=== PATIENT | male | born 1955 | race Caucasian/White ===

== ENCOUNTER 2020-05-29 12:45 | Outpatient (RCR) | payer OTHER, SELFPAY | END 2020-06-03 16:28 | disposition home or self-care (01) | LOC: HO.WCC 12:45 | PROVIDERS: PCP Internal Medicine Geriatric Medicine; Visit Provider Surgery | DX: Z09 Encounter for follow-up examination after completed treatment for conditions other than malignant neoplasm (principal); E11.9 Type 2 diabetes mellitus without complications; Z87.2 Personal history of diseases of the skin and subcutaneous tissue | CPT/HCPCS: 99212 ==

== ENCOUNTER → 2020-07-01 09:34 | Outpatient (BNVA) | payer OTHER, SELFPAY | PROVIDERS: PCP Internal Medicine Geriatric Medicine; Visit Provider Internal Medicine | DX: I25.10 Atherosclerotic heart disease of native coronary artery without angina pectoris (principal); I48.0 Paroxysmal atrial fibrillation; I50.32 Chronic diastolic (congestive) heart failure; E11.22 Type 2 diabetes mellitus with diabetic chronic kidney disease; I12.9 Hypertensive chronic kidney disease with stage 1 through stage 4 chronic kidney disease, or unspecified chronic kidney disease; N18.9 Chronic kidney disease, unspecified; E11.8 Type 2 diabetes mellitus with unspecified complications | CPT/HCPCS: 93005; 99212 ==

== ENCOUNTER 2020-07-15 12:52 | Outpatient (REF) | payer MEDICARE, SELFPAY ==
[2020-07-15 13:21] LABS: Hematocrit 30.9 % (42-52); Hemoglobin 10.6 g/dl (14.0-18.0); Mean Corpuscular HGB Conc 34.3 g/dl (31.0-36.0); Mean Corpuscular Hemoglobin 31.7 pg (27.0-33.0); Mean Corpuscular Volume 92.5 fL (80-98); Platelet Count 186 X10*3/uL (160-400); Red Blood Count 3.34 X10*6/uL (4.60-5.80); Red Cell Distribution Width 13.6 % (11.0-16.0); White Blood Count 7.9 X10*3/uL (4.8-10.8)
[2020-07-15 13:26] LABS: INTERNATIONAL NORM RATIO 1.2 (0.9-1.1); Prothrombin Time 14.1 SEC (10.8-13.0)
[2020-07-15 14:10] LABS: Anion Gap 16 (12-20); Blood Urea Nitrogen 45 mg/dL (9-16); Carbon Dioxide 28 mmol/L (22-29); Chloride 96 mmol/L (96-108); Estimated Glomerular Filt Rate 18; Glucose Random 365 mg/dL (60-115); Potassium 4.6 mmol/l (3.3-5.1); Sodium 135 mmol/L (135-145)
== END 2020-07-15 12:53 | disposition home or self-care (01) ==
LOC: HO.LAB 12:52
PROVIDERS: PCP Internal Medicine Geriatric Medicine; Visit Provider Internal Medicine
DX: I25.10 Atherosclerotic heart disease of native coronary artery without angina pectoris (principal)
CPT/HCPCS: 36415; 80048; 85027; 85610

== ENCOUNTER → 2020-08-07 14:06 | Outpatient (BNVA) | payer OTHER, MEDICAID, SELFPAY | PROVIDERS: PCP Internal Medicine Geriatric Medicine; Visit Provider Internal Medicine | DX: I25.10 Atherosclerotic heart disease of native coronary artery without angina pectoris (principal); I48.0 Paroxysmal atrial fibrillation; N18.9 Chronic kidney disease, unspecified; I13.0 Hypertensive heart and chronic kidney disease with heart failure and stage 1 through stage 4 chronic kidney disease, or unspecified chronic kidney disease; I50.32 Chronic diastolic (congestive) heart failure; E11.22 Type 2 diabetes mellitus with diabetic chronic kidney disease | CPT/HCPCS: 99212 ==

== ENCOUNTER → 2020-08-15 13:53 | Outpatient (REF) | payer MEDICARE, SELFPAY ==
--- NOTE | 2020-08-15 13:58 | CA_ITS ---
Transthoracic Echocardiogram Patient (Last, First, Middle): Liang Nunez, Gender: Male Date of : 1955 Age: 65 Procedure Date: 08/15/2020 Procedure Type: Transthoracic Echocardiogram Location: OP Height: 160.02 cm Weight: 72.58 kg BSA: 1.76 m2 Heart Rate: bpm BP: 122 / 68 mmHg [employer] Captain: Referring MD: Frankie Abarca MD Symptoms: I25.10 - Atherosclerotic heart disease of [place] coronary artery without angina pectoris Study Quality: Fair ECG Rhythm: Sinus Conclusions: - The left ventricular systolic function is mildly decreased. The visually estimated ejection fraction is between 40-45%. - Mild global hypokinesis with additional regionality along the inferior wall. - No obvious valvular pathology seen on this study. Findings Left Ventricle Normal left ventricular cavity size. There is moderately increased left ventricular wall thickness. The left ventricular systolic function is mildly decreased. The visually estimated ejection fraction is between 40-45%. E/E prime ratio is >15, consistent with elevated filling pressures. Evidence suggests grade I (mild) diastolic dysfunction. Wall Motion Rest Echo Findings The basal inferior and mid inferior segments are hypokinetic. Right Ventricle Normal right ventricular cavity size and systolic function. Atria The left atrium is normal in size. The right atrium is normal in size. Aortic Valve There is a normal trileaflet aortic valve. There is mild calcification of the aortic valve. There is no aortic valve regurgitation. Mitral Valve The mitral valve appears normal. There is trace mitral valve regurgitation. There is no mitral valve stenosis. Pulmonic Valve The pulmonic valve was not well visualized. Tricuspid Valve Normal tricuspid valve structure. There is trace tricuspid valve regurgitation. The pulmonary artery systolic pressure is normal. Great Vessels The aortic annulus, sinuses of valsalva, and asc aorta are normal in size. Venous The inferior vena cava is normal in size and collapses greater than 50% with inspiration. Pericardium/Pleural There is no evidence of pericardial effusion. Prior Study Comparison No significant change compared to prior study dated: 02/04/2020. Recommendations, Care & Conclusions No obvious valvular pathology seen on this study. Measurements 2D Linear Measurements IVSd: 1.28 0.6-0.9/0.6-1.0 cm LVIDd: 4.10 3.9-5.3/4.2-5.9 cm LVIDd Index: 2.33 2.4-3.2/2.2-3.1 cm/m2 LVIDs: 2.71 2.0-3.6 cm LVPWd: 1.32 0.7-1.1 cm Ao Root: 3.30 2.1-3.5 cm LA Diam: 3.50 2.7-3.8/3.0-4.0 cm LAIDs Index: 1.99 1.5-2.3 cm/m2 LV Mass: 241.12 67-162/88-224 g LV Mass Index: 137.00 43-95/49-115 g/m2 LVOT Diam: 2.10 3.0+(-)1.3 cm 2D Systolic Function EF 4C: 43.30 >55% EF 2C: 35.20 >55% EF BiP: 38.90 >55% Mitral Valve MV Pk E: 0.57 MV PK A: 0.94 MV Decel Time: 248.00 E/A: 0.60 E'Lateral: 3.77 E'Medial: 2.90 E/E' Med: 19.60 E/E' Lat: 15.10 PHT: 73.00 MVA PHT: 3.01 Decel [place]: 2.29 Aortic Valve AoV Pk Luiz: 1.25 AoV Mn Luiz: 0.88 AoV VTI: 0.27 AoV Pk Grad: 6.00 Aov Mn Grad: 4.00 YAYA Cont.VTI: 2.17 LVOT LVOT Pk Luiz: 0.82 LVOT Mn Luiz: 0.47 LVOT VTI: 0.17 LVOT Pk Grad: 3.00 LVOT Mn Grad: 1.00 LVOT Diam: 2.10 LVOT Area: 3.46 Diastolic Function MV Pk E: 0.57 MV Pk A: 0.94 E/A: 0.60 E'Medial: 2.90 E/E' Med: 19.60 E' Laterial: 3.77 E/E' Lat: 15.10 Tricuspid Valve TR Pk Luiz: 1.67 TR Pk Grad: 11.00 RA Press: 3.00 RVSP: 14.00 Great Vessels Aorta Ao Root-2D: 3.30 2.0-3.7 cm Ao Asc: 2.70 2.1-3.4 cm Pulmonary Valve PV Pk Luiz: 1.14 Peak PV Grad: 5.00 Updated in Other Vendor System with Status of Final Frankie Abarca MD electronically signed on 08/16/2020 3:49:55 PM with status of Final
== END ==
LOC: HO.CARD 13:53
PROVIDERS: PCP Internal Medicine Geriatric Medicine; Visit Provider Internal Medicine
DX: I25.10 Atherosclerotic heart disease of native coronary artery without angina pectoris (principal); I50.32 Chronic diastolic (congestive) heart failure
CPT/HCPCS: 93306

== ENCOUNTER 2020-11-10 04:37 | Emergency (ER) | payer MEDICARE, SELFPAY ==
--- NOTE | ~2020-11-10 | CT_ITS ---
EXAMINATION: CT CHEST WITHOUT CONTRAST CT ABDOMEN AND PELVIS WITHOUT CONTRAST CLINICAL INFORMATION: Fall with right rib pain. Right upper quadrant and right lower quadrant tenderness. COMPARISON: 01/29/2020 TECHNIQUE: Multidetector volumetric imaging was performed through the chest, abdomen and pelvis without contrast. Sagittal and coronal reformatted images were obtained on the technologist's workstation. Axial MIP volume rendering provided. This CT examination was performed using dose optimization techniques as appropriate, variously including the following: *Automated exposure control *Adjustment of mA and/or kV according to patient size (this includes techniques or standardized protocols for targeted exams where dose is matched to indication/reason for exam; i.e. extremities or head) *Use of iterative reconstruction technique DLP: 1341 mGy-cm. FINDINGS: CHEST: Lungs: The central airways are patent. Minimal dependent atelectasis bilaterally. No consolidation. No pleural effusion or pneumothorax. There are no pulmonary parenchymal nodules. Mediastinum: The heart is of normal size. Coronary artery calcifications are present. There is no pericardial effusion. Central vascular structures are unremarkable. No hilar or mediastinal lymphadenopathy. Chest Wall/Axilla: No lymphadenopathy. No chest wall mass. ABDOMEN/PELVIS: Liver, Gallbladder, Biliary Tree: The liver is normal in size, shape, and attenuation. No focal hepatic lesion or biliary ductal dilatation is present. Multiple small stones are seen layering in the gallbladder lumen. No wall thickening or pericholecystic fluid. Pancreas: Unremarkable. Spleen: Unremarkable. Adrenal Glands: Unremarkable. Kidneys and Ureters: The kidneys are normal in size, shape, and attenuation. No hydronephrosis, hydroureter or calculi seen. Symmetric bilateral perinephric stranding. Bladder: Unremarkable. Gastrointestinal Tract: The stomach is unremarkable. Normal caliber small bowel. There is no obstruction. No colonic wall thickening or inflammatory change. Anastomotic suture line at the distal ileum. The appendix is unremarkable. Abdominal Wall: No hernia is demonstrated. Lymphovascular Structures: Lymph nodes: Normal. Vascular: Normal caliber aorta with mild atherosclerotic calcification. Pelvic Viscera: The prostate and seminal vesicles are unremarkable. OSSEOUS STRUCTURES: No suspicious sclerotic or lytic bone lesions are identified. Multilevel degenerative changes throughout the spine. Vertebral body height and alignment is maintained. Multiple healed rib fractures are seen bilaterally. Chronic healed right clavicular fracture. There is a subtle lucency through the right lateral 10th rib. This could represent a nondisplaced fracture. Screw fixation hardware in the proximal right femur. CT/CT abdomen pelvis wo con IMPRESSION: Subtle lucency through the right lateral 10th rib may represent a nondisplaced fracture. Otherwise no acute traumatic finding of the chest, abdomen, or pelvis. Cholelithiasis.
--- NOTE | ~2020-11-10 | CT_ITS ---
EXAMINATION: NONCONTRAST HEAD CT NONCONTRAST CERVICAL SPINE CT INDICATION INFORMATION: Fall. Neck pain. COMPARISON: 03/11/2019 TECHNIQUE: Separate noncontrast CT examinations of the head and cervical spine were performed. Coronal and sagittal images were created for each examination at the technologist workstation. This CT examination was performed using dose optimization techniques as appropriate, variously including the following: *Automated exposure control *Adjustment of mA and/or kV according to patient size (this includes techniques or standardized protocols for targeted exams where dose is matched to indication/reason for exam; i.e. extremities or head) *Use of iterative reconstruction technique DLP: 1141 mGy-cm FINDINGS: Head: There is no evidence of acute intracranial hemorrhage or territorial infarction. No abnormal mass effect or midline shift is seen. [place] to white matter differentiation is well preserved. No extra-axial fluid collections are identified. No hydrocephalus. Proportional prominence of the ventricles and sulcal spaces is consistent with mild volume loss. Patchy periventricular and deep white matter hypoattenuation is consistent with mild small vessel ischemic changes. Chronic lacunar infarct in the left basal ganglia. Bilateral basal ganglia mineralization No acute osseous or soft tissue abnormality. The mastoid air cells and visualized portions of the paranasal sinuses are well aerated. Cervical spine: There is anatomic alignment of the vertebral bodies and posterior elements. The atlantoaxial and atlantooccipital articulations are intact. Vertebral body heights are maintained. There is multilevel intervertebral disc space narrowing with endplate osteophyte formation and facet arthropathy. No evidence of acute fracture. No prevertebral soft tissue swelling. Visualized portions of the lung apices are unremarkable. The thyroid gland is unremarkable. CT/CT cervical spine wo con IMPRESSION: 1. No acute intracranial finding. 2. No acute fracture or malalignment of the cervical spine. Mild to moderate degenerative changes.
[2020-11-10 04:45] VITALS: BP 125/85; PULSE 70; RESP 16; TEMP 36.9; O2SAT 99; BMI 26.5
--- NOTE | 2020-11-10 04:51 | PC.NURSE ---
at bedside for primary eval.
--- NOTE | 2020-11-10 04:54 | PC.NURSE ---
Per pt and rear admiral, pt reports a slip and fall while walking yesterday @ 2300, states he did not have anything to hold onto. Pt reporting +LOC. Pt aware of plan for CT of head, neck and abdomen.
[2020-11-10] MEDS: Acetaminophen 325 MG TABLET 975 MG PO (05:07)
[2020-11-10] MEDS: oxyCODONE HCl Immed Release 5 MG TABLET PO (05:07)
--- NOTE | 2020-11-10 05:09 | PC.NURSE ---
Pt medicated per SEP. Off to CT on hospital bed.
--- NOTE | 2020-11-10 06:13 | ED.GENADULT ---
HPI - General Adult General Chief complaint: Fall Stated complaint: Abdominal Pain Time Seen by Provider: 11/10/20 04:48 Source: patient Mode of arrival: EMS Limitations: language barrier (The patient's 1st language is [place], he does speak some Kyrgyz, the [employer] media services coordinator was used to obtain information) History of Present Illness HPI narrative: 65-year-old male who presents emergency department for evaluation of injuries from a fall that occurred last night at 11:00 p.m... The patient states that he lost his balance and fell. He states that he struck his head, right side of his chest and abdomen on the floor. He believes that he may have had a brief loss of consciousness. He is currently complaining of a mild, constant, throbbing headache located throughout his entire head. He is also complaining of right-sided rib pain which is a sharp pain which is worse with breathing and movement and is 8/10 at its worst. He is also complaining of right upper abdominal pain which is vague in describing, the pain is constant and mild to moderate intensity. The patient states that he was unable to sleep secondary to his pain therefore [facility] and came to the emergency department for evaluation. Related Data Home Medications Medication Instructions Recorded Confirmed amiodarone 200 mg tablet 200 mg PO QAM 07/01/20 08/07/20 apixaban 2.5 mg tablet 2.5 mg PO BID 07/01/20 08/07/20 aspirin 81 mg tablet,delayed 81 mg PO DAILY 07/01/20 08/07/20 release bumetanide 1 mg tablet 1 mg PO BID 07/01/20 08/07/20 carvedilol 3.125 mg tablet 3.125 mg PO BID 07/01/20 08/07/20 cholecalciferol (vitamin D3) 50 50 mcg PO DAILY 07/01/20 08/07/20 mcg (2,000 unit) tablet fluoxetine 20 mg capsule 20 mg PO QAM 07/01/20 08/07/20 Previous Rx's Medication Instructions Recorded insulin aspart U-100 100 unit/mL 150 unit SUBCUT QPM #3 ml 07/08/20 (3 mL) subcutaneous pen insulin glargine 100 unit/mL (3 30 unit SUBCUT QAM #3 ml 07/08/20 mL) subcutaneous pen atorvastatin 80 mg tablet 80 mg PO BEDTIME #90 tab 07/22/20 oxycodone 5 mg PO Q4H PRN #14 tab 11/10/20 Allergies Allergy/AdvReac Type Severity Reaction Status Date / Time No Known Allergies Allergy Verified 11/10/20 04:50 Review of Systems Review of Systems: Yes all other systems are reviewed and are negative FORMERLY [facility], [facility]–1983 Past Medical History FORMERLY [facility], [facility]–1983 Narrative: The patient denies tobacco, alcohol and drug use. Medical History Atherosclerotic cardiovascular disease Chronic heart failure with preserved ejection fraction Chronic kidney disease, unspecified ESRD (end stage renal disease) on dialysis Essential hypertension PAF (paroxysmal atrial fibrillation) Type 2 diabetes mellitus with unspecified complications Surgical History History of cardiac catheterization (~07/18/20) History of colon resection Family History Family History Father Esophageal cancer Mother Diabetes Hypertension Social History Social History Smoking Status: Never smoker Advance Directives: No Physical Exam Vital Signs: Vital Signs: Last Vital Signs Temp 98.4 F 11/10/20 04:45 Pulse 70 11/10/20 04:45 Resp 16 11/10/20 04:45 BP 125/85 11/10/20 04:45 Pulse Ox 99 11/10/20 04:45 Body Mass Index 26.5 Const: General: cooperative and healthy appearing Orientation/consciousness: oriented to person and oriented to place Limitations: no limitations HENMT: Head: Yes normal to inspection, Yes normocephalic and Yes other (Right forehead ecchymosis and hematoma) Ears: external ears normal General nose exam: Normal external nose present Face and sinus: Yes normal facial exam Mouth: Normal oral and palatal mucosa present Throat: Yes posterior oropharynx normal Eyes: Periorbital: periorbital findings normal Eyelids: Yes eyelids normal Conjunctivae: conjunctivae normal Sclerae: sclerae normal Corneas: corneas normal Pupils: Equal, round and reactive pupils present Direct Ophthalmoscopy: normal light reflex Neck: Neck: Yes full ROM, Yes no lymphadenopathy, Yes no meningeal signs, Yes trachea midline and Yes supple Chest: Chest palpation & inspection: normal inspection of the chest and tenderness rib (Right lateral lower ribs) Resp: Effort & Inspection: normal respiratory effort and able to speak in complete sentences Auscultation: clear to auscultation bilaterally Cardio: Rate: regular rate Rhythm: regular rhythm Heart sounds: S1 normal heart sound present, S2 normal heart sound present and no murmurs GI: Inspection: Yes normal to inspection Palpation (GI): Soft to palpation, Tenderness to palpation present (GI) in the RUQ (Moderate), no guarding, not rigid and No hepatosplenomegaly present : General: Yes no CVA tenderness Back/Spine/Pelvis: Back: no CVA tenderness Cervical Spine: normal cervical lordosis Thoracic/Lumbar Spine: thoracic and lumbar spine normal to inspection Skin: Lesions: no lesions Rashes: no rashes Wounds: no wounds Neuro: General: oriented to person, oriented to place and no meningeal signs Cranial nerves: Yes CN's II-XII intact bilaterally and Yes Equal, round and reactive pupils present Cognition (Neuro): normal cognition Motor exam (neuro): 5/5 motor strength present throughout Extrem: General: Yes normal to inspection and Yes full ROM Psych: Appearance: well kempt Mental Status: mental status grossly normal Speech and movement: Normal speech and movement present Affect: normal affect Attitude: cooperative Thought process: Normal thought process present Thought content: Normal thought content present Course Course Course Narrative: 65-year-old male who presents emergency department for evaluation of injuries secondary to a fall that occurred last night at 11:00 p.m.. The patient states that he lost his balance, tripped and fell striking his head, and landing on his right chest and abdomen. The patient is on Eliquis. Examination did reveal evidence of head injury with a a right forehead hematoma, he also had tenderness with palpation of his right lower lateral ribcage and right upper quadrant of his abdomen. CT scan of the head, cervical spine, chest, abdomen pelvis were obtained. The only finding is a possible nondisplaced right 10th rib fracture. The patient was treated with oxycodone and Tylenol orally with improvement of his pain. He will be discharged home with printed instructions on rib fractures. He will also be given a prescription for oxycodone and he was advised to take Tylenol as well for his pain. He will need to follow-up with his PCP for re-evaluation within 2 days. Discharge Plan Discharge Clinical Impression: Fall Qualifiers: Encounter type: initial encounter Qualified Code(s): W19.XXXA - Unspecified fall, initial encounter Closed head injury Qualifiers: Encounter type: initial encounter Qualified Code(s): S09.90XA - Unspecified injury of head, initial encounter Abdominal wall contusion Qualifiers: Encounter type: initial encounter Qualified Code(s): S30.1XXA - Contusion of abdominal wall, initial encounter Closed rib fracture Qualifiers: Encounter type: initial encounter Rib fracture type: single rib Laterality: right Qualified Code(s): S22.31XA - Fracture of one rib, right side, initial encounter for closed fracture Patient Disposition: Home, Self-Care Instructions: Rib Fracture (ED), Head Injury (ED) Additional Instructions: The CT scan of your head, neck and abdomen revealed no abnormalities. The CT scan of your chest revealed a nondisplaced right sided 10th rib fracture. Take Tylenol (acetaminophen) 500 mg pills, 2 pills every 4 to 6 hours as needed for pain. For pain not relieved by Tylenol take oxycodone 5 mg pills, 1 pill every 4-6 hours as needed for pain. This medication is a narcotic pain medication and can be addicting. If your concerned about addiction do not get this medication filled or you can ask your pharmacist to give you less pills than prescribed. This medication will make you sleepy and constipated. Do not take tramadol while taking oxycodone. Follow-up with your doctor in 2 days. Please return to the emergency department if your symptoms get worse or if you develop any symptoms that are concerning to you. Prescriptions: New oxycodone 5 mg tablet 5 mg PO Q4H PRN (Reason: pain) Qty: 14 RF: 0 No Action atorvastatin 80 mg tablet 80 mg PO BEDTIME Qty: 90 RF: 3 aspirin 81 mg tablet,delayed release (DR/EC) 81 mg PO DAILY RF: 0 amiodarone 200 mg tablet 200 mg PO QAM RF: 0 carvedilol 3.125 mg tablet 3.125 mg PO BID RF: 0 bumetanide 1 mg tablet 1 mg PO BID RF: 0 Eliquis 2.5 mg tablet 2.5 mg PO BID RF: 0 cholecalciferol (vitamin D3) 50 mcg (2,000 unit) tablet 50 mcg PO DAILY RF: 0 fluoxetine 20 mg capsule 20 mg PO QAM RF: 0 Lantus Solostar U-100 Insulin 100 unit/mL (3 mL) insulin pen 30 unit subcut QAM Qty: 3 RF: 0 insulin aspart U-100 [Novolog Flexpen U-100 Insulin] 100 unit/mL (3 mL) insulin pen 150 unit subcut QPM Qty: 3 RF: 0 Print Language: [place]
--- NOTE | 2020-11-10 06:16 | PC.NURSE ---
This RN calling [facility] in [place]. [facility] agreeable to accepting pt if he arrives by dialysis by 0900. MD at bedside discussing results and plan of care.
[2020-11-10 06:40] VITALS: BP 169/84; PULSE 61; RESP 16; O2SAT 96
== END 2020-11-10 07:10 | disposition home or self-care (01) ==
PROVIDERS: Emergency Provider Emergency Medicine Emergency Medical Services; PCP Internal Medicine Geriatric Medicine
DX: S09.90XA Unspecified injury of head, initial encounter (principal); S30.1XXA Contusion of abdominal wall, initial encounter; S22.31XA Fracture of one rib, right side, initial encounter for closed fracture; W01.10XA Fall on same level from slipping, tripping and stumbling with subsequent striking against unspecified object, initial encounter; E11.22 Type 2 diabetes mellitus with diabetic chronic kidney disease; I13.2 Hypertensive heart and chronic kidney disease with heart failure and with stage 5 chronic kidney disease, or end stage renal disease; I50.9 Heart failure, unspecified; N18.6 End stage renal disease; Z99.2 Dependence on renal dialysis; Y93.9 Activity, unspecified; Y92.039 Unspecified place in apartment as the place of occurrence of the external cause; Y99.9 Unspecified external cause status
CPT/HCPCS: 70450; 71250; 72125; 74176; 99284

== ENCOUNTER 2021-02-01 16:29 | Emergency (ER) | payer MEDICARE, SELFPAY ==
--- NOTE | 2021-02-01 | ECG_ITS ---
Test Reason : LOC Blood Pressure : / mmHG Vent. Rate : 056 BPM Atrial Rate : 056 BPM P-R Int : 218 ms QRS Dur : 126 ms QT Int : 492 ms P-R-T Axes : 034 -51 122 degrees QTc Int : 474 ms Sinus bradycardia with 1st degree A-V block Left axis deviation Non-specific intra-ventricular conduction block T wave abnormality, consider lateral ischemia Abnormal ECG When compared with ECG of 13-FEB-2020 16:17, [place] interval has increased Vent. rate has decreased BY 34 BPM T wave inversion more evident in Lateral leads Referred By: Marilee Orellana Electronically Signed By:WILFREDO THOMPSON
--- NOTE | ~2021-02-01 | CT_ITS ---
EXAMINATION: CT HEAD WITHOUT CONTRAST CT FACIAL BONES WITHOUT CONTRAST CT CERVICAL SPINE WITHOUT CONTRAST CLINICAL INFORMATION: Fall and head injury. Fall with neck pain. Right orbital hematoma after fall. Rule out orbital fracture COMPARISON: CT head and C-spine 11/10/2020 TECHNIQUE: Imaging was performed from the skull base to vertex without intravenous administration of contrast. In addition, helical noncontrast CT imaging was acquired through the cervical spine and facial bones and source images were reviewed along with axial reconstructions and sagittal and coronal MPRs. This CT examination was performed using dose optimization techniques as appropriate, variously including the following: *Automated exposure control *Adjustment of mA and/or kV according to patient size (this includes techniques or standardized protocols for targeted exams where dose is matched to indication/reason for exam; i.e. extremities or head) *Use of iterative reconstruction technique Total exam dose-length product [id number] mGy-cm FINDINGS: HEAD: No intracranial mass, hemorrhage, or midline shift is visualized. Similar appearance of the ventricles and sulci. No extra-axial collections are identified. Mild patchy periventricular and subcortical white matter hypodensity is seen, nonspecific but typically attributed to chronic microvascular white matter ischemic changes. Again seen is similar chronic CSF density lacunar infarct of the left basal ganglia. Chronic senescent basal ganglia calcifications are again noted as well. There is trace fluid in the left mastoid air cells inferiorly. FACIAL BONES: Right supraorbital scalp soft tissue swelling is seen. No orbital or facial bone fracture seen. The right globe and orbits are normal. Right maxillary sinus mucous retention cyst or polyp. No sinus fluid levels to suggest acute sinusitis. No depressed nasal bone fracture. There is rightward nasal septal deviation present previously. No mandibular fracture seen. CERVICAL SPINE: There is straightening and mild reversal of the normal cervical lordosis. Normal prevertebral soft tissues. There is loss of disc height with endplate sclerosis and anterior osteophytosis most notable at C5-C6 and C6-C7, similar to prior studies. Multilevel facet arthropathy is again seen. Mild posterior broad-based disc bulges are again seen several levels. No acute fracture seen. CT/CT cervical spine wo con IMPRESSION: Right supraorbital scalp soft tissue hematoma but no facial fracture seen. Similar appearance of chronic intracranial abnormalities but no acute intracranial hemorrhage. Similar appearance of chronic multilevel degenerative changes of the cervical spine with no acute fracture or dislocation seen.
[2021-02-01 16:34] VITALS: BP 138/82; BP 171/72; PULSE 58; PULSE 59; RESP 16; TEMP 37.1; O2SAT 95; O2SAT 97; BMI 29.0
--- NOTE | 2021-02-01 17:00 | ECG_ITS ---
Test Reason : LOC Blood Pressure : / mmHG Vent. Rate : 056 BPM Atrial Rate : 056 BPM P-R Int : 220 ms QRS Dur : 124 ms QT Int : 488 ms P-R-T Axes : 025 -50 124 degrees QTc Int : 470 ms Sinus bradycardia with 1st degree A-V block Left anterior fascicular block ST & T wave abnormality, consider lateral ischemia Abnormal ECG When compared with ECG of 01-FEB-2021 16:45, No significant change was found Referred By: Marilee Orellana Electronically Signed By:WILFREDO THOMPSON
--- NOTE | 2021-02-01 17:00 | ED.FALL ---
HPI - Fall General Chief Complaint: Fall Stated Complaint: fall Time Seen by Provider: 02/01/21 16:57 Source: patient, EMS and hydro excavation operator Mode of arrival: EMS Limitations: no limitations History of Present Illness HPI Narrative: 66-year-old male history of end-stage renal disease and is as came in by EMS for evaluation after a fall. Patient was in the did not realize he was at the edge of the bed inpatient turn fell on the floor had some nightstand next to the bed hitting his right, patient landed on hands and knees and patient got himself up back to the bed, patient normally lives home by himself he has a visiting POWER GENERATING PLANT OPERATOR who found him with right thigh hematoma, patient decided to come to the hospital for further evaluation. Patient complained of right orbital mild pain, no neck pain, no headache, no LOC. Patient scheduled for dialysis. Related Data Home Medications Medication Instructions Recorded Confirmed amiodarone 200 mg tablet 200 mg PO QAM 07/01/20 08/07/20 apixaban 2.5 mg tablet 2.5 mg PO BID 07/01/20 08/07/20 aspirin 81 mg tablet,delayed 81 mg PO DAILY 07/01/20 08/07/20 release bumetanide 1 mg tablet 1 mg PO BID 07/01/20 08/07/20 carvedilol 3.125 mg tablet 3.125 mg PO BID 07/01/20 08/07/20 cholecalciferol (vitamin D3) 50 50 mcg PO DAILY 07/01/20 08/07/20 mcg (2,000 unit) tablet fluoxetine 20 mg capsule 20 mg PO QAM 07/01/20 08/07/20 Previous Rx's Medication Instructions Recorded insulin aspart U-100 100 unit/mL 150 unit SUBCUT QPM #3 ml 07/08/20 (3 mL) subcutaneous pen insulin glargine 100 unit/mL (3 30 unit SUBCUT QAM #3 ml 07/08/20 mL) subcutaneous pen atorvastatin 80 mg tablet 80 mg PO BEDTIME #90 tab 07/22/20 oxycodone 5 mg PO Q4H PRN #14 tab 11/10/20 Allergies Allergy/AdvReac Type Severity Reaction Status Date / Time No Known Allergies Allergy Verified 11/10/20 04:50 Review of Systems Review of Systems: All other systems are reviewed and are negative Constitutional: Reports as per HPI and Reports no additional constitutional complaints Eyes: Reports as per HPI and Reports no additional eye complaints Reports system reviewed and no additional complaints, except as documented Cardiovascular: Reports as per HPI and Reports no additional cardiovascular complaints Respiratory: Reports as per HPI and Reports no additional respiratory complaints Gastrointestinal: Reports as per HPI and Reports no additional gastrointestinal complaints Genitourinary: Reports no additional female genitourinary complaints Musculoskeletal: Reports no additional musculoskeletal complaints Skin/Breast: Reports system reviewed and no additional complaints, except as docu Psychiatric: Reports no additional psychiatric complaints Endocrine: Reports no additional endocrine complaints Hematologic/Lymphatic: Reports no additional hematologic/lymphatic complaints Allergic/Immunologic: Reports no additional allergic/immunologic complaints Reports system reviewed and no additional complaints, except as documented and Reports Abnormal speech present [facility] Past Medical History Medical History Atherosclerotic cardiovascular disease Chronic heart failure with preserved ejection fraction Chronic kidney disease, unspecified ESRD (end stage renal disease) on dialysis Essential hypertension PAF (paroxysmal atrial fibrillation) Type 2 diabetes mellitus with unspecified complications Surgical History History of cardiac catheterization (~07/18/20) History of colon resection Family History Family History Father Esophageal cancer Mother Diabetes Hypertension Social History Social History Advance Directives: No Advance Directives Information Provided: Yes Physical Exam Vital Signs: Vital Signs: Last Vital Signs Temp 97.6 F 02/01/21 18:55 Pulse 55 02/01/21 18:55 Resp 16 02/01/21 18:55 BP 163/80 H 02/01/21 18:55 Pulse Ox 97 02/01/21 18:55 Body Mass Index 29.0 Vital signs have been reviewed as appeared to be correct. Blood pressure normal. Heart rate normal. Respiration rate normal. Temperature normal. Oxygen saturation normal. Appearance: Alert. Oriented X3. No acute distress. Head: Normal external exam. Normocephalic. Atraumatic. No Norris signs noted. No raccoon eyes noted Eyes: PERRLA. EOMI. Right periorbital hematoma. no tender eye movements. ENT: TM's Normal. Pharynx normal. Uvula midline. Moist mucous membranes. No trismus noted. No drooling noted. No muffled voice noted. Neck: Normal inspection. Neck supple. FROM. No adenopathy. Thyroid Normal. No meningeal signs. No neck mass noted. CVS: Normal heart rate and rhythm. Heart sound normal. No murmurs noted. Pulses normal throughout. Respiratory: No respiratory distress. Painless inspiration. Breath sounds normal. No wheezes/rales/rhonchi noted. Chest nontender. No accessory muscle usage noted or decreased air movement noted. Abdomen: Soft and nontender. Bowel sounds normal in all 4 quadrants. No distention noted. No organomegaly noted. No visible injury noted. Back: No CVA tenderness. Full range of motion noted. Skin: Skin warm and dry. Normal skin color. Normal skin turgor. No rashes/lesions/lacerations noted. Extremities: No lower extremity edema. Extremities exhibit normal range of motion. Extremities nontender. Neuro: Oriented X 3. No motor deficit. No sensory deficit. Reflexes normal. Course Course Course Narrative: Assessment and plan. 66-year-old male with end-stage renal disease scheduled to have renal dialysis tomorrow, came in after and mechanical fall from his bed causing left periorbital hematoma. Patient's GCS is 15, normal neuro exam, CT of the head/facial/C-spine is unremarkable. Will discharge, he assures, Tylenol p.r.n.. MDM - Fall Imaging Data Head/C-spine/facial CT.: Radiologist's impression: Right supraorbital scalp soft tissue hematoma but no facial fracture seen. Similar appearance of chronic intracranial abnormalities but no acute intracranial hemorrhage. Similar appearance of chronic multilevel degenerative changes of the cervical spine with no acute fracture or dislocation seen. Discharge Plan Discharge Clinical Impression: Accident due to mechanical fall without injury, Periorbital hematoma of right eye Patient Disposition: Home, Self-Care Instructions: Hematoma (ED) Additional Instructions: Keep your appointment for dialysis tomorrow and be there in time. Prescriptions: No Action atorvastatin 80 mg tablet 80 mg PO BEDTIME Qty: 90 RF: 3 oxycodone 5 mg tablet 5 mg PO Q4H PRN (Reason: pain) Qty: 14 RF: 0 aspirin 81 mg tablet,delayed release (DR/EC) 81 mg PO DAILY RF: 0 amiodarone 200 mg tablet 200 mg PO QAM RF: 0 carvedilol 3.125 mg tablet 3.125 mg PO BID RF: 0 bumetanide 1 mg tablet 1 mg PO BID RF: 0 Eliquis 2.5 mg tablet 2.5 mg PO BID RF: 0 cholecalciferol (vitamin D3) 50 mcg (2,000 unit) tablet 50 mcg PO DAILY RF: 0 fluoxetine 20 mg capsule 20 mg PO QAM RF: 0 Lantus Solostar U-100 Insulin 100 unit/mL (3 mL) insulin pen 30 unit subcut QAM Qty: 3 RF: 0 insulin aspart U-100 [Novolog Flexpen U-100 Insulin] 100 unit/mL (3 mL) insulin pen 150 unit subcut QPM Qty: 3 RF: 0 Referrals: Hailey,MD Rayray [Primary Care Provider] - 2 days
[2021-02-01 17:31] VITALS: BP 196/59; PULSE 55; RESP 16; O2SAT 99
[2021-02-01] MEDS: Acetaminophen 325 MG TABLET 650 MG PO (17:40)
[2021-02-01] MEDS: oxyCODONE HCl Immed Release 5 MG TABLET PO (17:40)
[2021-02-01 18:55] VITALS: BP 163/80; PULSE 55; RESP 16; TEMP 36.4; O2SAT 97
== END 2021-02-01 20:27 | disposition home or self-care (01) ==
PROVIDERS: Emergency Provider Emergency Medicine; PCP Internal Medicine Geriatric Medicine
DX: S00.11XA Contusion of right eyelid and periocular area, initial encounter (principal); W06.XXXA Fall from bed, initial encounter; E11.22 Type 2 diabetes mellitus with diabetic chronic kidney disease; I13.2 Hypertensive heart and chronic kidney disease with heart failure and with stage 5 chronic kidney disease, or end stage renal disease; N18.6 End stage renal disease; I50.9 Heart failure, unspecified; Z99.2 Dependence on renal dialysis; Z79.4 Long term (current) use of insulin; I48.0 Paroxysmal atrial fibrillation; Z79.02 Long term (current) use of antithrombotics/antiplatelets; Z79.82 Long term (current) use of aspirin; Z79.899 Other long term (current) drug therapy; Z79.01 Long term (current) use of anticoagulants; Y93.89 Activity, other specified; Y92.032 Bedroom in apartment as the place of occurrence of the external cause; Y99.9 Unspecified external cause status
CPT/HCPCS: 70450; 70486; 72125; 93005; 99285

== ENCOUNTER 2021-09-21 13:42 | Emergency (ER) | payer MEDICARE, SELFPAY ==
--- NOTE | ~2021-09-21 | XR_ITS ---
EXAMINATION: XR CHEST CLINICAL INFORMATION: Shortness of breath, missed dialysis COMPARISON: None TECHNIQUE: 2 views of the chest were obtained. FINDINGS: The lungs are well-expanded and clear. The heart size and pulmonary vascularity is normal. There is a left central venous dialysis catheter with the tip at the atrial caval junction. No gross bony abnormality seen except for a old healed left lateral ninth and 10th rib fractures. XR/XR chest 2V IMPRESSION: Unremarkable chest exam.
[2021-09-21 13:51] VITALS: BP 161/84; PULSE 64; O2SAT 97
[2021-09-21 13:55] VITALS: BP 168/82; PULSE 59; RESP 15; TEMP 36.6; O2SAT 96; BMI 25.7
--- NOTE | 2021-09-21 14:41 | ED_ITS ---
HPI - General Adult General Chief complaint: General Medical Stated complaint: GENERAL MALAISE Time Seen by Provider: 09/21/21 14:41 Source: patient Mode of arrival: ambulatory Limitations: language barrier History of Present Illness HPI narrative: history obtained by Therapeutic Radiologist. Patient has a cold and phlegm in the chest, starting last week. Patient had medication prescribed but it is not helping. Patient is vaccinated against COVID and flu. No fever. Patient is supposed to get dialysis 3 times a week but has not had it in a week. Onset (ago): week(s) Severity: mild Associated symptoms: cough and weakness Related Data Home Medications Medication Instructions Recorded Confirmed amiodarone 200 mg tablet 200 mg PO QAM 07/01/20 08/07/20 apixaban 2.5 mg tablet 2.5 mg PO BID 07/01/20 08/07/20 aspirin 81 mg tablet,delayed 81 mg PO DAILY 07/01/20 08/07/20 release bumetanide 1 mg tablet 1 mg PO BID 07/01/20 08/07/20 carvedilol 3.125 mg tablet 3.125 mg PO BID 07/01/20 08/07/20 cholecalciferol (vitamin D3) 50 50 mcg PO DAILY 07/01/20 08/07/20 mcg (2,000 unit) tablet fluoxetine 20 mg capsule 20 mg PO QAM 07/01/20 08/07/20 Previous Rx's Medication Instructions Recorded insulin aspart U-100 100 unit/mL 150 unit (1.5 mL) SUBCUT QPM #3 ml 07/08/20 (3 mL) subcutaneous pen (Novolog Flexpen U-100 Insulin aspart) insulin glargine 100 unit/mL (3 30 unit (0.3 mL) SUBCUT QAM #3 ml 07/08/20 mL) subcutaneous pen (Lantus Solostar U-100 Insulin) oxycodone 5 mg tablet 5 mg PO Q4H PRN #14 tab 11/10/20 atorvastatin 80 mg tablet 80 mg PO BEDTIME #90 tab 07/13/21 Allergies Allergy/AdvReac Type Severity Reaction Status Date / Time No Known Allergies Allergy Verified 11/10/20 04:50 Review of Systems Constitutional: Constitutional: Reports no additional constitutional complaints Eyes: Eyes: Reports no additional eye complaints ENT: Denies dizziness Cardiovascular: Cardiovascular: Reports no additional cardiovascular complain ts Respiratory: Respiratory: Reports as per HPI Gastrointestinal: Gastrointestinal: Reports no additional gastrointestinal complaints Musculoskeletal: Musculoskeletal: Reports no additional musculoskeletal complaints Integumentary/Breasts: Skin/Breast: Denies rash Neurologic: Reports system reviewed and no additional complaints, except as documented, Denies dizziness and Denies Sensory deficit (Neuro) Psychiatric: Psychiatric: Denies anxiety [facility] Past Medical History Medical History Atherosclerotic cardiovascular disease Chronic heart failure with preserved ejection fraction Chronic kidney disease, unspecified ESRD (end stage renal disease) on dialysis Essential hypertension PAF (paroxysmal atrial fibrillation) Type 2 diabetes mellitus with unspecified complications Surgical History History of cardiac catheterization (~07/18/20) History of colon resection Family History Family History Father Esophageal cancer Mother Diabetes Hypertension Social History Social History Alcohol intake: current Alcohol intake frequency: a few times a month Patient Tobacco Use Status: Never used Tobacco Use of substances other than those prescribed or required for medical reasons: No Advance Directives: No Advance Directives Information Provided: Yes Physical Exam ED Vital Signs: Vital Signs - 24 hr 09/21/21 13:55 09/21/21 15:45 09/21/21 18:32 Temperature 97.9 F 97.4 F 97.0 F Pulse Rate 59 60 58 Respiratory Rate 15 16 16 Blood Pressure 168/82 H 173/84 H 194/91 H Pulse Oximetry 96 98 98 BMI result Body Mass Index 25.7 Const General: healthy appearing Nutritional Appearance: average body habitus Orientation/consciousness: oriented to person and patient oriented x3 Limitations: no limitations HENMT Head: Yes normal to inspection Ears: external ears normal General nose exam: Normal external nose present Mouth: Normal oral and palatal mucosa present and oropharynx normal Throat: Yes posterior oropharynx normal Eyes General: appearance normal, both eyes and all related structures Neck Neck: Yes normal visual inspection Chest Chest palpation & inspection: normal inspection of the chest Resp Other: bilateral crackles Cardio Jugular venous distension: no JVD Rate: regular rate Rhythm: regular rhythm Heart sounds: S1 normal heart sound present and S2 normal heart sound present GI Inspection: Yes normal to inspection Palpation (GI): Soft to palpation, nontender and No hepatosplenomegaly present Auscultation: normal bowel sounds General: Yes no CVA tenderness Back/Spine/Pelvis Back: no CVA tenderness Skin General skin exam: no rashes or lesions noted Neuro General: oriented to person and patient oriented x3 Cranial nerves: Yes CN's II-XII intact bilaterally Motor exam (neuro): 5/5 motor strength present throughout Sensory Exam: No Sensory deficit (Neuro) Extrem General: Yes normal to inspection Psych Appearance: grossly normal Course Reevaluation(s) Reevaluation #1: disucssed with family and patient, that the patient needs dialysis. He is scheduled for Tuesday and he must go. Discussed with case management as well Time: 19:06 Medical Decision Making Lab Data Result diagrams: 09/21/21 16:02 09/21/21 16:02 Labs: Lab Results 09/21/21 09/21/21 Range/Units 16:02 16:02 WBC 8.3 (4.8-10.8) X10*3/uL RBC 3.27 L (4.60-5.80) X10*6/uL Hgb 9.7 L (14.0-18.0) g/dl Hct 28.1 L (42.0-52.0) % MCV 85.9 (80.0-98.0) fL MCH 29.7 (27.0-33.0) pg MCHC 34.5 (31.0-36.0) g/dl RDW 14.2 (11.0-16.0) % Plt Count 242 (160-400) X10*3/uL MPV 9.1 L (9.4-12.4) fL Immature Gran % (Auto) 1.0 H (0.0-0.4) % Neut % (Auto) 53.5 (45-73) % Lymph % (Auto) 38.2 (20-40) % [place] % (Auto) 5.6 (2-11) % Eos % (Auto) 1.2 (0-4) % Baso % (Auto) 0.5 (0-2) % Lymph # (Auto) 3.2 (1.2-4.9) X10*3/uL [place] # (Auto) 0.5 (0.1-1.2) X10*3/uL Eos # (Auto) 0.1 (0.0-0.4) X10*3/uL Baso # (Auto) 0.0 (0.0-0.2) X10*3/uL Abs Immat Gran (auto) 0.08 H (0.00-0.03) X10*3/uL Absolute Neuts (auto) 4.5 (2.0-8.3) x10*3/uL Absolute Nucleated RBC 0.000 (0.0-0.012) X10*3/uL Nucleated RBC % (auto) 0.0 (0.0-0.2) /100WBC Sodium 134 L (135-145) mmol/L Potassium 5.4 H (3.3-5.1) mmol/L Chloride 101 (96-108) mmol/L Carbon Dioxide 20 L (22-29) mmol/L Anion Gap 18 (12-20) BUN 45 H (9-16) mg/dL Creatinine 4.10 H* (0.5-1.4) mg/dL Estim Creat Clear Calc 14.4 Estimated GFR 15 Random Glucose 146 H D (60-115) mg/dL Calcium 9.1 (8.4-10.2) mg/dL ECG Data Attestation: I personally reviewed and interpreted this ECG as follows: Interpretation: sinus rate 60, RBBB, no st or twave changes Discharge Plan Discharge Clinical Impression: Chronic kidney disease, unspecified Patient Disposition: Home, Self-Care Instructions: Dialysis Diet (DC), Hemodialysis (DC) Prescriptions: No Action atorvastatin 80 mg tablet 80 mg PO BEDTIME Qty: 90 2RF oxycodone 5 mg tablet 5 mg PO Q4H PRN (Reason: pain) Qty: 14 0RF Rx Instructions: Patient may request partial fill aspirin 81 mg tablet,delayed release (DR/EC) 81 mg PO DAILY 0RF amiodarone 200 mg tablet 200 mg PO QAM 0RF carvedilol 3.125 mg tablet 3.125 mg PO BID 0RF bumetanide 1 mg tablet 1 mg PO BID 0RF Eliquis 2.5 mg tablet 2.5 mg PO BID 0RF cholecalciferol (vitamin D3) 50 mcg (2,000 unit) tablet 50 mcg PO DAILY 0RF fluoxetine 20 mg capsule 20 mg PO QAM 0RF Lantus Solostar U-100 Insulin 100 unit/mL (3 mL) insulin pen 30 unit subcut QAM Qty: 3 0RF insulin aspart U-100 [Novolog Flexpen U-100 Insulin] 100 unit/mL (3 mL) insulin pen 150 unit subcut QPM Qty: 3 0RF Rx Instructions: sliding scale Referrals: Physician,Unknown J [Primary Care Provider] - 3 days
--- NOTE | 2021-09-21 14:48 | ECG_ITS ---
Test Reason : WEAKNESS Blood Pressure : / mmHG Vent. Rate : 059 BPM Atrial Rate : 059 BPM P-R Int : 202 ms QRS Dur : 162 ms QT Int : 550 ms P-R-T Axes : 048 -85 049 degrees QTc Int : 544 ms Sinus bradycardia Right bundle branch block Left anterior fascicular block Bifascicular block Abnormal ECG When compared with ECG of 01-FEB-2021 17:29, Right bundle branch block is now Present Referred By: Zachary Isaac Electronically Signed By:WILFREDO THOMPSON
[2021-09-21 15:45] VITALS: BP 173/84; PULSE 60; RESP 16; TEMP 36.3; O2SAT 98
--- NOTE | 2021-09-21 15:45 | PC.NURSE ---
PATIENT WAS CHANGE INTO HOSPITAL ATTIRE BY THIS PCT .
[2021-09-21 16:14] LABS: MANUAL DIFF FLAG NO
[2021-09-21 16:21] LABS: Basophils Percent Auto 0.5 % (0-2); Eosinophils Absolute Auto 0.1 X10*3/uL (0.0-0.4); Eosinophils Percent Auto 1.2 % (0-4); Hematocrit 28.1 % (42.0-52.0); Hemoglobin 9.7 g/dl (14.0-18.0); Imm Gran Abs Auto 0.08 X10*3/uL (0.00-0.03); Lymphocytes Absolute Auto 3.2 X10*3/uL (1.2-4.9); Lymphocytes Percent Auto 38.2 % (20-40); Mean Corpuscular HGB Conc 34.5 g/dl (31.0-36.0); Mean Corpuscular Hemoglobin 29.7 pg (27.0-33.0); Mean Corpuscular Volume 85.9 fL (80.0-98.0); Mean Platelet Volume 9.1 fL (9.4-12.4); Monocytes Absolute Auto 0.5 X10*3/uL (0.1-1.2); Monocytes Percent Auto 5.6 % (2-11); Neutrophils Absolute Auto 4.5 x10*3/uL (2.0-8.3); Neutrophils Percent Auto 53.5 % (45-73); Platelet Count 242 X10*3/uL (160-400); Red Blood Count 3.27 X10*6/uL (4.60-5.80); Red Cell Distribution Width 14.2 % (11.0-16.0); White Blood Count 8.3 X10*3/uL (4.8-10.8)
[2021-09-21 17:16] LABS: Anion Gap 18 (12-20); Blood Urea Nitrogen 45 mg/dL (9-16); Calcium 9.1 mg/dL (8.4-10.2); Carbon Dioxide 20 mmol/L (22-29); Chloride 101 mmol/L (96-108); Creatinine Clr Calc Pharmacy 14.4; Estimated Glomerular Filt Rate 15; Glucose Random 146 mg/dL (60-115); Potassium 5.4 mmol/L (3.3-5.1); Sodium 134 mmol/L (135-145)
--- NOTE | 2021-09-21 18:02 | MHC.CM.ED ---
CM met with patient via instrument checker at 1630. Pt lives alone and has CLINICAL VETERINARIAN services through [facility]. Pt uses a walker. Pt has dialysis M-W-. Pt has not attended dialysis in a week. Pt unsure of facility. Pt is poor historian. Will speak with HCP/sister, Alysia Nunez ([phone]). D/C plan pending medical work-up. CM to follow for d/c needs.
--- NOTE | 2021-09-21 18:05 | MHC.CM.ED ---
HCP/sister Alysia at bedside at 1700. She speak Barbadian. Refueling Ramp Attendant present. Alysia believes that patient goes to [facility] for dialysis ([place] Alysia tells CM that the patient has VIDEO SOFTWARE ENGINEER's in the morning and evening. They provide care, cleaning and meal prep. Pt also has a life alert. Alysia tells CM that she is completing [facility] paperwork to have weekly RN visits. Alysia aware that the medical work-up is pending and depending on his labs, he will either be d/c home or be admitted. Alysia requests T/c with update. Alysia tells CM that pt will need an ambulance home, as their is no one to provide transportation home. CM to assess for d/c needs.
--- NOTE | 2021-09-21 18:11 | MHC.CM.ED ---
Call into DYLON Tabares ([phone]), to verify patient's status and appointment schedule. Message left at 1715. CM to follow for d/c needs.
--- NOTE | 2021-09-21 18:14 | MHC.CM.ED ---
1800. Per Dr. Isaac, pt to be d/c home if CM can verify that pt will go to dialysis on Tuesday. Requesting CM to find out transportation to dialysis. Call into Alysia, sister/HCP and message left. [facility] called. Message left with Selene regarding pt missing dialysis and sister's request for daily RN visits. CM to follow for d/c needs.
[2021-09-21 18:32] VITALS: BP 194/91; PULSE 58; RESP 16; TEMP 36.1; O2SAT 98
--- NOTE | 2021-09-21 18:32 | MHC.CM.ED ---
CM left another message with Alysia, HCP/sister requesting return call. Spoke with patient with monorail hooker regarding transportation to and from dialysis. Per pt, he goes by ambulance and they call him first. Pt states they called today and he told them not to come. Explained that it is very important that he goes to dialysis on Tuesday. Spoke with Dr. Isaac. Considering that pt is a poor historian, Dr. Isaac would like family to be notified of importance of pt attending dialysis on Tuesday. CM will continue to reach out to Alysia.
--- NOTE | 2021-09-21 20:32 | MHC.CM.ED ---
Addendum entered by Maryam Pacheco 09/21/21 21:27: CM spoke directly with [facility] on the telephone. Paper med nec completed by manager intensive care unit. Original Note: CM spent 45 minutes with [facility] transportation, attempting to arrange transportation home. They called 15 local transports with no results. They called [employer], which was unable to provide transportation home tonight. Per [facility], they will file a grievance with [facility], as they could not provide transporatation. Per [facility], they are not contracted with [facility]. Evelyn Aguilar aware. [facility] called by this CM and explained situation, and twice told dispatch that pt had [facility] insurance. [facility] willing to provide transportation home. Stated it will be several hours. Pt agreeable. CM contacted Pt sister/HCP Alysia ([phone]), who states she is at pt apartment and will wait for him. CM reiterated with Alysia and pt via guide changer that it is very important that pt attends dialysis on Tuesday. Both pt and sister tell CM that he will go to dialysis on Tuesday. MARCIAL Mcdonnell and MARCIAL Squires aware. CM to follow for d/c needs.
[2021-09-21 22:00] VITALS: BP 184/70; PULSE 62; RESP 16; TEMP 36.1; O2SAT 96
--- NOTE | 2021-09-22 10:26 | MHC.CM.ED ---
Received return telephone call from Selene at [facility]. Patient receives FLAT SURFACER hours from [facility]. Patient's family requested more services in patient's home. Selene will reach out to medicare specialist, so they can reach out to patient and family for any additional services needed.
== END 2021-09-21 23:04 | disposition home or self-care (01) ==
PROVIDERS: Emergency Provider Emergency Medicine; PCP Internal Medicine Geriatric Medicine
DX: E11.22 Type 2 diabetes mellitus with diabetic chronic kidney disease (principal); I13.2 Hypertensive heart and chronic kidney disease with heart failure and with stage 5 chronic kidney disease, or end stage renal disease; I50.9 Heart failure, unspecified; N18.6 End stage renal disease; I48.0 Paroxysmal atrial fibrillation; Z99.2 Dependence on renal dialysis; Z79.01 Long term (current) use of anticoagulants; Z79.82 Long term (current) use of aspirin; Z79.4 Long term (current) use of insulin
CPT/HCPCS: 36415; 71046; 80048; 85025; 93005; 99283; 99284

== ENCOUNTER 2021-09-25 17:57 | Emergency (ER) | payer MEDICARE, SELFPAY ==
--- NOTE | ~2021-09-25 | XR_ITS ---
EXAMINATION: XR CHEST CLINICAL INFORMATION: Question fluid overload COMPARISON: 09/21/2021 TECHNIQUE: Frontal view of the chest was obtained. FINDINGS: Left chest wall central venous catheter terminates near the cavoatrial junction. Cardiac leads overlie the chest. The lungs are well expanded. There is no focal consolidation, edema, or effusion. No pneumothorax. The cardiomediastinal silhouette is within normal limits. No acute osseous abnormality. Elevated positioning of both humeral heads in relation to the glenoid fossa, suggestive of chronic rotator cuff disease. XR/XR chest 1V IMPRESSION: No acute pulmonary finding. No edema.
[2021-09-25 18:26] VITALS: BP 139/68; PULSE 60; RESP 18; TEMP 36.8; O2SAT 96; BMI 31.8
[2021-09-25 20:31] VITALS: BP 183/89; PULSE 60; RESP 16; TEMP 37.1; O2SAT 100
--- NOTE | 2021-09-25 20:48 | PC.NURSE ---
PT's nephew informed this nurse that PT was supposed to receive dialysis today but missed appointment. PT stated that he also missed Tuesday's appointment for dialysis.
[2021-09-25 21:37] VITALS: BP 183/87; PULSE 59; RESP 16; O2SAT 100
--- NOTE | 2021-09-25 21:50 | ED.GENADULT ---
HPI - General Adult General Chief complaint: General Medical Stated complaint: fell/leg pain/needs dialysis Time Seen by Provider: 09/25/21 21:37 Source: patient Mode of arrival: ambulatory Limitations: language barrier History of Present Illness HPI narrative: patient with history of end-stage renal disease diabetes 1 dialysis for last 6 months noncompliant last week he did not go and this week he went 4 days ago and missed today also had a mechanical fall landed on his right side no dizziness no chest pain no syncope. Patient does have chronic cough for last 2 weeks. No shortness of breath no leg swelling patient does urinate and is on [employer] Home Medications Medication Instructions Recorded Confirmed amiodarone 200 mg tablet 200 mg PO QAM 07/01/20 08/07/20 apixaban 2.5 mg tablet 2.5 mg PO BID 07/01/20 08/07/20 aspirin 81 mg tablet,delayed 81 mg PO DAILY 07/01/20 08/07/20 release bumetanide 1 mg tablet 1 mg PO BID 07/01/20 08/07/20 carvedilol 3.125 mg tablet 3.125 mg PO BID 07/01/20 08/07/20 cholecalciferol (vitamin D3) 50 50 mcg PO DAILY 07/01/20 08/07/20 mcg (2,000 unit) tablet fluoxetine 20 mg capsule 20 mg PO QAM 07/01/20 08/07/20 Previous Rx's Medication Instructions Recorded insulin aspart U-100 100 unit/mL 150 unit (1.5 mL) SUBCUT QPM #3 ml 07/08/20 (3 mL) subcutaneous pen (Novolog Flexpen U-100 Insulin aspart) insulin glargine 100 unit/mL (3 30 unit (0.3 mL) SUBCUT QAM #3 ml 07/08/20 mL) subcutaneous pen (Lantus Solostar U-100 Insulin) oxycodone 5 mg tablet 5 mg PO Q4H PRN #14 tab 11/10/20 atorvastatin 80 mg tablet 80 mg PO BEDTIME #90 tab 07/13/21 amoxicillin 875 mg-potassium 1 tab PO BID #20 tab 09/26/21 clavulanate 125 mg tablet Allergies Allergy/AdvReac Type Severity Reaction Status Date / Time No Known Allergies Allergy Verified 11/10/20 04:50 Review of Systems Review of Systems: Yes all other systems are reviewed and are negative [facility] Past Medical History Medical History Atherosclerotic cardiovascular disease Chronic heart failure with preserved ejection fraction Chronic kidney disease, unspecified ESRD (end stage renal disease) on dialysis Essential hypertension PAF (paroxysmal atrial fibrillation) Type 2 diabetes mellitus with unspecified complications Surgical History History of cardiac catheterization (~07/18/20) History of colon resection Family History Family History Father Esophageal cancer Mother Diabetes Hypertension Social History Social History Alcohol intake: current Alcohol intake frequency: a few times a month Patient Tobacco Use Status: Never used Tobacco Advance Directives: No Advance Directives Information Provided: No Physical Exam ED Vital Signs: Vital Signs - 24 hr 09/25/21 18:26 09/25/21 20:31 09/25/21 21:37 Temperature 98.2 F 98.8 F Pulse Rate 60 60 59 Respiratory Rate 18 16 16 Blood Pressure 139/68 183/89 H 183/87 H Pulse Oximetry 96 100 100 09/25/21 22:00 09/25/21 22:54 09/25/21 23:42 Temperature 97.8 F 98.2 F Pulse Rate 59 57 60 Respiratory Rate 16 18 18 Blood Pressure 181/82 H 190/89 H 180/86 H Pulse Oximetry 95 95 95 09/26/21 00:39 09/26/21 01:40 Temperature 98.1 F Pulse Rate 65 75 Respiratory Rate 20 20 Blood Pressure 190/89 H 193/89 H Pulse Oximetry 95 94 BMI result Body Mass Index 31.8 Appearance: Alert. Oriented X3. No acute distress. Eyes: +pallor ENT: Pharynx normal. Oral Mucosa moist Neck: Normal inspection. Neck supple. CVS: Normal heart rate and rhythm. Pulses normal. Respiratory: No respiratory distress. Equal air entry bilateral, no wheezing/rales/rhonchi Alicia catheter in place on left side Abdomen: Soft and nontender. Bowel sounds are present, no mass palpable, no CVA tenderness Skin: Skin warm and dry. Normal skin color. Normal skin turgor. Extremities: No lower extremity edema. No calf tenderness soft tissue tenderness right gluteus Neuro: Oriented X 3. No motor deficit. Medical Decision Making MDM Narrative Medical decision making narrative: patient end-stage renal disease on dialysis missed dialysis at a mechanical fall no signs of injury patient ambulatory in the ER labs are stable chest x-ray negative for infiltrate or fluid overload. 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 Result diagrams: 09/25/21 22:15 09/25/21 22:15 Labs: Lab Results 09/25/21 09/25/21 09/25/21 Range/Units 22:15 22:15 23:41 WBC 8.8 (4.8-10.8) X10*3/uL RBC 3.40 L (4.60-5.80) X10*6/uL Hgb 10.0 L (14.0-18.0) g/dl Hct 29.5 L (42.0-52.0) % MCV 86.8 (80.0-98.0) fL MCH 29.4 (27.0-33.0) pg MCHC 33.9 (31.0-36.0) g/dl RDW 14.1 (11.0-16.0) % Plt Count 192 (160-400) X10*3/uL MPV 8.9 L (9.4-12.4) fL Immature Gran % (Auto) 0.2 (0.0-0.4) % Neut % (Auto) 61.5 (45-73) % Lymph % (Auto) 26.4 (20-40) % [place] % (Auto) 10.7 (2-11) % Eos % (Auto) 1.0 (0-4) % Baso % (Auto) 0.2 (0-2) % Lymph # (Auto) 2.3 (1.2-4.9) X10*3/uL [place] # (Auto) 1.0 (0.1-1.2) X10*3/uL Eos # (Auto) 0.1 (0.0-0.4) X10*3/uL Baso # (Auto) 0.0 (0.0-0.2) X10*3/uL Abs Immat Gran (auto) 0.02 (0.00-0.03) X10*3/uL Absolute Neuts (auto) 5.4 (2.0-8.3) x10*3/uL Absolute Nucleated RBC 0.000 (0.0-0.012) X10*3/uL Nucleated RBC % (auto) 0.0 (0.0-0.2) /100WBC Sodium 131 L (135-145) mmol/L Potassium 4.8 (3.3-5.1) mmol/L Chloride 95 L (96-108) mmol/L Carbon Dioxide 24 (22-29) mmol/L Anion Gap 17 (12-20) BUN 32 H (9-16) mg/dL Creatinine 3.88 H (0.5-1.4) mg/dL Estim Creat Clear Calc 17.2 Estimated GFR 16 Random Glucose 214 H D (60-115) mg/dL Calcium 9.1 (8.4-10.2) mg/dL Magnesium 1.9 (1.6-2.6) mg/dL Total Bilirubin 0.5 (0.0-1.0) mg/dL AST 47 H (5-37) U/L ALT 69 H (0-40) U/L Alkaline Phosphatase 84 (39-117) U/L Total Protein 7.7 (6.5-8.0) g/dL Albumin 3.9 (3.5-5.0) g/dL COVID-19 (REJI) Negative (Negative) COVID-19 Clin Com See Note ECG Data Attestation: I personally reviewed and interpreted this ECG as follows: Interpretation: sinus bradycardia with first-degree AV block left axis deviation heart rate 58 beats per minute LVH no acute ischemic changes Discharge Plan Discharge Clinical Impression: Chronic kidney disease, unspecified, Hypertension, Bronchitis Patient Disposition: Home, Self-Care Instructions: Chronic Kidney Disease (ED), Chronic Bronchitis (ED), Chronic Hypertension (ED) Additional Instructions: take medication as prescribed have dialysis on time as scheduled Prescriptions: New amoxicillin-pot clavulanate 875-125 mg tablet 1 tab PO BID Qty: 20 0RF No Action atorvastatin 80 mg tablet 80 mg PO BEDTIME Qty: 90 2RF oxycodone 5 mg tablet 5 mg PO Q4H PRN (Reason: pain) Qty: 14 0RF Rx Instructions: Patient may request partial fill aspirin 81 mg tablet,delayed release (DR/EC) 81 mg PO DAILY 0RF amiodarone 200 mg tablet 200 mg PO QAM 0RF carvedilol 3.125 mg tablet 3.125 mg PO BID 0RF bumetanide 1 mg tablet 1 mg PO BID 0RF Eliquis 2.5 mg tablet 2.5 mg PO BID 0RF cholecalciferol (vitamin D3) 50 mcg (2,000 unit) tablet 50 mcg PO DAILY 0RF fluoxetine 20 mg capsule 20 mg PO QAM 0RF Lantus Solostar U-100 Insulin 100 unit/mL (3 mL) insulin pen 30 unit subcut QAM Qty: 3 0RF insulin aspart U-100 [Novolog Flexpen U-100 Insulin] 100 unit/mL (3 mL) insulin pen 150 unit subcut QPM Qty: 3 0RF Rx Instructions: sliding scale Interventions: ED Discharge Assessment Last Done: 09/26/21 03:02 Discharge Date/Time: 09/26/21 03:03
--- NOTE | 2021-09-25 21:52 | ECG_ITS ---
Test Reason : WEAKNESS Blood Pressure : / mmHG Vent. Rate : 058 BPM Atrial Rate : 058 BPM P-R Int : 220 ms QRS Dur : 128 ms QT Int : 474 ms P-R-T Axes : 046 -59 105 degrees QTc Int : 465 ms Sinus bradycardia with 1st degree A-V block Left axis deviation Left ventricular hypertrophy with QRS widening and repolarization abnormality ( Vadim product ) Abnormal ECG When compared with ECG of 21-SEP-2021 15:33, Right bundle branch block not present Referred By: Jasen Cedeno Electronically Signed By:WILFREDO THOMPSON
[2021-09-25 22:00] VITALS: BP 181/82; PULSE 59; RESP 16; TEMP 36.6; O2SAT 95
[2021-09-25 22:21] LABS: MANUAL DIFF FLAG NO
[2021-09-25 22:22] LABS: Basophils Percent Auto 0.2 % (0-2); Eosinophils Absolute Auto 0.1 X10*3/uL (0.0-0.4); Hematocrit 29.5 % (42.0-52.0); Imm Gran Abs Auto 0.02 X10*3/uL (0.00-0.03); Imm Gran Pct Auto 0.2 % (0.0-0.4); Lymphocytes Absolute Auto 2.3 X10*3/uL (1.2-4.9); Lymphocytes Percent Auto 26.4 % (20-40); Mean Corpuscular HGB Conc 33.9 g/dl (31.0-36.0); Mean Corpuscular Hemoglobin 29.4 pg (27.0-33.0); Mean Corpuscular Volume 86.8 fL (80.0-98.0); Mean Platelet Volume 8.9 fL (9.4-12.4); Monocytes Percent Auto 10.7 % (2-11); Neutrophils Absolute Auto 5.4 x10*3/uL (2.0-8.3); Neutrophils Percent Auto 61.5 % (45-73); Platelet Count 192 X10*3/uL (160-400); Red Cell Distribution Width 14.1 % (11.0-16.0); White Blood Count 8.8 X10*3/uL (4.8-10.8)
[2021-09-25 22:49] LABS: Alanine Aminotransferase 69 U/L (0-40); Albumin Level 3.9 g/dL (3.5-5.0); Alkaline Phosphatase 84 U/L (39-117); Anion Gap 17 (12-20); Aspartate Amino Transferase 47 U/L (5-37); Bilirubin Total 0.5 mg/dL (0.0-1.0); Blood Urea Nitrogen 32 mg/dL (9-16); Calcium 9.1 mg/dL (8.4-10.2); Carbon Dioxide 24 mmol/L (22-29); Chloride 95 mmol/L (96-108); Creatinine Clr Calc Pharmacy 17.2; Estimated Glomerular Filt Rate 16; Glucose Random 214 mg/dL (60-115); Magnesium 1.9 mg/dL (1.6-2.6); Potassium 4.8 mmol/L (3.3-5.1); Sodium 131 mmol/L (135-145); Total Protein 7.7 g/dL (6.5-8.0)
[2021-09-25 22:54] VITALS: BP 190/89; PULSE 57; RESP 18; O2SAT 95
[2021-09-25 23:42] VITALS: BP 180/86; PULSE 60; RESP 18; TEMP 36.8; O2SAT 95
[2021-09-25] MEDS: Amoxicillin/Potassium Clav 875 MG TABLET PO (23:49)
[2021-09-25] MEDS: lisinopriL 10 MG TABLET PO (23:49)
[2021-09-26 00:06] LABS: COVID-19 Test Negative (Negative)
[2021-09-26 00:39] VITALS: BP 190/89; PULSE 65; RESP 20; O2SAT 95
[2021-09-26 01:40] VITALS: BP 193/89; PULSE 75; RESP 20; TEMP 36.7; O2SAT 94
[2021-09-26] MEDS: cloNIDine HCL 0.1 MG TABLET PO (01:51)
== END 2021-09-26 03:03 | disposition home or self-care (01) ==
PROVIDERS: Emergency Provider Internal Medicine
DX: J40 Bronchitis, not specified as acute or chronic (principal); E11.22 Type 2 diabetes mellitus with diabetic chronic kidney disease; I13.2 Hypertensive heart and chronic kidney disease with heart failure and with stage 5 chronic kidney disease, or end stage renal disease; N18.6 End stage renal disease; I50.32 Chronic diastolic (congestive) heart failure; Z99.2 Dependence on renal dialysis; Z91.15 Patient's noncompliance with renal dialysis; Z20.822 Contact with and (suspected) exposure to COVID-19; Z91.81 History of falling; I48.0 Paroxysmal atrial fibrillation; Z79.82 Long term (current) use of aspirin; Z79.02 Long term (current) use of antithrombotics/antiplatelets; Z79.01 Long term (current) use of anticoagulants; Z79.4 Long term (current) use of insulin
CPT/HCPCS: 36415; 71045; 80053; 83735; 85025; 87635; 93005; 99283; 99284

== ENCOUNTER 2021-12-03 13:14 | Inpatient (IN) | payer MEDICARE, SELFPAY ==
--- NOTE | ~2021-12-03 | XR_ITS ---
EXAMINATION: XR CHEST CLINICAL INFORMATION: Difficulty breathing and weakness COMPARISON: 09/25/2021 TECHNIQUE: Frontal view of the chest was obtained. FINDINGS: Left-sided central venous catheter terminates near the cavoatrial junction. No change. Heart size borderline. There is slight distention of the pulmonary vessels which could reflect mild fluid overload. Mild prominent interstitial pattern could reflect edema. There is a ill-defined sclerotic pattern to the osseous structures possibly related to underlying renal disease. There is advanced degenerative change in both shoulders. XR/XR chest 1V IMPRESSION: Query mild edema. Follow-up advised.
--- NOTE | ~2021-12-03 | CT_ITS ---
EXAMINATION: CT HEAD WITHOUT CONTRAST CLINICAL INFORMATION: Generalized weakness and extremity weakness COMPARISON: 02/01/2021 TECHNIQUE: Contiguous axial imaging was performed from the skull base to vertex without intravenous administration of contrast. This CT examination was performed using dose optimization techniques as appropriate, variously including the following: *Automated exposure control *Adjustment of mA and/or kV according to patient size (this includes techniques or standardized protocols for targeted exams where dose is matched to indication/reason for exam; i.e. extremities or head) *Use of iterative reconstruction technique DLP: 760 mGy-cm FINDINGS: There is prominence to the sulci and ventricles consistent with involutional change. There is an old left lacune with ipsilateral ventricular distention. This is chronic. Bilateral basal ganglia calcifications noted. No evidence for new mass or hemorrhage or extra-axial collection. There are punctate calcifications within the scalp unchanged. Calvarium is intact. Note is made of moderate mucoperiosteal thickening in the maxillary sinuses right greater than left. CT/CT head/brain wo con IMPRESSION: No acute intracranial pathology.
[2021-12-03 13:21] VITALS: BP 150/80; PULSE 66; O2SAT 90
--- NOTE | 2021-12-03 13:27 | ECG_ITS ---
Test Reason : weakness Blood Pressure : / mmHG Vent. Rate : 062 BPM Atrial Rate : 062 BPM P-R Int : 238 ms QRS Dur : 150 ms QT Int : 526 ms P-R-T Axes : 051 -79 035 degrees QTc Int : 533 ms Sinus rhythm with 1st degree A-V block Right bundle branch block Left anterior fascicular block Bifascicular block Abnormal ECG When compared with ECG of 25-SEP-2021 22:22, (RBBB and left anterior fascicular block) is now Present Referred By: Nunu Soriano Electronically Signed By:Wenceslao Segura
[2021-12-03 13:32] VITALS: BP 158/76; PULSE 64; RESP 16; TEMP 36.8; BMI 25.0
[2021-12-03 14:14] LABS: MANUAL DIFF FLAG NO
[2021-12-03 14:19] LABS: Basophils Percent Auto 0.2 % (0-2); Eosinophils Absolute Auto 0.1 X10*3/uL (0.0-0.4); Eosinophils Percent Auto 0.3 % (0-4); Hematocrit 28.8 % (42.0-52.0); Hemoglobin 9.4 g/dl (14.0-18.0); Imm Gran Abs Auto 0.09 X10*3/uL (0.00-0.03); Imm Gran Pct Auto 0.6 % (0.0-0.4); Lymphocytes Absolute Auto 2.7 X10*3/uL (1.2-4.9); Lymphocytes Percent Auto 17.2 % (20-40); Mean Corpuscular HGB Conc 32.6 g/dl (31.0-36.0); Mean Corpuscular Hemoglobin 29.5 pg (27.0-33.0); Mean Corpuscular Volume 90.3 fL (80.0-98.0); Mean Platelet Volume 8.7 fL (9.4-12.4); Monocytes Absolute Auto 1.1 X10*3/uL (0.1-1.2); Monocytes Percent Auto 6.8 % (2-11); Neutrophils Absolute Auto 11.8 x10*3/uL (2.0-8.3); Neutrophils Percent Auto 74.9 % (45-73); Platelet Count 226 X10*3/uL (160-400); Red Blood Count 3.19 X10*6/uL (4.60-5.80); Red Cell Distribution Width 16.2 % (11.0-16.0); White Blood Count 15.8 X10*3/uL (4.8-10.8)
[2021-12-03 14:22] LABS: INTERNATIONAL NORM RATIO 1.6 (0.9-1.1); Prothrombin Time 18.2 SEC (9.9-13.0)
[2021-12-03 14:31] LABS: COVID-19 Test Negative (Negative); IDNOW Serial# 16C4AD1C
[2021-12-03 14:36] LABS: Alanine Aminotransferase 21 U/L (0-40); Albumin Level 3.7 g/dL (3.5-5.0); Alkaline Phosphatase 83 U/L (39-117); Anion Gap 16 (12-20); Aspartate Amino Transferase 14 U/L (5-37); Bilirubin Total 0.8 mg/dL (0.0-1.0); Blood Urea Nitrogen 28 mg/dL (9-16); Calcium 8.9 mg/dL (8.4-10.2); Carbon Dioxide 25 mmol/L (22-29); Chloride 93 mmol/L (96-108); Creatinine Clr Calc Pharmacy 11.6; Estimated Glomerular Filt Rate 11; Glucose Random 166 mg/dL (60-115); Magnesium 1.7 mg/dL (1.6-2.6); Potassium 4.5 mmol/L (3.3-5.1); Sodium 129 mmol/L (135-145); Total Protein 7.3 g/dL (6.5-8.0)
--- NOTE | 2021-12-03 14:36 | ED.WEAKNESS ---
HPI - Weakness General Chief complaint: Weakness Stated complaint: WEAKNESS Time Seen by Provider: 12/03/21 13:26 Source: patient and EMS Mode of arrival: EMS Limitations: language barrier (Lao-speaking) History of Present Illness HPI Narrative: 66-year-old male with a past medical history of CKD currently on hemodialysis receives it Tuesday//Saturdays last received on Tuesday refused to receive his dialysis today with they arrived, diabetes type 2, hypertension, CHF with preserved ejection fraction, atrial fibrillation and arthrosclerotic cardiovascular disease presenting to the ED via EMS with complaints of general weakness and not feeling well since yesterday worse today. Reports that he does make some urine. Denies any fevers, chills, dizziness, headaches, changes in vision, neck pain/stiffness, trouble swallowing or breathing, jaw pain, paresthesias, chest pain or shortness of breath, dyspnea on exertion, orthopnea, palpitations, nausea/vomiting/diarrhea constipation, abdominal pain, rashes, back pain, focal weakness, recent travel or sick contacts that he is aware of, lower extremity edema or calf tenderness or any other symptoms complaints or concerns at this time. MD Complaint: generalized weakness Onset (ago): day(s) (Since yesterday morning) Duration: constant Location: generalized, LLE and RLE Migration: none Severity: mild Relieving factors: none Exacerbating factors: none Associated symptoms: denies other symptoms Related Data Home Medications Medication Instructions Recorded Confirmed amiodarone 200 mg tablet 200 mg PO QAM 07/01/20 12/03/21 aspirin 81 mg tablet,delayed 81 mg PO DAILY 07/01/20 12/03/21 release bumetanide 1 mg tablet 1 mg PO BID 07/01/20 12/03/21 carvedilol 3.125 mg tablet 3.125 mg PO BID 07/01/20 12/03/21 cholecalciferol (vitamin D3) 50 50 mcg PO DAILY 07/01/20 12/03/21 mcg (2,000 unit) tablet fluoxetine 20 mg capsule 20 mg PO QAM 07/01/20 12/03/21 apixaban 5 mg tablet (Eliquis) 1 tab PO BID 12/03/21 12/03/21 insulin aspart U-100 100 unit/mL See Rx Instructions .ROUTE .COMPLEX 05/26/22 05/26/22 (3 mL) subcutaneous pen (Novolog Flexpen U-100 Insulin aspart) insulin glargine 100 unit/mL (3 25 unit SUBCUT BEDTIME 12/03/21 12/03/21 mL) subcutaneous pen (Lantus Solostar U-100 Insulin) Previous Rx's Medication Instructions Recorded atorvastatin 80 mg tablet 80 mg PO BEDTIME #90 tab 07/13/21 Allergies Allergy/AdvReac Type Severity Reaction Status Date / Time No Known Allergies Allergy Verified 11/10/20 04:50 Review of Systems Review of Systems: Constitutional : No Fever, No Chills, No Night Sweats, No Fatigue, No Malaise ENT/Mouth : No Ear Pain, No Nasal Congestion, No Sinus Pain, No sore throat, No Rhinorrhea Eyes: No Eye Pain, No Swelling, No Redness, No Foreign Body, No Discharge, No Vision Changes Cardiovascular : No Chest Pain, No SOB, No Dyspnea on Exertion, No Orthopnea, No Palpitations Respiratory : No Cough, No Sputum, No Wheezing, No Dyspnea Gastrointestinal : No Nausea, No Vomiting, No Diarrhea, No Constipation, No abdominal Pain, No Hematochezia, No Melena Genitourinary : No Dysuria, No Urinary Frequency, No Urinary Incontinence, No Urgency, No Flank Pain Musculoskeletal : No joint pain, No Myalgias Skin : No lacerations Neuro : + general weakness, No Focal weakness, No Numbness, No Paresthesias, No Loss of Consciousness, No Dizziness, No Headache Yes all other systems are reviewed and are negative [facility] Past Medical History Attestation statement: The following information was validated with the patient. Medical History Atherosclerotic cardiovascular disease Chronic heart failure with preserved ejection fraction Chronic kidney disease, unspecified ESRD (end stage renal disease) on dialysis Essential hypertension PAF (paroxysmal atrial fibrillation) Type 2 diabetes mellitus with unspecified complications Surgical History History of cardiac catheterization (~07/18/20) History of colon resection Family History Family History Father Esophageal cancer Mother Diabetes Hypertension Social History Social History Alcohol intake: former Patient Tobacco Use Status: Never used Tobacco Use of substances other than those prescribed or required for medical reasons: No Advance Directives: Yes Advance Directives Information Provided: No Advance Directives on File: Yes Advance Directives Date on File: 09/21/21 Physical Exam Vital Signs: Vital Signs: Last Vital Signs Temp 98.1 F 12/03/21 14:45 Pulse 52 12/03/21 16:38 Resp 16 12/03/21 16:38 BP 138/64 12/03/21 16:38 Pulse Ox 94 12/03/21 16:38 BMI result Body Mass Index 25.0 Vital signs have been reviewed as normal and appeared to be correct. Blood pressure normal. Heart rate normal. Respiration rate normal. Temperature normal. Oxygen saturation normal. Appearance: Alert. Oriented X3. No acute distress. Head: Normal external exam. Normocephalic. Atraumatic. Able to rotate head bilaterally. Eyes: PERRLA. EOMI. No nystagmus noted. Conjunctiva and sclera normal. Eyelids normal. Corneal reflex normal. ENT: EAC normal. TM's Normal. Hearing normal. Pharynx normal. Uvula midline. tongue midline. Moist mucous membranes. No trismus noted. No drooling noted. No muffled voice noted. No nystagmus noted. Neck: Normal inspection. Neck supple. FROM. No adenopathy. Trachea midline. Thyroid Normal. No meningeal signs. No neck mass noted. CVS: Normal heart rate and rhythm. Heart sound normal. No murmurs noted. Pulses normal throughout. Respiratory: No respiratory distress. Painless inspiration. Breath sounds normal. No wheezes/rales/rhonchi noted. Chest nontender. No accessory muscle usage noted or decreased air movement noted. Abdomen: Soft and nontender. Bowel sounds normal in all 4 quadrants. No distention noted. No organomegaly noted. No visible injury noted. Back: No CVA tenderness. Full range of motion noted. Skin: Skin warm and dry. Normal skin color. Normal skin turgor. No rashes/lesions/lacerations noted. Extremities: No lower extremity edema. Extremities exhibit normal range of motion. Extremities nontender. Able to shrug shoulders bilaterally and keep up against resistance. Neuro: Oriented X 3. No motor deficit. No sensory deficit. Reflexes normal. Moving all extremities. No focal motor deficits. Cranial nerves II-XI intact bilaterally. Facial strength normal. Normal cognition. Speech normal. Gait normal. Strength 5/5 throughout. No pronator drift. No tremor noted. No fasciculations noted. No rigidity noted. Muscle tone normal throughout. No asterixis noted. [id number] test normal. Heel to navarrete test normal. Tandem gait normal. Does not sway with eyes open. Romberg test negative. Rapid alternating movement upper extremity normal. Rapid alternating movement lower extremity normal. Hand drop from overhead Misses face. NIHSS score 0. Course Course Course Narrative: 13:30pm - 66-year-old male with a past medical history of CKD currently on hemodialysis receives it Tuesday//Saturdays last received on Tuesday refused to receive his dialysis today with they arrived, diabetes type 2, hypertension, CHF with preserved ejection fraction, atrial fibrillation and arthrosclerotic cardiovascular disease presenting to the ED via EMS with complaints of general weakness and not feeling well since yesterday worse today. Reports that he does make some urine. Plan: Labs, EKG, chest x-ray, UA, COVID swab and re-evaluate. Reevaluation(s) Reevaluation #1: - labs reviewed patient with an elevated white blood cell count at 15,000. - patient with mild baseline anemia similar compared to prior. - sodium is 129. - BUN/creatinine 28/5.27 this is worse when compared to prior. - random glucose 166. - CT scan of brain within normal limits no acute processes noted. - chest x-ray revealed mild edema ? fluid overload otherwise no other acute processes were noted. - I consulted with Dr. Montero from Nephrology and he recommended adding up BNP and obtaining a urine along with blood cultures and lactic acid not from the patient's PermCath therefore collecting at this time. Will re-evaluate and plan will be to admit for hemodialysis tomorrow. Patient understands agrees with this plan. Time: 14:49 Reevaluation #2: - patient will be admitted for general weakness requiring hemodialysis tomorrow non emergent due to patient's BNP is only 547. Repeat troponin is 22. Urine also reveals +2 protein and blood which is similar when compared to prior. No evidence of UTI. Therefore patient will be admitted for hemodialysis due to patient will not be able to have hemodialysis at home until Tuesday. Patient understands agrees with this plan. His sisters were updated over the phone. And Dr. Adrian accepted admission at this time. Time: 17:02 [facility] Medical Records Attestation: I reviewed the patient's medical records. Lab Data Attestation: I reviewed the patient's lab results. Result diagrams: 12/03/21 14:05 12/03/21 14:05 Labs: Lab Results 12/03/21 12/03/21 12/03/21 Range/Units 14:05 14:05 14:05 WBC 15.8 H (4.8-10.8) X10*3/uL RBC 3.19 L (4.60-5.80) X10*6/uL Hgb 9.4 L (14.0-18.0) g/dl Hct 28.8 L (42.0-52.0) % MCV 90.3 (80.0-98.0) fL MCH 29.5 (27.0-33.0) pg MCHC 32.6 (31.0-36.0) g/dl RDW 16.2 H (11.0-16.0) % Plt Count 226 (160-400) X10*3/uL MPV 8.7 L (9.4-12.4) fL Immature Gran % (Auto) 0.6 H (0.0-0.4) % Neut % (Auto) 74.9 H (45-73) % Lymph % (Auto) 17.2 L (20-40) % Pershing % (Auto) 6.8 (2-11) % Eos % (Auto) 0.3 (0-4) % Baso % (Auto) 0.2 (0-2) % Lymph # (Auto) 2.7 (1.2-4.9) X10*3/uL Pershing # (Auto) 1.1 (0.1-1.2) X10*3/uL Eos # (Auto) 0.1 (0.0-0.4) X10*3/uL Baso # (Auto) 0.0 (0.0-0.2) X10*3/uL Abs Immat Gran (auto) 0.09 H (0.00-0.03) X10*3/uL Absolute Neuts (auto) 11.8 H (2.0-8.3) x10*3/uL Absolute Nucleated RBC 0.000 (0.0-0.012) X10*3/uL Nucleated RBC % (auto) 0.0 (0.0-0.2) /100WBC Hold Purple Top PT (9.9-13.0) SEC INR (0.9-1.1) Sodium 129 L (135-145) mmol/L Potassium 4.5 (3.3-5.1) mmol/L Chloride 93 L (96-108) mmol/L Carbon Dioxide 25 (22-29) mmol/L Anion Gap 16 (12-20) BUN 28 H (9-16) mg/dL Creatinine 5.27 H* (0.5-1.4) mg/dL Estim Creat Clear Calc 11.6 Estimated GFR 11 Random Glucose 166 H (60-115) mg/dL Lactic Acid (0.5-2.0) mmol/L Calcium 8.9 (8.4-10.2) mg/dL Magnesium 1.7 (1.6-2.6) mg/dL Total Bilirubin 0.8 (0.0-1.0) mg/dL AST 14 D (5-37) U/L ALT 21 (0-40) U/L Alkaline Phosphatase 83 (39-117) U/L Troponin I High Sens (<3.5-35.0) ng/L B-Natriuretic Peptide (<100) pg/mL Total Protein 7.3 (6.5-8.0) g/dL Albumin 3.7 (3.5-5.0) g/dL Urine Color Urine Appearance Urine pH (5.0-8.0) Ur Specific [place] (1.005-1.025) Urine Protein (NEG-TRACE) MG/DL Urine Glucose (UA) (NEG) MG/DL Urine Ketones (NEG) MG/DL Urine Blood (NEG) Urine Nitrite (NEG) Ur Leukocyte Esterase (NEG) Urine RBC (0) /HPF Urine WBC (0-4) /HPF Ur Squamous Epith Cells /LPF Urine Bacteria /LPF COVID-19 (REJI) Negative (Negative) COVID-19 Clin Com See Note 12/03/21 12/03/21 12/03/21 Range/Units 14:05 14:05 14:05 WBC (4.8-10.8) X10*3/uL RBC (4.60-5.80) X10*6/uL Hgb (14.0-18.0) g/dl Hct (42.0-52.0) % MCV (80.0-98.0) fL MCH (27.0-33.0) pg MCHC (31.0-36.0) g/dl RDW (11.0-16.0) % Plt Count (160-400) X10*3/uL MPV (9.4-12.4) fL Immature Gran % (Auto) (0.0-0.4) % Neut % (Auto) (45-73) % Lymph % (Auto) (20-40) % Pershing % (Auto) (2-11) % Eos % (Auto) (0-4) % Baso % (Auto) (0-2) % Lymph # (Auto) (1.2-4.9) X10*3/uL Pershing # (Auto) (0.1-1.2) X10*3/uL Eos # (Auto) (0.0-0.4) X10*3/uL Baso # (Auto) (0.0-0.2) X10*3/uL Abs Immat Gran (auto) (0.00-0.03) X10*3/uL Absolute Neuts (auto) (2.0-8.3) x10*3/uL Absolute Nucleated RBC (0.0-0.012) X10*3/uL Nucleated RBC % (auto) (0.0-0.2) /100WBC Hold Purple Top SEE NOTE PT 18.2 H (9.9-13.0) SEC INR 1.6 H (0.9-1.1) Sodium (135-145) mmol/L Potassium (3.3-5.1) mmol/L Chloride (96-108) mmol/L Carbon Dioxide (22-29) mmol/L Anion Gap (12-20) BUN (9-16) mg/dL Creatinine (0.5-1.4) mg/dL Estim Creat Clear Calc Estimated GFR Random Glucose (60-115) mg/dL Lactic Acid (0.5-2.0) mmol/L Calcium (8.4-10.2) mg/dL Magnesium (1.6-2.6) mg/dL Total Bilirubin (0.0-1.0) mg/dL AST (5-37) U/L ALT (0-40) U/L Alkaline Phosphatase (39-117) U/L Troponin I High Sens 23.0 (<3.5-35.0) ng/L B-Natriuretic Peptide 547 H (<100) pg/mL Total Protein (6.5-8.0) g/dL Albumin (3.5-5.0) g/dL Urine Color Urine Appearance Urine pH (5.0-8.0) Ur Specific [place] (1.005-1.025) Urine Protein (NEG-TRACE) MG/DL Urine Glucose (UA) (NEG) MG/DL Urine Ketones (NEG) MG/DL Urine Blood (NEG) Urine Nitrite (NEG) Ur Leukocyte Esterase (NEG) Urine RBC (0) /HPF Urine WBC (0-4) /HPF Ur Squamous Epith Cells /LPF Urine Bacteria /LPF COVID-19 (REJI) (Negative) COVID-19 Clin Com 12/03/21 12/03/21 12/03/21 Range/Units 15:34 16:28 16:28 WBC (4.8-10.8) X10*3/uL RBC (4.60-5.80) X10*6/uL Hgb (14.0-18.0) g/dl Hct (42.0-52.0) % MCV (80.0-98.0) fL MCH (27.0-33.0) pg MCHC (31.0-36.0) g/dl RDW (11.0-16.0) % Plt Count (160-400) X10*3/uL MPV (9.4-12.4) fL Immature Gran % (Auto) (0.0-0.4) % Neut % (Auto) (45-73) % Lymph % (Auto) (20-40) % Pershing % (Auto) (2-11) % Eos % (Auto) (0-4) % Baso % (Auto) (0-2) % Lymph # (Auto) (1.2-4.9) X10*3/uL Pershing # (Auto) (0.1-1.2) X10*3/uL Eos # (Auto) (0.0-0.4) X10*3/uL Baso # (Auto) (0.0-0.2) X10*3/uL Abs Immat Gran (auto) (0.00-0.03) X10*3/uL Absolute Neuts (auto) (2.0-8.3) x10*3/uL Absolute Nucleated RBC (0.0-0.012) X10*3/uL Nucleated RBC % (auto) (0.0-0.2) /100WBC Hold Purple Top PT (9.9-13.0) SEC INR (0.9-1.1) Sodium (135-145) mmol/L Potassium (3.3-5.1) mmol/L Chloride (96-108) mmol/L Carbon Dioxide (22-29) mmol/L Anion Gap (12-20) BUN (9-16) mg/dL Creatinine (0.5-1.4) mg/dL Estim Creat Clear Calc Estimated GFR Random Glucose (60-115) mg/dL Lactic Acid 1.3 (0.5-2.0) mmol/L Calcium (8.4-10.2) mg/dL Magnesium (1.6-2.6) mg/dL Total Bilirubin (0.0-1.0) mg/dL AST (5-37) U/L ALT (0-40) U/L Alkaline Phosphatase (39-117) U/L Troponin I High Sens 22.0 (<3.5-35.0) ng/L B-Natriuretic Peptide (<100) pg/mL Total Protein (6.5-8.0) g/dL Albumin (3.5-5.0) g/dL Urine Color YELLOW Urine Appearance CLEAR Urine pH 6.0 (5.0-8.0) Ur Specific [place] <= 1.005 (1.005-1.025) Urine Protein 2+ H (NEG-TRACE) MG/DL Urine Glucose (UA) NEG (NEG) MG/DL Urine Ketones NEG (NEG) MG/DL Urine Blood 3+ H (NEG) Urine Nitrite NEG (NEG) Ur Leukocyte Esterase NEG (NEG) Urine RBC TNTC H (0) /HPF Urine WBC 1-4 (0-4) /HPF Ur Squamous Epith Cells TRACE /LPF Urine Bacteria 1+ /LPF COVID-19 (REJI) (Negative) COVID-19 Clin Com Imaging Data Chest x-ray: Attestation: I personally reviewed and interpreted this imaging study as follows: Radiologist's impression: FINDINGS: Left-sided central venous catheter terminates near the cavoatrial junction. No change. Heart size borderline. There is slight distention of the pulmonary vessels which could reflect mild fluid overload. Mild prominent interstitial pattern could reflect edema. There is a ill-defined sclerotic pattern to the osseous structures possibly related to underlying renal disease. There is advanced degenerative change in both shoulders. XR/XR chest 1V IMPRESSION: Query mild edema. Follow-up advised. CT scan of brain without contrast: Attestation: I personally reviewed and interpreted this imaging study as follows: Radiologist's impression: FINDINGS: There is prominence to the sulci and ventricles consistent with involutional change. There is an old left lacune with ipsilateral ventricular distention. This is chronic. Bilateral basal ganglia calcifications noted. No evidence for new mass or hemorrhage or extra-axial collection. There are punctate calcifications within the scalp unchanged. Calvarium is intact. Note is made of moderate mucoperiosteal thickening in the maxillary sinuses right greater than left. ? CT/CT head/brain wo con IMPRESSION: No acute intracranial pathology. ECG Data Attestation: I personally reviewed and interpreted this ECG as follows: ECG interpretation date: 12/03/21 ECG interpretation time: 13:46 Interpretation: Sinus rhythm with first-degree AV block with ventricular rate of 62 with right bundle-branch block and left anterior fascicular block with nonspecific ST abnormalities no acute ischemic change are noted. Patient has a new right bundle branch block otherwise similar compared to prior EKG. Critical Care Time Critical Care Time Critical Care Time: Yes Total Critical Care Time: 60 Attestation: I personally attest to this time spent taking care of the patient Discharge Plan Discharge Clinical Impression: Acute kidney injury superimposed on chronic kidney disease, Acute hyponatremia, Fluid overload Patient Disposition: Admitted As Inpatient
[2021-12-03 14:45] VITALS: BP 152/79; PULSE 55; RESP 16; TEMP 36.7; O2SAT 96
[2021-12-03 15:43] LABS: B Type Natriuretic Peptide 547 pg/mL (<100)
[2021-12-03 15:48] LABS: Lactic Acid 1.3 mmol/L (0.5-2.0)
--- NOTE | 2021-12-03 16:25 | PHA.MEDREC ---
Addendum entered by Jennifer Stark RPh 12/03/21 16:34: Also, patient states they take 25 units of Lantus now Original Note: Pharmacy Consult ? Medication Reconciliation Pharmacy has completed the medication reconciliation. Patient uses [facility]. Thanks Tremayne
[2021-12-03 16:36] LABS: Appearance Urine CLEAR; Color Urine YELLOW; Glucose Urine UA NEG (NEG); Leukocyte Esterase Urine NEG (NEG); Nitrite Urine NEG (NEG); Specific Gravity - Urine <= 1.005 (1.005-1.025); UACC Culture Trigger NO; Urine Blood 3+ (NEG); Urine Ketones NEG (NEG); Urine Protein 2+ MG/DL (NEG-TRACE)
--- NOTE | 2021-12-03 16:36 | P.HPHOSP_ITS ---
History of Present Illness Date of Service: 12/03/21 Chief Complaint: weakness 66-year-old male with a past medical history of CKD currently on hemodialysis TTS, last dialysis Tuesday (2 days ago), diabetes type 2, hypertension, CAD, CHF with preserved ejection fraction, and atrial fibrillation on Xarelto prese nting to the ED via EMS with complaints of general weakness and not feeling well since yesterday worse today.?He did not attend dialysis today and instead came to the ED because weakness, he also has been complaning of blood in urine as he makes some urine. BNP is 547, CXR no pulmonary edema, no sob, potassium is normal. Review of Systems Review of Systems: Gen: no fever Resp: no sob, no cough CV: no chest, no SANDERS, no leg edema GI: No n/v, no abd pain Neuro: No confusion [facility] Medical History Atherosclerotic cardiovascular disease Chronic heart failure with preserved ejection fraction Chronic kidney disease, unspecified ESRD (end stage renal disease) on dialysis Essential hypertension PAF (paroxysmal atrial fibrillation) Type 2 diabetes mellitus with unspecified complications Family History Father Esophageal cancer Mother Diabetes Hypertension Surgical History History of cardiac catheterization (~07/18/20) History of colon resection Social History Alcohol intake: former Patient Tobacco Use Status: Never used Tobacco Use of substances other than those prescribed or required for medical reasons: No Advance Directives: Yes Advance Directives Information Provided: No Advance Directives on File: Yes Advance Directives Date on File: 09/21/21 Meds Allergies Allergy/AdvReac Type Severity Reaction Status Date / Time No Known Allergies Allergy Verified 11/10/20 04:50 Active Medications: Current Medications Pharmacy Consult (Consult Rx Perform Med Rec) 1 each MISCELLANE ONCE PRN PRN Reason: Consult order Home Medications Medication Instructions Recorded Confirmed Last Taken Type amiodarone 200 mg tablet 200 mg PO QAM 07/01/20 12/03/21 12/03/21 History aspirin 81 mg tablet,delayed 81 mg PO DAILY 07/01/20 12/03/21 12/03/21 History release bumetanide 1 mg tablet 1 mg PO BID 07/01/20 12/03/21 12/03/21 History carvedilol 3.125 mg tablet 3.125 mg PO BID 07/01/20 12/03/21 12/03/21 History cholecalciferol (vitamin D3) 50 50 mcg PO DAILY 07/01/20 12/03/21 12/03/21 Histo ry mcg (2,000 unit) tablet fluoxetine 20 mg capsule 20 mg PO QAM 07/01/20 12/03/21 12/03/21 History apixaban 5 mg tablet (Eliquis) 1 tab PO BID 12/03/21 12/03/21 12/03/21 History insulin aspart U-100 100 unit/mL See Rx Instructions .ROUTE .COMPLEX 12/03/21 12/03/21 Unknown History (3 mL) subcutaneous pen (Novolog Flexpen U-100 Insulin aspart) insulin glargine 100 unit/mL (3 25 unit SUBCUT BEDTIME 12/03/21 12/03/21 12/02/21 History mL) subcutaneous pen (Lantus Solostar U-100 Insulin) Physical Exam Vital Signs and Narrative: Vital Signs: Last Vital Signs Temp 98.1 F 12/03/21 14:45 Pulse 55 12/03/21 14:45 Resp 16 12/03/21 14:45 BP 152/79 H 12/03/21 14:45 Pulse Ox 96 12/03/21 14:45 BMI result Body Mass Index 25.0 Const: Other: Constitutional: Alert, in no distress, Mental Status: Oriented to person, place and time. Eyes: Pupils are equal, round and reactive to light. Ear, Nose and Throat: Oropharynx clear, mucous membranes moist. Ears and nose without eformities. Respiratory: Clear to auscultation. No wheezing, rales or rhonchi. Cardiovascular: S1 S2 regular. No murmurs, rubs or gallops. Gastrointestinal: Abdomen soft, non-tender, non-distended. Normal bowel sounds.? Neurologic: Cranial nerves II-XII grossly intact. No focal neurological deficit s. Moves all extremities spontaneously.? Skin: No rashes or lesions.? Musculoskeletal: No cyanosis or clubbing. Psychiatric: Normal mood and affect? Results Labs CBC and Chem 7: 12/03/21 14:05 12/03/21 14:05 Labs: Laboratory Results - last 24 hr 12/03/21 12/03/21 12/03/21 14:05 14:05 14:05 MCV 90.3 MCH 29.5 MCHC 32.6 RDW 16.2 H Plt Count 226 MPV 8.7 L Immature Gran % (Auto) 0.6 H Neut % (Auto) 74.9 H Lymph % (Auto) 17.2 L [place]cl[place] % (Auto) 6.8 Eos % (Auto) 0.3 Baso % (Auto) 0.2 Lymph # (Auto) 2.7 [place]cl[place]an # (Auto) 1.1 Eos # (Auto) 0.1 Baso # (Auto) 0.0 Abs Immat Gran (auto) 0.09 H Absolute Neuts (auto) 11.8 H Absolute Nucleated RBC 0.000 Nucleated RBC % (auto) 0.0 Hold Purple Top PT INR Anion Gap 16 Creatinine 5.27 H* Estim Creat Clear Calc 11.6 Estimated GFR 11 Random Glucose 166 H Lactic Acid Calcium 8.9 Magnesium 1.7 Total Bilirubin 0.8 AST 14 D ALT 21 Alkaline Phosphatase 83 Troponin I High Sens B-Natriuretic Peptide Total Protein 7.3 Albumin 3.7 COVID-19 (REJI) Negative COVID-19 [employer] Com See Note 12/03/21 12/03/21 12/03/21 14:05 14:05 14:05 MCV MCH MCHC RDW Plt Count MPV Immature Gran % (Auto) Neut % (Auto) Lymph % (Auto) Mclennan % (Auto) Eos % (Auto) Baso % (Auto) Lymph # (Auto) [place]cl[place]an # (Auto) Eos # (Auto) Baso # (Auto) Abs Immat Gran (auto) Absolute Neuts (auto) Absolute Nucleated RBC Nucleated RBC % (auto) Hold Purple Top SEE NOTE PT 18.2 H INR 1.6 H Anion Gap Creatinine Estim Creat Clear Calc Estimated GFR Random Glucose Lactic Acid Calcium Magnesium Total Bilirubin AST ALT Alkaline Phosphatase Troponin I High Sens 23.0 B-Natriuretic Peptide 547 H Total Protein Albumin COVID-19 (REJI) COVID-[employer] Com 12/03/21 15:34 MCV MCH MCHC RDW Plt Count MPV Immature Gran % (Auto) Neut % (Auto) Lymph % (Auto) Mclennan % (Auto) Eos % (Auto) Baso % (Auto) Lymph # (Auto) [place]cl[place]an # (Auto) Eos # (Auto) Baso # (Auto) Abs Immat Gran (auto) Absolute Neuts (auto) Absolute Nucleated RBC Nucleated RBC % (auto) Hold Purple Top PT INR Anion Gap Creatinine Estim Creat Clear Calc Estimated GFR Random Glucose Lactic Acid 1.3 Calcium Magnesium Total Bilirubin AST ALT Alkaline Phosphatase Troponin I High Sens B-Natriuretic Peptide Total Protein Albumin COVID-19 (REJI) COVID-19 Clin Com Imaging Radiologist's Impressions: Impressions Chest X-Ray 12/03/21 13:47 IMPRESSION: Query mild edema. Follow-up advised. Head CT 12/03/21 13:51 IMPRESSION: No acute intracranial pathology. Assessment and Plan (1) Acute hyponatremia: Status: Acute (2) Fluid overload: Status: Acute (3) Type 2 diabetes mellitus with unspecified complications: Status: Acute (4) Essential hypertension: Status: Acute (5) Chronic kidney disease, unspecified: Status: Acute Plan 66-year-old male with a past medical history of CKD currently on hemodialysis TTS, last dialysis Tuesday (2 days ago), diabetes type 2, hypertension, CHF with preserved ejection fraction, atrial fibrillation and arthrosclerotic cardiovascular presenting to ED with gen weaknesss and missed dialysis, mild hyponatremia, and mild fluid overload 1/ Generalized weakness d/t needing dialysis to remove toxins 2/ESRD--will arrange for dialysis tomorrow 3/ Hyponatremia d/t fluid overload and should correct following dialysis 4/? hematuria, observe and if not improving then urology consult 5/Chronic heart failure with preserved EF, acute fluid overload from ESRD--should correct with dialysis and Bumex 6/AFIB, rate controlled. Continue Coreg, amiodarone, eliquis if truly no hematuria 7/HLS--Lipitor 8/Diabetes--SSI, Lantus DVT prophylaxis: Eliquis Admission to span at least 2 midnights for management of fluid overload, urgent need for dialysis Quality Stroke Does the patient have a stroke diagnosis?: No VTE Prior VTE?: No VTE Risk Level:: Medical - low VTE Device Contraindication: Treatment Not Indicated VTE Drug Contraindication: Treatment Not Indicated
[2021-12-03 16:38] VITALS: BP 138/64; PULSE 52; RESP 16; O2SAT 94
[2021-12-03 16:52] LABS: RBC Urine TNTC /HPF (0)
[2021-12-03 16:53] LABS: Bacteria Urine 1+ /LPF; Squamous Epithelial Cell Urine TRACE /LPF
[2021-12-03] MEDS: FLUoxetine HCl 20 MG CAPSULE PO (18:20)
[2021-12-03 18:21] VITALS: BP 157/78; PULSE 51; RESP 16
--- NOTE | 2021-12-03 18:47 | PC.NURSE ---
Pt asleep, NAD. Amiharmony held per Dr Adrian for bradycardia rate 51.
[2021-12-03 22:40] LABS: Glucose, Whole Blood 139 mg/dL (60-115)
[2021-12-03 23:10] VITALS: BP 171/75; PULSE 60; RESP 16; O2SAT 93
[2021-12-03] MEDS: Insulin Glargine,Hum.rec.anlog 100 UNIT/ML 10 ML VIAL 25 UNIT SUBCUT (23:11)
[2021-12-03] MEDS: carvediloL 3.125 MG TABLET PO (23:12)
[2021-12-03] MEDS: Atorvastatin Calcium 80 MG TABLET PO (23:12)
[2021-12-03] MEDS: Bumetanide 1 MG TABLET PO (23:12)
[2021-12-04 06:09] VITALS: BP 182/85; PULSE 57; RESP 18; TEMP 37; O2SAT 94
[2021-12-04 07:22] LABS: Anion Gap 14 (12-20); Blood Urea Nitrogen 34 mg/dL (9-16); Calcium 8.7 mg/dL (8.4-10.2); Carbon Dioxide 25 mmol/L (22-29); Chloride 96 mmol/L (96-108); Creatinine Clr Calc Pharmacy 10.7; Estimated Glomerular Filt Rate 10; Glucose Random 136 mg/dL (60-115); Potassium 3.9 mmol/L (3.3-5.1); Sodium 131 mmol/L (135-145)
--- NOTE | 2021-12-04 12:20 | P.PNIM_ITS ---
Subjective Subjective Date of Service: 12/04/21 Interval History: f/u on missing dialysis, weakness and now 1/2 psotive blood culture Interval history: no change, blood culture 1/2 gram positive cooci, getting dialysis Review of Systems no fever no sob Physical Exam Vital Signs: Vital Signs: Last Vital Signs Temp 98.6 F 12/04/21 06:09 Pulse 57 12/04/21 06:09 Resp 18 12/04/21 06:09 BP 182/85 H 12/04/21 06:09 Pulse Ox 94 12/04/21 06:09 BMI result Body Mass Index 25.0 Const: Other: General: AO X 3, no acute distress Resp: CTA bilateral CVS: S1,S2,RRR GI: +BS, NT, no distention Skin: No rash Neuro: motor grossly intact Psych: appropriate affect Objective Data Active Medications Acetaminophen (Acetaminophen 325 Mg Tablet) 650 mg PO Q6H PRN PRN Reason: Pain, Mild (Pain Scale 1-3) Amiodarone HCl (Amiodarone Hcl 200 Mg Tablet) 200 mg PO DAILY [facility] Last Admin: 12/03/21 18:20 Dose: Not Given Documented by: NGUYEN Non-Admin Reason: Physician Held Med Aspirin (Aspirin Enteric Coated 81 Mg Tablet.Dr) 81 mg PO DAILY [facility] Atorvastatin Calcium (Atorvastatin Calcium 80 Mg Tablet) 80 mg PO BEDTIME [facility] Last Admin: 12/03/21 23:12 Dose: 80 mg Documented by: BRANDEN Bumetanide (Bumetanide 1 Mg Tablet) 1 mg PO BIDWM [facility]; Protocol Last Admin: 12/03/21 23:12 Dose: 1 mg Documented by: BRANDEN Carvedilol (Carvedilol 3.125 Mg Tablet) 3.125 mg PO BID [facility]; Protocol Last Admin: 12/03/21 23:12 Dose: 3.125 mg Documented by: BRANDEN Fluoxetine HCl (Fluoxetine Hcl 20 Mg Capsule) 20 mg PO DAILY [facility] Last Admin: 12/03/21 18:20 Dose: 20 mg Documented by: NGUYEN Insulin Glargine (Insulin Glargine,Hum.Rec.Anlog 100 Unit/Ml 10 Ml Vial) 25 unit SUBCUT BEDTIME [facility] Last Admin: 12/03/21 23:11 Dose: 25 unit Documented by: BRANDEN Insulin Human Lispro (Insulin Lispro 100 Unit/Ml 3 Ml Vial) 0 unit SUBCUT QIDACHS [facility]; Protocol Last Admin: 12/04/21 07:49 Dose: Not Given Documented by: HEATHER Non-Admin Reason: BS 136 Pharmacy Consult (Consult Rx Perform Med Rec) 1 each MISCELLANE ONCE PRN PRN Reason: Consult order Sodium Chloride (0.9 % Sodium Chloride Flush 3 Ml Syringe) 3 ml IVFLUSH QSHIFT [facility] Last Admin: 12/04/21 09:24 Dose: Not Given Documented by: HEATHER Non-Admin Reason: Patient Asleep Vitamin D (Cholecalciferol (Vitamin D3) 25 Mcg Tablet) 50 mcg PO DAILY [facility] Labs CBC & Chem 7: 12/03/21 14:05 12/04/21 06:52 Labs: Laboratory Results - last 24 hr 12/03/21 12/03/21 12/03/21 14:05 14:05 14:05 MCV 90.3 MCH 29.5 MCHC 32.6 RDW 16.2 H Plt Count 226 MPV 8.7 L Immature Gran % (Auto) 0.6 H Neut % (Auto) 74.9 H Lymph % (Auto) 17.2 L [place] % (Auto) 6.8 Eos % (Auto) 0.3 Baso % (Auto) 0.2 Lymph # (Auto) 2.7 [place] # (Auto) 1.1 Eos # (Auto) 0.1 Baso # (Auto) 0.0 Abs Immat Gran (auto) 0.09 H Absolute Neuts (auto) 11.8 H Absolute Nucleated RBC 0.000 Nucleated RBC % (auto) 0.0 Hold Purple Top PT INR Anion Gap 16 Estim Creat Clear Calc 11.6 Estimated GFR 11 POC Glucose Random Glucose 166 H Lactic Acid Calcium 8.9 Magnesium 1.7 Total Bilirubin 0.8 AST 14 D ALT 21 Alkaline Phosphatase 83 Troponin I High Sens B-Natriuretic Peptide Total Protein 7.3 Albumin 3.7 Urine Color Urine Appearance Urine pH Ur Specific [place] Urine Protein Urine Glucose (UA) Urine Ketones Urine Blood Urine Nitrite Ur Leukocyte Esterase Urine RBC Urine WBC Ur Squamous Epith Cells Urine Bacteria COVID-19 (REJI) Negative COVID-19 Clin Com See Note 12/03/21 12/03/21 12/03/21 14:05 14:05 14:05 MCV MCH MCHC RDW Plt Count MPV Immature Gran % (Auto) Neut % (Auto) Lymph % (Auto) [place] % (Auto) Eos % (Auto) Baso % (Auto) Lymph # (Auto) [place] # (Auto) Eos # (Auto) Baso # (Auto) Abs Immat Gran (auto) Absolute Neuts (auto) Absolute Nucleated RBC Nucleated RBC % (auto) Hold Purple Top SEE NOTE PT 18.2 H INR 1.6 H Anion Gap Estim Creat Clear Calc Estimated GFR POC Glucose Random Glucose Lactic Acid Calcium Magnesium Total Bilirubin AST ALT Alkaline Phosphatase Troponin I High Sens 23.0 B-Natriuretic Peptide 547 H Total Protein Albumin Urine Color Urine Appearance Urine pH Ur Specific [place] Urine Protein Urine Glucose (UA) Urine Ketones Urine Blood Urine Nitrite Ur Leukocyte Esterase Urine RBC Urine WBC Ur Squamous Epith Cells Urine Bacteria COVID-19 (REJI) COVID-[employer] 12/03/21 12/03/21 12/03/21 15:34 16:28 16:28 MCV MCH MCHC RDW Plt Count MPV Immature Gran % (Auto) Neut % (Auto) Lymph % (Auto) [place] % (Auto) Eos % (Auto) Baso % (Auto) Lymph # (Auto) [place] # (Auto) Eos # (Auto) Baso # (Auto) Abs Immat Gran (auto) Absolute Neuts (auto) Absolute Nucleated RBC Nucleated RBC % (auto) Hold Purple Top PT INR Anion Gap Estim Creat Clear Calc Estimated GFR POC Glucose Random Glucose Lactic Acid 1.3 Calcium Magnesium Total Bilirubin AST ALT Alkaline Phosphatase Troponin I High Sens 22.0 B-Natriuretic Peptide Total Protein Albumin Urine Color YELLOW Urine Appearance CLEAR Urine pH 6.0 Ur Specific [place]on <= 1.005 Urine Protein 2+ H Urine Glucose (UA) NEG Urine Ketones NEG Urine Blood 3+ H Urine Nitrite NEG Ur Leukocyte Esterase NEG Urine RBC TNTC H Urine WBC 1-4 Ur Squamous Epith Cells TRACE Urine Bacteria 1+ COVID-19 (REJI) COVID-19 [employer] 12/03/21 12/04/21 22:36 06:52 MCV MCH MCHC RDW Plt Count MPV Immature Gran % (Auto) Neut % (Auto) Lymph % (Auto) [place] % (Auto) Eos % (Auto) Baso % (Auto) Lymph # (Auto) [place] # (Auto) Eos # (Auto) Baso # (Auto) Abs Immat Gran (auto) Absolute Neuts (auto) Absolute Nucleated RBC Nucleated RBC % (auto) Hold Purple Top PT INR Anion Gap 14 Estim Creat Clear Calc 10.7 Estimated GFR 10 POC Glucose 139 H Random Glucose 136 H Lactic Acid Calcium 8.7 Magnesium Total Bilirubin AST ALT Alkaline Phosphatase Troponin I High Sens B-Natriuretic Peptide Total Protein Albumin Urine Color Urine Appearance Urine pH Ur Specific [place] Urine Protein Urine Glucose (UA) Urine Ketones Urine Blood Urine Nitrite Ur Leukocyte Esterase Urine RBC Urine WBC Ur Squamous Epith Cells Urine Bacteria COVID-19 (REJI) COVID-19 Clin Com Microbiology Microbiology Results: Microbiology 12/03/21 15:25 Blood Culture - Preliminary Blood - Venous Prelim: GPC Gram Stain only Assessment and Plan (1) Bacteremia: Status: Acute Plan 66-year-old male with a past medical history of CKD currently on hemodialysis TTS, last dialysis Tuesday (2 days ago), diabetes type 2, hypertension, CHF with preserved ejection fraction, atrial fibrillation and arthrosclerotic cardiovas cular presenting to ED with gen weaknesss and missed dialysis, mild hyponatremia,? and mild fluid overload 1/ Generalized weakness d/t needing dialysis to remove toxins 2/ESRD--will arrange for dialysis today 3/ Hyponatremia d/t fluid overload and should correct following dialysis 4/? hematuria, observe and if not improving then urology consult 5/Chronic heart failure with preserved EF, acute fluid overload from ESRD--should correct with dialysis and Bumex 6/AFIB, rate controlled. Continue Coreg, amiodarone, eliquis? if truly no hematuria 7/HLS--Lipitor 8/Diabetes--SSI, Lantus gram positive cocci in blood, could be real or contamination, will give Vanco after dialysis and wait for sensitivity DVT prophylaxis:? Eliquis Inaptient need: bacteremia, needs IV until sensitivity available Quality Stroke Does the patient have a stroke diagnosis?: No VTE Prior VTE?: No VTE Risk Level:: Medical - low VTE Device Contraindication: Treatment Not Indicated VTE Drug Contraindication: Treatment Not Indicated
--- NOTE | 2021-12-04 14:19 | MHC.CM.PN ---
CALL FROM PATIENT'S [facility] NURSE, ALICIA ([phone]) ALICIA TELLS THIS MARKET MANAGER THAT THERE ARE BEEN MULTIPLE CONCERNS OF PATIENT MISSING HIS DIALYSIS AND NOT AGREEING TO SCHEDULED MEDICATION ADMINISTRATION HCP FOUND AND INFORMATION RELAYED TO MEGAN RN HCP IS SHABNAM HOUGH ([phone]) PER REVIEW OF RECORD, PATIENT WILL RECEIVE HIS HD HERE AND PLAN IS THEN TO RETURN HOME NO CONCERNS FOR COMPETENCY
--- NOTE | 2021-12-04 14:31 | PHA.PROG ---
Admission Date/Time: December 03, 2021 17:19 Indication: Bactermia Weight in k.039 kg Adjusted body weight in K.1 [place] body weight in K.5 Obesity Dosing Indication % IBW:n/a Serum Creatinine - Last 168 Hours 12/03/21 12/04/21 14:05 06:52 Creatinine 5.27 H* 5.74 H* Estimated CrCl and GFR - Last 168 Hours 12/03/21 12/04/21 14:05 06:52 Estim Creat Clear Calc 11.6 10.7 Estimated GFR 11 10 Vancomycin Loading Dose:1250 mg Current Vancomycin Dosing Regimen: dose by random level Date and Time for next Vancomycin Level to be drawn: 12/05 @ 1600 Pharmacist Comments on Vancomycin Plan: Patient received diaylsis today. Vancomycin scheduled for post diaylsis. HD schedule at home is TTS Pharmacy will follow-up daily on diaylsis day. Random level schedule tomorrow for if patient has dialysis. Vancomycin put on hold until random level is recieved. Teresa Garces PharmD Vancomycin dosing will take advantage of [employer] as a clinical decision support tool that uses Bayesian modeling to calculate individual patient's pharmacokinetic parameters and forecast the patient's drug concentration time course with the target goal AUC 24 range of 400 - 600 mg/L/hr.
--- NOTE | 2021-12-04 15:04 | MHC.CM.PN ---
PER MD, PT LIKELY TO DC HOME TOMORROW WITH RESUMPTION OF OUTPATIENT HD
[2021-12-04 15:56] VITALS: BP 156/74; PULSE 56; RESP 16; TEMP 37; O2SAT 98
[2021-12-04 16:00] VITALS: BP 157/73; PULSE 60; RESP 18; TEMP 36.8; O2SAT 94
[2021-12-04 16:06] LABS: Glucose, Whole Blood 102 mg/dL (60-115)
[2021-12-04] MEDS: Amiodarone HCL 200 MG TABLET PO (16:15)
[2021-12-04] MEDS: Aspirin Enteric Coated 81 MG TABLET.DR PO (16:15)
[2021-12-04] MEDS: vancomycin HCL 1,250 MG in 0.9 % Sodium Chloride 250 ML 166.67 MG IV (16:17)
[2021-12-04] MEDS: Bumetanide 1 MG TABLET PO (16:22)
[2021-12-04 19:30] VITALS: BP 144/70; PULSE 81; RESP 18; TEMP 37; O2SAT 92
[2021-12-04] MEDS: 0.9 % Sodium Chloride Flush 3 ML SYRINGE IVFLUSH (19:30)
[2021-12-04] MEDS: carvediloL 3.125 MG TABLET PO (19:31)
[2021-12-04] MEDS: Atorvastatin Calcium 80 MG TABLET PO (19:31)
[2021-12-04 20:06] VITALS: BP 144/69; PULSE 80; RESP 18; TEMP 37; O2SAT 93
[2021-12-04 20:14] LABS: Glucose, Whole Blood 204 mg/dL (60-115)
[2021-12-04] MEDS: Insulin Glargine,Hum.rec.anlog 100 UNIT/ML 10 ML VIAL 25 UNIT SUBCUT (21:51)
[2021-12-04] MEDS: Insulin Lispro 100 UNIT/ML 3 ML VIAL SUBCUT (21:51)
[2021-12-05] VITALS: BP 125/55; PULSE 61; RESP 18; TEMP 37.4; O2SAT 94
[2021-12-05 03:55] VITALS: BP 131/62; PULSE 58; RESP 18; TEMP 37.1; O2SAT 98
[2021-12-05 07:42] VITALS: BP 149/69; PULSE 52; RESP 16; TEMP 36.1; O2SAT 98
[2021-12-05] MEDS: 0.9 % Sodium Chloride Flush 3 ML SYRINGE IVFLUSH ×3 (10:15→21:56)
[2021-12-05] MEDS: Cholecalciferol (Vitamin D3) 25 MCG TABLET 50 MCG PO (10:15)
[2021-12-05] MEDS: carvediloL 3.125 MG TABLET PO (10:16)
[2021-12-05] MEDS: Amiodarone HCL 200 MG TABLET PO (10:16)
[2021-12-05] MEDS: Aspirin Enteric Coated 81 MG TABLET.DR PO (10:16)
[2021-12-05] MEDS: Bumetanide 1 MG TABLET PO ×2 (10:16→17:42)
[2021-12-05] MEDS: FLUoxetine HCl 20 MG CAPSULE PO (10:16)
[2021-12-05 11:25] LABS: Glucose, Whole Blood 109 mg/dL (60-115)
[2021-12-05 12:00] VITALS: BP 169/80; PULSE 61; RESP 18; TEMP 36; O2SAT 100
--- NOTE | 2021-12-05 12:12 | MHC.CM.PN ---
PATIENT RECEIVES HIS HD (WHEN COMPLIANT) AT [facility] [phone] HE IS EXPECTED AT 10:45 FOR 11 CHAIR TIME ON THE FACILITY IS CLOSED ON SUNDAYS PER CONVERSATION WITH RNELIANA AT [facility], PATIENT MISSES MANY APPOINTMENTS AND STATES IT IS DUE TO NO TRANSPORTATION OR ASSIST FOR TRANSPORT. PATIENT DOES HAVE A [employer] SECURITY THAT REPORTEDLY (FROM STAFF, INSURANCE COMPANY, AND FAMILY) DOES NOT SHOW UP WHEN EXPECTED.
--- NOTE | 2021-12-05 13:01 | HE.PHANOTE ---
Addendum entered by Jennifer Stark RPh 12/05/21 13:58: LEVEL WAS 17.9, CALL DAILY TO SEE WHEN DIALYSIS WILL HAPPEN NEXT Original Note: RE VANCO Patient did not receive dialysis today. I did put in a random level to ensure we are therapuetic. Call dialysis daily to see if patient is getting it
[2021-12-05 13:53] LABS: Vancomycin Random 17.8 mcg/mL (15-20)
--- NOTE | 2021-12-05 15:17 | HO.PM.IMPN ---
Subjective Subjective Date of Service: 12/05/21 Interval History: f/u on missing dialysis, weakness and now 1/2 psotive blood culture Interval history: drowsy this morning, awaiting dialysis Review of Systems no fever no sob Physical Exam Vital Signs: Vital Signs: Last Vital Signs Temp 96.8 F 12/05/21 12:00 Pulse 61 12/05/21 12:00 Resp 18 12/05/21 12:00 BP 169/80 H 12/05/21 12:00 Pulse Ox 100 12/05/21 12:00 BMI result Body Mass Index 25.0 Const: Other: General: AO X 3, no acute distress Resp: CTA bilateral CVS: S1,S2,RRR GI: +BS, NT, no distention Skin: No rash Neuro: motor grossly intact Psych: appropriate affect Objective Data Active Medications Acetaminophen (Acetaminophen 325 Mg Tablet) 650 mg PO Q6H PRN PRN Reason: Pain, Mild (Pain Scale 1-3) Amiodarone HCl (Amiodarone Hcl 200 Mg Tablet) 200 mg PO DAILY [facility] Last Admin: 12/05/21 10:16 Dose: 200 mg Documented by: ELISE Aspirin (Aspirin Enteric Coated 81 Mg Tablet.) 81 mg PO DAILY [facility] Last Admin: 12/05/21 10:16 Dose: 81 mg Documented by: ELISE Atorvastatin Calcium (Atorvastatin Calcium 80 Mg Tablet) 80 mg PO BEDTIME [facility] Last Admin: 12/04/21 19:31 Dose: 80 mg Documented by: NINA Bumetanide (Bumetanide 1 Mg Tablet) 1 mg PO BIDWM [facility]; Protocol Last Admin: 12/05/21 10:16 Dose: 1 mg Documented by: ELISE Carvedilol (Carvedilol 3.125 Mg Tablet) 3.125 mg PO BID [facility]; Protocol Last Admin: 12/05/21 10:16 Dose: 3.125 mg Documented by: ELISE Fluoxetine HCl (Fluoxetine Hcl 20 Mg Capsule) 20 mg PO DAILY [facility] Last Admin: 12/05/21 10:16 Dose: 20 mg Documented by: ELISE Vancomycin HCl 500 mg/ Sodium (Chloride) 110 mls @ 110 mls/hr IV TuThSa@1800 [facility] Insulin Glargine (Insulin Glargine,Hum.Rec.Anlog 100 Unit/Ml 10 Ml Vial) 25 unit SUBCUT BEDTIME [facility] Last Admin: 12/04/21 21:51 Dose: 25 unit Documented by: OSMINRISBita Insulin Human Lispro (Insulin Lispro 100 Unit/Ml 3 Ml Vial) 0 unit SUBCUT QIDACHS [facility]; Protocol Last Admin: 12/05/21 11:55 Dose: Not Given Documented by: ELISE Non-Admin Reason: No Insulin Coverage Pharmacy Consult (Consult Rx Perform Med Rec) 1 each MISCELLANE ONCE PRN PRN Reason: Consult order Pharmacy Consult (Consult Rx Vancomycin Dosing) 1 each MISCELLANE DAILY PRN PRN Reason: Consult order Sodium Chloride (0.9 % Sodium Chloride Flush 3 Ml Syringe) 3 ml IVFLUSH QSHIFT [facility] Last Admin: 12/05/21 10:15 Dose: 3 ml Documented by: ELISE Vitamin D (Cholecalciferol (Vitamin D3) 25 Mcg Tablet) 50 mcg PO DAILY [facility] Last Admin: 12/05/21 10:15 Dose: 50 mcg Documented by: ELISE Labs CBC & Chem 7: 12/03/21 14:05 12/04/21 06:52 Labs: Laboratory Results - last 24 hr 12/04/21 12/04/21 12/05/21 16:03 20:04 11:15 POC Glucose 102 204 H 109 Random Vancomycin 12/05/21 13:24 POC Glucose Random Vancomycin 17.8 Microbiology Microbiology Results: Microbiology 12/03/21 15:25 Blood Culture - Final Blood - Venous Coag negative Staphylococcus 12/03/21 15:27 Blood Culture - Preliminary Blood - Venous No growth after 24 hours. Assessment and Plan (1) Chronic kidney disease, unspecified: Status: Acute Plan 66-year-old male with a past medical history of CKD currently on hemodialysis TTS, last dialysis Tuesday (2 days ago), diabetes type 2, hypertension, CHF with preserved ejection fraction, atrial fibrillation and arthrosclerotic cardiovascular presenting to ED with gen weaknesss and missed dialysis, mild hyponatremia,? and mild fluid overload 1/ Generalized weakness d/t needing dialysis to remove toxins 2/ESRD--dialysis TTS 3/ HypOnatremia d/t fluid overload and should correct following dialysis 4/? hematuria, resolved 5/Chronic heart failure with preserved EF, acute fluid overload from ESRD--should correct with dialysis and Bumex 6/AFIB, rate controlled. Continue Coreg, amiodarone, eliquis? if truly no hematuria 7/HLS--Lipitor 8/Diabetes--SSI, Lantus gram positive cocci in blood, coag neg staph1 /2 DVT prophylaxis:? Eliquis Inaptient need: needs for dialysis, he is unable to get dialysis in the community today Quality Stroke Does the patient have a stroke diagnosis?: No VTE Prior VTE?: No VTE Risk Level:: Medical - low VTE Device Contraindication: Treatment Not Indicated VTE Drug Contraindication: Treatment Not Indicated
[2021-12-05 15:30] VITALS: BP 123/60; PULSE 56; RESP 18; TEMP 36.1; O2SAT 99
[2021-12-05 16:34] LABS: Glucose, Whole Blood 185 mg/dL (60-115)
[2021-12-05 16:38] LABS: Creatinine Clr Calc Pharmacy 12.3; Estimated Glomerular Filt Rate 12
[2021-12-05 19:49] VITALS: BP 158/78; PULSE 54; RESP 18; TEMP 36.3; O2SAT 96
[2021-12-05 20:27] LABS: Glucose, Whole Blood 164 mg/dL (60-115)
--- NOTE | 2021-12-05 20:32 | CONS_ITS ---
DATE OF SERVICE: 12/04/2021 REASON FOR CONSULTATION: I was asked to see patient to assist in evaluation and management of patient's dialysis needs. HISTORY OF PRESENT ILLNESS: In summary, he is a 66-year-old gentleman with ESRD, normally dialyzes Tuesday, , Tuesday. His last dialysis on Tuesday, presented to the hospital with generalized weakness and did not get his dialysis treatment on . It is not completely clear why he is feeling generally weak. PAST MEDICAL HISTORY: Notable for ESRD and again dialysis Tuesday, , Tuesday, paroxysmal AFib, type 2 diabetes, hypertension. MEDICATIONS: On admission noted in the admitting notes. Current medications noted on the SEP. ALLERGIES: HE HAS NO KNOWN DRUG ALLERGIES. FAMILY HISTORY: Noncontributory. REVIEW OF SYSTEMS: As noted above. SOCIAL HISTORY: He is a nonsmoker. Alcohol use in the past. PHYSICAL EXAMINATION: VITAL SIGNS: Stable. LUNGS: Breath sounds bilaterally. Decreased at the bases. CARDIAC: Regular rate and rhythm. ABDOMEN: Soft. EXTREMITIES: Show no edema. LABORATORY DATA: Showed hemoglobin 9.4, hematocrit 28.8, white blood cell count 15.8. Sodium 131, potassium 3.9, chloride 96, bicarb 25. IMPRESSION: End-stage renal disease. Patient missed his dialysis treatment, came to the emergency room. PLAN: To dialyze patient today and then see about discharging him tomorrow, so we can go to his regular dialysis treatment on Tuesday at the outpatient dialysis unit. Continue his routine medications. MD RICHARD Gill/LUTHER / [phone]
[2021-12-05] MEDS: Atorvastatin Calcium 80 MG TABLET PO (21:54)
[2021-12-05] MEDS: Insulin Glargine,Hum.rec.anlog 100 UNIT/ML 10 ML VIAL 25 UNIT SUBCUT (21:54)
[2021-12-05] MEDS: Insulin Lispro 100 UNIT/ML 3 ML VIAL SUBCUT (21:54)
[2021-12-06] VITALS (7 sets, daily range): BP systolic 132–165; BP diastolic 56–80; PULSE 53–64; RESP 14–18; TEMP 36–36.8; O2SAT 95–100
[2021-12-06 07:58] LABS: Glucose, Whole Blood 100 mg/dL (60-115)
[2021-12-06] MEDS: Cholecalciferol (Vitamin D3) 25 MCG TABLET 50 MCG PO (09:21)
[2021-12-06] MEDS: carvediloL 3.125 MG TABLET PO ×2 (09:21→21:01)
[2021-12-06] MEDS: Aspirin Enteric Coated 81 MG TABLET.DR PO (09:21)
[2021-12-06] MEDS: Amiodarone HCL 200 MG TABLET PO (09:21)
[2021-12-06] MEDS: 0.9 % Sodium Chloride Flush 3 ML SYRINGE IVFLUSH ×3 (09:21→21:01)
[2021-12-06] MEDS: Bumetanide 1 MG TABLET PO ×2 (09:21→17:20)
[2021-12-06] MEDS: FLUoxetine HCl 20 MG CAPSULE PO (09:25)
--- NOTE | 2021-12-06 09:39 | HE.PHANOTE ---
RE ARAVIND Pt is not scheduled for dialysis today per licensing manager Dia. No dorethao to be given today since level yesterday was 17.8. Please see if getting tomorrow Thanks Tremayne
--- NOTE | 2021-12-06 10:39 | P.PNIM_ITS ---
Subjective Subjective Date of Service: 12/06/21 Interval History: f/u on missing dialysis, weakness and now 1/2 psotive blood culture Interval history: more alert, had dialysis yesterday, no new issue Review of Systems no fever no sob Physical Exam Vital Signs: Vital Signs: Last Vital Signs Temp 97.5 F 12/06/21 07:38 Pulse 55 12/06/21 07:38 Resp 16 12/06/21 07:38 BP 165/80 H 12/06/21 07:38 Pulse Ox 100 12/06/21 07:38 BMI result Body Mass Index 25.0 Const: Other: General: AO X 3, no acute distress Resp: CTA bilateral CVS: S1,S2,RRR GI: +BS, NT, no distention Skin: No rash Neuro: motor grossly intact Psych: appropriate affect Objective Data Active Medications Acetaminophen (Acetaminophen 325 Mg Tablet) 650 mg PO Q6H PRN PRN Reason: Pain, Mild (Pain Scale 1-3) Amiodarone HCl (Amiodarone Hcl 200 Mg Tablet) 200 mg PO DAILY [facility] Last Admin: 12/06/21 09:21 Dose: 200 mg Documented by: ELISE Aspirin (Aspirin Enteric Coated 81 Mg Tablet.) 81 mg PO DAILY [facility] Last Admin: 12/06/21 09:21 Dose: 81 mg Documented by: EILSE Atorvastatin Calcium (Atorvastatin Calcium 80 Mg Tablet) 80 mg PO BEDTIME [facility] Last Admin: 12/05/21 21:54 Dose: 80 mg Documented by: ODRISBita Bumetanide (Bumetanide 1 Mg Tablet) 1 mg PO BIDWM [facility]; Protocol Last Admin: 12/06/21 09:21 Dose: 1 mg Documented by: ELISE Carvedilol (Carvedilol 3.125 Mg Tablet) 3.125 mg PO BID [facility]; Protocol Last Admin: 12/06/21 09:21 Dose: 3.125 mg Documented by: ELISE Fluoxetine HCl (Fluoxetine Hcl 20 Mg Capsule) 20 mg PO DAILY [facility] Last Admin: 12/06/21 09:25 Dose: 20 mg Documented by: ELISE Vancomycin HCl 500 mg/ Sodium (Chloride) 110 mls @ 110 mls/hr IV TuThSa@1800 [facility] Insulin Glargine (Insulin Glargine,Hum.Rec.Anlog 100 Unit/Ml 10 Ml Vial) 25 unit SUBCUT BEDTIME [facility] Last Admin: 12/05/21 21:54 Dose: 25 unit Documented by: OSMINRISBita Insulin Human Lispro (Insulin Lispro 100 Unit/Ml 3 Ml Vial) 0 unit SUBCUT QIDACHS [facility]; Protocol Last Admin: 12/06/21 09:06 Dose: Not Given Documented by: ELISE Non-Admin Reason: No Insulin Coverage Pharmacy Consult (Consult Rx Perform Med Rec) 1 each MISCELLANE ONCE PRN PRN Reason: Consult order Pharmacy Consult (Consult Rx Vancomycin Dosing) 1 each MISCELLANE DAILY PRN PRN Reason: Consult order Sodium Chloride (0.9 % Sodium Chloride Flush 3 Ml Syringe) 3 ml IVFLUSH QSHIFT [facility] Last Admin: 12/06/21 09:21 Dose: 3 ml Documented by: ELISE Vitamin D (Cholecalciferol (Vitamin D3) 25 Mcg Tablet) 50 mcg PO DAILY [facility] Last Admin: 12/06/21 09:21 Dose: 50 mcg Documented by: ELISE Labs CBC & Chem 7: 12/03/21 14:05 12/05/21 15:58 Labs: Laboratory Results - last 24 hr 12/05/21 12/05/21 12/05/21 11:15 13:24 15:33 Estim Creat Clear Calc Estimated GFR POC Glucose 109 185 H Random Vancomycin 17.8 12/05/21 12/05/21 12/06/21 15:58 19:51 07:41 Estim Creat Clear Calc 12.3 Estimated GFR 12 POC Glucose 164 H 100 Random Vancomycin Microbiology Microbiology Results: Microbiology 12/03/21 15:27 Blood Culture - Preliminary Blood - Venous No growth after 48 hours. 12/03/21 15:25 Blood Culture - Final Blood - Venous Coag negative Staphylococcus Assessment and Plan (1) Type 2 diabetes mellitus with unspecified complications: Status: Acute (2) Essential hypertension: Status: Acute (3) ESRD (end stage renal disease) on dialysis: Status: Acute Plan 66-year-old male with a past medical history of CKD currently on hemodialysis TTS, last dialysis Tuesday (2 days ago), diabetes type 2, hypertension, CHF with preserved ejection fraction, atrial fibrillation and arthrosclerotic cardiovascular presenting to ED with gen weaknesss and missed dialysis, mild hyponatremia,? and mild fluid overload 1/ Generalized weakness d/t needing dialysis to remove toxins 2/ESRD--dialysis TTS, had dialysis yesterday 3/ HypOnatremia d/t fluid overload and should correct following dialysis 4/? hematuria, resolved 5/Chronic heart failure with preserved EF, acute fluid overload from ESRD--geri uld correct with dialysis and Bumex 6/AFIB, rate controlled. Continue Coreg, amiodarone, eliquis? if truly no hematuria 7/HLS--Lipitor 8/Diabetes--SSI, Lantus gram positive cocci in blood, coag neg staph1 /2--doesn't need treatment DVT prophylaxis:? Eliquis Inaptient need: needs for dialysis, he is unable to get dialysis in the community today, may go home later today if arrangment with family is made Quality Stroke Does the patient have a stroke diagnosis?: No VTE Prior VTE?: No VTE Risk Level:: Medical - low VTE Device Contraindication: Treatment Not Indicated VTE Drug Contraindication: Treatment Not Indicated
[2021-12-06] MEDS: Insulin Lispro 100 UNIT/ML 3 ML VIAL SUBCUT ×2 (11:50→17:20)
[2021-12-06 11:52] LABS: Glucose, Whole Blood 157 mg/dL (60-115)
--- NOTE | 2021-12-06 12:16 | MHC.CM.PN ---
Addendum entered by Renu Ramey 12/06/21 12:25: CHANGE OF PLANS. PATIENT ASKING TO REMAIN ONE MORE DAY HCP AND NEPHEW DAVID ([phone]) AGREE WITH PLAN. PATIENT AWARE IMM 12/05 IN CHART Original Note: PATIENT IS DC TODAY AMBULANCE TRANSPORT TO BE ARRANGED. PATIENT HAS BEEN MADE AWARE OF IMPORTANCE OF HD COMPLIANCE, [facility] CONSIDERING THE PROCESS OF INVOKING HCP DUE TO PATIENT LACK OF SAFETY ( REPORTED BY [facility] LINE SERVICE ATTENDANT THROUGH [facility]) HCP TO BE CONTACTED FOLLOWING THIS NOTE
[2021-12-06 17:06] LABS: Glucose, Whole Blood 154 mg/dL (60-115)
--- NOTE | 2021-12-06 17:46 | PM.PNNEP ---
Subjective Subjective Date of Service: 12/06/21 Interval history: seen and examined, events noted Physical Exam Vital Signs: Vital Signs: Last Vital Signs Temp 97.6 F 12/06/21 15:30 Pulse 53 12/06/21 15:30 Resp 14 12/06/21 15:30 BP 132/65 12/06/21 15:30 Pulse Ox 96 12/06/21 15:30 BMI result Body Mass Index 25.0 Const: Other: General: AO X 3, no acute distress Resp: CTA bilateral CVS: S1,S2,RRR GI: +BS, NT, no distention Skin: No rash Neuro: motor grossly intact Psych: appropriate affect Objective Data Labs CBC & Chem 7: 12/03/21 14:05 12/05/21 15:58 Labs: Laboratory Results - last 24 hr 12/05/21 12/06/21 12/06/21 19:51 07:41 11:38 POC Glucose 164 H 100 157 H 12/06/21 17:01 POC Glucose 154 H Microbiology Microbiology Results: Microbiology 12/03/21 15:27 Blood - Venous Blood Culture - Preliminary No growth after 48 hours. 12/03/21 15:25 Blood - Venous Blood Culture - Final Coag negative Staphylococcus Procedures Date of Service Date of Service: 12/06/21 Assessment & Plan Assessment and plan (1) Type 2 diabetes mellitus with unspecified complications: Status: Acute (2) Essential hypertension: Status: Acute (3) ESRD (end stage renal disease) on dialysis: Status: Acute Plan 1. ESRD 2. HFpEF 3.DM REC: cont HD TTS, d/c planning Time Spent With Patient Time: Total time spent is greater than 50% in coordination of care (as documented) at patient's floor/unit and/or counseling patient: Progress Note: Quality Stroke Does the patient have a stroke diagnosis?: No
[2021-12-06 19:58] LABS: Glucose, Whole Blood 104 mg/dL (60-115)
[2021-12-06] MEDS: Insulin Glargine,Hum.rec.anlog 100 UNIT/ML 10 ML VIAL 25 UNIT SUBCUT (21:01)
[2021-12-06] MEDS: Atorvastatin Calcium 80 MG TABLET PO (21:01)
[2021-12-07 03:14] VITALS: BP 130/49; PULSE 67; RESP 16; TEMP 36.5; O2SAT 94
--- NOTE | 2021-12-07 07:39 | MHC.CLN ---
NUTRITION CHANGED DIET PER DIALYSIS PARAMETERS WITH DM. DIET=DIABETIC 1800 KCAL, 2 GRAM SODIUM, LOW PHOSPHORUS, LOW POTASSIUM.
[2021-12-07 08:00] VITALS: BP 164/76; PULSE 60; RESP 12; TEMP 36.6; O2SAT 95
[2021-12-07] MEDS: Bumetanide 1 MG TABLET PO (08:34)
[2021-12-07] MEDS: Cholecalciferol (Vitamin D3) 25 MCG TABLET 50 MCG PO (08:35)
[2021-12-07] MEDS: Amiodarone HCL 200 MG TABLET PO (08:35)
[2021-12-07] MEDS: FLUoxetine HCl 20 MG CAPSULE PO (08:36)
[2021-12-07] MEDS: Aspirin Enteric Coated 81 MG TABLET.DR PO (08:36)
[2021-12-07] MEDS: carvediloL 3.125 MG TABLET PO (08:36)
--- NOTE | 2021-12-07 09:34 | PM.DS ---
DS: Providers Provider Date of Service: 12/07/21 Date of admission: 12/03/21 17:19 Primary care physician: Unknown Physician Consults: 12/03/21 15:04 Consult to Nephrology Stat Consulting Provider: Gordon Pérez Reason for consultation: greg on ckd 12/03/21 17:19 Consult to Nephrology Routine Consulting Provider: Stef Montero Reason for consultation: ESRD TTS, mixed dialysis on 12/03 Has provider been notified: No DS: Diagnosis Discharge Diagnosis (1) Acute hyponatremia: Status: Acute (2) Fluid overload: Status: Acute (3) Type 2 diabetes mellitus with unspecified complications: Status: Acute (4) Essential hypertension: Status: Acute (5) Chronic kidney disease, unspecified: Status: Acute DS: Summary Hospital Course Hospital Course: Chief Complaint: weakness 66-year-old male with a past medical history of CKD currently on hemodialysis TTS, last dialysis Tuesday (2 days ago), diabetes type 2, hypertension, CAD,? CHF with preserved ejection fraction, and atrial fibrillation on Xarelto? presenting to the ED via EMS with complaints of general weakness and not feeling well since yesterday worse today.?He did not attend dialysis today and instead came to the ED because weakness, he also has been complaning of blood in urine as he makes some urine. BNP is 547, CXR no pulmonary edema, no sob, potassium is normal.? Hospital course:Patient was essentially hospitalized for missing dialysis resulting in fluid overload. He was admitted and had dialysed twice, he is now feeling better and will be discharge home on time to go to his next dialysis. Time Spent with Patient Time attestation: Total time spent providing and/or coordinating discharge services: Discharge coordination time: Greater than 30 minutes Quality: Safe Use of Opioids Does Pt have an Active Cancer Diagnosis on the Problem List?: No Quality: Stroke Does the patient have a stroke diagnosis?: No Physical Exam Vital Signs: Vital Signs: Last Vital Signs Temp 98.6 F 12/04/21 06:09 Pulse 57 12/04/21 06:09 Resp 18 12/04/21 06:09 BP 182/85 H 12/04/21 06:09 Pulse Ox 94 12/04/21 06:09 BMI result Body Mass Index 25.0 DS: Data Data Completed and Pending Labs on day of discharge: Laboratory Results - last 24 hr 12/03/21 12/03/21 12/03/21 14:05 14:05 14:05 WBC 15.8 H RBC 3.19 L Hgb 9.4 L Hct 28.8 L MCV 90.3 MCH 29.5 MCHC 32.6 RDW 16.2 H Plt Count 226 MPV 8.7 L Immature Gran % (Auto) 0.6 H Neut % (Auto) 74.9 H Lymph % (Auto) 17.2 L [place] % (Auto) 6.8 Eos % (Auto) 0.3 Baso % (Auto) 0.2 Lymph # (Auto) 2.7 [place] # (Auto) 1.1 Eos # (Auto) 0.1 Baso # (Auto) 0.0 Abs Immat Gran (auto) 0.09 H Absolute Neuts (auto) 11.8 H Absolute Nucleated RBC 0.000 Nucleated RBC % (auto) 0.0 Hold Purple Top PT INR Sodium 129 L Potassium 4.5 Chloride 93 L Carbon Dioxide 25 Anion Gap 16 BUN 28 H Creatinine 5.27 H* Estim Creat Clear Calc 11.6 Estimated GFR 11 POC Glucose Random Glucose 166 H Lactic Acid Calcium 8.9 Magnesium 1.7 Total Bilirubin 0.8 AST 14 D ALT 21 Alkaline Phosphatase 83 Troponin I High Sens B-Natriuretic Peptide Total Protein 7.3 Albumin 3.7 Urine Color Urine Appearance Urine pH Ur Specific [place] Urine Protein Urine Glucose (UA) Urine Ketones Urine Blood Urine Nitrite Ur Leukocyte Esterase Urine RBC Urine WBC Ur Squamous Epith Cells Urine Bacteria COVID-19 (REJI) Negative COVID-19 Clin Com See Note 12/03/21 12/03/21 12/03/21 14:05 14:05 14:05 WBC RBC Hgb Hct MCV MCH MCHC RDW Plt Count MPV Immature Gran % (Auto) Neut % (Auto) Lymph % (Auto) [place] % (Auto) Eos % (Auto) Baso % (Auto) Lymph # (Auto) [place] # (Auto) Eos # (Auto) Baso # (Auto) Abs Immat Gran (auto) Absolute Neuts (auto) Absolute Nucleated RBC Nucleated RBC % (auto) Hold Purple Top SEE NOTE PT 18.2 H INR 1.6 H Sodium Potassium Chloride Carbon Dioxide Anion Gap BUN Creatinine Estim Creat Clear Calc Estimated GFR POC Glucose Random Glucose Lactic Acid Calcium Magnesium Total Bilirubin AST ALT Alkaline Phosphatase Troponin I High Sens 23.0 B-Natriuretic Peptide 547 H Total Protein Albumin Urine Color Urine Appearance Urine pH Ur Specific [place] Urine Protein Urine Glucose (UA) Urine Ketones Urine Blood Urine Nitrite Ur Leukocyte Esterase Urine RBC Urine WBC Ur Squamous Epith Cells Urine Bacteria COVID-19 (REJI) COVID-19 Clin Com 12/03/21 12/03/21 12/03/21 15:34 16:28 16:28 WBC RBC Hgb Hct MCV MCH MCHC RDW Plt Count MPV Immature Gran % (Auto) Neut % (Auto) Lymph % (Auto) [place] % (Auto) Eos % (Auto) Baso % (Auto) Lymph # (Auto) [place] # (Auto) Eos # (Auto) Baso # (Auto) Abs Immat Gran (auto) Absolute Neuts (auto) Absolute Nucleated RBC Nucleated RBC % (auto) Hold Purple Top PT INR Sodium Potassium Chloride Carbon Dioxide Anion Gap BUN Creatinine Estim Creat Clear Calc Estimated GFR POC Glucose Random Glucose Lactic Acid 1.3 Calcium Magnesium Total Bilirubin AST ALT Alkaline Phosphatase Troponin I High Sens 22.0 B-Natriuretic Peptide Total Protein Albumin Urine Color YELLOW Urine Appearance CLEAR Urine pH 6.0 Ur Specific [place] <= 1.005 Urine Protein 2+ H Urine Glucose (UA) NEG Urine Ketones NEG Urine Blood 3+ H Urine Nitrite NEG Ur Leukocyte Esterase NEG Urine RBC TNTC H Urine WBC 1-4 Ur Squamous Epith Cells TRACE Urine Bacteria 1+ COVID-19 (REJI) COVID-19 Clin Com 12/03/21 12/04/21 22:36 06:52 WBC RBC Hgb Hct MCV MCH MCHC RDW Plt Count MPV Immature Gran % (Auto) Neut % (Auto) Lymph % (Auto) [place] % (Auto) Eos % (Auto) Baso % (Auto) Lymph # (Auto) [place] # (Auto) Eos # (Auto) Baso # (Auto) Abs Immat Gran (auto) Absolute Neuts (auto) Absolute Nucleated RBC Nucleated RBC % (auto) Hold Purple Top PT INR Sodium 131 L Potassium 3.9 Chloride 96 Carbon Dioxide 25 Anion Gap 14 BUN 34 H Creatinine 5.74 H* Estim Creat Clear Calc 10.7 Estimated GFR 10 POC Glucose 139 H Random Glucose 136 H Lactic Acid Calcium 8.7 Magnesium Total Bilirubin AST ALT Alkaline Phosphatase Troponin I High Sens B-Natriuretic Peptide Total Protein Albumin Urine Color Urine Appearance Urine pH Ur Specific [place] Urine Protein Urine Glucose (UA) Urine Ketones Urine Blood Urine Nitrite Ur Leukocyte Esterase Urine RBC Urine WBC Ur Squamous Epith Cells Urine Bacteria COVID-19 (REJI) COVID-19 Clin Com Discharge Plan Discharge Anticipated Discharge Date/Time: 12/07/21 09:31 Patient Disposition: Home Health Service Discharge Diagnosis: Missed dialysis Referrals: Physician,Unknown J [Physician] - 1 Week Discharge Medications: Continued atorvastatin 80 mg tablet 80 mg PO BEDTIME Qty: 90 2RF insulin aspart U-100 [Novolog Flexpen U-100 Insulin] 100 unit/mL (3 mL) insulin pen See Rx Instructions .ROUTE .COMPLEX 0RF Rx Instructions: sliding scale: blood sugar: 150-200: 2 units, 201-250: 4 units, 251-300: 6u, 301-350: 8 units, over 350 give 10 units Lantus Solostar U-100 Insulin 100 unit/mL (3 mL) insulin pen 25 unit subcut BEDTIME 0RF Eliquis 5 mg tablet 1 tab PO BID 0RF aspirin 81 mg tablet,delayed release (DR/EC) 81 mg PO DAILY 0RF amiodarone 200 mg tablet 200 mg PO QAM 0RF carvedilol 3.125 mg tablet 3.125 mg PO BID 0RF bumetanide 1 mg tablet 1 mg PO BID 0RF cholecalciferol (vitamin D3) 50 mcg (2,000 unit) tablet 50 mcg PO DAILY 0RF fluoxetine 20 mg capsule 20 mg PO QAM 0RF Discharge Orders: Discharge Order (Routine); Ordered 12/07/21 Ordered By: Gilberto Adrian Diet: advance to usual diet Activity on Discharge: As tolerated Stand Alone Forms: Patient Portal Discharge page Care Plan Goals: prevent rehospitalization Health Concerns: End-stage kidney Plan of Treatment: Resume outpatient dialysis as usual, follow-up with your primary care doctor within a week, call for appointment. Assessment: As above
--- NOTE | 2021-12-07 10:09 | MHC.CM.PN ---
ACTION AMBULANCE REQUEST FOR 1300 TO HOME RN, PATIENT, AND UNIT AWARE IMM 12/05 IN CHART
[2021-12-07 11:02] LABS: Glucose, Whole Blood 103 mg/dL (60-115)
== END 2021-12-07 12:29 | disposition home health service (06) | DRG 640 ==
LOC: HO.ED 16:41 → HO.EDOVER 17:31 → HO.S3 12-04 17:27
PROVIDERS: Physician Assistant Medical; Admitting Provider Internal Medicine; Emergency Provider Emergency Medicine; PCP Internal Medicine Geriatric Medicine; Visit Provider Internal Medicine
DX: E87.70 Fluid overload, unspecified (principal); N18.6 End stage renal disease; I13.2 Hypertensive heart and chronic kidney disease with heart failure and with stage 5 chronic kidney disease, or end stage renal disease; N17.9 Acute kidney failure, unspecified; I50.32 Chronic diastolic (congestive) heart failure; E87.1 Hypo-osmolality and hyponatremia; I25.10 Atherosclerotic heart disease of native coronary artery without angina pectoris; I48.0 Paroxysmal atrial fibrillation; I44.0 Atrioventricular block, first degree; I45.10 Unspecified right bundle-branch block; E11.22 Type 2 diabetes mellitus with diabetic chronic kidney disease; I48.91 Unspecified atrial fibrillation; R31.9 Hematuria, unspecified; Z91.15 Patient's noncompliance with renal dialysis; Z20.822 Contact with and (suspected) exposure to COVID-19; Z99.2 Dependence on renal dialysis; Z79.4 Long term (current) use of insulin; Z79.01 Long term (current) use of anticoagulants; Z79.82 Long term (current) use of aspirin; Z79.899 Other long term (current) drug therapy
CPT/HCPCS: 36415; 70450; 71045; 80048; 80053; 80202; 81001; 82565; 82947; 83605; 83735; 83880; 84484; 85025; 85610; 87040; 87147; 87205; 87635; 90999; 93005; 99285; 99291; J3370

== ENCOUNTER 2022-02-20 16:23 | Inpatient (IN) | payer MEDICARE, SELFPAY ==
--- NOTE | ~2022-02-20 | CT_ITS ---
EXAMINATION: CT HEAD WITHOUT CONTRAST CT CERVICAL SPINE WITHOUT CONTRAST CLINICAL INFORMATION: Altered mental status COMPARISON: CT head 12/03/2021 TECHNIQUE: Imaging was performed from the skull base to vertex without intravenous administration of contrast. In addition, helical noncontrast CT imaging was acquired through the cervical spine and source images were reviewed along with axial reconstructions and sagittal and coronal MPRs. [This CT examination was performed using dose optimization techniques as appropriate, variously including the following: *Automated exposure control *Adjustment of mA and/or kV according to patient size (this includes techniques or standardized protocols for targeted exams where dose is matched to indication/reason for exam; i.e. extremities or head) *Use of iterative reconstruction technique] DLP: 1133 mGy-cm FINDINGS: HEAD: No intracranial mass, hemorrhage, or midline shift is visualized. There is generalized global volume loss. Physiologic mineralization in basal ganglia bilaterally. There is moderate prominence of the ventricles and the sulci . There is mild hypodensity of the periventricular white matter due to chronic small vessel ischemic disease. There are vascular calcifications of the internal carotid arteries bilaterally. No extra-axial collections are identified. The paranasal sinuses and mastoid air cells are well aerated. CERVICAL SPINE: There is no evidence of acute cervical spine fracture. Vertebral bodies remain normal in height. Cervical vertebrae have normal alignment. There is multilevel degenerative spondylosis of the cervical spine with disc height narrowing and endplate spurs and facet joint arthrosis No pre- or paravertebral soft tissue abnormality is identified. Limited assessment of the lung apices is unremarkable. CT/CT cervical spine wo con IMPRESSION: 1. No acute intracranial pathology. 2. No CT evidence of acute cervical spine fracture or traumatic subluxation
--- NOTE | ~2022-02-20 | CT_ITS ---
EXAMINATION: CT CHEST, ABDOMEN AND PELVIS WITH CONTRAST CLINICAL INFORMATION: Altered mental status, nausea and vomiting COMPARISON: CT chest abdomen pelvis 11/10/2020 TECHNIQUE: Multidetector volumetric imaging was performed of the chest, abdomen and pelvis following administration of 100 mL Omnipaque 300 intravenous contrast. Oral contrast was administered. Sagittal and coronal reformatted images were obtained on the technologist's workstation. This CT examination was performed using dose optimization techniques as appropriate, variously including the following: *Automated exposure control *Adjustment of mA and/or kV according to patient size (this includes techniques or standardized protocols for targeted exams where dose is matched to indication/reason for exam; i.e. extremities or head) *Use of iterative reconstruction technique DLP: 1203 mGy-cm FINDINGS: CHEST WALL: Left internal jugular central venous catheter tip terminates in the right atrium. ABDOMINAL AND PELVIC WALL: Unremarkable. AXILLA: No lymphadenopathy. MEDIASTINUM: Heart is mildly enlarged. New indeterminate mediastinal lymphadenopathy increased from prior for example a 1.3 cm short axis precarinal node, 7:21 previously 0.4 cm. No hilar lymphadenopathy. Coronary artery calcification. PLEURA: New small bilateral pleural effusions. LIVER AND BILIARY TREE: Unremarkable. GALLBLADDER: Cholelithiasis. Mild gallbladder wall thickening however gallbladder is not significantly distended. PANCREAS: Unremarkable SPLEEN: Unremarkable ADRENAL GLANDS: Unremarkable. KIDNEYS AND URETERS: Unremarkable. UPPER GASTROINTESTINAL TRACT: Small hiatal hernia. VASCULAR: Unremarkable. ABDOMINOPELVIC LYMPH NODES: No lymphadenopathy. FREE FLUID: No free fluid. BLADDER: Marked circumferential urinary bladder wall thickening measuring up to 1.9 cm in thickness. PELVIC VISCERA: Endometrium is abnormally thickened for the postmenopausal state measuring up to 1.1 cm in thickness. LOWER GASTROINTESTINAL TRACT: Rectosigmoid surgical anastomosis. Small bowel surgical anastomosis in the right abdomen. Normal appendix. OSSEOUS STRUCTURES: ORIF of the right hip. LUNGS: Respiratory motion limits aeration the pulmonary parenchyma. There is dependent bibasilar atelectasis. There is diffuse groundglass with interlobular septal thickening. CT/CT abdomen pelvis wo con IMPRESSION: Diffuse groundglass opacities with interlobular septal thickening for which differential considerations would include pulmonary edema, given there are new small bilateral pleural effusions and mild cardiomegaly, and/or atypical/viral infection. Endometrium is abnormally thickened for the postmenopausal state measuring up to 1.1 cm in thickness. Recommend gynecologic evaluation and management and consider further imaging with pelvic ultrasound. New indeterminate mediastinal lymphadenopathy increased from priors, of uncertain etiology. Reactive or neoplastic etiology could both appear similar. Recommend correlation with clinical history and risk factors, and further workup on the basis of clinical history. At a minimum 3 month follow-up CT chest should be obtained to assess stability. Cholelithiasis. Mild gallbladder wall thickening however gallbladder is not significantly distended. Findings are equivocal for acute cholecystitis. Consider correlation with right upper quadrant ultrasound. Marked circumferential urinary bladder wall thickening measuring up to 1.9 cm in thickness, suspicious for cystitis. Left internal jugular central venous catheter tip terminates in the right atrium.
[2022-02-20 16:45] VITALS: BP 187/90; BP 187/91; PULSE 90; PULSE 92; RESP 22; TEMP 36.7; O2SAT 80; O2SAT 96; BMI 22.9
--- NOTE | 2022-02-20 16:59 | ECG_ITS ---
Test Reason : AMS Blood Pressure : / mmHG Vent. Rate : 084 BPM Atrial Rate : 084 BPM P-R Int : 202 ms QRS Dur : 150 ms QT Int : 438 ms P-R-T Axes : 026 -87 015 degrees QTc Int : 517 ms Normal sinus rhythm Right bundle branch block Left anterior fascicular block Bifascicular block Abnormal ECG When compared with ECG of 03-DEC-2021 13:46, No significant changes seen Referred By: Carmen Andrews Electronically Signed By:WILFREDO THOMPSON
--- NOTE | 2022-02-20 16:59 | ED_ITS ---
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 Patient states that he didn't feel well before dialysis but now that he has finished dialysis, he still doesn't' feel well. Patient is somewhat altered and able to answer questions after multiple attempts at asking. Patient denies any dizziness, lightheadedness, abdominal pain, chills, blurry vision, double vision, loss of vision, chest pain, difficulty breathing, shortness of breath, back pain, night sweats, pain with urination, increased urinary frequency, increased urinary urgency, blood in his urine or stool, syncope or a near syncopal episode, recent trauma or falls, bowel incontinence, bladder incontinence, bowel retention, bladder retention, or any other complaints at this time. Onset (ago): day(s) Severity: moderate Severity scale (1-10): 4 Relieving factors: none Exacerbating factors: none Associated symptoms: fever/chills and nausea/vomiting Treatments prior to arrival: none Related Data Home Medications Medication Instructions Recorded Confirmed amiodarone 200 mg tablet 1 tab PO DAILY 02/20/22 02/20/22 amiodarone 200 mg tablet 1 tab PO QAM 02/20/22 02/20/22 apixaban 5 mg tablet (Eliquis) 1 tab PO BID 02/20/22 02/20/22 apixaban 5 mg tablet (Eliquis) 1 tab PO BID 02/20/22 02/20/22 aspirin 81 mg tablet,delayed 1 tab PO DAILY 02/20/22 02/20/22 release atorvastatin 80 mg tablet 1 tab PO DAILY 02/20/22 02/20/22 bumetanide 1 mg tablet 1 tab PO BID 02/20/22 02/20/22 carvedilol 3.125 mg tablet 1 tab PO BID 02/20/22 02/20/22 cholecalciferol (vitamin D3) 50 1 tab PO DAILY 02/20/22 02/20/22 mcg (2,000 unit) tablet insulin aspart U-100 100 unit/mL ea subcut 02/20/22 (3 mL) subcutaneous pen (Novolog Flexpen U-100 Insulin aspart) insulin glargine 100 unit/mL (3 15 unit subcut DAILY 02/20/22 02/20/22 mL) subcutaneous pen (Lantus Solostar U-100 Insulin) Allergies Allergy/AdvReac Type Severity Reaction Status Date / Time No Known Allergies Allergy Verified 11/10/20 04:50 Review of Systems Constitutional: Constitutional: Reports no additional constitutional complaints, Denies chills, Reports fever(s) and Denies night sweats Eyes: Eyes: Reports no additional eye complaints, Denies blurry vision, Denies change in vision, Denies diplopia, Denies eye discharge, Denies loss of vision and Denies eye pain ENT: Denies dizziness Cardiovascular: Cardiovascular: Reports no additional cardiovascular complaints, Denies chest pain, Denies lightheadedness, Denies Loss of Consciousness and Denies dyspnea Respiratory: Respiratory: Reports no additional respiratory complaints, Reports cough and Denies dyspnea Gastrointestinal: Gastrointestinal: Reports no additional gastrointestinal complaints, Denies abdominal pain, Denies melena, Denies hematochezia, Denies change in bowel habits, Denies change in stool character, Reports nausea and Reports vomiting Genitourinary: Genitourinary: Reports no additional male genitourinary complaints, Denies hematuria, Denies oliguria, Denies difficulty urinating, Denies dysuria, Denies urinary frequency, Denies urinary hesitancy, Denies urinary incontinence and Denies urinary urgency Musculoskeletal: Musculoskeletal: Reports no additional musculoskeletal complaints, Denies numbness and Denies tingling Neurologic: Denies dizziness, Denies loss of vision, Denies numbness and Denies tingling Psychiatric: Psychiatric: Reports no additional psychiatric complaints Endocrine: Endocrine: Reports no additional endocrine complaints Hematologic/Lymphatic: Hematologic/Lymphatic: Reports no additional hematologi c/lymphatic complaints Allergic/Immunologic: Allergic/Immunologic: Reports no additional allergic/immunologic complaints PMFSH Past Medical History Attestation statement: The following information was validated with the patient. Source: old records reviewed Medical History Atherosclerotic cardiovascular disease Chronic heart failure with preserved ejection fraction Chronic kidney disease, unspecified ESRD (end stage renal disease) on dialysis Essential hypertension PAF (paroxysmal atrial fibrillation) Type 2 diabetes mellitus with unspecified complications Surgical History History of cardiac catheterization (~07/18/20) History of colon resection Family History Family History Father Esophageal cancer Mother Diabetes Hypertension Social History Social History Household Members: None Housing: Apartment Do you presently have visiting nurse or other home services: Yes Alcohol intake: former Patient Tobacco Use Status: Never used Tobacco Advance Directives: No Advance Directives Information Provided: No Advance Directives Date on File: 09/21/21 Physical Exam ED Vital Signs: Vital Signs - 24 hr 02/20/22 16:45 02/20/22 18:23 02/20/22 17:55 Temperature 98.0 F 103.5 F H Pulse Rate 92 79 86 Respiratory Rate 22 H 24 H 22 H Blood Pressure 187/91 H 164/72 H 167/71 H Pulse Oximetry 96 95 Oxygen Delivery Method Oxymask Oxymask Oxygen Flow Rate 12 02/20/22 17:20 02/20/22 19:21 Temperature 101.9 F H Pulse Rate 89 72 Respiratory Rate 24 H 17 Blood Pressure 171/69 H 127/62 Pulse Oximetry 96 Oxygen Delivery Method Oxymask Oxygen Flow Rate 12 BMI result Body Mass Index 22.9 Const General: cooperative, no acute distress, alert and awake Nutritional Appearance: well nourished Orientation/consciousness: patient oriented x3 (tranisentaly ) Limitations: no limitations HENMT Head: Yes normal to inspection and Yes atraumatic Ears: hearing grossly normal bilaterally and external ears normal General nose exam: Normal external nose present, no nasal discharge noted and no epistaxis Face and sinus: Yes normal facial exam, No abrasion and No laceration Mouth: Normal oral and palatal mucosa present, no drooling and no muffled voice Eyes General: appearance normal, both eyes and all related structures Periorbital: periorbital findings normal Eyelids: Yes eyelids normal Conjunctivae: conjunctivae normal Pupils: Equal, round and reactive pupils present EOM: EOMs intact bilaterally Neck Neck: Yes normal visual inspection, Yes full ROM and Yes no lymphadenopathy Chest Chest palpation & inspection: normal inspection of the chest Resp Effort & Inspection: able to speak in complete sentences, Actively coughing and labored Auscultation: crackles bilateral and diffuse Cardio Rate: regular rate Rhythm: regular rhythm GI Inspection: Yes normal to inspection Neuro General: patient oriented x3 (tranisentaly ) and moves all extremities Cranial nerves: Yes Equal, round and reactive pupils present Cognition (Neuro): normal cognition Motor exam (neuro): 5/5 motor strength present throughout Sensory Exam: Normal double simultaneous stimulation for sensation Coordination: [id number] test normal Extrem General: Yes normal to inspection, Yes full ROM and Yes capillary refill normal Psych Appearance: grossly normal Mental Status: mental status grossly normal Affect: normal affect Attitude: cooperative Thought process: Normal thought process present Thought content: Normal thought content present Insight: Good insight present (Psych) NIH Stroke Scale Internal: Initial- Upon Arrival Time: 16:59 Level of Consciousness: Alert Level of Consciousness Questions: Answers both questions correctly Level of Consciousness Commands: Performs both tasks correctly Best Gaze: Normal Visual: No visual loss Facial Palsy: Normal Motor Arm (Right): No drift Motor Arm (Left): No drift Motor Leg (Right): No drift Motor Leg (Left): No drift Limb Ataxia: Absent Sensory: Normal Best Language: No aphasia Dysarthia: Normal Extinction and Inattention: No abnormality Score: 0 Medical Decision Making MDM Narrative Medical decision making narrative: Patient is a 67 year old male presenting to the emergency department today with a cough, fever, nausea, vomiting, and feeling generally unwell. Patient's physical exam showed a febrile male with bilateral, diffuse, and diffuse rales in lung finley. Patient was intitally in the low 80% SPO2 upon presentation but when placed on oxymask, he came up to 100%. Patient's blood work showed an elevated white blood cell count of 24.6, a decreased sodium of 132, an elevated creatinine of 2.66, an elevated glucose of 324, a decreased calcium of 7.6, a decreased magnesium of 1.4 which was replaced via IV magnesium, a lactic acid of 2.5 with a repeat of 1.4, an elevated troponin of 478 with a repeat of 480.1 and an elevated BNP of 1842. Patient's EKG showed no acute changes to his previous and the patient denied any chest pain or shortness of breath. Patient was immediately identified as a sepsis alert. IV Zosyn was immediately ordered. Patient was considered to be fluid overloaded and did not need additional hydration with the sepsis bolus fluids. Patient states that he still produces some urine however, he has been unable to produce any here. Patient's chest CT showed diffuse groundglass opacities with interlobular septal thickening, new small bilateral pleural effusions, and mild cardiomegaly. Additionally, new indeterminate mediatinsal lymphadenopathy increased from prior study. Patient's CT abdomen/pelvis showed a marked circumferential urinary bladder wall thickening measuring up to 1.9cm at its thickest. Patient's head CT was negative for any acute process. Due to the patient's clinical presentation, lab findings, and imaging studies, I believe this patient to be septic secondary to pneumonia however, this patient is not and was never in septic shock. I explained my physical exam findings as well as all test results to the patient and the patient's family at bed side. I answered all questions asked by the patient and the patient's family at best side. I spoke to Dr. Talbert who agreed to hospital admission. Patient and the patient's family at the bed side verbalized agreement and understanding with this treatment plan and admission. Differential Diagnosis Differential Diagnosis: sepsis, penum[place] Medical Records Medical records reviewed: Yes I reviewed the patient's medical records. Lab Data Lab results reviewed: Yes I reviewed the patient's lab results. Result diagrams: 02/20/22 17:34 02/20/22 19:53 Labs: Lab Results 02/20/22 02/20/22 02/20/22 Range/Units 17:33 17:33 17:33 WBC (4.8-10.8) X10*3/uL RBC (4.60-5.80) X10*6/uL Hgb (14.0-18.0) g/dl Hct (42.0-52.0) % MCV (80.0-98.0) fL MCH (27.0-33.0) pg MCHC (31.0-36.0) g/dl RDW (11.0-16.0) % Plt Count (160-400) X10*3/uL MPV (9.4-12.4) fL Immature Gran % (Auto) (0.0-0.4) % Neut % (Auto) (45-73) % Lymph % (Auto) (20-40) % Clinton % (Auto) (2-11) % Eos % (Auto) (0-4) % Baso % (Auto) (0-2) % Lymph # (Auto) (1.2-4.9) X10*3/uL Clinton # (Auto) (0.1-1.2) X10*3/uL Eos # (Auto) (0.0-0.4) X10*3/uL Baso # (Auto) (0.0-0.2) X10*3/uL Abs Immat Gran (auto) (0.00-0.03) X10*3/uL Absolute Neuts (auto) (2.0-8.3) x10*3/uL Absolute Nucleated RBC (0.0-0.012) X10*3/uL Nucleated RBC % (auto) (0.0-0.2) /100WBC Smear Tech's Comments PT (10.0-13.1) SEC INR (0.9-1.1) APTT (26.0-36.4) SEC VBG pH (7.32-7.43) VBG pCO2 mmHg VBG pO2 mmHg VBG HCO3 (22-26) mmol/L VBG O2 Saturation % VBG Base Excess mmol/L Sodium (135-145) mmol/L Potassium (3.3-5.1) mmol/L Chloride (96-108) mmol/L Carbon Dioxide (22-29) mmol/L Anion Gap (12-20) BUN (9-16) mg/dL Creatinine (0.5-1.4) mg/dL Estim Creat Clear Calc Estimated GFR Random Glucose (60-115) mg/dL Lactic Acid 2.5 H* (0.5-2.0) mmol/L Lactic Acid F/U @ 2Hr (0.5-2.0) mmol/L Calcium (8.4-10.2) mg/dL Magnesium (1.6-2.6) mg/dL Total Bilirubin (0.0-1.0) mg/dL AST (5-37) U/L ALT (0-40) U/L Alkaline Phosphatase (39-117) U/L Total Creatine Kinase (38-174) U/L Troponin I High Sens Cancelled 478.0 H* D B-Natriuretic Peptide 1842 H (<100) pg/mL Total Protein (6.5-8.0) g/dL Albumin (3.5-5.0) g/dL COVID-19 (REJI) (Negative) COVID-19 Clin Com 02/20/22 02/20/22 02/20/22 Range/Units 17:34 18:08 18:09 WBC 24.6 H (4.8-10.8) X10*3/uL RBC 3.20 L (4.60-5.80) X10*6/uL Hgb 9.4 L (14.0-18.0) g/dl Hct 28.2 L (42.0-52.0) % MCV 88.1 (80.0-98.0) fL MCH 29.4 (27.0-33.0) pg MCHC 33.3 (31.0-36.0) g/dl RDW 14.7 (11.0-16.0) % Plt Count 241 (160-400) X10*3/uL MPV 9.1 L (9.4-12.4) fL Immature Gran % (Auto) 1.1 H (0.0-0.4) % Neut % (Auto) 94.3 H (45-73) % Lymph % (Auto) 1.7 L (20-40) % Clinton % (Auto) 2.7 (2-11) % Eos % (Auto) 0.0 (0-4) % Baso % (Auto) 0.2 (0-2) % Lymph # (Auto) 0.4 L (1.2-4.9) X10*3/uL Clinton # (Auto) 0.7 (0.1-1.2) X10*3/uL Eos # (Auto) 0.0 (0.0-0.4) X10*3/uL Baso # (Auto) 0.0 (0.0-0.2) X10*3/uL Abs Immat Gran (auto) 0.26 H (0.00-0.03) X10*3/uL Absolute Neuts (auto) 23.2 H (2.0-8.3) x10*3/uL Absolute Nucleated RBC 0.000 (0.0-0.012) X10*3/uL Nucleated RBC % (auto) 0.0 (0.0-0.2) /100WBC Smear Tech's Comments VERIFIED PT 17.6 H (10.0-13.1) SEC INR 1.5 H (0.9-1.1) APTT 29.1 (26.0-36.4) SEC VBG pH (7.32-7.43) VBG pCO2 mmHg VBG pO2 mmHg VBG HCO3 (22-26) mmol/L VBG O2 Saturation % VBG Base Excess mmol/L Sodium (135-145) mmol/L Potassium (3.3-5.1) mmol/L Chloride (96-108) mmol/L Carbon Dioxide (22-29) mmol/L Anion Gap (12-20) BUN (9-16) mg/dL Creatinine (0.5-1.4) mg/dL Estim Creat Clear Calc Estimated GFR Random Glucose (60-115) mg/dL Lactic Acid (0.5-2.0) mmol/L Lactic Acid F/U @ 2Hr (0.5-2.0) mmol/L Calcium (8.4-10.2) mg/dL Magnesium (1.6-2.6) mg/dL Total Bilirubin (0.0-1.0) mg/dL AST (5-37) U/L ALT (0-40) U/L Alkaline Phosphatase (39-117) U/L Total Creatine Kinase (38-174) U/L Troponin I High Sens B-Natriuretic Peptide (<100) pg/mL Total Protein (6.5-8.0) g/dL Albumin (3.5-5.0) g/dL COVID-19 (REJI) Negative (Negative) COVID-19 Clin Com See Note 02/20/22 02/20/22 02/20/22 Range/Units 18:20 19:19 19:53 WBC (4.8-10.8) X10*3/uL RBC (4.60-5.80) X10*6/uL Hgb (14.0-18.0) g/dl Hct (42.0-52.0) % MCV (80.0-98.0) fL MCH (27.0-33.0) pg MCHC (31.0-36.0) g/dl RDW (11.0-16.0) % Plt Count (160-400) X10*3/uL MPV (9.4-12.4) fL Immature Gran % (Auto) (0.0-0.4) % Neut % (Auto) (45-73) % Lymph % (Auto) (20-40) % Clinton % (Auto) (2-11) % Eos % (Auto) (0-4) % Baso % (Auto) (0-2) % Lymph # (Auto) (1.2-4.9) X10*3/uL Clinton # (Auto) (0.1-1.2) X10*3/uL Eos # (Auto) (0.0-0.4) X10*3/uL Baso # (Auto) (0.0-0.2) X10*3/uL Abs Immat Gran (auto) (0.00-0.03) X10*3/uL Absolute Neuts (auto) (2.0-8.3) x10*3/uL Absolute Nucleated RBC (0.0-0.012) X10*3/uL Nucleated RBC % (auto) (0.0-0.2) /100WBC Smear Tech's Comments PT (10.0-13.1) SEC INR (0.9-1.1) APTT (26.0-36.4) SEC VBG pH 7.48 H (7.32-7.43) VBG pCO2 37 mmHg VBG pO2 168 mmHg VBG HCO3 27 H (22-26) mmol/L VBG O2 Saturation 98.0 % VBG Base Excess 4.2 mmol/L Sodium 132 L (135-145) mmol/L Potassium 3.5 (3.3-5.1) mmol/L Chloride 95 L (96-108) mmol/L Carbon Dioxide 23 (22-29) mmol/L Anion Gap 18 (12-20) BUN 13 D (9-16) mg/dL Creatinine 2.66 H (0.5-1.4) mg/dL Estim Creat Clear Calc 26.1 Estimated GFR 24 Random Glucose 324 H D (60-115) mg/dL Lactic Acid (0.5-2.0) mmol/L Lactic Acid F/U @ 2Hr (0.5-2.0) mmol/L Calcium 7.6 L D (8.4-10.2) mg/dL Magnesium 1.4 L* (1.6-2.6) mg/dL Total Bilirubin 1.1 H (0.0-1.0) mg/dL AST 17 (5-37) U/L ALT 14 (0-40) U/L Alkaline Phosphatase 99 (39-117) U/L Total Creatine Kinase 27 L (38-174) U/L Troponin I High Sens 480.1 H* B-Natriuretic Peptide (<100) pg/mL Total Protein 6.5 (6.5-8.0) g/dL Albumin 3.2 L (3.5-5.0) g/dL COVID-19 (REJI) (Negative) COVID-19 Clin Com 02/20/22 Range/Units 19:53 WBC (4.8-10.8) X10*3/uL RBC (4.60-5.80) X10*6/uL Hgb (14.0-18.0) g/dl Hct (42.0-52.0) % MCV (80.0-98.0) fL MCH (27.0-33.0) pg MCHC (31.0-36.0) g/dl RDW (11.0-16.0) % Plt Count (160-400) X10*3/uL MPV (9.4-12.4) fL Immature Gran % (Auto) (0.0-0.4) % Neut % (Auto) (45-73) % Lymph % (Auto) (20-40) % Clinton % (Auto) (2-11) % Eos % (Auto) (0-4) % Baso % (Auto) (0-2) % Lymph # (Auto) (1.2-4.9) X10*3/uL Clinton # (Auto) (0.1-1.2) X10*3/uL Eos # (Auto) (0.0-0.4) X10*3/uL Baso # (Auto) (0.0-0.2) X10*3/uL Abs Immat Gran (auto) (0.00-0.03) X10*3/uL Absolute Neuts (auto) (2.0-8.3) x10*3/uL Absolute Nucleated RBC (0.0-0.012) X10*3/uL Nucleated RBC % (auto) (0.0-0.2) /100WBC Smear Tech's Comments PT (10.0-13.1) SEC INR (0.9-1.1) APTT (26.0-36.4) SEC VBG pH (7.32-7.43) VBG pCO2 mmHg VBG pO2 mmHg VBG HCO3 (22-26) mmol/L VBG O2 Saturation % VBG Base Excess mmol/L Sodium (135-145) mmol/L Potassium (3.3-5.1) mmol/L Chloride (96-108) mmol/L Carbon Dioxide (22-29) mmol/L Anion Gap (12-20) BUN (9-16) mg/dL Creatinine (0.5-1.4) mg/dL Estim Creat Clear Calc Estimated GFR Random Glucose (60-115) mg/dL Lactic Acid (0.5-2.0) mmol/L Lactic Acid F/U @ 2Hr 1.4 (0.5-2.0) mmol/L Calcium (8.4-10.2) mg/dL Magnesium (1.6-2.6) mg/dL Total Bilirubin (0.0-1.0) mg/dL AST (5-37) U/L ALT (0-40) U/L Alkaline Phosphatase (39-117) U/L Total Creatine Kinase (38-174) U/L Troponin I High Sens B-Natriuretic Peptide (<100) pg/mL Total Protein (6.5-8.0) g/dL Albumin (3.5-5.0) g/dL COVID-19 (REJI) (Negative) COVID-19 Clin Com Imaging Data CT Chest, abdomen and pelvis : Attestation: I personally reviewed and interpreted this imaging study as follows: My impression: Bilateral pneumonia. Radiologist's impression: ADDENDUM The described endometrial thickening is an error. The pelvis is remarkable for a markedly thick-walled urinary bladder. No prostatomegaly. Addendum Dictated By: Nalini Cotto MD Addendum Signed By: Electronically signed by Nalini Cotto MD 02/20/22 5935 Addendum Cosigned By: DD/ TD/TT: / EXAMINATION: CT CHEST, ABDOMEN AND PELVIS WITH CONTRAST CLINICAL INFORMATION: Altered mental status, nausea and vomiting? COMPARISON: CT chest abdomen pelvis 11/10/2020? TECHNIQUE: Multidetector volumetric imaging was performed of the chest, abdomen and pelvis following administration of 100 mL Omnipaque 300 intravenous contrast. Oral contrast was administered. Sagittal and coronal reformatted images were obtained on the technologist's workstation. This CT examination was performed using dose optimization techniques as appropriate, variously including the following: *Automated exposure control *Adjustment of mA and/or kV according to patient size (this includes techniques or standardized protocols for targeted exams where dose is matched to indication/reason for exam; i.e. extremities or head) *Use of iterative reconstruction technique DLP: 1203 mGy-cm FINDINGS: CHEST WALL: Left internal jugular central venous catheter tip terminates in the right atrium.? ABDOMINAL AND PELVIC WALL:? Unremarkable.? AXILLA: No lymphadenopathy.? MEDIASTINUM:? Heart is mildly enlarged. New indeterminate mediastinal lymphadenopathy increased from prior for example a 1.3 cm short axis precarinal node, 7:21 previously 0.4 cm.? No hilar lymphadenopathy. Coronary artery calcification. PLEURA: New small bilateral pleural effusions.? LIVER AND BILIARY TREE: Unremarkable. ? GALLBLADDER: Cholelithiasis. Mild gallbladder wall thickening however gallbladder is not significantly distended.? PANCREAS: Unremarkable? SPLEEN: Unremarkable? ADRENAL GLANDS: Unremarkable.? KIDNEYS AND URETERS: Unremarkable.? UPPER GASTROINTESTINAL TRACT: Small hiatal hernia.? VASCULAR: Unremarkable. ABDOMINOPELVIC LYMPH NODES: No lymphadenopathy. FREE FLUID: No free fluid. BLADDER: Marked circumferential urinary bladder wall thickening measuring up to 1.9 cm in thickness.? PELVIC VISCERA: Endometrium is abnormally thickened for the postmenopausal state measuring up to 1.1 cm in thickness. LOWER GASTROINTESTINAL TRACT: Rectosigmoid surgical anastomosis. Small bowel surgical anastomosis in the right abdomen.? Normal appendix. OSSEOUS STRUCTURES: ORIF of the right hip.? LUNGS: Respiratory motion limits aeration the pulmonary parenchyma. There is dependent bibasilar atelectasis. There is diffuse groundglass with interlobular septal thickening.? CT/CT chest wo con IMPRESSION: ? Diffuse groundglass opacities with interlobular septal thickening for which differential considerations would include pulmonary edema, given there are new small bilateral pleural effusions and mild cardiomegaly, and/or atypical/viral infection. ? Endometrium is abnormally thickened for the postmenopausal state measuring up to 1.1 cm in thickness. Recommend gynecologic evaluation and management and consider further imaging with pelvic ultrasound. ? New indeterminate mediastinal lymphadenopathy increased from priors, of uncertain etiology. Reactive or neoplastic etiology could both appear similar. Recommend correlation with clinical history and risk factors, and further workup on the basis of clinical history. At a minimum 3 month follow-up CT chest should be obtained to assess stability. ? Cholelithiasis. Mild gallbladder wall thickening however gallbladder is not significantly distended. Findings are equivocal for acute cholecystitis. Consider correlation with right upper quadrant ultrasound. ? Marked circumferential urinary bladder wall thickening measuring up to 1.9 cm in thickness, suspicious for cystitis.? ? Left internal jugular central venous catheter tip terminates in the right atrium. Dictated By: Nalini Cotto MD Signed By: Electronically signed by Nalini Cotto MD 02/20/[address] C-Spine and head: Attestation: I personally reviewed and interpreted this imaging study as follows: My impression: No acute process. Radiologist's impression: EXAMINATION: CT HEAD WITHOUT CONTRAST CT CERVICAL SPINE WITHOUT CONTRAST CLINICAL INFORMATION: Altered mental status? COMPARISON: CT head 12/03/2021 TECHNIQUE: Imaging was performed from the skull base to vertex without intravenous administration of contrast. In addition, helical noncontrast CT imaging was acquired through the cervical spine and source images were reviewed along with axial reconstructions and sagittal and coronal MPRs. [This CT examination was performed using dose optimization techniques as appropriate, variously including the following: *Automated exposure control *Adjustment of mA and/or kV according to patient size (this includes techniques or standardized protocols for targeted exams where dose is matched to indication/reason for exam; i.e. extremities or head) *Use of iterative reconstruction technique] DLP: 1133 mGy-cm FINDINGS: HEAD: No intracranial mass, hemorrhage, or midline shift is visualized. There is generalized global volume loss. Physiologic mineralization in basal ganglia bilaterally. There is moderate prominence of the ventricles and the sulci . There is mild hypodensity of the periventricular white matter due to chronic small vessel ischemic disease. There are vascular calcifications of the internal carotid arteries bilaterally. No extra-axial collections are identified. The paranasal sinuses and mastoid air cells are well aerated. CERVICAL SPINE: There is no evidence of acute cervical spine fracture. Vertebral bodies remain normal in height. Cervical vertebrae have normal alignment. There is multilevel degenerative spondylosis of the cervical spine with disc height narrowing and endplate spurs and facet joint arthrosis No pre- or paravertebral soft tissue abnormality is identified. Limited assessment of the lung apices is unremarkable. CT/CT cervical spine wo con IMPRESSION: 1. No acute intracranial pathology. 2. No CT evidence of acute cervical spine fracture or traumatic subluxation Dictated By: Reese Gomez MD Signed By: Electronically signed by Reese Gomez MD 02/20/22 1840 ECG Data Attestation: I personally reviewed and interpreted this ECG as follows: Prior ECG tracings: available for review Interpretation: Vent. Rate: 084 BPM ? ? Atrial Rate: 084 BPM P-R Int: 202 ms? QRS Dur: 150 ms QT Int: 438 ms ? ? ? P-R-T Axes: 026 -87 015 degrees QTc Int: 517 ms ? Normal sinus rhythm Right bundle branch block Left anterior fascicular block Bifascicular block Abnormal ECG When compared with ECG of 03-DEC-2021 13:46, SD interval has decreased Nonspecific T wave abnormality has replaced inverted T waves in Anterior leads DD/ 1801 Critical Care Time Critical Care Time Critical Care Time: Yes Total Critical Care Time: 45 Attestation: I spent 45 minutes of Critical Care Time with this patient. This does not include time spent on separately reported billable procedures. Discharge Plan Discharge Clinical Impression: Pneumonia, Sepsis, CKD (chronic kidney disease) Patient Disposition: Admitted As Inpatient Interventions: Admission Worksheet (ED) Last Done: 02/20/22 23:59 Discharge Date/Time: 02/20/22 20:35
[2022-02-20] MEDS: ondansetron HCL 4 MG/2 ML VIAL IVPUSH ×2 (17:13→18:03)
[2022-02-20 17:20] VITALS: BP 171/69; PULSE 89; RESP 24
[2022-02-20 17:44] LABS: Basophils Percent Auto 0.2 % (0-2); Hematocrit 28.2 % (42.0-52.0); Hemoglobin 9.4 g/dl (14.0-18.0); Imm Gran Abs Auto 0.26 X10*3/uL (0.00-0.03); Imm Gran Pct Auto 1.1 % (0.0-0.4); Lymphocytes Absolute Auto 0.4 X10*3/uL (1.2-4.9); Lymphocytes Percent Auto 1.7 % (20-40); MANUAL DIFF FLAG SCAN; Mean Corpuscular HGB Conc 33.3 g/dl (31.0-36.0); Mean Corpuscular Hemoglobin 29.4 pg (27.0-33.0); Mean Corpuscular Volume 88.1 fL (80.0-98.0); Mean Platelet Volume 9.1 fL (9.4-12.4); Monocytes Absolute Auto 0.7 X10*3/uL (0.1-1.2); Monocytes Percent Auto 2.7 % (2-11); Neutrophils Absolute Auto 23.2 x10*3/uL (2.0-8.3); Neutrophils Percent Auto 94.3 % (45-73); Platelet Count 241 X10*3/uL (160-400); Red Cell Distribution Width 14.7 % (11.0-16.0); SCAN SMEAR FLAG 1; White Blood Count 24.6 X10*3/uL (4.8-10.8)
[2022-02-20] MEDS: Metoclopramide HCl 10 MG/2 ML VIAL IVPUSH (17:53)
[2022-02-20 17:55] VITALS: BP 167/71; PULSE 86; RESP 22
[2022-02-20 17:58] LABS: Lactic Acid 2.5 mmol/L (0.5-2.0)
[2022-02-20 18:03] LABS: SLIDE REVIEW VERIFIED
[2022-02-20] MEDS: Piperacillin Sodium/Tazobactam 3.375 GM in 0.9 % Sodium Chloride 50 ML IV (18:11)
[2022-02-20 18:18] LABS: B Type Natriuretic Peptide 1842 pg/mL (<100)
[2022-02-20 18:23] VITALS: BP 164/72; PULSE 79; RESP 24; TEMP 39.7; O2SAT 95
[2022-02-20 18:24] LABS: Venous Blood Gas Refer to POC result
--- NOTE | 2022-02-20 18:25 | PC.NURSE ---
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 Vomiting. To CT scan with this RN, Vomited x 2. Suction PRN to protect airway. Pt medicated as charted to assist. Oxymask in place at 12lpm sat 95% at this time. No visible SOB noted, howveer pt tachypenic 22-26. NSR on tele rate 70s. Pt unable to follow commands. Rectakl temp 103.5. Skin pale, hot to touch. Bld work obtained, Zoysn started. Right chest permcath intact, clamps on.
[2022-02-20 18:26] LABS: INTERNATIONAL NORM RATIO 1.5 (0.9-1.1); Prothrombin Time 17.6 SEC (10.0-13.1)
[2022-02-20 18:26] LABS: VBG Base Excess 4.2 mmol/L; VBG HCO3 27 mmol/L (22-26); VBG pCO2 37 mmHg; VBG pH 7.48 (7.32-7.43); VBG pO2 168 mmHg
[2022-02-20 18:28] LABS: Partial Thromboplastin Time 29.1 SEC (26.0-36.4)
[2022-02-20 18:40] LABS: COVID-19 Test Negative (Negative); IDNOW Serial# 16C4AD1C
--- NOTE | 2022-02-20 18:45 | PHA.MEDREC ---
Pharmacy Consult ? Medication Reconciliation Pharmacy has completed the medication reconciliation. both claim history and patient's home med list from the dialysis center matched our records.
[2022-02-20] MEDS: Acetaminophen Supp 650 MG SUPP.RECT 1000 MG PR (19:01)
[2022-02-20 19:21] VITALS: BP 127/62; PULSE 72; RESP 17; TEMP 38.8; O2SAT 96
[2022-02-20 19:38] LABS: Reflex Lactate? Lactic Acid Added
[2022-02-20 20:07] LABS: Troponin-I High Sensitivity 480.1 ng/L (<3.5-35.0)
[2022-02-20 20:10] LABS: ~Lactic Acid-LAB USE ONLY 1.4 mmol/L (0.5-2.0)
[2022-02-20 20:22] LABS: Alanine Aminotransferase 14 U/L (0-40); Albumin Level 3.2 g/dL (3.5-5.0); Alkaline Phosphatase 99 U/L (39-117); Anion Gap 18 (12-20); Aspartate Amino Transferase 17 U/L (5-37); Bilirubin Total 1.1 mg/dL (0.0-1.0); Blood Urea Nitrogen 13 mg/dL (9-16); Calcium 7.6 mg/dL (8.4-10.2); Carbon Dioxide 23 mmol/L (22-29); Chloride 95 mmol/L (96-108); Creatinine Clr Calc Pharmacy 26.1; Estimated Glomerular Filt Rate 24; Glucose Random 324 mg/dL (60-115); Magnesium 1.4 mg/dL (1.6-2.6); Potassium 3.5 mmol/L (3.3-5.1); Sodium 132 mmol/L (135-145); Total Protein 6.5 g/dL (6.5-8.0)
[2022-02-20] MEDS: Magnesium Sulfate/H2O 2 GM/50 ML PIGGYBACK IV (20:47)
--- NOTE | 2022-02-20 20:47 | P.HPHOSP_ITS ---
History of Present Illness Date of Service: 02/20/22 Chief Complaint: not feeling well Cameroonian-speaking only, try to obtain history with the help of an recording studio intern This is a 67-year-old male with past medical history of CAD, CHF, ESRD on dialysis, HTN, P AF, type 2 diabetes who presents to the hospital with compl aints of not feeling well. I tried to obtain history from the patient but he is confused, not oriented to self place and therefore unable to give much history. It appears the patient went to dialysis, was feeling unwell, went home had multiple episodes of vomiting which is usual for him after dialysis, but was altered therefore his family brought him to the hospital. On arrival to the ED patient's vitals are significant for respiratory rate of 22, but is otherwise unremarkable Labs are significant for WBC count 24.6, hemoglobin of 9.4, medical 28.2, PT of 17.6 INR of 1.5, sodium of 133, lactic acid of 2.5, magnesium of 1.6, troponin of 478 increased to480, BNP of [address] showed no acute intracranial pathology, no CT evidence of cervical spine fracture or traumatic subluxation Chest CT showed diffuse ground-glass opacities with interlobular septal thickening for which differential consideration would include pulmonary edema, versus atypical/viral infection Abdominal CT showed also marked circumferential urinary bladder wall thickening Patient started on IV antibiotics will be admitted for further management Review of Systems Review of Systems: Yes all other systems are reviewed and are negative [facility] Medical History Atherosclerotic cardiovascular disease Chronic heart failure with preserved ejection fraction Chronic kidney disease, unspecified ESRD (end stage renal disease) on dialysis Essential hypertension PAF (paroxysmal atrial fibrillation) Type 2 diabetes mellitus with unspecified complications Family History Father Esophageal cancer Mother Diabetes Hypertension Surgical History History of cardiac catheterization (~07/18/20) History of colon resection Social History Household Members: Unknown / Unable to assess Housing: Unknown / Unable to assess Do you presently have visiting nurse or other home services: Yes Unable to assess alcohol history related to: Unknown Alcohol intake: former Patient Tobacco Use Status: Never used Tobacco Use of substances other than those prescribed or required for medical reasons: Unknown Advance Directives: No Advance Directives Information Provided: No Advance Directives Date on File: 09/21/21 Do you have thoughts of harming others: None Do you have a plan to hurt others: No Plan Nutrition Risks: Difficulty swallowing Meds Allergies Allergy/AdvReac Type Severity Reaction Status Date / Time No Known Allergies Allergy Verified 11/10/20 04:50 Active Medications: Current Medications Acetaminophen (Acetaminophen 325 Mg Tablet) 650 mg PO Q6H PRN PRN Reason: Pain, Mild (Pain Scale 1-3) Docusate Sodium (Docusate Sodium 100 Mg Capsule) 100 mg PO DAILY PRN PRN Reason: Constipation Furosemide (Furosemide 40 Mg/4 Ml Vial) 40 mg IVPUSH ONCE ONE; Protocol Stop: 02/20/22 20:39 Heparin Sodium (Porcine) (Heparin Sodium,Porcine 5,000 Unit/Ml Vial) 5,000 unit SUBCUT Q12H TRINH Magnesium Sulfate (Magnesium Sulfate/H2o) 2 gm in 50 mls @ 25 mls/hr IV ONCE ONE Stop: 02/20/22 22:21 Ceftriaxone Sodium 1 gm/ (Sodium Chloride) 50 mls @ 100 mls/hr IV Q24H TRINH Azithromycin 500 mg/ Sodium (Chloride) 250 mls @ 125 mls/hr IV Q24H TRINH Ondansetron HCl (Ondansetron Hcl 4 Mg/2 Ml Vial) 4 mg IVPUSH Q8H PRN PRN Reason: Nausea and Vomiting Pharmacy Consult (Consult Rx Perform Med Rec) 1 each MISCELLANE ONCE PRN PRN Reason: Consult order Sodium Chloride (0.9 % Sodium Chloride Flush 3 Ml Syringe) [address] [facility] Home Medications Medication Instructions Recorded Confirmed Last Taken Type amiodarone 200 mg tablet 1 tab PO DAILY 02/20/22 02/20/22 Unknown History amiodarone 200 mg tablet 1 tab PO QAM 02/20/22 02/20/22 Unknown History apixaban 5 mg tablet (Eliquis) 1 tab PO BID 02/20/22 02/20/22 Unknown History apixaban 5 mg tablet (Eliquis) 1 tab PO BID 02/20/22 02/20/22 Unknown History aspirin 81 mg tablet,delayed 1 tab PO DAILY 02/20/22 02/20/22 Unknown History release atorvastatin 80 mg tablet 1 tab PO DAILY 02/20/22 02/20/22 Unknown History bumetanide 1 mg tablet 1 tab PO BID 02/20/22 02/20/22 Unknown History carvedilol 3.125 mg tablet 1 tab PO BID 02/20/22 02/20/22 Unknown History cholecalciferol (vitamin D3) 50 1 tab PO DAILY 02/20/22 02/20/22 Unknown History mcg (2,000 unit) tablet insulin aspart U-100 100 unit/mL ea subcut 02/20/22 Unknown History (3 mL) subcutaneous pen (Novolog Flexpen U-100 Insulin aspart) insulin glargine 100 unit/mL (3 15 unit subcut DAILY 02/20/22 02/20/22 Unknown History mL) subcutaneous pen (Lantus Solostar U-100 Insulin) Physical Exam Vital Signs and Narrative: Vital Signs: Last Vital Signs Temp 101.9 F H 02/20/22 19:21 Pulse 72 02/20/22 19:21 Resp 17 02/20/22 19:21 BP 127/62 02/20/22 19:21 Pulse Ox 96 02/20/22 19:21 O2 Del Method 02/20/22 19:21 O2 Flow Rate 12 02/20/22 19:21 Oxygen Flow Rate 6 02/20/22 16:45 BMI result Body Mass Index 22.9 Const: Other: Patient is awake, oriented to self but not place or time, not answering questions appropriately General: cooperative and no acute distress Eyes: General: appearance normal, both eyes and all related structures Resp: Other: Crackles bilaterally Effort & Inspection: normal respiratory effort Cardio: Rate: regular rate Rhythm: regular rhythm GI: Palpation (GI): Soft to palpation Auscultation: normal bowel sounds Skin: General skin exam: no rashes or lesions noted Extrem: General: Yes normal to inspection and Yes no pedal edema Results Labs CBC and Chem 7: 02/21/22 05:44 02/20/22 19:53 Labs: Laboratory Results - last 24 hr 02/20/22 02/20/22 02/20/22 17:33 17:33 17:34 MCV 88.1 MCH 29.4 MCHC 33.3 RDW 14.7 Plt Count 241 MPV 9.1 L Immature Gran % (Auto) 1.1 H Neut % (Auto) 94.3 H Lymph % (Auto) 1.7 L Burt % (Auto) 2.7 Eos % (Auto) 0.0 Baso % (Auto) 0.2 Lymph # (Auto) 0.4 L Burt # (Auto) 0.7 Eos # (Auto) 0.0 Baso # (Auto) 0.0 Abs Immat Gran (auto) 0.26 H Absolute Neuts (auto) 23.2 H Absolute Nucleated RBC 0.000 Nucleated RBC % (auto) 0.0 Smear Tech's Comments VERIFIED PT INR APTT VBG pH VBG pCO2 VBG pO2 VBG HCO3 VBG O2 Saturation VBG Base Excess Anion Gap Estim Creat Clear Calc Estimated GFR Random Glucose Lactic Acid 2.5 H* Lactic Acid F/U @ 2Hr Calcium Magnesium Total Bilirubin AST ALT Alkaline Phosphatase Total Creatine Kinase B-Natriuretic Peptide 1842 H Total Protein Albumin COVID-19 (REJI) COVID-[employer] 02/20/22 02/20/22 02/20/22 18:08 18:09 18:20 MCV MCH MCHC RDW Plt Count MPV Immature Gran % (Auto) Neut % (Auto) Lymph % (Auto) Burt % (Auto) Eos % (Auto) Baso % (Auto) Lymph # (Auto) Burt # (Auto) Eos # (Auto) Baso # (Auto) Abs Immat Gran (auto) Absolute Neuts (auto) Absolute Nucleated RBC Nucleated RBC % (auto) Smear Tech's Comments PT 17.6 H INR 1.5 H APTT 29.1 VBG pH 7.48 H VBG pCO2 37 VBG pO2 168 VBG HCO3 27 H VBG O2 Saturation 98.0 VBG Base Excess 4.2 Anion Gap Estim Creat Clear Calc Estimated GFR Random Glucose Lactic Acid Lactic Acid F/U @ 2Hr Calcium Magnesium Total Bilirubin AST ALT Alkaline Phosphatase Total Creatine Kinase B-Natriuretic Peptide Total Protein Albumin COVID-19 (REJI) Negative COVID-19 [employer] See Note 02/20/22 02/20/22 19:53 19:53 MCV MCH MCHC RDW Plt Count MPV Immature Gran % (Auto) Neut % (Auto) Lymph % (Auto) Burt % (Auto) Eos % (Auto) Baso % (Auto) Lymph # (Auto) Burt # (Auto) Eos # (Auto) Baso # (Auto) Abs Immat Gran (auto) Absolute Neuts (auto) Absolute Nucleated RBC Nucleated RBC % (auto) Smear Tech's Comments PT INR APTT VBG pH VBG pCO2 VBG pO2 VBG HCO3 VBG O2 Saturation VBG Base Excess Anion Gap 18 Estim Creat Clear Calc 26.1 Estimated GFR 24 Random Glucose 324 H D Lactic Acid Lactic Acid F/U @ 2Hr 1.4 Calcium 7.6 L D Magnesium 1.4 L* Total Bilirubin 1.1 H AST 17 ALT 14 Alkaline Phosphatase 99 Total Creatine Kinase 27 L B-Natriuretic Peptide Total Protein 6.5 Albumin 3.2 L COVID-19 (REJI) COVID-19 Clin Com Imaging Radiologist's Impressions: Impressions Abdomen/Pelvis CT 02/20/22 18:08 IMPRESSION: Diffuse groundglass opacities with interlobular septal thickening for which differential considerations would include pulmonary edema, given there are new small bilateral pleural effusions and mild cardiomegaly, and/or atypical/viral infection. Endometrium is abnormally thickened for the postmenopausal state measuring up to 1.1 cm in thickness. Recommend gynecologic evaluation and management and consider further imaging with pelvic ultrasound. New indeterminate mediastinal lymphadenopathy increased from priors, of uncertain etiology. Reactive or neoplastic etiology could both appear similar. Recommend correlation with clinical history and risk factors, and further workup on the basis of clinical history. At a minimum 3 month follow-up CT chest should be obtained to assess stability. Cholelithiasis. Mild gallbladder wall thickening however gallbladder is not significantly distended. Findings are equivocal for acute cholecystitis. Consider correlation with right upper quadrant ultrasound. Marked circumferential urinary bladder wall thickening measuring up to 1.9 cm in thickness, suspicious for cystitis. Left internal jugular central venous catheter tip terminates in the right atrium. Chest CT 02/20/22 18:08 IMPRESSION: Diffuse groundglass opacities with interlobular septal thickening for which differential considerations would include pulmonary edema, given there are new small bilateral pleural effusions and mild cardiomegaly, and/or atypical/viral infection. Endometrium is abnormally thickened for the postmenopausal state measuring up to 1.1 cm in thickness. Recommend gynecologic evaluation and management and consider further imaging with pelvic ultrasound. New indeterminate mediastinal lymphadenopathy increased from priors, of uncertain etiology. Reactive or neoplastic etiology could both appear similar. Recommend correlation with clinical history and risk factors, and further workup on the basis of clinical history. At a minimum 3 month follow-up CT chest should be obtained to assess stability. Cholelithiasis. Mild gallbladder wall thickening however gallbladder is not significantly distended. Findings are equivocal for acute cholecystitis. Consider correlation with right upper quadrant ultrasound. Marked circumferential urinary bladder wall thickening measuring up to 1.9 cm in thickness, suspicious for cystitis. Left internal jugular central venous catheter tip terminates in the right atrium. Cervical Spine CT 02/20/22 18:27 IMPRESSION: 1. No acute intracranial pathology. 2. No CT evidence of acute cervical spine fracture or traumatic subluxation Head CT 02/20/22 18:27 IMPRESSION: 1. No acute intracranial pathology. 2. No CT evidence of acute cervical spine fracture or traumatic subluxation Assessment and Plan (1) Sepsis: Status: Acute (2) CHF exacerbation: Status: Acute (3) UTI (urinary tract infection): Status: Acute (4) Pneumonia: Status: Acute Plan 67-year-old male with past medical history of ESRD on dialysis, CHF, presents the hospital with what not feeling well found to have multiple acute medical issues # sepsis - secondary to pneumonia versus UTI - has leukocytosis, became febrile in the ED, and has lactic acidosis - treated with IV antibiotics, will continue - follow cultures # acute CHF exacerbation - patient appears in volume overload on chest CT there is also possible evidence for pneumonia - has elevated BNP, but clinically does not appear to be in volume overload - according to history given to ED patient completed his dialysis yesterday - patient reported that he still produces urine - patient given Lasix - will start him on low-sodium diet, strict I&O, daily weight - cardiology consulted - dialysis for fluid management # pneumonia - patient has leukocytosis, febrile, lactic acidosis - with evidence of atypical infection on chest CT - will treat with IV antibiotics - follow cultures - will obtain extensive respiratory panel - COVID-19 negative - monitor respiratory status # UTI - as evidence of cystitis on CT of the abdomen - pending UA - patient will be treated with IV antibiotics for above reasons therefore should be covered - will straight cath for urine this patient didreport that he produces urine # diabetes - continue home glargine - will add low-dose sliding scale insulin - diabetic diet # P AF - continue Eliquis and carvedilol DVT prophylaxis: Eliquis Given patient's need for IV antibiotics in the setting of sepsis as well as acute CHF exacerbation requiring IV diuretics patient will be admitted and will need a minimum 2 night hospital stay for further management and monitoring Quality Stroke Does the patient have a stroke diagnosis?: No VTE Prior VTE?: No VTE Risk Level:: Medical - moderate - high VTE Device Contraindication: Treatment Not Indicated VTE Drug Contraindication: N/A - Med Ordered
[2022-02-20] MEDS: Heparin Sodium,Porcine 5,000 UNIT/ML VIAL 5000 UNIT SUBCUT (22:02)
[2022-02-20] MEDS: Azithromycin 500 MG in 0.9 % Sodium Chloride 250 ML 125 MG IV (22:03)
[2022-02-20] MEDS: Furosemide 40 MG/4 ML VIAL IVPUSH (22:03)
[2022-02-20 22:10] VITALS: BP 119/66; PULSE 59; RESP 18; TEMP 37.2; O2SAT 98
[2022-02-21 00:12] VITALS: BMI 22.3
[2022-02-21 00:21] VITALS: BMI 22.3
[2022-02-21] MEDS: cefTRIAXone sodium 1 GM in 0.9 % Sodium Chloride 50 ML IV ×2 (00:24→22:15)
[2022-02-21] MEDS: 0.9 % Sodium Chloride Flush 3 ML SYRINGE IVFLUSH ×4 (00:24→20:13)
[2022-02-21 03:10] VITALS: BP 117/64; PULSE 54; RESP 17; TEMP 36.7; O2SAT 100
[2022-02-21 06:09] LABS: MANUAL DIFF FLAG NO
[2022-02-21 06:13] LABS: Basophils Percent Auto 0.2 % (0-2); Hematocrit 25.9 % (42.0-52.0); Hemoglobin 8.4 g/dl (14.0-18.0); Lymphocytes Absolute Auto 1.1 X10*3/uL (1.2-4.9); Lymphocytes Percent Auto 5.2 % (20-40); Mean Corpuscular HGB Conc 32.4 g/dl (31.0-36.0); Mean Corpuscular Hemoglobin 29.1 pg (27.0-33.0); Mean Corpuscular Volume 89.6 fL (80.0-98.0); Mean Platelet Volume 8.9 fL (9.4-12.4); Monocytes Absolute Auto 0.8 X10*3/uL (0.1-1.2); Neutrophils Percent Auto 89.6 % (45-73); Platelet Count 212 X10*3/uL (160-400); Red Blood Count 2.89 X10*6/uL (4.60-5.80); Red Cell Distribution Width 14.9 % (11.0-16.0); White Blood Count 20.1 X10*3/uL (4.8-10.8)
[2022-02-21 06:38] LABS: Anion Gap 19 (12-20); Blood Urea Nitrogen 15 mg/dL (9-16); Calcium 7.9 mg/dL (8.4-10.2); Carbon Dioxide 26 mmol/L (22-29); Chloride 95 mmol/L (96-108); Creatinine Clr Calc Pharmacy 20.3; Estimated Glomerular Filt Rate 18; Glucose Random 169 mg/dL (60-115); Sodium 136 mmol/L (135-145)
[2022-02-21 07:27] VITALS: BP 121/65; PULSE 57; RESP 16; TEMP 36.3; O2SAT 100
[2022-02-21 07:43] LABS: Glucose, Whole Blood 150 mg/dL (60-115)
[2022-02-21] MEDS: carvediloL 3.125 MG TABLET PO ×2 (07:54→20:13)
[2022-02-21] MEDS: Apixaban 5 MG TABLET PO ×2 (07:55→20:13)
[2022-02-21] MEDS: Atorvastatin Calcium 80 MG TABLET PO (07:55)
[2022-02-21] MEDS: Amiodarone HCL 200 MG TABLET PO (07:55)
[2022-02-21] MEDS: Cholecalciferol (Vitamin D3) 25 MCG TABLET 50 MCG PO (07:55)
[2022-02-21] MEDS: Aspirin Enteric Coated 81 MG TABLET.DR PO (07:55)
[2022-02-21] MEDS: Insulin Glargine,Hum.rec.anlog 100 UNIT/ML 10 ML VIAL 15 UNIT SUBCUT (07:56)
[2022-02-21 08:23] LABS: Appearance Urine CLOUDY; Color Urine DK YELLOW; Glucose Urine UA 100 MG/DL (NEG); Leukocyte Esterase Urine TRACE (NEG); Nitrite Urine NEG (NEG); PH 5.5 (5.0-8.0); UACC Culture Trigger NO; Urine Blood 3+ (NEG); Urine Ketones 5 MG/DL (NEG); Urine Protein 3+ MG/DL (NEG-TRACE)
[2022-02-21 08:41] LABS: Bacteria Urine 2+ /LPF; RBC Urine TNTC /HPF (0); Squamous Epithelial Cell Urine 2+ /LPF; UACC CULT YES
[2022-02-21 08:42] LABS: Hyaline Casts Urine 0-2 /LPF; Waxy Casts Urine 0-2 /LPF
[2022-02-21 08:53] LABS: Adenovirus PCR Not Detected (Not Detect.); Bordetella pertussis PCR Not Detected (Not Detect.)
[2022-02-21 08:54] LABS: Bordetella parapertussis PCR Not Detected (Not Detect.); Chlamydia pneumoniae PCR Not Detected (Not Detect.); Coronavirus 229E PCR Not Detected (Not Detect.); Coronavirus HKU1 PCR Not Detected (Not Detect.); Coronavirus NL63 PCR Not Detected (Not Detect.); Coronavirus OC43 PCR Not Detected (Not Detect.); Human metapneumovirus PCR Not Detected (Not Detect.); Influenza A PCR Not Detected (Not Detect.); Influenza B PCR Not Detected (Not Detect.); Mycoplasma pneumoniae PCR Not Detected (Not Detect.); Parainfluenza 1 PCR Not Detected (Not Detect.); Parainfluenza 2 PCR Not Detected (Not Detect.); Parainfluenza 3 PCR Not Detected (Not Detect.); Parainfluenza 4 PCR Not Detected (Not Detect.); RSV PCR Not Detected (Not Detect.); Rhino/Enterovirus PCR Not Detected (Not Detect.); SARS-CoV-2 PCR Not Detected (Not Detect.)
--- NOTE | 2022-02-21 09:26 | MHC.CM.PN ---
Patient is here with AMS/Confusion and CM has attempted X3 to reach family with no luck. From chart review only, Patient appears to have a CCA/PC and HD @ [place] [facility]. Home/resume said services and ? of new VNA is the tentative goal and CM has initiated and will follow for dc planning. IMM to be mailed certified letter to primary contact/Zunilda and a copy to be placed on the chart, PCP is Dr. Seo Name.
[2022-02-21] MEDS: Bumetanide 1 MG/4 ML VIAL IVPUSH ×2 (09:28→16:00)
[2022-02-21 11:10] VITALS: BP 104/58; PULSE 56; RESP 12; TEMP 36.6; O2SAT 99
--- NOTE | 2022-02-21 11:14 | P.CONCA_ITS ---
History of Present Illness History of Present Illness Date of Service: 02/21/22 Chief complaint: Sepsis, PNA Narrative: This is a cardiology consultation regarding congestive heart failure. It seems that he has presented to the hospital with complaints of not feeling well. Per H and P, patient went to dialysis, was feeling unwell more than went home and had multiple episodes of vomiting but was altered. Then family brought him to the hospital. CT chest had shown abnormal findings. Thought to have sepsis, acute heart failure, pneumonia and UTI. Cardiology has been consult. Patient is known to us through office visits. He has not been seen in an year and half. Very regular visits. Based on prior cardiac catheterization, he has significant multivessel coronary artery disease. He has been referred to Cardiac surgery multiple times but he does not appear that surgery ever materialized. Patient also has minimal understanding and minimal social support. He does not recall as to why CABG was never done. Any case he has not followed with us either. In the interim, he states that he is generally getting along and has not had any clear angina. Review of Systems Review of Systems: Yes all other systems are reviewed and are negative Constitutional: Constitutional: Reports as per HPI Eyes: Eyes: Reports as per HPI ENT: Reports as per HPI Cardiovascular: Cardiovascular: Reports as per HPI, Denies acrocyanosis, Denies cool extremities, Denies chest pain, Denies leg edema, Denies lightheadedness, Denies palpitations and Denies dyspnea Respiratory: Respiratory: Reports as per HPI, Reports no additional respiratory complaints and Denies dyspnea Gastrointestinal: Gastrointestinal: Reports as per HPI and Reports no additional gastrointestinal complaints Genitourinary: Genitourinary: Reports no additional male genitourinary complai nts and Reports as per HPI Musculoskeletal: Musculoskeletal: Reports no additional musculoskeletal complaints and Reports as per HPI Integumentary/Breasts: Skin/Breast: Reports system reviewed and no additional complaints, except as docu Neurologic: Reports system reviewed and no additional complaints, except as documented and Reports as per HPI Psychiatric: Psychiatric: Reports no additional psychiatric complaints and Reports as per HPI Endocrine: Endocrine: Reports no additional endocrine complaints, Reports as per HPI and Denies palpitations Hematologic/Lymphatic: Hematologic/Lymphatic: Reports no additional hematologic/lymphatic complaints and Reports as per HPI Allergic/Immunologic: Allergic/Immunologic: Reports no additional aller gic/immunologic complaints and Reports as per HPI [facility] Past Medical History Medical History Atherosclerotic cardiovascular disease Chronic heart failure with preserved ejection fraction Chronic kidney disease, unspecified ESRD (end stage renal disease) on dialysis Essential hypertension PAF (paroxysmal atrial fibrillation) Type 2 diabetes mellitus with unspecified complications Family History Family History Father Esophageal cancer Mother Diabetes Hypertension Surgical History Surgical History History of cardiac catheterization (~07/18/20) History of colon resection Social History Social History Household Members: Unknown / Unable to assess Housing: Unknown / Unable to assess Do you presently have visiting nurse or other home services: Yes Unable to assess alcohol history related to: Unknown Alcohol intake: former Patient Tobacco Use Status: Never used Tobacco Use of substances other than those prescribed or required for medical reasons: Unknown Advance Directives: No Advance Directives Information Provided: No Advance Directives Date on File: 09/21/21 Do you have thoughts of harming others: None Do you have a plan to hurt others: No Plan Nutrition Risks: Difficulty swallowing service: No Current occupational status: unemployed Meds Allergies Allergy/AdvReac Type Severity Reaction Status Date / Time No Known Allergies Allergy Verified 02/21/22 08:31 Active Medications: Current Medications Acetaminophen (Acetaminophen 325 Mg Tablet) 650 mg PO Q6H PRN PRN Reason: Pain, Mild (Pain Scale 1-3) Amiodarone HCl (Amiodarone Hcl 200 Mg Tablet) 200 mg PO DAILY [facility] Last Admin: 02/21/22 07:55 Dose: 200 mg Apixaban (Apixaban 5 Mg Tablet) 5 mg PO BID [facility] Last Admin: 02/21/22 07:55 Dose: 5 mg Aspirin (Aspirin Enteric Coated 81 Mg Tablet.) 81 mg PO DAILY [facility] Last Admin: 02/21/22 07:55 Dose: 81 mg Atorvastatin Calcium (Atorvastatin Calcium 80 Mg Tablet) 80 mg PO DAILY [facility] Last Admin: 02/21/22 07:55 Dose: 80 mg Bumetanide (Bumetanide 1 Mg/4 Ml Vial) 1 mg IVPUSH BID@0900,1700 [facility]; Protocol Last Admin: 02/21/22 09:28 Dose: 1 mg Carvedilol (Carvedilol 3.125 Mg Tablet) 3.125 mg PO BID [facility]; Protocol Last Admin: 02/21/22 07:54 Dose: 3.125 mg Dextrose (Dextrose 50 % 25 Gm/50 Ml Syringe) 25 gm IVPUSH Q15M PRN; Protocol PRN Reason: per Hypoglycemia Standing Ord. Docusate Sodium (Docusate Sodium 100 Mg Capsule) 100 mg PO DAILY PRN PRN Reason: Constipation Glucose (Glucose Gel 15 Gm Gel..Gram.) 15 gm PO Q15M PRN; Protocol PRN Reason: per Hypoglycemia Standing Ord. Ceftriaxone Sodium 1 gm/ (Sodium Chloride) 50 mls @ 100 mls/hr IV Q24H [facility] Last Infusion: 02/21/22 01:01 Dose: Infused Azithromycin 500 mg/ Sodium (Chloride) 250 mls @ 125 mls/hr IV Q24H [facility] Last Infusion: 02/21/22 00:24 Dose: Infused Insulin Glargine (Insulin Glargine,Hum.Rec.Anlog 100 Unit/Ml 10 Ml Vial) 15 unit SUBCUT DAILY [facility] Last Admin: 02/21/22 07:56 Dose: 15 unit Insulin Human Lispro (Insulin Lispro 100 Unit/Ml 3 Ml Vial) 0 unit SUBCUT QIDACHS [facility]; Protocol Last Admin: 02/21/22 07:57 Dose: Not Given Ondansetron HCl (Ondansetron Hcl 4 Mg/2 Ml Vial) 4 mg IVPUSH Q8H PRN PRN Reason: Nausea and Vomiting Pharmacy Consult (Consult Rx Perform Med Rec) 1 each MISCELLANE ONCE PRN PRN Reason: Consult order Sodium Chloride (0.9 % Sodium Chloride Flush 3 Ml Syringe) 3 ml IVFLUSH QSHIFT [facility] Last Admin: 02/21/22 07:56 Dose: 3 ml Vitamin D (Cholecalciferol (Vitamin D3) 25 Mcg Tablet) 50 mcg PO DAILY [facility] Last Admin: 02/21/22 07:55 Dose: 50 mcg Home Medications Medication Instructions Recorded Confirmed Last Taken Type amiodarone 200 mg tablet 1 tab PO QAM 02/20/22 02/20/22 Unknown History apixaban 5 mg tablet (Eliquis) 1 tab PO BID 02/20/22 02/20/22 Unknown History aspirin 81 mg tablet,delayed 1 tab PO DAILY 02/20/22 02/20/22 Unknown History release atorvastatin 80 mg tablet 1 tab PO DAILY 02/20/22 02/20/22 Unknown History bumetanide 1 mg tablet 1 tab PO BID 02/20/22 02/20/22 Unknown History carvedilol 3.125 mg tablet 1 tab PO BID 02/20/22 02/20/22 Unknown History cholecalciferol (vitamin D3) 50 1 tab PO DAILY 02/20/22 02/20/22 Unknown History mcg (2,000 unit) tablet insulin aspart U-100 100 unit/mL ea subcut 02/20/22 Unknown History (3 mL) subcutaneous pen (Novolog Flexpen U-100 Insulin aspart) insulin glargine 100 unit/mL (3 15 unit subcut DAILY 02/20/22 02/20/22 Unknown History mL) subcutaneous pen (Lantus Solostar U-100 Insulin) Physical Exam Vital Signs: Vital Signs: Last Vital Signs Temp 97.8 F 02/21/22 11:10 Pulse 56 02/21/22 11:10 Resp 12 02/21/22 11:10 BP 104/58 L 02/21/22 11:10 Pulse Ox 99 02/21/22 11:10 O2 Del Method 02/21/22 11:10 O2 Flow Rate 2 02/21/22 11:10 Oxygen Flow Rate 6 02/20/22 16:45 BMI result Body Mass Index 22.3 Const: General: comfortable and no acute distress Orientation/consciousness: patient oriented x3 HEENT: Other: Unremarkable Head: Yes normal to inspection Neck: Neck: Yes normal visual inspection Chest: Chest palpation & inspection: normal inspection of the chest Resp: Auscultation: crackles bilateral at the base Cardio: Palpation: normal PMI Heart sounds: S1 normal heart sound present, S2 normal heart sound present, no gallops, no murmurs and no rubs GI: Palpation (GI): Soft to palpation Back/Spine/Pelvis: Other: unremarkable Skin: General skin exam: no rashes or lesions noted Neuro: General: patient oriented x3 Extrem: General: Yes normal to inspection Psych: Mental Status: mental status grossly normal Objective Labs and Meds Result diagrams: 02/21/22 05:44 02/21/22 05:44 Lab results: Laboratory Results - last 24 hr 02/20/22 02/20/22 02/20/22 17:33 17:33 17:33 WBC RBC Hgb Hct MCV MCH MCHC RDW Plt Count MPV Immature Gran % (Auto) Neut % (Auto) Lymph % (Auto) [place] % (Auto) Eos % (Auto) Baso % (Auto) Lymph # (Auto) [place] # (Auto) Eos # (Auto) Baso # (Auto) Abs Immat Gran (auto) Absolute Neuts (auto) Absolute Nucleated RBC Nucleated RBC % (auto) Smear Tech's Comments PT INR APTT VBG pH VBG pCO2 VBG pO2 VBG HCO3 VBG O2 Saturation VBG Base Excess Sodium Potassium Chloride Carbon Dioxide Anion Gap BUN Creatinine Estim Creat Clear Calc Estimated GFR POC Glucose Random Glucose Lactic Acid 2.5 H* Lactic Acid F/U @ 2Hr Calcium Magnesium Total Bilirubin AST ALT Alkaline Phosphatase Total Creatine Kinase Troponin I High Sens Cancelled 478.0 H* D B-Natriuretic Peptide 1842 H Total Protein Albumin Urine Color Urine Appearance Urine pH Ur Specific Simms Urine Protein Urine Glucose (UA) Urine Ketones Urine Blood Urine Nitrite Ur Leukocyte Esterase Urine RBC Urine WBC Ur Squamous Epith Cells Urine Bacteria Hyaline Casts Granular Casts Waxy Casts Respiratory Panel Dorsey Adenovirus (Rapid PCR) B.pert (TEM-PCR) B.parapertussis DNA PCR C. pneumoniae DNA (PCR) Coronavirus OC43 (PCR) Coronavirus HKU1 (PCR) Coronavirus 229E (PCR) COVID-19 (REJI) COVID-19 Clin Com Coronavirus NL63 (PCR) Human Metapneumovir PCR Influenza A (RT-PCR) Influenza B (RT-PCR) M. pneumoniae (PCR) Parainfluenza 1 (PCR) Parainfluenza 2 (PCR) Parainfluenza 3 (PCR) Parainfluenza 4 (PCR) RSV (PCR) Entero/Rhino (PCR) SARS-CoV-2 RNA (RT-PCR) 02/20/22 02/20/22 02/20/22 17:34 18:08 18:09 WBC 24.6 H RBC 3.20 L Hgb 9.4 L Hct 28.2 L MCV 88.1 MCH 29.4 MCHC 33.3 RDW 14.7 Plt Count 241 MPV 9.1 L Immature Gran % (Auto) 1.1 H Neut % (Auto) 94.3 H Lymph % (Auto) 1.7 L [place] % (Auto) 2.7 Eos % (Auto) 0.0 Baso % (Auto) 0.2 Lymph # (Auto) 0.4 L [place] # (Auto) 0.7 Eos # (Auto) 0.0 Baso # (Auto) 0.0 Abs Immat Gran (auto) 0.26 H Absolute Neuts (auto) 23.2 H Absolute Nucleated RBC 0.000 Nucleated RBC % (auto) 0.0 Smear Tech's Comments VERIFIED PT 17.6 H INR 1.5 H APTT 29.1 VBG pH VBG pCO2 VBG pO2 VBG HCO3 VBG O2 Saturation VBG Base Excess Sodium Potassium Chloride Carbon Dioxide Anion Gap BUN Creatinine Estim Creat Clear Calc Estimated GFR POC Glucose Random Glucose Lactic Acid Lactic Acid F/U @ 2Hr Calcium Magnesium Total Bilirubin AST ALT Alkaline Phosphatase Total Creatine Kinase Troponin I High Sens B-Natriuretic Peptide Total Protein Albumin Urine Color Urine Appearance Urine pH Ur Specific Simms Urine Protein Urine Glucose (UA) Urine Ketones Urine Blood Urine Nitrite Ur Leukocyte Esterase Urine RBC Urine WBC Ur Squamous Epith Cells Urine Bacteria Hyaline Casts Granular Casts Waxy Casts Respiratory Panel Dorsey Adenovirus (Rapid PCR) B.pert (TEM-PCR) B.parapertussis DNA PCR C. pneumoniae DNA (PCR) Coronavirus OC43 (PCR) Coronavirus HKU1 (PCR) Coronavirus 229E (PCR) COVID-19 (REJI) Negative COVID-19 Clin Com See Note Coronavirus NL63 (PCR) Human Metapneumovir PCR Influenza A (RT-PCR) Influenza B (RT-PCR) M. pneumoniae (PCR) Parainfluenza 1 (PCR) Parainfluenza 2 (PCR) Parainfluenza 3 (PCR) Parainfluenza 4 (PCR) RSV (PCR) Entero/Rhino (PCR) SARS-CoV-2 RNA (RT-PCR) 02/20/22 02/20/22 02/20/22 18:20 19:19 19:53 WBC RBC Hgb Hct MCV MCH MCHC RDW Plt Count MPV Immature Gran % (Auto) Neut % (Auto) Lymph % (Auto) [place] % (Auto) Eos % (Auto) Baso % (Auto) Lymph # (Auto) [place] # (Auto) Eos # (Auto) Baso # (Auto) Abs Immat Gran (auto) Absolute Neuts (auto) Absolute Nucleated RBC Nucleated RBC % (auto) Smear Tech's Comments PT INR APTT VBG pH 7.48 H VBG pCO2 37 VBG pO2 168 VBG HCO3 27 H VBG O2 Saturation 98.0 VBG Base Excess 4.2 Sodium 132 L Potassium 3.5 Chloride 95 L Carbon Dioxide 23 Anion Gap 18 BUN 13 D Creatinine 2.66 H Estim Creat Clear Calc 26.1 Estimated GFR 24 POC Glucose Random Glucose 324 H D Lactic Acid Lactic Acid F/U @ 2Hr Calcium 7.6 L D Magnesium 1.4 L* Total Bilirubin 1.1 H AST 17 ALT 14 Alkaline Phosphatase 99 Total Creatine Kinase 27 L Troponin I High Sens 480.1 H* B-Natriuretic Peptide Total Protein 6.5 Albumin 3.2 L Urine Color Urine Appearance Urine pH Ur Specific Simms Urine Protein Urine Glucose (UA) Urine Ketones Urine Blood Urine Nitrite Ur Leukocyte Esterase Urine RBC Urine WBC Ur Squamous Epith Cells Urine Bacteria Hyaline Casts Granular Casts Waxy Casts Respiratory Panel Dorsey Adenovirus (Rapid PCR) B.pert (TEM-PCR) B.parapertussis DNA PCR C. pneumoniae DNA (PCR) Coronavirus OC43 (PCR) Coronavirus HKU1 (PCR) Coronavirus 229E (PCR) COVID-19 (REJI) COVID-19 Clin Com Coronavirus NL63 (PCR) Human Metapneumovir PCR Influenza A (RT-PCR) Influenza B (RT-PCR) M. pneumoniae (PCR) Parainfluenza 1 (PCR) Parainfluenza 2 (PCR) Parainfluenza 3 (PCR) Parainfluenza 4 (PCR) RSV (PCR) Entero/Rhino (PCR) SARS-CoV-2 RNA (RT-PCR) 02/20/22 02/20/22 02/21/22 19:53 22:41 05:44 WBC 20.1 H RBC 2.89 L Hgb 8.4 L Hct 25.9 L MCV 89.6 MCH 29.1 MCHC 32.4 RDW 14.9 Plt Count 212 MPV 8.9 L Immature Gran % (Auto) 1.0 H Neut % (Auto) 89.6 H Lymph % (Auto) 5.2 L [place] % (Auto) 4.0 Eos % (Auto) 0.0 Baso % (Auto) 0.2 Lymph # (Auto) 1.1 L [place] # (Auto) 0.8 Eos # (Auto) 0.0 Baso # (Auto) 0.0 Abs Immat Gran (auto) 0.20 H Absolute Neuts (auto) 18.0 H Absolute Nucleated RBC 0.000 Nucleated RBC % (auto) 0.0 Smear Tech's Comments PT INR APTT VBG pH VBG pCO2 VBG pO2 VBG HCO3 VBG O2 Saturation VBG Base Excess Sodium Potassium Chloride Carbon Dioxide Anion Gap BUN Creatinine Estim Creat Clear Calc Estimated GFR POC Glucose Random Glucose Lactic Acid Lactic Acid F/U @ 2Hr 1.4 Calcium Magnesium Total Bilirubin AST ALT Alkaline Phosphatase Total Creatine Kinase Troponin I High Sens B-Natriuretic Peptide Total Protein Albumin Urine Color Urine Appearance Urine pH Ur Specific Simms Urine Protein Urine Glucose (UA) Urine Ketones Urine Blood Urine Nitrite Ur Leukocyte Esterase Urine RBC Urine WBC Ur Squamous Epith Cells Urine Bacteria Hyaline Casts Granular Casts Waxy Casts Respiratory Panel Dorsey See Note Adenovirus (Rapid PCR) Not Detected B.pert (TEM-PCR) Not Detected B.parapertussis DNA PCR Not Detected C. pneumoniae DNA (PCR) Not Detected Coronavirus OC43 (PCR) Not Detected Coronavirus HKU1 (PCR) Not Detected Coronavirus 229E (PCR) Not Detected COVID-19 (REJI) COVID-19 Clin Com Coronavirus NL63 (PCR) Not Detected Human Metapneumovir PCR Not Detected Influenza A (RT-PCR) Not Detected Influenza B (RT-PCR) Not Detected M. pneumoniae (PCR) Not Detected Parainfluenza 1 (PCR) Not Detected Parainfluenza 2 (PCR) Not Detected Parainfluenza 3 (PCR) Not Detected Parainfluenza 4 (PCR) Not Detected RSV (PCR) Not Detected Entero/Rhino (PCR) Not Detected SARS-CoV-2 RNA (RT-PCR) Not Detected 02/21/22 02/21/22 02/21/22 05:44 07:25 07:41 WBC RBC Hgb Hct MCV MCH MCHC RDW Plt Count MPV Immature Gran % (Auto) Neut % (Auto) Lymph % (Auto) [place] % (Auto) Eos % (Auto) Baso % (Auto) Lymph # (Auto) [place] # (Auto) Eos # (Auto) Baso # (Auto) Abs Immat Gran (auto) Absolute Neuts (auto) Absolute Nucleated RBC Nucleated RBC % (auto) Smear Tech's Comments PT INR APTT VBG pH VBG pCO2 VBG pO2 VBG HCO3 VBG O2 Saturation VBG Base Excess Sodium 136 Potassium 4.0 Chloride 95 L Carbon Dioxide 26 Anion Gap 19 BUN 15 Creatinine 3.33 H Estim Creat Clear Calc 20.3 Estimated GFR 18 POC Glucose 150 H Random Glucose 169 H D Lactic Acid Lactic Acid F/U @ 2Hr Calcium 7.9 L Magnesium Total Bilirubin AST ALT Alkaline Phosphatase Total Creatine Kinase Troponin I High Sens B-Natriuretic Peptide Total Protein Albumin Urine Color DK YELLOW Urine Appearance CLOUDY Urine pH 5.5 Ur Specific Simms 1.020 Urine Protein 3+ H Urine Glucose (UA) 100 H Urine Ketones 5 Urine Blood 3+ H Urine Nitrite NEG Ur Leukocyte Esterase TRACE H Urine RBC TNTC H Urine WBC 5-9 H Ur Squamous Epith Cells 2+ Urine Bacteria 2+ Hyaline Casts 0-2 Granular Casts 5-9 Waxy Casts 0-2 Respiratory Panel Dorsey Adenovirus (Rapid PCR) B.pert (TEM-PCR) B.parapertussis DNA PCR C. pneumoniae DNA (PCR) Coronavirus OC43 (PCR) Coronavirus HKU1 (PCR) Coronavirus 229E (PCR) COVID-19 (REJI) COVID-19 Clin Com Coronavirus NL63 (PCR) Human Metapneumovir PCR Influenza A (RT-PCR) Influenza B (RT-PCR) M. pneumoniae (PCR) Parainfluenza 1 (PCR) Parainfluenza 2 (PCR) Parainfluenza 3 (PCR) Parainfluenza 4 (PCR) RSV (PCR) Entero/Rhino (PCR) SARS-CoV-2 RNA (RT-PCR) ECG Interpretation: EKG with sinus rhythm at 84/Min; right bundle-branch block pattern and left anterior fascicular block. Imaging Radiologist's impression: Impressions Abdomen/Pelvis CT 02/20/22 18:08 IMPRESSION: Diffuse groundglass opacities with interlobular septal thickening for which differential considerations would include pulmonary edema, given there are new small bilateral pleural effusions and mild cardiomegaly, and/or atypical/viral infection. Endometrium is abnormally thickened for the postmenopausal state measuring up to 1.1 cm in thickness. Recommend gynecologic evaluation and management and consider further imaging with pelvic ultrasound. New indeterminate mediastinal lymphadenopathy increased from priors, of uncertain etiology. Reactive or neoplastic etiology could both appear similar. Recommend correlation with clinical history and risk factors, and further workup on the basis of clinical history. At a minimum 3 month follow-up CT chest should be obtained to assess stability. Cholelithiasis. Mild gallbladder wall thickening however gallbladder is not significantly distended. Findings are equivocal for acute cholecystitis. Consider correlation with right upper quadrant ultrasound. Marked circumferential urinary bladder wall thickening measuring up to 1.9 cm in thickness, suspicious for cystitis. Left internal jugular central venous catheter tip terminates in the right atrium. Chest CT 02/20/22 18:08 IMPRESSION: Diffuse groundglass opacities with interlobular septal thickening for which differential considerations would include pulmonary edema, given there are new small bilateral pleural effusions and mild cardiomegaly, and/or atypical/viral infection. Endometrium is abnormally thickened for the postmenopausal state measuring up to 1.1 cm in thickness. Recommend gynecologic evaluation and management and consider further imaging with pelvic ultrasound. New indeterminate mediastinal lymphadenopathy increased from priors, of uncertain etiology. Reactive or neoplastic etiology could both appear similar. Recommend correlation with clinical history and risk factors, and further workup on the basis of clinical history. At a minimum 3 month follow-up CT chest should be obtained to assess stability. Cholelithiasis. Mild gallbladder wall thickening however gallbladder is not significantly distended. Findings are equivocal for acute cholecystitis. Consider correlation with right upper quadrant ultrasound. Marked circumferential urinary bladder wall thickening measuring up to 1.9 cm in thickness, suspicious for cystitis. Left internal jugular central venous catheter tip terminates in the right atrium. Cervical Spine CT 02/20/22 18:27 IMPRESSION: 1. No acute intracranial pathology. 2. No CT evidence of acute cervical spine fracture or traumatic subluxation Head CT 02/20/22 18:27 IMPRESSION: 1. No acute intracranial pathology. 2. No CT evidence of acute cervical spine fracture or traumatic subluxation Assessment and Plan (1) Acute diastolic (congestive) heart failure: Status: Acute Based on CT scan, probable diastolic heart failure. As he is already on dialysis, optimal fluid removal. (2) Atherosclerotic cardiovascular disease: Status: Acute Based on last cardiac catheterization July of 2020, severe multivessel coronary disease. He has been referred to Cardiac surgery multiple times but CABG never materialized. Also, minimal understanding. Continue aspirin, beta- blockers, statins. (3) PAF (paroxysmal atrial fibrillation): Status: Acute As he does not follow up in the office, do not recommend continuing amiodarone. Can stop. Continue Eliquis only. Plan Discussed with Dr. Villegas. Procedures Date of Service Date of Service: 02/21/22
[2022-02-21 11:35] LABS: Glucose, Whole Blood 197 mg/dL (60-115)
[2022-02-21] MEDS: Insulin Lispro 100 UNIT/ML 3 ML VIAL SUBCUT ×3 (11:51→20:12)
--- NOTE | 2022-02-21 11:57 | P.PNIM_ITS ---
Subjective Subjective Date of Service: 02/21/22 Interval History: sepsis, uti ,pneumonia, hypomagnesemia Review of Systems sob similar to yesterday denies any missing hd has cough no fevers Physical Exam Vital Signs: Vital Signs: Last Vital Signs Temp 97.8 F 02/21/22 11:10 Pulse 56 02/21/22 11:10 Resp 12 02/21/22 11:10 BP 104/58 L 02/21/22 11:10 Pulse Ox 99 02/21/22 11:10 O2 Del Method 02/21/22 11:10 O2 Flow Rate 2 02/21/22 11:10 Oxygen Flow Rate 6 02/20/22 16:45 BMI result Body Mass Index 22.3 Appearance: Alert.? Oriented X3.? not in distress.? cvs: rrr, [id number] , no murmur res: seems diminshed at bases , few rhonchii abd: no rebound or guarding ,nt, bs present. ext pulses present , no cyanosis. neuro: axo3 , nonfocal. Objective Data Active Medications Acetaminophen (Acetaminophen 325 Mg Tablet) 650 mg PO Q6H PRN PRN Reason: Pain, Mild (Pain Scale 1-3) Apixaban (Apixaban 5 Mg Tablet) 5 mg PO BID [facility] Last Admin: 02/21/22 07:55 Dose: 5 mg Documented By: HOLLAND Aspirin (Aspirin Enteric Coated 81 Mg Tablet.) 81 mg PO DAILY [facility] Last Admin: 02/21/22 07:55 Dose: 81 mg Documented By: HOLLAND Atorvastatin Calcium (Atorvastatin Calcium 80 Mg Tablet) 80 mg PO DAILY [facility] Last Admin: 02/21/22 07:55 Dose: 80 mg Documented By: HOLLAND Bumetanide (Bumetanide 1 Mg/4 Ml Vial) 1 mg IVPUSH BID@0900,1700 [facility]; Protocol Last Admin: 02/21/22 09:28 Dose: 1 mg Documented By: HOLLAND Carvedilol (Carvedilol 3.125 Mg Tablet) 3.125 mg PO BID [facility]; Protocol Last Admin: 02/21/22 07:54 Dose: 3.125 mg Documented By: HOLLAND Comments: BP-121/65 Dextrose (Dextrose 50 % 25 Gm/50 Ml Syringe) 25 gm IVPUSH Q15M PRN; Protocol PRN Reason: per Hypoglycemia Standing Ord. Docusate Sodium (Docusate Sodium 100 Mg Capsule) 100 mg PO DAILY PRN PRN Reason: Constipation Glucose (Glucose Gel 15 Gm Gel..Gram.) 15 gm PO Q15M PRN; Protocol PRN Reason: per Hypoglycemia Standing Ord. Ceftriaxone Sodium 1 gm/ (Sodium Chloride) 50 mls @ 100 mls/hr IV Q24H [facility] Last Infusion: 02/21/22 01:01 Dose: 0 mls/hr Documented By: KASSIDY Azithromycin 500 mg/ Sodium (Chloride) 250 mls @ 125 mls/hr IV Q24H [facility] Last Infusion: 02/21/22 00:24 Dose: 0 mls/hr Documented By: KASSIDY Insulin Glargine (Insulin Glargine,Hum.Rec.Anlog 100 Unit/Ml 10 Ml Vial) 15 unit SUBCUT DAILY [facility] Last Admin: 02/21/22 07:56 Dose: 15 unit Documented By: HOLLAND Insulin Human Lispro (Insulin Lispro 100 Unit/Ml 3 Ml Vial) 0 unit SUBCUT QIDACHS [facility]; Protocol Last Admin: 02/21/22 11:51 Dose: 2 unit Documented By: HOLLAND Ondansetron HCl (Ondansetron Hcl 4 Mg/2 Ml Vial) 4 mg IVPUSH Q8H PRN PRN Reason: Nausea and Vomiting Pharmacy Consult (Consult Rx Perform Med Rec) 1 each MISCELLANE ONCE PRN PRN Reason: Consult order Sodium Chloride (0.9 % Sodium Chloride Flush 3 Ml Syringe) 3 ml IVFLUSH QSHIFT [facility] Last Admin: 02/21/22 07:56 Dose: 3 ml Documented By: HOLLAND Vitamin D (Cholecalciferol (Vitamin D3) 25 Mcg Tablet) 50 mcg PO DAILY [facility] Last Admin: 02/21/22 07:55 Dose: 50 mcg Documented By: HOLLAND Labs CBC & Chem 7: 02/21/22 05:44 02/21/22 05:44 Labs: Laboratory Results - last 24 hr 02/20/22 02/20/22 02/20/22 17:33 17:33 17:34 MCV 88.1 MCH 29.4 MCHC 33.3 RDW 14.7 Plt Count 241 MPV 9.1 L Immature Gran % (Auto) 1.1 H Neut % (Auto) 94.3 H Lymph % (Auto) 1.7 L Armstrong % (Auto) 2.7 Eos % (Auto) 0.0 Baso % (Auto) 0.2 Lymph # (Auto) 0.4 L Armstrong # (Auto) 0.7 Eos # (Auto) 0.0 Baso # (Auto) 0.0 Abs Immat Gran (auto) 0.26 H Absolute Neuts (auto) 23.2 H Absolute Nucleated RBC 0.000 Nucleated RBC % (auto) 0.0 Smear Tech's Comments VERIFIED PT INR APTT VBG pH VBG pCO2 VBG pO2 VBG HCO3 VBG O2 Saturation VBG Base Excess Anion Gap Estim Creat Clear Calc Estimated GFR POC Glucose Random Glucose Lactic Acid 2.5 H* Lactic Acid F/U @ 2Hr Calcium Magnesium Total Bilirubin AST ALT Alkaline Phosphatase Total Creatine Kinase B-Natriuretic Peptide 1842 H Total Protein Albumin Urine Color Urine Appearance Urine pH Ur Specific [place] Urine Protein Urine Glucose (UA) Urine Ketones Urine Blood Urine Nitrite Ur Leukocyte Esterase Urine RBC Urine WBC Ur Squamous Epith Cells Urine Bacteria Hyaline Casts Granular Casts Waxy Casts Respiratory Panel Dorsey Adenovirus (Rapid PCR) B.pert (TEM-PCR) B.parapertussis DNA PCR C. pneumoniae DNA (PCR) Coronavirus OC43 (PCR) Coronavirus HKU1 (PCR) Coronavirus 229E (PCR) COVID-19 (REJI) COVID-19 Clin Com Coronavirus NL63 (PCR) Human Metapneumovir PCR Influenza A (RT-PCR) Influenza B (RT-PCR) M. pneumoniae (PCR) Parainfluenza 1 (PCR) Parainfluenza 2 (PCR) Parainfluenza 3 (PCR) Parainfluenza 4 (PCR) RSV (PCR) Entero/Rhino (PCR) SARS-CoV-2 RNA (RT-PCR) 02/20/22 02/20/22 02/20/22 18:08 18:09 18:20 MCV MCH MCHC RDW Plt Count MPV Immature Gran % (Auto) Neut % (Auto) Lymph % (Auto) Armstrong % (Auto) Eos % (Auto) Baso % (Auto) Lymph # (Auto) Armstrong # (Auto) Eos # (Auto) Baso # (Auto) Abs Immat Gran (auto) Absolute Neuts (auto) Absolute Nucleated RBC Nucleated RBC % (auto) Smear Tech's Comments PT 17.6 H INR 1.5 H APTT 29.1 VBG pH 7.48 H VBG pCO2 37 VBG pO2 168 VBG HCO3 27 H VBG O2 Saturation 98.0 VBG Base Excess 4.2 Anion Gap Estim Creat Clear Calc Estimated GFR POC Glucose Random Glucose Lactic Acid Lactic Acid F/U @ 2Hr Calcium Magnesium Total Bilirubin AST ALT Alkaline Phosphatase Total Creatine Kinase B-Natriuretic Peptide Total Protein Albumin Urine Color Urine Appearance Urine pH Ur Specific [place] Urine Protein Urine Glucose (UA) Urine Ketones Urine Blood Urine Nitrite Ur Leukocyte Esterase Urine RBC Urine WBC Ur Squamous Epith Cells Urine Bacteria Hyaline Casts Granular Casts Waxy Casts Respiratory Panel Dorsey Adenovirus (Rapid PCR) B.pert (TEM-PCR) B.parapertussis DNA PCR C. pneumoniae DNA (PCR) Coronavirus OC43 (PCR) Coronavirus HKU1 (PCR) Coronavirus 229E (PCR) COVID-19 (REJI) Negative COVID-19 Clin Com See Note Coronavirus NL63 (PCR) Human Metapneumovir PCR Influenza A (RT-PCR) Influenza B (RT-PCR) M. pneumoniae (PCR) Parainfluenza 1 (PCR) Parainfluenza 2 (PCR) Parainfluenza 3 (PCR) Parainfluenza 4 (PCR) RSV (PCR) Entero/Rhino (PCR) SARS-CoV-2 RNA (RT-PCR) 02/20/22 02/20/22 02/20/22 19:53 19:53 22:41 MCV MCH MCHC RDW Plt Count MPV Immature Gran % (Auto) Neut % (Auto) Lymph % (Auto) Armstrong % (Auto) Eos % (Auto) Baso % (Auto) Lymph # (Auto) Armstrong # (Auto) Eos # (Auto) Baso # (Auto) Abs Immat Gran (auto) Absolute Neuts (auto) Absolute Nucleated RBC Nucleated RBC % (auto) Smear Tech's Comments PT INR APTT VBG pH VBG pCO2 VBG pO2 VBG HCO3 VBG O2 Saturation VBG Base Excess Anion Gap 18 Estim Creat Clear Calc 26.1 Estimated GFR 24 POC Glucose Random Glucose 324 H D Lactic Acid Lactic Acid F/U @ 2Hr 1.4 Calcium 7.6 L D Magnesium 1.4 L* Total Bilirubin 1.1 H AST 17 ALT 14 Alkaline Phosphatase 99 Total Creatine Kinase 27 L B-Natriuretic Peptide Total Protein 6.5 Albumin 3.2 L Urine Color Urine Appearance Urine pH Ur Specific [place] Urine Protein Urine Glucose (UA) Urine Ketones Urine Blood Urine Nitrite Ur Leukocyte Esterase Urine RBC Urine WBC Ur Squamous Epith Cells Urine Bacteria Hyaline Casts Granular Casts Waxy Casts Respiratory Panel Dorsey See Note Adenovirus (Rapid PCR) Not Detected B.pert (TEM-PCR) Not Detected B.parapertussis DNA PCR Not Detected C. pneumoniae DNA (PCR) Not Detected Coronavirus OC43 (PCR) Not Detected Coronavirus HKU1 (PCR) Not Detected Coronavirus 229E (PCR) Not Detected COVID-19 (REJI) COVID-19 Clin Com Coronavirus NL63 (PCR) Not Detected Human Metapneumovir PCR Not Detected Influenza A (RT-PCR) Not Detected Influenza B (RT-PCR) Not Detected M. pneumoniae (PCR) Not Detected Parainfluenza 1 (PCR) Not Detected Parainfluenza 2 (PCR) Not Detected Parainfluenza 3 (PCR) Not Detected Parainfluenza 4 (PCR) Not Detected RSV (PCR) Not Detected Entero/Rhino (PCR) Not Detected SARS-CoV-2 RNA (RT-PCR) Not Detected 02/21/22 02/21/22 02/21/22 05:44 05:44 07:25 MCV 89.6 MCH 29.1 MCHC 32.4 RDW 14.9 Plt Count 212 MPV 8.9 L Immature Gran % (Auto) 1.0 H Neut % (Auto) 89.6 H Lymph % (Auto) 5.2 L Armstrong % (Auto) 4.0 Eos % (Auto) 0.0 Baso % (Auto) 0.2 Lymph # (Auto) 1.1 L Armstrong # (Auto) 0.8 Eos # (Auto) 0.0 Baso # (Auto) 0.0 Abs Immat Gran (auto) 0.20 H Absolute Neuts (auto) 18.0 H Absolute Nucleated RBC 0.000 Nucleated RBC % (auto) 0.0 Smear Tech's Comments PT INR APTT VBG pH VBG pCO2 VBG pO2 VBG HCO3 VBG O2 Saturation VBG Base Excess Anion Gap 19 Estim Creat Clear Calc 20.3 Estimated GFR 18 POC Glucose 150 H Random Glucose 169 H D Lactic Acid Lactic Acid F/U @ 2Hr Calcium 7.9 L Magnesium Total Bilirubin AST ALT Alkaline Phosphatase Total Creatine Kinase B-Natriuretic Peptide Total Protein Albumin Urine Color Urine Appearance Urine pH Ur Specific [place] Urine Protein Urine Glucose (UA) Urine Ketones Urine Blood Urine Nitrite Ur Leukocyte Esterase Urine RBC Urine WBC Ur Squamous Epith Cells Urine Bacteria Hyaline Casts Granular Casts Waxy Casts Respiratory Panel Dorsey Adenovirus (Rapid PCR) B.pert (TEM-PCR) B.parapertussis DNA PCR C. pneumoniae DNA (PCR) Coronavirus OC43 (PCR) Coronavirus HKU1 (PCR) Coronavirus 229E (PCR) COVID-19 (REJI) COVID-19 Clin Com Coronavirus NL63 (PCR) Human Metapneumovir PCR Influenza A (RT-PCR) Influenza B (RT-PCR) M. pneumoniae (PCR) Parainfluenza 1 (PCR) Parainfluenza 2 (PCR) Parainfluenza 3 (PCR) Parainfluenza 4 (PCR) RSV (PCR) Entero/Rhino (PCR) SARS-CoV-2 RNA (RT-PCR) 02/21/22 02/21/22 07:41 11:09 MCV MCH MCHC RDW Plt Count MPV Immature Gran % (Auto) Neut % (Auto) Lymph % (Auto) Armstrong % (Auto) Eos % (Auto) Baso % (Auto) Lymph # (Auto) Armstrong # (Auto) Eos # (Auto) Baso # (Auto) Abs Immat Gran (auto) Absolute Neuts (auto) Absolute Nucleated RBC Nucleated RBC % (auto) Smear Tech's Comments PT INR APTT VBG pH VBG pCO2 VBG pO2 VBG HCO3 VBG O2 Saturation VBG Base Excess Anion Gap Estim Creat Clear Calc Estimated GFR POC Glucose 197 H Random Glucose Lactic Acid Lactic Acid F/U @ 2Hr Calcium Magnesium Total Bilirubin AST ALT Alkaline Phosphatase Total Creatine Kinase B-Natriuretic Peptide Total Protein Albumin Urine Color DK YELLOW Urine Appearance CLOUDY Urine pH 5.5 Ur Specific [place] 1.020 Urine Protein 3+ H Urine Glucose (UA) 100 H Urine Ketones 5 Urine Blood 3+ H Urine Nitrite NEG Ur Leukocyte Esterase TRACE H Urine RBC TNTC H Urine WBC 5-9 H Ur Squamous Epith Cells 2+ Urine Bacteria 2+ Hyaline Casts 0-2 Granular Casts 5-9 Waxy Casts 0-2 Respiratory Panel Dorsey Adenovirus (Rapid PCR) B.pert (TEM-PCR) B.parapertussis DNA PCR C. pneumoniae DNA (PCR) Coronavirus OC43 (PCR) Coronavirus HKU1 (PCR) Coronavirus 229E (PCR) COVID-19 (REJI) COVID-19 Clin Com Coronavirus NL63 (PCR) Human Metapneumovir PCR Influenza A (RT-PCR) Influenza B (RT-PCR) M. pneumoniae (PCR) Parainfluenza 1 (PCR) Parainfluenza 2 (PCR) Parainfluenza 3 (PCR) Parainfluenza 4 (PCR) RSV (PCR) Entero/Rhino (PCR) SARS-CoV-2 RNA (RT-PCR) Assessment and Plan (1) Type 2 diabetes mellitus with unspecified complications: (2) Essential hypertension: (3) ESRD (end stage renal disease) on dialysis: Plan 67-year-old male with past medical history of ESRD on dialysis, CHF, presents the hospital with what not feeling well found to have multiple acute medical issues sepsis - secondary to pneumonia versus UTI - has leukocytosis improving, became febrile in the ED, and has lactic acidosis - treated with IV antibiotics, will continue - follow cultures acute CHF exacerbation - patient appears in volume overload on chest CT there is also possible evidence for pneumonia - has elevated BNP, but clinically does not appear to be in volume overload Discussed with Cardiology and Nephro-continue dialysis, optimize fluid status. pneumonia - patient has leukocytosis, febrile, lactic acidosis - with evidence of atypical infection on chest CT - will treat with IV antibiotics - follow cultures, respiratory panel - COVID-19 negative,moniter closely respirtory status. UTI - as evidence of cystitis on CT of the abdomen - pending UA - patient will be treated with IV antibiotics for above reasons therefore should be covered - will straight cath for urine this patient didreport that he produces urine diabetes - continue home glargine - will add low-dose sliding scale insulin - diabetic diet P AF - continue Eliquis and carvedilol, stop amio DVT prophylaxis:? Eliquis inpatient need : chf ,pneumonia,uti Quality Stroke Does the patient have a stroke diagnosis?: No VTE Prior VTE?: No VTE Risk Level:: Medical - moderate - high VTE Device Contraindication: Treatment Not Indicated VTE Drug Contraindication: N/A - Med Ordered
[2022-02-21 12:29] LABS: Magnesium 2.1 mg/dL (1.6-2.6)
[2022-02-21 15:24] LABS: Glucose, Whole Blood 157 mg/dL (60-115)
[2022-02-21 15:32] VITALS: BP 111/58; PULSE 57; RESP 18; O2SAT 97
[2022-02-21 19:09] VITALS: BP 126/65; PULSE 64; RESP 19; TEMP 36.7; O2SAT 96
[2022-02-21 19:49] LABS: Glucose, Whole Blood 176 mg/dL (60-115)
[2022-02-21] MEDS: Azithromycin 500 MG in 0.9 % Sodium Chloride 250 ML 125 MG IV (20:12)
[2022-02-21 23:31] VITALS: BP 164/81; PULSE 69; RESP 18; TEMP 37.7; O2SAT 93
[2022-02-22] MEDS: vancomycin HCL 1,000 MG in 0.9 % Sodium Chloride 250 ML 270 MG IV (00:45)
[2022-02-22] MEDS: Acetaminophen 325 MG TABLET 650 MG PO (01:52)
[2022-02-22 03:27] VITALS: BP 122/60; PULSE 61; RESP 18; TEMP 36.3; O2SAT 97
[2022-02-22 05:48] LABS: Hematocrit 23.5 % (42.0-52.0); Hemoglobin 7.7 g/dl (14.0-18.0); Mean Corpuscular HGB Conc 32.8 g/dl (31.0-36.0); Mean Corpuscular Hemoglobin 29.4 pg (27.0-33.0); Mean Corpuscular Volume 89.7 fL (80.0-98.0); Mean Platelet Volume 8.8 fL (9.4-12.4); Platelet Count 210 X10*3/uL (160-400); Red Blood Count 2.62 X10*6/uL (4.60-5.80); Red Cell Distribution Width 15.4 % (11.0-16.0); White Blood Count 14.3 X10*3/uL (4.8-10.8)
[2022-02-22 06:19] LABS: Anion Gap 17 (12-20); Blood Urea Nitrogen 30 mg/dL (9-16); Calcium 7.6 mg/dL (8.4-10.2); Carbon Dioxide 25 mmol/L (22-29); Chloride 92 mmol/L (96-108); Creatinine Clr Calc Pharmacy 15.1; Estimated Glomerular Filt Rate 13; Glucose Random 90 mg/dL (60-115); Potassium 3.9 mmol/L (3.3-5.1); Sodium 130 mmol/L (135-145)
[2022-02-22 06:45] VITALS: BP 149/73; PULSE 57; RESP 18; TEMP 36.1; O2SAT 96
[2022-02-22 07:00] LABS: Glucose, Whole Blood 85 mg/dL (60-115)
--- NOTE | 2022-02-22 07:00 | CA_ITS ---
Transthoracic Echocardiogram Patient (Last, First, Middle): Liang Nunez, Gender: Male Date of : 1955 Age: 67 Procedure Date: 02/22/2022 Procedure Type: Transthoracic Echocardiogram Location: S3E Height: 162.56 cm Weight: 68.49 kg BSA: 1.74 m2 Heart Rate: 57 bpm BP: 149 / 73 mmHg Chemist Organic: SB Referring MD: Manuel Villegas MD Symptoms: chf Study Quality: Adequate ECG Rhythm: Bradycardia Conclusions: - Normal left ventricular cavity size. There is normal left ventricular wall thickness. The left ventricular systolic function is mild to moderately decreased. - E/E prime ratio is >15, consistent with elevated filling pressures. Significantly reduced global longitudinal strain. - The inferoseptal wall and inferior wall are akinetic. - Mildly increased right ventricular cavity size. There is borderline right ventricular systolic function. Findings Left Ventricle Normal left ventricular cavity size. There is normal left ventricular wall thickness. The left ventricular systolic function is mild to moderately decreased. The visually estimated ejection fraction is between 35-40%. There is evidence of regional wall motion abnormalities. Abnormal diastolic function is noted. Spectral Doppler is indicative of a pseudonormal filling pattern. E/E prime ratio is >15, consistent with elevated filling pressures. Significantly reduced global longitudinal strain. Wall Motion Rest Echo Findings The inferoseptal wall and inferior wall are akinetic. Right Ventricle Mildly increased right ventricular cavity size. There is borderline right ventricular systolic function. Atria The left atrium is moderately dilated. The right atrium is normal in size. Aortic Valve There is a normal trileaflet aortic valve. There is mild calcification of the aortic valve. There is no aortic valve stenosis. There is no aortic valve regurgitation. Mitral Valve Normal mitral valve structure and function. There is trace mitral valve regurgitation. There is no mitral valve stenosis. Pulmonic Valve Normal pulmonic valve structure and function. There is trace pulmonic valve regurgitation. Tricuspid Valve Normal tricuspid valve structure and function. There is trace tricuspid valve regurgitation. Normal right atrial pressure. There is no evidence of pulmonary hypertension. Great Vessels All visible segments of the aorta are normal in size. The visualized portions of the pulmonary artery and branches are normal. Venous The inferior vena cava is normal in size and collapses greater than 50% with inspiration. Pericardium/Pleural There is no evidence of pericardial effusion. Prior Study Comparison Changes noted compared to prior study dated: 08/15/2020. Inferior wall motion abnormality as before. RV mildly dilated with borderline function. Measurements 2D Linear Measurements IVSd: 1.01 0.6-0.9/0.6-1.0 cm LVIDd: 5.41 3.9-5.3/4.2-5.9 cm LVIDd Index: 3.11 2.4-3.2/2.2-3.1 cm/m2 LVIDs: 4.12 2.0-3.6 cm LVPWd: 1.03 0.7-1.1 cm LA Diam: 3.90 2.7-3.8/3.0-4.0 cm LAIDs Index: 2.24 1.5-2.3 cm/m2 LV Mass: 265.36 67-162/88-224 g LV Mass Index: 152.51 43-95/49-115 g/m2 LVOT Diam: 2.00 3.0+(-)1.3 cm 2D Systolic Function EF 4C: 36.50 >55% EF 2C: 40.10 >55% EF BiP: 39.50 >55% Mitral Valve MV Pk E: 1.07 MV PK A: 0.83 MV Decel Time: 192.00 E/A: 1.30 E'Lateral: 6.83 E'Medial: 3.90 E/E' Med: 27.40 E/E' Lat: 15.70 PHT: 56.00 MVA PHT: 3.93 Decel [place]: 5.54 Aortic Valve AoV Pk Luiz: 1.34 AoV Mn Luiz: 0.99 AoV VTI: 0.30 AoV Pk Grad: 7.00 Aov Mn Grad: 4.00 YAYA Cont.VTI: 2.06 LVOT LVOT Pk Luiz: 1.00 LVOT Mn Luiz: 0.68 LVOT VTI: 0.20 LVOT Pk Grad: 4.00 LVOT Mn Grad: 2.00 LVOT Diam: 2.00 LVOT Area: 3.14 Diastolic Function MV Pk E: 1.07 MV Pk A: 0.83 E/A: 1.30 E'Medial: 3.90 E/E' Med: 27.40 E' Laterial: 6.83 E/E' Lat: 15.70 Right Ventricle TAPSE (mm): 18.50 TVS' Luiz: 9.00 Tricuspid Valve TR Pk Luiz: 2.65 TR Pk Grad: 28.00 RA Press: 8.00 RVSP: 36.00 Great Vessels Aorta Sinus of Valsalva: 3.50 2.0-3.[address] [place]: 2.90 1.7-3.4 cm Ao Asc: 3.20 2.1-3.4 cm Pulmonary Veins Pulm Vein S/D 1.10 Pulmonary Valve PV Pk Luiz: 0.95 Peak PV Grad: 4.00 Updated in Other Vendor System with Status of Final Wenceslao Segura MD electronically signed on 02/22/2022 3:05:31 PM with status of Final
[2022-02-22] MEDS: Bumetanide 1 MG/4 ML VIAL IVPUSH ×2 (09:52→18:51)
[2022-02-22] MEDS: Aspirin Enteric Coated 81 MG TABLET.DR PO (09:53)
[2022-02-22] MEDS: Apixaban 5 MG TABLET PO ×2 (09:53→20:16)
[2022-02-22] MEDS: Cholecalciferol (Vitamin D3) 25 MCG TABLET 50 MCG PO (09:53)
[2022-02-22] MEDS: Atorvastatin Calcium 80 MG TABLET PO (09:53)
[2022-02-22] MEDS: 0.9 % Sodium Chloride Flush 3 ML SYRINGE IVFLUSH ×3 (09:53→20:17)
--- NOTE | 2022-02-22 10:13 | MHC.CLN ---
NUTRITION DIET CHANGED FOR DIALYSIS PARAMETERS. PATIENT WITH DM AND ESRD AND ON HEMODIALYSIS. DIET=DIABETIC 2000 KCALS, 2 GRAM SODIUM, LOW PHOSPHORUS, LOW POTASSIUM.
--- NOTE | 2022-02-22 11:02 | P.PNNP_ITS ---
Subjective Subjective Date of Service: 02/23/22 Interval history: sepsis, uti ,pneumonia, hypomagnesemia Events noted Physical Exam Vital Signs: Vital Signs: Last Vital Signs Temp 97 F 02/22/22 06:45 Pulse 57 02/22/22 06:45 Resp 18 02/22/22 06:45 BP 149/73 H 02/22/22 06:45 Pulse Ox 96 02/22/22 06:45 O2 Del Method 02/22/22 06:45 O2 Flow Rate 2 02/22/22 06:45 Oxygen Flow Rate 6 02/20/22 16:45 BMI result Body Mass Index 22.3 Const: General: cooperative, comfortable, no acute distress, alert and awake Nutritional Appearance: well nourished Orientation/consciousness: patient oriented x3 Limitations: no limitations HEENT: Head: Yes normal to inspection and Yes atraumatic Ears: hearing grossly normal bilaterally and external ears normal General nose exam: Normal external nose present, no nasal discharge noted and no epistaxis Face and sinus: Yes normal facial exam, No abrasion and No laceration Mouth: Normal oral and palatal mucosa present, no drooling and no muffled voice Eyes: General: appearance normal, both eyes and all related structures Periorbital: periorbital findings normal Eyelids: Yes eyelids normal Conjunctivae: conjunctivae normal Pupils: Equal, round and reactive pupils present EOM: EOMs intact bilaterally Neck: Neck: Yes normal visual inspection, Yes full ROM and Yes no lymphadenopathy Chest: Chest palpation & inspection: normal inspection of the chest Resp: Effort & Inspection: normal respiratory effort, able to speak in complete sentences, Actively coughing and labored Auscultation: crackles bilateral at the base Cardio: Palpation: normal PMI Rate: regular rate Rhythm: regular rhythm Heart sounds: S1 normal heart sound present, S2 normal heart sound present, no gallops, no murmurs and no rubs GI: Inspection: Yes normal to inspection Palpation (GI): Soft to palpation Auscultation: normal bowel sounds Skin: General skin exam: no rashes or lesions noted Neuro: General: patient oriented x3 and moves all extremities Cranial nerves: Yes Equal, round and reactive pupils present Cognition (Neuro): normal cognition Motor exam (neuro): 5/5 motor strength present throughout Sensory Exam: Normal double simultaneous stimulation for sensation Coordination: [id number] test normal Extrem: General: Yes normal to inspection, Yes full ROM, Yes capillary refill normal and Yes no pedal edema Psych: Appearance: grossly normal Mental Status: mental status grossly normal Affect: normal affect Attitude: cooperative Thought process: Normal thought process present Thought content: Normal thought content present Insight: Good insight present (Psych) Objective Data Labs CBC & Chem 7: 02/23/22 05:18 02/23/22 05:18 Labs: Laboratory Results - last 24 hr 02/21/22 02/21/22 02/21/22 05:44 11:09 15:17 WBC RBC Hgb Hct MCV MCH MCHC RDW Plt Count MPV Absolute Nucleated RBC Nucleated RBC % (auto) Sodium Potassium Chloride Carbon Dioxide Anion Gap BUN Creatinine Estim Creat Clear Calc Estimated GFR POC Glucose 197 H 157 H Random Glucose Calcium Magnesium 2.1 02/21/22 02/22/22 02/22/22 19:11 05:20 05:20 WBC 14.3 H RBC 2.62 L Hgb 7.7 L Hct 23.5 L MCV 89.7 MCH 29.4 MCHC 32.8 RDW 15.4 Plt Count 210 MPV 8.8 L Absolute Nucleated RBC 0.000 Nucleated RBC % (auto) 0.0 Sodium 130 L Potassium 3.9 Chloride 92 L Carbon Dioxide 25 Anion Gap 17 BUN 30 H D Creatinine 4.46 H* Estim Creat Clear Calc 15.1 Estimated GFR 13 POC Glucose 176 H Random Glucose 90 D Calcium 7.6 L Magnesium 02/22/22 06:44 WBC RBC Hgb Hct MCV MCH MCHC RDW Plt Count MPV Absolute Nucleated RBC Nucleated RBC % (auto) Sodium Potassium Chloride Carbon Dioxide Anion Gap BUN Creatinine Estim Creat Clear Calc Estimated GFR POC Glucose 85 Random Glucose Calcium Magnesium Microbiology Microbiology Results: Microbiology 02/20/22 17:33 Blood - Venous Blood Culture - Preliminary Prelim: GPC Gram Stain only 02/21/22 07:39 Urine Catheterized - Straight Catheter Urine Culture - Preli minary No growth to date. 02/20/22 18:09 Blood - Venous Blood Culture - Preliminary No growth after 24 hours. Procedures Date of Service Date of Service: 02/22/22 Assessment & Plan Assessment and plan (1) Type 2 diabetes mellitus with unspecified complications: (2) Essential hypertension: (3) ESRD (end stage renal disease) on dialysis: Plan 67-year-old male with past medical history of ESRD on dialysis, CHF, presents the hospital with what not feeling well found to have multiple acute medical issues ESRD On HD TTS Will dialyze today and remove fluid as tolerated to see if faina respiratory status improvs Time Spent With Patient Time: Total time spent is greater than 50% in coordination of care (as documented) at patient's floor/unit and/or counseling patient: Progress Note: Quality Stroke Does the patient have a stroke diagnosis?: No
[2022-02-22 11:05] VITALS: BP 130/71; PULSE 55; RESP 18; TEMP 36.6; O2SAT 99
[2022-02-22] MEDS: carvediloL 3.125 MG TABLET PO ×2 (11:09→20:16)
[2022-02-22 11:18] LABS: Glucose, Whole Blood 180 mg/dL (60-115)
[2022-02-22] MEDS: Insulin Lispro 100 UNIT/ML 3 ML VIAL SUBCUT ×2 (11:58→20:17)
--- NOTE | 2022-02-22 12:14 | CONS_ITS ---
DATE OF SERVICE: 02/21/2022 REASON FOR CONSULTATION: I was called to see this patient to assist in management of the patient's dialysis requirements. HISTORY OF PRESENT ILLNESS: To summarize, Liang is well known to us. He is a 67-year-old man with history of ESRD on dialysis Tuesday, , Tuesday. He had dialysis prior to admission. He comes in because he was not feeling well. He is currently being evaluated for the same. He has been compliant with his dialysis regimen. He is on the same treatments. His ongoing medical problems include history of ESRD on maintenance dialysis 3 times a week, coronary artery disease, hypertension, paroxysmal atrial fibrillation, diabetes mellitus, history of congestive heart failure with preserved ejection fraction. FAMILY HISTORY: Noncontributory to admission. His father is diseased. Mother had diabetes and hypertension. PAST SURGICAL HISTORY: Includes cardiac catheterization in 2020, history of colon resection. SOCIAL HISTORY: No history of any smoking at present. ALLERGIES: NO KNOWN DRUG ALLERGIES. MEDICATIONS: At home included amiodarone 20 mg, apixaban, aspirin, atorvastatin, Bumex 1 mg b.i.d., carvedilol, insulin. All the current medications were reviewed. REVIEW OF SYSTEMS: Positive for feeling weak. He did have some shortness of breath, which is improved. No cough. No chest pain. No nausea or vomiting, abdominal or constipation. No urinary symptoms. No fever. No rash. PHYSICAL EXAMINATION: VITAL SIGNS: Liang appears comfortable, not in distress. NECK: Supple. No JVD. LUNGS: Scattered rhonchi. HEART: S1, S2 regular. No gallop or rub. ABDOMEN: Soft and nontender. EXTREMITIES: No edema. No clubbing. He has a PermCath on the left side of the chest. VITAL SIGNS: Blood pressure was 104/58, pulse 56. LABORATORY DATA: Hemoglobin 8.4, WBC 20.1. Sodium 136, potassium 4.0, BUN 15, creatinine 3.3, magnesium 1.4, calcium 7.9. Troponin I was 480. Albumin 3.2. IMPRESSION: A 67-year-old man with end-stage renal disease, presenting with generalized weakness and some shortness of breath. From a renal standpoint, Liang was well dialyzed. He has no signs or symptoms of uremia. The fluid status seems optimal. He does have mild anemia due to underlying chronic disease. PLAN: To proceed with hemodialysis as per protocol. I will dialysis him on Tuesday, , Tuesday as per schedule and remove fluid as tolerated. His hemoglobin is to be optimized. I will restart him on Epogen to maintain hemoglobin around 10 to 11 g/dL. Mild hypercalcemia, secondary hyperparathyroidism. I will check the intact PTH and start him on vitamin D3 analogs as needed. Concur with other medical management. We will follow him along with the team. Vaibhav Ronquillo MD BPA/MODL / [id number]
--- NOTE | 2022-02-22 13:35 | PM.PNCARD ---
Subjective Subjective Date of Service: 02/22/22 Interval history: Seen and examined at bedside. Denying chest discomfort or shortness of breath. Physical Exam Vital Signs: Last Vital Signs Temp 98 F 02/22/22 11:05 Pulse 55 02/22/22 11:05 Resp 18 02/22/22 11:05 BP 130/71 02/22/22 11:05 Pulse Ox 99 02/22/22 11:05 O2 Del Method 02/22/22 11:05 O2 Flow Rate 2 02/22/22 11:05 Oxygen Flow Rate 6 02/20/22 16:45 BMI result Body Mass Index 22.3 GENERAL APPEARANCE: in no acute distress, pleasant. NECK: no carotid bruit, + jugular venous distention. SKIN: no suspicious lesions, warm and dry. HEART: no murmurs, regular rate and rhythm. LUNGS: Left lung crackles anteriorly. ABDOMEN: soft, nontender. EXTREMITIES: no edema. PERIPHERAL PULSES: equal. NEUROLOGIC: No gross deficits, AAO X 3 Objective Labs and Meds Result diagrams: 02/22/22 05:20 02/22/22 05:20 Lab results: Laboratory Results - last 24 hr 02/21/22 02/21/22 02/22/22 15:17 19:11 05:20 WBC 14.3 H RBC 2.62 L Hgb 7.7 L Hct 23.5 L MCV 89.7 MCH 29.4 MCHC 32.8 RDW 15.4 Plt Count 210 MPV 8.8 L Absolute Nucleated RBC 0.000 Nucleated RBC % (auto) 0.0 Sodium Potassium Chloride Carbon Dioxide Anion Gap BUN Creatinine Estim Creat Clear Calc Estimated GFR POC Glucose 157 H 176 H Random Glucose Calcium 02/22/22 02/22/22 02/22/22 05:20 06:44 11:05 WBC RBC Hgb Hct MCV MCH MCHC RDW Plt Count MPV Absolute Nucleated RBC Nucleated RBC % (auto) Sodium 130 L Potassium 3.9 Chloride 92 L Carbon Dioxide 25 Anion Gap 17 BUN 30 H D Creatinine 4.46 H* Estim Creat Clear Calc 15.1 Estimated GFR 13 POC Glucose 85 180 H Random Glucose 90 D Calcium 7.6 L Progress Note: A&P Assessment and plan (1) Acute diastolic (congestive) heart failure: Status: Acute (2) Atherosclerotic cardiovascular disease: Status: Acute Plan 67-year-old gentleman with complex multivessel coronary disease based on cardiac catheterization from July 2020, hemodialysis and noncompliance. He has not followed up with our office for long time. He is presenting with diastolic heart failure. Clinically he looks mildly overloaded currently with mild JVD. He is on hemodialysis and will need optimization of volume status. As per Dr. Abarca's note amiodarone can be stopped because he has not been following closely and will need close follow-up for this medication. Continue Eliquis for paroxysmal atrial fibrillation. Conservative management for coronary disease given poor compliance with medications as well as insight. Thank you for allowing me to participate in the care of your patient. Please feel free to contact me if you have any questions. Time Spent With Patient Time: Total time spent is greater than 50% in coordination of care (as documented) at patient's floor/unit and/or counseling patient: Progress Note: Quality Stroke Does the patient have a stroke diagnosis?: No Procedures Date of Service Date of Service: 02/22/22
--- NOTE | 2022-02-22 14:55 | HO.PM.IMPN ---
Subjective Subjective Date of Service: 02/22/22 Interval History: sepsis, uti ,pneumonia, hypomagnesemia Review of Systems still sob with talkin, has cough Physical Exam Vital Signs: Vital Signs: Last Vital Signs Temp 98 F 02/22/22 11:05 Pulse 55 02/22/22 11:05 Resp 18 02/22/22 11:05 BP 130/71 02/22/22 11:05 Pulse Ox 99 02/22/22 11:05 O2 Del Method 02/22/22 11:05 O2 Flow Rate 2 02/22/22 11:05 Oxygen Flow Rate 6 02/20/22 16:45 BMI result Body Mass Index 22.3 Appearance: Alert.? Oriented X3.? not in distress.? cvs: rrr, [id number] , no murmur res: seems diminshed at bases , few rhonchii abd: no rebound or guarding ,nt, bs present. ext pulses present , no cyanosis. neuro: axo3 , nonfocal. Objective Data Active Medications Acetaminophen (Acetaminophen 325 Mg Tablet) 650 mg PO Q6H PRN PRN Reason: Pain, Mild (Pain Scale 1-3) Last Admin: 02/22/22 01:52 Dose: 650 mg Documented By: RAE Apixaban (Apixaban 5 Mg Tablet) 5 mg PO BID [facility] Last Admin: 02/22/22 09:53 Dose: 5 mg Documented By: SOHAIL Aspirin (Aspirin Enteric Coated 81 Mg Tablet.) 81 mg PO DAILY [facility] Last Admin: 02/22/22 09:53 Dose: 81 mg Documented By: SOHAIL Atorvastatin Calcium (Atorvastatin Calcium 80 Mg Tablet) 80 mg PO DAILY [facility] Last Admin: 02/22/22 09:53 Dose: 80 mg Documented By: SOHAIL Bumetanide (Bumetanide 1 Mg/4 Ml Vial) 1 mg IVPUSH BID@0900,1700 [facility]; Protocol Last Admin: 02/22/22 09:52 Dose: 1 mg Documented By: SOHAIL Carvedilol (Carvedilol 3.125 Mg Tablet) 3.125 mg PO BID [facility]; Protocol Last Admin: 02/22/22 11:09 Dose: 3.125 mg Documented By: SOHAIL Dextrose (Dextrose 50 % 25 Gm/50 Ml Syringe) 25 gm IVPUSH Q15M PRN; Protocol PRN Reason: per Hypoglycemia Standing Ord. Docusate Sodium (Docusate Sodium 100 Mg Capsule) 100 mg PO DAILY PRN PRN Reason: Constipation Glucose (Glucose Gel 15 Gm Gel..Gram.) 15 gm PO Q15M PRN; Protocol PRN Reason: per Hypoglycemia Standing Ord. Ceftriaxone Sodium 1 gm/ (Sodium Chloride) 50 mls @ 100 mls/hr IV Q24H [facility] Last Infusion: 02/21/22 22:45 Dose: 0 mls/hr Documented By: RAE Azithromycin 500 mg/ Sodium (Chloride) 250 mls @ 125 mls/hr IV Q24H [facility] Last Infusion: 02/21/22 22:28 Dose: 0 mls/hr Documented By: RAE Insulin Glargine (Insulin Glargine,Hum.Rec.Anlog 100 Unit/Ml 10 Ml Vial) 15 unit SUBCUT DAILY [facility] Last Admin: 02/22/22 10:02 Dose: Not Given Documented By: SOHAIL Non-Admin Reason: Physician Approved Insulin Human Lispro (Insulin Lispro 100 Unit/Ml 3 Ml Vial) 0 unit SUBCUT QIDACHS [facility]; Protocol Last Admin: 02/22/22 11:58 Dose: 2 unit Documented By: SOHAIL Ondansetron HCl (Ondansetron Hcl 4 Mg/2 Ml Vial) 4 mg IVPUSH Q8H PRN PRN Reason: Nausea and Vomiting Pharmacy Consult (Consult Rx Perform Med Rec) 1 each MISCELLANE ONCE PRN PRN Reason: Consult order Pharmacy Consult (Consult Rx Vancomycin Dosing) 1 each MISCELLANE DAILY PRN PRN Reason: Consult order Sodium Chloride (0.9 % Sodium Chloride Flush 3 Ml Syringe) 3 ml IVFLUSH QSHIFT [facility] Last Admin: 02/22/22 09:53 Dose: 3 ml Documented By: SOHAIL Vitamin D (Cholecalciferol (Vitamin D3) 25 Mcg Tablet) 50 mcg PO DAILY [facility] Last Admin: 02/22/22 09:53 Dose: 50 mcg Documented By: SOHAIL Labs CBC & Chem 7: 02/22/22 05:20 02/22/22 05:20 Labs: Laboratory Results - last 24 hr 02/21/22 02/21/22 02/22/22 15:17 19:11 05:20 MCV 89.7 MCH 29.4 MCHC 32.8 RDW 15.4 Plt Count 210 MPV 8.8 L Absolute Nucleated RBC 0.000 Nucleated RBC % (auto) 0.0 Anion Gap Estim Creat Clear Calc Estimated GFR POC Glucose 157 H 176 H Random Glucose Calcium 02/22/22 02/22/22 02/22/22 05:20 06:44 11:05 MCV MCH MCHC RDW Plt Count MPV Absolute Nucleated RBC Nucleated RBC % (auto) Anion Gap 17 Estim Creat Clear Calc 15.1 Estimated GFR 13 POC Glucose 85 180 H Random Glucose 90 D Calcium 7.6 L Microbiology Microbiology Results: Microbiology 02/20/22 17:33 Blood Culture - Preliminary Blood - Venous Prelim: GPC Gram Stain only 02/21/22 07:39 Urine Culture - Preliminary Urine Catheterized - Straight Catheter No growth to date. 02/20/22 18:09 Blood Culture - Preliminary Blood - Venous No growth after 24 hours. Assessment and Plan (1) UTI (urinary tract infection): Status: Acute (2) Pneumonia: Status: Acute (3) Sepsis: Status: Acute Plan 67-year-old male with past medical history of ESRD on dialysis, CHF, presents the hospital with what not feeling well found to have multiple acute medical issues ?sepsis- secondary to pneumonia versus UTI - has leukocytosis improving, became febrile in the ED, and has lactic acidosis - treated with IV antibiotics, will continue - follow cultures ?acute CHF exacerbation(HfpEf): - patient appears in volume overload on chest CT there is also possible evidence for pneumonia - has elevated BNP, but clinically does not appear to be in volume overload Discussed with Cardiology and Nephro-continue dialysis, optimize fluid status. ? ?pneumonia - patient has leukocytosis, febrile, lactic acidosis - with evidence of atypical infection on chest CT - will treat with IV antibiotics - follow cultures, respiratory panel - COVID-19 negative,moniter closely respirtory status. UTI - as evidence of cystitis on CT of the abdomen - pending UA - patient will be treated with IV antibiotics for above reasons therefore should be covered - will straight cath for urine this patient didreport that he produces urine ?diabetes - continue home glargine - will add low-dose sliding scale insulin - diabetic diet P AF - continue Eliquis and carvedilol, stop amio due to lacking of close followup. DVT prophylaxis:? Eliquis inpatient need : chf ,pneumonia,uti Quality Stroke Does the patient have a stroke diagnosis?: No VTE Prior VTE?: No VTE Risk Level:: Medical - moderate - high VTE Device Contraindication: Treatment Not Indicated VTE Drug Contraindication: N/A - Med Ordered
[2022-02-22 16:53] LABS: Glucose, Whole Blood 119 mg/dL (60-115)
[2022-02-22 17:37] LABS: Vancomycin Random 10.3 mcg/mL (15-20)
[2022-02-22 18:52] VITALS: BP 160/79; PULSE 62; RESP 16; TEMP 35.9; O2SAT 94
[2022-02-22] MEDS: vancomycin HCL 500 MG in 0.9 % Sodium Chloride 100 ML 110 MG IV (18:52)
[2022-02-22] MEDS: Azithromycin 500 MG in 0.9 % Sodium Chloride 250 ML 125 MG IV (20:17)
[2022-02-22 20:24] LABS: Glucose, Whole Blood 173 mg/dL (60-115)
[2022-02-22] MEDS: cefTRIAXone sodium 1 GM in 0.9 % Sodium Chloride 50 ML IV (22:20)
[2022-02-22 23:54] VITALS: BP 154/74; PULSE 62; RESP 17; TEMP 36.3; O2SAT 98
[2022-02-23 04:00] VITALS: BP 155/62; PULSE 62; RESP 17; TEMP 36.2; O2SAT 94
[2022-02-23 05:41] LABS: Hematocrit 24.5 % (42.0-52.0); Hemoglobin 7.9 g/dl (14.0-18.0); Mean Corpuscular HGB Conc 32.2 g/dl (31.0-36.0); Mean Corpuscular Volume 90.1 fL (80.0-98.0); Mean Platelet Volume 8.9 fL (9.4-12.4); Platelet Count 228 X10*3/uL (160-400); Red Blood Count 2.72 X10*6/uL (4.60-5.80); Red Cell Distribution Width 15.3 % (11.0-16.0); White Blood Count 13.5 X10*3/uL (4.8-10.8)
[2022-02-23 05:52] LABS: Anion Gap 15 (12-20); Blood Urea Nitrogen 24 mg/dL (9-16); Calcium 7.7 mg/dL (8.4-10.2); Carbon Dioxide 22 mmol/L (22-29); Chloride 96 mmol/L (96-108); Estimated Glomerular Filt Rate 16; Glucose Random 166 mg/dL (60-115); Potassium 4.1 mmol/L (3.3-5.1); Sodium 129 mmol/L (135-145)
[2022-02-23 08:00] LABS: Iron 51 mcg/dL (45-160); Percent Iron Saturation 27 % (15-50); Total Iron Binding Capacity 187 mcg/dL (228-428); Unsaturated Iron Binding 136 ug/dL
[2022-02-23 08:17] LABS: Vancomycin Random 12.7 mcg/mL (15-20)
--- NOTE | 2022-02-23 08:25 | P.CDIC_ITS ---
CDI Concurrent Query Documentation Clarification: PHYSICIAN'S DOCUMENTATION REQUEST Date of Query: 02/23/22 0825 Patient Name: Liang Nunez Admit Date: 02/20/22 Dear Doctor, A review of the medical record indicates additional documentation may be needed. Please review below and update the documentation accordingly. Clinical Indicators: The following diagnoses or signs and symptoms were noted in the patient record: Risk Factors/Clinical Indicators/Treatments Labs: 130 L 129 L IV fluids Based on the above, could you clarify in the Progress Notes the appropriate diagnosis, if significant, that supports the above abnormalities and additional evaluation, monitoring, and/or treatment rendered: * Hyponatremia or other etiology of lab findings * Labs indicate a diagnosis of (please specify) * Other (please specify) * Unable to determine Use of terms such as suspected, likely, concern for, or probable (associated with a specific diagnosis that is being evaluated, monitored, or treated as if it exists) are acceptable and can be coded in the inpatient setting, when documented at the time of discharge. Thank you, Bertha Chong [facility], CDIS Extension: [phone] Please use your independent medical judgment in providing your response. THIS QUERY IS PART OF THE PERMANENT MEDICAL RECORD Provider Response: Other Other Diagnosis: hyponatremia possible dilutional ( esrd)
[2022-02-23 08:35] LABS: Folate 3.6 ng/mL (> or = 4.0); Vitamin B12 346 pg/mL (200-900)
--- NOTE | 2022-02-23 08:39 | HE.PHANOTE ---
Patients pre dialysis level was 12.7, having dialysis now, changing dose to 1000 mg TUTHSA and order trough for 02/25@1600
--- NOTE | 2022-02-23 09:14 | W.PM.DNNEP ---
Subjective Subjective This patient was seen during dialysis. Interval history: sepsis, uti ,pneumonia, hypomagnesemia s/p HD yesterday 3L removed HD again today Physical Exam Vital Signs: Vital Signs: Last Vital Signs Temp 97.2 F 02/23/22 04:00 Pulse 62 02/23/22 04:00 Resp 17 02/23/22 04:00 BP 155/62 H 02/23/22 04:00 Pulse Ox 94 02/23/22 04:00 O2 Del Method 02/23/22 04:00 O2 Flow Rate 2 02/23/22 04:00 Oxygen Flow Rate 6 02/20/22 16:45 BMI result Body Mass Index 22.3 Const: General: cooperative, comfortable, no acute distress, alert and awake Nutritional Appearance: well nourished Orientation/consciousness: patient oriented x3 Limitations: no limitations HEENT: Head: Yes normal to inspection and Yes atraumatic Ears: hearing grossly normal bilaterally and external ears normal General nose exam: Normal external nose present, no nasal discharge noted and no epistaxis Face and sinus: Yes normal facial exam, No abrasion and No laceration Mouth: Normal oral and palatal mucosa present, no drooling and no muffled voice Eyes: General: appearance normal, both eyes and all related structures Periorbital: periorbital findings normal Eyelids: Yes eyelids normal Conjunctivae: conjunctivae normal Pupils: Equal, round and reactive pupils present EOM: EOMs intact bilaterally Neck: Neck: Yes normal visual inspection, Yes full ROM and Yes no lymphadenopathy Chest: Chest palpation & inspection: normal inspection of the chest Resp: Effort & Inspection: normal respiratory effort, able to speak in complete sentences, Actively coughing and labored Auscultation: crackles bilateral at the base Cardio: Palpation: normal PMI Rate: regular rate Rhythm: regular rhythm Heart sounds: S1 normal heart sound present, S2 normal heart sound present, no gallops, no murmurs and no rubs GI: Inspection: Yes normal to inspection Palpation (GI): Soft to palpation Auscultation: normal bowel sounds Skin: General skin exam: no rashes or lesions noted Neuro: General: patient oriented x3 and moves all extremities Cranial nerves: Yes Equal, round and reactive pupils present Cognition (Neuro): normal cognition Motor exam (neuro): 5/5 motor strength present throughout Sensory Exam: Normal double simultaneous stimulation for sensation Coordination: [id number] test normal Extrem: General: Yes normal to inspection, Yes full ROM, Yes capillary refill normal and Yes no pedal edema Psych: Appearance: grossly normal Mental Status: mental status grossly normal Affect: normal affect Attitude: cooperative Thought process: Normal thought process present Thought content: Normal thought content present Insight: Good insight present (Psych) Assessment & Plan Assessment and plan (1) Type 2 diabetes mellitus with unspecified complications: (2) Essential hypertension: (3) ESRD (end stage renal disease) on dialysis: Plan 67-year-old male with past medical history of ESRD on dialysis, CHF, presents the hospital with what not feeling well found to have multiple acute medical issues ESRD On HD TTS dialysis today and remove fluid as tolerated Optimize HCT- transfuse as needed Contin Epogen Time Spent With Patient Time: Total time spent is greater than 50% in coordination of care (as documented) at patient's floor/unit and/or counseling patient: Procedures Date of Service Date of Service: 02/23/22
--- NOTE | 2022-02-23 10:35 | HO.PM.IMPN ---
Subjective Subjective Date of Service: 02/23/22 Interval History: sepsis, uti ,pneumonia, hyponatremia ,anemia Review of Systems still sob with talkin, has cough Physical Exam Vital Signs: Vital Signs: Last Vital Signs Temp 97.2 F 02/23/22 04:00 Pulse 62 02/23/22 04:00 Resp 17 02/23/22 04:00 BP 155/62 H 02/23/22 04:00 Pulse Ox 94 02/23/22 04:00 O2 Del Method 02/23/22 04:00 O2 Flow Rate 2 02/23/22 04:00 Oxygen Flow Rate 6 02/20/22 16:45 BMI result Body Mass Index 22.3 Appearance: Alert.? Oriented X3.? not in distress.? cvs: rrr, [id number] , no murmur res: seems diminshed at bases , few rhonchii abd: no rebound or guarding ,nt, bs present. ext pulses present , no cyanosis. neuro: axo3 , nonfocal. Objective Data Active Medications Acetaminophen (Acetaminophen 325 Mg Tablet) 650 mg PO Q6H PRN PRN Reason: Pain, Mild (Pain Scale 1-3) Last Admin: 02/22/22 01:52 Dose: 650 mg Documented By: RAE Apixaban (Apixaban 5 Mg Tablet) 5 mg PO BID [facility] Last Admin: 02/22/22 20:16 Dose: 5 mg Documented By: RAE Aspirin (Aspirin Enteric Coated 81 Mg Tablet.) 81 mg PO DAILY [facility] Last Admin: 02/22/22 09:53 Dose: 81 mg Documented By: SOHAIL Atorvastatin Calcium (Atorvastatin Calcium 80 Mg Tablet) 80 mg PO DAILY [facility] Last Admin: 02/22/22 09:53 Dose: 80 mg Documented By: SOHAIL Bumetanide (Bumetanide 1 Mg/4 Ml Vial) 1 mg IVPUSH BID@0900,1700 [facility]; Protocol Last Admin: 02/22/22 18:51 Dose: 1 mg Documented By: SOHAIL Carvedilol (Carvedilol 3.125 Mg Tablet) 3.125 mg PO BID [facility]; Protocol Last Admin: 02/22/22 20:16 Dose: 3.125 mg Documented By: ARE Dextrose (Dextrose 50 % 25 Gm/50 Ml Syringe) 25 gm IVPUSH Q15M PRN; Protocol PRN Reason: per Hypoglycemia Standing Ord. Docusate Sodium (Docusate Sodium 100 Mg Capsule) 100 mg PO DAILY PRN PRN Reason: Constipation Epoetin Mann (Epoetin Mann 20,000 Unit/Ml Vial) 20,000 unit SUBCUT DIALYSIS X3 TUTHSA [facility] Glucose (Glucose Gel 15 Gm Gel..Gram.) 15 gm PO Q15M PRN; Protocol PRN Reason: per Hypoglycemia Standing Ord. Ceftriaxone Sodium 1 gm/ (Sodium Chloride) 50 mls @ 100 mls/hr IV Q24H [facility] Last Infusion: 02/22/22 22:50 Dose: 0 mls/hr Documented By: RAE Azithromycin 500 mg/ Sodium (Chloride) 250 mls @ 125 mls/hr IV Q24H [facility] Last Infusion: 02/22/22 22:17 Dose: 0 mls/hr Documented By: RAE Vancomycin HCl 1,000 mg/ (Sodium Chloride) 270 mls @ 270 mls/hr IV ONCE ONE Stop: 02/23/22 12:59 Vancomycin HCl 500 mg/ Sodium (Chloride) 110 mls @ 110 mls/hr IV TuThSa@1800 [facility] Insulin Glargine (Insulin Glargine,Hum.Rec.Anlog 100 Unit/Ml 10 Ml Vial) 15 unit SUBCUT DAILY [facility] Last Admin: 02/22/22 10:02 Dose: Not Given Documented By: SOHAIL Non-Admin Reason: Physician Approved Insulin Human Lispro (Insulin Lispro 100 Unit/Ml 3 Ml Vial) 0 unit SUBCUT QIDACHS [facility]; Protocol Last Admin: 02/23/22 07:52 Dose: Not Given Documented By: TRINIDAD Non-Admin Reason: Off unit: Dialysis Ondansetron HCl (Ondansetron Hcl 4 Mg/2 Ml Vial) 4 mg IVPUSH Q8H PRN PRN Reason: Nausea and Vomiting Pharmacy Consult (Consult Rx Perform Med Rec) 1 each MISCELLANE ONCE PRN PRN Reason: Consult order Pharmacy Consult (Consult Rx Vancomycin Dosing) 1 each MISCELLANE DAILY PRN PRN Reason: Consult order Sodium Chloride (0.9 % Sodium Chloride Flush 3 Ml Syringe) 3 ml IVFLUSH QSHIFT [facility] Last Admin: 02/22/22 20:17 Dose: 3 ml Documented By: RAE Vitamin D (Cholecalciferol (Vitamin D3) 25 Mcg Tablet) 50 mcg PO DAILY [facility] Last Admin: 02/22/22 09:53 Dose: 50 mcg Documented By: SOHAIL Labs CBC & Chem 7: 02/23/22 05:18 02/23/22 05:18 Labs: Laboratory Results - last 24 hr 02/22/22 02/22/22 02/22/22 11:05 16:48 16:52 MCV MCH MCHC RDW Plt Count MPV Absolute Nucleated RBC Nucleated RBC % (auto) Anion Gap Estim Creat Clear Calc Estimated GFR POC Glucose 180 H 119 H Random Glucose Calcium Iron TIBC % Saturation Unsat Iron Binding Vitamin B12 Folate Random Vancomycin 10.3 L Crossmatch 02/22/22 02/23/22 02/23/22 20:04 05:18 05:18 MCV 90.1 MCH 29.0 MCHC 32.2 RDW 15.3 Plt Count 228 MPV 8.9 L Absolute Nucleated RBC 0.000 Nucleated RBC % (auto) 0.0 Anion Gap 15 Estim Creat Clear Calc 18.0 Estimated GFR 16 POC Glucose 173 H Random Glucose 166 H D Calcium 7.7 L Iron 51 TIBC 187 L % Saturation 27 Unsat Iron Binding 136 Vitamin B12 Folate Random Vancomycin Crossmatch 02/23/22 02/23/22 02/23/22 05:18 05:18 07:32 MCV MCH MCHC RDW Plt Count MPV Absolute Nucleated RBC Nucleated RBC % (auto) Anion Gap Estim Creat Clear Calc Cancelled Estimated GFR Cancelled POC Glucose Random Glucose Calcium Iron TIBC % Saturation Unsat Iron Binding Vitamin B12 346 Folate 3.6 L Random Vancomycin 12.7 L Crossmatch 02/23/22 09:52 MCV MCH MCHC RDW Plt Count MPV Absolute Nucleated RBC Nucleated RBC % (auto) Anion Gap Estim Creat Clear Calc Estimated GFR POC Glucose Random Glucose Calcium Iron TIBC % Saturation Unsat Iron Binding Vitamin B12 Folate Random Vancomycin Crossmatch See Detail Microbiology Microbiology Results: Microbiology 02/21/22 07:39 Urine Culture - Final Urine Catheterized - Straight Catheter No growth. 02/20/22 17:33 Blood Culture - Final Blood - Venous Coag negative Staphylococcus 02/22/22 00:07 Blood Culture - Preliminary Blood - Venous No growth after 24 hours. 02/22/22 00:07 Blood Culture - Preliminary Blood - Venous No growth after 24 hours. 02/20/22 18:09 Blood Culture - Preliminary Blood - Venous No growth after 48 hours. Assessment and Plan (1) Acute diastolic (congestive) heart failure: Status: Acute (2) CHF exacerbation: Status: Acute (3) Pneumonia: Status: Acute (4) Anemia: Status: Acute Plan 67-year-old male with past medical history of ESRD on dialysis, CHF, presents the hospital with what not feeling well found to have multiple acute medical issues ?sepsis- secondary to pneumonia versus UTI - has leukocytosis improving, became febrile in the ED, and has lactic acidosis - treated with IV antibiotics, will continue - follow cultures ?acute CHF exacerbation(HfpEf): - patient appears in volume overload on chest CT there is also possible evidence for pneumonia - has elevated BNP, but clinically does not appear to be in volume overload Discussed with Cardiology and Nephro-continue dialysis, optimize fluid status. ? ?pneumonia - patient has leukocytosis, febrile, lactic acidosis - with evidence of atypical infection on chest CT - will treat with IV antibiotics - follow cultures, respiratory panel - COVID-19 negative,moniter closely respirtory status. UTI - as evidence of cystitis on CT of the abdomen - pending UA - patient will be treated with IV antibiotics for above reasons therefore should be covered - will straight cath for urine this patient didreport that he produces urine ?diabetes - continue home glargine - will add low-dose sliding scale insulin - diabetic diet P AF - continue Eliquis and carvedilol, stop amio due to lacking of close followup. esrd: on HD hyponatremia -possible dilutional sec to esrd, around 129 range,moniter bmp daily nephrology following anemia : normocytic ,chtonic h/h trending down d/w nephro-added 1 prbc also added anemia workup incluidng fobt. DVT prophylaxis:? Eliquis inpatient need : chf ,pneumonia,uti Quality Stroke Does the patient have a stroke diagnosis?: No VTE Prior VTE?: No VTE Risk Level:: Medical - moderate - high VTE Device Contraindication: Treatment Not Indicated VTE Drug Contraindication: N/A - Med Ordered
[2022-02-23] MEDS: Cholecalciferol (Vitamin D3) 25 MCG TABLET 50 MCG PO (10:46)
[2022-02-23] MEDS: 0.9 % Sodium Chloride Flush 3 ML SYRINGE IVFLUSH ×2 (10:46→16:46)
[2022-02-23] MEDS: Apixaban 5 MG TABLET PO ×2 (10:47→23:21)
[2022-02-23] MEDS: carvediloL 3.125 MG TABLET PO ×2 (10:47→23:21)
[2022-02-23] MEDS: Aspirin Enteric Coated 81 MG TABLET.DR PO (10:48)
[2022-02-23] MEDS: Insulin Glargine,Hum.rec.anlog 100 UNIT/ML 10 ML VIAL 15 UNIT SUBCUT (10:49)
[2022-02-23] MEDS: Acetaminophen 325 MG TABLET 650 MG PO (10:49)
[2022-02-23] MEDS: Atorvastatin Calcium 80 MG TABLET PO (10:49)
[2022-02-23] MEDS: Bumetanide 1 MG/4 ML VIAL IVPUSH ×2 (10:49→16:46)
[2022-02-23 11:20] VITALS: BP 153/70; PULSE 64; RESP 16; TEMP 36.3; O2SAT 96
[2022-02-23 11:37] LABS: Glucose, Whole Blood 152 mg/dL (60-115)
--- NOTE | 2022-02-23 12:07 | MHC.CM.PN ---
Addendum entered by Jeanne Murphy 02/23/22 12:18: PER ROUNDS DISCUSSION, PATIENT IS NOT YET MEDICALLY CLEARED FOR DISCHARGE R/T TREATMENT OF CHF, PNEUMONIA, AND UTI. 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 CM WILL CONTINUE TO FOLLOW FOR D/C PLANNING NEEDS. Original Note: CM RECEIVED A CALL FROM ALICIA [facility] [phone] REGARDING PATIENT'S SQUARING MACHINE OPERATOR SERVICES AND NEED FOR SURROGATE AND SQUARING MACHINE OPERATOR. CM MET WITH PATIENT WHO ASKED CM TO CONTACT HIS SISTER (SHABNAM) [phone] AND SQUARING MACHINE OPERATOR (GUNNER) [phone]. SHABNAM WAS EDUCATED ON WHAT IT MEANS TO BE A SQUARING MACHINE OPERATOR PROGRAM SURROGATE; SHE HAS AGREED TO BE PATIENT'S SURROGATE. GUNNER (SQUARING MACHINE OPERATOR) HAS AGREED TO CONTINUE TO BE PATIENT'S SQUARING MACHINE OPERATOR. SHABNAM AND GUNNER WERE INFORMED AFOREMENTIONED INFORMATION WILL BE PROVIDED TO ALICIA/[facility]. INFORMATION PROVIDED TO ALICIA. PER ALICIA, CURRENTLY PATIENT DOES NOT HAVE ANY ACTIVE SQUARING MACHINE OPERATOR HOURS BUT [facility] WILL HAVE HIM EVALUATED AND RECERTIFIED.
[2022-02-23] MEDS: vancomycin HCL 1,000 MG in 0.9 % Sodium Chloride 250 ML 270 MG IV (12:47)
[2022-02-23 14:50] LABS: OBS Int Ctl Valid YES; OBS1 NEGATIVE (NEGATIVE)
[2022-02-23] MEDS: ondansetron HCL 4 MG/2 ML VIAL IVPUSH (15:39)
[2022-02-23 16:00] VITALS: BP 159/68; PULSE 60; RESP 16; TEMP 35.9; O2SAT 97
[2022-02-23 16:03] LABS: Glucose, Whole Blood 278 mg/dL (60-115)
[2022-02-23] MEDS: Insulin Lispro 100 UNIT/ML 3 ML VIAL SUBCUT (16:47)
[2022-02-23 20:00] VITALS: BP 157/70; PULSE 57; RESP 16; TEMP 36.1; O2SAT 99
[2022-02-23 20:19] LABS: Glucose, Whole Blood 148 mg/dL (60-115)
[2022-02-23] MEDS: Azithromycin 500 MG in 0.9 % Sodium Chloride 250 ML 125 MG IV (23:21)
[2022-02-23 23:29] VITALS: BP 154/68; PULSE 57; RESP 17; TEMP 36.1; O2SAT 99
[2022-02-24] VITALS (8 sets, daily range): BP systolic 136–168; BP diastolic 59–81; PULSE 58–64; RESP 14–20; TEMP 35.9–36.6; O2SAT 92–98
[2022-02-24] MEDS: cefTRIAXone sodium 1 GM in 0.9 % Sodium Chloride 50 ML IV (00:04)
[2022-02-24 07:44] LABS: Glucose, Whole Blood 115 mg/dL (60-115)
[2022-02-24] MEDS: Cholecalciferol (Vitamin D3) 25 MCG TABLET 50 MCG PO (08:39)
[2022-02-24] MEDS: carvediloL 3.125 MG TABLET PO ×2 (08:40→21:59)
[2022-02-24] MEDS: Apixaban 5 MG TABLET PO ×2 (08:40→21:59)
[2022-02-24] MEDS: 0.9 % Sodium Chloride Flush 3 ML SYRINGE IVFLUSH ×3 (08:40→22:00)
[2022-02-24] MEDS: Aspirin Enteric Coated 81 MG TABLET.DR PO (08:40)
[2022-02-24] MEDS: Atorvastatin Calcium 80 MG TABLET PO (08:40)
[2022-02-24] MEDS: Bumetanide 1 MG/4 ML VIAL IVPUSH ×2 (08:40→17:07)
[2022-02-24] MEDS: Insulin Glargine,Hum.rec.anlog 100 UNIT/ML 10 ML VIAL 15 UNIT SUBCUT (08:41)
[2022-02-24 09:13] LABS: Hematocrit 33.1 % (42.0-52.0); Hemoglobin 10.8 g/dl (14.0-18.0); Mean Corpuscular HGB Conc 32.6 g/dl (31.0-36.0); Mean Corpuscular Hemoglobin 29.7 pg (27.0-33.0); Mean Corpuscular Volume 90.9 fL (80.0-98.0); Mean Platelet Volume 9.2 fL (9.4-12.4); Platelet Count 243 X10*3/uL (160-400); Red Blood Count 3.64 X10*6/uL (4.60-5.80); Red Cell Distribution Width 15.1 % (11.0-16.0); White Blood Count 11.8 X10*3/uL (4.8-10.8)
[2022-02-24 09:22] LABS: Anion Gap 17 (12-20); Blood Urea Nitrogen 23 mg/dL (9-16); Calcium 7.9 mg/dL (8.4-10.2); Carbon Dioxide 20 mmol/L (22-29); Chloride 97 mmol/L (96-108); Creatinine Clr Calc Pharmacy 18.6; Estimated Glomerular Filt Rate 17; Glucose Random 136 mg/dL (60-115); Sodium 130 mmol/L (135-145)
[2022-02-24 09:23] LABS: Creatinine Clr Calc Pharmacy 18.8; Estimated Glomerular Filt Rate 17
--- NOTE | 2022-02-24 11:23 | PM.PNNEP ---
Subjective Subjective Date of Service: 02/24/22 Interval history: sepsis, uti ,pneumonia, hyponatremia ,anemia Physical Exam Vital Signs: Vital Signs: Last Vital Signs Temp 97.7 F 02/24/22 07:14 Pulse 60 02/24/22 10:22 Resp 17 02/24/22 07:14 BP 168/81 H 02/24/22 10:22 Pulse Ox 98 02/24/22 10:22 O2 Del Method 02/24/22 07:14 O2 Flow Rate 2 02/24/22 07:14 Oxygen Flow Rate 6 02/20/22 16:45 BMI result Body Mass Index 22.3 Const: General: cooperative, comfortable, no acute distress, alert and awake Nutritional Appearance: well nourished Orientation/consciousness: patient oriented x3 Limitations: no limitations HEENT: Head: Yes normal to inspection and Yes atraumatic Ears: hearing grossly normal bilaterally and external ears normal General nose exam: Normal external nose present, no nasal discharge noted and no epistaxis Face and sinus: Yes normal facial exam, No abrasion and No laceration Mouth: Normal oral and palatal mucosa present, no drooling and no muffled voice Eyes: General: appearance normal, both eyes and all related structures Periorbital: periorbital findings normal Eyelids: Yes eyelids normal Conjunctivae: conjunctivae normal Pupils: Equal, round and reactive pupils present EOM: EOMs intact bilaterally Neck: Neck: Yes normal visual inspection, Yes full ROM and Yes no lymphadenopathy Chest: Chest palpation & inspection: normal inspection of the chest Resp: Effort & Inspection: normal respiratory effort, able to speak in complete sentences, Actively coughing and labored Auscultation: crackles bilateral at the base Cardio: Palpation: normal PMI Rate: regular rate Rhythm: regular rhythm Heart sounds: S1 normal heart sound present, S2 normal heart sound present, no gallops, no murmurs and no rubs GI: Inspection: Yes normal to inspection Palpation (GI): Soft to palpation Auscultation: normal bowel sounds Skin: General skin exam: no rashes or lesions noted Neuro: General: patient oriented x3 and moves all extremities Cranial nerves: Yes Equal, round and reactive pupils present Cognition (Neuro): normal cognition Motor exam (neuro): 5/5 motor strength present throughout Sensory Exam: Normal double simultaneous stimulation for sensation Coordination: [id number] test normal Extrem: General: Yes normal to inspection, Yes full ROM, Yes capillary refill normal and Yes no pedal edema Psych: Appearance: grossly normal Mental Status: mental status grossly normal Affect: normal affect Attitude: cooperative Thought process: Normal thought process present Thought content: Normal thought content present Insight: Good insight present (Psych) Objective Data Labs CBC & Chem 7: 02/24/22 08:20 02/24/22 08:20 Labs: Laboratory Results - last 24 hr 02/23/22 02/23/22 02/23/22 09:52 11:25 14:00 WBC RBC Hgb Hct MCV MCH MCHC RDW Plt Count MPV Absolute Nucleated RBC Nucleated RBC % (auto) Sodium Potassium Chloride Carbon Dioxide Anion Gap BUN Creatinine Estim Creat Clear Calc Estimated GFR POC Glucose 152 H Random Glucose Calcium Stool Occult Blood NEGATIVE Blood Type O Positive Antibody Screen NEGATIVE Crossmatch See Detail 02/23/22 02/23/22 02/24/22 15:58 20:15 07:31 WBC RBC Hgb Hct MCV MCH MCHC RDW Plt Count MPV Absolute Nucleated RBC Nucleated RBC % (auto) Sodium Potassium Chloride Carbon Dioxide Anion Gap BUN Creatinine Estim Creat Clear Calc Estimated GFR POC Glucose 278 H 148 H 115 Random Glucose Calcium Stool Occult Blood Blood Type Antibody Screen Crossmatch 02/24/22 02/24/22 02/24/22 08:20 08:20 08:20 WBC 11.8 H RBC 3.64 L D Hgb 10.8 L D Hct 33.1 L D MCV 90.9 MCH 29.7 MCHC 32.6 RDW 15.1 Plt Count 243 MPV 9.2 L Absolute Nucleated RBC 0.000 Nucleated RBC % (auto) 0.0 Sodium 130 L Potassium 4.0 Chloride 97 Carbon Dioxide 20 L Anion Gap 17 BUN 23 H Creatinine 3.62 H 3.58 H Estim Creat Clear Calc 18.6 18.8 Estimated GFR 17 17 POC Glucose Random Glucose 136 H Calcium 7.9 L Stool Occult Blood Blood Type Antibody Screen Crossmatch Microbiology Microbiology Results: Microbiology 02/22/22 00:07 Blood - Venous Blood Culture - Preliminary No growth after 48 hours. 02/22/22 00:07 Blood - Venous Blood Culture - Preliminary No growth after 48 hours. 02/21/22 07:39 Urine Catheterized - Straight Catheter Urine Culture - Final No growth. 02/20/22 17:33 Blood - Venous Blood Culture - Final Coag negative Staphylococcus 08/13/22 18:09 Blood - Venous Blood Culture - Preliminary No growth after 48 hours. Procedures Date of Service Date of Service: 02/24/22 Assessment & Plan Assessment and plan (1) Type 2 diabetes mellitus with unspecified complications: (2) Essential hypertension: (3) ESRD (end stage renal disease) on dialysis: Plan 67-year-old male with past medical history of ESRD on dialysis, CHF, presents the hospital with what not feeling well found to have multiple acute medical issues ESRD On HD TTS Optimize HCT- transfuse as needed Contin Epogen Time Spent With Patient Time: Total time spent is greater than 50% in coordination of care (as documented) at patient's floor/unit and/or counseling patient: Progress Note: Quality Stroke Does the patient have a stroke diagnosis?: No
[2022-02-24 11:48] LABS: Glucose, Whole Blood 229 mg/dL (60-115)
[2022-02-24] MEDS: Insulin Lispro 100 UNIT/ML 3 ML VIAL SUBCUT ×2 (11:55→17:06)
--- NOTE | 2022-02-24 12:47 | P.PNIM_ITS ---
Subjective Subjective Date of Service: 02/24/22 Interval History: the patient was seen and evaluated this morning Laying in bed, feels comfortable Reporting improvement in shortness of breath and cough No reported other overnight events. Systemic review: No fever, chills or weakness No chest pain, palpitation No shortness of breath or coughing No abdominal pain, nausea or vomiting No urinary symptoms No any rash or wounds Physical Exam Vital Signs: Vital Signs: Last Vital Signs Temp 97.1 F 02/24/22 12:00 Pulse 60 02/24/22 12:00 Resp 17 02/24/22 12:00 BP 136/65 02/24/22 12:00 Pulse Ox 92 02/24/22 12:00 O2 Del Method 02/24/22 12:00 O2 Flow Rate 2 02/24/22 07:14 Oxygen Flow Rate 6 02/20/22 16:45 BMI result Body Mass Index 22.3 Const: Other: Constitutional : Alert, interactive, not in distress Neck : Normal inspection, Supple Cardiovascular : RRR, no JVP, no lower extremity edema Respiratory : fair bilateral air entry, no crackles, wheezes or rhonchi Gastrointestinal: soft, lax, Normal bowel sounds, Non tender Skin : Warm, Dry Neurological : Alert & oriented x3, No focal deficit , CN 2-12 within normal Objective Data Active Medications Acetaminophen (Acetaminophen 325 Mg Tablet) 650 mg PO Q6H PRN PRN Reason: Pain, Mild (Pain Scale 1-3) Last Admin: 02/22/22 01:52 Dose: 650 mg Documented By: RAE Apixaban (Apixaban 5 Mg Tablet) 5 mg PO BID [facility] Last Admin: 02/24/22 08:40 Dose: 5 mg Documented By: TRINIDAD Aspirin (Aspirin Enteric Coated 81 Mg Tablet.) 81 mg PO DAILY [facility] Last Admin: 02/24/22 08:40 Dose: 81 mg Documented By: TRINIDAD Atorvastatin Calcium (Atorvastatin Calcium 80 Mg Tablet) 80 mg PO DAILY [facility] Last Admin: 02/24/22 08:40 Dose: 80 mg Documented By: TRINIDAD Bumetanide (Bumetanide 1 Mg/4 Ml Vial) 1 mg IVPUSH BID@0900,1700 [facility]; Protocol Last Admin: 02/24/22 08:40 Dose: 1 mg Documented By: TRINIDAD Carvedilol (Carvedilol 3.125 Mg Tablet) 3.125 mg PO BID [facility]; Protocol Last Admin: 02/24/22 08:40 Dose: 3.125 mg Documented By: TRINIDAD Dextrose (Dextrose 50 % 25 Gm/50 Ml Syringe) 25 gm IVPUSH Q15M PRN; Protocol PRN Reason: per Hypoglycemia Standing Ord. Docusate Sodium (Docusate Sodium 100 Mg Capsule) 100 mg PO DAILY PRN PRN Reason: Constipation Epoetin Mann (Epoetin Mann 20,000 Unit/Ml Vial) 20,000 unit SUBCUT TuThSa@1645 [facility] Last Admin: 02/23/22 18:06 Dose: 20,000 unit Documented By: TRINIDAD Glucose (Glucose Gel 15 Gm Gel..Gram.) 15 gm PO Q15M PRN; Protocol PRN Reason: per Hypoglycemia Standing Ord. Ceftriaxone Sodium 1 gm/ (Sodium Chloride) 50 mls @ 100 mls/hr IV Q24H [facility] Last Infusion: 02/24/22 01:49 Dose: 0 mls/hr Documented By: MARK Azithromycin 500 mg/ Sodium (Chloride) 250 mls @ 125 mls/hr IV Q24H [facility] Last Infusion: 02/24/22 01:49 Dose: 0 mls/hr Documented By: MARK Vancomycin HCl 500 mg/ Sodium (Chloride) 110 mls @ 110 mls/hr IV TuThSa@1800 [facility] Insulin Glargine (Insulin Glargine,Hum.Rec.Anlog 100 Unit/Ml 10 Ml Vial) 15 unit SUBCUT DAILY [facility] Last Admin: 02/24/22 08:41 Dose: 15 unit Documented By: TRINIDAD Insulin Human Lispro (Insulin Lispro 100 Unit/Ml 3 Ml Vial) 0 unit SUBCUT QIDACHS [facility]; Protocol Last Admin: 02/24/22 11:55 Dose: 4 unit Documented By: TRINIDAD Ondansetron HCl (Ondansetron Hcl 4 Mg/2 Ml Vial) 4 mg IVPUSH Q8H PRN PRN Reason: Nausea and Vomiting Last Admin: 02/23/22 15:39 Dose: 4 mg Documented By: TRINIDAD Pharmacy Consult (Consult Rx Perform Med Rec) 1 each MISCELLANE ONCE PRN PRN Reason: Consult order Pharmacy Consult (Consult Rx Vancomycin Dosing) 1 each MISCELLANE DAILY PRN PRN Reason: Consult order Sodium Chloride (0.9 % Sodium Chloride Flush 3 Ml Syringe) 3 ml IVFLUSH QSHIFT [facility] Last Admin: 02/24/22 08:40 Dose: 3 ml Documented By: TRINIDAD Vitamin D (Cholecalciferol (Vitamin D3) 25 Mcg Tablet) 50 mcg PO DAILY [facility] Last Admin: 02/24/22 08:39 Dose: 50 mcg Documented By: TRINIDAD Labs CBC & Chem 7: 02/24/22 08:20 02/24/22 08:20 Labs: Laboratory Results - last 24 hr 02/23/22 02/23/22 02/23/22 09:52 14:00 15:58 MCV MCH MCHC RDW Plt Count MPV Absolute Nucleated RBC Nucleated RBC % (auto) Anion Gap Estim Creat Clear Calc Estimated GFR POC Glucose 278 H Random Glucose Calcium Stool Occult Blood NEGATIVE Blood Type O Positive Antibody Screen NEGATIVE Crossmatch See Detail 02/23/22 02/24/22 02/24/22 20:15 07:31 08:20 MCV 90.9 MCH 29.7 MCHC 32.6 RDW 15.1 Plt Count 243 MPV 9.2 L Absolute Nucleated RBC 0.000 Nucleated RBC % (auto) 0.0 Anion Gap Estim Creat Clear Calc Estimated GFR POC Glucose 148 H 115 Random Glucose Calcium Stool Occult Blood Blood Type Antibody Screen Crossmatch 02/24/22 02/24/22 02/24/22 08:20 08:20 11:30 MCV MCH MCHC RDW Plt Count MPV Absolute Nucleated RBC Nucleated RBC % (auto) Anion Gap 17 Estim Creat Clear Calc 18.6 18.8 Estimated GFR 17 17 POC Glucose 229 H Random Glucose 136 H Calcium 7.9 L Stool Occult Blood Blood Type Antibody Screen Crossmatch Microbiology Microbiology Results: Microbiology 02/22/22 00:07 Blood Culture - Preliminary Blood - Venous No growth after 48 hours. 02/22/22 00:07 Blood Culture - Preliminary Blood - Venous No growth after 48 hours. 02/21/22 07:39 Urine Culture - Final Urine Catheterized - Straight Catheter No growth. Assessment and Plan (1) Anemia: Status: Acute (2) Acute diastolic (congestive) heart failure: Status: Acute (3) CHF exacerbation: Status: Acute (4) Pneumonia: Status: Acute (5) Sepsis: Status: Acute Plan 67-year-old male with past medical history of ESRD on dialysis, CHF, presents the hospital with what not feeling well found to have multiple acute medical issues ?sepsis, resolved secondary to pneumonia versus UTI WBCs trending down Continue IV antibiotic Negative blood cultures ?acute CHF exacerbation(HfpEf): Fluid overload on CT scan elevated BNP clinically does not appear to be in volume overload Discussed with Cardiology and Nephro-continue dialysis, optimize fluid status in dialysis ? pneumonia On room air evidence of atypical infection on chest CT Continue IV antibiotics Negative cultures, respiratory panel UTI evidence of cystitis on CT of the abdomen under still looking urine Negative urine culture diabetes type 2 continue home glargine low-dose sliding scale insulin diabetic diet PAF continue Eliquis and carvedilol stop amio due to lacking of close followup. esrd on HD Chronic hyponatremia -possible dilutional sec to esrd and fluid overload nephrology following anemia Secondary to ESRD Improved after 1 unit transfusion to 10 Negative occult blood Good iron stores Physical deconditioning Evaluated by PT, recommended SNF placement DVT prophylaxis Eliquis Patient will continue to need overnight hospital stay to continue IV antibiotics pending safe discharge plan to a facility. Quality Stroke Does the patient have a stroke diagnosis?: No VTE Prior VTE?: No VTE Risk Level:: Medical - moderate - high VTE Device Contraindication: Treatment Not Indicated VTE Drug Contraindication: N/A - Med Ordered
[2022-02-24 15:46] LABS: Glucose, Whole Blood 178 mg/dL (60-115)
--- NOTE | 2022-02-24 16:13 | MHC.CM.PN ---
RICCI spoke with Selene from [facility] [phone], she called to inform [facility] was having a case conference about patient as his LEG MAN hours have and he needs to be Evaluated for services. She reported Domonique is patient's Plant Maintenance Manager. She was informed Physical Therapy saw him and has recommended Short Term Rehab and referrals have been initiated. She reported she will let them know at the Case Conference. RICCI spoke with patient's sister/HCP Alysia [phone] about PT's recommendation for STR and provided her with STR choices based on dialysis need. She asked CM to place referrals to appropriate SNFs and keep her updated. Family informed referrals to [facility] have been initiated. Family visited patient and asked CM to update them. CM informed Alysia and siblings of referrals to [facility]. CM called Selene/ALFONSO updated of conversation with patient's family. Selene reported, Domonique, patient's [facility] Plant Maintenance Manager is in agreement of patient going to STR. They will evaluate patient, for LEG MAN services, once he is back home from rehab. Selene shared it could take up to 90 days to have patient evaluated for LEG MAN services but they may be able to expedite the evaluate.
[2022-02-24 19:56] LABS: Glucose, Whole Blood 148 mg/dL (60-115)
[2022-02-24] MEDS: Azithromycin 500 MG in 0.9 % Sodium Chloride 250 ML 125 MG IV (21:58)
[2022-02-25] VITALS: BP 166/86; PULSE 58; RESP 18; TEMP 36.9; O2SAT 94
[2022-02-25] MEDS: cefTRIAXone sodium 1 GM in 0.9 % Sodium Chloride 50 ML IV (00:25)
[2022-02-25 03:43] VITALS: BP 180/88; PULSE 66; RESP 18; TEMP 36.3; O2SAT 93
[2022-02-25 05:51] LABS: Hematocrit 30.8 % (42.0-52.0); Hemoglobin 10.1 g/dl (14.0-18.0); Mean Corpuscular HGB Conc 32.8 g/dl (31.0-36.0); Mean Corpuscular Hemoglobin 28.7 pg (27.0-33.0); Mean Corpuscular Volume 87.5 fL (80.0-98.0); Mean Platelet Volume 8.4 fL (9.4-12.4); Platelet Count 251 X10*3/uL (160-400); Red Blood Count 3.52 X10*6/uL (4.60-5.80); Red Cell Distribution Width 14.9 % (11.0-16.0); White Blood Count 10.3 X10*3/uL (4.8-10.8)
[2022-02-25 06:11] LABS: Anion Gap 18 (12-20); Blood Urea Nitrogen 34 mg/dL (9-16); Calcium 8.1 mg/dL (8.4-10.2); Carbon Dioxide 19 mmol/L (22-29); Chloride 99 mmol/L (96-108); Glucose Random 173 mg/dL (60-115); Potassium 3.9 mmol/L (3.3-5.1); Sodium 132 mmol/L (135-145)
[2022-02-25 06:28] LABS: Creatinine Clr Calc Pharmacy 13.6; Estimated Glomerular Filt Rate 12
[2022-02-25 07:22] LABS: Glucose, Whole Blood 153 mg/dL (60-115)
[2022-02-25] MEDS: Cholecalciferol (Vitamin D3) 25 MCG TABLET 50 MCG PO (07:58)
[2022-02-25] MEDS: Atorvastatin Calcium 80 MG TABLET PO (07:58)
[2022-02-25] MEDS: Aspirin Enteric Coated 81 MG TABLET.DR PO (07:59)
[2022-02-25] MEDS: Bumetanide 1 MG/4 ML VIAL IVPUSH (07:59)
[2022-02-25] MEDS: Apixaban 5 MG TABLET PO (07:59)
[2022-02-25] MEDS: Insulin Lispro 100 UNIT/ML 3 ML VIAL SUBCUT ×2 (07:59→13:29)
[2022-02-25] MEDS: carvediloL 3.125 MG TABLET PO (07:59)
[2022-02-25] MEDS: 0.9 % Sodium Chloride Flush 3 ML SYRINGE IVFLUSH (07:59)
[2022-02-25 08:00] VITALS: BP 168/82; PULSE 62; RESP 17; TEMP 36.8; O2SAT 95
[2022-02-25] MEDS: Insulin Glargine,Hum.rec.anlog 100 UNIT/ML 10 ML VIAL 15 UNIT SUBCUT (08:00)
--- NOTE | 2022-02-25 10:58 | W.PM.DNNEP ---
Subjective Subjective This patient was seen during dialysis. Physical Exam Vital Signs: Vital Signs: Last Vital Signs Temp 98.2 F 02/25/22 08:00 Pulse 62 02/25/22 08:00 Resp 17 02/25/22 08:00 BP 168/82 H 02/25/22 08:00 Pulse Ox 95 02/25/22 08:00 O2 Del Method 02/25/22 08:00 O2 Flow Rate 2 02/24/22 07:14 Oxygen Flow Rate 6 02/20/22 16:45 BMI result Body Mass Index 22.3 Const: General: cooperative, comfortable, no acute distress, alert and awake Nutritional Appearance: well nourished Orientation/consciousness: patient oriented x3 Limitations: no limitations HEENT: Head: Yes normal to inspection and Yes atraumatic Ears: hearing grossly normal bilaterally and external ears normal General nose exam: Normal external nose present, no nasal discharge noted and no epistaxis Face and sinus: Yes normal facial exam, No abrasion and No laceration Mouth: Normal oral and palatal mucosa present, no drooling and no muffled voice Eyes: General: appearance normal, both eyes and all related structures Periorbital: periorbital findings normal Eyelids: Yes eyelids normal Conjunctivae: conjunctivae normal Pupils: Equal, round and reactive pupils present EOM: EOMs intact bilaterally Neck: Neck: Yes normal visual inspection, Yes full ROM and Yes no lymphadenopathy Chest: Chest palpation & inspection: normal inspection of the chest Resp: Effort & Inspection: normal respiratory effort, able to speak in complete sentences, Actively coughing and labored Auscultation: crackles bilateral at the base Cardio: Palpation: normal PMI Rate: regular rate Rhythm: regular rhythm Heart sounds: S1 normal heart sound present, S2 normal heart sound present, no gallops, no murmurs and no rubs GI: Inspection: Yes normal to inspection Palpation (GI): Soft to palpation Auscultation: normal bowel sounds Skin: General skin exam: no rashes or lesions noted Neuro: General: patient oriented x3 and moves all extremities Cranial nerves: Yes Equal, round and reactive pupils present Cognition (Neuro): normal cognition Motor exam (neuro): 5/5 motor strength present throughout Sensory Exam: Normal double simultaneous stimulation for sensation Coordination: [id number] test normal Extrem: General: Yes normal to inspection, Yes full ROM, Yes capillary refill normal and Yes no pedal edema Assessment & Plan Assessment and plan (1) Type 2 diabetes mellitus with unspecified complications: (2) Essential hypertension: (3) ESRD (end stage renal disease) on dialysis: Plan 67-year-old male with past medical history of ESRD on dialysis, CHF, presents the hospital with what not feeling well found to have multiple acute medical issues ESRD On HD TTS dialysis today and remove fluid as tolerated Optimize HCT- transfuse as needed Continue Epogen Time Spent With Patient Time: Total time spent is greater than 50% in coordination of care (as documented) at patient's floor/unit and/or counseling patient: Procedures Date of Service Date of Service: 02/25/22
--- NOTE | 2022-02-25 12:25 | PM.DS ---
DS: Providers Provider Date of Service: 02/25/22 Date of admission: 02/20/22 20:40 Primary care physician: Unknown Physician Consults: 02/21/22 06:29 Consult to Cardiology Routine Consulting Provider: Frankie Abarca Reason for consultation: CHF, ESRD pt Consult to Nephrology Routine Consulting Provider: [facility] Reason for consultation: ESRD Has provider been notified: No DS: Diagnosis Discharge Diagnosis (1) Type 2 diabetes mellitus with unspecified complications: (2) Essential hypertension: (3) ESRD (end stage renal disease) on dialysis: Status: Acute (4) Sepsis: Status: Acute (5) Pneumonia: Status: Acute (6) Acute diastolic (congestive) heart failure: Status: Acute DS: Summary Hospital Course Hospital Course: Admission note HPI Nauruan-speaking only, try to obtain history with the help of an parts interpreter This is a 67-year-old male with past medical history of CAD, CHF, ESRD on dialysis, HTN, P AF, type 2 diabetes who presents to the hospital with complaints of not feeling well.? I tried to obtain history from the patient but he is confused, not oriented to self place and therefore unable to give much history. It appears the patient went to dialysis, was feeling unwell, went home had multiple episodes of vomiting which is usual for him after dialysis, but was altered therefore his family brought him to the hospital. On arrival to the ED patient's vitals are significant for respiratory rate of 22, but is otherwise unremarkable Labs are significant for WBC count 24.6, hemoglobin of 9.4, medical 28.2, PT of 17.6 INR of 1.5, sodium of 133, lactic acid of 2.5, magnesium of 1.6, troponin of 478 increased to480, BNP of [address] showed no acute intracranial pathology, no CT evidence of cervical spine fracture or traumatic subluxation Chest CT showed diffuse ground-glass opacities with interlobular septal thickening for which differential consideration would include pulmonary edema, versus atypical/viral infection Abdominal CT showed also marked circumferential urinary bladder wall thickening Hospital course The patient was admitted to the hospital for being unwell. Found to have an evidence of fluid overload and pneumonia on CT scan. Found to be septic at time of admission. Treated with IV antibiotics of azithromycin and ceftriaxone with good response over the hospital stay as he was weaned off the oxygen, WBCs trended down and blood cultures remain negative. Evaluated by Cardiology and Nephrology team for fluid overload with elevated BNP. Optimize fluid status with dialysis. Evidence of cystitis on CT scan of the abdomen but urine cultures remain negative. Patient received antibiotic as part of pneumonia treatment. Evaluated by physical therapy team who recommended short-term rehab. Continue azithromycin and Ceftin as prescribed Continue dialysis as planned To do physical therapy Time Spent with Patient Time attestation: Total time spent providing and/or coordinating discharge services: Discharge coordination time: Greater than 30 minutes Quality: Safe Use of Opioids Does Pt have an Active Cancer Diagnosis on the Problem List?: No Quality: Stroke Does the patient have a stroke diagnosis?: No Physical Exam Vital Signs: Vital Signs: Last Vital Signs Temp 98.2 F 02/25/22 08:00 Pulse 62 02/25/22 08:00 Resp 17 02/25/22 08:00 BP 168/82 H 02/25/22 08:00 Pulse Ox 95 02/25/22 08:00 O2 Del Method 02/25/22 08:00 O2 Flow Rate 2 02/24/22 07:14 Oxygen Flow Rate 6 02/20/22 16:45 BMI result Body Mass Index 22.3 Const: Other: Constitutional : Alert, interactive, not in distress Neck : Normal inspection, Supple Cardiovascular : RRR, no JVP, no lower extremity edema Respiratory : fair bilateral air entry, no crackles, wheezes or rhonchi Gastrointestinal: soft, lax, Normal bowel sounds, Non tender Skin : Warm, Dry Neurological : Alert & oriented x3, No focal deficit , CN 2-12 within normal DS: Data Data Completed and Pending Completed studies during hospitalization [Text1]: Procedures Performance of Urinary Filtration, Intermittent, Less than 6 Hours Per Day (12/03/21) Labs on day of discharge: Laboratory Results - last 24 hr 02/24/22 02/24/22 02/25/22 15:42 19:40 05:24 WBC 10.3 RBC 3.52 L Hgb 10.1 L Hct 30.8 L MCV 87.5 MCH 28.7 MCHC 32.8 RDW 14.9 Plt Count 251 MPV 8.4 L Absolute Nucleated RBC 0.000 Nucleated RBC % (auto) 0.0 Sodium Potassium Chloride Carbon Dioxide Anion Gap BUN Creatinine Estim Creat Clear Calc Estimated GFR POC Glucose 178 H 148 H Random Glucose Calcium 02/25/22 02/25/22 02/25/22 05:24 05:24 07:17 WBC RBC Hgb Hct MCV MCH MCHC RDW Plt Count MPV Absolute Nucleated RBC Nucleated RBC % (auto) Sodium 132 L Potassium 3.9 Chloride 99 Carbon Dioxide 19 L Anion Gap 18 BUN 34 H Creatinine 4.95 H* Cancelled Estim Creat Clear Calc 13.6 Cancelled Estimated GFR 12 Cancelled POC Glucose 153 H Random Glucose 173 H Calcium 8.1 L Preliminary micro results at discharge 02/20/22 18:09 Blood Culture - Preliminary Blood - Venous Prelim: GPR Gram Stain only 02/22/22 00:07 Blood Culture - Preliminary Blood - Venous No growth after 48 hours. 02/22/22 00:07 Blood Culture - Preliminary Blood - Venous No growth after [address] scan - chest: Radiologist's impression: ITS Impressions Abdomen/Pelvis CT 02/20/22 18:08 IMPRESSION: Diffuse groundglass opacities with interlobular septal thickening for which differential considerations would include pulmonary edema, given there are new small bilateral pleural effusions and mild cardiomegaly, and/or atypical/viral infection. Endometrium is abnormally thickened for the postmenopausal state measuring up to 1.1 cm in thickness. Recommend gynecologic evaluation and management and consider further imaging with pelvic ultrasound. New indeterminate mediastinal lymphadenopathy increased from priors, of uncertain etiology. Reactive or neoplastic etiology could both appear similar. Recommend correlation with clinical history and risk factors, and further workup on the basis of clinical history. At a minimum 3 month follow-up CT chest should be obtained to assess stability. Cholelithiasis. Mild gallbladder wall thickening however gallbladder is not significantly distended. Findings are equivocal for acute cholecystitis. Consider correlation with right upper quadrant ultrasound. Marked circumferential urinary bladder wall thickening measuring up to 1.9 cm in thickness, suspicious for cystitis. Left internal jugular central venous catheter tip terminates in the right atrium. Chest CT 02/20/22 18:08 IMPRESSION: Diffuse groundglass opacities with interlobular septal thickening for which differential considerations would include pulmonary edema, given there are new small bilateral pleural effusions and mild cardiomegaly, and/or atypical/viral infection. Endometrium is abnormally thickened for the postmenopausal state measuring up to 1.1 cm in thickness. Recommend gynecologic evaluation and management and consider further imaging with pelvic ultrasound. New indeterminate mediastinal lymphadenopathy increased from priors, of uncertain etiology. Reactive or neoplastic etiology could both appear similar. Recommend correlation with clinical history and risk factors, and further workup on the basis of clinical history. At a minimum 3 month follow-up CT chest should be obtained to assess stability. Cholelithiasis. Mild gallbladder wall thickening however gallbladder is not significantly distended. Findings are equivocal for acute cholecystitis. Consider correlation with right upper quadrant ultrasound. Marked circumferential urinary bladder wall thickening measuring up to 1.9 cm in thickness, suspicious for cystitis. Left internal jugular central venous catheter tip terminates in the right atrium. Cervical Spine CT 02/20/22 18:27 IMPRESSION: 1. No acute intracranial pathology. 2. No CT evidence of acute cervical spine fracture or traumatic subluxation Head CT 02/20/22 18:27 IMPRESSION: 1. No acute intracranial pathology. 2. No CT evidence of acute cervical spine fracture or traumatic subluxation Discharge Plan Discharge Patient Disposition: [facility] Discharge Diagnosis: Sepsis, pneumonia Fluid overload Symptomatic anemia Referrals: Physician,Unknown J [Primary Care Provider] - 1 Week Discharge Medications: New azithromycin 500 mg tablet 500 mg PO DAILY 5 Days Qty: 5 0RF cefuroxime axetil 250 mg tablet 250 mg PO Q12H Qty: 10 0RF Continued atorvastatin 80 mg tablet 1 tab PO DAILY amiodarone 200 mg tablet 1 tab PO QAM aspirin 81 mg tablet,delayed release (DR/EC) 1 tab PO DAILY carvedilol 3.125 mg tablet 1 tab PO BID bumetanide 1 mg tablet 1 tab PO BID insulin aspart U-100 [Novolog Flexpen U-100 Insulin] 100 unit/mL (3 mL) insulin pen subcut insulin glargine [Lantus Solostar U-100 Insulin] 100 unit/mL (3 mL) insulin pen 15 unit subcut DAILY cholecalciferol (vitamin D3) 50 mcg (2,000 unit) tablet 1 tab PO DAILY Eliquis 5 mg tablet 1 tab PO BID Discharge Orders: Discharge Order (Routine); Ordered 02/25/22 Ordered By: Deanna Celeste Diet: Advance to usual diet Activity on Discharge: As tolerated Stand Alone Forms: Patient Portal Discharge page Care Plan Goals: Read below Health Concerns: Read below Plan of Treatment: Read below Assessment: You were admitted to the hospital for evaluation of pneumonia. Treated with IV antibiotics with good response over the course of hospital stay as your blood cultures remain negative. Evaluated by Cardiology and Nephrology team for fluid overload at the improved significantly with dialysis. Evaluated by physical therapy team who recommended short-term rehab stay. Continue azithromycin and Ceftin as prescribed Continue dialysis as planned To do physical therapy
[2022-02-25 12:55] LABS: Glucose, Whole Blood 171 mg/dL (60-115)
[2022-02-25 13:37] LABS: COVID-19 Test Negative (Negative); IDNOW Serial# 16C4AD1C
--- NOTE | 2022-02-25 13:47 | MHC.CM.PN ---
Patient has been medically cleared for discharge today to [facility]. Patient will be transported via [facility]. 2nd IMM addressed with patient's sister/HCP Alysia Nunez [phone] and white copy mailed to her via certified mail, per her request.
== END 2022-02-25 15:08 | disposition skilled nursing facility (03) | DRG 871 ==
LOC: HO.ED 16:57 → HO.EDOVER 20:49 → HO.S3 22:15
PROVIDERS: Internal Medicine; Physician Assistant Medical; Admitting Provider Internal Medicine; PCP Internal Medicine Geriatric Medicine; Visit Provider Student in an Organized Health Care Education/Training Program
DX: A41.9 Sepsis, unspecified organism (principal); I50.33 Acute on chronic diastolic (congestive) heart failure; N18.6 End stage renal disease; J18.9 Pneumonia, unspecified organism; I12.0 Hypertensive chronic kidney disease with stage 5 chronic kidney disease or end stage renal disease; I13.2 Hypertensive heart and chronic kidney disease with heart failure and with stage 5 chronic kidney disease, or end stage renal disease; N39.0 Urinary tract infection, site not specified; N25.81 Secondary hyperparathyroidism of renal origin; E87.2 Acidosis; E87.1 Hypo-osmolality and hyponatremia; I48.0 Paroxysmal atrial fibrillation; E11.22 Type 2 diabetes mellitus with diabetic chronic kidney disease; D63.1 Anemia in chronic kidney disease; E83.42 Hypomagnesemia; I25.10 Atherosclerotic heart disease of native coronary artery without angina pectoris; Z20.822 Contact with and (suspected) exposure to COVID-19; Z99.2 Dependence on renal dialysis; Z79.82 Long term (current) use of aspirin; Z79.01 Long term (current) use of anticoagulants; Z79.4 Long term (current) use of insulin; Z79.899 Other long term (current) drug therapy
CPT/HCPCS: 36415; 70450; 71250; 72125; 74176; 80048; 80053; 80202; 81001; 82272; 82550; 82565; 82607; 82746; 82803; 82947; 83540; 83605; 83735; 83880; 84484; 85025; 85027; 85610; 85730; 86850; 86900; 86901; 86923; 87040; 87086; 87147; 87205; 87633; 87635; 90999; 93005; 93306; 97162; 99284; J0456; J0696; J0885; J1940; J2405; J2543; J2765; J3370; J3475; P9016; Q9957

== ENCOUNTER 2022-02-26 05:20 | Outpatient (REF) | payer OTHER, SELFPAY ==
[2022-02-26 05:22] LABS: MANUAL DIFF FLAG NO
[2022-02-26 05:32] LABS: Basophils Percent Auto 0.3 % (0-2); Eosinophils Absolute Auto 0.1 X10*3/uL (0.0-0.4); Eosinophils Percent Auto 0.6 % (0-4); Hematocrit 30.6 % (42.0-52.0); Hemoglobin 10.3 g/dl (14.0-18.0); Imm Gran Abs Auto 0.28 X10*3/uL (0.00-0.03); Imm Gran Pct Auto 2.4 % (0.0-0.4); Lymphocytes Absolute Auto 2.1 X10*3/uL (1.2-4.9); Lymphocytes Percent Auto 18.2 % (20-40); Mean Corpuscular HGB Conc 33.7 g/dl (31.0-36.0); Mean Corpuscular Hemoglobin 29.3 pg (27.0-33.0); Mean Corpuscular Volume 86.9 fL (80.0-98.0); Mean Platelet Volume 8.5 fL (9.4-12.4); Monocytes Absolute Auto 0.7 X10*3/uL (0.1-1.2); Monocytes Percent Auto 6.2 % (2-11); Neutrophils Absolute Auto 8.4 x10*3/uL (2.0-8.3); Neutrophils Percent Auto 72.3 % (45-73); Platelet Count 289 X10*3/uL (160-400); Red Blood Count 3.52 X10*6/uL (4.60-5.80); Red Cell Distribution Width 15.1 % (11.0-16.0); White Blood Count 11.6 X10*3/uL (4.8-10.8)
[2022-02-26 05:58] LABS: Alanine Aminotransferase 8 U/L (0-40); Alkaline Phosphatase 86 U/L (39-117); Anion Gap 16 (12-20); Aspartate Amino Transferase 9 U/L (5-37); Bilirubin Total 0.4 mg/dL (0.0-1.0); Blood Urea Nitrogen 25 mg/dL (9-16); Calcium 8.3 mg/dL (8.4-10.2); Carbon Dioxide 21 mmol/L (22-29); Chloride 99 mmol/L (96-108); Glucose Random 138 mg/dL (60-115); Potassium 3.7 mmol/L (3.3-5.1); Sodium 132 mmol/L (135-145); Total Protein 6.7 g/dL (6.5-8.0)
[2022-02-26 06:29] LABS: Estimated Glomerular Filt Rate 13
== END 2022-02-26 05:21 | disposition home or self-care (01) ==
LOC: HO.MMNH3L 05:20
PROVIDERS: Visit Provider Family Medicine
DX: I48.0 Paroxysmal atrial fibrillation (principal); N18.6 End stage renal disease; Z99.2 Dependence on renal dialysis
CPT/HCPCS: 36415; 80053; 85025

== ENCOUNTER 2022-03-01 06:33 | Outpatient (REF) | payer OTHER, SELFPAY ==
[2022-03-01 06:19] LABS: MANUAL DIFF FLAG NO
[2022-03-01 06:31] LABS: Basophils Percent Auto 0.4 % (0-2); Eosinophils Absolute Auto 0.1 X10*3/uL (0.0-0.4); Eosinophils Percent Auto 0.7 % (0-4); Hematocrit 30.3 % (42.0-52.0); Hemoglobin 9.9 g/dl (14.0-18.0); Imm Gran Abs Auto 0.14 X10*3/uL (0.00-0.03); Imm Gran Pct Auto 1.4 % (0.0-0.4); Lymphocytes Absolute Auto 2.7 X10*3/uL (1.2-4.9); Lymphocytes Percent Auto 27.3 % (20-40); Mean Corpuscular HGB Conc 32.7 g/dl (31.0-36.0); Mean Corpuscular Hemoglobin 29.2 pg (27.0-33.0); Mean Corpuscular Volume 89.4 fL (80.0-98.0); Mean Platelet Volume 8.5 fL (9.4-12.4); Monocytes Absolute Auto 0.7 X10*3/uL (0.1-1.2); Neutrophils Absolute Auto 6.4 x10*3/uL (2.0-8.3); Neutrophils Percent Auto 63.2 % (45-73); Platelet Count 296 X10*3/uL (160-400); Red Blood Count 3.39 X10*6/uL (4.60-5.80); Red Cell Distribution Width 16.2 % (11.0-16.0)
[2022-03-01 06:55] LABS: Anion Gap 17 (12-20); Blood Urea Nitrogen 24 mg/dL (9-16); Calcium 8.5 mg/dL (8.4-10.2); Carbon Dioxide 23 mmol/L (22-29); Chloride 100 mmol/L (96-108); Estimated Glomerular Filt Rate 13; Glucose Random 71 mg/dL (60-115); Potassium 3.6 mmol/L (3.3-5.1); Sodium 136 mmol/L (135-145)
== END 2022-03-01 06:34 | disposition home or self-care (01) ==
LOC: HO.MMNH3L 06:33
PROVIDERS: Visit Provider Family Medicine
DX: N18.6 End stage renal disease (principal)
CPT/HCPCS: 36415; 80048; 85025

== ENCOUNTER 2022-03-08 06:38 | Outpatient (REF) | payer MEDICARE, SELFPAY ==
[2022-03-08 06:31] LABS: MANUAL DIFF FLAG NO
[2022-03-08 06:35] LABS: Basophils Percent Auto 0.4 % (0-2); Eosinophils Absolute Auto 0.1 X10*3/uL (0.0-0.4); Eosinophils Percent Auto 1.2 % (0-4); Hematocrit 36.3 % (42.0-52.0); Hemoglobin 11.7 g/dl (14.0-18.0); Imm Gran Abs Auto 0.02 X10*3/uL (0.00-0.03); Imm Gran Pct Auto 0.2 % (0.0-0.4); Lymphocytes Absolute Auto 2.8 X10*3/uL (1.2-4.9); Lymphocytes Percent Auto 33.3 % (20-40); Mean Corpuscular HGB Conc 32.2 g/dl (31.0-36.0); Mean Corpuscular Hemoglobin 29.1 pg (27.0-33.0); Mean Corpuscular Volume 90.3 fL (80.0-98.0); Mean Platelet Volume 9.1 fL (9.4-12.4); Monocytes Absolute Auto 0.6 X10*3/uL (0.1-1.2); Monocytes Percent Auto 7.1 % (2-11); Neutrophils Absolute Auto 4.9 x10*3/uL (2.0-8.3); Neutrophils Percent Auto 57.8 % (45-73); Platelet Count 207 X10*3/uL (160-400); Red Blood Count 4.02 X10*6/uL (4.60-5.80); Red Cell Distribution Width 16.5 % (11.0-16.0); White Blood Count 8.5 X10*3/uL (4.8-10.8)
[2022-03-08 07:08] LABS: Anion Gap 16 (12-20); Blood Urea Nitrogen 31 mg/dL (9-16); Calcium 8.4 mg/dL (8.4-10.2); Carbon Dioxide 24 mmol/L (22-29); Chloride 99 mmol/L (96-108); Estimated Glomerular Filt Rate 12; Glucose Random 151 mg/dL (60-115); Potassium 3.9 mmol/L (3.3-5.1); Sodium 135 mmol/L (135-145)
== END 2022-03-08 06:39 | disposition home or self-care (01) ==
LOC: HO.MMNH3L 06:38
PROVIDERS: Visit Provider Family Medicine
DX: N18.6 End stage renal disease (principal); I48.0 Paroxysmal atrial fibrillation; Z99.2 Dependence on renal dialysis
CPT/HCPCS: 36415; 80048; 85025

== ENCOUNTER 2022-03-16 06:27 | Outpatient (REF) | payer MEDICARE, SELFPAY ==
[2022-03-16 06:32] LABS: MANUAL DIFF FLAG NO
[2022-03-16 06:58] LABS: Basophils Percent Auto 0.4 % (0-2); Eosinophils Absolute Auto 0.1 X10*3/uL (0.0-0.4); Hematocrit 38.9 % (42.0-52.0); Hemoglobin 12.7 g/dl (14.0-18.0); Imm Gran Abs Auto 0.03 X10*3/uL (0.00-0.03); Imm Gran Pct Auto 0.4 % (0.0-0.4); Lymphocytes Absolute Auto 2.8 X10*3/uL (1.2-4.9); Lymphocytes Percent Auto 35.5 % (20-40); Mean Corpuscular HGB Conc 32.6 g/dl (31.0-36.0); Mean Corpuscular Volume 88.8 fL (80.0-98.0); Mean Platelet Volume 9.1 fL (9.4-12.4); Monocytes Absolute Auto 0.6 X10*3/uL (0.1-1.2); Monocytes Percent Auto 7.2 % (2-11); Neutrophils Absolute Auto 4.3 x10*3/uL (2.0-8.3); Neutrophils Percent Auto 55.5 % (45-73); Platelet Count 179 X10*3/uL (160-400); Red Blood Count 4.38 X10*6/uL (4.60-5.80); Red Cell Distribution Width 15.6 % (11.0-16.0); White Blood Count 7.8 X10*3/uL (4.8-10.8)
[2022-03-16 07:52] LABS: Anion Gap 18 (12-20); Blood Urea Nitrogen 43 mg/dL (9-16); Calcium 8.5 mg/dL (8.4-10.2); Carbon Dioxide 23 mmol/L (22-29); Chloride 96 mmol/L (96-108); Estimated Glomerular Filt Rate 11; Glucose Random 151 mg/dL (60-115); Potassium 4.4 mmol/L (3.3-5.1); Sodium 133 mmol/L (135-145)
== END 2022-03-16 06:28 | disposition home or self-care (01) ==
LOC: HO.MMNH3L 06:27
PROVIDERS: Visit Provider Family Medicine
DX: I48.0 Paroxysmal atrial fibrillation (principal); N18.6 End stage renal disease; Z99.2 Dependence on renal dialysis
CPT/HCPCS: 36415; 80048; 85025

== ENCOUNTER 2022-04-08 17:37 | Emergency (ER) | payer MEDICARE, SELFPAY ==
--- NOTE | ~2022-04-08 | CT_ITS ---
EXAMINATION: CT ABDOMEN AND PELVIS WITHOUT CONTRAST CLINICAL INFORMATION: Abdominal pain. Nausea and vomiting. COMPARISON: Multiple priors, most recent CT abdomen/pelvis dated 02/20/2022. TECHNIQUE: Multidetector volumetric imaging was performed from the superior aspect of the liver through the pubic symphysis. Sagittal and coronal reformatted images were obtained on the technologist's workstation. This CT examination was performed using dose optimization techniques as appropriate, variously including the following: *Automated exposure control. *Adjustment of mA and/or kV according to patient size (this includes techniques or standardized protocols for targeted exams where dose is matched to indication/reason for exam; i.e. extremities or head). *Use of iterative reconstruction technique. DLP: 486 mGy-cm FINDINGS: LUNG BASES: Resolution of the previously seen small bilateral pleural effusions with near complete resolution of the adjacent airspace opacities. LIVER, GALLBLADDER, AND BILIARY TREE: The liver is normal in size, shape, and attenuation. No focal hepatic lesion or biliary ductal dilatation is present. Cholelithiasis. No gallbladder wall thickening or inflammatory change to suggest acute cholecystitis. No intrahepatic or extrahepatic biliary ductal dilatation. PANCREAS: Atrophic. SPLEEN: Unremarkable. ADRENAL GLANDS: Unremarkable. KIDNEYS AND URETERS: The kidneys are normal in size, shape, and attenuation. No hydronephrosis, hydroureter, or calculi seen. No perinephric stranding. BLADDER: Unremarkable urinary bladder. Previously seen circumferential bladder wall thickening not identified on the current examination. GASTROINTESTINAL TRACT: Unremarkable rectosigmoid anastomosis. No significant bowel wall thickening or associated inflammatory change. No small or large bowel obstruction. Unremarkable appendix. PERITONEAL CAVITY: No intra-abdominal free air or free fluid. No organized fluid collection. ABDOMINAL WALL: No significant hernia is appreciated. LYMPH NODES: No new or increasing lymphadenopathy. VASCULAR: Prominent atherosclerotic calcifications are redemonstrated. No abdominal aortic dilatation. PELVIC VISCERA: Unremarkable. OSSEOUS STRUCTURES: No acute osseous abnormality. CT/CT abdomen pelvis wo IV con IMPRESSION: 1. Unremarkable rectosigmoid anastomosis. No new bowel wall thickening or inflammatory change. No small or large bowel obstruction. Unremarkable appendix. 2. No new intra-abdominal mass, lymphadenopathy, or ascites. 3. Additional chronic findings are unchanged. Fleischner guidelines were followed.
--- NOTE | ~2022-04-08 | XR_ITS ---
EXAMINATION: XR CHEST CLINICAL INFORMATION: Question of pneumonia and pulmonary edema COMPARISON: 12/03/2021 TECHNIQUE: Frontal view of the chest was obtained. FINDINGS: Heart size upper limits of normal. There is no evidence of CHF. No focal consolidations are seen. There is mild elevation of the right hemidiaphragm. A tunneled left IJ dialysis catheter is present with its tip in good position in the right atrium. Severe bilateral degenerative changes are present in the shoulders with superior subluxation and marked rotator cuff disease, right greater than left. XR/XR chest 1V IMPRESSION: No acute intrathoracic disease
--- NOTE | 2022-04-08 17:47 | ECG_ITS ---
Test Reason : VOMITING Blood Pressure : / mmHG Vent. Rate : 064 BPM Atrial Rate : 064 BPM P-R Int : 234 ms QRS Dur : 114 ms QT Int : 446 ms P-R-T Axes : 000 -49 104 degrees QTc Int : 460 ms Poor data quality, interpretation may be adversely affected Sinus rhythm with 1st degree A-V block Left anterior fascicular block Minimal voltage criteria for LVH, may be normal variant ( [place] product ) ST & T wave abnormality, consider lateral ischemia Prolonged QT Abnormal ECG When compared with ECG of 20-FEB-2022 18:01, DE interval has increased Right bundle branch block is no longer Present Nonspecific T wave abnormality now evident in Lateral leads QT has shortened Referred By: Claudia Riojas Electronically Signed By:ISAIAH PANDEY
--- NOTE | 2022-04-08 17:48 | ED_ITS ---
HPI - General Adult General Chief complaint: Nausea/Vomiting/Diarrhea Stated complaint: Nausea, vomiting Time Seen by Provider: 04/08/22 17:40 Source: patient and EMS Mode of arrival: EMS Limitations: no limitations History of Present Illness HPI narrative: patient comes to the emergency room from home via ambulance. Patient had dialysis earlier today, since then he has been having nausea and vomiting. Patient denies chest pain or shortness of breath, no abdominal pain. Related Data Home Medications Medication Instructions Recorded Confirmed amiodarone 200 mg tablet 1 tab PO QAM 02/20/22 02/20/22 apixaban 5 mg tablet (Eliquis) 1 tab PO BID 02/20/22 02/20/22 aspirin 81 mg tablet,delayed 1 tab PO DAILY 02/20/22 02/20/22 release atorvastatin 80 mg tablet 1 tab PO DAILY 02/20/22 02/20/22 bumetanide 1 mg tablet 1 tab PO BID 02/20/22 02/20/22 carvedilol 3.125 mg tablet 1 tab PO BID 02/20/22 02/20/22 cholecalciferol (vitamin D3) 50 1 tab PO DAILY 02/20/22 02/20/22 mcg (2,000 unit) tablet insulin aspart U-100 100 unit/mL ea subcut 02/20/22 (3 mL) subcutaneous pen (Novolog Flexpen U-100 Insulin aspart) insulin glargine 100 unit/mL (3 15 unit subcut DAILY 02/20/22 02/20/22 mL) subcutaneous pen (Lantus Solostar U-100 Insulin) Previous Rx's Medication Instructions Recorded azithromycin 500 mg tablet 500 mg PO DAILY 5 days #5 tabs 02/25/22 cefuroxime axetil 250 mg tablet 250 mg PO Q12H #10 tabs 02/25/22 prochlorperazine maleate 5 mg 5 mg PO TID PRN nausea and 04/08/22 tablet (Compazine) vomiting #10 tabs Allergies Allergy/AdvReac Type Severity Reaction Status Date / Time No Known Allergies Allergy Verified 04/08/22 17:45 Review of Systems Review of Systems: Constitutional : No Weight loss, No Fever, No Chills, No Night Sweats, No Fatigue, No Malaise ENT/Mouth : No Hearing loss, No Ear Pain, No Nasal Congestion, No Sinus Pain, No Hoarseness, No sore throat, No Rhinorrhea, No Swallowing Difficulty Eyes: No Eye Pain, No Swelling, No Redness, No Foreign Body, No Discharge, No Vision Changes Cardiovascular : No Chest Pain, No SOB, No Dyspnea on Exertion, No Orthopnea, No Edema, No Palpitations Respiratory : No Cough, No Sputum, No Wheezing, No Smoke Exposure, No Dyspnea Gastrointestinal : Complaining of nausea and vomiting,No Diarrhea, No Constipation, No abdominal Pain, No Hematochezia, No Melena Genitourinary : no irregular bleeding, No Dysuria, No Urinary Frequency, No Hematuria, No Urinary Incontinence, No Urgency, No Flank Pain, No Urinary Flow Changes, No Hesitancy Musculoskeletal : No joint pain, No Myalgias, No Joint Swelling Skin : No Skin Lesions, No rash Neuro : No Weakness, No Numbness, No Paresthesias, No Loss of Consciousness, No Dizziness, No Headache Psych : No Anxiety/Panic, No Depression, No SI/HI/AH/VH, No Social Issues, Heme/Lymph: No Bruising, No Bleeding,No Lymphadenopathy Endocrine : No Polyuria, No Polydipsia, No Temperature Intolerance [facility] Past Medical History Medical History Anemia Atherosclerotic cardiovascular disease Chronic heart failure with preserved ejection fraction Chronic kidney disease, unspecified CKD (chronic kidney disease) ESRD (end stage renal disease) on dialysis Essential hypertension PAF (paroxysmal atrial fibrillation) Type 2 diabetes mellitus with unspecified complications Surgical History History of cardiac catheterization (~07/18/20) History of colon resection Family History Family History Father Esophageal cancer Mother Diabetes Hypertension Social History Social History Household Members: Unknown / Unable to assess Housing: Unknown / Unable to assess Do you presently have visiting nurse or other home services: Yes Unable to assess alcohol history related to: Unknown Alcohol intake: former Patient Tobacco Use Status: Never used Tobacco Advance Directives: Yes Advance Directives on File: Yes Advance Directives Date on File: 09/21/21 service: No Current occupational status: unemployed Physical Exam ED Vital Signs: Vital Signs - 24 hr 04/08/22 18:13 Temperature 98.7 F Pulse Rate 62 Respiratory Rate 19 Blood Pressure 136/31 L Pulse Oximetry 96 Oxygen Delivery Method Room Air BMI result Body Mass Index 30.9 Const Other: Appearance: Alert. Oriented X3. No acute distress. looks uncomfortable, nauseous, does not seem fluid overloaded Eyes: Pupils equal, round and reactive to light. ENT: Pharynx normal. Neck: Normal inspection. Neck supple. No lymph nodes noted. No crepitus CVS: Normal heart rate and rhythm. Pulses normal. Normal S1 and S2 Respiratory: No respiratory distress. Breath sounds normal. No Wheezing. No rales Abdomen: Soft and nontender. No rigidity. No distention. actively vomiting Skin: Skin warm and dry. Normal skin color. Normal skin turgor. Extremities: No lower extremity edema. No Lacerations. No Rash Neuro: Oriented X 3. No motor deficit. No sensory deficit. Moving all extremities. No slurred speech. CN 2 through 12 grossly intact Psych: calm, cooperative, normal affect Course Course Course Narrative: of patient's labs and imaging are pending, patient received IV Zofran. white blood cell count elevated at 12.9, likely reactive leukocytosis. Today patient had dialysis, the labs look stable CT scan does not show any acute abnormalities. Patient has not had any further episodes of vomiting. EKG shows sinus rhythm, 1st degree AV block, heart rate 64, no ST segment depression or elevation, no T-wave inversion, Medical Decision Making Lab Data Result diagrams: 04/08/22 18:11 04/08/22 18:11 Labs: Lab Results 04/08/22 04/08/22 04/08/22 Range/Units 18:11 18:11 18:11 WBC 12.9 H (4.8-10.8) X10*3/uL RBC 4.41 L (4.60-5.80) X10*6/uL Hgb 12.7 L (14.0-18.0) g/dl Hct 37.9 L (42.0-52.0) % MCV 85.9 (80.0-98.0) fL MCH 28.8 (27.0-33.0) pg MCHC 33.5 (31.0-36.0) g/dl RDW 14.8 (11.0-16.0) % Plt Count 165 (160-400) X10*3/uL MPV 8.2 L (9.4-12.4) fL Immature Gran % (Auto) 0.5 H (0.0-0.4) % Neut % (Auto) 90.1 H (45-73) % Lymph % (Auto) 5.0 L (20-40) % [place] % (Auto) 4.0 (2-11) % Eos % (Auto) 0.2 (0-4) % Baso % (Auto) 0.2 (0-2) % Lymph # (Auto) 0.6 L (1.2-4.9) X10*3/uL [place] # (Auto) 0.5 (0.1-1.2) X10*3/uL Eos # (Auto) 0.0 (0.0-0.4) X10*3/uL Baso # (Auto) 0.0 (0.0-0.2) X10*3/uL Abs Immat Gran (auto) 0.07 H (0.00-0.03) X10*3/uL Absolute Neuts (auto) 11.6 H (2.0-8.3) x10*3/uL Absolute Nucleated RBC 0.000 (0.0-0.012) X10*3/uL Nucleated RBC % (auto) 0.0 (0.0-0.2) /100WBC Smear Tech's Comments VERIFIED Sodium 138 (135-145) mmol/L Potassium 3.9 (3.3-5.1) mmol/L Chloride 98 (96-108) mmol/L Carbon Dioxide 28 (22-29) mmol/L Anion Gap 16 (12-20) BUN 13 D (9-16) mg/dL Creatinine 2.89 H (0.5-1.4) mg/dL Estim Creat Clear Calc 19.2 Estimated GFR 22 Random Glucose 79 D (60-115) mg/dL Calcium 8.8 (8.4-10.2) mg/dL Magnesium 1.6 (1.6-2.6) mg/dL Total Bilirubin 0.6 (0.0-1.0) mg/dL Direct Bilirubin 0.3 (0.0-0.5) mg/dL AST 17 D (5-37) U/L ALT 18 (0-40) U/L Alkaline Phosphatase 104 D (39-117) U/L Troponin I High Sens 21.6 D (<3.5-35.0) ng/L Total Protein 8.2 H D (6.5-8.0) g/dL Albumin 4.0 D (3.5-5.0) g/dL COVID-19 (REJI) (Negative) COVID-19 Clin Com 04/08/22 Range/Units 18:11 WBC (4.8-10.8) X10*3/uL RBC (4.60-5.80) X10*6/uL Hgb (14.0-18.0) g/dl Hct (42.0-52.0) % MCV (80.0-98.0) fL MCH (27.0-33.0) pg MCHC (31.0-36.0) g/dl RDW (11.0-16.0) % Plt Count (160-400) X10*3/uL MPV (9.4-12.4) fL Immature Gran % (Auto) (0.0-0.4) % Neut % (Auto) (45-73) % Lymph % (Auto) (20-40) % [place] % (Auto) (2-11) % Eos % (Auto) (0-4) % Baso % (Auto) (0-2) % Lymph # (Auto) (1.2-4.9) X10*3/uL [place] # (Auto) (0.1-1.2) X10*3/uL Eos # (Auto) (0.0-0.4) X10*3/uL Baso # (Auto) (0.0-0.2) X10*3/uL Abs Immat Gran (auto) (0.00-0.03) X10*3/uL Absolute Neuts (auto) (2.0-8.3) x10*3/uL Absolute Nucleated RBC (0.0-0.012) X10*3/uL Nucleated RBC % (auto) (0.0-0.2) /100WBC Smear Tech's Comments Sodium (135-145) mmol/L Potassium (3.3-5.1) mmol/L Chloride (96-108) mmol/L Carbon Dioxide (22-29) mmol/L Anion Gap (12-20) BUN (9-16) mg/dL Creatinine (0.5-1.4) mg/dL Estim Creat Clear Calc Estimated GFR Random Glucose (60-115) mg/dL Calcium (8.4-10.2) mg/dL Magnesium (1.6-2.6) mg/dL Total Bilirubin (0.0-1.0) mg/dL Direct Bilirubin (0.0-0.5) mg/dL AST (5-37) U/L ALT (0-40) U/L Alkaline Phosphatase (39-117) U/L Troponin I High Sens (<3.5-35.0) ng/L Total Protein (6.5-8.0) g/dL Albumin (3.5-5.0) g/dL COVID-19 (REJI) Negative (Negative) COVID-19 Clin Com See Note Imaging Data CT scan - abdomen: Radiologist's impression: FINDINGS: LUNG BASES: Resolution of the previously seen small bilateral pleural effusions with near complete resolution of the adjacent airspace opacities.? LIVER, GALLBLADDER, AND BILIARY TREE: The liver is normal in size, shape, and attenuation. No focal hepatic lesion or biliary ductal dilatation is present. Cholelithiasis. No gallbladder wall thickening or inflammatory change to suggest acute cholecystitis. No intrahepatic or extrahepatic biliary ductal dilatation.? PANCREAS: Atrophic.? SPLEEN: Unremarkable.? ADRENAL GLANDS: Unremarkable.? KIDNEYS AND URETERS: The kidneys are normal in size, shape, and attenuation. No hydronephrosis, hydroureter, or calculi seen. No perinephric stranding. ? BLADDER: Unremarkable urinary bladder. Previously seen circumferential bladder wall thickening not identified on the current examination.? GASTROINTESTINAL TRACT: Unremarkable rectosigmoid anastomosis. No significant bowel wall thickening or associated inflammatory change. No small or large bowel obstruction. Unremarkable appendix. PERITONEAL CAVITY: No intra-abdominal free air or free fluid. No organized fluid collection.? ABDOMINAL WALL: No significant hernia is appreciated.? LYMPH NODES: No new or increasing lymphadenopathy. VASCULAR: Prominent atherosclerotic calcifications are redemonstrated. No abdominal aortic dilatation. PELVIC VISCERA: Unremarkable.? OSSEOUS STRUCTURES: No acute osseous abnormality.? CT/CT abdomen pelvis wo IV con IMPRESSION: 1. Unremarkable rectosigmoid anastomosis. No new bowel wall thickening or inflammatory change. No small or large bowel obstruction. Unremarkable appendix. ? 2. No new intra-abdominal mass, lymphadenopathy, or ascites. ? 3. Additional chronic findings are unchanged.? ? Fleischner guidelines were followed. Discharge Plan Discharge Clinical Impression: Nausea & vomiting Patient Disposition: Home, Self-Care Instructions: Acute Nausea and Vomiting (ED) Additional Instructions: Please follow-up with your primary care physician tomorrow. If you have any worsening or new symptoms, please return to the emergency room or call 911 Prescriptions: New prochlorperazine maleate [Compazine] 5 mg tablet 5 mg PO TID PRN (Reason: nausea and vomiting) Qty: 10 0RF No Action atorvastatin 80 mg tablet 1 tab PO DAILY amiodarone 200 mg tablet 1 tab PO QAM aspirin 81 mg tablet,delayed release (DR/EC) 1 tab PO DAILY carvedilol 3.125 mg tablet 1 tab PO BID bumetanide 1 mg tablet 1 tab PO BID insulin aspart U-100 [Novolog Flexpen U-100 Insulin] 100 unit/mL (3 mL) insulin pen subcut insulin glargine [Lantus Solostar U-100 Insulin] 100 unit/mL (3 mL) insulin pen 15 unit subcut DAILY cholecalciferol (vitamin D3) 50 mcg (2,000 unit) tablet 1 tab PO DAILY Eliquis 5 mg tablet 1 tab PO BID azithromycin 500 mg tablet 500 mg PO DAILY 5 Days Qty: 5 0RF cefuroxime axetil 250 mg tablet 250 mg PO Q12H Qty: 10 0RF
[2022-04-08 17:49] VITALS: BP 176/90; PULSE 80
[2022-04-08 18:13] VITALS: BP 136/31; PULSE 62; RESP 19; TEMP 37.1; O2SAT 96; BMI 30.9
[2022-04-08 18:20] LABS: Basophils Percent Auto 0.2 % (0-2); Eosinophils Percent Auto 0.2 % (0-4); Hematocrit 37.9 % (42.0-52.0); Hemoglobin 12.7 g/dl (14.0-18.0); Imm Gran Abs Auto 0.07 X10*3/uL (0.00-0.03); Imm Gran Pct Auto 0.5 % (0.0-0.4); Lymphocytes Absolute Auto 0.6 X10*3/uL (1.2-4.9); MANUAL DIFF FLAG SCAN; Mean Corpuscular HGB Conc 33.5 g/dl (31.0-36.0); Mean Corpuscular Hemoglobin 28.8 pg (27.0-33.0); Mean Corpuscular Volume 85.9 fL (80.0-98.0); Mean Platelet Volume 8.2 fL (9.4-12.4); Monocytes Absolute Auto 0.5 X10*3/uL (0.1-1.2); Neutrophils Absolute Auto 11.6 x10*3/uL (2.0-8.3); Neutrophils Percent Auto 90.1 % (45-73); Platelet Count 165 X10*3/uL (160-400); Red Blood Count 4.41 X10*6/uL (4.60-5.80); Red Cell Distribution Width 14.8 % (11.0-16.0); SCAN SMEAR FLAG 1; White Blood Count 12.9 X10*3/uL (4.8-10.8)
--- OUTSIDE RECORDS SUMMARY | 2022-04-08 18:32 | XMS_ITS | Continuity of Care Document ---
:1955 Author Organization [facility] Address [address] [address]- Care Team Providers Name Role Phone Name Rayray KAPLAN Primary Care Physician Encounter [facility] Date(s): 03/05/21 - 04/04/21 [facility] [address] [place] [id number]- Attending Physician: Rosa Perez Admitting Physician: oRsa Perez Referring Physician: AdmtrRosa Allergies, Adverse Reactions, Alerts No Known Medication Allergies Substance Reaction Severity Status NKA Active Immunizations Given and Recorded Vaccine Date Status Refusal Reason tetanus/diphtheria/pertussis, acel(Tdap) 10/13/15 Given Medications amiodarone 200 mg oral tablet 200 mg, 1, tablet, By Mouth, Daily in AM, # 30 tablet, Refills 0, Maintenance, 06/10/20 11:50:00 EST, Partial fill upon patient request if the prescription is for a schedule II opioid drug. Start Date: 06/10/20 Status: Orderedaspirin 81 mg oral delayed release tablet 81 mg, 1, tablet, By Mouth, Daily in AM, # 30 tablet, Refills 0, Maintenance, 05/23/19 9:27:49 EST Start Date: 05/23/19 Status: Orderedatorvastatin 80 mg oral tablet 1 tablet = 80 mg, By Mouth, Daily at bedtime, # 30 tablet, 0 Refills, Maintenance, 06/10/20 11:51:00EST, Tablet, Partial fill upon patient request if the prescription is for a schedule II opioid drug. Start Date: 06/10/20 Status: Orderedbumetanide 1 mg oral tablet 1 mg, 1, tablet, By Mouth, 2 times a day, # 30 tablet, Refills 0, Maintenance, 06/10/20 11:52:00 EST, Partial fill upon patient request if the prescription is for a schedule II opioid drug. Start Date: 06/10/20 Status: Orderedcarvedilol 3.125 mg oral tablet 3.125 mg, 1, tablet, By Mouth, 2 times a day, # 60 tablet, Refills 0, Maintenance, 06/10/20 11:54:00EST, Partial fill upon patient request if the prescription is for a schedule II opioid drug. Start Date: 06/10/20 Status: OrderedEliquis 5 mg oral tablet 1 tablet = 5 mg, By Mouth, 2 times a day, # 60 tablet, 0 Refills, Maintenance, 02/09/21 11:36:00 EDT, Tablet, [facility]/pharmacy #[id number], Partial fill upon patient request if the prescription is for a scheduleII opioid drug., 168, cm, 02/09/21 7:08:00 EDT, H... Start Date: 02/09/21 Status: OrderedEpogen 2000 u/ml injectable solution = 2,000 units, Subcutaneous Injection, after dialysis, Per , nephro., 0 Refills, Maintenance, 09/03/20 11:43:00 EST, Partial fill upon patient request if the prescription is for a schedule IIopioid drug. Start Date: 09/03/20 Status: OrderedFLUoxetine 20 mg oral capsule 20 mg, 1, capsule, By Mouth, Daily in AM, # 60 capsule, Refills 0, Maintenance, 05/23/19 9:24:47 EST Start Date: 05/23/19 Status: OrderedHibiclens 4% soap See Instructions, Use on the night before your surgery as directed, # 120 mL, 0 Refills, Soft Stop, 10/30/20 10:37:00 EDT, [facility]/pharmacy #[id number], Partial fill upon patient request if the prescription is for a schedule II opioid drug., Use on the night be... Start Date: 10/30/20 Status: OrderedLantus 100 u/ml subcutaneous solution = 30 units, Subcutaneous Infusion, Daily at bedtime, 0 Refills, Maintenance, 05/23/19 9:25:52 EST Start Date: 05/23/19 Status: OrderedNovoLOG FlexPen 100 units/mL subcutaneous solution Subcutaneous Infusion, 3 times a day before meals, 0 Refills, Maintenance, 06/10/20 11:59:00 EST, Partial fill upon patient request if the prescription is for a schedule II opioid drug. Start Date: 06/10/20 Status: OrderedVitamin D3 2000 intl units oral capsule 1 capsule = 2,000 International_Units, By Mouth, Daily, 0 Refills, Maintenance, 05/23/19 9:26:59 EST Start Date: 05/23/19 Status: Ordered Social History Social History Type Response Smoking Status Former smoker, quit more sena n 30 days ago entered on: 06/18/19 Sex
--- OUTSIDE RECORDS SUMMARY | 2022-04-08 18:32 | XMS_ITS | Continuity of Care Document ---
:1955 Author Organization [facility] Address [address] [place] [phone]- Care Team Providers Name Role Phone Name Rayray KAPLAN Primary Care Physician [place] [facility] [place] 07/13/[address] [address] Attending Physician: Mamadou Haji MD Admitting Physician: Mamadou Haji MD Allergies, Adverse Reactions, Alerts No Known Medication Allergies Immunizations Given and Recorded Vaccine Date Status [...] opioid drug. Start Date: 06/10/20 Status: OrderedEliquis 2.5 mg oral tablet 1 tablet = 2.5 mg, By Mouth, 2 times a day, # 60 tablet, 0 Refills, Maintenance, 06/10/20 11:56:00 EST, Tablet, Partial fill upon patient request if the prescription is for a schedule II opioid drug. Start Date: 06/10/20 Status: OrderedFLUoxetine 20 mg oral capsule 20 mg, 1, capsule, By Mouth, Daily in AM, # 60 capsule, Refills 0, Maintenance, 05/23/19 9:24:47 EST Start Date: 05/23/19 Status: OrderedLantus 100 u/ml subcutaneous solution = [...] 9:26:59 EST Start Date: 05/23/19 Status: Ordered Vital Signs Most recent to oldest [Reference Range]: 1 Height 162.56 cm (06/10/20 1:42 PM) Social History Social History Type Response Smoking Status Former smoker, quit more sena n 30 days ago entered on: 06/18/19 Sex
--- OUTSIDE RECORDS SUMMARY | 2022-04-08 18:32 | XMS_ITS | Continuity of Care Document ---
:1955 Author Organization [facility] Address [address] [address]- Care Team Providers Name Role Phone Name Rayray KAPLAN Primary Care Physician Encounter [facility] [place] Date(s): 03/05/21 - 03/12/21 [facility] [address] [place] [id number]- Attending Physician: Gualberto Hernandez MD Referring Physician: Frankie Abarca MD Allergies, Adverse Reactions, Alerts No Known [...] 0 Refills, Maintenance, 02/09/21 11:36:00 EDT, Tablet, [facility]/pharmacy #[id number], Partial fill upon patient request if [...] 0 Refills, Soft Stop, 10/30/20 10:37:00 EDT, [facility]/pharmacy #[id number], Partial fill upon patient request if [...] recent to oldest [Reference Range]: 1 Height 168 cm (03/05/21 2:08 PM) Oxygen Saturation [94-100 %] 94 % (03/05/21 2:08 PM) Pulse Rate [55-90 bpm] 63 bpm (03/05/21 2:08 PM) Blood Pressure [90-138/55-84 mm Hg] 110/68 mm Hg (03/05/21 2:08 PM) Respiratory Rate [16-30 br/min] 18 br/min (03/05/21 2:08 PM) Mode of Delivery (Oxygen) Room air (03/05/21 2:08 PM) Blood pressure sites Arm, right (03/05/21 2:08 PM) Weight Obtained Via Patient/family stated (03/05/21 2:08 PM) Social History Social History Type Response Smoking Status Former smoker, quit more sena n 30 days ago entered on: 06/18/19 Sex
--- OUTSIDE RECORDS SUMMARY | 2022-04-08 18:32 | XMS_ITS | Continuity of Care Document ---
:1955 Author Organization [facility] Address [address] [address]- Care Team Providers Name Role Phone Name Rayray KAPLAN Primary Care Physician Encounter [facility] Date(s): 09/01/20 - 10/01/20 [facility] [address] [place] [id number] Attending Physician: Rosa Perez Admitting Physician: Rosa Perez Referring Physician: AdmRosa gil Allergies, Adverse Reactions, Alerts No Known Medication [...] II opioid drug. Start Date: 06/10/20 Status: OrderedEpogen 2000 u/ml injectable solution = [...] 30 days ago entered on: 06/18/19 Sex Male
--- OUTSIDE RECORDS SUMMARY | 2022-04-08 18:32 | XMS_ITS | Continuity of Care Document ---
:1955 Author Organization [facility] Address [address] [phone]- Care Team Providers Name Role Phone Kojo KAPLAN, Amalia Parry Primary Care Physician Encounter [facility] [place] [place] Date(s): 06/18/19 - 06/25/19 [facility] [address] [place] [id number] [facility] Attending Physician: Gualberto Hernandez MD Referring Physician: John Corado MD Allergies, Adverse Reactions, Alerts No Known Medication Allergies Immunizations Given and Recorded Vaccine Date Status Refusal Reason tetanus/diphtheria/pertussis, acel(Tdap) 10/13/15 Given Medications amLODIPine 10 mg oral tablet 10 mg, 1, tablet, By Mouth, Daily, # 30 tablet, Refills 0, Maintenance, 05/23/19 10:15:51 EST Start Date: 05/23/19 Status: Orderedaspirin 81 mg oral delayed release tablet 81 mg, 1, tablet, By Mouth, Daily, # 30 tablet, Refills 0, Maintenance, 05/23/19 9:27:49 EST Start Date: 05/23/19 Status: Orderedatenolol 50 mg oral tablet 50 mg, 1, tablet, By Mouth, 2 times a day, # 60 tablet, Refills 0, Maintenance, 05/23/19 9:24:22 EST Start Date: 05/23/19 Status: OrderedFLUoxetine 20 mg oral capsule 20 mg, 1, capsule, By Mouth, Daily, # 60 capsule, Refills 0, Maintenance, 05/23/19 9:24:47 EST Start Date: 05/23/19 Status: Orderedfolic acid 1 mg oral tablet 1 mg, 1, tablet, By Mouth, Daily, # 30 tablet, Refills 0, Maintenance, 05/23/19 9:28:17 EST Start Date: 05/23/19 Status: OrderedFurosemide Daily, 0 Refills, Maintenance, 05/23/19 10:16:37 EST Start Date: 05/23/19 Status: OrderedHumalog Cartridge 100 units/mL subcutaneous injection = 5 units, Subcutaneous Injection, 3 times a day before meals, # 15 mL, 0 Refills, Maintenance, 05/23/19 9:25:26 EST, Solution Start Date: 05/23/19 Status: OrderedImdur 30 mg oral tablet, extended release 1, tablet, By Mouth, Daily in AM, # 30 tablet, Refills 0, Maintenance, 05/23/19 9:28:07 EST Start Date: 05/23/19 Status: OrderedLantus 100 u/ml subcutaneous solution Subcutaneous Infusion, Daily, 0 Refills, Maintenance, 05/23/19 9:25:52 EST Start Date: 05/23/19 Status: OrderedLipitor 20 mg oral tablet 1 tablet = 20 mg, By Mouth, Daily, # 30 tablet, 0 Refills, Maintenance, 05/23/19 9:24:10 EST, Tablet Start Date: 05/23/19 Status: OrderedNeomycin / Polymyxin B / Dexamethasone Ophthalmic Eyes, Both, 0 Refills, Maintenance, 05/23/19 9:27:35 EST Start Date: 05/23/19 Status: OrderedPercocet-5/325 325 mg-5 mg oral tablet 2, tablet, By Mouth, Every 6 hours, PRN, Refills 0, Tot. Refills 0, Maintenance, for pain, 05/23/19 9:26:22 EST, Tablet, Partial fill upon patient request Start Date: 05/23/19 Status: Orderedsodium bicarbonate 650 mg oral tablet 1 tablet = 650 mg, By Mouth, 4 times a day, 0 Refills, Maintenance, 05/23/19 9:29:14 EST Start Date: 05/23/19 Status: Orderedterazosin 2 mg oral capsule 2 mg, 1, capsule, By Mouth, Daily at bedtime, # 30 capsule, Refills 0, Maintenance, 05/23/19 9:29:32EST Start Date: 05/23/19 Status: OrderedtraZODone 50 mg oral tablet 50 mg, 1, tablet, By Mouth, 3 times a day, # 90 tablet, Refills 0, Maintenance, 05/23/19 9:28:46 EST Start Date: 05/23/19 Status: OrderedVESIcare 5 mg oral tablet 1 tablet = 5 mg, By Mouth, Daily, # 30 tablet, 0 Refills, Maintenance, 05/23/19 9:27:10 EST, Tablet Start Date: 05/23/19 Status: OrderedVitamin D3 2000 intl units oral capsule 1 capsule = 2,000 International_Units, By Mouth, Daily, 0 Refills, Maintenance, 05/23/19 9:26:59 EST Start Date: 05/23/19 Status: Ordered Vital Signs Most recent to oldest [Reference Range]: 1 Height 167.54 cm (06/18/19 1:57 PM) Weight 70 kg (06/18/19 1:57 PM) Oxygen Saturation [94-100 %] 96 % (06/18/19 1:57 PM) Pulse Rate [55-90 bpm] 60 bpm (06/18/19 1:57 PM) Body Mass Index [18.5-24.99] 24.94 (06/18/19 1:57 PM) Blood Pressure [90-138/55-84 mm Hg] 126/62 mm Hg (06/18/19 1:57 PM) Blood pressure sites Arm, right (06/18/19 1:57 PM) Social History Social History Type Response Smoking Status Former smoker, quit more sena n 30 days ago entered on: 06/18/19 Sex
--- OUTSIDE RECORDS SUMMARY | 2022-04-08 18:32 | XMS_ITS | Continuity of Care Document ---
:1955 Author Organization [facility] Address [address] [place] [address]- Care Team Providers Name Role Phone Name Rayray KAPLAN Primary Care Physician [place] [facility] [place] - 02/23/[address] [address]- Encounter Diagnosis Cholelithiasis (Final) - 02/20/21 Pancreatitis (Final) - 02/20/21 Sepsis (Final) - 02/23/21 Discharge Disposition: A-D/C Home Attending Physician: Jhonatan Corrales MD Admitting Physician: Darrius Polo MD Referring Physician: Not on Staff, Referring MD Allergies, Adverse Reactions, Alerts No Known [...] Orderedcarvedilol 3.125 mg oral tablet 3.125 mg, Tablet, By Mouth, 02/22/21 21:00:00 EDT Start Date: 02/22/21 Stop Date: 02/22/21 Status: Completedcarvedilol 3.125 mg oral tablet 3.125 mg, Tablet, By Mouth, 02/23/21 9:00:00 EDT Start Date: 02/23/21 Stop Date: 02/23/21 Status: Completedcarvedilol 3.125 mg oral tablet 3.125 mg, 1, [...] 0 Refills, Maintenance, 02/09/21 11:36:00 EDT, Tablet, [facility]/pharmacy #[id number], Partial fill upon patient request if [...] 9:26:59 EST Start Date: 05/23/19 Status: Ordered Results Orders for Microbiology Reports Name Date Blood Culture 02/20/21 Blood Culture #2 02/20/21 Microbiology Reports TEST:Blood Culture, Second Order STATUS:Unauthenticated BODY SITE: SOURCE:Blood COLLECTED DATE/TIME:02/20/21 9:21 PMBlood Culture, Second Order SPECIMEN DESCRIPTION : BLOOD NO SITE SPECIAL REQUESTS : NONE CULTURE : NO GROWTH AFTER 48 HOURS REPORT STATUS : PRELIMINARY REPORT TEST:Blood Culture STATUS:Unauthenticated BODY SITE: SOURCE:Blood COLLECTED DATE/TIME:02/20/21 6:25 PMBlood Culture SPECIMEN DESCRIPTION : BLOOD PORT SPECIAL REQUESTS : NONE CULTURE : NO GROWTH AFTER 48 HOURS REPORT STATUS : PRELIMINARY REPORT Radiology Reports Exam Date Time Procedure Performing Provider Status 02/20/21 6:18 PM Chest Portable Gilmar Graf; Auth (Verified) Notes:(Chest Portable) Reason For Exam: CoughRESULT: Chest Portable Chest Portable Hx of Present Illness: started dark stools on tuesday. vomitting started yesterday. sister states vomit was dark black. pt has had no energy and not eating. bp was low at home.; Reason: Cough; Clinical Question(s): Pneumonia; Special Instructions: This is a protocol film and radiologist should call any findings to the Charge Nurse or appropriate provider COMPARISON: 02/06/2021 FINDINGS: LINES AND TUBES: Left internal jugular dialysis catheter with distal tip in right atrium unchanged. LUNGS AND PLEURA: Chronic elevation of the right hemidiaphragm unchanged. No focal opacity or volume loss. Normal pulmonary vascularity. No pleural effusion. No pneumothorax. HEART, MEDIASTINUM AND RENATO: Heart is normal in size. Normal upper mediastinal and hilar contour. BONES AND SOFT TISSUES: No acute abnormality. IMPRESSION: No acute cardiopulmonary pathology. WSN: [id number] Ordering Physician: Lb Bartlett Dictated By: Demetris Dowell MD Dictated Date/Time: 02/20/21 6:20 pm Reviewed By: Demetris Dowell MD Signed By: Demetris Dowell MD Signed Date/Time: 02/20/21 6:20 pm Transcribed By: CHELA Transcribed Date/Time: 02/20/21 6:20 pm Vital Signs Most recent to oldest 1 2 3 [Reference Range]: Height 168 cm 168 cm 168 cm (02/22/21 11:14 PM) (02/22/21 7:06 PM) (02/22/21 4: 59 PM) Weight 73.2 kg 73.2 kg (02/21/21 10:53 AM) (02/21/21 10:21 AM) Oxygen Saturation [94-100 %] 100 % 100 % 98 % (02/23/21 12:00 PM) (02/22/21 11:14 PM) (02/22/21 7 :06 PM) Pulse Rate [55-90 bpm] 64 bpm 60 bpm 68 bpm (02/23/21 12:43 PM) (02/22/21 11:14 PM) (02/22/21 9 :51 PM) Body Mass Index [18.5-24.99] 25.94 *H* (02/21/21 10:53 AM) Blood Pressure [90-138/55-84 111/58 mm Hg 118/50 mm Hg 138 /69 mm Hg mm Hg] (02/23/21 12:43 PM) (02/22/21 11:14 PM) (02/22/21 9 :51 PM) Respiratory Rate [16-30 20 br/min 18 br/min 16 br/mi n br/min] (02/23/21 12:00 PM) (02/22/21 11:14 PM) (02/22/21 7 :06 PM) Temperature [96.8-100.4 DegF] 98.5 DegF 98.3 DegF 98 .1 DegF (02/23/21 12:00 PM) (02/22/21 11:14 PM) (02/22/21 7 :06 PM) Mode of Delivery (Oxygen) Room air Room air Room a ir (02/23/21 12:00 PM) (02/22/21 11:14 PM) (02/22/21 7 :06 PM) Blood pressure sites Arm, right Arm, right Arm, right (02/23/21 12:00 PM) (02/22/21 11:14 PM) (02/22/21 7 :06 PM) Temperature Route Oral Oral Oral (02/23/21 12:00 PM) (02/22/21 11:14 PM) (02/22/21 7 :06 PM) Dry Weight 81.81 kg (02/21/21 10:53 AM) Weight Obtained Via Bed scale (02/21/21 10:21 AM) Social History Social History Type Response Smoking Status Former smoker, quit more sena n 30 days ago entered on: 06/18/19 Sex
--- OUTSIDE RECORDS SUMMARY | 2022-04-08 18:32 | XMS_ITS | Continuity of Care Document ---
:1955 Author Organization [facility] Address [address] [place] [address]- Care Team Providers Name Role Phone Name Rayray KAPLAN Primary Care Physician Encounter [facility] [place] Date(s): 02/19/21 - 03/26/[address] [address] Attending Physician: Gualberto Hernandez MD Referring Physician: [...] 0 Refills, Maintenance, 02/09/21 11:36:00 EDT, Tablet, [facility]/pharmacy #[id number], Partial fill upon patient request [...] 0 Refills, Soft Stop, 10/30/20 10:37:00 EDT, [facility]/pharmacy #[id number], Partial fill upon patient request [...]
--- OUTSIDE RECORDS SUMMARY | 2022-04-08 18:32 | XMS_ITS | Continuity of Care Document ---
:1955 Author Organization [facility] Address [address] [address]- Care Team Providers Name Role Phone Kojo KAPLAN, Amalia Parry Primary Care Physician [place] [facility] [place]/18[place]19 - 06/28/19 [facility] [address] [address] [facility] Attending Physician: Rosa Perez Admitting Physician: Rosa Perez Referring Physician: AdmtrRosa Allergies, Adverse Reactions, [...]
--- OUTSIDE RECORDS SUMMARY | 2022-04-08 18:32 | XMS_ITS | Continuity of Care Document ---
:1955 Author Organization [facility] Address [address] [place] [address]- Care Team Providers Name Role Phone Kojo KAPLAN, Amalia Parry Primary Care Physician Encounter [facility] [place] [facility] R [id number] Date(s): 07/06/19 - 07/16/19 [facility] [address] [place] [address]- [facility] Attending Physician: Rosa Perez Admitting Physician: Rosa [...]
--- OUTSIDE RECORDS SUMMARY | 2022-04-08 18:32 | XMS_ITS | Continuity of Care Document ---
:1955 Author Organization [facility] Address [address] [address]- Care Team Providers Name Role Phone Name Rayray KAPLAN Primary Care Physician Encounter [facility] [place] Date(s): 10/14/20 - 10/21/20 [facility] [address] [place] [address] Attending Physician: Gualberto Hernandez MD Referring Physician: Stanley Abarca MD Allergies, Adverse Reactions, Alerts No [...] oldest [Reference Range]: 1 Height 162.56 cm (10/14/20 1:46 PM) Weight 69.09 kg (10/14/20 1:46 PM) Body Mass Index [18.5-24.99] 26.14 *H* (10/14/20 1:46 PM) Weight Obtained Via Patient/family stated (10/14/20 1:46 PM) Social History Social History Type Response Smoking Status Former smoker, quit more sena n 30 days ago entered on: 06/18/19 Sex Male
--- OUTSIDE RECORDS SUMMARY | 2022-04-08 18:32 | XMS_ITS | Continuity of Care Document ---
:1955 Author Organization [facility] Address [address] [place] [address]- Care Team Providers Name Role Phone Name Rayray KAPLAN Primary Care Physician [place] [facility] Date(s): 12/01/20 - 12/31/20 [facility] [address] [place] [address] Attending Physician: Rosa Perez Admitting Physician: Rosa Perez Referring Physician: Rosa Perez Allergies, Adverse Reactions, Alerts No Known Medication [...] 0 Refills, Soft Stop, 10/30/20 10:37:00 EDT, [facility]/pharmacy #[id number], Partial fill upon patient request if the [...]
--- OUTSIDE RECORDS SUMMARY | 2022-04-08 18:32 | XMS_ITS | Continuity of Care Document ---
:1955 Author Organization [facility] Address [address] [address]- Care Team Providers Name Role Phone Name Rayray KAPLAN Primary Care Physician Encounter [facility] Date(s): 04/13/21 - 05/13/21 [facility] [address] [place] [address]- Attending Physician: Rosa Perez Admitting Physician: Rosa [...] 0 Refills, Maintenance, 02/09/21 11:36:00 EDT, Tablet, [facility]/pharmacy #[id number], Partial fill upon patient request [...]
--- OUTSIDE RECORDS SUMMARY | 2022-04-08 18:32 | XMS_ITS | Continuity of Care Document ---
:1955 Author Organization [facility] Address [address] [place] [address]- Care Team Providers Name Role Phone Name Rayray KAPLAN Primary Care Physician [place] [facility] [place](s[place] 10/16/20 - 11/30/[address] [address] Attending Physician: Gualberto Hernandez MD Referring Physician: Gualberto Hernandez MD Allergies, Adverse Reactions, Alerts No Known [...] 10:37:00 EDT, [facility]/pharmacy #[id number], Partial fill upon patient request if the [...]
--- OUTSIDE RECORDS SUMMARY | 2022-04-08 18:32 | XMS_ITS | Continuity of Care Document ---
:1955 Author Organization [facility] Address [address] [address]- Care Team Providers Name Role Phone Name Rayray KAPLAN Primary Care Physician Encounter [facility] Date(s): 10/14/20 - 11/13/20 [facility] [address] [place] [address] Attending Physician: Rosa Perez Admitting [...] 0 Refills, Soft Stop, 10/30/20 10:37:00 EDT, [facility]/pharmacy #[id number], Partial fill upon patient request if the [...]
--- OUTSIDE RECORDS SUMMARY | 2022-04-08 18:32 | XMS_ITS | Continuity of Care Document ---
:1955 Author Organization [facility] Address [address] [place] [address]- Care Team Providers Name Role Phone Name Rayray KAPLAN Primary Care Physician Encounter [facility] [place] Date(s): 02/06/21 - 02/15/[address] [address] [place] Discharge Disposition: A-D/C Home Attending Physician: Angelique Parks MD Admitting Physician: Nahid KAPLAN, Noble Singh Referring Physician: Not on Staff, Referring MD [...] oral tablet 3.125 mg, Tablet, By Mouth, 02/15/21 9:00:00 EDT Start Date: 02/15/21 Stop Date: 02/15/21 Status: Completedcarvedilol 3.125 mg oral tablet 3.125 [...] 0 Refills, Maintenance, 02/09/21 11:36:00 EDT, Tablet, [facility]/pharmacy #[id number], Partial fill upon [...] EST Start Date: 05/23/19 Status: Ordered Results Radiology Reports Exam Date Time Procedure Performing Provider Status 02/06/21 8:20 PM Chest 2 Views Frontal and Lat Jessica Peace; Auth (Verified) Notes:(Chest 2 Views Frontal and Lat) Reason For Exam: Shortness of Breath RESULT: Chest 2 Views Frontal and Lat Chest 2 Views Frontal and Lat Reason: Shortness of Breath; Clinical Question(s): Pulmonary Edema COMPARISON: CT dated 10/05/2011 1 FINDINGS: LINES AND TUBES: Left-sided central line terminating in the right atrium. LUNGS AND PLEURA: Chronically elevated right hemidiaphragm. Clear lungs. Normal pulmonary vascularity. No pleural effusion. No pneumothorax. HEART, MEDIASTINUM AND RENATO: Heart is normal in size. Normal upper mediastinal and hilar contour. BONES AND SOFT TISSUES: No acute abnormality. Suspected chronic tendinopathy of the rotator cuff bilaterally and degenerative changes of the shoulder joints. IMPRESSION: No acute abnormality. WSN: [id number] Ordering Physician: Haja Rose Dictated By: Enrico Jackson MD Dictated Date/Time: 02/06/21 9:08 pm Reviewed By: Enrico Jackson MD Signed By: Enrico Jackson MD Signed Date/Time: 02/06/21 9:08 pm Transcribed By: CHELA Transcribed Date/Time: 02/06/21 9:05 pm Exam Date Time Procedure Performing Provider Status 02/06/21 4:21 PM XR Hip w/Pelvis 2-3 View Right Jessica Peace ; Auth (Verified) Notes:(XR Hip w/Pelvis 2-3 View Right) Reason For Exam: With Pain;TraumaRESULT: XR Hip w/Pelvis 2-3 View Right XR Hip w/Pelvis 2-3 View Right Hx of Present Illness: Increasing weakness s p fall; Reason: Trauma; With Pain; Clinical Question(s): Fracture COMPARISON: None. FINDINGS: Status post ORIF of a proximal right femur fracture. Heterotopic bone at the fracture site. No evidence of hardware complication. No evidence of acute fracture. Osteopenia. IMPRESSION: No evidence of acute fracture or hardware complication. Heterotopic bone at the proximal right femoral fracture site. Osteopenia. WSN: [id number] Ordering Physician: Von Singh Dictated By: Jayson Arroyo MD Dictated Date/Time: 02/06/21 4:33 pm Reviewed By: Jayson Arroyo MD Signed By: Jayson Arroyo MD Signed Date/Time: 02/06/21 4:33 pm Transcribed By: CHELA Transcribed Date/Time: 02/06/21 4:31 pm Vital Signs Most recent to oldest 1 2 3 [Reference Range]: Height 168 cm 168 cm 168 cm (02/15/21 3:20 AM) (02/14/21 11:15 PM) (02/14/21 7:05 PM) Weight 81.81 kg 81.81 kg 81.81 kg (02/06/21 7:07 PM) (02/06/21 3:37 PM) (02/06/21 2:4 4 PM) Oxygen Saturation [94-100 %] 98 % 100 % 98 % (02/15/21 7:00 AM) (02/15/21 3:20 AM) (02/14/21 11:15 PM) Pulse Rate [55-90 bpm] 64 bpm 64 bpm 58 bpm (02/15/21 7:55 AM) (02/15/21 7:00 AM) (02/15/21 3:20 A M) Body Mass Index [18.5-24.99] 28.99 28.99 *H* *H* (02/06/21 7:07 PM) (02/06/21 2:44 PM) Blood Pressure [90-138/55-84 mm 121/61 mm Hg 121/61 mm Hg 108/54 mm Hg Hg] (02/15/21 7:55 AM) (02/15/21 7:00 AM) (02/15/21 3:20 A M) Respiratory Rate [16-30 br/min] 18 br/min 18 br/min 20 br/min (02/15/21 7:00 AM) (02/15/21 3:20 AM) (02/14/21 11:15 PM) Temperature [96.8-100.4 DegF] 98.3 DegF 98.1 DegF 98 .7 DegF (02/15/21 7:00 AM) (02/15/21 3:20 AM) (02/14/21 11:15 PM) Liters per Minute 0 L/min (02/06/21 7:07 PM) Mode of Delivery (Oxygen) Room air Room air Room a ir (02/15/21 7:00 AM) (02/15/21 3:20 AM) (02/14/21 11:15 PM) Blood pressure sites Arm, left Arm, left Arm, left (02/15/21 7:00 AM) (02/15/21 3:20 AM) (02/14/21 11:15 PM) Temperature Route Oral Oral Oral (02/15/21 7:00 AM) (02/15/21 3:20 AM) (02/14/21 11:15 PM) Dry Weight 81.81 kg 81.81 kg 81.81 kg (02/06/21 7:07 PM) (02/06/21 3:37 PM) (02/06/21 2:4 4 PM) Social History Social History Type Response Smoking Status Former smoker, quit more sena n 30 days ago entered on: 06/18/19 Sex Male
--- OUTSIDE RECORDS SUMMARY | 2022-04-08 18:32 | XMS_ITS | Continuity of Care Document ---
:1955 Author Organization [facility] Address [address] [place] [address]- Care Team Providers Name Role Phone Name Rayray KAPLAN [id number] [address] [place], [place] [address] Attending Physician: Chan Thompson MD Admitting Physician: Chan Thompson MD Referring Physician: Jayson Sherman MD Allergies, Adverse Reactions, Alerts No Known [...]
--- OUTSIDE RECORDS SUMMARY | 2022-04-08 18:33 | XMS_ITS | Continuity of Care Document ---
:1955 Author Organization [facility] Address [address] [place] [address]- Care Team Providers Name Role Phone Name Rayray KAPLAN Primary Care Physician Encounter [facility] [place] Date(s): 02/13/21 - 03/15/[address] [address] Attending Physician: Not on Staff, Attending MD Admitting Physician: Not on Staff, Admitting MD Referring Physician: Not on Staff, Referring [...] 0 Refills, Maintenance, 02/09/21 11:36:00 EDT, Tablet, [facility]/pharmacy #[id number], Partial fill upon patient request if [...] 0 Refills, Soft Stop, 10/30/20 10:37:00 EDT, [facility]/pharmacy #[id number], Partial fill upon patient request if [...]
--- OUTSIDE RECORDS SUMMARY | 2022-04-08 18:33 | XMS_ITS | Continuity of Care Document ---
:1955 Author Organization [facility] Address [address] [address]- Care Team Providers Name Role Phone Name Rayray KAPLAN Primary Care Physician Encounter [facility] [place] Date(s): 10/07/20 - 11/13/20 [facility] [address] [place] [address] Attending Physician: Gualberto Hernandez MD Referring [...] 0 Refills, Soft Stop, 10/30/20 10:37:00 EDT, [facility]/pharmacy #[id number], Partial fill upon patient request if the [...]
--- OUTSIDE RECORDS SUMMARY | 2022-04-08 18:33 | XMS_ITS | Encounter Summary ---
:1955 Author Care Team Providers Name Role Phone Dez Childers 3[address] Floor OTHER [phone] Reason for Visit Acute Rounding Visit Assessment and Plan 1. Congestive heart failure bumex 1 mg bid daily weights 2. Gastroesophageal reflux disease with out esophagitis monitor for symptoms 3. Chronic anemia monitor labs Discussion Note: None recorded.Patient educational handouts: No information available. Plan of Care Reminders Provider Appointments None recorded. ? ? Lab None recorded. ? ? Referral None recorded. ? ? Procedures None recorded. ? ? Surgeries None recorded. ? ? Imaging None recorded. ? ? Medications No Medications Reported Notes: med list reviewed, may not be u p to date, see MAR for complete list. Medications Administered None recorded. Vitals Height Blood Pressure 5 ft 4 in 138/76 mm[Hg] Results Lab Results None recorded. Allergies Code Code System Name Reaction Severity Onset NKDA ? ? ? Problems Name Status Onset Date Source ? Type 2 Diabetes Mellitus Active 04/05/2019 ? Mixed Hyperlipidemia Active 04/05/2019 ? Chronic Anemia Active 04/05/2019 ? Depressive Disorder Active 04/05/2019 ? Essential Hypertension Active 04/05/2019 ? Acute non-ST Segment Elevation Myocardial Infarction Active 04/05/2019 ? Congestive Heart Failure Active 04/05/2019 ? Pneumonia Active 04/05/2019 ? Gastroesophageal Reflux Disease without Esophagitis Active 04/05/2019 ? Chronic Kidney Disease Active 04/05/2019 ? Coronary Arteriosclerosis Active 04/06/2019 ? Closed Fracture of Right Femur Active 04/06/2019 ? End-stage Renal Disease Active 02/26/2022 ? Procedures None recorded. Vaccine List None recorded. Social History Tobacco Smoking Status Never Smoker What is your level of alcohol None consumption? Do you or have you ever used Never used smokeless tobacco smokeless tobacco? On what date was tobacco Notes: NA nev er smoker cessation counseling provided? What is your code status? Full Code How much tobacco do you chew? none Do you have a medical power of Y Notes: has a hcp compliance attorney? What was the date of your most 02/26/2022 recent tobacco screening? Do you or have you ever used Never used electronic e-cigarettes or vape? cigarettes Do you have an advanced Y directive? Do you use any illicit or N Notes: histo ry of recreational drugs? cocaine use Where do you live? Notes: lives home alone, ?7 steps, elevator Functional Status Unknown. Past Encounters 03/08/2022 Congestive Heart Failure; Gastroesophage al Reflux Disease without Esophagitis; Chronic Anemia Uzma Lara RET[employer] FURNACE OPERATOR: [address] [place] [address], Ph. 03/05/2022 End-stage Renal Disease; Type 2 Diabetes Mellitus Uzma Lara NP: [address] [place] [address], Ph. 03/02/2022 Pneumonia; Acute on Chronic Diastolic He art Failure; Asthenia; Coronary Arteriosclerosis; Type 2 Diabetes Mellitus; Paroxysmal Atrial Fibrillation Laura Walker MD: [address] [facility] [address], Ph. 03/01/2022 End-stage Renal Disease; Gastroesophagea l Reflux Disease without Esophagitis; Pneumonia Uzma Lara [employer] F[employer]NACE OPERATOR: [address] [place] [address], Ph. 02/26/2022 Pneumonia; Congestive Heart Failure; Chr onic Kidney Disease; Chronic Anemia; Type 2 Diabetes Mellitus; Essential Hypertension; Depressive Disorder; Gastroesophageal Reflux Disease without Esophagitis; M ixed Hyperlipidemia; Coronary Arterioscl erosis; End-stage Renal Disease Uzma Lara [employer] F[employer]NACE OPERATOR: [address] [place] [address], Ph. History of Present Illness Note: <div>seen today for acute rounding visit, CAOx2 sitting up in bed, eating breakfast, good po intake, tolerating HD, no edema lungs clear, walking with walker and supervision, medically stable and due for discharge</div>Review of Systems: ROS as noted in the HPI Review of Systems None recorded. Physical Exam ? General Adult Exam Reported By: Patient Constitutional: General Appearance: healthy- appearing, well-developed. Level of Distress: NAD. Ambulation: l imited ambulation, ambulation with walker, in wheelchair; in eelchair at time of visit, ambulates with supervision Psychiatric: Insight: ; insight limited. Mental Status: active and alert, normal mood, normal affect. Orienta tion: to place, to person. Memory: recent memory normal, remote memory normal Head: Head: normocephalic, atrauma tic Eyes: Lids and Conjunctivae: non-i njected. Sclerae: non-icteric ENMT: Hearing: no hearing loss. Or opharynx: moist mucous membranes Neck: Neck: supple Lungs: Auscultation: breath sounds normal, good air movement, no wheezing, no rales/crackles, no rhonch i Cardiovascular: Heart Auscultation: RRR Abdomen: Bowel Sounds: normal, soft, non-distended, no tenderness Musculoskeletal:: Extremities: no cyanosis, no edema. Joints, Bones, and Muscles (normal) normal movement of all extremities Neurologic: Cranial Nerves: grossly inta ct Skin: Inspection and palpation: no rash, no ulcer; permacath left chest Notes: <div>02/24 wbc 1.6 h/h 10.3/3 0.6 plt 289 na 132 k 3.7 bun 25 </div><div>covid negative, v accine +</div><div>02/25 wbc 10.3 h/h 10.1/30.8 plt 251 na 132 k 3 .9 bun 34 creat 4.95 gfr 12</div><div>03/01 wbc 10 h/h 9.9/30.3 plt 265 na 136 k 3.6 bun 24 creat 4.52 gfr 13</div><div> 03/08 wbc 8.5 h/h 11.7/36.3 plt 207 na 135 k 3.9 bun 31 creat 4.91 gfr 12</div>
--- OUTSIDE RECORDS SUMMARY | 2022-04-08 18:33 | XMS_ITS | Encounter Summary ---
:1955 Author Care Team Providers Name Role Phone Dez Childers 3rd Floor OTHER [phone] Reason for Visit Admitting H&P admission history and physical examinati on Assessment and Plan 1. Pneumonia azithromycin 500 mg daily through cefuroxime 250 mg bid through 03/02/22 will monitor and support as needed 2. Acute on chronic diastolic heart radha lure improved: bumetanide 1 mg bid carvedilol 3.125 mg bid will monitor fu cardiology 3. Asthenia PT/OT/CARD GAME OPERATOR will monitor and support as needed 4. Coronary arteriosclerosis ASA 81 mg daily carvedilol 3.125 mg bid atorvastatin 80 mg daily will monitor fu cardiology 5. Type 2 diabetes mellitus insulin glargine 15U daily insulin aspart per sliding scale will monitor 6. Paroxysmal atrial fibrillation apixaban 5 mg bid carvedilol 3.125 mg bid for rate control amiodarone 200 mg daily will monitor Discussion Note: None recorded.Patient educational handouts: No information available. Plan of Care Reminders Provider Appointments None recorded. ? ? Lab None recorded. ? ? Referral None recorded. ? ? Procedures None recorded. ? ? Surgeries None recorded. ? ? Imaging None recorded. ? ? Medications No Medications Reported Notes: med list reviewed, may not be u p to date, see SEP for complete list. Medications Administered None recorded. Vitals Height Blood Pressure 5 ft 4 in 118/74 mm[Hg] Results Lab Results None recorded. Allergies [...] Smoking Status Never Smoker What is your code status? Full Code How much tobacco do you chew? none Do you have a medical power of Y Notes: has a hcp family law attorney? What was the date of your most 02/26/2022 recent tobacco screening? Do you have an advanced Y directive? Do you or have you ever used Never used electronic e-cigarettes or vape? cigarettes Do you use any illicit or N Notes: histo ry of recreational drugs? cocaine use Where do you live? Notes: lives home alone, ?7 steps, elevator What is your level of alcohol None consumption? Do you or have you ever used Never used smokeless tobacco smokeless tobacco? On what date was tobacco Notes: NA [facility] er smoker cessation counseling provided? Functional Status Unknown. Past Encounters 03/02/2022 Pneumonia; Acute on Chronic Diastolic He art Failure; Asthenia; Coronary Arteriosclerosis; Type 2 Diabetes Mellitus; Paroxysmal Atrial Fibrillation Laura Walker MD: [address] [facility] [address], Ph. 03/01/2022 End-stage Renal Disease; Gastroesophagea l Reflux Disease without Esophagitis; Pneumonia Uzma Lara VOLUNTEER MANAGER: [address] [place] [address], Ph. 02/26/2022 Pneumonia; Congestive Heart Failure; Chr onic Kidney Disease; Chronic Anemia; Type 2 Diabetes Mellitus; Essential Hypertension; Depressive Disorder; Gastroesophageal Reflux Disease without Esophagitis; M ixed Hyperlipidemia; Coronary Arterioscl erosis; End-stage Renal Disease Uzma Lara VOLUNTEER MANAGER: [address] [place] [address], Ph. History of Present Illness Note: <div>This 67 year old man was admitted to [facility] on 02/25/22 for rehab and continued care.</div><div>
</div><div>Medical history is remarkable for ESRD on HD,HFpEF, DM, PAF, CAD, hypertension, PAF</div><div>
</div><div>Patient presented to ER at [facility] on 02/21/22 from dialysis. He was not feeling well and hadmultiple episodes of vomiting. Evaluation in ER remarkable for WBC 24.6, hemoglobin 9.4, lactic acid 2.5, magnesium 1.6, troponin 478, increased to 480, and BNP of 1842. </div><div>
</div><div>Chest/abd CT showed diffuse groundglass opacities with interlobular septal thickening - consider pulmonary edema, and/or atypical/viral infection. Mediastinal lymphadenopathy increased form priors, of uncertain etiology. Note from radiology included description of endometrium be ing abnormally thickened for postmenopausal state. (Note that this is a cis-male patient.) Mild gallbladder wall thickening without GB distension, equivocal for acute cholecystitis; consider US. Markedcircumferential urinary bladder wall thickening, suspicious for cystitis.</div><div>
</div><div>Patient was diagnosed with sepsis, pneumonia, fluid overload, and probable UTI. He was treated with antibiotics and HD to remove excess fluid. PT recommended STR.</div><div>
</div><div>MOLST: full code - signed 02/26/22</div>Review of Systems: ROS as noted in the HPI Review of Systems ? Notes: <div>All others reviewed and negative unless otherwise stated in the HPI.</div> Physical Exam ? General Adult Exam Reported By: Patient Constitutional: General Appearance: healthy- appearing, well-developed. Level of Distress: NAD. Ambulation: l imited ambulation, ambulation with walker, in wheelchair; in eelchair at time of visit Psychiatric: Insight: ; insight limited. Mental Status: active and alert, normal mood, normal affect. Orienta tion: to person. Memory: recent memory normal, remote [...] k 3.6 bun 24 creat 4.52 gfr 13</div>
--- OUTSIDE RECORDS SUMMARY | 2022-04-08 18:33 | XMS_ITS | Encounter Summary ---
:1955 Author Care Team Providers Name Role Phone Dez Childers 3rd Floor OTHER [phone] Reason for Visit Acute Rounding Visit Assessment and Plan 1. Pneumonia recovered zpak to 03/04 Cefuroxime 250 mg 12 hr to 03/04 monitor resp status 2. End-stage renal disease HD 3xweek permacath left chest Discussion Note: None recorded.Patient educational handouts: No [...] list. Medications Administered None recorded. Vitals Height Weight BMI Blood Pressure 5 ft 4 in 140.4 lbs 24.1 kg/m2 137/78 mm[Hg] Results Lab Results None recorded. Allergies [...] power of Y Notes: has a hcp employment attorney? What was the date of your [...] steps, elevator Functional Status Unknown. Past Encounters 03/11/2022 Pneumonia; End-stage Renal Disease Uzma Lara DIRECTOR CALL: [address] [place] [address], Ph. 03/08/2022 Congestive Heart Failure; Gastroesophage al Reflux Disease without Esophagitis; Chronic Anemia Uzma Lara DIRECTOR CALL: [address] [place] [address], Ph. 03/05/2022 End-stage Renal Disease; Type 2 Diabetes Mellitus Uzma Lara NP: [address] [place] [address], Ph. 03/02/2022 Pneumonia; Acute on Chronic Diastolic He art Failure; Asthenia; Coronary Arteriosclerosis; Type 2 Diabetes Mellitus; Paroxysmal Atrial Fibrillation Laura Walker MD: [address] [facility] [place] [address], Ph. 03/01/2022 End-stage Renal Disease; Gastroesophagea l Reflux Disease without Esophagitis; Pneumonia Uzma Lara DIRECTOR CALL: [address] [place] [address], Ph. 02/26/2022 Pneumonia; Congestive Heart Failure; Chr onic Kidney Disease; Chronic Anemia; Type 2 Diabetes Mellitus; Essential Hypertension; Depressive Disorder; Gastroesophageal Reflux Disease without Esophagitis; M ixed Hyperlipidemia; Coronary Arterioscl erosis; End-stage Renal Disease Uzma Lara DIRECTOR CALL: [address] [place] [address], Ph. History of Present Illness Note: <div>seen today for acute rounding visit- CAOx2 sitting up in bed, no distress or discomfort noted or reported, good po intake, medically stable</div> Review of Systems: ROS as noted in the HPI Review of Systems None recorded. Physical Exam ? General Adult Exam Reported By: Patient Constitutional: General Appearance: healthy- appearing, well-developed. Level of Distress: NAD. Ambulation: l imited ambulation, ambulation with walker, in wheelchair; in eehair at time of visit, ambulates with supervision [...]
--- OUTSIDE RECORDS SUMMARY | 2022-04-08 18:33 | XMS_ITS | Continuity of Care Document ---
:1955 Author Organization [facility] Address [address] [facility] [address] [place] [address]- Care Team Providers Name Role Phone Name Rayray KAPLAN Primary Care Physician Encounter [facility] [place] Date(s): 06/20/20 - 07/20/20 [facility] Card[facility] [address] [facility] [address] [place] [address]- Allergies, Adverse Reactions, Alerts No Known Medication [...]
--- OUTSIDE RECORDS SUMMARY | 2022-04-08 18:33 | XMS_ITS | Encounter Summary ---
:1955 Author Care Team Providers Name Role Phone Dez Childers 3rd Floor OTHER [phone] Reason for Visit Acute Rounding Visit Assessment and Plan 1. End-stage renal disease HD 3xweek permacath left chest 2. Type 2 diabetes mellitus lantus 15 units q hs sliding scale insulin follow up with PCP Discussion Note: None recorded.Patient educational handouts: No [...] Height Blood Pressure 5 ft 4 in 138/72 mm[Hg] Results Lab Results None recorded. Allergies [...] power of Y Notes: has a hcp patent prosecution attorney? What was the date of your [...] steps, elevator Functional Status Unknown. Past Encounters 03/05/2022 End-stage Renal Disease; Type 2 Diabetes Mellitus Uzma Lara SOCIAL WORKER PALLIATIVE CARE: [address] [place] [address], Ph. 03/02/2022 Pneumonia; Acute on Chronic Diastolic He art Failure; Asthenia; Coronary Arteriosclerosis; Type 2 Diabetes Mellitus; Paroxysmal Atrial Fibrillation Laura Walker MD: [address] [place] [address], Ph. 03/01/2022 End-stage Renal Disease; Gastroesophagea l Reflux Disease without Esophagitis; Pneumonia Uzma Lara SOCIAL WORKER PALLIATIVE CARE: [address] [place] [address], Ph. 02/26/2022 Pneumonia; Congestive Heart Failure; Chr onic Kidney Disease; Chronic Anemia; Type 2 Diabetes Mellitus; Essential Hypertension; Depressive Disorder; Gastroesophageal Reflux Disease without Esophagitis; M ixed Hyperlipidemia; Coronary Arterioscl erosis; End-stage Renal Disease Uzma Lara SOCIAL WORKER PALLIATIVE CARE: [address] [place] [address], Ph. History of Present Illness Note: <div>seen today for acute rounding visit, CAOx2 prompting for place, lungs clear, tolerating HD, no complaints of discomfort or distress and none noted, good po intake</div>Review of Systems: ROS as noted in the HPI Review of Systems None recorded. Physical Exam ? General Adult Exam Reported By: Patient Constitutional: General Appearance: healthy- appearing, well-developed. Level of Distress: NAD. Ambulation: l imited ambulation, ambulation with walker, in wheelchair; in wh eelchair at time of visit Psychiatric: Insight: [...]
--- OUTSIDE RECORDS SUMMARY | 2022-04-08 18:33 | XMS_ITS | Continuity of Care Document ---
:1955 Author Organization [facility] Address [address] [place] [address]- Care Team Providers Name Role Phone Name Rayray KAPLAN Primary Care Physician Encounter [place] Date(s): 04/16/20 - 05/16/20 [facility] [address] [place] [id number] Allergies, Adverse Reactions, Alerts No Known Medication [...]
--- OUTSIDE RECORDS SUMMARY | 2022-04-08 18:33 | XMS_ITS | Continuity of Care Document ---
:1955 Author Organization [facility] Address [address] [place] [address]- Care Team Providers Name Role Phone Name Rayray KAPLAN Primary Care Physician Encounter [facility] [place] Date(s): 06/11/20 - 07/11/20 [facility] [address] [place] [address]- Allergies, Adverse Reactions, Alerts No Known Medication [...]
--- OUTSIDE RECORDS SUMMARY | 2022-04-08 18:33 | XMS_ITS | Encounter Summary ---
:1955 Author Care Team Providers Name Role Phone Dez Childers 3rd Floor OTHER [phone] Reason for Visit Acute Rounding Visit Assessment and Plan 1. End-stage renal disease HD 3xweek permacath left chest 2. Gastroesophageal reflux disease with out esophagitis monitor for symptoms 3. Pneumonia zpak to 03/04 Cefuroxime 250 mg 12 hr to 03/04 monitor resp status Discussion Note: None recorded.Patient educational handouts: No [...] Height Blood Pressure 5 ft 4 in 100/63 mm[Hg] Results Lab Results None recorded. Allergies [...] power of Y Notes: has a hcp corporate associate attorney? What was the date of your [...] steps, elevator Functional Status Unknown. Past Encounters 03/01/2022 End-stage Renal Disease; Gastroesophagea l Reflux Disease without Esophagitis; Pneumonia Uzma Lara, LEAN MANUFACTURING COORDINATOR: [address] [facility] , [place] [address], Ph. 02/26/2022 Pneumonia; Congestive Heart Failure; Chr onic Kidney Disease; Chronic Anemia; Type 2 Diabetes Mellitus; Essential Hypertension; Depressive Disorder; Gastroesophageal Reflux Disease without Esophagitis; M ixed Hyperlipidemia; Coronary Arterioscl erosis; End-stage Renal Disease Uzma Lara LEAN MANUFACTURING COORDINATOR: [address] [place] [address], Ph. History of Present Illness Note: <div>seen today for acute rounding visit, CAOx3 sitting up in bed, tolerating current medication regimen, and dialysis, lungs clear, eating and drinking fairly well, he denies any discomfort or distress</div>Review of Systems: ROS as noted in the HPI Review of Systems None recorded. Physical Exam ? General Adult Exam Reported By: Patient Constitutional: General Appearance: healthy- appearing, well-developed. Level of Distress: NAD. Ambulation: l imited ambulation, ambulation with walker, in wheelchair; in be d, contact guard with PT Psychiatric: Insight: ; insight limited. Mental Status: active and alert, normal mood, normal affect. Orienta tion: to person. Memory: recent memory normal, remote memory normal Head: Head: normocephalic, atrauma tic Eyes: Lids and Conjunctivae: non-i njected. Sclerae: non-icteric ENMT: Hearing: no hearing loss. Or opharynx: moist mucous membranes Neck: Neck: FROM Lungs: Auscultation: breath sounds normal, good air [...]
--- OUTSIDE RECORDS SUMMARY | 2022-04-08 18:33 | XMS_ITS | Continuity of Care Document ---
:1955 Author Organization [facility] Cardiac Surgery Address [address] [address]- Care Team Providers Name Role Phone Name Rayray KAPLAN Primary Care Physician Encounter [facility] [place] Date(s): 02/02/21 - 03/26/21 [facility] Card[facility] [address] [address]- Attending Physician: Gualberto Hernandez MD Referring Physician: [...] 0 Refills, Maintenance, 02/09/21 11:36:00 EDT, Tablet, [facility]/pharmacy #[id number], Partial fill upon patient [...] 0 Refills, Soft Stop, 10/30/20 10:37:00 EDT, [facility]/pharmacy #[id number], Partial fill upon patient [...]
--- OUTSIDE RECORDS SUMMARY | 2022-04-08 18:33 | XMS_ITS | Continuity of Care Document ---
:1955 Author Organization [facility] Address [address] [place] [address]- Care Team Providers Name Role Phone Name Rayray KAPLAN Primary Care Physician Encounter [facility] [place] Date(s): 09/23/20 - 10/23/20 [facility] [address] [place], [place] [address] Attending Physician: Rosa Perez Admitting Physician: Rosa [...]
--- OUTSIDE RECORDS SUMMARY | 2022-04-08 18:33 | XMS_ITS ---
:1955 Author Care Team Providers Name Role Phone JEREMIAH SAUCEDO 3RD FLOOR OTHER [phone] Allergies Code Code System Name Reaction Severity Status Onset NKDA ? Medications No Medications Reported Notes: med list reviewed, may not be u p to date, see MAR for complete list. Problems Name Status Onset Date Source ? [...] Disease Active 02/26/2022 ? Procedures None recorded. Results Lab Results None recorded. Past Encounters 03/16/2022 Pneumonia; Congestive Heart Failure; Chr onic Kidney Disease; Chronic Anemia; Type 2 Diabetes Mellitus; Essential Hypertension; Depressive Disorder; Gastroesophageal Reflux Disease without Esophagitis; M ixed Hyperlipidemia; Coronary Arterioscl erosis; End-stage Renal Disease Uzma Lara SUPERVISOR SCRAP PREPARATION: [address] [facility] , [place] [address], Ph. 03/11/2022 Pneumonia; End-stage Renal Disease Uzma Lara SUPERVISOR SCRAP PREPARATION: [address] [facility] , [place] [address], Ph. 03/08/2022 Congestive Heart Failure; Gastroesophage al Reflux Disease without Esophagitis; Chronic Anemia Uzma Lara SUPERVISOR SCRAP PREPARATION: [address] [facility] , [place] [address], Ph. 03/05/2022 End-stage Renal Disease; Type 2 Diabetes Mellitus Uzma Lara NP: [address] [facility] , [place] [address], Ph. 03/02/2022 Pneumonia; Acute on Chronic Diastolic He art Failure; Asthenia; Coronary Arteriosclerosis; Type 2 Diabetes Mellitus; Paroxysmal Atrial Fibrillation Laura Walker MD: [address] [facility] [place] [address], Ph. 03/01/2022 End-stage Renal Disease; Gastroesophagea l Reflux Disease without Esophagitis; Pneumonia Uzma Lara NP: [address] [facility] , [place] [address], Ph. 02/26/2022 Pneumonia; Congestive Heart Failure; Chr onic Kidney Disease; Chronic Anemia; Type 2 Diabetes Mellitus; Essential Hypertension; Depressive Disorder; Gastroesophageal Reflux Disease without Esophagitis; M ixed Hyperlipidemia; Coronary Arterioscl erosis; End-stage Renal Disease Uzma Lara SUPERVISOR SCRAP PREPARATION: [address] [facility] , [place] [address], Ph. Social History Tobacco Smoking Status Never Smoker Vaccine List None recorded. Plan of Care Reminders Provider Appointments None recorded. ? ? Lab None recorded. ? ? Referral None recorded. ? ? Procedures None recorded. ? ? Surgeries None recorded. ? ? Imaging None recorded. ? ? Vitals 03/16/2022 10:23AM Discharge Summary Height Blood Pressure 5 ft 4 in 148/80 mm[Hg] 03/11/2022 11:31AM Acute Rounding Visit Height Weight BMI Blood Pressure 5 ft 4 in 140.4 lbs 24.1 kg/m2 137/78 mm[Hg] 03/08/2022 09:39AM Acute Rounding Visit Height Blood Pressure 5 ft 4 in 138/76 mm[Hg] 03/05/2022 12:08PM Acute Rounding Visit Height Blood Pressure 5 ft 4 in 138/72 mm[Hg] 03/02/2022 06:39AM Admitting H&P Height Blood Pressure 5 ft 4 in 118/74 mm[Hg] 03/01/2022 10:36AM Acute Rounding Visit Height Blood Pressure 5 ft 4 in 100/63 mm[Hg] 02/26/2022 01:42PM Initial Intake Note Height Weight BMI Blood Pressure 5 ft 4 in 141 lbs 24.2 kg/m2 100/63 mm[Hg] 04/18/2019 08:31AM Discharge Summary Blood Pressure 132/68 mm[Hg] 04/16/2019 01:35PM Acute Rounding Visit Blood Pressure 130/70 mm[Hg] 04/09/2019 09:16AM Acute Rounding Visit Blood Pressure 156/81 mm[Hg] 04/06/2019 11:23AM Admitting H&P Blood Pressure 168/72 mm[Hg] 04/05/2019 12:47PM Initial Intake Note Blood Pressure 168/72 mm[Hg]
--- OUTSIDE RECORDS SUMMARY | 2022-04-08 18:33 | XMS_ITS | Continuity of Care Document ---
:1955 Author Organization [facility] Cardiac Surgery Address [address] [address]- Care Team Providers Name Role Phone Name Rayray KAPLAN Primary Care Physician Encounter [facility] Date(s): 09/13/19 - 09/23/19 [facility] [address] [place] [address] [facility] Attending Physician: Rosa Perez Admitting Physician: Rosa [...]
--- OUTSIDE RECORDS SUMMARY | 2022-04-08 18:33 | XMS_ITS | Continuity of Care Document ---
:1955 Author Organization [facility] Card[facility] Address [address] [address]- Care Team Providers Name Role Phone Name Rayray KAPLAN Primary Care Physician Encounter [facility] [place] Date(s): 08/14/20 - 09/19/20 [facility] [address] [place] [address] [place] [address]- Attending Physician: Gualberto Hernandez MD Referring Physician: Stnaley Aabrca MD Allergies, Adverse Reactions, Alerts No Known [...]
--- OUTSIDE RECORDS SUMMARY | 2022-04-08 18:33 | XMS_ITS | Continuity of Care Document ---
:1955 Author Organization [facility] Address [address] [address]- Care Team Providers Name Role Phone Name Rayray KAPLAN Primary Care Physician Encounter [facility] [place] Date(s): 04/08/21 - 05/13/21 [facility] Card[facility] [address] [address]- Attending Physician: Gualberto Hernandez MD Referring Physician: [...] 0 Refills, Maintenance, 02/09/21 11:36:00 EDT, Tablet, [facility]/pharmacy #[id number], Partial fill upon patient request [...] 0 Refills, Soft Stop, 10/30/20 10:37:00 EDT, [facility]/pharmacy #[id number], Partial fill upon patient request [...]
--- OUTSIDE RECORDS SUMMARY | 2022-04-08 18:33 | XMS_ITS | Continuity of Care Document ---
:1955 Author Organization [facility] Address [address] [place] [address]- Care Team Providers Name Role Phone Name Rayray KAPLAN [id number] Date[facility] 07/18/20 - 07/20/[address] [address] Discharge Disposition: A-D/C Home Attending Physician: Wenceslao Segura MD Admitting Physician: Wenceslao Segura MD Referring Physician: Frankie Abarca MD Allergies, [...] oral tablet 3.125 mg, Tablet, By Mouth, 07/20/20 9:00:00 EST Start Date: 07/20/20 Stop Date: 07/20/20 Status: CompletedEliquis 2.5 mg oral tablet 1 tablet = [...] Ordered Vital Signs Most recent to oldest 1 2 3 [Reference Range]: Height 162.56 cm 162.56 cm 162.56 cm (07/20/20 8:11 AM) (07/20/20 3:48 AM) (07/19/20 8:35 PM) Weight 67 kg 69.3 kg 71.8 kg (07/19/20 1:12 AM) (07/18/20 3:53 PM) (07/18/20 7:49 A M) Oxygen Saturation [94-100 %] 95 % 97 % 97 % (07/20/20 8:11 AM) (07/20/20 3:48 AM) (07/19/20 8:35 PM) Pulse Rate [55-90 bpm] 60 bpm 60 bpm 64 bpm (07/20/20 9:35 AM) (07/20/20 8:11 AM) (07/20/20 3:4 8 AM) Body Mass Index [18.5-24.99] 25.35 26.22 27. 17 *H* *H* *H* (07/19/20 1:12 AM) (07/18/20 3:53 PM) (07/18/20 7:38 A M) Blood Pressure [90-138/55-84 mm 117/63 mm Hg 117/63 mm Hg 124/69 mm Hg Hg] (07/20/20 9:35 AM) (07/20/20 8:11 AM) (07/20/20 3:4 8 AM) Respiratory Rate [16-30 br/min] 18 br/min 18 br/min 18 br/min (07/20/20 8:11 AM) (07/20/20 3:48 AM) (07/19/20 8:35 PM) Temperature [96.8-100.4 DegF] 98.3 DegF 98.3 DegF 98 .1 DegF (07/20/20 8:11 AM) (07/20/20 3:48 AM) (07/19/20 8:35 PM) Mode of Delivery (Oxygen) Room air Room air Room a ir (07/20/20 8:11 AM) (07/20/20 3:48 AM) (07/19/20 8:35 PM) Blood pressure sites Arm, right Arm, right Arm, right (07/20/20 8:11 AM) (07/20/20 3:48 AM) (07/19/20 8:35 PM) Temperature Route Oral Oral Oral (07/20/20 8:11 AM) (07/20/20 3:48 AM) (07/19/20 8:35 PM) Dry Weight 71.8 kg 71.8 kg (07/18/20 7:49 AM) (07/18/20 7:38 AM) Weight Obtained Via Bed scale Bed scale Standing sca le (07/19/20 1:12 AM) (07/18/20 3:53 PM) (07/18/20 7:49 A M) Dry Weight Obtained Via Standing scale Standing scale (07/18/20 7:49 AM) (07/18/20 7:38 AM) Social History Social History Type Response Smoking Status Former smoker, quit more sena n 30 days ago entered on: 06/18/19 Sex
--- OUTSIDE RECORDS SUMMARY | 2022-04-08 18:33 | XMS_ITS | Continuity of Care Document ---
:1955 Author Organization [facility] Address [address] [place] [address]- Care Team Providers Name Role Phone Name Rayray KAPLAN Primary Care Physician Encounter [facility] [place] Date(s): 05/30/20 - 06/29/20 [facility] [address] [place], [place] [address] Attending Physician: Rosa Perez Admitting Physician: [...]
--- OUTSIDE RECORDS SUMMARY | 2022-04-08 18:33 | XMS_ITS ---
:1955 External Reference #:[id number] Author Care Team Providers Name Role Phone Fredy Garay Primary Care Provider Unavailable Allergies Code Code System Name Reaction Severity Status Onset NKDA ? Medications Name Status Start Date Stop Date ? ? amiodarone 200 mg tablet Active ? Not di ilable amoxicillin 875 mg-potassium clavulanate 125 mg tablet Active ? Not available aspirin 81 mg tablet,delayed release Active ? Not available atorvastatin 80 mg tablet Active ? Not av ailable TAKE 1 TABLET BY MOUTH AT BEDTIME BD Ultra-Fine Original Pen Needle 29 gauge x 1/2 Active ? Not available INJECT 1 [address] IN[address]ADERMAL ROUTE 2 TIMES EVERY DAY benzonatate 100 mg capsule Active ? Not a vailable TAKE 1 CAPSULE BY MOUTH THREE TIMES DAILY NEEDED bumetanide 1 mg tablet Active ? Not avail able carvedilol 3.125 mg tablet Active ? Not a vailable cholecalciferol (vitamin D3) 50 mcg (2,000 unit) tablet Active ? Not available Eliquis 2.5 mg tablet Active ? Not availa ble TAKE 1 TABLET BY MOUTH TWICE DAILY IN THE MORNING AND IN THE EV ENING Eliquis 5 mg tablet Active ? Not availabl e fluoxetine 20 mg capsule Active ? Not di ilable FreeStyle Lancets 28 gauge Active ? Not a vailable USE TO TEST 3 TIMES A DAY FreeStyle Lite Strips Active ? Not availa ble USE TO TEST 3 TIMES A DAY Glutose-45 40 % oral gel Active ? Not di ilable Lantus Solostar U-100 Insulin 100 unit/mL (3 mL) Active ? Not available subcutaneous pen Novolog Flexpen U-100 Insulin aspart 100 unit/mL (3 mL) subcutan eous Active ? Not available INJECT SUBCUTANEOUSLY PER SLIDING SCALE BEFORE MEALS DIRECTED (BLOOD SUGAR 150-200-2 UNITS, 201-250-4 UNITS, 251-300-6 UNITS, 301-350-8 UNITS, >350-10 UNITS, >/= 400 CALL PCP) oxycodone 5 mg tablet Active ? Not availa ble TAKE 1 TABLET BY MOUTH EVERY 4 HOURS NEEDED FOR PAIN TRUEplus Lancets 33 gauge Active ? Not av ailable TEST BLOOD SUGAR THREE TIMES DAILY Problems None recorded. Procedures None recorded. Results Lab Results Date Name Specimen Result Interpretation Description Value Range Status Address ? 09/14/2021 SARS CoV 2 RNA ? No observation ? ? ? [facility] Reference (COVID-19), QL, recorded. Lab Women & skin drier-PCR, Infants: [address], Specimen [place] Past Encounters 09/14/2021 Respiratory Tract Congestion and Cough Elsi Ortiz MD: [address] [place] [phone], Ph. 09/13/2021 Cough Lopez Rich MD: [address] [place] [phone], Ph. Social History None recorded. Vaccine List None recorded. Plan of Care Reminders Provider Appointments None recorded. ? ? Lab None recorded. ? ? Referral None recorded. ? ? Procedures None recorded. ? ? Surgeries None recorded. ? ? Imaging None recorded. ? ? Vitals 09/14/2021 12:22PM Urgent Care Blood Pressure 116/64 mm[Hg] 09/13/2021 06:04PM Urgent Care Blood Pressure 124/70 mm[Hg]
--- OUTSIDE RECORDS SUMMARY | 2022-04-08 18:33 | XMS_ITS | Continuity of Care Document ---
:1955 Author Organization [facility] Address [address] [address]- Care Team Providers Name Role Phone Name Rayray KAPLAN Primary Care Physician [place] [facility] [place] 10[place]/20 [facility] [address] [place] [id number] Allergies, Adverse Reactions, Alerts No Known Medication [...]
--- OUTSIDE RECORDS SUMMARY | 2022-04-08 18:33 | XMS_ITS | Continuity of Care Document ---
:1955 Author Organization [facility] Address [address] [place] [address]- Care Team Providers Name Role Phone Name Rayray KAPLAN Primary Care Physician [place] [facility] [place] [id number] Date(s): 02/25/22 - 03/27/[address] [address] Attending Physician: Rita Ramos MD Admitting Physician: Rita Ramos MD Allergies, Adverse Reactions, Alerts No Known Allergies Immunizations Given and Recorded Vaccine Date [...] Refills, Maintenance, 02/09/21 11:36:00 EDT, Tablet, [facility]/pharmacy #[id number], Partial fill upon patient request [...] Refills, Soft Stop, 10/30/20 10:37:00 EDT, [facility]/pharmacy #[id number], Partial fill upon patient request [...] 30 days ago entered on: 06/18/19 Sex Care Team PersonnelName: Rayray Hart MD Address: [address] [place] [id number]
--- OUTSIDE RECORDS SUMMARY | 2022-04-08 18:33 | XMS_ITS | Continuity of Care Document ---
:1955 Author Organization [facility] Address [address] [address]- Care Team Providers Name Role Phone Name Rayray KAPLAN Primary Care Physician [place] [facility] [place] 02/20/21 - 03/22/21 [facility] Cardiac Surgery [address] [place] [address]- Allergies, Adverse Reactions, Alerts No Known Medication [...] 0 Refills, Maintenance, 02/09/21 11:36:00 EDT, Tablet, [facility]/pharmacy #[id number], Partial fill upon patient request [...] 0 Refills, Soft Stop, 10/30/20 10:37:00 EDT, [facility]/pharmacy #[id number], Partial fill upon patient request [...]
--- OUTSIDE RECORDS SUMMARY | 2022-04-08 18:33 | XMS_ITS | Continuity of Care Document ---
:1955 Author Organization [facility] Card[facility] Address [address] [address]- Care Team Providers Name Role Phone Name Rayray KAPLAN Primary Care Physician Encounter [facility] [place] Date(s): 09/02/20 - 10/02/20 [facility] Cardiac Surgery [address] [place] [id number] Allergies, Adverse Reactions, Alerts No Known [...]
--- OUTSIDE RECORDS SUMMARY | 2022-04-08 18:33 | XMS_ITS | Continuity of Care Document ---
:1955 Author Organization [facility] Cardiac [facility] Address [address] [address]- Care Team Providers Name Role Phone Name Rayray KAPLAN Primary Care Physician [place] [facility] [place] Date(s): 01/05/21 - 02/04/21 [facility] [address] [place] [id number] Allergies, Adverse Reactions, Alerts No [...] 2,000 units, Subcutaneous Injection, after dialysis, Per Dr. Daniel nephmiracle., 0 Refills, Maintenance, 09/03/20 11:43:00 EST, Partial [...] 0 Refills, Soft Stop, 10/30/20 10:37:00 EDT, [facility]/pharmacy #[id number], Partial fill upon patient request [...]
--- OUTSIDE RECORDS SUMMARY | 2022-04-08 18:33 | XMS_ITS | Continuity of Care Document ---
:1955 Author Organization [facility] Cardiac [facility] Address [address] [address]- Care Team Providers Name Role Phone Name Rayray KAPLAN Primary Care Physician [place] [facility] [place] 09[place]07/20 [facility] Cardiac [facility] [address] [place] [address] [place] [address]- Allergies, Adverse Reactions, Alerts No Known Medication [...]
--- OUTSIDE RECORDS SUMMARY | 2022-04-08 18:33 | XMS_ITS | Encounter Summary ---
:1955 Author Care Team Providers Name Role Phone Dez Childers 3rd Floor OTHER [phone] Reason for Visit Discharge Assessment and Plan 1. Pneumonia recovered zpak to 03/04 Cefuroxime 250 mg 12 hr to 03/04 monitor resp status 2. Congestive heart failure bumex 1 mg bid daily weights 3. Chronic kidney disease baseline creat around 2+ monitor labs HD 3xweek 4. Chronic anemia monitor labs 5. Type 2 diabetes mellitus lantus 15 units q hs sliding scale insulin follow up with PCP 6. Essential hypertension ASA 81 mg qd amlodipine 10 mg qd coreg 3.125 mg bid monitor bp 7. Depressive disorder monitor and chart any changes in mood o r behaviors 8. Gastroesophageal reflux disease with out esophagitis monitor for symptoms 9. Mixed hyperlipidemia atorvastatin 80 mg qd follow up with PCP 10. Coronary arteriosclerosis ASA 81 mg qd amiodarone 200 mg daily atorvastatin 80 mg qd eliquis 5 mg bid 11. End-stage renal disease HD 3xweek permacath left [...] Pressure 5 ft 4 in 148/80 mm[Hg] Results Lab Results None recorded. Allergies [...] power of Y Notes: has a hcp estate attorney? What was the date of your [...] steps, elevator Functional Status Unknown. Past Encounters 03/16/2022 Pneumonia; Congestive Heart Failure; Chr onic Kidney Disease; Chronic Anemia; Type 2 Diabetes Mellitus; Essential Hypertension; Depressive Disorder; Gastroesophageal Reflux Disease without Esophagitis; M ixed Hyperlipidemia; Coronary Arterioscl erosis; End-stage Renal Disease Uzma Lara OFFSET PRINTER: [address] [place] [phone], Ph. 03/11/2022 Pneumonia; End-stage Renal Disease Uzma Lara OFFSET PRINTER: [address] [place] [phone], Ph. 03/08/2022 Congestive Heart Failure; Gastroesophage al Reflux Disease without Esophagitis; Chronic Anemia Uzma Lara OFFSET PRINTER: [address] [place] [address], Ph. 03/05/2022 End-stage Renal Disease; Type 2 Diabetes Mellitus Uzma Lara NP: [address] [place] [phone], Ph. 03/02/2022 Pneumonia; Acute on Chronic Diastolic He art Failure; Asthenia; Coronary Arteriosclerosis; Type 2 Diabetes Mellitus; Paroxysmal Atrial Fibrillation Laura Walker MD: [address] [facility] [address], [place] [address], Ph. 03/01/2022 End-stage Renal Disease; Gastroesophagea l Reflux Disease without Esophagitis; Pneumonia Uzma Lara OFFSET PRINTER: [address] [facility] [address] , [place] [address], Ph. 02/26/2022 Pneumonia; Congestive Heart Failure; Chr onic Kidney Disease; Chronic Anemia; Type 2 Diabetes Mellitus; Essential Hypertension; Depressive Disorder; Gastroesophageal Reflux Disease without Esophagitis; M ixed Hyperlipidemia; Coronary Arterioscl erosis; End-stage Renal Disease Uzma Lara OFFSET PRINTER: [address] [facility] , [place] [address], Ph. History of Present Illness Note: <div>seen today for discharge summary-</div><div>67 yom admitted to for rehab after presenting to the hospital with general malaise, confusion, vomiting, rr 22 wbc 24.6, head Ct negative for acute process, CT C-spine negative for fracture3 or traumatic subluxation, chest CT showed diffuse ground glass opacities with interlobular septal thickening with differential consideration for pulmonary edema v. atypical/viral infection, abd Ct showed marked circumferential urinary bladderwall thickening. Tx with IV azithromycin and rocephin, weaned off O2, cardiology and nephrology evaluated and agreed with fluid overload, urine cultures negative.</div><div>
</div><div>CAOx1 mild confusion, lungs clear, left permacath intact, sitting up in bed, eating and drinking well, ambulated with walker and contact guard, due for discharge today</div>Review of Systems: ROS as noted in the [...]
--- OUTSIDE RECORDS SUMMARY | 2022-04-08 18:33 | XMS_ITS | Continuity of Care Document ---
:1955 Author Organization [facility] Cardiac [facility] Address [address] [address]- Care Team Providers Name Role Phone Name Rayray KAPLAN Primary Care Phys[id number] Date[facility]s): 09/01/20 - 09/08/20 [facility] Card[facility] [address] [place] [address] [place] [address]- Attending Physician: Gualberto Hernandez MD Referring Physician: [...]
--- OUTSIDE RECORDS SUMMARY | 2022-04-08 18:33 | XMS_ITS | Continuity of Care Document ---
:1955 Author Organization [facility] Address [address] [place] [address]- Care Team Providers Name Role Phone Name Rayray KAPLAN Primary Care Physician [place] [facility] [place] [id number] Date(s): 05/12/20 - 08/02/20 [facility] [address] [place] [address]- Attending Physician: Chan Thompson MD Admitting Physician: Chan Thompson MD Referring Physician: Rayray Hart MD Allergies, Adverse Reactions, Alerts No Known [...]
--- OUTSIDE RECORDS SUMMARY | 2022-04-08 18:33 | XMS_ITS | Continuity of Care Document ---
:1955 Author Organization [facility] Address [address] [place] [address]- Care Team Providers Name Role Phone Name Rayray KAPLAN Primary Care Physician Encounter [facility] [place] Date(s): 06/04/20 - 07/10/[address] [address] Attending Physician: Mamadou Haji MD Allergies, Adverse Reactions, [...]
--- OUTSIDE RECORDS SUMMARY | 2022-04-08 18:33 | XMS_ITS | Encounter Summary ---
:1955 Author Care Team Providers Name Role Phone Dez Childers 3rd Floor OTHER [phone] Reason for Visit Initial Intake Assessment and Plan 1. Pneumonia zpak to 03/04 Cefuroxime 250 mg [...] in 141 lbs 24.2 kg/m2 100/63 mm[Hg] Results Lab Results None recorded. [...] of Y Notes: has a hcp employment law attorney? What was the date of [...] steps, elevator Functional Status Unknown. Past Encounters 02/26/2022 Pneumonia; Congestive Heart Failure; Chr onic Kidney Disease; Chronic Anemia; Type 2 Diabetes Mellitus; Essential Hypertension; Depressive Disorder; Gastroesophageal Reflux Disease without Esophagitis; M ixed Hyperlipidemia; Coronary Arterioscl erosis; End-stage Renal Disease Uzma Lara CORE DRILLER HELPER: [address] [place] [address] , [place] [phone], Ph. History of Present Illness Note: <div>seen today for initial intake visit-</div><div>67 yom admitted to for rehab after presenting to the hospital with general malaise, confusion, vomiting, rr 22 wbc 24.6, head Ct negative for acute process, CT Cspine negative for fracture3 or traumatic subluxation, chest CT showed diffuse ground glass opacities with interlobular septal thickening with differential consideration for pulmonary edema v. atypical/viral infection, abd Ct shwed marked circumferential urinary bladder wall thickening. Tx with IV astihromycin and rocephin, weaned off O2, cardiology and nephrology evaluated and agreeed with fluid overload, urine cultures negative.</div><div>
</div><div>CAOx1 mild confusion, lungs clear, left permacath intact, sitting up in bed, ate well during todays meals, ambulated with walker and contact guard</div>Review of Systems: ROS as noted in the [...] 3 .9 bun 34 creat 4.95 gfr 12</div>
[2022-04-08 18:34] LABS: COVID-19 Test Negative (Negative)
[2022-04-08 18:35] LABS: Alanine Aminotransferase 18 U/L (0-40); Alkaline Phosphatase 104 U/L (39-117); Anion Gap 16 (12-20); Aspartate Amino Transferase 17 U/L (5-37); Bilirubin Direct 0.3 mg/dL (0.0-0.5); Bilirubin Total 0.6 mg/dL (0.0-1.0); Blood Urea Nitrogen 13 mg/dL (9-16); Calcium 8.8 mg/dL (8.4-10.2); Carbon Dioxide 28 mmol/L (22-29); Chloride 98 mmol/L (96-108); Creatinine Clr Calc Pharmacy 19.2; Estimated Glomerular Filt Rate 22; Glucose Random 79 mg/dL (60-115); Magnesium 1.6 mg/dL (1.6-2.6); Potassium 3.9 mmol/L (3.3-5.1); Sodium 138 mmol/L (135-145); Total Protein 8.2 g/dL (6.5-8.0)
[2022-04-08 18:36] LABS: SLIDE REVIEW VERIFIED
[2022-04-08 18:38] LABS: Troponin-I High Sensitivity 21.6 ng/L (<3.5-35.0)
--- NOTE | 2022-04-08 18:38 | PC.NURSE ---
patient vomited on shirt ,patient was clean up and change into hospital attire .
[2022-04-08] MEDS: ondansetron HCL 4 MG/2 ML VIAL IVPUSH (18:40)
--- NOTE | 2022-04-08 20:38 | PC.NURSE ---
spoke w pt's sister - will arrange transport home and call back.
[2022-04-08 20:50] VITALS: BP 145/69; PULSE 55; RESP 18; TEMP 36.6; O2SAT 95
== END 2022-04-08 21:22 | disposition home or self-care (01) ==
PROVIDERS: Emergency Provider Emergency Medicine; PCP Internal Medicine Geriatric Medicine
DX: R11.2 Nausea with vomiting, unspecified (principal); Z20.822 Contact with and (suspected) exposure to COVID-19; E11.22 Type 2 diabetes mellitus with diabetic chronic kidney disease; I13.2 Hypertensive heart and chronic kidney disease with heart failure and with stage 5 chronic kidney disease, or end stage renal disease; I50.9 Heart failure, unspecified; N18.6 End stage renal disease; Z99.2 Dependence on renal dialysis; I48.0 Paroxysmal atrial fibrillation; Z79.01 Long term (current) use of anticoagulants; Z79.02 Long term (current) use of antithrombotics/antiplatelets; Z79.4 Long term (current) use of insulin
CPT/HCPCS: 71045; 74176; 80048; 80076; 83735; 84484; 85025; 87635; 93005; 96374; 99284; J2405

== ENCOUNTER 2022-05-01 10:59 | Inpatient (IN) | payer OTHER, SELFPAY ==
[2022-05-01] VITALS (12 sets, daily range): BP systolic 115–196; BP diastolic 57–91; PULSE 59–81; RESP 14–22; TEMP 36–39.5; O2SAT 88–97; BMI 29.5
--- NOTE | 2022-05-01 | ECG_ITS ---
Test Reason : FEVER Blood Pressure : / mmHG Vent. Rate : 083 BPM Atrial Rate : 083 BPM P-R Int : 228 ms QRS Dur : 148 ms QT Int : 418 ms P-R-T Axes : 022 259 035 degrees QTc Int : 491 ms Sinus rhythm with 1st degree A-V block Right bundle branch block Left anterior fascicular block Abnormal ECG When compared with ECG of 01-MAY-2022 13:15, [place] interval has increased Right bundle branch block is now Present T wave inversion no longer evident in Anterolateral leads Referred By: Devorah Talbert Electronically Signed By:ARLIN SUAREZ MD
--- NOTE | 2022-05-01 | ECG_ITS ---
Test Reason : ABNORMAL EKG Blood Pressure : / mmHG Vent. Rate : 076 BPM Atrial Rate : 076 BPM P-R Int : 192 ms QRS Dur : 150 ms QT Int : 500 ms P-R-T Axes : 033 257 036 degrees QTc Int : 562 ms Normal sinus rhythm Right bundle branch block T-wave inversion in Anterior leads Abnormal ECG When compared with ECG of 01-MAY-2022 23:42, CT interval has decreased QT has lengthened T wave inversion more evident in Anterior leads Referred By: Devorah Talbert Electronically Signed By:ARLIN SUAREZ MD
--- NOTE | ~2022-05-01 | CT_ITS ---
EXAMINATION: CT ABDOMEN AND PELVIS WITHOUT CONTRAST CLINICAL INFORMATION: Significant anemia. Rule out retroperitoneal bleed. COMPARISON: April 08, 2022 TECHNIQUE: Multidetector volumetric imaging was performed from the superior aspect of the liver through the pubic symphysis. Sagittal and coronal reformatted images were obtained on the technologist's workstation. This CT examination was performed using dose optimization techniques as appropriate, variously including the following: *Automated exposure control *Adjustment of mA and/or kV according to patient size (this includes techniques or standardized protocols for targeted exams where dose is matched to indication/reason for exam; i.e. extremities or head) *Use of iterative reconstruction technique DLP: 464 mGy-cm FINDINGS: LUNG BASES: Since previous study the patient has developed bilateral small pleural effusions, left greater than right. There is bibasilar disease present as well likely related to atelectasis. The heart is enlarged. Coronary artery calcifications present. No pericardial effusion. LIVER, GALLBLADDER, AND BILIARY TREE: The liver is normal in size, shape, and attenuation. No focal hepatic lesion or biliary ductal dilatation is present. There are a few scattered calcified granuloma present. There is cholelithiasis present with some gallbladder wall thickening and irregular contour. No adjacent fluid collection is seen. Clinical correlation with possible acute cholecystitis is recommended. Ultrasound could be of help in further evaluation if patient has symptoms consistent with acute cholecystitis. PANCREAS: A tortuous splenic artery gives the appearance of pancreatic tail lesion however on coronal imaging and shows partially calcified splenic artery. SPLEEN: Unremarkable. ADRENAL GLANDS: Unremarkable. KIDNEYS AND URETERS: There is prominent perinephric stranding seen bilaterally. No hydronephrosis or collecting system calculi identified. Ureters appear unremarkable. No definite abnormal masses appreciated. BLADDER: Diffusely circumferentially thickened wall. GASTROINTESTINAL TRACT: No dilated loops of large or small bowel. No free air or free fluid appreciated. Rectosigmoid anastomosis appears unremarkable. Anastomosis at the terminal ileum appears unremarkable. The appendix is visualized and appears unremarkable. No pericolonic inflammatory change. ABDOMINAL WALL: No significant hernia is appreciated. No rectus hematoma identified. No retroperitoneal hemorrhage is seen. Right psoas muscle is atrophic. LYMPH NODES: No lymphadenopathy appreciated. VASCULAR: Prominent arterial calcified plaque evident. No abdominal aortic aneurysm. PELVIC VISCERA: No suspicious mass. OSSEOUS STRUCTURES: There is osteopenia visualized bones. Status post right hip pinning. No acute destructive bony lesion identified. CT/CT abdomen pelvis wo IV con IMPRESSION: 1. No evidence of retroperitoneal hemorrhage. 2. Cholelithiasis with gallbladder wall thickening and irregular contour. Clinical correlation with possible acute cholecystitis is recommended. Ultrasound could be of help in further evaluation if patient has symptoms consistent with acute cholecystitis. 3. Interval development of Bilateral small pleural effusions, left greater than right with bibasilar disease likely related to atelectasis. Fleischner guidelines were followed.
--- NOTE | ~2022-05-01 | US_ITS ---
EXAMINATION: US ABDOMEN LIMITED CLINICAL INFORMATION: Cholelithiasis with wall thickening on CT. Question cholecystitis. COMPARISON: CT abdomen and pelvis 05/01/2022. TECHNIQUE: Real-time imaging of the gallbladder. FINDINGS: GALLBLADDER: The gallbladder wall is thickened up to 6 mm. Multiple mobile echogenic gallstones are present. No reported sonographic Silverman's sign. Per the testing manager's notes, the patient was not nothing by mouth. COMMON BILE DUCT: Normal in caliber measuring 0.3 cm in diameter. US/US abdomen limited IMPRESSION: There are gallstones and abnormal gallbladder wall thickening up to 6 mm in diameter. The appearance is nonspecific, particularly given there was no reported sonographic Silverman's sign (focal tenderness upon imaging of the gallbladder).
--- NOTE | ~2022-05-01 | XR_ITS ---
EXAMINATION: XR CHEST CLINICAL INFORMATION: Weakness. COMPARISON: 04/08/[address] scan TECHNIQUE: Frontal view of the chest was obtained. FINDINGS: Support devices: Large for central venous catheter with tip terminating overlying the right atrium without interval change. Mild coarsened interstitial markings without significant change. The heart and mediastinal structures are unremarkable. XR/XR chest 1V IMPRESSION: No acute cardiopulmonary process.
--- NOTE | ~2022-05-01 | XR_ITS ---
EXAMINATION: XR CHEST CLINICAL INFORMATION: Dyspnea. COMPARISON: 05/01/2022 chest TECHNIQUE: Frontal view of the chest was obtained. FINDINGS: Support devices: Left-sided large-bore central venous catheter with tip terminating at the level the right atrium without abnormality. Increased opacification is seen in the left lung base. The left upper lung field and right lung are clear. The heart and mediastinal structures are unremarkable. XR/XR chest 1V IMPRESSION: Increased opacification at the left lung base suggesting infiltrate and/or small left pleural effusion.
--- NOTE | 2022-05-01 11:07 | ED.WEAKNESS ---
HPI - Weakness General Chief complaint: Weakness Stated complaint: GEN WEAKNESS PER EMS Time Seen by Provider: 05/01/22 11:04 Source: patient and EMS Mode of arrival: EMS Limitations: no limitations History of Present Illness HPI Narrative: 67 yo male with history of ESRD on HD T/Th/Sat x3 years via left chest PermCath, HFrEF (EF 35-40%), HTN, DM on insulin, CAD with ischemic cardiomyopathy, paroxysmal afib on Eliquis, hx PNA, who presented to the ER with not feeling well, generalized weakness and dark UOP for the last 3 days. He did not go to HD today and decided to come to the ER for evaluation. He states for the last 3 days he has been having burning and pain with urination. He urinates multiple times per day despite being a dialysis patient. He is incontinent and wears briefs. He noticed when he changes his briefs the urine was dark and almost black. He is adamant this was not stool. Last BM was yesterday and was brown diarrhea. No fevers or chills at home. No abdominal pain, nausea, vomiting. On EMS arrival patient was found to be hypoxic to 85% He was placed on 2L NC and brought to the ER for further evaluation. MD Complaint: generalized weakness Onset (ago): day(s) (3) Duration: progressively worsening Location: generalized Migration: none Severity: moderate Relieving factors: rest Exacerbating factors: exertion Associated symptoms: loss of appetite Related Data Home Medications Medication Instructions Recorded Confirmed amiodarone 200 mg tablet 1 tab PO QAM 02/20/22 02/20/22 apixaban 5 mg tablet (Eliquis) 1 tab PO BID 02/20/22 02/20/22 aspirin 81 mg tablet,delayed 1 tab PO DAILY 02/20/22 02/20/22 release bumetanide 1 mg tablet 1 tab PO BID 02/20/22 02/20/22 carvedilol 3.125 mg tablet 1 tab PO BID 02/20/22 02/20/22 cholecalciferol (vitamin D3) 50 1 tab PO DAILY 02/20/22 02/20/22 mcg (2,000 unit) tablet insulin aspart U-100 100 unit/mL ea subcut 02/20/22 (3 mL) subcutaneous pen (Novolog Flexpen U-100 Insulin aspart) insulin glargine 100 unit/mL (3 15 unit subcut DAILY 02/20/22 02/20/22 mL) subcutaneous pen (Lantus Solostar U-100 Insulin) Previous Rx's Medication Instructions Recorded azithromycin 500 mg tablet 500 mg PO DAILY 5 days #5 tabs 02/25/22 cefuroxime axetil 250 mg tablet 250 mg PO Q12H #10 tabs 02/25/22 prochlorperazine maleate 5 mg 5 mg PO TID PRN nausea and 04/08/22 tablet (Compazine) vomiting #10 tabs atorvastatin 80 mg tablet 80 mg PO BEDTIME #90 tabs 04/22/22 Allergies Allergy/AdvReac Type Severity Reaction Status Date / Time No Known Allergies Allergy Verified 04/08/22 17:45 Review of Systems Review of Systems: Constitutional: No Fever, No Chills ENT/Mouth: No sore throat, No Rhinorrhea, No Swallowing Difficulty Eyes: No Eye Pain, No Swelling, No Redness Cardiovascular: No Chest Pain, No SOB, No Orthopnea, No Edema Respiratory: No Cough, No Sputum, No Wheezing, No dyspnea Gastrointestinal: No Nausea, No Vomiting, No Diarrhea, No abdominal Pain Genitourinary: + Dysuria, No Urinary Frequency, No Hematuria, +Dark colored urine Musculoskeletal: No joint pain, No Myalgias Skin: No Skin Lesions, No rash Neuro:+ Weakness, No Numbness, + Dizziness, No Headache Psych: No Anxiety/Panic, No Depression Heme/Lymph: No Bruising, No Lymphadenopathy Endocrine: No Polyuria, No Polydipsia PMFSH Past Medical History Medical History Anemia Atherosclerotic cardiovascular disease Chronic heart failure with preserved ejection fraction Chronic kidney disease, unspecified CKD (chronic kidney disease) ESRD (end stage renal disease) on dialysis Essential hypertension PAF (paroxysmal atrial fibrillation) Type 2 diabetes mellitus with unspecified complications Surgical History History of cardiac catheterization (~07/18/20) History of colon resection Family History Family History Father Esophageal cancer Mother Diabetes Hypertension Social History Social History Household Members: Unknown / Unable to assess Housing: Unknown / Unable to assess Do you presently have visiting nurse or other home services: Yes Unable to assess alcohol history related to: Unknown Alcohol intake: former Patient Tobacco Use Status: Never used Tobacco Advance Directives: Yes Advance Directives on File: Yes Advance Directives Date on File: 09/21/21 service: No Current occupational status: unemployed Physical Exam Vital Signs: Vital Signs: Last Vital Signs Temp 98.4 F 05/01/22 11:10 Pulse 63 05/01/22 11:10 Resp 22 H 05/01/22 11:10 BP 115/57 L 05/01/22 11:10 Pulse Ox 95 05/01/22 11:10 O2 Del Method 05/01/22 11:10 BMI result Body Mass Index 29.5 Appearance: Alert. Oriented X3. No acute distress. Eyes: Pupils equal, round and reactive to light. ENT: Pharynx normal. Neck: Normal inspection. Neck supple. CVS: Normal heart rate and rhythm. Pulses normal. Left chest wall with permcath in place, no surrounding erythema or tenderness. Respiratory: No respiratory distress. Breath sounds normal. Abdomen: Soft and nontender. +BS x4 TEE: normal rectal tone, minimal stool in rectal vault, brown Skin: Skin warm and dry. Normal skin color. Normal skin turgor. No rashes. Extremities: No lower extremity edema. Neuro: Oriented X 3. Mild generalized weakness, nonfocal. strenght equal and symmetrical throughout Course Course Course Narrative: 67 yo male with signifiant medical history of multi-vessel CAD, ischemic CMP EF 35%, ESRD on HD, diabetes, coming in with vague complaints of not feeling well and dark, burning urine. Initially reportedly hypoxic 85%, no resp complaints, no chest pain. Hemodynamically stable. SpO2 93% on RA here - 2L NC increased to 99%. CXR, EKG, labs, UA pending. Reevaluation(s) Reevaluation #1: EKG with significant new ischemic changes. NO chest pain. Dr. polanco sent TT EKG. H/H with new significant anemia (has history of in the past) but big drop from Apr 01 to today. Question of black urine most likely melena even though he reports no black stools. Will give IV PPI x1, guiac stool. Hold Eliquis and get blood consent. Nephro paged to arrange HD. Reevaluation #2: Spoke to both Dr. Schmitt and Dr. Polanco - planning for HD today with 2 units of blood to be transfused with dialysis. Dr. Vera recommending blood transfusion, repeat EKG (unchanged at 1:15pm). Guiac negative from below but limited stool in rectal vault. Will get dry CT abd/pelvis to r/o RP bleed. Patient also noted to have UTI. Not septic. Lactic normal, afebrile. IV rocephin ordered. Will plan for admission. Consultations Consultation #1: Dr. Polanco - Cardiology Consultation #2: Dr. Schmitt - Nephrology [facility] - Weakness Medical Records Attestation: I reviewed the patient's medical records. Lab Data Attestation: I reviewed the patient's lab results. Result diagrams: 05/01/22 11:42 05/01/22 11:43 Labs: Lab Results 05/01/22 05/01/22 05/01/22 Range/Units 11:40 11:41 11:42 WBC 11.1 H (4.8-10.8) X10*3/uL RBC 2.69 L D (4.60-5.80) X10*6/uL Hgb 7.8 L D (14.0-18.0) g/dl Hct 23.7 L D (42.0-52.0) % MCV 88.1 (80.0-98.0) fL MCH 29.0 (27.0-33.0) pg MCHC 32.9 (31.0-36.0) g/dl RDW 15.9 (11.0-16.0) % Plt Count 233 D (160-400) X10*3/uL MPV 8.9 L (9.4-12.4) fL Immature Gran % (Auto) 0.8 H (0.0-0.4) % Neut % (Auto) 73.4 H (45-73) % Lymph % (Auto) 18.1 L (20-40) % [place] % (Auto) 6.9 (2-11) % Eos % (Auto) 0.5 (0-4) % Baso % (Auto) 0.3 (0-2) % Lymph # (Auto) 2.0 (1.2-4.9) X10*3/uL [place] # (Auto) 0.8 (0.1-1.2) X10*3/uL Eos # (Auto) 0.1 (0.0-0.4) X10*3/uL Baso # (Auto) 0.0 (0.0-0.2) X10*3/uL Abs Immat Gran (auto) 0.09 H (0.00-0.03) X10*3/uL Absolute Neuts (auto) 8.2 (2.0-8.3) x10*3/uL Absolute Nucleated RBC 0.000 (0.0-0.012) X10*3/uL Nucleated RBC % (auto) 0.0 (0.0-0.2) /100WBC Sodium (135-145) mmol/L Potassium (3.3-5.1) mmol/L Chloride (96-108) mmol/L Carbon Dioxide (22-29) mmol/L Anion Gap (12-20) BUN (9-16) mg/dL Creatinine (0.5-1.4) mg/dL Estim Creat Clear Calc Estimated GFR Random Glucose (60-115) mg/dL Lactic Acid 1.5 (0.5-2.0) mmol/L Calcium (8.4-10.2) mg/dL Magnesium (1.6-2.6) mg/dL Total Bilirubin (0.0-1.0) mg/dL Direct Bilirubin (0.0-0.5) mg/dL AST (5-37) U/L ALT (0-40) U/L Alkaline Phosphatase (39-117) U/L Troponin I High Sens (<3.5-35.0) ng/L B-Natriuretic Peptide (<100) pg/mL Total Protein (6.5-8.0) g/dL Albumin (3.5-5.0) g/dL Urine Color Urine Appearance Urine pH (5.0-9.0) Ur Specific [place] (1.005-1.025) Urine Protein (Neg-Trace) mg/dL Urine Glucose (UA) (Negative) mg/dL Urine Ketones (Negative) mg/dL Urine Blood (Negative) Urine Nitrite (Negative) Ur Leukocyte Esterase (Negative) Urine RBC (0-2) /HPF Urine WBC (0-5) /HPF Ur Squamous Epith Cells (0-2) /HPF Urine Bacteria (None Seen) Hyaline Casts (0-2) /LPF Stool Occult Blood (NEGATIVE) COVID-19 (REJI) Negative (Negative) COVID-19 Clin Com See Note 05/01/22 05/01/22 05/01/22 Range/Units 11:42 11:43 12:47 WBC (4.8-10.8) X10*3/uL RBC (4.60-5.80) X10*6/uL Hgb (14.0-18.0) g/dl Hct (42.0-52.0) % MCV (80.0-98.0) fL MCH (27.0-33.0) pg MCHC (31.0-36.0) g/dl RDW (11.0-16.0) % Plt Count (160-400) X10*3/uL MPV (9.4-12.4) fL Immature Gran % (Auto) (0.0-0.4) % Neut % (Auto) (45-73) % Lymph % (Auto) (20-40) % [place] % (Auto) (2-11) % Eos % (Auto) (0-4) % Baso % (Auto) (0-2) % Lymph # (Auto) (1.2-4.9) X10*3/uL [place] # (Auto) (0.1-1.2) X10*3/uL Eos # (Auto) (0.0-0.4) X10*3/uL Baso # (Auto) (0.0-0.2) X10*3/uL Abs Immat Gran (auto) (0.00-0.03) X10*3/uL Absolute Neuts (auto) (2.0-8.3) x10*3/uL Absolute Nucleated RBC (0.0-0.012) X10*3/uL Nucleated RBC % (auto) (0.0-0.2) /100WBC Sodium 129 L (135-145) mmol/L Potassium 4.6 (3.3-5.1) mmol/L Chloride 95 L (96-108) mmol/L Carbon Dioxide 20 L (22-29) mmol/L Anion Gap 19 (12-20) BUN 34 H D (9-16) mg/dL Creatinine 5.39 H* (0.5-1.4) mg/dL Estim Creat Clear Calc 10.9 Estimated GFR 11 Random Glucose 135 H D (60-115) mg/dL Lactic Acid (0.5-2.0) mmol/L Calcium 8.0 L D (8.4-10.2) mg/dL Magnesium 1.5 L (1.6-2.6) mg/dL Total Bilirubin 0.7 (0.0-1.0) mg/dL Direct Bilirubin 0.2 (0.0-0.5) mg/dL AST 12 (5-37) U/L ALT < 6 (0-40) U/L Alkaline Phosphatase 79 D (39-117) U/L Troponin I High Sens 709.4 H* D (<3.5-35.0) ng/L B-Natriuretic Peptide 1869 H (<100) pg/mL Total Protein 7.0 (6.5-8.0) g/dL Albumin 3.1 L D (3.5-5.0) g/dL Urine Color Yellow Urine Appearance Turbid Urine pH 6.0 (5.0-9.0) Ur Specific [place] 1.015 (1.005-1.025) Urine Protein 300 (3+) H (Neg-Trace) mg/dL Urine Glucose (UA) Negative (Negative) mg/dL Urine Ketones Trace (Negative) mg/dL Urine Blood Large (3+) H (Negative) Urine Nitrite Negative (Negative) Ur Leukocyte Esterase Large (3+) H (Negative) Urine RBC >20 H (0-2) /HPF Urine WBC >50 H (0-5) /HPF Ur Squamous Epith Cells 3-5 (0-2) /HPF Urine Bacteria 4+ (None Seen) Hyaline Casts 3-5 (0-2) /LPF Stool Occult Blood (NEGATIVE) COVID-19 (REJI) (Negative) COVID-19 Clin Com 05/01/22 Range/Units 12:47 WBC (4.8-10.8) X10*3/uL RBC (4.60-5.80) X10*6/uL Hgb (14.0-18.0) g/dl Hct (42.0-52.0) % MCV (80.0-98.0) fL MCH (27.0-33.0) pg MCHC (31.0-36.0) g/dl RDW (11.0-16.0) % Plt Count (160-400) X10*3/uL MPV (9.4-12.4) fL Immature Gran % (Auto) (0.0-0.4) % Neut % (Auto) (45-73) % Lymph % (Auto) (20-40) % [place] % (Auto) (2-11) % Eos % (Auto) (0-4) % Baso % (Auto) (0-2) % Lymph # (Auto) (1.2-4.9) X10*3/uL [place] # (Auto) (0.1-1.2) X10*3/uL Eos # (Auto) (0.0-0.4) X10*3/uL Baso # (Auto) (0.0-0.2) X10*3/uL Abs Immat Gran (auto) (0.00-0.03) X10*3/uL Absolute Neuts (auto) (2.0-8.3) x10*3/uL Absolute Nucleated RBC (0.0-0.012) X10*3/uL Nucleated RBC % (auto) (0.0-0.2) /100WBC Sodium (135-145) mmol/L Potassium (3.3-5.1) mmol/L Chloride (96-108) mmol/L Carbon Dioxide (22-29) mmol/L Anion Gap (12-20) BUN (9-16) mg/dL Creatinine (0.5-1.4) mg/dL Estim Creat Clear Calc Estimated GFR Random Glucose (60-115) mg/dL Lactic Acid (0.5-2.0) mmol/L Calcium (8.4-10.2) mg/dL Magnesium (1.6-2.6) mg/dL Total Bilirubin (0.0-1.0) mg/dL Direct Bilirubin (0.0-0.5) mg/dL AST (5-37) U/L ALT (0-40) U/L Alkaline Phosphatase (39-117) U/L Troponin I High Sens (<3.5-35.0) ng/L B-Natriuretic Peptide (<100) pg/mL Total Protein (6.5-8.0) g/dL Albumin (3.5-5.0) g/dL Urine Color Urine Appearance Urine pH (5.0-9.0) Ur Specific [place] (1.005-1.025) Urine Protein (Neg-Trace) mg/dL Urine Glucose (UA) (Negative) mg/dL Urine Ketones (Negative) mg/dL Urine Blood (Negative) Urine Nitrite (Negative) Ur Leukocyte Esterase (Negative) Urine RBC (0-2) /HPF Urine WBC (0-5) /HPF Ur Squamous Epith Cells (0-2) /HPF Urine Bacteria (None Seen) Hyaline Casts (0-2) /LPF Stool Occult Blood NEGATIVE (NEGATIVE) COVID-19 (REJI) (Negative) COVID-19 Clin Com ECG Data Attestation: I personally reviewed and interpreted this ECG as follows: ECG interpretation date: 05/01/22 ECG interpretation time: 12:44 Prior ECG tracings: available for review Interpretation: 12:40 pm - sinus rhythm with 1st degree AV block, VT interval 210 ms, NEW ST depressions and t-wave invesions in V4-V6, t-wave inversions in I, II, aVL 13:15 - sinus rhythm, VT interval 192 ms, no change in t-wave inversions in I, II, aVL, and ST depressions and Twi in V4-V6 Critical Care Time Critical Care Time Critical Care Time: Yes Total Critical Care Time: 58 Attestation: I have personally provided critical care time exclusive of time spent on separately billable procedures. Time includes review of lab data, radiology results, discussion with consultants, and monitoring for potential decompensation. Intervention performed as documented. Discharge Plan Discharge Clinical Impression: Non-ST elevation IA (NSTEMI), Acute anemia, Acute UTI Patient Disposition: Admitted As Inpatient
--- NOTE | 2022-05-01 11:08 | ECG_ITS ---
Test Reason : ROUTINE Blood Pressure : / mmHG Vent. Rate : 061 BPM Atrial Rate : 061 BPM P-R Int : 210 ms QRS Dur : 138 ms QT Int : 486 ms P-R-T Axes : 048 -28 167 degrees QTc Int : 489 ms Sinus rhythm with 1st degree A-V block Non-specific intra-ventricular conduction block T wave abnormality, consider lateral ischemia Abnormal ECG When compared with ECG of 08-APR-2022 18:03, Left anterior fascicular block is no longer Present Non-specific change in ST segment in Anterior leads T wave inversion now evident in Anterolateral leads Referred By: Deanna Celeste Electronically Signed By:ARLIN SUAREZ MD
[2022-05-01 12:02] LABS: MANUAL DIFF FLAG NO
[2022-05-01 12:03] LABS: Basophils Percent Auto 0.3 % (0-2); Eosinophils Absolute Auto 0.1 X10*3/uL (0.0-0.4); Eosinophils Percent Auto 0.5 % (0-4); Hematocrit 23.7 % (42.0-52.0); Hemoglobin 7.8 g/dl (14.0-18.0); Imm Gran Abs Auto 0.09 X10*3/uL (0.00-0.03); Imm Gran Pct Auto 0.8 % (0.0-0.4); Lymphocytes Percent Auto 18.1 % (20-40); Mean Corpuscular HGB Conc 32.9 g/dl (31.0-36.0); Mean Corpuscular Volume 88.1 fL (80.0-98.0); Mean Platelet Volume 8.9 fL (9.4-12.4); Monocytes Absolute Auto 0.8 X10*3/uL (0.1-1.2); Monocytes Percent Auto 6.9 % (2-11); Neutrophils Absolute Auto 8.2 x10*3/uL (2.0-8.3); Neutrophils Percent Auto 73.4 % (45-73); Platelet Count 233 X10*3/uL (160-400); Red Blood Count 2.69 X10*6/uL (4.60-5.80); Red Cell Distribution Width 15.9 % (11.0-16.0); White Blood Count 11.1 X10*3/uL (4.8-10.8)
[2022-05-01 12:24] LABS: COVID-19 Test Negative (Negative); IDNOW Serial# 16C4AD1C
[2022-05-01 12:25] LABS: Lactic Acid 1.5 mmol/L (0.5-2.0)
[2022-05-01 12:42] LABS: Alanine Aminotransferase < 6 U/L (0-40); Albumin Level 3.1 g/dL (3.5-5.0); Alkaline Phosphatase 79 U/L (39-117); Anion Gap 19 (12-20); Aspartate Amino Transferase 12 U/L (5-37); Bilirubin Direct 0.2 mg/dL (0.0-0.5); Bilirubin Total 0.7 mg/dL (0.0-1.0); Blood Urea Nitrogen 34 mg/dL (9-16); Carbon Dioxide 20 mmol/L (22-29); Chloride 95 mmol/L (96-108); Creatinine Clr Calc Pharmacy 10.9; Estimated Glomerular Filt Rate 11; Glucose Random 135 mg/dL (60-115); Magnesium 1.5 mg/dL (1.6-2.6); Potassium 4.6 mmol/L (3.3-5.1); Sodium 129 mmol/L (135-145)
[2022-05-01 12:52] LABS: B Type Natriuretic Peptide 1869 pg/mL (<100); Troponin-I High Sensitivity 709.4 ng/L (<3.5-35.0)
[2022-05-01 12:57] LABS: OBS1 NEGATIVE (NEGATIVE)
[2022-05-01 12:58] LABS: OBS Int Ctl Valid YES
[2022-05-01 13:00] LABS: Appearance Urine Turbid; Color Urine Yellow; Glucose Urine UA Negative (Negative); Leukocyte Esterase Urine Large (3+) (Negative); Nitrite Urine Negative (Negative); Specific Gravity - Urine 1.015 (1.005-1.025); UMIC TRIGGER UACC YES; Urine Blood Large (3+) (Negative); Urine Ketones Trace mg/dL (Negative); Urine Protein 300 (3+) mg/dL (Neg-Trace)
[2022-05-01 13:08] LABS: Bacteria Urine 4+ (None Seen); RBC Urine >20 /HPF (0-2); UACC Culture Trigger YES; WBC Urine >50 /HPF (0-5)
--- NOTE | 2022-05-01 13:14 | ECG_ITS ---
Test Reason : REPEAT Blood Pressure : / mmHG Vent. Rate : 062 BPM Atrial Rate : 062 BPM P-R Int : 192 ms QRS Dur : 138 ms QT Int : 486 ms P-R-T Axes : 053 -33 166 degrees QTc Int : 493 ms Normal sinus rhythm Left axis deviation Left ventricular hypertrophy with QRS widening and repolarization abnormality ( [place] product ) Abnormal ECG When compared with ECG of 04/08/22 12:40 LA interval has decreased QRS duration has increased No significant changes seen Referred By: Kaitlynn Wilkinson Electronically Signed By:ARLIN SUAREZ MD
[2022-05-01] MEDS: cefTRIAXone sodium 1 GM in 0.9 % Sodium Chloride 50 ML IV (13:26)
[2022-05-01] MEDS: Pantoprazole Sodium 40 MG/10 ML VIAL IVPUSH (13:43)
--- NOTE | 2022-05-01 14:27 | PHA.MEDREC ---
Pharmacy Consult ? Medication Reconciliation Pharmacy has completed the medication reconciliation.
--- NOTE | 2022-05-01 14:57 | P.PNNP_ITS ---
Subjective Subjective Date of Service: 05/02/22 Principal diagnosis: ESRD Interval history: Pt missed HD Physical Exam Vital Signs: Vital Signs: Last Vital Signs Temp 98.4 F 05/01/22 11:10 Pulse 59 05/01/22 13:46 Resp 18 05/01/22 13:46 BP 121/66 05/01/22 13:46 Pulse Ox 96 05/01/22 13:46 O2 Del Method 05/01/22 13:46 O2 Flow Rate 2 05/01/22 13:46 BMI result Body Mass Index 29.5 Appearance: Alert. Oriented X3. No acute distress. Eyes: Pupils equal, round and reactive to light. ENT: Pharynx normal. Neck: Normal inspection. Neck supple. CVS: Normal heart rate and rhythm. Pulses normal. Left chest wall with permcath in place, no surrounding erythema or tenderness. Respiratory: No respiratory distress. Breath sounds normal. Abdomen: Soft and nontender. +BS x4 TEE: normal rectal tone, minimal stool in rectal vault, brown Skin: Skin warm and dry. Normal skin color. Normal skin turgor. No rashes. Extremities: No lower extremity edema. Neuro: Oriented X 3. Mild generalized weakness, nonfocal. strenght equal and symmetrical throughout Objective Data Labs CBC & Chem 7: 05/02/22 05:50 05/02/22 05:50 Labs: Laboratory Results - last 24 hr 05/01/22 05/01/22 05/01/22 11:40 11:41 11:42 WBC 11.1 H RBC 2.69 L D Hgb 7.8 L D Hct 23.7 L D MCV 88.1 MCH 29.0 MCHC 32.9 RDW 15.9 Plt Count 233 D MPV 8.9 L Immature Gran % (Auto) 0.8 H Neut % (Auto) 73.4 H Lymph % (Auto) 18.1 L [place] % (Auto) 6.9 Eos % (Auto) 0.5 Baso % (Auto) 0.3 Lymph # (Auto) 2.0 [place] # (Auto) 0.8 Eos # (Auto) 0.1 Baso # (Auto) 0.0 Abs Immat Gran (auto) 0.09 H Absolute Neuts (auto) 8.2 Absolute Nucleated RBC 0.000 Nucleated RBC % (auto) 0.0 Sodium Potassium Chloride Carbon Dioxide Anion Gap BUN Creatinine Estim Creat Clear Calc Estimated GFR Random Glucose Lactic Acid 1.5 Calcium Magnesium Total Bilirubin Direct Bilirubin AST ALT Alkaline Phosphatase Troponin I High Sens B-Natriuretic Peptide Total Protein Albumin Urine Color Urine Appearance Urine pH Ur Specific [place] Urine Protein Urine Glucose (UA) Urine Ketones Urine Blood Urine Nitrite Ur Leukocyte Esterase Urine RBC Urine WBC Ur Squamous Epith Cells Urine Bacteria Hyaline Casts Stool Occult Blood COVID-19 (REJI) Negative COVID-19 Clin Com See Note Blood Type Antibody Screen Crossmatch 05/01/22 05/01/22 05/01/22 11:42 11:43 12:47 WBC RBC Hgb Hct MCV MCH MCHC RDW Plt Count MPV Immature Gran % (Auto) Neut % (Auto) Lymph % (Auto) [place] % (Auto) Eos % (Auto) Baso % (Auto) Lymph # (Auto) [place] # (Auto) Eos # (Auto) Baso # (Auto) Abs Immat Gran (auto) Absolute Neuts (auto) Absolute Nucleated RBC Nucleated RBC % (auto) Sodium 129 L Potassium 4.6 Chloride 95 L Carbon Dioxide 20 L Anion Gap 19 BUN 34 H D Creatinine 5.39 H* Estim Creat Clear Calc 10.9 Estimated GFR 11 Random Glucose 135 H D Lactic Acid Calcium 8.0 L D Magnesium 1.5 L Total Bilirubin 0.7 Direct Bilirubin 0.2 AST 12 ALT < 6 Alkaline Phosphatase 79 D Troponin I High Sens 709.4 H* D B-Natriuretic Peptide 1869 H Total Protein 7.0 Albumin 3.1 L D Urine Color Yellow Urine Appearance Turbid Urine pH 6.0 Ur Specific [place] 1.015 Urine Protein 300 (3+) H Urine Glucose (UA) Negative Urine Ketones Trace Urine Blood Large (3+) H Urine Nitrite Negative Ur Leukocyte Esterase Large (3+) H Urine RBC >20 H Urine WBC >50 H Ur Squamous Epith Cells 3-5 Urine Bacteria 4+ Hyaline Casts 3-5 Stool Occult Blood COVID-19 (REJI) COVID-19 Clin Com Blood Type Antibody Screen Crossmatch 05/01/22 05/01/22 12:47 13:32 WBC RBC Hgb Hct MCV MCH MCHC RDW Plt Count MPV Immature Gran % (Auto) Neut % (Auto) Lymph % (Auto) [place] % (Auto) Eos % (Auto) Baso % (Auto) Lymph # (Auto) [place] # (Auto) Eos # (Auto) Baso # (Auto) Abs Immat Gran (auto) Absolute Neuts (auto) Absolute Nucleated RBC Nucleated RBC % (auto) Sodium Potassium Chloride Carbon Dioxide Anion Gap BUN Creatinine Estim Creat Clear Calc Estimated GFR Random Glucose Lactic Acid Calcium Magnesium Total Bilirubin Direct Bilirubin AST ALT Alkaline Phosphatase Troponin I High Sens B-Natriuretic Peptide Total Protein Albumin Urine Color Urine Appearance Urine pH Ur Specific [place] Urine Protein Urine Glucose (UA) Urine Ketones Urine Blood Urine Nitrite Ur Leukocyte Esterase Urine RBC Urine WBC Ur Squamous Epith Cells Urine Bacteria Hyaline Casts Stool Occult Blood NEGATIVE COVID-19 (REJI) COVID-19 Clin Com Blood Type O Positive Antibody Screen NEGATIVE Crossmatch See Detail Procedures Date of Service Date of Service: 05/01/22 Assessment & Plan Assessment and plan (1) ESRD (end stage renal disease) on dialysis: Status: Acute (2) Chronic heart failure with preserved ejection fraction: Status: Acute (3) Acute UTI: Status: Acute (4) Acute anemia: Status: Acute (5) Non-ST elevation [place] (NSTEMI): Status: Acute Plan 1, ESRD on HD with missed HD 2. Anemia 3. CAD/ with EKG changes 4. UTI 5. Hyponatremia HD today K per protocol Vol Removal as tolerated Transfusion ordered by ER team Antibiotics as per medical team Usual HDTTS \ Thx Time Spent With Patient Time: Total time spent is greater than 50% in coordination of care (as documented) at patient's floor/unit and/or counseling patient:
--- NOTE | 2022-05-01 15:15 | PC.NURSE ---
Blood transfusion started. No adverse reactions observed or reported. PT afebrile. PT transported to dialysis by two RNs.
--- NOTE | 2022-05-01 15:37 | P.HPHOSP_ITS ---
History of Present Illness Date of Service: 05/01/22 Attending physician on admission: Deanna Celeste Chief Complaint: weakness, black urine 67-year-old male with past medical history of CAD with ischemic cardiomyopathy, HFrEF, ESRD on dialysis T/Th/Tue (compliant), HTN, P AF on eliquis, insulin dependent type 2 diabetes presented to the ED this morning feeling generally unwell with generalized weakness and dark ?black? urine for the last 3 days. As a result he did not go to hemodialysis today but states otherwise he is compliant with this and came to the ER instead. There has also been some dysuria and suprapubic discomfort. Despite being a dialysis patient he does urinate several times daily and is occasionally incontinent wearing briefs. He denies any maggi blood in the urine and is adamant that it was not stool. Last bowel movement was yesterday it was brown diarrhea. He denies any melena or hematochezia. He denies any fevers or chills, nausea, vomiting, shortness of breath, palpitations, lightheadedness, or chest pain. On EMS arrival patient was found to be hypoxic around 85% was placed on 2 L nasal cannula. On arrival to the ER, patient continued nasal cannula at 2 L with oximetry of 96%. Vital signs stable. WBC 11.1. Significant drop in H/H 7.8/23.7% (was 12.7/37.9% 1 month ago). Denies any source of bleeding. Creatinine 5.39, BUN 34, sodium 1 29, chloride 95, CO2 20, potassium 4.6. Glucose 135. Magnesium 1.5. Lactic acid 1.5. BNP 1869. Initial trope 709.4. EKG showing NSR, rate 62 with T-wave inversions V4-6, no IRIS. CXR negative. CT abdomen/pelvis showing cholelithiasis with gallbladder wall thickening and irregular contour. Re commend ultrasound to rule out acute cholecystitis. Interval development of bilateral small pleural effusions, left greater than right. UA showing 3+ protein, 3+ blood, 3+ leuks, nitrate negative, 4+ bacteria. Nursing staff did straight cath the patient revealing cloudy yellow urine, no gross hematuria. Urine culture and blood cultures pending. Case discussed with cardiology with question of NSTEMI. Given question of blood-loss anemia, heparin deferred. Patient to be transfused 2 units packed red blood cells. Given 40 mg IV Protonix and 1 g ceftriaxone. Seen by Nephrology with HD scheduled for later today. Review of Systems Review of Systems: General: + generalized weakness, fatigue. No fevers, malaise, unintentional weight loss HEENT: No blurred vision or diplopia Cardiovascular: No chest pain, palpitations, or leg edema Respiratory: No shortness of breath, wheezing, cough GI: + suprapubic discomfort. No nausea, vomiting, diarrhea, constipation, melena, hematochezia :+ dysuria, + dark urine. No oliguria, maggi hematuria MSK: No myalgia Neuro: No headaches, weakness, paresthesias Skin: No rashes or lesions [facility] Medical History Anemia Atherosclerotic cardiovascular disease Chronic heart failure with preserved ejection fraction Chronic kidney disease, unspecified CKD (chronic kidney disease) ESRD (end stage renal disease) on dialysis Essential hypertension PAF (paroxysmal atrial fibrillation) Type 2 diabetes mellitus with unspecified complications Family History Father Esophageal cancer Mother Diabetes Hypertension Surgical History History of cardiac catheterization (~07/18/20) History of colon resection Social History Household Members: Unknown / Unable to assess Housing: Unknown / Unable to assess Do you presently have visiting nurse or other home services: Yes Unable to assess alcohol history related to: Unknown Alcohol intake: former Patient Tobacco Use Status: Never used Tobacco Use of substances other than those prescribed or required for medical reasons: No Advance Directives: Yes Advance Directives on File: Yes Advance Directives Date on File: 09/21/21 service: No Current occupational status: unemployed Meds Allergies Allergy/AdvReac Type Severity Reaction Status Date / Time No Known Allergies Allergy Verified 04/08/22 17:45 Active Medications: Current Medications Acetaminophen (Acetaminophen 325 Mg Tablet) 650 mg PO Q6H PRN PRN Reason: Pain, Mild, fever Amiodarone HCl (Amiodarone Hcl 200 Mg Tablet) 200 mg PO DAILY [facility] Atorvastatin Calcium (Atorvastatin Calcium 80 Mg Tablet) 80 mg PO BEDTIME [facility] Bumetanide (Bumetanide 1 Mg Tablet) 1 mg PO BID [facility]; Protocol Carvedilol (Carvedilol 3.125 Mg Tablet) 3.125 mg PO BID [facility]; Protocol Dextrose (Dextrose 50 % 25 Gm/50 Ml Syringe) 25 gm IVPUSH Q15M PRN; Protocol PRN Reason: per Hypoglycemia Standing Ord. Docusate Sodium (Docusate Sodium 100 Mg Capsule) 100 mg PO DAILY PRN PRN Reason: Constipation Fluoxetine HCl (Fluoxetine Hcl 20 Mg Capsule) 20 mg PO DAILY [facility] Glucose (Glucose Gel 15 Gm Gel..Gram.) 15 gm PO Q15M PRN; Protocol PRN Reason: per Hypoglycemia Standing Ord. Insulin Glargine (Insulin Glargine,Hum.Rec.Anlog 100 Unit/Ml 10 Ml Vial) 11 unit SUBCUT DAILY [facility] Insulin Human Lispro (Insulin Lispro 100 Unit/Ml 3 Ml Vial) 0 unit SUBCUT QIDACHS [facility]; Protocol Ondansetron HCl (Ondansetron Hcl 4 Mg/2 Ml Vial) 4 mg IVPUSH Q8H PRN PRN Reason: Nausea and Vomiting Pharmacy Consult (Consult Rx Perform Med Rec) 1 each MISCELLANE ONCE PRN PRN Reason: Consult order Sodium Chloride (0.9 % Sodium Chloride Flush 3 Ml Syringe) 3 ml IVFLUSH QSHIFT [facility] Vitamin D (Cholecalciferol (Vitamin D3) 25 Mcg Tablet) 50 mcg PO DAILY [facility] Home Medications Medication Instructions Recorded Confirmed Last Taken Type amiodarone 200 mg tablet 1 tab PO DAILY 02/20/22 05/01/22 Unknown History apixaban 5 mg tablet (Eliquis) 1 tab PO BID 02/20/22 05/01/22 Unknown History aspirin 81 mg tablet,delayed 1 tab PO DAILY 02/20/22 05/01/22 Unknown History release bumetanide 1 mg tablet 1 tab PO BID 02/20/22 05/01/22 Unknown History carvedilol 3.125 mg tablet 1 tab PO BID 02/20/22 05/01/22 Unknown History cholecalciferol (vitamin D3) 50 1 tab PO DAILY 02/20/22 05/01/22 Unknown History mcg (2,000 unit) tablet insulin aspart U-100 100 unit/mL See Protocol subcut QIDACHS 02/20/22 05/01/22 Unknown History (3 mL) subcutaneous pen (Novolog Flexpen U-100 Insulin aspart) insulin glargine 100 unit/mL (3 15 unit subcut DAILY 02/20/22 05/01/22 Unknown History mL) subcutaneous pen (Lantus Solostar U-100 Insulin) fluoxetine 20 mg capsule 1 cap PO DAILY 05/01/22 05/01/22 Unknown History Physical Exam Vital Signs and Narrative: Vital Signs: Last Vital Signs Temp 98.0 F 05/01/22 15:10 Pulse 60 05/01/22 15:10 Resp 16 05/01/22 15:10 BP 127/69 05/01/22 15:10 Pulse Ox 96 05/01/22 13:46 O2 Del Method 05/01/22 13:46 O2 Flow Rate 2 05/01/22 13:46 BMI result Body Mass Index 29.5 Constitutional - Awake and Alert, No apparent distress Eyes - PERRLA, EOMI Cardiovascular - S1S2, RRR, No edema Respiratory - Normal lung expansion, Normal respiratory effort, No respiratory distress, scattered crackles bilaterally Gastrointestinal - NT / ND; +BS; No rebound or guarding - No CVA tenderness Extremities - no calf tenderness bilaterally, no swelling Skin - Warm/Dry Neurological - Alert & oriented x3, CN II-XII in tact. 5/5 strength BUE and BLE Psychological - Appropriate affect Results Labs CBC and Chem 7: 05/01/22 11:42 05/01/22 11:43 Labs: Laboratory Results - last 24 hr 05/01/22 05/01/22 05/01/22 11:40 11:41 11:42 MCV 88.1 MCH 29.0 MCHC 32.9 RDW 15.9 Plt Count 233 D MPV 8.9 L Immature Gran % (Auto) 0.8 H Neut % (Auto) 73.4 H Lymph % (Auto) 18.1 L [place] % (Auto) 6.9 Eos % (Auto) 0.5 Baso % (Auto) 0.3 Lymph # (Auto) 2.0 [place] # (Auto) 0.8 Eos # (Auto) 0.1 Baso # (Auto) 0.0 Abs Immat Gran (auto) 0.09 H Absolute Neuts (auto) 8.2 Absolute Nucleated RBC 0.000 Nucleated RBC % (auto) 0.0 Anion Gap Estim Creat Clear Calc Estimated GFR Random Glucose Lactic Acid 1.5 Calcium Magnesium Total Bilirubin Direct Bilirubin AST ALT Alkaline Phosphatase Troponin I High Sens B-Natriuretic Peptide Total Protein Albumin Urine Color Urine Appearance Urine pH Ur Specific [place] Urine Protein Urine Glucose (UA) Urine Ketones Urine Blood Urine Nitrite Ur Leukocyte Esterase Urine RBC Urine WBC Ur Squamous Epith Cells Urine Bacteria Hyaline Casts Stool Occult Blood COVID-19 (REJI) Negative COVID-19 Clin Com See Note Blood Type Antibody Screen Crossmatch 05/01/22 05/01/22 05/01/22 11:42 11:43 12:47 MCV MCH MCHC RDW Plt Count MPV Immature Gran % (Auto) Neut % (Auto) Lymph % (Auto) [place] % (Auto) Eos % (Auto) Baso % (Auto) Lymph # (Auto) [place] # (Auto) Eos # (Auto) Baso # (Auto) Abs Immat Gran (auto) Absolute Neuts (auto) Absolute Nucleated RBC Nucleated RBC % (auto) Anion Gap 19 Estim Creat Clear Calc 10.9 Estimated GFR 11 Random Glucose 135 H D Lactic Acid Calcium 8.0 L D Magnesium 1.5 L Total Bilirubin 0.7 Direct Bilirubin 0.2 AST 12 ALT < 6 Alkaline Phosphatase 79 D Troponin I High Sens 709.4 H* D B-Natriuretic Peptide 1869 H Total Protein 7.0 Albumin 3.1 L D Urine Color Yellow Urine Appearance Turbid Urine pH 6.0 Ur Specific [place] 1.015 Urine Protein 300 (3+) H Urine Glucose (UA) Negative Urine Ketones Trace Urine Blood Large (3+) H Urine Nitrite Negative Ur Leukocyte Esterase Large (3+) H Urine RBC >20 H Urine WBC >50 H Ur Squamous Epith Cells 3-5 Urine Bacteria 4+ Hyaline Casts 3-5 Stool Occult Blood COVID-19 (REJI) COVID-19 Clin Com Blood Type Antibody Screen Crossmatch 05/01/22 05/01/22 12:47 13:32 MCV MCH MCHC RDW Plt Count MPV Immature Gran % (Auto) Neut % (Auto) Lymph % (Auto) [place] % (Auto) Eos % (Auto) Baso % (Auto) Lymph # (Auto) [place] # (Auto) Eos # (Auto) Baso # (Auto) Abs Immat Gran (auto) Absolute Neuts (auto) Absolute Nucleated RBC Nucleated RBC % (auto) Anion Gap Estim Creat Clear Calc Estimated GFR Random Glucose Lactic Acid Calcium Magnesium Total Bilirubin Direct Bilirubin AST ALT Alkaline Phosphatase Troponin I High Sens B-Natriuretic Peptide Total Protein Albumin Urine Color Urine Appearance Urine pH Ur Specific [place] Urine Protein Urine Glucose (UA) Urine Ketones Urine Blood Urine Nitrite Ur Leukocyte Esterase Urine RBC Urine WBC Ur Squamous Epith Cells Urine Bacteria Hyaline Casts Stool Occult Blood NEGATIVE COVID-19 (REJI) COVID-19 Clin Com Blood Type O Positive Antibody Screen NEGATIVE Crossmatch See Detail Imaging Radiologist's Impressions: Impressions Chest X-Ray 05/01/22 11:24 IMPRESSION: No acute cardiopulmonary process. Abdomen/Pelvis CT 05/01/22 14:32 IMPRESSION: 1. No evidence of retroperitoneal hemorrhage. 2. Cholelithiasis with gallbladder wall thickening and irregular contour. Clinical correlation with possible acute cholecystitis is recommended. Ultrasound could be of help in further evaluation if patient has symptoms consistent with acute cholecystitis. 3. Interval development of Bilateral small pleural effusions, left greater than right with bibasilar disease likely related to atelectasis. Fleischner guidelines were followed. Assessment and Plan (1) Non-ST elevation [place] (NSTEMI): Status: Acute (2) Acute anemia: Status: Acute (3) Acute UTI: Status: Acute (4) ESRD (end stage renal disease) on dialysis: Status: Acute (5) Chronic heart failure with preserved ejection fraction: Status: Acute Plan 67-year-old male with past medical history of CAD with ischemic cardiomyopathy, HFrEF, ESRD on dialysis T/Th/Sat (compliant), HTN, PAF on eliquis, insulin dependent type 2 diabetes admitted for acute UTI, acute on chronic anemia of unclear etiology, and elevated troponin. # acute anemia unclear etiology with baseline chronic normocytic anemia secondary to ESRD -H/H 7.8/23.7% (was 12.7/37.9% 1 month ago- question accuracy of last counts given ESRD history) -to be transfused 2 units packed red blood cells during HD -stool occult blood negative. Denies history of bleeding though has complained of dark urine with 3+ microscopic hematuria on UA without gross hematuria -Titrate O2- no hypoxia -GI consult placed -IV PPI -follow CBC -admit to telemetry # elevated troponin -initial trope 709, repeat pending -EKG showing normal sinus rhythm with new T-wave inversions in V4-6 -cardiology consult placed -question NSTEMI versus demand ischemia. Repeat trop pending -hold on heparin per Cardiology given anemia -admit to telemetry #Acute UTI -UA with 3+ leuks, 3+ blood, 4+ bacteria -WBC 11.9, lactic acid normal. Hemodynamically stable. No sepsis -IV ceftriaxone -Follow cbc #ESRD -Renal consulted -HD today -Follow BMP #HFrEF -BNP baseline -Bilateral pleural effusions. Needs HD -Denies sob, orthopnea -Continue bumex -cardiac diet -strict I&O # cholelithiasis -CT abdomen/pelvis showing cholelithiasis with gallbladder wall thickening and irregular contour with possible acute cholecystitis. U/S recommended -denies abd pain -LFTs normal -U/S abdomen ordered #CAD/ischemic cardiomyopathy- no anginal cp -COntinue statin -Hold asa given ?of bleed # insulin-dependent type 2 diabetes -POC glucose -diabetic diet -Humalog SSI -does suggested home Lantus # paroxysmal atrial fibrillation-rate controlled -hold Eliquis due to question of bleed -continue carvedilol and amiodarone # hyponatremia -Likely due to fluid overload secondary to ESRD -will likely correct with HD -follow BMP # depression -continue fluoxetine Full code DVT prophylaxis-hold Eliquis due to possible bleed. Mechanical and ambulation Patient requires inpatient stay of at least 2 midnights due to acute on chronic anemia requiring 2 units packed RBC with elevated troponin with possible NSTEMI versus demand ischemia requiring expert consultation and close monitoring blood counts and cardiac monitoring Quality Stroke Does the patient have a stroke diagnosis?: No VTE Prior VTE?: No VTE Risk Level:: Medical - moderate - high VTE Device Contraindication: N/A - Device Ordered VTE Drug Contraindication: Treatment Not Indicated
[2022-05-01 16:14] LABS: Iron 57 mcg/dL (45-160); Percent Iron Saturation 29 % (15-50); Total Iron Binding Capacity 194 mcg/dL (228-428); Unsaturated Iron Binding 137 ug/dL
[2022-05-01 16:22] LABS: Troponin-I High Sensitivity 635.6 ng/L (<3.5-35.0)
--- NOTE | 2022-05-01 17:46 | PC.NURSE ---
Second blood transfusing started. PT currently in dialysis. No adverse reaction observed/reported. Afebrile.
--- NOTE | 2022-05-01 20:10 | PC.NURSE ---
pt back from dialysis
--- NOTE | 2022-05-01 20:15 | PC.NURSE ---
second blood transfusion complete. pt resting comfortably on stretcher. pt found to be 86% O2 on room air, placed on 2L NC and up to 97%. no apparent distress. vital signs updated. on electronic device monitor. call lennon within reach.
[2022-05-01 20:21] LABS: Glucose, Whole Blood 73 mg/dL (60-115)
--- NOTE | 2022-05-01 20:26 | PC.NURSE ---
pt off unit during dinner time for dialysis. states he is hungry, blood sugar in the 70s, low for patient. pt given sandwich and juice
[2022-05-01] MEDS: carvediloL 3.125 MG TABLET PO (21:10)
[2022-05-01] MEDS: Atorvastatin Calcium 80 MG TABLET PO (21:10)
[2022-05-01 21:15] LABS: Glucose, Whole Blood 77 mg/dL (60-115)
[2022-05-01 21:45] LABS: Glucose, Whole Blood 96 mg/dL (60-115)
[2022-05-01] MEDS: ondansetron HCL 4 MG/2 ML VIAL IVPUSH (23:22)
[2022-05-01] MEDS: Acetaminophen Supp 650 MG SUPP.RECT PR (23:22)
[2022-05-01 23:26] LABS: Glucose, Whole Blood 144 mg/dL (60-115)
--- NOTE | 2022-05-01 23:26 | PC.NURSE ---
pt began projectile vomiting. poc checked - 144. pt diaphoretic, temp checked - 103.1. Dr Goode notified and came down to see pt. giving tylenol supp and zofran per mar orders. will continue to monitor.
--- NOTE | 2022-05-01 23:43 | PM.EVENT ---
Event Note Date of Service: 05/01/22 Event Note: pt s/p PRBC transfussion. Developed fever of 103 4 hrs after transfusion. no other abnormality except 1 episode of vomiting. Has no tachepnea, no increased O2 requirement. will order labs work , less likely to be transfusion related
[2022-05-02] VITALS (7 sets, daily range): BP systolic 135–164; BP diastolic 67–86; PULSE 55–64; RESP 16–22; TEMP 36.8–37; O2SAT 97–100; BMI 29.7
--- NOTE | 2022-05-02 | ECG_ITS ---
Test Reason : SHORT OF BREATHE Blood Pressure : / mmHG Vent. Rate : 057 BPM Atrial Rate : 057 BPM P-R Int : 224 ms QRS Dur : 130 ms QT Int : 478 ms P-R-T Axes : 031 -28 164 degrees QTc Int : 465 ms Sinus bradycardia with 1st degree A-V block Left ventricular hypertrophy with QRS widening and repolarization abnormality ( Vadim product ) T-wave inversion in Lateral leads Incomplete right bundle branch block Abnormal ECG When compared with ECG of 01-MAY-2022 23:53, SD interval has increased Right bundle branch block is no longer Present Heart rate has decreased T wave inversion more evident in Lateral leads Referred By: Deanna Celeste Electronically Signed By:ARLIN SUAREZ MD
[2022-05-02 02:10] LABS: Lactic Acid 1.1 mmol/L (0.5-2.0)
[2022-05-02 02:12] LABS: Anion Gap 18 (12-20); Blood Urea Nitrogen 22 mg/dL (9-16); Calcium 8.1 mg/dL (8.4-10.2); Carbon Dioxide 19 mmol/L (22-29); Chloride 101 mmol/L (96-108); Creatinine Clr Calc Pharmacy 15.4; Estimated Glomerular Filt Rate 16; Glucose Random 155 mg/dL (60-115); Magnesium 1.6 mg/dL (1.6-2.6); Potassium 4.4 mmol/L (3.3-5.1); Sodium 134 mmol/L (135-145)
[2022-05-02 02:24] LABS: Troponin-I High Sensitivity 577.8 ng/L (<3.5-35.0)
--- NOTE | 2022-05-02 02:36 | CONS_ITS ---
DATE OF SERVICE: REASON FOR CONSULTATION: Consult requested by the emergency room physician on an emergency basis for evaluation, management of the patient who has end-stage renal disease, who presented with weakness and has volume overload. Patient has history of coronary artery disease with ischemic cardiomyopathy, EF of 35% to 40%. He did not go for dialysis today and decided to come to the ER for evaluation because of weakness. He has had 3-day history of burning and pain on urination. He urinated multiple times with pain. He does have incontinence. There was no complaint of loose stool. He did not have any fever or chills. There is no abdominal pain, nausea, or vomiting. On EMS arrival, patient had a hypoxemia with oxygen saturation of 85% and was placed on 2 L nasal cannula. In the ER, patient had hypotension and he also had EKG changes. Cardiology has been consulted. He was also noted to have severe anemia with a drop in his hemoglobin. At the present time, he is resting in the bed and is fairly comfortable. PAST MEDICAL HISTORY: History of ESRD on hemodialysis on Tuesday, , Tuesday. Patient apparently goes to [facility]. Has a left chest PermCath. History of heart failure with ejection fraction of 35% to 40%, hypertension, diabetes, on insulin, coronary artery disease/ischemic cardiomyopathy, paroxysmal atrial fibrillation, on Eliquis, history of pneumonia, vitamin D deficiency. PAST SURGICAL HISTORY: Include cardiac catheterization, history of colon resection. PERSONAL AND SOCIAL HISTORY: Patient does not smoke or drink at the present time. FAMILY HISTORY: Significant for father with esophageal cancer. Mother with diabetes and hypertension. REVIEW OF SYSTEMS: As noted above. Other systems reviewed negative. PHYSICAL EXAMINATION: GENERAL: Patient is resting in the bed. Awake, able to follow commands. VITAL SIGNS: Blood pressure was 115/57, pulse 63, afebrile. HEENT: Shows pupils equal bilaterally to light. NECK: Positive jugular venous distention is noted. Neck was supple. CARDIOVASCULAR SYSTEM: S1, S2 without rub. RESPIRATORY SYSTEM: Air entry decreased in the bases. ABDOMEN: Soft, distended. Bowel sounds normal. EXTREMITIES: Showed no significant edema. Chest x-ray showed no acute pulmonary lesion. Abdomen CT is pending. LABORATORY DATA: Labs done recently; WBC 11.1, hemoglobin 7.8, hematocrit 23.7, . Sodium 129, potassium 4.6, chloride 95, CO2 20, BUN 34, creatinine 5.39, estimated GFR 135. IMPRESSION: 1. A 67-year-old male with end-stage disease on hemodialysis on Tuesdays, , Saturdays with missed dialysis treatment today. 2. Anemia with acute drop in hemoglobin with a possible question of blood loss. 3. Coronary artery disease with EKG changes on presentation which is new. 4. Urinary tract infection. 5. Hyponatremia. RECOMMENDATIONS: At this juncture, the patient has missed dialysis treatment and I will arrange for hemodialysis at the inpatient dialysis unit. We will try to remove fluid as tolerated. The ER physician wanted to transfuse blood and I suggested blood transfusion with hemodialysis and they are planning to transfuse 2 units of packed red blood cells given coronary artery disease with EKG changes. Apparently, patient is also going to be followed up by Cardiology. In the meantime, he should continue with his outpatient medication for hypertension. Antidiabetic medication as ordered by the medical team. Thank you for allowing me to participate in medical management of the patient. MD JOHN Martinez/LUTHER / [id number]
[2022-05-02 06:24] LABS: MANUAL DIFF FLAG NO
[2022-05-02 06:36] LABS: Basophils Percent Auto 0.3 % (0-2); Eosinophils Percent Auto 0.1 % (0-4); Hematocrit 35.1 % (42.0-52.0); Hemoglobin 11.5 g/dl (14.0-18.0); Imm Gran Abs Auto 0.09 X10*3/uL (0.00-0.03); Imm Gran Pct Auto 0.6 % (0.0-0.4); Lymphocytes Absolute Auto 1.6 X10*3/uL (1.2-4.9); Lymphocytes Percent Auto 10.8 % (20-40); Mean Corpuscular HGB Conc 32.8 g/dl (31.0-36.0); Mean Corpuscular Hemoglobin 28.7 pg (27.0-33.0); Mean Corpuscular Volume 87.5 fL (80.0-98.0); Mean Platelet Volume 9.2 fL (9.4-12.4); Monocytes Absolute Auto 0.8 X10*3/uL (0.1-1.2); Monocytes Percent Auto 5.4 % (2-11); Neutrophils Absolute Auto 12.5 x10*3/uL (2.0-8.3); Neutrophils Percent Auto 82.8 % (45-73); Platelet Count 207 X10*3/uL (160-400); Red Blood Count 4.01 X10*6/uL (4.60-5.80); Red Cell Distribution Width 15.8 % (11.0-16.0); White Blood Count 15.1 X10*3/uL (4.8-10.8)
[2022-05-02 08:11] LABS: Glucose, Whole Blood 105 mg/dL (60-115)
[2022-05-02 08:18] LABS: Anion Gap 20 (12-20); Blood Urea Nitrogen 22 mg/dL (9-16); Calcium 8.2 mg/dL (8.4-10.2); Carbon Dioxide 19 mmol/L (22-29); Chloride 101 mmol/L (96-108); Creatinine Clr Calc Pharmacy 14.7; Estimated Glomerular Filt Rate 15; Glucose Random 119 mg/dL (60-115); Magnesium 1.7 mg/dL (1.6-2.6); Potassium 4.8 mmol/L (3.3-5.1); Sodium 135 mmol/L (135-145)
[2022-05-02] MEDS: carvediloL 3.125 MG TABLET PO ×2 (08:39→22:02)
[2022-05-02] MEDS: Magnesium Oxide 400 MG TABLET PO (08:39)
[2022-05-02] MEDS: Cholecalciferol (Vitamin D3) 25 MCG TABLET 50 MCG PO (08:39)
[2022-05-02] MEDS: Insulin Glargine,Hum.rec.anlog 100 UNIT/ML 10 ML VIAL 11 UNIT SUBCUT (08:40)
[2022-05-02] MEDS: FLUoxetine HCl 20 MG CAPSULE PO (08:40)
[2022-05-02] MEDS: Amiodarone HCL 200 MG TABLET PO (08:40)
[2022-05-02] MEDS: Bumetanide 1 MG TABLET PO ×2 (08:40→16:00)
[2022-05-02] MEDS: 0.9 % Sodium Chloride Flush 3 ML SYRINGE IVFLUSH ×3 (08:46→22:05)
--- NOTE | 2022-05-02 09:42 | P.CNGI_ITS ---
History of Present Illness Data of Consult Service Date: 05/02/22 Requesting physician: Aaliyah Mercedes Primary Care Provider: Unknown Physician HPI Reason for consult: anemia 67 YM with CAD with ischemic cardiomyopathy, HFrEF, ESRD on dialysis T/Th/Sat (compliant), HTN, P AF on eliquis, insulin dependent type 2 diabetes seen [place] [facility] [place] with feeling generally unwell with generalized weakness and dark ?black? urine for the last 3 days.? As a result he did not go to hemodialysis a nd came to the ER instead.? Hx obtained with the help of a [place] crocodile farmer. Pt complains of dysuria and suprapubic discomfort and denies upper abdominal pain, heartburn, dysphagia, nausea or vomting.? Despite being a dialysis patient he does urinate several times daily and is occasionally incontinent wearing briefs.? He denies any maggi blood in the urine and is adamant that it was not stool.? Last bowel movement was on 04/30/22 and was brown diarrhea.? Pt denies recent change in bowel habits, melena or hematochezia.? He denies any fevers or chills, nausea, vomiting, shortness of breath, palpitations, lightheadedness, or chest pain.? Patient denies past history of peptic ulcer disease and denies smoking or EtOH abuse. He does not recall having an EGD in the past (no record in [facility]) On EMS arrival patient was found to be hypoxic around 85% was placed on 2 L nasal cannula.? On arrival to the ER, patient continued nasal cannula at 2 L with oximetry of 96%.? Vital signs stable.? Labs showed WBC 11.1, H/H 7.8/23.7% (was 12.7/37.9% 1 month ago), Creatinine 5.39, BUN 34, sodium 129, chloride 95, CO2 20, potassium 4.6.? Glucose 135.? Magnesium 1.5.? Lactic acid 1.5.? BNP 1869.? Initial trop 709.4.? EKG showing NSR, rate 62 with T-wave inversions V4-6, no IRIS.? CXR negative.? UA showing 3+ protein, 3+ blood, 3+ leuks, nitrate negative, 4+ bacteria.? Nursing staff did straight cath the patient revealing cloudy yellow urine, no gross hematuria.? Urine culture and blood cultures pending.? Pt was given 40 mg IV Protonix and 1 g ceftriaxone and admitted for further management.? Pt was seen by Nephrology and HD was performed on 05/01/22.? Pt was transfused 2 U PRBC during HD. Post transfusion H & H 11.5/35.1 05/01/[address] SCAN SHOWED: 1.? No evidence of retroperitoneal hemorrhage. 2.? Cholelithiasis with gallbladder wall thickening and irregular contour. Clinical correlation with possible acute cholecystitis is recommended. Ultrasound could be of help in further evaluation if patient has symptoms consistent with acute cholecystitis. 3.? Interval development of Bilateral small pleural effusions, left greater than right with bibasilar disease likely related to atelectasis. 05/02/22 ABD US SHOWED: There are gallstones and abnormal gallbladder wall thickening up to 6 mm in diameter. The appearance is nonspecific, particularly given there was no reported sonographic Silverman's sign (focal tenderness upon imaging of the gallbladder). Review of Systems Review of Systems: General: + generalized weakness, fatigue. No fevers, malaise, unintentional weight loss HEENT: No blurred vision or diplopia Cardiovascular: No chest pain, palpitations, or leg edema Respiratory: No shortness of breath, wheezing, cough GI: + suprapubic discomfort. No nausea, vomiting, diarrhea, constipation, melena, hematochezia :+ dysuria, + dark urine. No oliguria, maggi hematuria MSK: No myalgia Neuro: No headaches, weakness, paresthesias Skin: No rashes or lesions PMFSH Past Medical History Medical History (Updated 05/15/22 @ 00:03 by Sukhjinder Cohn) Anemia Atherosclerotic cardiovascular disease Chronic heart failure with preserved ejection fraction Chronic kidney disease, unspecified CKD (chronic kidney disease) ESRD (end stage renal disease) on dialysis Essential hypertension PAF (paroxysmal atrial fibrillation) Type 2 diabetes mellitus with unspecified complications Family History Family History Father Esophageal cancer Mother Diabetes Hypertension Surgical History Surgical History History of cardiac catheterization (~07/18/20) History of colon resection Social History Social History Household Members: None Housing: Apartment Housing Other:: elderly housing Do you presently have visiting nurse or other home services: Yes (nurse, therapy, CARE MANAGEMENT [employer]OCIATE) Unable to assess alcohol history related to: Unknown Alcohol intake: former Patient Tobacco Use Status: Never used Tobacco Advance Directives Date on File: 09/21/21 service: No Current occupational status: unemployed Meds Allergies Allergy/AdvReac Type Severity Reaction Status Date / Time No Known Allergies Allergy Verified 04/08/22 17:45 Active Medications: Current Medications Acetaminophen (Acetaminophen 325 Mg Tablet) 650 mg PO Q6H PRN PRN Reason: Pain, Mild, fever Amiodarone HCl (Amiodarone Hcl 200 Mg Tablet) 200 mg PO DAILY [facility] Last Admin: 05/02/22 08:40 Dose: 200 mg Atorvastatin Calcium (Atorvastatin Calcium 80 Mg Tablet) 80 mg PO BEDTIME [facility]IN[facility] Last Admin: 05/01/22 21:10 Dose: 80 mg Bumetanide (Bumetanide 1 Mg Tablet) 1 mg PO BIDWM [facility]; Protocol Last Admin: 05/02/22 08:40 Dose: 1 mg Carvedilol (Carvedilol 3.125 Mg Tablet) 3.125 mg PO BID [facility]; Protocol Last Admin: 05/02/22 08:39 Dose: 3.125 mg Dextrose (Dextrose 50 % 25 Gm/50 Ml Syringe) 25 gm IVPUSH Q15M PRN; Protocol PRN Reason: per Hypoglycemia Standing Ord. Docusate Sodium (Docusate Sodium 100 Mg Capsule) 100 mg PO DAILY PRN PRN Reason: Constipation Fluoxetine HCl (Fluoxetine Hcl 20 Mg Capsule) 20 mg PO DAILY [facility] Last Admin: 05/02/22 08:40 Dose: 20 mg Glucose (Glucose Gel 15 Gm Gel..Gram.) 15 gm PO Q15M PRN; Protocol PRN Reason: per Hypoglycemia Standing Ord. Ceftriaxone Sodium 1 gm/ (Sodium Chloride) 50 mls @ 100 mls/hr IV Q24H [facility] Insulin Glargine (Insulin Glargine,Hum.Rec.Anlog 100 Unit/Ml 10 Ml Vial) 11 unit SUBCUT DAILY [facility] Last Admin: 05/02/22 08:40 Dose: 11 unit Insulin Human Lispro (Insulin Lispro 100 Unit/Ml 3 Ml Vial) 0 unit SUBCUT QIDACHS [facility]; Protocol Last Admin: 05/02/22 08:46 Dose: Not Given Magnesium Oxide (Magnesium Oxide 400 Mg Tablet) 400 mg PO DAILY [facility] Last Admin: 05/02/22 08:39 Dose: 400 mg Ondansetron HCl (Ondansetron Hcl 4 Mg/2 Ml Vial) 4 mg IVPUSH Q8H PRN PRN Reason: Nausea and Vomiting Last Admin: 05/01/22 23:22 Dose: 4 mg Pantoprazole Sodium (Pantoprazole Sodium 40 Mg/10 Ml Vial) 40 mg IVPUSH BID@0630,1630 [facility] Pharmacy Consult (Consult Rx Perform Med Rec) 1 each MISCELLANE ONCE PRN PRN Reason: Consult order Sodium Chloride (0.9 % Sodium Chloride Flush 3 Ml Syringe) 3 ml IVFLUSH QSHIFT [facility] Last Admin: 05/02/22 08:46 Dose: 3 ml Vitamin D (Cholecalciferol (Vitamin D3) 25 Mcg Tablet) 50 mcg PO DAILY [facility] Last Admin: 05/02/22 08:39 Dose: 50 mcg Home Medications Medication Instructions Recorded Confirmed Last Taken Type amiodarone 200 mg tablet 1 tab PO DAILY 02/20/22 05/01/22 Unknown History apixaban 5 mg tablet (Eliquis) 1 tab PO BID 02/20/22 05/01/22 Unknown History bumetanide 1 mg tablet 1 tab PO BID 02/20/22 05/01/22 Unknown History carvedilol 3.125 mg tablet 1 tab PO BID 02/20/22 05/01/22 Unknown History cholecalciferol (vitamin D3) 50 1 tab PO DAILY 02/20/22 05/01/22 Unknown History mcg (2,000 unit) tablet insulin aspart U-100 100 unit/mL See Protocol subcut QIDACHS 02/20/22 05/01/22 Unknown History (3 mL) subcutaneous pen (Novolog FlexPen U-100 Insulin aspart) insulin glargine 100 unit/mL (3 15 unit subcut DAILY 02/20/22 05/01/22 Unknown History mL) subcutaneous pen (Lantus Solostar U-100 Insulin) fluoxetine 20 mg capsule 1 cap PO DAILY 05/01/22 05/01/22 Unknown History Physical Exam Vital Signs: Vital Signs: Last Vital Signs Temp 98.3 F 05/02/22 04:00 Pulse 64 05/02/22 08:43 Resp 18 05/02/22 08:43 BP 164/86 H 05/02/22 08:43 Pulse Ox 98 05/02/22 08:43 O2 Del Method 05/02/22 08:43 O2 Flow Rate 3 05/02/22 08:43 BMI result Body Mass Index 29.5 Const: General: ill appearing Nutritional Appearance: overweight Orientation/consciousness: patient oriented x3 Limitations: language barrier HEENT: Head: Yes normal to inspection Ears: hearing grossly normal bilaterally Mouth: Normal oral and palatal mucosa present Eyes: Sclerae: sclerae normal Pupils: Equal, round and reactive pupils present Neck: Neck: Yes normal visual inspection Chest: Chest palpation & inspection: normal inspection of the chest Resp: Effort & Inspection: normal respiratory effort Auscultation: clear to auscultation bilaterally Cardio: Palpation: normal PMI Rate: regular rate Rhythm: regular rhythm Heart sounds: S1 normal heart sound present, S2 normal heart sound present and no murmurs GI: Palpation (GI): Soft to palpation, nontender and No hepatosplenomegaly present Auscultation: normal bowel sounds Rectal Exam - Male: Yes deferred Skin: General skin exam: no rashes or lesions noted Neuro: General: patient oriented x3, gait normal and moves all extremities Cranial nerves: Yes Equal, round and reactive pupils present Psych: Appearance: grossly normal Mental Status: mental status grossly normal Results Labs 05/06/22 06:39 05/06/22 06:39 Labs: Short CBC 05/01/22 05/02/22 Range/Units 11:42 05:50 WBC 11.1 H 15.1 H (4.8-10.8) X10*3/uL Hgb 7.8 L D 11.5 L D (14.0-18.0) g/dl Hct 23.7 L D 35.1 L D (42.0-52.0) % Plt Count 233 D 207 (160-400) X10*3/uL BMP 05/01/22 05/02/22 05/02/22 11:43 01:21 05:50 Sodium 129 L 134 L 135 Potassium 4.6 4.4 4.8 Chloride 95 L 101 101 Carbon Dioxide 20 L 19 L 19 L BUN 34 H D 22 H 22 H Creatinine 5.39 H* 3.82 H 4.00 H* Calcium 8.0 L D 8.1 L 8.2 L Liver Function 05/01/22 Range/Units 11:43 Total Bilirubin 0.7 (0.0-1.0) mg/dL Direct Bilirubin 0.2 (0.0-0.5) mg/dL AST 12 (5-37) U/L ALT < 6 (0-40) U/L Alkaline Phosphatase 79 D (39-117) U/L Albumin 3.1 L D (3.5-5.0) g/dL Urine 05/01/22 Range/Units 12:47 Urine Color Yellow Urine Appearance Turbid Urine pH 6.0 (5.0-9.0) Ur Specific [place] 1.015 (1.005-1.025) Urine Protein 300 (3+) H (Neg-Trace) mg/dL Urine Glucose (UA) Negative (Negative) mg/dL Assessment and Plan (1) Acute on chronic anemia: Status: Resolved Plan 67 YM with CAD with ischemic cardiomyopathy, HFrEF, ESRD on dialysis T/Th/Sat (compliant), HTN, P AF on eliquis, insulin dependent type 2 diabetes seen at [facility] [place] with feeling generally unwell with generalized weakness and dark ?black? urine for the last 3 days.? As a result he did not go to hemodialysis and came to the ER instead.? Pt denies overt GI bleeding. Anemia is likely multifactorial due to end-stage renal disease, hematuria/possible GI source. Pt was transfused 2 U PRBC during HD. Post transfusion H & H 11.5/35.1 Discussed with Cardiology - pt is considered intermediate to high risk for anesthesia. RECOMMENDATIONS: 1. Agree with IV PPI 2. Monitor H & H daily. 3. Given multiple comorbidities and high anesthesia risk and lack of overt bleeding, I would hold off endoscopic intervention. If pt has active GI bleeding with hemodynamic instability, endoscopic procedures can be considered for therapeutic control. Procedures Date of Service Date of Service: 05/02/22
--- NOTE | 2022-05-02 12:33 | P.CONCA_ITS ---
History of Present Illness History of Present Illness Date of Service: 05/02/22 Requesting physician: Deanna Celeste Chief complaint: ESRD, Anemia, NSTEMI Narrative: [age] gentleman with end-stage renal disease on hemodialysis, multivessel coronary artery disease, ischemic cardiomyopathy, history of congestive heart failure, hypertension, diabetes and paroxysmal atrial fibrillation. He is presenting feeling generally and well and has been diagnosed with anemia. He was noted to have significant lateral ST depression with T-wave inversions. He denies chest discomfort or significant shortness of breath. He did not go for dialysis for few days because he was not feeling well. His hemoglobin dropped to 7.8 from 12.7 a month ago. He was transfused with hemodialysis. His EKG changes in the lateral leads have improved but has new precordial T-wave inversions. he has prolonged QT interval and has been on amiodarone as mentioned above. Is saying is feeling good and denying any chest pain. I performed a cardiac catheterization on him in July 2020. At that time he had 90 worsen proximal LAD stenosis. 95% mid LAD stenosis with heavy calcium. 30% proximal circumflex and 70% proximal om 1 stenosis. RCA had 95% stenosis. At that time he was referred for bypass surgery. I am not sure that he has seen surgery or not and we will look into that. [facility] Past Medical History Medical History Anemia Atherosclerotic cardiovascular disease Chronic heart failure with preserved ejection fraction Chronic kidney disease, unspecified CKD (chronic kidney disease) ESRD (end stage renal disease) on dialysis Essential hypertension PAF (paroxysmal atrial fibrillation) Type 2 diabetes mellitus with unspecified complications Family History Family History Father Esophageal cancer Mother Diabetes Hypertension Surgical History Surgical History History of cardiac catheterization (~07/18/20) History of colon resection Social History Social History Household Members: Unknown / Unable to assess Housing: Unknown / Unable to assess Do you presently have visiting nurse or other home services: Yes Unable to assess alcohol history related to: Unknown Alcohol intake: former Patient Tobacco Use Status: Never used Tobacco Use of substances other than those prescribed or required for medical reasons: No Advance Directives: Yes Advance Directives on File: Yes Advance Directives Date on File: 09/21/21 service: No Current occupational status: unemployed Meds Allergies Allergy/AdvReac Type Severity Reaction Status Date / Time No Known Allergies Allergy Verified 04/08/22 17:45 Active Medications: Current Medications Acetaminophen (Acetaminophen 325 Mg Tablet) 650 mg PO Q6H PRN PRN Reason: Pain, Mild, fever Amiodarone HCl (Amiodarone Hcl 200 Mg Tablet) 200 mg PO DAILY [facility] Last Admin: 05/02/22 08:40 Dose: 200 mg Atorvastatin Calcium (Atorvastatin Calcium 80 Mg Tablet) 80 mg PO BEDTIME [facility] Last Admin: 05/01/22 21:10 Dose: 80 mg Bumetanide (Bumetanide 1 Mg Tablet) 1 mg PO BIDWM [facility]; Protocol Last Admin: 05/02/22 08:40 Dose: 1 mg Carvedilol (Carvedilol 3.125 Mg Tablet) 3.125 mg PO BID [facility]; Protocol Last Admin: 05/02/22 08:39 Dose: 3.125 mg Dextrose (Dextrose 50 % 25 Gm/50 Ml Syringe) 25 gm IVPUSH Q15M PRN; Protocol PRN Reason: per Hypoglycemia Standing Ord. Docusate Sodium (Docusate Sodium 100 Mg Capsule) 100 mg PO DAILY PRN PRN Reason: Constipation Fluoxetine HCl (Fluoxetine Hcl 20 Mg Capsule) 20 mg PO DAILY [facility] Last Admin: 05/02/22 08:40 Dose: 20 mg Glucose (Glucose Gel 15 Gm Gel..Gram.) 15 gm PO Q15M PRN; Protocol PRN Reason: per Hypoglycemia Standing Ord. Ceftriaxone Sodium 1 gm/ (Sodium Chloride) 50 mls @ 100 mls/hr IV Q24H [facility] Insulin Glargine (Insulin Glargine,Hum.Rec.Anlog 100 Unit/Ml 10 Ml Vial) 11 unit SUBCUT DAILY [facility] Last Admin: 05/02/22 08:40 Dose: 11 unit Insulin Human Lispro (Insulin Lispro 100 Unit/Ml 3 Ml Vial) 0 unit SUBCUT QIDACHS [facility]; Protocol Last Admin: 05/02/22 08:46 Dose: Not Given Magnesium Oxide (Magnesium Oxide 400 Mg Tablet) 400 mg PO DAILY [facility] Last Admin: 05/02/22 08:39 Dose: 400 mg Ondansetron HCl (Ondansetron Hcl 4 Mg/2 Ml Vial) 4 mg IVPUSH Q8H PRN PRN Reason: Nausea and Vomiting Last Admin: 05/01/22 23:22 Dose: 4 mg Pantoprazole Sodium (Pantoprazole Sodium 40 Mg/10 Ml Vial) 40 mg IVPUSH BID@0630,1630 [facility] Pharmacy Consult (Consult Rx Perform Med Rec) 1 each MISCELLANE ONCE PRN PRN Reason: Consult order Sodium Chloride (0.9 % Sodium Chloride Flush 3 Ml Syringe) 3 ml IVFLUSH QSHIFT [facility] Last Admin: 05/02/22 08:46 Dose: 3 ml Vitamin D (Cholecalciferol (Vitamin D3) 25 Mcg Tablet) 50 mcg PO DAILY [facility] Last Admin: 05/02/22 08:39 Dose: 50 mcg Home Medications Medication Instructions Recorded Confirmed Last Taken Type amiodarone 200 mg tablet 1 tab PO DAILY 02/20/22 05/01/22 Unknown History apixaban 5 mg tablet (Eliquis) 1 tab PO BID 02/20/22 05/01/22 Unknown History aspirin 81 mg tablet,delayed 1 tab PO DAILY 02/20/22 05/01/22 Unknown History release bumetanide 1 mg tablet 1 tab PO BID 02/20/22 05/01/22 Unknown History carvedilol 3.125 mg tablet 1 tab PO BID 02/20/22 05/01/22 Unknown History cholecalciferol (vitamin D3) 50 1 tab PO DAILY 02/20/22 05/01/22 Unknown History mcg (2,000 unit) tablet insulin aspart U-100 100 unit/mL See Protocol subcut QIDACHS 02/20/22 05/01/22 Unknown History (3 mL) subcutaneous pen (Novolog Flexpen U-100 Insulin aspart) insulin glargine 100 unit/mL (3 15 unit subcut DAILY 02/20/22 05/01/22 Unknown History mL) subcutaneous pen (Lantus Solostar U-100 Insulin) fluoxetine 20 mg capsule 1 cap PO DAILY 05/01/22 05/01/22 Unknown History Physical Exam Vital Signs: Vital Signs: Last Vital Signs Temp 98.3 F 05/02/22 04:00 Pulse 56 05/02/22 11:46 Resp 20 05/02/22 11:46 BP 146/73 H 05/02/22 11:46 Pulse Ox 100 05/02/22 11:46 O2 Del Method 05/02/22 11:46 O2 Flow Rate 3 05/02/22 11:46 BMI result Body Mass Index 29.5 GENERAL APPEARANCE: in no acute distress, pleasant. NECK: no carotid bruit, no jugular venous distention. SKIN: no suspicious lesions, warm and dry. HEART: no murmurs, regular rate and rhythm. LUNGS: clear to auscultation bilaterally. ABDOMEN: soft, nontender. EXTREMITIES: no edema. Objective Labs and Meds Result diagrams: 05/02/22 05:50 05/02/22 05:50 Lab results: Laboratory Results - last 24 hr 05/01/22 05/01/22 05/01/22 11:42 11:43 12:47 WBC RBC Hgb Hct MCV MCH MCHC RDW Plt Count MPV Immature Gran % (Auto) Neut % (Auto) Lymph % (Auto) [place] % (Auto) Eos % (Auto) Baso % (Auto) Lymph # (Auto) [place] # (Auto) Eos # (Auto) Baso # (Auto) Abs Immat Gran (auto) Absolute Neuts (auto) Absolute Nucleated RBC Nucleated RBC % (auto) Sodium 129 L Potassium 4.6 Chloride 95 L Carbon Dioxide 20 L Anion Gap 19 BUN 34 H D Creatinine 5.39 H* Estim Creat Clear Calc 10.9 Estimated GFR 11 POC Glucose Random Glucose 135 H D Lactic Acid Calcium 8.0 L D Magnesium 1.5 L Iron 57 TIBC 194 L % Saturation 29 Unsat Iron Binding 137 Total Bilirubin 0.7 Direct Bilirubin 0.2 AST 12 ALT < 6 Alkaline Phosphatase 79 D Troponin I High Sens 709.4 H* D B-Natriuretic Peptide 1869 H Total Protein 7.0 Albumin 3.1 L D Urine Color Yellow Urine Appearance Turbid Urine pH 6.0 Ur Specific [place] 1.015 Urine Protein 300 (3+) H Urine Glucose (UA) Negative Urine Ketones Trace Urine Blood Large (3+) H Urine Nitrite Negative Ur Leukocyte Esterase Large (3+) H Urine RBC >20 H Urine WBC >50 H Ur Squamous Epith Cells 3-5 Urine Bacteria 4+ Hyaline Casts 3-5 Stool Occult Blood Blood Type Antibody Screen Crossmatch 05/01/22 05/01/22 05/01/22 12:47 13:32 15:37 WBC RBC Hgb Hct MCV MCH MCHC RDW Plt Count MPV Immature Gran % (Auto) Neut % (Auto) Lymph % (Auto) [place] % (Auto) Eos % (Auto) Baso % (Auto) Lymph # (Auto) [place] # (Auto) Eos # (Auto) Baso # (Auto) Abs Immat Gran (auto) Absolute Neuts (auto) Absolute Nucleated RBC Nucleated RBC % (auto) Sodium Potassium Chloride Carbon Dioxide Anion Gap BUN Creatinine Estim Creat Clear Calc Estimated GFR POC Glucose Random Glucose Lactic Acid Calcium Magnesium Iron TIBC % Saturation Unsat Iron Binding Total Bilirubin Direct Bilirubin AST ALT Alkaline Phosphatase Troponin I High Sens 635.6 H* B-Natriuretic Peptide Total Protein Albumin Urine Color Urine Appearance Urine pH Ur Specific [place] Urine Protein Urine Glucose (UA) Urine Ketones Urine Blood Urine Nitrite Ur Leukocyte Esterase Urine RBC Urine WBC Ur Squamous Epith Cells Urine Bacteria Hyaline Casts Stool Occult Blood NEGATIVE Blood Type O Positive Antibody Screen NEGATIVE Crossmatch See Detail 05/01/22 05/01/22 05/01/22 20:17 21:04 21:41 WBC RBC Hgb Hct MCV MCH MCHC RDW Plt Count MPV Immature Gran % (Auto) Neut % (Auto) Lymph % (Auto) [place] % (Auto) Eos % (Auto) Baso % (Auto) Lymph # (Auto) [place] # (Auto) Eos # (Auto) Baso # (Auto) Abs Immat Gran (auto) Absolute Neuts (auto) Absolute Nucleated RBC Nucleated RBC % (auto) Sodium Potassium Chloride Carbon Dioxide Anion Gap BUN Creatinine Estim Creat Clear Calc Estimated GFR POC Glucose 73 77 96 Random Glucose Lactic Acid Calcium Magnesium Iron TIBC % Saturation Unsat Iron Binding Total Bilirubin Direct Bilirubin AST ALT Alkaline Phosphatase Troponin I High Sens B-Natriuretic Peptide Total Protein Albumin Urine Color Urine Appearance Urine pH Ur Specific [place] Urine Protein Urine Glucose (UA) Urine Ketones Urine Blood Urine Nitrite Ur Leukocyte Esterase Urine RBC Urine WBC Ur Squamous Epith Cells Urine Bacteria Hyaline Casts Stool Occult Blood Blood Type Antibody Screen Crossmatch 05/01/22 05/02/22 05/02/22 23:05 01:20 01:21 WBC RBC Hgb Hct MCV MCH MCHC RDW Plt Count MPV Immature Gran % (Auto) Neut % (Auto) Lymph % (Auto) [place] % (Auto) Eos % (Auto) Baso % (Auto) Lymph # (Auto) [place] # (Auto) Eos # (Auto) Baso # (Auto) Abs Immat Gran (auto) Absolute Neuts (auto) Absolute Nucleated RBC Nucleated RBC % (auto) Sodium 134 L Potassium 4.4 Chloride 101 Carbon Dioxide 19 L Anion Gap 18 BUN 22 H Creatinine 3.82 H Estim Creat Clear Calc 15.4 Estimated GFR 16 POC Glucose 144 H Random Glucose 155 H Lactic Acid 1.1 Calcium 8.1 L Magnesium 1.6 Iron TIBC % Saturation Unsat Iron Binding Total Bilirubin Direct Bilirubin AST ALT Alkaline Phosphatase Troponin I High Sens B-Natriuretic Peptide Total Protein Albumin Urine Color Urine Appearance Urine pH Ur Specific [place] Urine Protein Urine Glucose (UA) Urine Ketones Urine Blood Urine Nitrite Ur Leukocyte Esterase Urine RBC Urine WBC Ur Squamous Epith Cells Urine Bacteria Hyaline Casts Stool Occult Blood Blood Type Antibody Screen Crossmatch 05/02/22 05/02/22 05/02/22 01:21 05:50 05:50 WBC 15.1 H RBC 4.01 L D Hgb 11.5 L D Hct 35.1 L D MCV 87.5 MCH 28.7 MCHC 32.8 RDW 15.8 Plt Count 207 MPV 9.2 L Immature Gran % (Auto) 0.6 H Neut % (Auto) 82.8 H Lymph % (Auto) 10.8 L [place] % (Auto) 5.4 Eos % (Auto) 0.1 Baso % (Auto) 0.3 Lymph # (Auto) 1.6 [place] # (Auto) 0.8 Eos # (Auto) 0.0 Baso # (Auto) 0.0 Abs Immat Gran (auto) 0.09 H Absolute Neuts (auto) 12.5 H Absolute Nucleated RBC 0.000 Nucleated RBC % (auto) 0.0 Sodium 135 Potassium 4.8 Chloride 101 Carbon Dioxide 19 L Anion Gap 20 BUN 22 H Creatinine 4.00 H* Estim Creat Clear Calc 14.7 Estimated GFR 15 POC Glucose Random Glucose 119 H Lactic Acid Calcium 8.2 L Magnesium 1.7 Iron TIBC % Saturation Unsat Iron Binding Total Bilirubin Direct Bilirubin AST ALT Alkaline Phosphatase Troponin I High Sens 577.8 H* B-Natriuretic Peptide Total Protein Albumin Urine Color Urine Appearance Urine pH Ur Specific [place] Urine Protein Urine Glucose (UA) Urine Ketones Urine Blood Urine Nitrite Ur Leukocyte Esterase Urine RBC Urine WBC Ur Squamous Epith Cells Urine Bacteria Hyaline Casts Stool Occult Blood Blood Type Antibody Screen Crossmatch 05/02/22 07:57 WBC RBC Hgb Hct MCV MCH MCHC RDW Plt Count MPV Immature Gran % (Auto) Neut % (Auto) Lymph % (Auto) [place] % (Auto) Eos % (Auto) Baso % (Auto) Lymph # (Auto) [place] # (Auto) Eos # (Auto) Baso # (Auto) Abs Immat Gran (auto) Absolute Neuts (auto) Absolute Nucleated RBC Nucleated RBC % (auto) Sodium Potassium Chloride Carbon Dioxide Anion Gap BUN Creatinine Estim Creat Clear Calc Estimated GFR POC Glucose 105 Random Glucose Lactic Acid Calcium Magnesium Iron TIBC % Saturation Unsat Iron Binding Total Bilirubin Direct Bilirubin AST ALT Alkaline Phosphatase Troponin I High Sens B-Natriuretic Peptide Total Protein Albumin Urine Color Urine Appearance Urine pH Ur Specific [place] Urine Protein Urine Glucose (UA) Urine Ketones Urine Blood Urine Nitrite Ur Leukocyte Esterase Urine RBC Urine WBC Ur Squamous Epith Cells Urine Bacteria Hyaline Casts Stool Occult Blood Blood Type Antibody Screen Crossmatch Imaging Radiologist's impression: Impressions Abdomen/Pelvis CT 05/01/22 14:32 IMPRESSION: 1. No evidence of retroperitoneal hemorrhage. 2. Cholelithiasis with gallbladder wall thickening and irregular contour. Clinical correlation with possible acute cholecystitis is recommended. Ultrasound could be of help in further evaluation if patient has symptoms consistent with acute cholecystitis. 3. Interval development of Bilateral small pleural effusions, left greater than right with bibasilar disease likely related to atelectasis. Fleischner guidelines were followed. Abdomen Ultrasound 05/02/22 08:20 IMPRESSION: There are gallstones and abnormal gallbladder wall thickening up to 6 mm in diameter. The appearance is nonspecific, particularly given there was no reported sonographic Silverman's sign (focal tenderness upon imaging of the gallbladder). Assessment and Plan (1) Non-ST elevation HI (NSTEMI): Status: Acute (2) Acute anemia: Status: Acute (3) ESRD (end stage renal disease) on dialysis: Status: Acute Plan 67-year-old gentleman who has history of atrial fibrillation, complex multivessel disease, ischemic cardiomyopathy with ejection fraction of 35-40% based on echocardiography from February 2022. His inferior ends and inferoseptal navarro were akinetic at that time. He is presenting with fatigue and feeling unwell and missed dialysis. Found to be anemic and received blood on hemodialysis. His EKG improved in the lateral leads which were fairly ischemic appearing on admission but he has precordial T-wave inversions. His QT interval is also prolonged. He has been on amiodarone for atrial fibrillation. Favor leaving him on Eliquis only and stop the aspirin. GI has been consulted and will weigh in whether endoscopy is a possibility. I think his perioperative risk is intermediate to high. Repeat EKG tomorrow morning. Monitor QT interval closely and avoid medications which can interact with amiodarone. I have stopped the Zofran because it can prolong QT interval. I think the EKG changes happen due to anemia and blood loss. Is not a to NSTEMI currently and is likely a type 2 event. We will follow along with you. Thank you for allowing me to participate in the care of your patient. Please feel free to contact me if you have any questions. Procedures Date of Service Date of Service: 05/02/22
--- NOTE | 2022-05-02 13:16 | P.PNIM_ITS ---
Subjective Subjective Date of Service: 05/02/22 Interval History: the patient was seen and evaluated this morning Laying in bed, feels comfortable no reported bleeding or melena Denies any fever, chills or shortness of breath No reported other overnight events. Systemic review: No fever, chills or weakness No chest pain, palpitation No shortness of breath or coughing No abdominal pain, nausea or vomiting No urinary symptoms No any rash or wounds Physical Exam Vital Signs: Vital Signs: Last Vital Signs Temp 98.3 F 05/02/22 04:00 Pulse 56 05/02/22 11:46 Resp 20 05/02/22 11:46 BP 146/73 H 05/02/22 11:46 Pulse Ox 100 05/02/22 11:46 O2 Del Method 05/02/22 11:46 O2 Flow Rate 3 05/02/22 11:46 BMI result Body Mass Index 29.5 Const: Other: Constitutional : Alert, oriented, not in distress Neck : Normal inspection, Supple Cardiovascular : RRR, no JVP, no lower extremity edema Respiratory : fair bilateral air entry, no crackles, wheezes or rhonchi Gastrointestinal: soft, lax, Normal bowel sounds, Non tender Skin : Warm, Dry, permacath in place w no erythema Neurological : Alert & oriented x3, No focal deficit , CN 2-12 within normal Objective Data Active Medications Acetaminophen (Acetaminophen 325 Mg Tablet) 650 mg PO Q6H PRN PRN Reason: Pain, Mild, fever Amiodarone HCl (Amiodarone Hcl 200 Mg Tablet) 200 mg PO DAILY [facility] Last Admin: 05/02/22 08:40 Dose: 200 mg Documented By: MARLENY Atorvastatin Calcium (Atorvastatin Calcium 80 Mg Tablet) 80 mg PO BEDTIME [facility] Last Admin: 05/01/22 21:10 Dose: 80 mg Documented By: ANNIE Bumetanide (Bumetanide 1 Mg Tablet) 1 mg PO BIDWM [facility]; Protocol Last Admin: 05/02/22 08:40 Dose: 1 mg Documented By: MARLENY Carvedilol (Carvedilol 3.125 Mg Tablet) 3.125 mg PO BID [facility]; Protocol Last Admin: 05/02/22 08:39 Dose: 3.125 mg Documented By: MARLENY Dextrose (Dextrose 50 % 25 Gm/50 Ml Syringe) 25 gm IVPUSH Q15M PRN; Protocol PRN Reason: per Hypoglycemia Standing Ord. Docusate Sodium (Docusate Sodium 100 Mg Capsule) 100 mg PO DAILY PRN PRN Reason: Constipation Fluoxetine HCl (Fluoxetine Hcl 20 Mg Capsule) 20 mg PO DAILY [facility] Last Admin: 05/02/22 08:40 Dose: 20 mg Documented By: MARLENY Glucose (Glucose Gel 15 Gm Gel..Gram.) 15 gm PO Q15M PRN; Protocol PRN Reason: per Hypoglycemia Standing Ord. Ceftriaxone Sodium 1 gm/ (Sodium Chloride) 50 mls @ 100 mls/hr IV Q24H [facility] Insulin Glargine (Insulin Glargine,Hum.Rec.Anlog 100 Unit/Ml 10 Ml Vial) 11 unit SUBCUT DAILY [facility] Last Admin: 05/02/22 08:40 Dose: 11 unit Documented By: MARLENY Insulin Human Lispro (Insulin Lispro 100 Unit/Ml 3 Ml Vial) 0 unit SUBCUT QIDACHS [facility]; Protocol Last Admin: 05/02/22 08:46 Dose: Not Given Documented By: MARLENY Non-Admin Reason: No Insulin Coverage Magnesium Oxide (Magnesium Oxide 400 Mg Tablet) 400 mg PO DAILY [facility] Last Admin: 05/02/22 08:39 Dose: 400 mg Documented By: MARLENY Pantoprazole Sodium (Pantoprazole Sodium 40 Mg/10 Ml Vial) 40 mg IVPUSH BID @0630,1630 [facility] Pharmacy Consult (Consult Rx Perform Med Rec) 1 each MISCELLANE ONCE PRN PRN Reason: Consult order Sodium Chloride (0.9 % Sodium Chloride Flush 3 Ml Syringe) 3 ml IVFLUSH QSHIFT [facility] Last Admin: 05/02/22 08:46 Dose: 3 ml Documented By: MARLENY Vitamin D (Cholecalciferol (Vitamin D3) 25 Mcg Tablet) 50 mcg PO DAILY [facility] Last Admin: 05/02/22 08:39 Dose: 50 mcg Documented By: MARLENY Labs CBC & Chem 7: 05/02/22 05:50 05/02/22 05:50 Labs: Laboratory Results - last 24 hr 05/01/22 05/01/22 05/01/22 11:43 13:32 15:37 MCV MCH MCHC RDW Plt Count MPV Immature Gran % (Auto) Neut % (Auto) Lymph % (Auto) [place] % (Auto) Eos % (Auto) Baso % (Auto) Lymph # (Auto) [place] # (Auto) Eos # (Auto) Baso # (Auto) Abs Immat Gran (auto) Absolute Neuts (auto) Absolute Nucleated RBC Nucleated RBC % (auto) Anion Gap Estim Creat Clear Calc Estimated GFR POC Glucose Random Glucose Lactic Acid Calcium Magnesium Iron 57 TIBC 194 L % Saturation 29 Unsat Iron Binding 137 Troponin I High Sens 635.6 H* Blood Type O Positive Antibody Screen NEGATIVE Crossmatch See Detail 05/01/22 05/01/22 05/01/22 20:17 21:04 21:41 MCV MCH MCHC RDW Plt Count MPV Immature Gran % (Auto) Neut % (Auto) Lymph % (Auto) [place] % (Auto) Eos % (Auto) Baso % (Auto) Lymph # (Auto) [place] # (Auto) Eos # (Auto) Baso # (Auto) Abs Immat Gran (auto) Absolute Neuts (auto) Absolute Nucleated RBC Nucleated RBC % (auto) Anion Gap Estim Creat Clear Calc Estimated GFR POC Glucose 73 77 96 Random Glucose Lactic Acid Calcium Magnesium Iron TIBC % Saturation Unsat Iron Binding Troponin I High Sens Blood Type Antibody Screen Crossmatch 05/01/22 05/02/22 05/02/22 23:05 01:20 01:21 MCV MCH MCHC RDW Plt Count MPV Immature Gran % (Auto) Neut % (Auto) Lymph % (Auto) [place] % (Auto) Eos % (Auto) Baso % (Auto) Lymph # (Auto) [place] # (Auto) Eos # (Auto) Baso # (Auto) Abs Immat Gran (auto) Absolute Neuts (auto) Absolute Nucleated RBC Nucleated RBC % (auto) Anion Gap 18 Estim Creat Clear Calc 15.4 Estimated GFR 16 POC Glucose 144 H Random Glucose 155 H Lactic Acid 1.1 Calcium 8.1 L Magnesium 1.6 Iron TIBC % Saturation Unsat Iron Binding Troponin I High Sens Blood Type Antibody Screen Crossmatch 05/02/22 05/02/22 05/02/22 01:21 05:50 05:50 MCV 87.5 MCH 28.7 MCHC 32.8 RDW 15.8 Plt Count 207 MPV 9.2 L Immature Gran % (Auto) 0.6 H Neut % (Auto) 82.8 H Lymph % (Auto) 10.8 L [place] % (Auto) 5.4 Eos % (Auto) 0.1 Baso % (Auto) 0.3 Lymph # (Auto) 1.6 [place] # (Auto) 0.8 Eos # (Auto) 0.0 Baso # (Auto) 0.0 Abs Immat Gran (auto) 0.09 H Absolute Neuts (auto) 12.5 H Absolute Nucleated RBC 0.000 Nucleated RBC % (auto) 0.0 Anion Gap 20 Estim Creat Clear Calc 14.7 Estimated GFR 15 POC Glucose Random Glucose 119 H Lactic Acid Calcium 8.2 L Magnesium 1.7 Iron TIBC % Saturation Unsat Iron Binding Troponin I High Sens 577.8 H* Blood Type Antibody Screen Crossmatch 05/02/22 07:57 MCV MCH MCHC RDW Plt Count MPV Immature Gran % (Auto) Neut % (Auto) Lymph % (Auto) [place] % (Auto) Eos % (Auto) Baso % (Auto) Lymph # (Auto) [place] # (Auto) Eos # (Auto) Baso # (Auto) Abs Immat Gran (auto) Absolute Neuts (auto) Absolute Nucleated RBC Nucleated RBC % (auto) Anion Gap Estim Creat Clear Calc Estimated GFR POC Glucose 105 Random Glucose Lactic Acid Calcium Magnesium Iron TIBC % Saturation Unsat Iron Binding Troponin I High Sens Blood Type Antibody Screen Crossmatch Microbiology Microbiology Results: Microbiology 05/01/22 13:08 Urine Culture - Preliminary Urine Catheterized - Straight Catheter Gram negative cara Assessment and Plan (1) Acute UTI: Status: Acute (2) ESRD (end stage renal disease) on dialysis: Status: Acute (3) Acute on chronic anemia: Status: Acute Plan 67-year-old male with past medical history of CAD with ischemic cardiomyopathy, HFrEF, ESRD on dialysis T/Th/Sat (compliant), HTN, PAF on eliquis, insulin depe ndent type 2 diabetes admitted for acute UTI, acute on chronic anemia of unclear etiology, and elevated troponin. # acute on chronic anemia unclear etiology, secondary to ESRD, hematuria, GI loss improved to 11.3 after 2 units transfusion stool occult blood negative has dark urine with 3+ microscopic hematuria on UA without gross hematuria GI consult pending PO PPI follow CBC # Elevated troponin Trop 709 trended down 650s EKG showing normal sinus rhythm with new T-wave inversions in V4-6 Cardiology input appreciated, DC aspirin and keep on Eliquis only, perioperative risk is intermediate to high.EKG changes happen due to anemia and blood loss not fue to NSTEMI Monitor QT interval closely keep on Tele repeat EKG tomorrow # UTI UA with 3+ leuks, 3+ blood, 4+ bacteria pending cultures IV ceftriaxone #ESRD HD TTS Follow BMP Nephrology following #HFrEF Not in exacerbation Continue bumex cardiac diet strict I&O # cholelithiasis CT abdomen/pelvis showing cholelithiasis with gallbladder wall thickening and irregular contour with possible acute cholecystitis. U/S recommended denies abd pain LFTs normal U/S abdomen showing GBS and wall thickening which is not specific, less likely cholecystitis with no pain or other symptoms #CAD/ischemic cardiomyopathy- no anginal cp COntinue statin DC ASA # insulin-dependent type 2 diabetes POC glucose diabetic diet Humalog SSI & Lantus # paroxysmal atrial fibrillation-rate controlled restart Eliquis due to question of bleed continue carvedilol and amiodarone # hyponatremia resolved # depression continue fluoxetine Full code DVT prophylaxis Eliquis Patient requires inpatient stay of overnights due to acute on chronic anemia requiring blood transfusion pending GI eval, UTI pending final sensitivity to prevent possible decompensation into sepsis or symptomatic anemia Quality Stroke Does the patient have a stroke diagnosis?: No VTE Prior VTE?: No VTE Risk Level:: Medical - moderate - high VTE Device Contraindication: N/A - Device Ordered VTE Drug Contraindication: Treatment Not Indicated
[2022-05-02 13:20] LABS: Glucose, Whole Blood 157 mg/dL (60-115)
--- NOTE | 2022-05-02 13:20 | PM.PNNEP ---
Subjective Subjective Date of Service: 05/02/22 Principal diagnosis: ESRD Interval history: Pt missed HD as out pt Had HD yesterday Physical Exam Vital Signs: Vital Signs: Last Vital Signs Temp 98.3 F 05/02/22 04:00 Pulse 56 05/02/22 11:46 Resp 20 05/02/22 11:46 BP 146/73 H 05/02/22 11:46 Pulse Ox 100 05/02/22 11:46 O2 Del Method 05/02/22 11:46 O2 Flow Rate 3 05/02/22 11:46 BMI result Body Mass Index 29.5 GENERAL APPEARANCE: in no acute distress, pleasant. NECK: no carotid bruit, no jugular venous distention. SKIN: no suspicious lesions, warm and dry. HEART: no murmurs, regular rate and rhythm. LUNGS: clear to auscultation bilaterally. ABDOMEN: soft, nontender. EXTREMITIES: no edema. Objective Data Labs CBC & Chem 7: 05/02/22 05:50 05/02/22 05:50 Labs: Laboratory Results - last 24 hr 05/01/22 05/01/22 05/01/22 11:43 13:32 15:37 WBC RBC Hgb Hct MCV MCH MCHC RDW Plt Count MPV Immature Gran % (Auto) Neut % (Auto) Lymph % (Auto) [place] % (Auto) Eos % (Auto) Baso % (Auto) Lymph # (Auto) [place] # (Auto) Eos # (Auto) Baso # (Auto) Abs Immat Gran (auto) Absolute Neuts (auto) Absolute Nucleated RBC Nucleated RBC % (auto) Sodium Potassium Chloride Carbon Dioxide Anion Gap BUN Creatinine Estim Creat Clear Calc Estimated GFR POC Glucose Random Glucose Lactic Acid Calcium Magnesium Iron 57 TIBC 194 L % Saturation 29 Unsat Iron Binding 137 Troponin I High Sens 635.6 H* Blood Type O Positive Antibody Screen NEGATIVE Crossmatch See Detail 05/01/22 05/01/22 05/01/22 20:17 21:04 21:41 WBC RBC Hgb Hct MCV MCH MCHC RDW Plt Count MPV Immature Gran % (Auto) Neut % (Auto) Lymph % (Auto) [place] % (Auto) Eos % (Auto) Baso % (Auto) Lymph # (Auto) [place] # (Auto) Eos # (Auto) Baso # (Auto) Abs Immat Gran (auto) Absolute Neuts (auto) Absolute Nucleated RBC Nucleated RBC % (auto) Sodium Potassium Chloride Carbon Dioxide Anion Gap BUN Creatinine Estim Creat Clear Calc Estimated GFR POC Glucose 73 77 96 Random Glucose Lactic Acid Calcium Magnesium Iron TIBC % Saturation Unsat Iron Binding Troponin I High Sens Blood Type Antibody Screen Crossmatch 05/01/22 05/02/22 05/02/22 23:05 01:20 01:21 WBC RBC Hgb Hct MCV MCH MCHC RDW Plt Count MPV Immature Gran % (Auto) Neut % (Auto) Lymph % (Auto) [place] % (Auto) Eos % (Auto) Baso % (Auto) Lymph # (Auto) [place] # (Auto) Eos # (Auto) Baso # (Auto) Abs Immat Gran (auto) Absolute Neuts (auto) Absolute Nucleated RBC Nucleated RBC % (auto) Sodium 134 L Potassium 4.4 Chloride 101 Carbon Dioxide 19 L Anion Gap 18 BUN 22 H Creatinine 3.82 H Estim Creat Clear Calc 15.4 Estimated GFR 16 POC Glucose 144 H Random Glucose 155 H Lactic Acid 1.1 Calcium 8.1 L Magnesium 1.6 Iron TIBC % Saturation Unsat Iron Binding Troponin I High Sens Blood Type Antibody Screen Crossmatch 05/02/22 05/02/22 05/02/22 01:21 05:50 05:50 WBC 15.1 H RBC 4.01 L D Hgb 11.5 L D Hct 35.1 L D MCV 87.5 MCH 28.7 MCHC 32.8 RDW 15.8 Plt Count 207 MPV 9.2 L Immature Gran % (Auto) 0.6 H Neut % (Auto) 82.8 H Lymph % (Auto) 10.8 L [place] % (Auto) 5.4 Eos % (Auto) 0.1 Baso % (Auto) 0.3 Lymph # (Auto) 1.6 [place] # (Auto) 0.8 Eos # (Auto) 0.0 Baso # (Auto) 0.0 Abs Immat Gran (auto) 0.09 H Absolute Neuts (auto) 12.5 H Absolute Nucleated RBC 0.000 Nucleated RBC % (auto) 0.0 Sodium 135 Potassium 4.8 Chloride 101 Carbon Dioxide 19 L Anion Gap 20 BUN 22 H Creatinine 4.00 H* Estim Creat Clear Calc 14.7 Estimated GFR 15 POC Glucose Random Glucose 119 H Lactic Acid Calcium 8.2 L Magnesium 1.7 Iron TIBC % Saturation Unsat Iron Binding Troponin I High Sens 577.8 H* Blood Type Antibody Screen Crossmatch 05/02/22 05/02/22 07:57 13:17 WBC RBC Hgb Hct MCV MCH MCHC RDW Plt Count MPV Immature Gran % (Auto) Neut % (Auto) Lymph % (Auto) [place] % (Auto) Eos % (Auto) Baso % (Auto) Lymph # (Auto) [place] # (Auto) Eos # (Auto) Baso # (Auto) Abs Immat Gran (auto) Absolute Neuts (auto) Absolute Nucleated RBC Nucleated RBC % (auto) Sodium Potassium Chloride Carbon Dioxide Anion Gap BUN Creatinine Estim Creat Clear Calc Estimated GFR POC Glucose 105 157 H Random Glucose Lactic Acid Calcium Magnesium Iron TIBC % Saturation Unsat Iron Binding Troponin I High Sens Blood Type Antibody Screen Crossmatch Microbiology Microbiology Results: Microbiology 05/01/22 13:08 Urine Catheterized - Straight Catheter Urine Culture - Preliminary Gram negative cara Procedures Date of Service Date of Service: 05/02/22 Assessment & Plan Assessment and plan (1) ESRD (end stage renal disease) on dialysis: Status: Acute (2) Chronic heart failure with preserved ejection fraction: Status: Acute (3) Acute UTI: Status: Acute (4) Non-ST elevation [place] (NSTEMI): Status: Acute Plan IMPRESSION:? 1. A 67-year-old male with end-stage disease on hemodialysis on Tuesdays, , Saturdays with missed dialysis treatment on admission 2. Anemia with acute drop in hemoglobin with a possible question of blood loss. 3. Coronary artery disease with EKG changes on presentation which is new. 4. Urinary tract infection. 5. Hyponatremia. ? RECOMMENDATIONS:? Pt hadr hemodialysis & fluid remove fluid yesterday ?s/p PRBC x 2 transfusion - HB is > 11 HD TTS ? In the meantime, he should continue with his outpatient medication for hypertension.? Antidiabetic medication as ordered by the medical team. ? Thank you for allowing me to participate in medical management of the patient. Time Spent With Patient Time: Total time spent is greater than 50% in coordination of care (as documented) at patient's floor/unit and/or counseling patient: Progress Note: Quality Stroke Does the patient have a stroke diagnosis?: No
[2022-05-02] MEDS: Insulin Lispro 100 UNIT/ML 3 ML VIAL SUBCUT ×2 (13:26→22:02)
[2022-05-02] MEDS: cefTRIAXone sodium 1 GM in 0.9 % Sodium Chloride 50 ML IV (13:26)
--- NOTE | 2022-05-02 13:31 | PC.NURSE ---
Pt asleep, appears comfortable. Insulin per SSI, sinus schuyler on tele. Abx started. Sat 100% on 3lpm via nc, decreased to 2lpm. Left chest portcath intact, clamps on.
[2022-05-02] MEDS: Omeprazole 40 MG CAPSULE.DR PO (16:00)
--- NOTE | 2022-05-02 16:37 | PC.NURSE ---
Pt resting comfortably on stretcher at this time. No complaints, no pain present
[2022-05-02 18:43] LABS: Glucose, Whole Blood 156 mg/dL (60-115)
[2022-05-02 21:16] LABS: Glucose, Whole Blood 173 mg/dL (60-115)
[2022-05-02] MEDS: Atorvastatin Calcium 80 MG TABLET PO (22:02)
[2022-05-02] MEDS: Apixaban 5 MG TABLET PO (22:02)
[2022-05-03] VITALS (7 sets, daily range): BP systolic 128–157; BP diastolic 63–75; PULSE 57–68; RESP 12–18; TEMP 34.8–37.2; O2SAT 84–97
[2022-05-03] MEDS: Omeprazole 40 MG CAPSULE.DR PO ×2 (06:04→16:56)
[2022-05-03 06:17] LABS: MANUAL DIFF FLAG NO
[2022-05-03 06:24] LABS: Basophils Percent Auto 0.2 % (0-2); Eosinophils Absolute Auto 0.1 X10*3/uL (0.0-0.4); Eosinophils Percent Auto 0.4 % (0-4); Hematocrit 30.9 % (42.0-52.0); Hemoglobin 10.1 g/dl (14.0-18.0); Imm Gran Abs Auto 0.09 X10*3/uL (0.00-0.03); Imm Gran Pct Auto 0.7 % (0.0-0.4); Lymphocytes Absolute Auto 2.1 X10*3/uL (1.2-4.9); Lymphocytes Percent Auto 17.1 % (20-40); Mean Corpuscular HGB Conc 32.7 g/dl (31.0-36.0); Mean Corpuscular Hemoglobin 28.8 pg (27.0-33.0); Mean Platelet Volume 8.9 fL (9.4-12.4); Monocytes Absolute Auto 0.8 X10*3/uL (0.1-1.2); Monocytes Percent Auto 6.8 % (2-11); Neutrophils Absolute Auto 9.2 x10*3/uL (2.0-8.3); Neutrophils Percent Auto 74.8 % (45-73); Platelet Count 191 X10*3/uL (160-400); Red Blood Count 3.51 X10*6/uL (4.60-5.80); Red Cell Distribution Width 15.9 % (11.0-16.0); White Blood Count 12.3 X10*3/uL (4.8-10.8)
[2022-05-03 06:38] LABS: Anion Gap 19 (12-20); Blood Urea Nitrogen 41 mg/dL (9-16); Carbon Dioxide 18 mmol/L (22-29); Chloride 98 mmol/L (96-108); Glucose Random 154 mg/dL (60-115); Magnesium 1.6 mg/dL (1.6-2.6); Potassium 5.3 mmol/L (3.3-5.1); Sodium 130 mmol/L (135-145)
[2022-05-03 06:51] LABS: Estimated Glomerular Filt Rate 12
[2022-05-03 08:10] LABS: Glucose, Whole Blood 149 mg/dL (60-115)
--- NOTE | 2022-05-03 08:50 | P.CDIC_ITS ---
CDI Concurrent Query Documentation Clarification: PHYSICIAN'S DOCUMENTATION REQUEST Date of Query: 05/03/22 0851 Patient Name: Liang Nunez Admit Date: 05/01/22 Dear Doctor, A review of the medical record indicates additional documentation may be needed. Please review below and update the documentation accordingly. Clinical Indicators: Risk Factors/Clinical Indicators/Treatments PN 05/02 - Assessment/plan - EKG changes happen due to anemia and blood loss. Acute and chronic anemia, unclear etiology, secondary to ESRD, hematuria, GI loss. Transfusion given in ED 2 units PRBC. HGB 7.8 HCT 23.7 Based on the above, could you clarify in the Progress Notes which of the following is the most likely type of anemia you are evaluating, treating, and/or monitoring? * Acute blood loss anemia * Acute on chronic blood loss anemia * Chronic iron deficiency anemia due to blood loss * Other if known * Unable to determine Use of terms such as suspected, likely, concern for, or probable (associated with a specific diagnosis that is being evaluated, monitored, or treated as if it exists) are acceptable and can be coded in the inpatient setting, when documented at the time of discharge. Thank you, Bertha Chong [facility], CDIS Extension: [phone] Please use your independent medical judgment in providing your response. THIS QUERY IS PART OF THE PERMANENT MEDICAL RECORD Provider Response: Other Other Diagnosis: no evidence of bleeding
[2022-05-03] MEDS: Cholecalciferol (Vitamin D3) 25 MCG TABLET 50 MCG PO (09:44)
[2022-05-03] MEDS: FLUoxetine HCl 20 MG CAPSULE PO (09:44)
[2022-05-03] MEDS: carvediloL 3.125 MG TABLET PO ×2 (09:44→20:48)
[2022-05-03] MEDS: Bumetanide 1 MG TABLET PO ×2 (09:44→16:55)
[2022-05-03] MEDS: Amiodarone HCL 200 MG TABLET PO (09:45)
[2022-05-03] MEDS: Apixaban 5 MG TABLET PO ×2 (09:45→20:48)
[2022-05-03] MEDS: Magnesium Oxide 400 MG TABLET PO (09:45)
[2022-05-03] MEDS: Insulin Glargine,Hum.rec.anlog 100 UNIT/ML 10 ML VIAL 11 UNIT SUBCUT (09:45)
[2022-05-03] MEDS: Sodium Zirconium Cyclosilicate 10 GM POWD.PACK PO (09:46)
[2022-05-03] MEDS: 0.9 % Sodium Chloride Flush 3 ML SYRINGE IVFLUSH ×3 (09:46→20:49)
--- NOTE | 2022-05-03 10:11 | MHC.CM.PN ---
CM met with Patient at bedside and addressed IMM with him, providing him with the original and placing a copy on the chart. Patient's Sister/Alysia @ [phone] is his HCP. Patient has services through [facility] and HD Q //TUE. Home is the goal; CM has initiated and will follow for dc planning.
--- NOTE | 2022-05-03 10:32 | PM.PNNEP ---
Subjective Subjective Date of Service: 05/03/22 Principal diagnosis: ESRD Interval history: Events noted. All recent data reviewed. D/W Hospitalist Physical Exam Vital Signs: Vital Signs: Last Vital Signs Temp 98.9 F 05/03/22 08:00 Pulse 61 05/03/22 08:00 Resp 12 05/03/22 08:00 BP 128/63 05/03/22 08:00 Pulse Ox 97 05/03/22 08:00 O2 Del Method 05/03/22 08:00 O2 Flow Rate 3 05/03/22 08:00 BMI result Body Mass Index 29.7 Const: General: no acute distress Orientation/consciousness: patient oriented x3 Eyes: EOM: EOMs intact bilaterally Resp: Auscultation: diminished lung sounds Cardio: Rate: regular rate GI: Palpation (GI): Soft to palpation Neuro: General: patient oriented x3 Objective Data Labs CBC & Chem 7: 05/03/22 06:07 05/03/22 06:07 Labs: Laboratory Results - last 24 hr 05/02/22 05/02/22 05/02/22 13:17 15:59 21:13 WBC RBC Hgb Hct MCV MCH MCHC RDW Plt Count MPV Immature Gran % (Auto) Neut % (Auto) Lymph % (Auto) [place] % (Auto) Eos % (Auto) Baso % (Auto) Lymph # (Auto) [place] # (Auto) Eos # (Auto) Baso # (Auto) Abs Immat Gran (auto) Absolute Neuts (auto) Absolute Nucleated RBC Nucleated RBC % (auto) Sodium Potassium Chloride Carbon Dioxide Anion Gap BUN Creatinine Estim Creat Clear Calc Estimated GFR POC Glucose 157 H 156 H 173 H Random Glucose Calcium Magnesium 05/03/22 05/03/22 05/03/22 06:07 06:07 07:49 WBC 12.3 H RBC 3.51 L Hgb 10.1 L Hct 30.9 L MCV 88.0 MCH 28.8 MCHC 32.7 RDW 15.9 Plt Count 191 MPV 8.9 L Immature Gran % (Auto) 0.7 H Neut % (Auto) 74.8 H Lymph % (Auto) 17.1 L [place] % (Auto) 6.8 Eos % (Auto) 0.4 Baso % (Auto) 0.2 Lymph # (Auto) 2.1 [place] # (Auto) 0.8 Eos # (Auto) 0.1 Baso # (Auto) 0.0 Abs Immat Gran (auto) 0.09 H Absolute Neuts (auto) 9.2 H Absolute Nucleated RBC 0.000 Nucleated RBC % (auto) 0.0 Sodium 130 L Potassium 5.3 H Chloride 98 Carbon Dioxide 18 L Anion Gap 19 BUN 41 H D Creatinine 4.89 H* Estim Creat Clear Calc 12.0 Estimated GFR 12 POC Glucose 149 H Random Glucose 154 H Calcium 8.0 L Magnesium 1.6 Microbiology Microbiology Results: Microbiology 05/01/22 13:08 Urine Catheterized - Straight Catheter Urine Culture - Final Klebsiella pneumoniae 05/01/22 11:45 Blood - Venous Blood Culture - Preliminary No growth after 24 hours. 05/01/22 11:41 Blood - Venous Blood Culture - Preliminary No growth after 24 hours. Procedures Date of Service Date of Service: 05/03/22 Assessment & Plan Assessment and plan (1) ESRD (end stage renal disease) on dialysis: Status: Acute Assessment and Plan: End Stage Renal Disease Usually gets HD on TTS Renal Diet; Phos binders with meals Continue rest of current management Shall arrange HD follow up in outpatient HD unit if D/Sandeep Time Spent With Patient Time: Total time spent is greater than 50% in coordination of care (as documented) at patient's floor/unit and/or counseling patient: Progress Note: Quality Stroke Does the patient have a stroke diagnosis?: No
--- NOTE | 2022-05-03 11:32 | PM.PNCARD ---
Subjective Subjective Date of Service: 05/03/22 Principal diagnosis: ESRD Interval history: Patient reports no new cardiac symptoms at this point time. Denies any chest pain or shortness of breath. Review of Systems Review of Systems Yes all other systems are reviewed and are negative Physical Exam Vital Signs: Last Vital Signs Temp 98.9 F 05/03/22 08:00 Pulse 61 05/03/22 08:00 Resp 12 05/03/22 08:00 BP 128/63 05/03/22 08:00 Pulse Ox 97 05/03/22 08:00 O2 Del Method 05/03/22 08:00 O2 Flow Rate 3 05/03/22 08:00 BMI result Body Mass Index 29.7 GENERAL APPEARANCE: in no acute distress, pleasant. NECK: no carotid bruit, no jugular venous distention. SKIN: no suspicious lesions, warm and dry. HEART: no murmurs, regular rate and rhythm. LUNGS: clear to auscultation bilaterally. ABDOMEN: soft, nontender. EXTREMITIES: no edema. Objective Labs and Meds Result diagrams: 05/03/22 06:07 05/03/22 06:07 Lab results: Laboratory Results - last 24 hr 05/02/22 05/02/22 05/02/22 13:17 15:59 21:13 WBC RBC Hgb Hct MCV MCH MCHC RDW Plt Count MPV Immature Gran % (Auto) Neut % (Auto) Lymph % (Auto) [place] % (Auto) Eos % (Auto) Baso % (Auto) Lymph # (Auto) [place] # (Auto) Eos # (Auto) Baso # (Auto) Abs Immat Gran (auto) Absolute Neuts (auto) Absolute Nucleated RBC Nucleated RBC % (auto) Sodium Potassium Chloride Carbon Dioxide Anion Gap BUN Creatinine Estim Creat Clear Calc Estimated GFR POC Glucose 157 H 156 H 173 H Random Glucose Calcium Magnesium 05/03/22 05/03/22 05/03/22 06:07 06:07 07:49 WBC 12.3 H RBC 3.51 L Hgb 10.1 L Hct 30.9 L MCV 88.0 MCH 28.8 MCHC 32.7 RDW 15.9 Plt Count 191 MPV 8.9 L Immature Gran % (Auto) 0.7 H Neut % (Auto) 74.8 H Lymph % (Auto) 17.1 L [place] % (Auto) 6.8 Eos % (Auto) 0.4 Baso % (Auto) 0.2 Lymph # (Auto) 2.1 [place] # (Auto) 0.8 Eos # (Auto) 0.1 Baso # (Auto) 0.0 Abs Immat Gran (auto) 0.09 H Absolute Neuts (auto) 9.2 H Absolute Nucleated RBC 0.000 Nucleated RBC % (auto) 0.0 Sodium 130 L Potassium 5.3 H Chloride 98 Carbon Dioxide 18 L Anion Gap 19 BUN 41 H D Creatinine 4.89 H* Estim Creat Clear Calc 12.0 Estimated GFR 12 POC Glucose 149 H Random Glucose 154 H Calcium 8.0 L Magnesium 1.6 Progress Note: A&P Assessment and plan (1) Chronic HFrEF (heart failure with reduced ejection fraction): Status: Acute Assessment and Plan: Patient with heart failure with reduced ejection fraction with moderate LV systolic dysfunction secondary to ischemic cardiomyopathy. Clinically appears to be euvolemic and well compensated current medications. He is on dialysis Tuesdays and and Saturdays. Continue the same. Continue maintain current dry weight. Fluid management will be with help of dialysis sessions. Continue current neurohormonal modulation. (2) Atherosclerotic cardiovascular disease: Status: Acute Assessment and Plan: Diffuse three-vessel disease being followed by Dr. Abarca. Continue current medical therapy. Discussed with GI about re-initiation of oral anticoagulation therapy given his high risk for thromboembolic complication given his multiple risk factors. He should undergo GI procedure as need to evaluate for source of bleeding as this will help with clinical management overall. Continue aggressive risk factor modification. Continue high-intensity statin therapy. Will sign of the case and follow as outpatient. Time Spent With Patient Time: Total time spent is greater than 50% in coordination of care (as documented) at patient's floor/unit and/or counseling patient: Progress Note: Quality Stroke Does the patient have a stroke diagnosis?: No Procedures Date of Service Date of Service: 05/03/22
[2022-05-03 11:38] LABS: Glucose, Whole Blood 187 mg/dL (60-115)
--- NOTE | 2022-05-03 11:41 | PM.DS ---
DS: Providers Provider Date of Service: 05/03/22 Date of admission: 05/01/22 15:30 Primary care physician: Unknown Physician Consults: 05/01/22 12:59 Consult to Cardiology Stat Consulting Provider: Wenceslao Segura Reason for consultation: NSTEMI Consult to Nephrology Stat Consulting Provider: Rick Schmitt Reason for consultation: ESD on HD, missed todays session 05/01/22 15:37 Consult to Gastroenterology Routine Consulting Provider: Ana Cristina Casarez Reason for consultation: acute anemia 05/01/22 16:03 Consult to Cardiology Routine Consulting Provider: Wenceslao Segura Reason for consultation: elevated trop DS: Diagnosis Discharge Diagnosis (1) Acute on chronic anemia: Status: Acute (2) Non-ST elevation UT (NSTEMI): Status: Acute (3) Acute UTI: Status: Acute (4) Elevated troponin: Status: Acute DS: Summary Hospital Course Hospital Course: Admission note HPI 67-year-old male with past medical history of CAD with ischemic cardiomyopathy, HFrEF, ESRD on dialysis T//Tue (compliant), HTN, P AF on eliquis, insulin dependent type 2 diabetes presented to the ED this morning feeling generally unwell with generalized weakness and dark ?black? urine for the last 3 days.? As a result he did not go to hemodialysis today but states otherwise he is compliant with this and came to the ER instead.? There has also been some dysuria and suprapubic discomfort.? Despite being a dialysis patient he does urinate several times daily and is occasionally incontinent wearing briefs.? He denies any maggi blood in the urine and is adamant that it was not stool.? Last bowel movement was yesterday it was brown diarrhea.? He denies any melena or hematochezia.? He denies any fevers or chills, nausea, vomiting, shortness of breath, palpitations, lightheadedness, or chest pain.? On EMS arrival patient was found to be hypoxic around 85% was placed on 2 L nasal cannula.? On arrival to the ER, patient continued nasal cannula at 2 L with oximetry of 96%.? Vital signs stable.? WBC 11.1.? Significant drop in H/H 7.8/23.7% (was 12.7/37.9% 1 month ago).? Denies any source of bleeding.? Creatinine 5.39, BUN 34, sodium 129, chloride 95, CO2 20, potassium 4.6.? Glucose 135.? Magnesium 1.5.? Lactic acid 1.5.? BNP 1869.? Initial trope 709.4.? EKG showing NSR, rate 62 with T-wave inversions V4-6, no IRIS.? CXR negative.? CT abdomen/pelvis showing cholelithiasis with gallbladder wall thickening and irregular contour.? Recommend ultrasound to rule out acute cholecystitis.? Interval development of bilateral small pleural effusions, left greater than right.? UA showing 3+ protein, 3+ blood, 3+ leuks, nitrate negative, 4+ bacteria.? Nursing staff did straight cath the patient revealing cloudy yellow urine, no gross hematuria.? Urine culture and blood cultures pending.? Case discussed with cardiology with question of NSTEMI.? Given question of blood-loss anemia, heparin deferred.? Patient to be transfused 2 units packed red blood cells.? Given 40 mg IV Protonix and 1 g ceftriaxone.? Seen by Nephrology with HD scheduled for later today. Hospital course # acute on chronic anemia unclear etiology, no obvious bleeding noted. Could be multifactorial secondary to ESRD, hematuria, unrecognized GI loss. improved to 11.3 after 2 units transfusion. stool occult blood negative. has dark urine with 3+ microscopic hematuria on UA without gross hematuria believed to be secondary to urine infection with previous urinalysis showing evidence of hematuria previously. Evaluated by Gastroenterology who recommended no intervention given no active bleeding and high risk for complications for Cardiology evaluation. Started on omeprazole and to be followed as outpatient with repeat blood work. # Elevated troponin Noted to have elevated Trop 709 trended down 650s at time of admission with EKG showing normal sinus rhythm with new T-wave inversions in V4-6. Cardiology input appreciated,EKG changes happen due to anemia and blood loss not due to NSTEMI as. The patient was not treated with anticoagulation with low suspicion of NSTEMI at time of admission. Cardiology also recommended DC aspirin and keep on Eliquis only, perioperative risk is intermediate to high. Repeated EKG showed no significant changes. Patient did not report any chest pain during the hospital stay. # UTI Urine culture grew Klebsiella pneumonia that was treated with IV ceftriaxone with good response. Will be discharged on Ceftin for 5 more days to finish 1 week of antibiotics. #ESRD Evaluated by nephrology team as dialysis was done on the day of admission. Plan to continue his schedule TTS at time of discharge. # CT scan abnormality. CT abdomen/pelvis showing cholelithiasis with gallbladder wall thickening and irregular contour with possible acute cholecystitis.? Patient denies any abdominal pain. Liver function test was within normal. U/S abdomen showing gallbladder stones and nonspecific wall thickening,unlikely cholecystitis with no pain or other symptoms. Time Spent with Patient Time attestation: Total time spent providing and/or coordinating discharge services: Discharge coordination time: Greater than 30 minutes Quality: Safe Use of Opioids Does Pt have an Active Cancer Diagnosis on the Problem List?: No Quality: Stroke Does the patient have a stroke diagnosis?: No Physical Exam Vital Signs: Vital Signs: Last Vital Signs Temp 98.9 F 05/03/22 08:00 Pulse 61 05/03/22 08:00 Resp 12 05/03/22 08:00 BP 128/63 05/03/22 08:00 Pulse Ox 97 05/03/22 08:00 O2 Del Method 05/03/22 08:00 O2 Flow Rate 3 05/03/22 08:00 BMI result Body Mass Index 29.7 Const: Other: Constitutional : Alert, oriented, not in distress Neck : Normal inspection, Supple Cardiovascular : RRR, no JVP, no lower extremity edema Respiratory : fair bilateral air entry, no crackles, wheezes or rhonchi Gastrointestinal: soft, lax, Normal bowel sounds, Non tender Skin : Warm, Dry, permacath in place w no erythema Neurological : Alert & oriented x3, No focal deficit , CN 2-12 within normal DS: Data Data Completed and Pending Completed studies during hospitalization [Text1]: Procedures Performance of Urinary Filtration, Intermittent, Less than 6 Hours Per Day (02/20/22) Transfusion of Nonautologous Red Blood Cells into Peripheral Vein, Percutaneous Approach (02/20/22) Labs on day of discharge: Laboratory Results - last 24 hr 05/02/22 05/02/22 05/02/22 13:17 15:59 21:13 WBC RBC Hgb Hct MCV MCH MCHC RDW Plt Count MPV Immature Gran % (Auto) Neut % (Auto) Lymph % (Auto) [place] % (Auto) Eos % (Auto) Baso % (Auto) Lymph # (Auto) [place] # (Auto) Eos # (Auto) Baso # (Auto) Abs Immat Gran (auto) Absolute Neuts (auto) Absolute Nucleated RBC Nucleated RBC % (auto) Sodium Potassium Chloride Carbon Dioxide Anion Gap BUN Creatinine Estim Creat Clear Calc Estimated GFR POC Glucose 157 H 156 H 173 H Random Glucose Calcium Magnesium 05/03/22 05/03/22 05/03/22 06:07 06:07 07:49 WBC 12.3 H RBC 3.51 L Hgb 10.1 L Hct 30.9 L MCV 88.0 MCH 28.8 MCHC 32.7 RDW 15.9 Plt Count 191 MPV 8.9 L Immature Gran % (Auto) 0.7 H Neut % (Auto) 74.8 H Lymph % (Auto) 17.1 L [place] % (Auto) 6.8 Eos % (Auto) 0.4 Baso % (Auto) 0.2 Lymph # (Auto) 2.1 [place] # (Auto) 0.8 Eos # (Auto) 0.1 Baso # (Auto) 0.0 Abs Immat Gran (auto) 0.09 H Absolute Neuts (auto) 9.2 H Absolute Nucleated RBC 0.000 Nucleated RBC % (auto) 0.0 Sodium 130 L Potassium 5.3 H Chloride 98 Carbon Dioxide 18 L Anion Gap 19 BUN 41 H D Creatinine 4.89 H* Estim Creat Clear Calc 12.0 Estimated GFR 12 POC Glucose 149 H Random Glucose 154 H Calcium 8.0 L Magnesium 1.6 05/03/22 11:26 WBC RBC Hgb Hct MCV MCH MCHC RDW Plt Count MPV Immature Gran % (Auto) Neut % (Auto) Lymph % (Auto) [place] % (Auto) Eos % (Auto) Baso % (Auto) Lymph # (Auto) [place] # (Auto) Eos # (Auto) Baso # (Auto) Abs Immat Gran (auto) Absolute Neuts (auto) Absolute Nucleated RBC Nucleated RBC % (auto) Sodium Potassium Chloride Carbon Dioxide Anion Gap BUN Creatinine Estim Creat Clear Calc Estimated GFR POC Glucose 187 H Random Glucose Calcium Magnesium Preliminary micro results at discharge 05/01/22 11:45 Blood Culture - Preliminary Blood - Venous No growth after 24 hours. 05/01/22 11:41 Blood Culture - Preliminary Blood - Venous No growth after [address] scan - abdomen: Radiologist's impression: ITS Impressions Chest X-Ray 05/01/22 11:24 IMPRESSION: No acute cardiopulmonary process. Abdomen/Pelvis CT 05/01/22 14:32 IMPRESSION: 1. No evidence of retroperitoneal hemorrhage. 2. Cholelithiasis with gallbladder wall thickening and irregular contour. Clinical correlation with possible acute cholecystitis is recommended. Ultrasound could be of help in further evaluation if patient has symptoms consistent with acute cholecystitis. 3. Interval development of Bilateral small pleural effusions, left greater than right with bibasilar disease likely related to atelectasis. Fleischner guidelines were followed. Abdomen Ultrasound 05/02/22 08:20 IMPRESSION: There are gallstones and abnormal gallbladder wall thickening up to 6 mm in diameter. The appearance is nonspecific, particularly given there was no reported sonographic Silverman's sign (focal tenderness upon imaging of the gallbladder). Discharge Plan Discharge Anticipated Discharge Date/Time: 05/03/22 11:33 Patient Disposition: Home, Self-Care Discharge Diagnosis: Urinary tract infection Acute on chronic anemia Referrals: Physician,Unknown J [Primary Care Provider] - 1 Week Discharge Medications: New omeprazole 40 mg Capsule,Delayed Release(/Ec) 40 mg PO DAILY Qty: 30 0RF cefuroxime axetil 250 mg tablet 250 mg PO BID Qty: 10 0RF Continued atorvastatin 80 mg tablet 80 mg PO BEDTIME Qty: 90 1RF Rx Instructions: Please call Dr. Abarca's office to schedule follow up appointment in order to continue refills; [phone]. prochlorperazine maleate [Compazine] 5 mg tablet 5 mg PO TID PRN (Reason: nausea and vomiting) Qty: 10 0RF amiodarone 200 mg tablet 1 tab PO DAILY carvedilol 3.125 mg tablet 1 tab PO BID bumetanide 1 mg tablet 1 tab PO BID insulin aspart U-100 [Novolog Flexpen U-100 Insulin] 100 unit/mL (3 mL) insulin pen See Protocol subcut QIDACHS Protocol: Insulin Correction Scale Less than or equal to 110 ---- Give (units): 0 111 to 150 Give (units): 0 151 to 200 Give (units): 2 201 to 250 Give (units): 4 251 to 300 Give (units): 6 301 to 350 Give (units): 8 Greater than 350 Give (units): 10 Call MD if Blood Glucose > : 350 insulin glargine [Lantus Solostar U-100 Insulin] 100 unit/mL (3 mL) insulin pen 15 unit subcut DAILY cholecalciferol (vitamin D3) 50 mcg (2,000 unit) tablet 1 tab PO DAILY Eliquis 5 mg tablet 1 tab PO BID fluoxetine 20 mg capsule 1 cap PO DAILY Discontinued aspirin 81 mg tablet,delayed release (DR/EC) 1 tab PO DAILY Discharge Orders: Discharge Order (Routine); Ordered 05/03/22 Ordered By: Deanna Celeste Diet: Advance to usual diet Activity on Discharge: As tolerated Stand Alone Forms: Patient Portal Discharge page Care Plan Goals: Read below Health Concerns: Read below Plan of Treatment: Read below Assessment: You presented to the hospital complaining of dark urine and generalized weakness. Found to have evidence of urine infection with associated low blood level. Received 2 units of blood as you were evaluated by director software development who recommended to hold on any procedure at this point as no evidence of bleeding noted. Urine infection treated with IV antibiotics with good response as the culture grew bacteria called a Klebsiella pneumonia sensitive to antibiotics. Evaluated by primer charger who recommended to discontinue aspirin and keep you on Eliquis only with no evidence of heart attack. Had dialysis session inpatient as you were followed by nephrology team. Continue Ceftin for 5 more days Continue dialysis as outpatient Discontinue aspirin Start omeprazole daily To follow-up with Nephrology at dialysis center and repeat blood work. Please come back to the hospital for any bleeding with urine or stool or increased weakness.
--- NOTE | 2022-05-03 11:42 | MHC.CM.PN ---
Patient has been medically cleared for dc to home today, self care.
[2022-05-03] MEDS: Insulin Lispro 100 UNIT/ML 3 ML VIAL SUBCUT ×2 (12:12→16:56)
[2022-05-03 13:55] LABS: Glucose, Whole Blood 146 mg/dL (60-115)
[2022-05-03] MEDS: cefTRIAXone sodium 1 GM in 0.9 % Sodium Chloride 50 ML IV (14:16)
--- NOTE | 2022-05-03 14:34 | MHC.CM.PN ---
RN informed CM that Patient expressed reservations regarding being dc today(not feeling well/feeling dizzy). RICCI spoke with MD, who will order a PT eval, keep Patient overnight, provide HD in the AM and reconsider dc to home tomorrow. CM will follow.
--- NOTE | 2022-05-03 15:28 | P.PNIM_ITS ---
Subjective Subjective Date of Service: 05/03/22 Interval History: the patient was seen and evaluated this morning Laying in bed, feels dizzy today Denies any fever, chills or shortness of breath No reported other overnight events. Systemic review: No fever, chills or weakness No chest pain, palpitation No shortness of breath or coughing No abdominal pain, nausea or vomiting No urinary symptoms No any rash or wounds Physical Exam Vital Signs: Vital Signs: Last Vital Signs Temp 98.2 F 05/03/22 11: Pulse 59 05/03/22 11:22 Resp 16 05/03/22 11:22 BP 151/73 H 05/03/22 11:22 Pulse Ox 91 L 05/03/22 11:22 O2 Del Method 05/03/22 11:22 O2 Flow Rate 3 05/03/22 08:00 BMI result Body Mass Index 29.7 Const: Other: Constitutional : Alert, oriented, not in distress Neck : Normal inspection, Supple Cardiovascular : RRR, no JVP, no lower extremity edema Respiratory : fair bilateral air entry, no crackles, wheezes or rhonchi Gastrointestinal: soft, lax, Normal bowel sounds, Non tender Skin : Warm, Dry, permacath in place w no erythema Neurological : Alert & oriented x3, No focal deficit , CN 2-12 within normal Objective Data Active Medications Acetaminophen (Acetaminophen 325 Mg Tablet) 650 mg PO Q6H PRN PRN Reason: Pain, Mild, fever Amiodarone HCl (Amiodarone Hcl 200 Mg Tablet) 200 mg PO DAILY [facility] Last Admin: 05/03/22 09:45 Dose: 200 mg Documented By: LUIS DANIEL Apixaban (Apixaban 5 Mg Tablet) 5 mg PO BID [facility] Last Admin: 05/03/22 09:45 Dose: 5 mg Documented By: LUIS DANIEL Atorvastatin Calcium (Atorvastatin Calcium 80 Mg Tablet) 80 mg PO BEDTIME [facility] Last Admin: 05/02/22 22:02 Dose: 80 mg Documented By: MARIBEL Bumetanide (Bumetanide 1 Mg Tablet) 1 mg PO BIDWM [facility]; Protocol Last Admin: 05/03/22 09:44 Dose: 1 mg Documented By: LUIS DANIEL Carvedilol (Carvedilol 3.125 Mg Tablet) 3.125 mg PO BID [facility]; Protocol Last Admin: 05/03/22 09:44 Dose: 3.125 mg Documented By: LUIS DANIEL Dextrose (Dextrose 50 % 25 Gm/50 Ml Syringe) 25 gm IVPUSH Q15M PRN; Protocol PRN Reason: per Hypoglycemia Standing Ord. Docusate Sodium (Docusate Sodium 100 Mg Capsule) 100 mg PO DAILY PRN PRN Reason: Constipation Fluoxetine HCl (Fluoxetine Hcl 20 Mg Capsule) 20 mg PO DAILY [facility] Last Admin: 05/03/22 09:44 Dose: 20 mg Documented By: LUIS DANIEL Glucose (Glucose Gel 15 Gm Gel..Gram.) 15 gm PO Q15M PRN; Protocol PRN Reason: per Hypoglycemia Standing Ord. Ceftriaxone Sodium 1 gm/ (Sodium Chloride) 50 mls @ 100 mls/hr IV Q24H [facility] Last Infusion: 05/03/22 15:06 Dose: 0 mls/hr Documented By: LUIS DANIEL Insulin Glargine (Insulin Glargine,Hum.Rec.Anlog 100 Unit/Ml 10 Ml Vial) 11 unit SUBCUT DAILY [facility] Last Admin: 05/03/22 09:45 Dose: 11 unit Documented By: LUIS DANIEL Insulin Human Lispro (Insulin Lispro 100 Unit/Ml 3 Ml Vial) 0 unit SUBCUT QIDACHS [facility]; Protocol Last Admin: 05/03/22 12:12 Dose: 2 unit Documented By: LUIS DANIEL Magnesium Oxide (Magnesium Oxide 400 Mg Tablet) 400 mg PO DAILY [facility] Last Admin: 05/03/22 09:45 Dose: 400 mg Documented By: LUIS DANIEL Omeprazole (Omeprazole 40 Mg Lisset.) 40 mg PO BID@0630,1630 [facility] Last Admin: 05/03/22 06:04 Dose: 40 mg Documented By: HAZEL Pharmacy Consult (Consult Rx Perform Med Rec) 1 each MISCELLANE ONCE PRN PRN Reason: Consult order Sodium Chloride (0.9 % Sodium Chloride Flush 3 Ml Syringe) 3 ml IVFLUSH QSHIFT [facility] Last Admin: 05/03/22 09:46 Dose: 3 ml Documented By: LUIS DANIEL Vitamin D (Cholecalciferol (Vitamin D3) 25 Mcg Tablet) 50 mcg PO DAILY [facility] Last Admin: 05/03/22 09:44 Dose: 50 mcg Documented By: HO.KODOSOB Labs CBC & Chem 7: 05/03/22 06:07 05/03/22 06:07 Labs: Laboratory Results - last 24 hr 05/02/22 05/02/22 05/03/22 15:59 21:13 06:07 MCV 88.0 MCH 28.8 MCHC 32.7 RDW 15.9 Plt Count 191 MPV 8.9 L Immature Gran % (Auto) 0.7 H Neut % (Auto) 74.8 H Lymph % (Auto) 17.1 L [place] % (Auto) 6.8 Eos % (Auto) 0.4 Baso % (Auto) 0.2 Lymph # (Auto) 2.1 [place] # (Auto) 0.8 Eos # (Auto) 0.1 Baso # (Auto) 0.0 Abs Immat Gran (auto) 0.09 H Absolute Neuts (auto) 9.2 H Absolute Nucleated RBC 0.000 Nucleated RBC % (auto) 0.0 Anion Gap Estim Creat Clear Calc Estimated GFR POC Glucose 156 H 173 H Random Glucose Calcium Magnesium 05/03/22 05/03/22 05/03/22 06:07 07:49 11:26 MCV MCH MCHC RDW Plt Count MPV Immature Gran % (Auto) Neut % (Auto) Lymph % (Auto) [place] % (Auto) Eos % (Auto) Baso % (Auto) Lymph # (Auto) [place] # (Auto) Eos # (Auto) Baso # (Auto) Abs Immat Gran (auto) Absolute Neuts (auto) Absolute Nucleated RBC Nucleated RBC % (auto) Anion Gap 19 Estim Creat Clear Calc 12.0 Estimated GFR 12 POC Glucose 149 H 187 H Random Glucose 154 H Calcium 8.0 L Magnesium 1.6 05/03/22 13:50 MCV MCH MCHC RDW Plt Count MPV Immature Gran % (Auto) Neut % (Auto) Lymph % (Auto) [place] % (Auto) Eos % (Auto) Baso % (Auto) Lymph # (Auto) [place] # (Auto) Eos # (Auto) Baso # (Auto) Abs Immat Gran (auto) Absolute Neuts (auto) Absolute Nucleated RBC Nucleated RBC % (auto) Anion Gap Estim Creat Clear Calc Estimated GFR POC Glucose 146 H Random Glucose Calcium Magnesium Microbiology Microbiology Results: Microbiology 05/01/22 11:45 Blood Culture - Preliminary Blood - Venous No growth after 48 hours. 05/01/22 11:41 Blood Culture - Preliminary Blood - Venous No growth after 48 hours. 05/01/22 13:08 Urine Culture - Final Urine Catheterized - Straight Catheter Klebsiella pneumoniae Assessment and Plan (1) Hyperkalemia: Status: Acute (2) Hyponatremia: Status: Acute (3) Elevated troponin: Status: Acute (4) Acute on chronic anemia: Status: Acute (5) Acute UTI: Status: Acute Plan 67-year-old male with past medical history of CAD with ischemic cardiomyopathy, HFrEF, ESRD on dialysis T/Th/Sat (compliant), HTN, PAF on eliquis, insulin dependent type 2 diabetes admitted for acute UTI, acute on chronic anemia of unclear etiology, and elevated troponin. # Hyperkalemia Lokelma given, follow BMP # Hyponatremia 130 this morning, should improve with dialysis # Unsteady gait PT to evaluate risk of fall per nursing staff # acute on chronic anemia unclear etiology, secondary to ESRD, hematuria, GI loss improved to 10.1 after 2 units transfusion stool occult blood negative has dark urine with 3+ microscopic hematuria on UA without gross hematuria, noted previously GI consult pending PO PPI follow CBC # Elevated troponin EKG showing normal sinus rhythm with new T-wave inversions in V4-6 Cardiology input appreciated, DC aspirin and keep on Eliquis only keep on Tele # UTI UA with 3+ leuks, 3+ blood, 4+ bacteria Klebsiella growing in urine cultures IV ceftriaxone #ESRD HD TTS Follow BMP Nephrology following #HFrEF Not in exacerbation Continue bumex cardiac diet strict I&O # cholelithiasis CT abdomen/pelvis showing cholelithiasis with gallbladder wall thickening and irregular contour with possible acute cholecystitis.? U/S recommended denies abd pain LFTs normal U/S abdomen showing GBS and wall thickening which is not specific, less likely cholecystitis with no pain or other symptoms #CAD/ischemic cardiomyopathy- no anginal cp COntinue statin DC ASA # insulin-dependent type 2 diabetes POC glucose diabetic diet Humalog SSI & Lantus # paroxysmal atrial fibrillation-rate controlled restart Eliquis due to question of bleed continue carvedilol and amiodarone # hyponatremia resolved # depression continue fluoxetine Full code DVT prophylaxis Eliquis Patient requires inpatient stay of overnights due to acute on chronic anemia , needs HD, pending PT Eval and safe discharge plan Quality Stroke Does the patient have a stroke diagnosis?: No VTE Prior VTE?: No VTE Risk Level:: Medical - moderate - high VTE Device Contraindication: N/A - Device Ordered VTE Drug Contraindication: Treatment Not Indicated
[2022-05-03 16:44] LABS: Glucose, Whole Blood 164 mg/dL (60-115)
[2022-05-03 20:21] LABS: Glucose, Whole Blood 139 mg/dL (60-115)
--- NOTE | 2022-05-03 20:40 | PC.NURSE ---
Family expressed feelings with staff how they feel their family member, the pt, is being neglected, and that staff are ignoring their requests to help the pt. I expressed that i was sorry they felt that the pt was being ignored, I also expressed how I started my shift at 1900 and since the start of my shift i have came in to see the pt, introduced myself to the family, made sure he had dinner because his tray never came to the floor, and i also replaced the [place] cath that had fallen off. Family agreed I have been attentive towards pt and family since the start of my shift. issues expressed from family passed on to management.
[2022-05-03] MEDS: Atorvastatin Calcium 80 MG TABLET PO (20:48)
[2022-05-04 03:23] VITALS: BP 150/71; PULSE 63; RESP 15; TEMP 36.1; O2SAT 90
[2022-05-04] MEDS: Omeprazole 40 MG CAPSULE.DR PO ×2 (05:53→17:22)
[2022-05-04 06:34] LABS: MANUAL DIFF FLAG NO
[2022-05-04 06:42] LABS: Basophils Percent Auto 0.2 % (0-2); Eosinophils Absolute Auto 0.1 X10*3/uL (0.0-0.4); Eosinophils Percent Auto 1.2 % (0-4); Hematocrit 30.2 % (42.0-52.0); Imm Gran Abs Auto 0.07 X10*3/uL (0.00-0.03); Imm Gran Pct Auto 0.8 % (0.0-0.4); Lymphocytes Absolute Auto 2.2 X10*3/uL (1.2-4.9); Lymphocytes Percent Auto 23.7 % (20-40); Mean Corpuscular HGB Conc 33.1 g/dl (31.0-36.0); Mean Corpuscular Hemoglobin 28.6 pg (27.0-33.0); Mean Corpuscular Volume 86.3 fL (80.0-98.0); Monocytes Absolute Auto 0.6 X10*3/uL (0.1-1.2); Monocytes Percent Auto 6.7 % (2-11); Neutrophils Absolute Auto 6.3 x10*3/uL (2.0-8.3); Neutrophils Percent Auto 67.4 % (45-73); Platelet Count 198 X10*3/uL (160-400); Red Cell Distribution Width 15.7 % (11.0-16.0); White Blood Count 9.3 X10*3/uL (4.8-10.8)
[2022-05-04 07:01] LABS: Anion Gap 19 (12-20); Blood Urea Nitrogen 51 mg/dL (9-16); Calcium 8.1 mg/dL (8.4-10.2); Carbon Dioxide 19 mmol/L (22-29); Chloride 97 mmol/L (96-108); Creatinine Clr Calc Pharmacy 10.5; Estimated Glomerular Filt Rate 10; Glucose Random 106 mg/dL (60-115); Magnesium 1.7 mg/dL (1.6-2.6); Potassium 4.7 mmol/L (3.3-5.1); Sodium 130 mmol/L (135-145)
[2022-05-04 07:25] VITALS: BP 175/84; PULSE 58; RESP 18; TEMP 36.7; O2SAT 95
[2022-05-04 07:32] LABS: Glucose, Whole Blood 103 mg/dL (60-115)
[2022-05-04] MEDS: Bumetanide 1 MG TABLET PO (07:50)
[2022-05-04] MEDS: Amiodarone HCL 200 MG TABLET PO (07:50)
[2022-05-04] MEDS: Apixaban 5 MG TABLET PO ×2 (07:50→20:15)
[2022-05-04] MEDS: Cholecalciferol (Vitamin D3) 25 MCG TABLET 50 MCG PO (07:50)
[2022-05-04] MEDS: Magnesium Oxide 400 MG TABLET PO (07:50)
[2022-05-04] MEDS: carvediloL 3.125 MG TABLET PO ×2 (07:50→20:15)
[2022-05-04] MEDS: Insulin Glargine,Hum.rec.anlog 100 UNIT/ML 10 ML VIAL 11 UNIT SUBCUT (07:51)
[2022-05-04] MEDS: FLUoxetine HCl 20 MG CAPSULE PO (07:51)
[2022-05-04] MEDS: 0.9 % Sodium Chloride Flush 3 ML SYRINGE IVFLUSH ×2 (08:03→20:16)
--- NOTE | 2022-05-04 09:50 | PM.PNNEP ---
Subjective Subjective Date of Service: 05/04/22 Principal diagnosis: ESRD Interval history: Seen on HD this AM. Events noted. All recent data reviewed with HD RN Physical Exam Vital Signs: Vital Signs: Last Vital Signs Temp 98.0 F 05/04/22 07:25 Pulse 58 05/04/22 07:25 Resp 18 05/04/22 07:25 BP 175/84 H 05/04/22 07:25 Pulse Ox 95 05/04/22 07:25 O2 Del Method 05/04/22 07:25 O2 Flow Rate 2 05/04/22 07:25 BMI result Body Mass Index 29.7 Const: General: no acute distress Orientation/consciousness: patient oriented x3 Eyes: EOM: EOMs intact bilaterally Neck: Neck: Yes supple Resp: Auscultation: diminished lung sounds Cardio: Rate: regular rate GI: Palpation (GI): Soft to palpation Neuro: General: patient oriented x3 and moves all extremities Objective Data Labs CBC & Chem 7: 05/04/22 06:10 05/04/22 06:10 Labs: Laboratory Results - last 24 hr 05/03/22 05/03/22 05/03/22 11:26 13:50 16:34 WBC RBC Hgb Hct MCV MCH MCHC RDW Plt Count MPV Immature Gran % (Auto) Neut % (Auto) Lymph % (Auto) [place] % (Auto) Eos % (Auto) Baso % (Auto) Lymph # (Auto) [place] # (Auto) Eos # (Auto) Baso # (Auto) Abs Immat Gran (auto) Absolute Neuts (auto) Absolute Nucleated RBC Nucleated RBC % (auto) Sodium Potassium Chloride Carbon Dioxide Anion Gap BUN Creatinine Estim Creat Clear Calc Estimated GFR POC Glucose 187 H 146 H 164 H Random Glucose Calcium Magnesium 05/03/22 05/04/22 05/04/22 19:23 06:10 06:10 WBC 9.3 RBC 3.50 L Hgb 10.0 L Hct 30.2 L MCV 86.3 MCH 28.6 MCHC 33.1 RDW 15.7 Plt Count 198 MPV 9.0 L Immature Gran % (Auto) 0.8 H Neut % (Auto) 67.4 Lymph % (Auto) 23.7 [place] % (Auto) 6.7 Eos % (Auto) 1.2 Baso % (Auto) 0.2 Lymph # (Auto) 2.2 [place] # (Auto) 0.6 Eos # (Auto) 0.1 Baso # (Auto) 0.0 Abs Immat Gran (auto) 0.07 H Absolute Neuts (auto) 6.3 Absolute Nucleated RBC 0.000 Nucleated RBC % (auto) 0.0 Sodium 130 L Potassium 4.7 Chloride 97 Carbon Dioxide 19 L Anion Gap 19 BUN 51 H Creatinine 5.58 H* Estim Creat Clear Calc 10.5 Estimated GFR 10 POC Glucose 139 H Random Glucose 106 Calcium 8.1 L Magnesium 1.7 05/04/22 07:29 WBC RBC Hgb Hct MCV MCH MCHC RDW Plt Count MPV Immature Gran % (Auto) Neut % (Auto) Lymph % (Auto) [place] % (Auto) Eos % (Auto) Baso % (Auto) Lymph # (Auto) [place] # (Auto) Eos # (Auto) Baso # (Auto) Abs Immat Gran (auto) Absolute Neuts (auto) Absolute Nucleated RBC Nucleated RBC % (auto) Sodium Potassium Chloride Carbon Dioxide Anion Gap BUN Creatinine Estim Creat Clear Calc Estimated GFR POC Glucose 103 Random Glucose Calcium Magnesium Microbiology Microbiology Results: Microbiology 05/01/22 11:45 Blood - Venous Blood Culture - Preliminary No growth after 48 hours. 05/01/22 11:41 Blood - Venous Blood Culture - Preliminary No growth after 48 hours. 05/01/22 13:08 Urine Catheterized - Straight Catheter Urine Culture - Final Klebsiella pneumoniae Procedures Date of Service Date of Service: 05/04/22 Assessment & Plan Assessment and plan (1) ESRD (end stage renal disease) on dialysis: Status: Acute Assessment and Plan: End Stage Renal Disease Usually gets HD on TTS; Seen on HD Continued volume optimization on HD Renal Diet; Phos binders with meals May need F/U CXR after HD Continue rest of current management Shall arrange HD follow up in outpatient HD unit when D/Sandeep Time Spent With Patient Time: Total time spent is greater than 50% in coordination of care (as documented) at patient's floor/unit and/or counseling patient: Progress Note: Quality Stroke Does the patient have a stroke diagnosis?: No
[2022-05-04 12:26] VITALS: BP 114/61; PULSE 54; RESP 20; TEMP 36.3; O2SAT 97
[2022-05-04 12:32] LABS: Glucose, Whole Blood 92 mg/dL (60-115)
--- NOTE | 2022-05-04 14:36 | P.PNIM_ITS ---
Subjective Subjective Date of Service: 05/04/22 Interval History: the patient was seen and evaluated this morning Laying in bed, feels tired still, had episodes of hypoxia overnight Going for dialysis No reported other overnight events. Systemic review: No fever, chills or weakness No chest pain, palpitation Dyspnea but no coughing No abdominal pain, nausea or vomiting No urinary symptoms No any rash or wounds Physical Exam Vital Signs: Vital Signs: Last Vital Signs Temp 97.4 F 05/04/22 12:26 Pulse 54 05/04/22 12:26 Resp 20 05/04/22 12:26 BP 114/61 05/04/22 12:26 Pulse Ox 97 05/04/22 12:26 O2 Del Method 05/04/22 12: O2 Flow Rate 2 05/04/22 12:26 BMI result Body Mass Index 29.7 Const: Other: Constitutional : Alert, oriented, not in distress Neck : Normal inspection, Supple Cardiovascular : RRR, no JVP, no lower extremity edema Respiratory : fair bilateral air entry, basal left lower crackles, no wheezes or rhonchi Gastrointestinal: soft, lax, Normal bowel sounds, Non tender Skin : Warm, Dry, permacath in place w no erythema Neurological : Alert & oriented x3, No focal deficit Objective Data Active Medications Acetaminophen (Acetaminophen 325 Mg Tablet) 650 mg PO Q6H PRN PRN Reason: Pain, Mild, fever Amiodarone HCl (Amiodarone Hcl 200 Mg Tablet) 200 mg PO DAILY [facility] Last Admin: 05/04/22 07:50 Dose: 200 mg Documented By: ROBBIE Apixaban (Apixaban 5 Mg Tablet) 5 mg PO BID [facility] Last Admin: 05/04/22 07:50 Dose: 5 mg Documented By: ROBBIE Atorvastatin Calcium (Atorvastatin Calcium 80 Mg Tablet) 80 mg PO BEDTIME [facility] Last Admin: 05/03/22 20:48 Dose: 80 mg Documented By: MARIBEL Bumetanide (Bumetanide 1 Mg Tablet) 1 mg PO BIDWM [facility]; Protocol Last Admin: 05/04/22 07:50 Dose: 1 mg Documented By: ROBBIE Carvedilol (Carvedilol 3.125 Mg Tablet) 3.125 mg PO BID [facility]; Protocol Last Admin: 05/04/22 07:50 Dose: 3.125 mg Documented By: ROBBIE Dextrose (Dextrose 50 % 25 Gm/50 Ml Syringe) 25 gm IVPUSH Q15M PRN; Protocol PRN Reason: per Hypoglycemia Standing Ord. Docusate Sodium (Docusate Sodium 100 Mg Capsule) 100 mg PO DAILY PRN PRN Reason: Constipation Fluoxetine HCl (Fluoxetine Hcl 20 Mg Capsule) 20 mg PO DAILY [facility] Last Admin: 05/04/22 07:51 Dose: 20 mg Documented By: ROBBIE Glucose (Glucose Gel 15 Gm Gel..Gram.) 15 gm PO Q15M PRN; Protocol PRN Reason: per Hypoglycemia Standing Ord. Ceftriaxone Sodium 1 gm/ (Sodium Chloride) 50 mls @ 100 mls/hr IV Q24H [facility] Last Infusion: 05/03/22 15:06 Dose: 0 mls/hr Documented By: LUIS DANIEL Insulin Glargine (Insulin Glargine,Hum.Rec.Anlog 100 Unit/Ml 10 Ml Vial) 11 unit SUBCUT DAILY [facility] Last Admin: 05/04/22 07:51 Dose: 11 unit Documented By: ROBBIE Insulin Human Lispro (Insulin Lispro 100 Unit/Ml 3 Ml Vial) 0 unit SUBCUT QID ACHS [facility]; Protocol Last Admin: 05/04/22 12:59 Dose: Not Given Documented By: ROBBIE Non-Admin Reason: No Insulin Coverage Magnesium Oxide (Magnesium Oxide 400 Mg Tablet) 400 mg PO DAILY [facility] Last Admin: 05/04/22 07:50 Dose: 400 mg Documented By: ROBBIE Omeprazole (Omeprazole 40 Mg Lisset.) 40 mg PO BID@0630,1630 [facility] Last Admin: 05/04/22 05:53 Dose: 40 mg Documented By: MARIBEL Pharmacy Consult (Consult Rx Perform Med Rec) 1 each MISCELLANE ONCE PRN PRN Reason: Consult order Sodium Chloride (0.9 % Sodium Chloride Flush 3 Ml Syringe) 3 ml IVFLUSH QSHIFT [facility] Last Admin: 05/04/22 08:03 Dose: 3 ml Documented By: ROBBIE Vitamin D (Cholecalciferol (Vitamin D3) 25 Mcg Tablet) 50 mcg PO DAILY [facility] Last Admin: 05/04/22 07:50 Dose: 50 mcg Documented By: ROBBIE Labs CBC & Chem 7: 05/04/22 06:10 05/04/22 06:10 Labs: Laboratory Results - last 24 hr 05/03/22 05/03/22 05/04/22 16:34 19:23 06:10 MCV 86.3 MCH 28.6 MCHC 33.1 RDW 15.7 Plt Count 198 MPV 9.0 L Immature Gran % (Auto) 0.8 H Neut % (Auto) 67.4 Lymph % (Auto) 23.7 [place] % (Auto) 6.7 Eos % (Auto) 1.2 Baso % (Auto) 0.2 Lymph # (Auto) 2.2 [place] # (Auto) 0.6 Eos # (Auto) 0.1 Baso # (Auto) 0.0 Abs Immat Gran (auto) 0.07 H Absolute Neuts (auto) 6.3 Absolute Nucleated RBC 0.000 Nucleated RBC % (auto) 0.0 Anion Gap Estim Creat Clear Calc Estimated GFR POC Glucose 164 H 139 H Random Glucose Calcium Magnesium 05/04/22 05/04/22 05/04/22 06:10 07:29 12:28 MCV MCH MCHC RDW Plt Count MPV Immature Gran % (Auto) Neut % (Auto) Lymph % (Auto) [place] % (Auto) Eos % (Auto) Baso % (Auto) Lymph # (Auto) [place] # (Auto) Eos # (Auto) Baso # (Auto) Abs Immat Gran (auto) Absolute Neuts (auto) Absolute Nucleated RBC Nucleated RBC % (auto) Anion Gap 19 Estim Creat Clear Calc 10.5 Estimated GFR 10 POC Glucose 103 92 Random Glucose 106 Calcium 8.1 L Magnesium 1.7 Microbiology Microbiology Results: Microbiology 05/01/22 11:45 Blood Culture - Preliminary Blood - Venous No growth after 48 hours. 05/01/22 11:41 Blood Culture - Preliminary Blood - Venous No growth after 48 hours. Assessment and Plan (1) Acute respiratory failure with hypoxia: Status: Acute (2) Pneumonia: Status: Acute (3) ESRD (end stage renal disease) on dialysis: Status: Acute (4) Acute on chronic anemia: Status: Acute Plan 67-year-old male with past medical history of CAD with ischemic cardiomyopathy, HFrEF, ESRD on dialysis T/Th/Sat (compliant), HTN, PAF on eliquis, insulin dependent type 2 diabetes admitted for acute UTI, acute on chronic anemia of unclear etiology, and elevated troponin. # acute hypoxic respiratory failure 2/2 community-acquired pneumonia O2 sat dropped to mid 80s last night CXR repeated after dialysis today showing left lower lobe infiltrate Blood culture sent Start IV antibiotic of azithromycin and ceftriaxone Wean down oxygen as tolerated # Hyperkalemia Resolved, follow BMP # Hyponatremia 130 this morning, should improve with dialysis # Unsteady gait PT recommended home with PT # acute on chronic anemia unclear etiology, secondary to ESRD, hematuria, GI loss improved to 10.1 after 2 units transfusion stool occult blood negative has dark urine with 3+ microscopic hematuria on UA without gross hematuria, noted previously GI consult pending PO PPI follow CBC # Elevated troponin EKG showing normal sinus rhythm with new T-wave inversions in V4-6 Cardiology input appreciated, DC aspirin and keep on Eliquis only keep on Tele # UTI UA with 3+ leuks, 3+ blood, 4+ bacteria Klebsiella growing in urine cultures IV ceftriaxone #ESRD HD TTS Follow BMP Nephrology following #HFrEF Not in exacerbation Continue bumex cardiac diet strict I&O # cholelithiasis CT abdomen/pelvis showing cholelithiasis with gallbladder wall thickening and irregular contour with possible acute cholecystitis.? U/S recommended denies abd pain LFTs normal U/S abdomen showing GBS and wall thickening which is not specific, less likely cholecystitis with no pain or other symptoms #CAD/ischemic cardiomyopathy- no anginal cp COntinue statin DC ASA # insulin-dependent type 2 diabetes POC glucose diabetic diet Humalog SSI & Lantus # paroxysmal atrial fibrillation-rate controlled restart Eliquis due to question of bleed continue carvedilol and amiodarone # hyponatremia resolved # depression continue fluoxetine Full code DVT prophylaxis Eliquis Patient requires inpatient stay of overnights due to acute hypoxic respiratory failure secondary to pneumonia on IV antibiotic to prevent possible decompensation to sepsis Quality Stroke Does the patient have a stroke diagnosis?: No VTE Prior VTE?: No VTE Risk Level:: Medical - moderate - high VTE Device Contraindication: N/A - Device Ordered VTE Drug Contraindication: Treatment Not Indicated
[2022-05-04] MEDS: cefTRIAXone sodium 1 GM in 0.9 % Sodium Chloride 50 ML IV (14:47)
[2022-05-04] MEDS: Azithromycin 500 MG in 0.9 % Sodium Chloride 250 ML 125 MG IV (15:31)
[2022-05-04 16:00] VITALS: BP 112/57; PULSE 64; RESP 16; TEMP 37.2; O2SAT 89
[2022-05-04] MEDS: Bumetanide 1 MG/4 ML VIAL IVPUSH (17:22)
[2022-05-04 17:33] LABS: Glucose, Whole Blood 203 mg/dL (60-115)
[2022-05-04 19:29] VITALS: BP 134/65; PULSE 61; RESP 16; TEMP 36.8; O2SAT 92
[2022-05-04 20:06] LABS: Glucose, Whole Blood 189 mg/dL (60-115)
[2022-05-04] MEDS: Atorvastatin Calcium 80 MG TABLET PO (20:15)
[2022-05-04] MEDS: Insulin Lispro 100 UNIT/ML 3 ML VIAL SUBCUT (20:15)
[2022-05-04 23:18] VITALS: BP 149/78; PULSE 60; RESP 18; TEMP 37; O2SAT 92
[2022-05-05 03:26] VITALS: BP 140/81; PULSE 84; RESP 18; TEMP 36.8; O2SAT 99
[2022-05-05] MEDS: Omeprazole 40 MG CAPSULE.DR PO ×2 (06:16→16:53)
[2022-05-05 07:04] VITALS: BP 146/78; PULSE 60; RESP 18; TEMP 36.3; O2SAT 95
[2022-05-05 07:21] LABS: Glucose, Whole Blood 100 mg/dL (60-115)
[2022-05-05 07:32] LABS: MANUAL DIFF FLAG NO
[2022-05-05 07:39] LABS: Basophils Percent Auto 0.3 % (0-2); Eosinophils Absolute Auto 0.1 X10*3/uL (0.0-0.4); Eosinophils Percent Auto 0.8 % (0-4); Hematocrit 32.9 % (42.0-52.0); Hemoglobin 10.8 g/dl (14.0-18.0); Imm Gran Abs Auto 0.09 X10*3/uL (0.00-0.03); Imm Gran Pct Auto 0.8 % (0.0-0.4); Lymphocytes Absolute Auto 1.8 X10*3/uL (1.2-4.9); Lymphocytes Percent Auto 15.9 % (20-40); Mean Corpuscular HGB Conc 32.8 g/dl (31.0-36.0); Mean Corpuscular Hemoglobin 28.1 pg (27.0-33.0); Mean Corpuscular Volume 85.7 fL (80.0-98.0); Mean Platelet Volume 8.6 fL (9.4-12.4); Monocytes Absolute Auto 0.7 X10*3/uL (0.1-1.2); Monocytes Percent Auto 5.9 % (2-11); Neutrophils Absolute Auto 8.5 x10*3/uL (2.0-8.3); Neutrophils Percent Auto 76.3 % (45-73); Platelet Count 202 X10*3/uL (160-400); Red Blood Count 3.84 X10*6/uL (4.60-5.80); Red Cell Distribution Width 15.4 % (11.0-16.0); White Blood Count 11.1 X10*3/uL (4.8-10.8)
[2022-05-05 08:26] LABS: Anion Gap 18 (12-20); Blood Urea Nitrogen 31 mg/dL (9-16); Calcium 8.4 mg/dL (8.4-10.2); Carbon Dioxide 20 mmol/L (22-29); Chloride 98 mmol/L (96-108); Creatinine Clr Calc Pharmacy 13.8; Estimated Glomerular Filt Rate 14; Glucose Random 98 mg/dL (60-115); Magnesium 1.7 mg/dL (1.6-2.6); Potassium 4.5 mmol/L (3.3-5.1); Sodium 131 mmol/L (135-145)
[2022-05-05] MEDS: Bumetanide 1 MG/4 ML VIAL IVPUSH (08:29)
[2022-05-05] MEDS: Cholecalciferol (Vitamin D3) 25 MCG TABLET 50 MCG PO (08:29)
[2022-05-05] MEDS: FLUoxetine HCl 20 MG CAPSULE PO (08:29)
[2022-05-05] MEDS: Amiodarone HCL 200 MG TABLET PO (08:30)
[2022-05-05] MEDS: Magnesium Oxide 400 MG TABLET PO (08:30)
[2022-05-05] MEDS: Apixaban 5 MG TABLET PO ×2 (08:30→20:30)
[2022-05-05] MEDS: carvediloL 3.125 MG TABLET PO ×2 (08:30→20:30)
[2022-05-05] MEDS: 0.9 % Sodium Chloride Flush 3 ML SYRINGE IVFLUSH ×2 (08:30→14:37)
[2022-05-05] MEDS: Insulin Glargine,Hum.rec.anlog 100 UNIT/ML 10 ML VIAL 11 UNIT SUBCUT (08:30)
--- NOTE | 2022-05-05 11:03 | PM.PNNEP ---
Subjective Subjective Date of Service: 05/05/22 Principal diagnosis: ESRD Interval history: Events noted; All recent data reviewed; Due HD tomorrow Physical Exam Vital Signs: Vital Signs: Last Vital Signs Temp 97.4 F 05/05/22 07:04 Pulse 60 05/05/22 07:04 Resp 18 05/05/22 07:04 BP 146/78 H 05/05/22 07:04 Pulse Ox 95 05/05/22 07:04 O2 Del Method 05/05/22 07:04 O2 Flow Rate 2 05/04/22 12:26 BMI result Body Mass Index 29.7 Const: General: no acute distress Eyes: EOM: EOMs intact bilaterally Neck: Neck: Yes supple Resp: Auscultation: diminished lung sounds Cardio: Rate: regular rate GI: Palpation (GI): Soft to palpation Neuro: General: moves all extremities Objective Data Labs CBC & Chem 7: 05/05/22 06:35 05/05/22 06:35 Labs: Laboratory Results - last 24 hr 05/04/22 05/04/22 05/04/22 12:28 16:53 19:33 WBC RBC Hgb Hct MCV MCH MCHC RDW Plt Count MPV Immature Gran % (Auto) Neut % (Auto) Lymph % (Auto) [place] % (Auto) Eos % (Auto) Baso % (Auto) Lymph # (Auto) [place] # (Auto) Eos # (Auto) Baso # (Auto) Abs Immat Gran (auto) Absolute Neuts (auto) Absolute Nucleated RBC Nucleated RBC % (auto) Sodium Potassium Chloride Carbon Dioxide Anion Gap BUN Creatinine Estim Creat Clear Calc Estimated GFR POC Glucose 92 203 H 189 H Random Glucose Calcium Magnesium 05/05/22 05/05/22 05/05/22 06:35 06:35 07:07 WBC 11.1 H RBC 3.84 L Hgb 10.8 L Hct 32.9 L MCV 85.7 MCH 28.1 MCHC 32.8 RDW 15.4 Plt Count 202 MPV 8.6 L Immature Gran % (Auto) 0.8 H Neut % (Auto) 76.3 H Lymph % (Auto) 15.9 L [place] % (Auto) 5.9 Eos % (Auto) 0.8 Baso % (Auto) 0.3 Lymph # (Auto) 1.8 [place] # (Auto) 0.7 Eos # (Auto) 0.1 Baso # (Auto) 0.0 Abs Immat Gran (auto) 0.09 H Absolute Neuts (auto) 8.5 H Absolute Nucleated RBC 0.000 Nucleated RBC % (auto) 0.0 Sodium 131 L Potassium 4.5 Chloride 98 Carbon Dioxide 20 L Anion Gap 18 BUN 31 H Creatinine 4.26 H* Estim Creat Clear Calc 13.8 Estimated GFR 14 POC Glucose 100 Random Glucose 98 Calcium 8.4 Magnesium 1.7 Microbiology Microbiology Results: Microbiology 05/01/22 11:45 Blood - Venous Blood Culture - Preliminary No growth after 48 hours. 05/01/22 11:41 Blood - Venous Blood Culture - Preliminary No growth after 48 hours. 05/01/22 13:08 Urine Catheterized - Straight Catheter Urine Culture - Final Klebsiella pneumoniae Procedures Date of Service Date of Service: 05/05/22 Assessment & Plan Assessment and plan (1) ESRD (end stage renal disease) on dialysis: Status: Acute Assessment and Plan: End Stage Renal Disease Usually gets HD on TTS; Due HD tomorrow Continued volume optimization on HD Renal Diet; Phos binders with meals Continue rest of current management Shall arrange HD follow up in outpatient HD unit when D/Sandeep Time Spent With Patient Time: Total time spent is greater than 50% in coordination of care (as documented) at patient's floor/unit and/or counseling patient: Progress Note: Quality Stroke Does the patient have a stroke diagnosis?: No
[2022-05-05 11:07] VITALS: BP 151/79; PULSE 60; RESP 18; TEMP 36.6; O2SAT 98
[2022-05-05 11:27] LABS: Glucose, Whole Blood 139 mg/dL (60-115)
[2022-05-05] MEDS: cefTRIAXone sodium 1 GM in 0.9 % Sodium Chloride 50 ML IV (12:40)
[2022-05-05 14:19] VITALS: BP 151/79; PULSE 60; O2SAT 98
[2022-05-05] MEDS: Azithromycin 500 MG in 0.9 % Sodium Chloride 250 ML 125 MG IV (14:36)
--- NOTE | 2022-05-05 14:56 | P.PNIM_ITS ---
Subjective Subjective Date of Service: 05/05/22 Interval History: cc: sob interval history:improving Cardiovascular Cardiovascular: Reports no additional cardiovascular complaints Respiratory Respiratory: Reports no additional respiratory complaints Physical Exam Vital Signs: Vital Signs: Last Vital Signs Temp 97.8 F 05/05/22 11:07 Pulse 60 05/05/22 14:19 Resp 18 05/05/22 11:07 BP 151/79 H 05/05/22 14:19 Pulse Ox 98 05/05/22 14:19 O2 Del Method 05/05/22 11:07 O2 Flow Rate 2 05/04/22 12:26 BMI result Body Mass Index 29.7 General: AO X 3, no acute distress Resp: CTA bilateral, no accessory muscles used CVS: S1,S2,RRR GI: soft, non tender, non distended Neuro: motor grossly intact, alert Psych: appropriate affect, appropriate insight Objective Data Active Medications Acetaminophen (Acetaminophen 325 Mg Tablet) 650 mg PO Q6H PRN PRN Reason: Pain, Mild, fever Amiodarone HCl (Amiodarone Hcl 200 Mg Tablet) 200 mg PO DAILY [facility] Last Admin: 05/05/22 08:30 Dose: 200 mg Documented By: UYRI Apixaban (Apixaban 5 Mg Tablet) 5 mg PO BID [facility] Last Admin: 05/05/22 08:30 Dose: 5 mg Documented By: YURI Atorvastatin Calcium (Atorvastatin Calcium 80 Mg Tablet) 80 mg PO BEDTIME [facility] Last Admin: 05/04/22 20:15 Dose: 80 mg Documented By: MIMI Bumetanide (Bumetanide 1 Mg/4 Ml Vial) 1 mg IVPUSH BID@0900,1700 [facility]; Protocol Last Admin: 05/05/22 08:29 Dose: 1 mg Documented By: YURI Carvedilol (Carvedilol 3.125 Mg Tablet) 3.125 mg PO BID [facility]; Protocol Last Admin: 05/05/22 08:30 Dose: 3.125 mg Documented By: YURI Dextrose (Dextrose 50 % 25 Gm/50 Ml Syringe) 25 gm IVPUSH Q15M PRN; Protocol PRN Reason: per Hypoglycemia Standing Ord. Docusate Sodium (Docusate Sodium 100 Mg Capsule) 100 mg PO DAILY PRN PRN Reason: Constipation Fluoxetine HCl (Fluoxetine Hcl 20 Mg Capsule) 20 mg PO DAILY [facility] Last Admin: 05/05/22 08:29 Dose: 20 mg Documented By: YURI Glucose (Glucose Gel 15 Gm Gel..Gram.) 15 gm PO Q15M PRN; Protocol PRN Reason: per Hypoglycemia Standing Ord. Ceftriaxone Sodium 1 gm/ (Sodium Chloride) 50 mls @ 100 mls/hr IV Q24H [facility] Last Infusion: 05/05/22 13:33 Dose: 0 mls/hr Documented By: YURI Azithromycin 500 mg/ Sodium (Chloride) 250 mls @ 125 mls/hr IV Q24H [facility] Last Admin: 05/05/22 14:36 Dose: 125 mls/hr Documented By: YURI Insulin Glargine (Insulin Glargine,Hum.Rec.Anlog 100 Unit/Ml 10 Ml Vial) 11 unit SUBCUT DAILY [facility] Last Admin: 05/05/22 08:30 Dose: 11 unit Documented By: YURI Insulin Human Lispro (Insulin Lispro 100 Unit/Ml 3 Ml Vial) 0 unit SUBCUT QIDACHS [facility]; Protocol Last Admin: 05/05/22 11:40 Dose: Not Given Documented By: YURI Non-Admin Reason: No Insulin Coverage Magnesium Oxide (Magnesium Oxide 400 Mg Tablet) 400 mg PO DAILY [facility] Last Admin: 05/05/22 08:30 Dose: 400 mg Documented By: YURI Omeprazole (Omeprazole 40 Mg Capsule.) 40 mg PO BID@0630,1630 [facility] Last Admin: 05/05/22 06:16 Dose: 40 mg Documented By: MIMI Pharmacy Consult (Consult Rx Perform Med Rec) 1 each MISCELLANE ONCE PRN PRN Reason: Consult order Sodium Chloride (0.9 % Sodium Chloride Flush 3 Ml Syringe) 3 ml IVFLUSH QSHIFT [facility] Last Admin: 05/05/22 14:37 Dose: 3 ml Documented By: YURI Vitamin D (Cholecalciferol (Vitamin D3) 25 Mcg Tablet) 50 mcg PO DAILY [facility] Last Admin: 05/05/22 08:29 Dose: 50 mcg Documented By: UYRI Labs CBC & Chem 7: 05/05/22 06:35 05/05/22 06:35 Labs: Laboratory Results - last 24 hr 05/04/22 05/04/22 05/05/22 16:53 19:33 06:35 MCV 85.7 MCH 28.1 MCHC 32.8 RDW 15.4 Plt Count 202 MPV 8.6 L Immature Gran % (Auto) 0.8 H Neut % (Auto) 76.3 H Lymph % (Auto) 15.9 L [place] % (Auto) 5.9 Eos % (Auto) 0.8 Baso % (Auto) 0.3 Lymph # (Auto) 1.8 [place] # (Auto) 0.7 Eos # (Auto) 0.1 Baso # (Auto) 0.0 Abs Immat Gran (auto) 0.09 H Absolute Neuts (auto) 8.5 H Absolute Nucleated RBC 0.000 Nucleated RBC % (auto) 0.0 Anion Gap Estim Creat Clear Calc Estimated GFR POC Glucose 203 H 189 H Random Glucose Calcium Magnesium 05/05/22 05/05/22 05/05/22 06:35 07:07 11:11 MCV MCH MCHC RDW Plt Count MPV Immature Gran % (Auto) Neut % (Auto) Lymph % (Auto) [place] % (Auto) Eos % (Auto) Baso % (Auto) Lymph # (Auto) [place] # (Auto) Eos # (Auto) Baso # (Auto) Abs Immat Gran (auto) Absolute Neuts (auto) Absolute Nucleated RBC Nucleated RBC % (auto) Anion Gap 18 Estim Creat Clear Calc 13.8 Estimated GFR 14 POC Glucose 100 139 H Random Glucose 98 Calcium 8.4 Magnesium 1.7 Assessment and Plan (1) Acute respiratory failure with hypoxia: Status: Acute (2) Pneumonia: Status: Acute (3) ESRD (end stage renal disease) on dialysis: Status: Acute (4) Acute on chronic anemia: Status: Acute Plan 67-year-old male with past medical history of CAD with ischemic cardiomyopathy, HFrEF, ESRD on dialysis T/Th/Sat (compliant), HTN, PAF on eliquis, insulin dependent type 2 diabetes admitted for acute UTI, acute on chronic anemia, and elevated troponin. acute hypoxic respiratory failure 2/2 community-acquired pneumonia CXR repeated after dialysis 05/04/22 showing left lower lobe infiltrate continue azithromycin and ceftriaxone now off o2 Hyperkalemia Resolved Hyponatremia 131 this AM Unsteady gait PT recommended home with PT acute on chronic anemia multifactorial secondary to ESRD, hematuria, GI loss improved and stable to about 10 after 2 units prbc stool occult blood negative has dark urine with 3+ microscopic hematuria on UA without gross hematuria, noted previously GI consult appreciated risks of endoscopy likely outweigh potential benefits, will hol doff for now PO PPI Elevated troponin EKG showing normal sinus rhythm with new T-wave inversions in V4-6 Cardiology input appreciated, DCed aspirin and keep on Eliquis only keep on Tele UTI UA with 3+ leuks, 3+ blood, 4+ bacteria Klebsiella growing in urine cultures IV ceftriaxone ESRD HD TTS Follow BMP Nephrology following HFrEF Not in exacerbation Continue bumex - changed back to po cardiac diet strict I&O cholelithiasis CT abdomen/pelvis showing cholelithiasis with gallbladder wall thickening and irregular contour with possible acute cholecystitis.? U/S recommended denies abd pain LFTs normal U/S abdomen showing GBS and wall thickening which is not specific, less likely cholecystitis with no pain or other symptoms CAD/ischemic cardiomyopathy- no anginal cp COntinue statin eliquis asa dced insulin-dependent type 2 diabetes POC glucose diabetic diet Humalog SSI & Lantus paroxysmal atrial fibrillation-rate controlled eliquis continue carvedilol and amiodarone depression continue fluoxetine Full code DVT prophylaxis Eliquis reason for continued hospitalization:was only weaned off o2 today, at high risk for decompensation, would continue iv abx under close monitoring atleast another 24hrs to ensure resolution. Quality Stroke Does the patient have a stroke diagnosis?: No VTE Prior VTE?: No VTE Risk Level:: Medical - moderate - high VTE Device Contraindication: N/A - Device Ordered VTE Drug Contraindication: Treatment Not Indicated
[2022-05-05 15:36] VITALS: BP 144/67; PULSE 60; RESP 16; TEMP 36.9; O2SAT 95
[2022-05-05 16:34] LABS: Glucose, Whole Blood 272 mg/dL (60-115)
[2022-05-05] MEDS: Insulin Lispro 100 UNIT/ML 3 ML VIAL SUBCUT (16:53)
[2022-05-05] MEDS: Bumetanide 1 MG TABLET PO (16:53)
[2022-05-05 19:11] VITALS: BP 155/75; PULSE 61; RESP 16; TEMP 36.3; O2SAT 97
[2022-05-05 20:06] LABS: Glucose, Whole Blood 141 mg/dL (60-115)
[2022-05-05] MEDS: Atorvastatin Calcium 80 MG TABLET PO (20:30)
[2022-05-06] VITALS (8 sets, daily range): BP systolic 125–160; BP diastolic 65–86; PULSE 55–68; RESP 15–18; TEMP 36.1–37.1; O2SAT 91–100
[2022-05-06] MEDS: 0.9 % Sodium Chloride Flush 3 ML SYRINGE IVFLUSH ×3 (00:23→21:49)
[2022-05-06] MEDS: Omeprazole 40 MG CAPSULE.DR PO ×2 (05:59→15:32)
[2022-05-06 06:49] LABS: Hematocrit 31.4 % (42.0-52.0); Hemoglobin 10.5 g/dl (14.0-18.0); Mean Corpuscular HGB Conc 33.4 g/dl (31.0-36.0); Mean Corpuscular Hemoglobin 28.5 pg (27.0-33.0); Mean Corpuscular Volume 85.3 fL (80.0-98.0); Mean Platelet Volume 8.8 fL (9.4-12.4); Platelet Count 201 X10*3/uL (160-400); Red Blood Count 3.68 X10*6/uL (4.60-5.80); Red Cell Distribution Width 15.2 % (11.0-16.0); White Blood Count 11.1 X10*3/uL (4.8-10.8)
[2022-05-06 07:25] LABS: Anion Gap 17 (12-20); Blood Urea Nitrogen 49 mg/dL (9-16); Calcium 8.1 mg/dL (8.4-10.2); Carbon Dioxide 18 mmol/L (22-29); Chloride 100 mmol/L (96-108); Estimated Glomerular Filt Rate 12; Glucose Fasting 136 mg/dL (60-99); Potassium 4.8 mmol/L (3.3-5.1); Sodium 130 mmol/L (135-145)
[2022-05-06 07:35] LABS: Glucose, Whole Blood 127 mg/dL (60-115)
--- NOTE | 2022-05-06 09:38 | PC.NURSE ---
Report received from overnight RN. assessment completed for morning rounds, pt into dialysis treatment. morning medications held for treatment.
--- NOTE | 2022-05-06 10:58 | PM.PNNEP ---
Subjective Subjective Date of Service: 05/06/22 Principal diagnosis: ESRD Interval history: Currently on HD. Hemodynamics stable on HD Physical Exam Vital Signs: Vital Signs: Last Vital Signs Temp 97.8 F 05/06/22 07:22 Pulse 61 05/06/22 07:22 Resp 18 05/06/22 07:22 BP 150/76 H 05/06/22 07:22 Pulse Ox 95 05/06/22 07:22 O2 Del Method 05/06/22 07:22 O2 Flow Rate 2 05/04/22 12:26 BMI result Body Mass Index 29.7 Const: General: no acute distress Orientation/consciousness: patient oriented x3 Eyes: EOM: EOMs intact bilaterally Neck: Neck: Yes supple Resp: Auscultation: diminished lung sounds Cardio: Rate: regular rate GI: Palpation (GI): Soft to palpation Neuro: General: patient oriented x3 and moves all extremities Objective Data Labs CBC & Chem 7: 05/06/22 06:39 05/06/22 06:39 Labs: Laboratory Results - last 24 hr 05/05/22 05/05/22 05/05/22 11:11 16:01 19:14 WBC RBC Hgb Hct MCV MCH MCHC RDW Plt Count MPV Absolute Nucleated RBC Nucleated RBC % (auto) Sodium Potassium Chloride Carbon Dioxide Anion Gap BUN Creatinine Estim Creat Clear Calc Estimated GFR POC Glucose 139 H 272 H 141 H Fasting Glucose Calcium 05/06/22 05/06/22 05/06/22 06:39 06:39 07:24 WBC 11.1 H RBC 3.68 L Hgb 10.5 L Hct 31.4 L MCV 85.3 MCH 28.5 MCHC 33.4 RDW 15.2 Plt Count 201 MPV 8.8 L Absolute Nucleated RBC 0.000 Nucleated RBC % (auto) 0.0 Sodium 130 L Potassium 4.8 Chloride 100 Carbon Dioxide 18 L Anion Gap 17 BUN 49 H D Creatinine 4.91 H* Estim Creat Clear Calc 12.0 Estimated GFR 12 POC Glucose 127 H Fasting Glucose 136 H Calcium 8.1 L Microbiology Microbiology Results: Microbiology 05/04/22 14:54 Blood - Subclavian Blood Culture - Preliminary No growth after 24 hours. 05/04/22 14:54 Blood - Subclavian Blood Culture - Preliminary No growth after 24 hours. 05/01/22 11:45 Blood - Venous Blood Culture - Preliminary No growth after 48 hours. 05/01/22 11:41 Blood - Venous Blood Culture - Preliminary No growth after 48 hours. 05/01/22 13:08 Urine Catheterized - Straight Catheter Urine Culture - Final Klebsiella pneumoniae Procedures Date of Service Date of Service: 05/06/22 Assessment & Plan Assessment and plan (1) ESRD (end stage renal disease) on dialysis: Status: Acute Assessment and Plan: End Stage Renal Disease Usually gets HD on TTS; On HD now Continued volume optimization on HD Renal Diet; Phos binders with meals Continue rest of current management Shall arrange HD follow up in outpatient HD unit when D/Sandeep Time Spent With Patient Time: Total time spent is greater than 50% in coordination of care (as documented) at patient's floor/unit and/or counseling patient: Progress Note: Quality Stroke Does the patient have a stroke diagnosis?: No
--- NOTE | 2022-05-06 11:19 | PM.DS ---
DS: Providers Provider Date of Service: 05/06/22 Date of admission: 05/01/22 15:30 Primary care physician: Unknown Physician Consults: 05/01/22 12:59 Consult to Cardiology Stat Consulting Provider: Wenceslao Segura Reason for consultation: NSTEMI Consult to Nephrology Stat Consulting Provider: Rick Schmitt Reason for consultation: ESD on HD, missed todays session 05/01/22 15:37 Consult to Gastroenterology Routine Consulting Provider: Ana Cristina Casarez Reason for consultation: acute anemia 05/01/22 16:03 Consult to Cardiology Routine Consulting Provider: Wenceslao Segura Reason for consultation: elevated trop DS: Diagnosis Discharge Diagnosis (1) ESRD (end stage renal disease) on dialysis: Status: Acute DS: Summary Hospital Course Hospital Course: Admission note HPI 67-year-old male with past medical history of CAD with ischemic cardiomyopathy, HFrEF, ESRD on dialysis T/Th/Sat (compliant), HTN, P AF on eliquis, insulin dependent type 2 diabetes presented to the ED this morning feeling generally unwell with generalized weakness and dark ?black? urine for the last 3 days.? As a result he did not go to hemodialysis today but states otherwise he is compliant with this and came to the ER instead.? There has also been some dysuria and suprapubic discomfort.? Despite being a dialysis patient he does urinate several times daily and is occasionally incontinent wearing briefs.? He denies any maggi blood in the urine and is adamant that it was not stool.? Last bowel movement was yesterday it was brown diarrhea.? He denies any melena or hematochezia.? He denies any fevers or chills, nausea, vomiting, shortness of breath, palpitations, lightheadedness, or chest pain.? On EMS arrival patient was found to be hypoxic around 85% was placed on 2 L nasal cannula.? On arrival to the ER, patient continued nasal cannula at 2 L with oximetry of 96%.? Vital signs stable.? WBC 11.1.? Significant drop in H/H 7.8/23.7% (was 12.7/37.9% 1 month ago).? Denies any source of bleeding.? Creatinine 5.39, BUN 34, sodium 129, chloride 95, CO2 20, potassium 4.6.? Glucose 135.? Magnesium 1.5.? Lactic acid 1.5.? BNP 1869.? Initial trope 709.4.? EKG showing NSR, rate 62 with T-wave inversions V4-6, no IRIS.? CXR negative.? CT abdomen/pelvis showing cholelithiasis with gallbladder wall thickening and irregular contour.? Recommend ultrasound to rule out acute cholecystitis.? Interval development of bilateral small pleural effusions, left greater than right.? UA showing 3+ protein, 3+ blood, 3+ leuks, nitrate negative, 4+ bacteria.? Nursing staff did straight cath the patient revealing cloudy yellow urine, no gross hematuria.? Urine culture and blood cultures pending.? Case discussed with cardiology with question of NSTEMI.? Given question of blood-loss anemia, heparin deferred.? Patient to be transfused 2 units packed red blood cells.? Given 40 mg IV Protonix and 1 g ceftriaxone.? Seen by Nephrology with HD scheduled for later today. Hospital course Patient was admitted for acute hypoxic respiratory failure secondary to community-acquired pneumonia And acute on chronic systolic CHF. He was treated with ceftriaxone azithromycin and will be discharged on cefuroxime. he was also given IV diuresis and hemodialysis. His shortness of breath improved and was able to be weaned off oxygen. Patient also had hyperkalemia which resolved with hemodialysis. He had mild hyponatremia. He was also noted to have acute on chronic anemia, likely multifactorial due to end-stage renal disease, hematuria. Hemoglobin improved and remained stable at about 10 after 2 units packed red blood cells. He was seen by GI who felt risks of endoscopy await any benefits and recommended to hold off. Patient was noted to have elevated troponin, seen by Cardiology recommended discontinue aspirin and given Eliquis only. Patient had positive UA with Klebsiella in the urine, possible UTI, was treated with IV ceftriaxone. For his end-stage renal disease his continue on dialysis. For his coronary disease is continue on statin Eliquis. For diabetes was continued on insulin. For paroxysmal atrial fibrillation he was continue on Eliquis, Coreg, amiodarone. For depression he was continued on fluoxetine. Patient is doing much better. Time Spent with Patient Time attestation: Total time spent providing and/or coordinating discharge services: Discharge coordination time: Greater than 30 minutes Quality: Safe Use of Opioids Does Pt have an Active Cancer Diagnosis on the Problem List?: No Quality: Stroke Does the patient have a stroke diagnosis?: No Physical Exam Vital Signs: Vital Signs: Last Vital Signs Temp 97.8 F 05/06/22 07:22 Pulse 61 05/06/22 07:22 Resp 18 05/06/22 07:22 BP 150/76 H 05/06/22 07:22 Pulse Ox 95 05/06/22 07:22 O2 Del Method 05/06/22 07:22 O2 Flow Rate 2 05/04/22 12:26 BMI result Body Mass Index 29.7 General: AO X 3, no acute distress Resp: CTA bilateral, no accessory muscles used CVS: S1,S2,RRR GI: soft, non tender, non distended Neuro: motor grossly intact, alert Psych: appropriate affect, appropriate insight DS: Data Data Completed and Pending Completed studies during hospitalization [Text1]: Procedures Performance of Urinary Filtration, Intermittent, Less than 6 Hours Per Day (02/20/22) Transfusion of Nonautologous Red Blood Cells into Peripheral Vein, Percutaneous Approach (02/20/22) Labs on day of discharge: Laboratory Results - last 24 hr 05/05/22 05/05/22 05/05/22 11:11 16:01 19:14 WBC RBC Hgb Hct MCV MCH MCHC RDW Plt Count MPV Absolute Nucleated RBC Nucleated RBC % (auto) Sodium Potassium Chloride Carbon Dioxide Anion Gap BUN Creatinine Estim Creat Clear Calc Estimated GFR POC Glucose 139 H 272 H 141 H Fasting Glucose Calcium 05/06/22 05/06/22 05/06/22 06:39 06:39 07:24 WBC 11.1 H RBC 3.68 L Hgb 10.5 L Hct 31.4 L MCV 85.3 MCH 28.5 MCHC 33.4 RDW 15.2 Plt Count 201 MPV 8.8 L Absolute Nucleated RBC 0.000 Nucleated RBC % (auto) 0.0 Sodium 130 L Potassium 4.8 Chloride 100 Carbon Dioxide 18 L Anion Gap 17 BUN 49 H D Creatinine 4.91 H* Estim Creat Clear Calc 12.0 Estimated GFR 12 POC Glucose 127 H Fasting Glucose 136 H Calcium 8.1 L Preliminary micro results at discharge 05/04/22 14:54 Blood Culture - Preliminary Blood - Subclavian No growth after 24 hours. 05/04/22 14:54 Blood Culture - Preliminary Blood - Subclavian No growth after 24 hours. 05/01/22 11:45 Blood Culture - Preliminary Blood - Venous No growth after 48 hours. 05/01/22 11:41 Blood Culture - Preliminary Blood - Venous No growth after 48 hours. Discharge Plan Discharge Anticipated Discharge Date/Time: 05/03/22 11:33 Patient Disposition: Home Health Service Discharge Diagnosis: Urinary tract infection Acute on chronic anemia Referrals: Physician,Unknown J [Primary Care Provider] - 1 Week Discharge Medications: New omeprazole 40 mg Capsule,Delayed Release(Dr/Ec) 40 mg PO DAILY Qty: 30 0RF cefuroxime axetil 250 mg tablet 250 mg PO BID Qty: 10 0RF Continued atorvastatin 80 mg tablet 80 mg PO BEDTIME Qty: 90 1RF Rx Instructions: Please call Dr. Abarca's office to schedule follow up appointment in order to continue refills; [phone]. prochlorperazine maleate [Compazine] 5 mg tablet 5 mg PO TID PRN (Reason: nausea and vomiting) Qty: 10 0RF amiodarone 200 mg tablet 1 tab PO DAILY carvedilol 3.125 mg tablet 1 tab PO BID bumetanide 1 mg tablet 1 tab PO BID insulin aspart U-100 [Novolog Flexpen U-100 Insulin] 100 unit/mL (3 mL) insulin pen See Protocol subcut [facility] Protocol: Insulin Correction Scale Less than or equal to 110 ---- Give (units): 0 111 to 150 Give (units): 0 151 to 200 Give (units): 2 201 to 250 Give (units): 4 251 to 300 Give (units): 6 301 to 350 Give (units): 8 Greater than 350 Give (units): 10 Call if Blood Glucose > : 350 insulin glargine [Lantus Solostar U-100 Insulin] 100 unit/mL (3 mL) insulin pen 15 unit subcut DAILY cholecalciferol (vitamin D3) 50 mcg (2,000 unit) tablet 1 tab PO DAILY Eliquis 5 mg tablet 1 tab PO BID fluoxetine 20 mg capsule 1 cap PO DAILY Discontinued aspirin 81 mg tablet,delayed release (DR/EC) 1 tab PO DAILY Discharge Orders: Discharge Order (Routine); Ordered 05/06/22 Ordered By: Sung Vora Diet: Advance to usual diet Activity on Discharge: As tolerated Stand Alone Forms: Patient Portal Discharge page Care Plan Goals: Read below Health Concerns: Read below Plan of Treatment: Read below Assessment: You presented to the hospital complaining of dark urine and generalized weakness. Found to have evidence of urine infection with associated low blood level. Received 2 units of blood as you were evaluated by executive administrative asst who recommended to hold on any procedure at this point as no evidence of bleeding noted. Urine infection treated with IV antibiotics with good response as the culture grew bacteria called a Klebsiella pneumonia sensitive to antibiotics. Evaluated by demo event specialist who recommended to discontinue aspirin and keep you on Eliquis only with no evidence of heart attack. Had dialysis session inpatient as you were followed by nephrology team. Continue Ceftin for 5 more days Continue dialysis as outpatient Discontinue aspirin Start omeprazole daily To follow-up with Nephrology at dialysis center and repeat blood work. Please come back to the hospital for any bleeding with urine or stool or increased weakness.
[2022-05-06 11:32] LABS: Glucose, Whole Blood 147 mg/dL (60-115)
--- NOTE | 2022-05-06 11:50 | MHC.CM.PN ---
Patient has been medically cleared for dc to home today with home PT. Per Selene @ [facility] @ [phone], [facility] will provide home PT. IMM Addressed with Patient at bedside, while in HD and the original was given to him and a copy has been placed on the chart.
[2022-05-06] MEDS: Cholecalciferol (Vitamin D3) 25 MCG TABLET 50 MCG PO (13:26)
[2022-05-06] MEDS: FLUoxetine HCl 20 MG CAPSULE PO (13:27)
[2022-05-06] MEDS: guaiFENesin 200 MG/10 ML 10 ML LIQUID PO ×2 (13:27→18:26)
[2022-05-06] MEDS: Magnesium Oxide 400 MG TABLET PO (13:27)
[2022-05-06] MEDS: Apixaban 5 MG TABLET PO ×2 (13:27→21:48)
[2022-05-06] MEDS: Bumetanide 1 MG TABLET PO ×2 (13:27→18:17)
[2022-05-06] MEDS: cefTRIAXone sodium 1 GM in 0.9 % Sodium Chloride 50 ML IV (13:30)
--- NOTE | 2022-05-06 14:53 | P.PNIM_ITS ---
Subjective Subjective Date of Service: 05/06/22 Interval History: cc: sob interval history:improving Cardiovascular Cardiovascular: Reports no additional cardiovascular complaints Respiratory Respiratory: Reports no additional respiratory complaints Physical Exam Vital Signs: Vital Signs: Last Vital Signs Temp 97.1 F 05/06/22 11:22 Pulse 55 05/06/22 13:02 Resp 16 05/06/22 13:02 BP 132/65 05/06/22 13:02 Pulse Ox 100 05/06/22 11:22 O2 Del Method 05/06/22 11:22 O2 Flow Rate 2 05/04/22 12:26 BMI result Body Mass Index 29.7 General: AO X 3, no acute distress Resp: CTA bilateral, no accessory muscles used CVS: S1,S2,RRR GI: soft, non tender, non distended Neuro: motor grossly intact, alert Psych: appropriate affect, appropriate insight Objective Data Active Medications Acetaminophen (Acetaminophen 325 Mg Tablet) 650 mg PO Q6H PRN PRN Reason: Pain, Mild, fever Amiodarone HCl (Amiodarone Hcl 200 Mg Tablet) 200 mg PO DAILY [facility] Last Admin: 05/06/22 13:22 Dose: Not Given Documented By: YURI Non-Admin Reason: Decreased Heart Rate Apixaban (Apixaban 5 Mg Tablet) 5 mg PO BID [facility] Last Admin: 05/06/22 13:27 Dose: 5 mg Documented By: YURI Atorvastatin Calcium (Atorvastatin Calcium 80 Mg Tablet) 80 mg PO BEDTIME [facility] Last Admin: 05/05/22 20:30 Dose: 80 mg Documented By: MADELEINE Benzocaine (Throat Lozenge, Medicated Lozenge) 1 lozenge MUCOUS MEM Q2H PRN PRN Reason: Sore Throat Bumetanide (Bumetanide 1 Mg Tablet) 1 mg PO BID@0800,1700 [facility]; Protocol Last Admin: 05/06/22 13:27 Dose: 1 mg Documented By: YURI Carvedilol (Carvedilol 3.125 Mg Tablet) 3.125 mg PO BID [facility]; Protocol Last Admin: 05/06/22 13:05 Dose: Not Given Documented By: YURI Non-Admin Reason: Decreased Heart Rate Dextrose (Dextrose 50 % 25 Gm/50 Ml Syringe) 25 gm IVPUSH Q15M PRN; Protocol PRN Reason: per Hypoglycemia Standing Ord. Docusate Sodium (Docusate Sodium 100 Mg Capsule) 100 mg PO DAILY PRN PRN Reason: Constipation Fluoxetine HCl (Fluoxetine Hcl 20 Mg Capsule) 20 mg PO DAILY [facility] Last Admin: 05/06/22 13:27 Dose: 20 mg Documented By: YURI Glucose (Glucose Gel 15 Gm Gel..Gram.) 15 gm PO Q15M PRN; Protocol PRN Reason: per Hypoglycemia Standing Ord. Guaifenesin (Guaifenesin 200 Mg/10 Ml 10 Ml Liquid) 10 ml PO Q4H PRN PRN Reason: cough Last Admin: 05/06/22 13:27 Dose: 10 ml Documented By: YURI Ceftriaxone Sodium 1 gm/ (Sodium Chloride) 50 mls @ 100 mls/hr IV Q24H [facility] Last Infusion: 05/06/22 14:02 Dose: 0 mls/hr Documented By: YURI Azithromycin 500 mg/ Sodium (Chloride) 250 mls @ 125 mls/hr IV Q24H [facility] Last Infusion: 05/05/22 16:58 Dose: 0 mls/hr Documented By: YURI Insulin Glargine (Insulin Glargine,Hum.Rec.Anlog 100 Unit/Ml 10 Ml Vial) 11 unit SUBCUT DAILY [facility] Last Admin: 05/06/22 13:05 Dose: Not Given Documented By: YURI Non-Admin Reason: Off unit: Dialysis Insulin Human Lispro (Insulin Lispro 100 Unit/Ml 3 Ml Vial) 0 unit SUBCUT QIDACHS [facility]; Protocol Last Admin: 05/06/22 11:38 Dose: Not Given Documented By: YURI Non-Admin Reason: No Insulin Coverage Magnesium Oxide (Magnesium Oxide 400 Mg Tablet) 400 mg PO DAILY [facility] Last Admin: 05/06/22 13:27 Dose: 400 mg Documented By: YURI Omeprazole (Omeprazole 40 Mg Lisset.) 40 mg PO BID@0630,1630 [facility] Last Admin: 05/06/22 05:59 Dose: 40 mg Documented By: CHERELLE Pharmacy Consult (Consult Rx Perform Med Rec) 1 each MISCELLANE ONCE PRN PRN Reason: Consult order Sodium Chloride (0.9 % Sodium Chloride Flush 3 Ml Syringe) 3 ml IVFLUSH QSHIFT [facility] Last Admin: 05/06/22 13:03 Dose: Not Given Documented By: YURI Non-Admin Reason: Off unit: Dialysis Vitamin D (Cholecalciferol (Vitamin D3) 25 Mcg Tablet) 50 mcg PO DAILY [facility] Last Admin: 05/06/22 13:26 Dose: 50 mcg Documented By: YURI Labs CBC & Chem 7: 05/06/22 06:39 05/06/22 06:39 Labs: Laboratory Results - last 24 hr 05/05/22 05/05/22 05/06/22 16:01 19:14 06:39 MCV 85.3 MCH 28.5 MCHC 33.4 RDW 15.2 Plt Count 201 MPV 8.8 L Absolute Nucleated RBC 0.000 Nucleated RBC % (auto) 0.0 Anion Gap Estim Creat Clear Calc Estimated GFR POC Glucose 272 H 141 H Fasting Glucose Calcium 05/06/22 05/06/22 05/06/22 06:39 07:24 11:24 MCV MCH MCHC RDW Plt Count MPV Absolute Nucleated RBC Nucleated RBC % (auto) Anion Gap 17 Estim Creat Clear Calc 12.0 Estimated GFR 12 POC Glucose 127 H 147 H Fasting Glucose 136 H Calcium 8.1 L Microbiology Microbiology Results: Microbiology 05/01/22 11:45 Blood Culture - Final Blood - Venous No growth after 5 days. 05/01/22 11:41 Blood Culture - Final Blood - Venous No growth after 5 days. 05/04/22 14:54 Blood Culture - Preliminary Blood - Subclavian No growth after 24 hours. 05/04/22 14:54 Blood Culture - Preliminary Blood - Subclavian No growth after 24 hours. Assessment and Plan (1) Acute respiratory failure with hypoxia: Status: Acute (2) Pneumonia: Status: Acute (3) ESRD (end stage renal disease) on dialysis: Status: Acute (4) Acute on chronic anemia: Status: Acute Plan 67-year-old male with past medical history of CAD with ischemic cardiomyopathy, HFrEF, ESRD on dialysis T/Th/Sat (compliant), HTN, PAF on eliquis, insulin dependent type 2 diabetes admitted for acute UTI, acute on chronic anemia, and elevated troponin. acute hypoxic respiratory failure 2/2 community-acquired pneumonia CXR repeated after dialysis 05/04/22 showing left lower lobe infiltrate continue azithromycin and ceftriaxone now off o2 Hyperkalemia Resolved Hyponatremia mild Unsteady gait plan for STR at [facility] acute on chronic anemia multifactorial secondary to ESRD, hematuria, GI loss improved and stable to about 10 after 2 units prbc stool occult blood negative has dark urine with 3+ microscopic hematuria on UA without gross hematuria, noted previously GI consult appreciated risks of endoscopy likely outweigh potential benefits, will hol doff for now PO PPI Elevated troponin EKG showing normal sinus rhythm with new T-wave inversions in V4-6 Cardiology input appreciated, DCed aspirin and keep on Eliquis only keep on Tele UTI UA with 3+ leuks, 3+ blood, 4+ bacteria Klebsiella growing in urine cultures IV ceftriaxone ESRD HD TTS Follow [facility] Nephrology following HFrEF Not in exacerbation Continue bumex - changed back to po cardiac diet strict I&O cholelithiasis CT abdomen/pelvis showing cholelithiasis with gallbladder wall thickening and irregular contour with possible acute cholecystitis.? U/S recommended denies abd pain LFTs normal U/S abdomen showing GBS and wall thickening which is not specific, less likely cholecystitis with no pain or other symptoms CAD/ischemic cardiomyopathy- no anginal cp COntinue statin eliquis asa dced insulin-dependent type 2 diabetes POC glucose diabetic diet Humalog SSI & Lantus paroxysmal atrial fibrillation-rate controlled eliquis continue carvedilol and amiodarone depression continue fluoxetine Full code DVT prophylaxis Eliquis reason for continued hospitalization:awaiting snf placement Quality Stroke Does the patient have a stroke diagnosis?: No VTE Prior VTE?: No VTE Risk Level:: Medical - moderate - high VTE Device Contraindication: N/A - Device Ordered VTE Drug Contraindication: Treatment Not Indicated
--- NOTE | 2022-05-06 14:53 | MHC.CM.PN ---
Per RN, Patient is feeling like he cannot go home; PT's recommendation IS for STR. CM has extended a SNF search and will continue to follow for dc planning.
--- NOTE | 2022-05-06 15:21 | MHC.CM.PN ---
Patient has been accepted at his first choice SNF/[facility] (also where he gets his HD); [facility] has requested that [facility] initiate [facility] auth process. CM will follow.
[2022-05-06] MEDS: Azithromycin 500 MG in 0.9 % Sodium Chloride 250 ML 125 MG IV (15:30)
[2022-05-06 15:42] LABS: Glucose, Whole Blood 248 mg/dL (60-115)
[2022-05-06] MEDS: Insulin Lispro 100 UNIT/ML 3 ML VIAL SUBCUT ×2 (16:30→21:47)
--- NOTE | 2022-05-06 17:21 | PC.NURSE ---
report received from overnight RN. Pt to dialysis this morning. Pt to be discharged today, pt lives alone - pt is still weak and unsteady on feet. Physical therapy had reccommended STR. Connected with case management and MD, discharge cancelled today, pt to be discharged to STR tomorrow. facilities administrator per sep, safety precautions taken.
[2022-05-06 20:29] LABS: Glucose, Whole Blood 152 mg/dL (60-115)
[2022-05-06] MEDS: carvediloL 3.125 MG TABLET PO (21:48)
[2022-05-06] MEDS: Atorvastatin Calcium 80 MG TABLET PO (21:48)
[2022-05-07 03:04] VITALS: BP 143/75; PULSE 63; RESP 16; TEMP 36.8; O2SAT 94
[2022-05-07] MEDS: Omeprazole 40 MG CAPSULE.DR PO (05:37)
[2022-05-07 07:23] VITALS: BP 147/70; PULSE 61; RESP 20; TEMP 36.9; O2SAT 97
[2022-05-07 07:38] LABS: Glucose, Whole Blood 108 mg/dL (60-115)
[2022-05-07] MEDS: Bumetanide 1 MG TABLET PO (09:13)
[2022-05-07] MEDS: Insulin Glargine,Hum.rec.anlog 100 UNIT/ML 10 ML VIAL 11 UNIT SUBCUT (09:13)
[2022-05-07] MEDS: Amiodarone HCL 200 MG TABLET PO (09:13)
[2022-05-07] MEDS: Magnesium Oxide 400 MG TABLET PO (09:13)
[2022-05-07] MEDS: Cholecalciferol (Vitamin D3) 25 MCG TABLET 50 MCG PO (09:13)
[2022-05-07] MEDS: 0.9 % Sodium Chloride Flush 3 ML SYRINGE IVFLUSH (09:13)
[2022-05-07] MEDS: carvediloL 3.125 MG TABLET PO (09:13)
[2022-05-07] MEDS: FLUoxetine HCl 20 MG CAPSULE PO (09:14)
[2022-05-07] MEDS: Apixaban 5 MG TABLET PO (09:14)
--- NOTE | 2022-05-07 09:23 | MHC.CM.PN ---
Per MD, Patient will be medically cleared for dc to SNF/STR today. Patient will dc to his first choice SNF/[facility](also where Patient receives his HD) today at 11 AM via [facility]. Last IMM addressed yesterday.CM attempted to inform Patient's Sister/Alysia @ [phone] of the dc plan but it is not possible to leave a message at this #.
--- NOTE | 2022-05-07 09:48 | PM.PNNEP ---
Subjective Subjective Date of Service: 05/07/22 Principal diagnosis: ESRD Interval history: did well on dialysis yesterday Physical Exam Vital Signs: Vital Signs: Last Vital Signs Temp 98.5 F 05/07/22 07:23 Pulse 61 05/07/22 07:23 Resp 20 05/07/22 07:23 BP 147/70 H 05/07/22 07:23 Pulse Ox 97 05/07/22 07:23 O2 Del Method 05/07/22 07:23 O2 Flow Rate 2 05/04/22 12:26 BMI result Body Mass Index 29.7 Const: Other: Constitutional : Alert, oriented, not in distress Neck : Normal inspection, Supple Cardiovascular : RRR, no JVP, no lower extremity edema Respiratory : fair bilateral air entry, basal left lower crackles, no wheezes or rhonchi Gastrointestinal: soft, lax, Normal bowel sounds, Non tender Skin : Warm, Dry, permacath in place w no erythema Neurological : Alert & oriented x3, No focal deficit General: no acute distress and ill appearing Nutritional Appearance: overweight Orientation/consciousness: patient oriented x3 Limitations: language barrier Eyes: EOM: EOMs intact bilaterally Neck: Neck: Yes supple Resp: Auscultation: diminished lung sounds Cardio: Rate: regular rate GI: Palpation (GI): Soft to palpation Neuro: General: patient oriented x3 and moves all extremities Objective Data Labs CBC & Chem 7: 05/06/22 06:39 05/06/22 06:39 Labs: Laboratory Results - last 24 hr 05/06/22 05/06/22 05/06/22 11:24 15:38 20:26 POC Glucose 147 H 248 H 152 H 05/07/22 07:26 POC Glucose 108 Microbiology Microbiology Results: Microbiology 05/04/22 14:54 Blood - Subclavian Blood Culture - Preliminary No growth after 48 hours. 05/04/22 14:54 Blood - Subclavian Blood Culture - Preliminary No growth after 48 hours. 05/01/22 11:45 Blood - Venous Blood Culture - Final No growth after 5 days. 05/01/22 11:41 Blood - Venous Blood Culture - Final No growth after 5 days. 05/01/22 13:08 Urine Catheterized - Straight Catheter Urine Culture - Final Klebsiella pneumoniae Procedures Date of Service Date of Service: 05/07/22 Assessment & Plan Assessment and plan (1) Acute respiratory failure with hypoxia: Status: Acute (2) Pneumonia: Status: Acute (3) ESRD (end stage renal disease) on dialysis: Status: Acute (4) Acute on chronic anemia: Status: Acute Plan 67-year-old male with past medical history of CAD with ischemic cardiomyopathy, HFrEF, ESRD on dialysis T//Sat (compliant), HTN, PAF on eliquis, insulin dependent type 2 diabetes admitted for acute UTI, acute on chronic anemia, and elevated troponin. acute hypoxic respiratory failure 2/2 community-acquired pneumonia CXR repeated after dialysis 05/04/22 showing left lower lobe infiltrate continue azithromycin and ceftriaxone now off o2 Hyperkalemia Resolved Hyponatremia mild Unsteady gait plan for STR at sNf acute on chronic anemia multifactorial secondary to ESRD, hematuria, GI loss improved and stable to about 10 after 2 units prbc stool occult blood negative has dark urine with 3+ microscopic hematuria on UA without gross hematuria, noted previously GI consult appreciated risks of endoscopy likely outweigh potential benefits, will hol doff for now PO PPI Elevated troponin EKG showing normal sinus rhythm with new T-wave inversions in V4-6 Cardiology input appreciated, DCed aspirin and keep on Eliquis only keep on Tele UTI UA with 3+ leuks, 3+ blood, 4+ bacteria Klebsiella growing in urine cultures IV ceftriaxone ESRD HD TTS Follow BMP Nephrology following HFrEF Not in exacerbation Continue bumex - changed back to po cardiac diet strict I&O cholelithiasis CT abdomen/pelvis showing cholelithiasis with gallbladder wall thickening and irregular contour with possible acute cholecystitis.? U/S recommended denies abd pain LFTs normal U/S abdomen showing GBS and wall thickening which is not specific, less likely cholecystitis with no pain or other symptoms CAD/ischemic cardiomyopathy- no anginal cp COntinue statin eliquis asa dced insulin-dependent type 2 diabetes POC glucose diabetic diet Humalog SSI & Lantus paroxysmal atrial fibrillation-rate controlled eliquis continue carvedilol and amiodarone depression continue fluoxetine Full code DVT prophylaxis Eliquis reason for continued hospitalization:awaiting snf placement dialysis tuesday Time Spent With Patient Time: Total time spent is greater than 50% in coordination of care (as documented) at patient's floor/unit and/or counseling patient: Progress Note: Quality Stroke Does the patient have a stroke diagnosis?: No
[2022-05-07 10:34] LABS: COVID-19 Test Negative (Negative); IDNOW Serial# 16C4AD1C
[2022-05-07 10:39] VITALS: BP 147/70; PULSE 61; O2SAT 97
--- NOTE | 2022-05-11 05:48 | MHC.CDI.RETR ---
Documented by User: Bertha Chong CCS, CDIS 05/11/22 05:53 Retrospective Query PHYSICIAN'S DOCUMENTATION REQUEST Date of Query: 05/11/22 0548 Patient Name: Liang Nunez Admit Date: 05/01/22 Dear Doctor, A review of the medical record indicates additional documentation may be needed. Please review below and update the documentation accordingly. Risk Factors/Clinical Indicators/Treatments PN - 05/03, 05/04, 05/06 : HFrEF, not in exacerbation Continue Bumex, cardiac diet, start I&O. Discharge Summary 05/06: Patient was admitted for acute hypoxic respiratory failure 2nd to community acquired pneumonia and acute on chronic systolic Congestive heart failure. Please clarify the documentation of [include the diagnosis]: Acuity of Congestive heart failure: Acute/chronic/acute on chronic: [ ] remains a known or suspected condition for this patient and is further supported by (include additional documentation in the medical record) [ ] has been ruled out and a more appropriate diagnosis for this patient?s condition is Other (please specify) Unable to determine Use of terms such as suspected, likely, concern for, or probable (associated with a specific diagnosis that is being evaluated, monitored, or treated as if it exists) are acceptable and can be coded in the inpatient setting, when documented at the time of discharge. Thank you, Bertha Chong [facility], CDIS Extension: [phone] Please use your independent medical judgment in providing your response. THIS QUERY IS PART OF THE PERMANENT MEDICAL RECORD Documented by User: Sung Vora MD 05/11/22 07:19 Retrospective Query Provider Response: Other (primary cause of resp failure was pneumonia, may have had minor component of acute on chronic systolic chf, after iv diuresis and HD there was no further evidence of fluid overload)
== END 2022-05-07 11:13 | disposition skilled nursing facility (03) | DRG 193 ==
LOC: HO.ED 13:20 → HO.EDOVER 15:38 → HO.IMC 05-02 18:22
PROVIDERS: Internal Medicine; Physician Assistant; Student in an Organized Health Care Education/Training Program; Admitting Provider Physician Assistant; Emergency Provider Emergency Medicine; Visit Provider Internal Medicine
DX: J18.9 Pneumonia, unspecified organism (principal); I50.23 Acute on chronic systolic (congestive) heart failure; N18.6 End stage renal disease; J96.01 Acute respiratory failure with hypoxia; I13.2 Hypertensive heart and chronic kidney disease with heart failure and with stage 5 chronic kidney disease, or end stage renal disease; N39.0 Urinary tract infection, site not specified; K80.00 Calculus of gallbladder with acute cholecystitis without obstruction; D63.1 Anemia in chronic kidney disease; I48.0 Paroxysmal atrial fibrillation; E78.1 Pure hyperglyceridemia; F32.A Depression, unspecified; E87.5 Hyperkalemia; B96.1 Klebsiella pneumoniae [K. pneumoniae] as the cause of diseases classified elsewhere; I25.10 Atherosclerotic heart disease of native coronary artery without angina pectoris; D64.9 Anemia, unspecified; I25.5 Ischemic cardiomyopathy; E11.22 Type 2 diabetes mellitus with diabetic chronic kidney disease; Z20.822 Contact with and (suspected) exposure to COVID-19; Z99.2 Dependence on renal dialysis; Z79.4 Long term (current) use of insulin; Z79.01 Long term (current) use of anticoagulants; Z79.899 Other long term (current) drug therapy
CPT/HCPCS: 36415; 71045; 74176; 76705; 80048; 80076; 81001; 81003; 82272; 82947; 83540; 83605; 83735; 83880; 84484; 85025; 85027; 86850; 86900; 86901; 86923; 87040; 87086; 87088; 87186; 87635; 90935; 90999; 93005; 97116; 97161; 97530; 99285; J0456; J0696; J2405; P9016

== ENCOUNTER 2022-05-12 11:55 | Outpatient (REF) | payer OTHER, SELFPAY ==
[2022-05-12 13:10] LABS: CDiff Gene PCR NEGATIVE (Negative)
== END 2022-05-12 11:56 | disposition home or self-care (01) ==
LOC: HO.MMNH1L 11:55
PROVIDERS: Visit Provider Family Medicine
DX: R19.7 Diarrhea, unspecified (principal)
CPT/HCPCS: 36415; 87493

== ENCOUNTER 2022-05-18 05:40 | Outpatient (REF) | payer OTHER, SELFPAY ==
[2022-05-18 05:43] LABS: MANUAL DIFF FLAG NO
[2022-05-18 05:51] LABS: Basophils Percent Auto 0.2 % (0-2); Eosinophils Absolute Auto 0.1 X10*3/uL (0.0-0.4); Eosinophils Percent Auto 1.4 % (0-4); Hematocrit 26.4 % (42.0-52.0); Hemoglobin 8.9 g/dl (14.0-18.0); Imm Gran Abs Auto 0.04 X10*3/uL (0.00-0.03); Imm Gran Pct Auto 0.5 % (0.0-0.4); Lymphocytes Absolute Auto 2.6 X10*3/uL (1.2-4.9); Lymphocytes Percent Auto 29.3 % (20-40); Mean Corpuscular HGB Conc 33.7 g/dl (31.0-36.0); Mean Corpuscular Hemoglobin 29.1 pg (27.0-33.0); Mean Corpuscular Volume 86.3 fL (80.0-98.0); Mean Platelet Volume 9.4 fL (9.4-12.4); Monocytes Absolute Auto 0.6 X10*3/uL (0.1-1.2); Monocytes Percent Auto 6.8 % (2-11); Neutrophils Absolute Auto 5.4 x10*3/uL (2.0-8.3); Neutrophils Percent Auto 61.8 % (45-73); Platelet Count 235 X10*3/uL (160-400); Red Blood Count 3.06 X10*6/uL (4.60-5.80); Red Cell Distribution Width 15.3 % (11.0-16.0); White Blood Count 8.8 X10*3/uL (4.8-10.8)
[2022-05-18 06:18] LABS: Anion Gap 17 (12-20); Blood Urea Nitrogen 41 mg/dL (9-16); Calcium 8.2 mg/dL (8.4-10.2); Carbon Dioxide 23 mmol/L (22-29); Chloride 93 mmol/L (96-108); Glucose Random 166 mg/dL (60-115); Potassium 4.2 mmol/L (3.3-5.1); Sodium 129 mmol/L (135-145)
[2022-05-18 07:43] LABS: Estimated Glomerular Filt Rate 12
== END 2022-05-18 05:41 | disposition home or self-care (01) ==
LOC: HO.MMNH1L 05:40
PROVIDERS: Visit Provider Family Medicine
DX: N18.6 End stage renal disease (principal); Z99.2 Dependence on renal dialysis
CPT/HCPCS: 36415; 80048; 85025

== ENCOUNTER 2022-05-24 06:28 | Outpatient (REF) | payer OTHER, SELFPAY ==
[2022-05-24 06:24] LABS: MANUAL DIFF FLAG NO
[2022-05-24 06:50] LABS: Basophils Percent Auto 0.3 % (0-2); Eosinophils Absolute Auto 0.1 X10*3/uL (0.0-0.4); Eosinophils Percent Auto 1.6 % (0-4); Hemoglobin 8.6 g/dl (14.0-18.0); Imm Gran Abs Auto 0.05 X10*3/uL (0.00-0.03); Imm Gran Pct Auto 0.6 % (0.0-0.4); Lymphocytes Absolute Auto 2.1 X10*3/uL (1.2-4.9); Lymphocytes Percent Auto 24.7 % (20-40); Mean Corpuscular HGB Conc 33.1 g/dl (31.0-36.0); Mean Corpuscular Hemoglobin 29.3 pg (27.0-33.0); Mean Corpuscular Volume 88.4 fL (80.0-98.0); Mean Platelet Volume 9.3 fL (9.4-12.4); Monocytes Absolute Auto 0.6 X10*3/uL (0.1-1.2); Neutrophils Absolute Auto 5.7 x10*3/uL (2.0-8.3); Neutrophils Percent Auto 65.8 % (45-73); Platelet Count 187 X10*3/uL (160-400); Red Blood Count 2.94 X10*6/uL (4.60-5.80); Red Cell Distribution Width 17.2 % (11.0-16.0); White Blood Count 8.6 X10*3/uL (4.8-10.8)
[2022-05-24 07:42] LABS: Anion Gap 17 (12-20); Blood Urea Nitrogen 26 mg/dL (9-16); Calcium 7.9 mg/dL (8.4-10.2); Carbon Dioxide 25 mmol/L (22-29); Chloride 92 mmol/L (96-108); Estimated Glomerular Filt Rate 14; Glucose Random 95 mg/dL (60-115); Potassium 4.1 mmol/L (3.3-5.1); Sodium 130 mmol/L (135-145)
== END 2022-05-24 06:29 | disposition home or self-care (01) ==
LOC: HO.MMNH1L 06:28
PROVIDERS: Visit Provider Family Medicine
DX: N18.6 End stage renal disease (principal); Z99.2 Dependence on renal dialysis
CPT/HCPCS: 36415; 80048; 85025

== ENCOUNTER 2022-08-25 17:25 | Inpatient (IN) | payer OTHER, SELFPAY ==
[2022-08-25] VITALS (7 sets, daily range): BP systolic 124–136; BP diastolic 77–92; PULSE 56–60; RESP 15–26; TEMP 36.4–36.6; O2SAT 78–100; BMI 25.4
--- NOTE | ~2022-08-25 | XR_ITS ---
EXAMINATION: XR CHEST CLINICAL INFORMATION: Shortness of breath COMPARISON: Chest x-ray 05/04/2022 TECHNIQUE: Frontal portable view of the chest was obtained. 1830 hours FINDINGS: Left IJ central port catheter tip at the cavoatrial junction. Heart size is enlarged. Lung volume is low. There is mild central pulmonary vascular prominence accentuated by the low inspiratory effort. Focal dense consolidation left lower lobe with silhouetting left diaphragm. No significant pleural effusion. No pneumothorax. Multilevel degenerative spondylosis spine. Marked degenerative change of the glenohumeral joint bilaterally. Bilateral chronic rotator cuff tendon tear of each shoulder XR/XR chest 1V IMPRESSION: 1. Left IJ central port catheter tip at cavoatrial junction. 2. Cardiomegaly. 3. Dense left lower lobe consolidation.
--- NOTE | ~2022-08-25 | US_ITS ---
EXAMINATION: US ABDOMEN LIMITED CLINICAL INFORMATION: Elevated LFTs, history of gallstones. COMPARISON: Abdominal ultrasound 05/02/2022. TECHNIQUE: Real-time imaging of the right upper quadrant abdominal viscera. FINDINGS: PANCREAS: Normal. LIVER: The liver is normal in size. The liver contour is normal. Parenchymal echogenicity is normal. No focal hepatic lesion. There is no intrahepatic biliary duct dilatation seen. GALLBLADDER: Cholelithiasis with gallbladder wall thickening. No significant pericholecystic free fluid. Negative Silverman's sign. COMMON BILE DUCT: Normal in caliber measuring 0.6 cm in diameter. RIGHT KIDNEY: Normal. No hydronephrosis. No renal calculi or focal parenchymal lesions. The kidney measures 8.6 cm in maximum dimension. FREE FLUID: Trace amount of perihepatic free fluid with also small volume of free fluid in the Morison's pouch. US/US abdomen limited IMPRESSION: 1. Cholelithiasis with gallbladder wall thickening suggesting acute cholecystitis in the appropriate clinical setting. If indicated, correlation with a hepatobiliary nuclear medicine study could be obtained. 2. Small volume of free fluid in the perihepatic space and Morison's pouch.
--- NOTE | ~2022-08-25 | CT_ITS ---
EXAMINATION: CT HEAD WITHOUT CONTRAST CLINICAL INFORMATION: Confusion. Slow to respond. COMPARISON: Head CT February 20, 2022. TECHNIQUE: Contiguous axial imaging was performed from the skull base to vertex without intravenous administration of contrast. This CT examination was performed using dose optimization techniques as appropriate, variously including the following: *Automated exposure control *Adjustment of mA and/or kV according to patient size (this includes techniques or standardized protocols for targeted exams where dose is matched to indication/reason for exam; i.e. extremities or head) *Use of iterative reconstruction technique DLP: 602 mGy-cm. FINDINGS: There is no intracranial hemorrhage, extra-axial collection, mass effect, or acute large territorial infarction. There is chronic infarct in the left frontal lobe and basal ganglia with ex vacuo dilatation of the left frontal horn without change from prior. Mild patchy T2/FLAIR hyperintensity is seen within the cerebral white matter most likely reflecting chronic microangiopathic changes. There is no hydrocephalus. There is focal calcific plaque within the midportion of the basilar artery likely resulting in moderate to severe basilar stenosis but without change from prior. Atheromatous changes are also seen along the bilateral carotid siphons and proximal intradural vertebral arteries. The calvarium is intact. The paranasal sinuses and mastoid air cells are clear. CT/CT head/brain wo IV con IMPRESSION: No acute intracranial abnormality. 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
--- NOTE | ~2022-08-25 | NM_ITS ---
EXAMINATION: BILIARY TRACT IMAGING STUDY WITH CCK CLINICAL INFORMATION: Question cholecystitis.. COMPARISON: No previous biliary scan is available for comparison. Abdominal ultrasound dated 08/26/[address] scan of the abdomen and pelvis dated 05/01/2022 are available for comparison. TECHNIQUE: Serial gamma scintillation camera images were obtained over the abdomen for a total observation period of 92 minutes following the intravenous administration of 5 mCi Tc-99m Mebrofenin. FINDINGS: There is good concentration of activity in the liver by 5 minutes post injection. Biliary activity is visualized by 10 minutes. The gallbladder is well visualized by 20 minutes. Small bowel is well visualized by 55 minutes. At 6 minutes post radiopharmaceutical injection, a 30-minute infusion of 1.1 micrograms Sincalide was then begun and an additional 30 minutes of images were obtained. Some gallbladder emptying is noted, but this is less than normal. At the end of the study there is prominently retained activity in the gallbladder but almost complete clearance of activity from the liver and visualization of diffuse small bowel activity. The calculated gallbladder ejection fraction is 33% (normal gallbladder ejection fraction is greater than 35%). NM/NM hepatobiliary w pharm IMPRESSION: 1. Visualization of the gallbladder is evidence of a patent cystic duct and strong evidence against the diagnosis of acute cholecystitis. The common bile duct is patent. Liver function appears normal. 2. Poor gallbladder emptying and a low gallbladder ejection fraction are evidence of impaired gallbladder contractility and most likely due to chronic cholecystitis.
--- NOTE | 2022-08-25 18:17 | ECG_ITS ---
Test Reason : SOB Blood Pressure : / mmHG Vent. Rate : 057 BPM Atrial Rate : 057 BPM P-R Int : 206 ms QRS Dur : 136 ms QT Int : 554 ms P-R-T Axes : 033 -26 148 degrees QTc Int : 539 ms Sinus bradycardia Left ventricular hypertrophy with QRS widening and repolarization abnormality ( Leona product , Romhilt-Reynolds ) Prolonged QT Abnormal ECG When compared with ECG of 02-MAY-2022 15:41, Nonspecific T wave abnormality no longer evident in Anterior leads QT has lengthened Referred By: Fredy Griffin Electronically Signed By:Wenceslao Segura
--- OUTSIDE RECORDS SUMMARY | 2022-08-25 18:26 | XMS_ITS | Continuity of Care Document ---
:1955 Author Organization [facility] Address [address] [place] [address]- Care Team Providers Name Role Phone Name Rayray KAPLAN Primary Care Physician Encounter [facility] Date(s): 03/09/22 - 05/15/[address] [id number] Attending Physician: Rita Ramos MD Admitting Physician: [...] 0 Refills, Maintenance, 02/09/21 11:36:00 EDT, Tablet, [facility]pharm[facility] #[id number], Partial fill upon patient request if [...] Refills, Soft Stop, 10/30/20 10:37:00 EDT, [facility]pharm[facility] #[id number], Partial fill upon patient request if [...] 30 days ago entered on: 06/18/19 Sex Patient Care team information PersonnelName: Rayray Hart MD Address: Address: [address] [place] [id number]
--- NOTE | 2022-08-25 18:49 | ED_ITS ---
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 The patient reports to me that he presents for dizziness which only present when he tries to stand up. the symptoms started earlier this morning apparently his family called EMS because they went to visit him today and found him to appear short of breath. it was felt that outside of the hospital, he was exhibiting accessory reason to muscle use and was unable to speak in full sentences. The patient will in family reported the patient did in fact go to dialysis yesterday and is due to go back tomorrow as planned. EMS reported the patient skipped dialysis today although given that he and his family report that he went yesterday, it is likely he did go to dialysis yesterday of note, the patient's reported the patient was admitted due to anemia several months back requiring 2 units of packed red blood cell transfusion. For his medical record it appears that this was May 01, 2022. The patient currently denies any pain including headache , chest pain At the time my evaluation he also denies any shortness of breath while at rest it is reported by family the patient has had frequent falls over the last few months Related Data Home Medications Medication Instructions Recorded Confirmed amiodarone 200 mg tablet 1 tab PO DAILY 02/20/22 05/01/22 apixaban 5 mg tablet (Eliquis) 1 tab PO BID 02/20/22 05/01/22 bumetanide 1 mg tablet 1 tab PO BID 02/20/22 05/01/22 carvedilol 3.125 mg tablet 1 tab PO BID 02/20/22 05/01/22 cholecalciferol (vitamin D3) 50 1 tab PO DAILY 02/20/22 05/01/22 mcg (2,000 unit) tablet insulin aspart U-100 100 unit/mL See Protocol subcut QIDACHS 02/20/22 05/01/22 (3 mL) subcutaneous pen (Novolog FlexPen U-100 Insulin aspart) insulin glargine 100 unit/mL (3 15 unit subcut DAILY 02/20/22 05/01/22 mL) subcutaneous pen (Lantus Solostar U-100 Insulin) fluoxetine 20 mg capsule 1 cap PO DAILY 05/01/22 05/01/22 Previous Rx's Medication Instructions Recorded prochlorperazine maleate 5 mg 5 mg PO TID PRN nausea and 04/08/22 tablet (Compazine) vomiting #10 tabs atorvastatin 80 mg tablet 80 mg PO BEDTIME #90 tabs 04/22/22 cefuroxime axetil 250 mg tablet 250 mg PO BID #10 tabs 05/03/22 omeprazole 40 mg capsule,delayed 40 mg PO DAILY #30 caps 05/03/22 release Allergies Allergy/AdvReac Type Severity Reaction Status Date / Time No Known Allergies Allergy Verified 04/08/22 17:45 Review of Systems Constitutional: Constitutional: Reports as per HPI, Denies chills, Denies fatigue, Denies fever(s), Denies headache(s), Denies malaise, Reports weakness, Denies weight gain and Denies weight loss ENT: Reports dizziness and Denies headache(s) Cardiovascular: Cardiovascular: Denies chest pain and Reports dyspnea Respiratory: Respiratory: Denies cough, Denies hemoptysis and Reports dyspnea Gastrointestinal: Gastrointestinal: Denies abdominal pain, Denies constipation and Denies vomiting Genitourinary: Genitourinary: Denies difficulty urinating and Denies dysuria Neurologic: Reports dizziness, Denies headache(s) and Reports weakness Endocrine: Endocrine: Denies fatigue [facility] Past Medical History Medical History (Updated 08/25/22 @ 20:23 by Fredy Griffin) Anemia Atherosclerotic cardiovascular disease Chronic heart failure with preserved ejection fraction Chronic kidney disease, unspecified CKD (chronic kidney disease) ESRD (end stage renal disease) on dialysis Essential hypertension PAF (paroxysmal atrial fibrillation) Type 2 diabetes mellitus with unspecified complications Surgical History History of cardiac catheterization (~07/18/20) History of colon resection Family History Family History Father Esophageal cancer Mother Diabetes Hypertension Social History Social History Household Members: None Housing: Apartment Housing Other:: elderly housing Do you presently have visiting nurse or other home services: Yes (nurse, therapy, 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) Unable to assess alcohol history related to: Unknown Alcohol intake: never Patient Tobacco Use Status: Never used Tobacco Smoked in Last 30 Days: No Use of substances other than those prescribed or required for medical reasons: No Advance Directives: Yes Advance Directives on File: Yes Advance Directives Date on File: 09/21/21 service: No Current occupational status: unemployed Physical Exam ED Vital Signs: Vital Signs - 24 hr 08/25/22 17:41 08/25/22 18:02 08/25/22 19:57 Temperature 97.7 F Pulse Rate 60 59 Respiratory Rate 20 20 22 H Blood Pressure 125/77 128/82 Pulse Oximetry 98 100 78 L Oxygen Delivery Method Nasal Cannula Nasal Cannula Room Air Oxygen Flow Rate 2 08/25/22 19:58 Temperature Pulse Rate Respiratory Rate Blood Pressure Pulse Oximetry 100 Oxygen Delivery Method Nasal Cannula Oxygen Flow Rate 2 BMI result Body Mass Index 25.4 Const General: healthy appearing, comfortable, no acute distress, alert and awake Nutritional Appearance: thin Orientation/consciousness: patient oriented x3 HENMT Head: Yes normocephalic and Yes atraumatic Eyes Eyelids: Yes eyelids normal Conjunctivae: conjunctivae normal Sclerae: sclerae normal Corneas: corneas normal Pupils: Equal, round and reactive pupils present EOM: EOMs intact bilaterally Chest Other: left chest Port-A-Cath present Resp Effort & Inspection: normal respiratory effort, able to speak in complete sentences, no audible wheezes and not labored Auscultation: diminished lung sounds (LLL otherwise clear to auscultation) GI Inspection: No distended Palpation (GI): Soft to palpation, nontender and no guarding Skin General skin exam: no rashes or lesions noted and elasticity normal Lesions: no lesions Rashes: no rashes Neuro General: patient oriented x3 Cranial nerves: Yes Equal, round and reactive pupils present Extrem General: Yes full ROM Medical Decision Making Medical Decision Making MDM Narrative: this is a 67-year-old male past medical history significant for end-stage renal disease on dialysis, a poor they went to dialysis yesterday and is due to go tomorrow. He has a history of atrial fibrillation which is reported as paroxysmal although he is on Eliquis. EKG shows sinus bradycardia with elevated QTC. We will check a magnesium level due to this. He does have some T-wave inversions in the lateral leads which were present from his most recent EKG in April of last year. The patient reports dizziness which he describes as room spinning when asked to elaborate. He also reports associated shortness of breath. This could be related to anemia has history of chronic anemia with recent blood transfusion a few months ago. Will check basic labs , troponin, chest x-ray. There is no evidences infection at time. Patient is afebrile, slightly bradycardic at 57 beats per minute. lungs are clear although diminished on left, no evidence of peripheral edema, less likely to be volume overloaded at this time. 7:29 p.m. infection identified with left lower lobe pneumonia. There is no systemic inflammatory response to muscle no evidence of sepsis. White count is pending still. blood cultures and lactic acid will be added on 8:20 p.m.. Received phone call from the lab, patient had a critical troponin to 114.7. He denies any chest pain undetermined he has had elevated troponins in the past due to his history of ischemic cardiomyopathy. EKG does not show any evidence of acute ischemia, will not treat as acute ACS at this time. However his lactate was elevated 2.9. He does not meet criteria for sepsis but he was given a small bolus of 500 cc of normal saline to treat this. He was given ceftriaxone and doxycycline to treat his left lower lobe pneumonia. We avoided initially fluoroquinolones and macrolides due to his elevated QTC of 539. The patient's magnesium level is 1.8 within normal limits. Differential Diagnosis Differential Diagnoses: The differential diagnosis associated with the presentation includes ( definitive thrive, weakness, congestive heart failure, volume overload, orthostasis, acute on chronic anemia, pneumonia, bronchitis) Community-acquired pneumonia, hypoxia Consult Healthcare Provider Management of the patient was discussed with: Hospitalist Lab Data MDM Lab Attestation statement: I reviewed the patient's lab results. as discussed above, critical troponin of 114.7 doubt ACS, critical lactate of 2.9. 08/25/22 19:19 08/25/22 19:19 Labs: Lab Results 08/25/22 08/25/22 08/25/22 Range/Units 19:19 19:19 19:19 WBC 9.1 (4.8-10.8) X10*3/uL RBC 3.39 L (4.60-5.80) X10*6/uL Hgb 10.9 L D (14.0-18.0) g/dl Hct 32.7 L D (42.0-52.0) % MCV 96.5 (80.0-98.0) fL MCH 32.2 (27.0-33.0) pg MCHC 33.3 (31.0-36.0) g/dl RDW 17.4 H (11.0-16.0) % Plt Count 147 L (160-400) X10*3/uL MPV 10.5 (9.4-12.4) fL Immature Gran % (Auto) 0.6 H (0.0-0.4) % Neut % (Auto) 81.0 H (45-73) % Lymph % (Auto) 11.5 L (20-40) % [place] % (Auto) 6.6 (2-11) % Eos % (Auto) 0.2 (0-4) % Baso % (Auto) 0.1 (0-2) % Lymph # (Auto) 1.0 L (1.2-4.9) X10*3/uL [place] # (Auto) 0.6 (0.1-1.2) X10*3/uL Eos # (Auto) 0.0 (0.0-0.4) X10*3/uL Baso # (Auto) 0.0 (0.0-0.2) X10*3/uL Abs Immat Gran (auto) 0.05 H (0.00-0.03) X10*3/uL Absolute Neuts (auto) 7.3 (2.0-8.3) x10*3/uL Absolute Nucleated RBC 0.020 H (0.0-0.012) X10*3/uL Nucleated RBC % (auto) 0.2 (0.0-0.2) /100WBC PT 23.4 H (10.0-13.1) SEC INR 2.0 H (0.9-1.1) APTT 30.6 (26.0-36.4) SEC Sodium 135 (135-145) mmol/L Potassium 3.6 (3.3-5.1) mmol/L Chloride 96 (96-108) mmol/L Carbon Dioxide 25 (22-29) mmol/L Anion Gap 18 (12-20) BUN 24 H (9-16) mg/dL Creatinine 4.13 H* (0.5-1.4) mg/dL Estim Creat Clear Calc 13.0 Estimated GFR 14 Random Glucose 145 H (60-115) mg/dL Lactic Acid (0.5-2.0) mmol/L Calcium 7.8 L (8.4-10.2) mg/dL Phosphorus 4.2 (2.7-4.5) mg/dL Magnesium 1.8 (1.6-2.6) mg/dL Total Bilirubin 1.5 H (0.0-1.0) mg/dL AST 209 H (5-37) U/L ALT 349 H (0-40) U/L Alkaline Phosphatase 146 H (39-117) U/L Troponin I High Sens (<3.5-35.0) ng/L Total Protein 6.7 (6.5-8.0) g/dL Albumin 3.0 L (3.5-5.0) g/dL Influenza Type A (PCR) (Negative) Influenza Type B (PCR) (Negative) RSV RNA Qual (PCR) (Negative) SARS-CoV-2 RNA (RT-PCR) (Negative) Blood Type Antibody Screen 08/25/22 08/25/22 08/25/22 Range/Units 19:19 19:19 19:20 WBC (4.8-10.8) X10*3/uL RBC (4.60-5.80) X10*6/uL Hgb (14.0-18.0) g/dl Hct (42.0-52.0) % MCV (80.0-98.0) fL MCH (27.0-33.0) pg MCHC (31.0-36.0) g/dl RDW (11.0-16.0) % Plt Count (160-400) X10*3/uL MPV (9.4-12.4) fL Immature Gran % (Auto) (0.0-0.4) % Neut % (Auto) (45-73) % Lymph % (Auto) (20-40) % [place] % (Auto) (2-11) % Eos % (Auto) (0-4) % Baso % (Auto) (0-2) % Lymph # (Auto) (1.2-4.9) X10*3/uL [place] # (Auto) (0.1-1.2) X10*3/uL Eos # (Auto) (0.0-0.4) X10*3/uL Baso # (Auto) (0.0-0.2) X10*3/uL Abs Immat Gran (auto) (0.00-0.03) X10*3/uL Absolute Neuts (auto) (2.0-8.3) x10*3/uL Absolute Nucleated RBC (0.0-0.012) X10*3/uL Nucleated RBC % (auto) (0.0-0.2) /100WBC PT (10.0-13.1) SEC INR (0.9-1.1) APTT (26.0-36.4) SEC Sodium (135-145) mmol/L Potassium (3.3-5.1) mmol/L Chloride (96-108) mmol/L Carbon Dioxide (22-29) mmol/L Anion Gap (12-20) BUN (9-16) mg/dL Creatinine (0.5-1.4) mg/dL Estim Creat Clear Calc Estimated GFR Random Glucose (60-115) mg/dL Lactic Acid (0.5-2.0) mmol/L Calcium (8.4-10.2) mg/dL Phosphorus (2.7-4.5) mg/dL Magnesium (1.6-2.6) mg/dL Total Bilirubin (0.0-1.0) mg/dL AST (5-37) U/L ALT (0-40) U/L Alkaline Phosphatase (39-117) U/L Troponin I High Sens 114.7 H* (<3.5-35.0) ng/L Total Protein (6.5-8.0) g/dL Albumin (3.5-5.0) g/dL Influenza Type A (PCR) NEGATIVE (Negative) Influenza Type B (PCR) NEGATIVE (Negative) RSV RNA Qual (PCR) NEGATIVE (Negative) SARS-CoV-2 RNA (RT-PCR) NEGATIVE (Negative) Blood Type O Positive Antibody Screen NEGATIVE 08/25/22 Range/Units 19:40 WBC (4.8-10.8) X10*3/uL RBC (4.60-5.80) X10*6/uL Hgb (14.0-18.0) g/dl Hct (42.0-52.0) % MCV (80.0-98.0) fL MCH (27.0-33.0) pg MCHC (31.0-36.0) g/dl RDW (11.0-16.0) % Plt Count (160-400) X10*3/uL MPV (9.4-12.4) fL Immature Gran % (Auto) (0.0-0.4) % Neut % (Auto) (45-73) % Lymph % (Auto) (20-40) % [place] % (Auto) (2-11) % Eos % (Auto) (0-4) % Baso % (Auto) (0-2) % Lymph # (Auto) (1.2-4.9) X10*3/uL [place] # (Auto) (0.1-1.2) X10*3/uL Eos # (Auto) (0.0-0.4) X10*3/uL Baso # (Auto) (0.0-0.2) X10*3/uL Abs Immat Gran (auto) (0.00-0.03) X10*3/uL Absolute Neuts (auto) (2.0-8.3) x10*3/uL Absolute Nucleated RBC (0.0-0.012) X10*3/uL Nucleated RBC % (auto) (0.0-0.2) /100WBC PT (10.0-13.1) SEC INR (0.9-1.1) APTT (26.0-36.4) SEC Sodium (135-145) mmol/L Potassium (3.3-5.1) mmol/L Chloride (96-108) mmol/L Carbon Dioxide (22-29) mmol/L Anion Gap (12-20) BUN (9-16) mg/dL Creatinine (0.5-1.4) mg/dL Estim Creat Clear Calc Estimated GFR Random Glucose (60-115) mg/dL Lactic Acid 2.9 H* (0.5-2.0) mmol/L Calcium (8.4-10.2) mg/dL Phosphorus (2.7-4.5) mg/dL Magnesium (1.6-2.6) mg/dL Total Bilirubin (0.0-1.0) mg/dL AST (5-37) U/L ALT (0-40) U/L Alkaline Phosphatase (39-117) U/L Troponin I High Sens (<3.5-35.0) ng/L Total Protein (6.5-8.0) g/dL Albumin (3.5-5.0) g/dL Influenza Type A (PCR) (Negative) Influenza Type B (PCR) (Negative) RSV RNA Qual (PCR) (Negative) SARS-CoV-2 RNA (RT-PCR) (Negative) Blood Type Antibody Screen Independent Interpretation I performed an independent interpretation of an: EKG and Plain X-Ray Interpretation: EKG sinus bradycardia rate of 57 beats per minute. Chest x-ray, agree with Radiology interpretation of left lower lobe infiltrate Radiology Impression Discussion of test interpretation with radiology: I have reviewed the radiologist's reading. External Record Review External record reviewed: Inpatient record and Outpatient record Discharge Plan Discharge Clinical Impression: Acute respiratory failure with hypoxia, Community acquired pneumonia Patient Disposition: Admitted As Inpatient Prescriptions: No Action atorvastatin 80 mg tablet 80 mg PO BEDTIME Qty: 90 1RF Rx Instructions: Please call Dr. Abarca's office to schedule follow up appointment in order to continue refills; [phone]. prochlorperazine maleate [Compazine] 5 mg tablet 5 mg PO TID PRN (Reason: nausea and vomiting) Qty: 10 0RF amiodarone 200 mg tablet 1 tab PO DAILY carvedilol 3.125 mg tablet 1 tab PO BID bumetanide 1 mg tablet 1 tab PO BID insulin aspart U-100 [Novolog FlexPen U-100 Insulin] 100 unit/mL (3 mL) ins ulin pen See Protocol subcut QIDACHS Protocol: Insulin Correction Scale Less than or equal to 110 ---- Give (units): 0 111 to 150 Give (units): 0 151 to 200 Give (units): 2 201 to 250 Give (units): 4 251 to 300 Give (units): 6 301 to 350 Give (units): 8 Greater than 350 Give (units): 10 Call MD if Blood Glucose > : 350 insulin glargine [Lantus Solostar U-100 Insulin] 100 unit/mL (3 mL) insulin pen 15 unit subcut DAILY cholecalciferol (vitamin D3) 50 mcg (2,000 unit) tablet 1 tab PO DAILY Eliquis 5 mg tablet 1 tab PO BID fluoxetine 20 mg capsule 1 cap PO DAILY omeprazole 40 mg Capsule,Delayed Release(Dr/Ec) 40 mg PO DAILY Qty: 30 0RF cefuroxime axetil 250 mg tablet 250 mg PO BID Qty: 10 0RF
[2022-08-25 19:26] LABS: MANUAL DIFF FLAG NO
[2022-08-25 19:36] LABS: Prothrombin Time 23.4 SEC (10.0-13.1)
[2022-08-25 19:38] LABS: Partial Thromboplastin Time 30.6 SEC (26.0-36.4)
--- NOTE | 2022-08-25 19:45 | PC.NURSE ---
pt alert to person/place, iv inserted, labs drawn, ekg performed, nasal swab performed, school bus monitor applied, pt placed on O2 2L
[2022-08-25 19:46] LABS: Basophils Percent Auto 0.1 % (0-2); Eosinophils Percent Auto 0.2 % (0-4); Hematocrit 32.7 % (42.0-52.0); Hemoglobin 10.9 g/dl (14.0-18.0); Imm Gran Abs Auto 0.05 X10*3/uL (0.00-0.03); Imm Gran Pct Auto 0.6 % (0.0-0.4); Lymphocytes Percent Auto 11.5 % (20-40); Mean Corpuscular HGB Conc 33.3 g/dl (31.0-36.0); Mean Corpuscular Hemoglobin 32.2 pg (27.0-33.0); Mean Corpuscular Volume 96.5 fL (80.0-98.0); Mean Platelet Volume 10.5 fL (9.4-12.4); Monocytes Absolute Auto 0.6 X10*3/uL (0.1-1.2); Monocytes Percent Auto 6.6 % (2-11); NRBC Pct Auto 0.2 /100WBC (0.0-0.2); Neutrophils Absolute Auto 7.3 x10*3/uL (2.0-8.3); Platelet Count 147 X10*3/uL (160-400); Red Blood Count 3.39 X10*6/uL (4.60-5.80); Red Cell Distribution Width 17.4 % (11.0-16.0); White Blood Count 9.1 X10*3/uL (4.8-10.8)
--- NOTE | 2022-08-25 19:58 | PC.NURSE ---
provider took patient off O2, patient desatted to 78% with good pleth, pt put back on O2 and recovered. will notify provider
[2022-08-25 20:00] LABS: Alanine Aminotransferase 349 U/L (0-40); Alkaline Phosphatase 146 U/L (39-117); Anion Gap 18 (12-20); Aspartate Amino Transferase 209 U/L (5-37); Bilirubin Total 1.5 mg/dL (0.0-1.0); Blood Urea Nitrogen 24 mg/dL (9-16); Calcium 7.8 mg/dL (8.4-10.2); Carbon Dioxide 25 mmol/L (22-29); Chloride 96 mmol/L (96-108); Estimated Glomerular Filt Rate 14; Glucose Random 145 mg/dL (60-115); Magnesium 1.8 mg/dL (1.6-2.6); Phosphorus 4.2 mg/dL (2.7-4.5); Potassium 3.6 mmol/L (3.3-5.1); Sodium 135 mmol/L (135-145); Total Protein 6.7 g/dL (6.5-8.0)
[2022-08-25 20:01] LABS: Troponin-I High Sensitivity 114.7 ng/L (<3.5-35.0)
[2022-08-25 20:09] LABS: Lactic Acid 2.9 mmol/L (0.5-2.0)
[2022-08-25 20:09] LABS: Influenza A PCR NEGATIVE (Negative); Influenza B PCR NEGATIVE (Negative); Resp Syncy Virus RNA Qual PCR NEGATIVE (Negative); SARS COV2 PCR INHOUSE NEGATIVE (Negative)
--- NOTE | 2022-08-25 20:29 | PHA.MEDREC ---
Pharmacy Consult ? Medication Reconciliation Pharmacy has completed the medication reconciliation.
[2022-08-25] MEDS: 0.9 % Sodium Chloride 500 ML IV (20:32)
[2022-08-25] MEDS: cefTRIAXone sodium 1 GM in 0.9 % Sodium Chloride 50 ML IV (20:32)
--- NOTE | 2022-08-25 20:37 | PM.IMHP ---
History of Present Illness Date of Service: 08/25/22 Chief Complaint: Dyspnea This is a 67-year-old male with pertinent history of ESRD on hemodialysis, coronary artery disease with ischemic cardiomyopathy and congestive heart failure with reduced ejection fraction, insulin-dependent diabetes mellitus, paroxysmal atrial fibrillation on Eliquis, mood disorder who presents to the emergency department for evaluation of dyspnea. Patient states he started having dyspnea, worse with exertion and productive cough that started yesterday. Denies fever, chills, chest discomfort, palpitations, abdominal pain, changes in urinary or bowel habits. No sick contacts. Soon patient started to dyspnea even at rest. Denies orthopnea or PND. His last dialysis session was 08/24 In the emergency department, patient was found to be hypoxemic and imaging with left-sided consolidation. Review of Systems Constitutional: Constitutional: Reports no additional constitutional complaints Cardiovascular: Cardiovascular: Reports dyspnea on exertion Respiratory: Respiratory: Reports cough and Reports dyspnea on exertion Gastrointestinal: Gastrointestinal: Reports no additional gastrointestinal complaints Genitourinary: Genitourinary: Reports no additional male genitourinary complaints [facility] Medical History Anemia Atherosclerotic cardiovascular disease Chronic heart failure with preserved ejection fraction Chronic kidney disease, unspecified CKD (chronic kidney disease) ESRD (end stage renal disease) on dialysis Essential hypertension PAF (paroxysmal atrial fibrillation) Type 2 diabetes mellitus with unspecified complications Family History Father Esophageal cancer Mother Diabetes Hypertension Surgical History History of cardiac catheterization (~07/18/20) History of colon resection Social History Household Members: None Housing: Apartment Housing Other:: elderly housing Do you presently have visiting nurse or other home services: Yes (nurse, therapy, [employer] DIRECTOR) Unable to assess alcohol history related to: Unknown Alcohol intake: never Patient Tobacco Use Status: Never used Tobacco Smoked in Last 30 Days: No Use of substances other than those prescribed or required for medical reasons: No Advance Directives: Yes Advance Directives on File: Yes Advance Directives Date on File: 09/21/21 Nutrition Risks: No Nutritional Risk service: No Current occupational status: unemployed Meds Allergies Allergy/AdvReac Type Severity Reaction Status Date / Time No Known Allergies Allergy Verified 04/08/22 17:45 Active Medications: Current Medications Sodium Chloride (Ns) 500 mls @ 500 mls/hr IV .Q1H STA Stop: 08/25/22 21:08 Last Admin: 08/25/22 20:32 Dose: 500 mls/hr Ceftriaxone Sodium 1 gm/ (Sodium Chloride) 50 mls @ 100 mls/hr IV ONCE ONE Stop: 08/25/22 20:46 Last Admin: 08/25/22 20:32 Dose: 100 mls/hr Doxycycline Hyclate 100 mg/ (Sodium Chloride) 250 mls @ 166.67 mls/hr IV ONCE ONE Stop: 08/25/22 21:46 Pharmacy Consult (Consult Rx Perform Med Rec) 1 each MISCELLANE ONCE PRN PRN Reason: Consult order Home Medications Medication Instructions Recorded Confirmed Last Taken Type amiodarone 200 mg tablet 1 tab PO DAILY 02/20/22 08/25/22 08/25/22 History apixaban 5 mg tablet (Eliquis) 1 tab PO BID 02/20/22 08/25/22 08/25/22 History bumetanide 1 mg tablet 1 tab PO BIDWM 02/20/22 08/25/22 08/25/22 History carvedilol 3.125 mg tablet 1 tab PO BID 02/20/22 08/25/22 08/25/22 History cholecalciferol (vitamin D3) 50 1 tab PO DAILY 02/20/22 08/25/22 08/25/22 History mcg (2,000 unit) tablet insulin aspart U-100 100 unit/mL See Protocol subcut QIDACHS 02/20/22 08/25/22 08/25/22 History (3 mL) subcutaneous pen (Novolog FlexPen U-100 Insulin aspart) insulin glargine 100 unit/mL (3 12 unit subcut DAILY 02/20/22 08/25/22 08/25/22 History mL) subcutaneous pen (Lantus Solostar U-100 Insulin) fluoxetine 20 mg capsule 1 cap PO DAILY 05/01/22 08/25/22 08/25/22 History Physical Exam Vital Signs and Narrative: Vital Signs: Last Vital Signs Temp 97.6 F 08/25/22 20:00 Pulse 56 08/25/22 20:00 Resp 15 08/25/22 20:00 BP 124/87 08/25/22 20:00 Pulse Ox 100 08/25/22 20:00 O2 Del Method 08/25/22 20:00 O2 Flow Rate 2 08/25/22 20:00 Oxygen Flow Rate 2 08/25/22 17:41 BMI result Body Mass Index 25.4 Middle-aged male lying in bed in mild distress on 2 L supplemental oxygen Neck supple, no JVD Regular rate and rhythm, S1-S2 heard Left-sided crackles noted Abdomen soft nontender, no guarding, no rigidity Patient is awake, alert and oriented to self, place, time and person ; no focal motor deficit Psych: Normal mood No pedal edema Results Labs 08/25/22 19:19 08/25/22 19:19 Labs: Laboratory Results - last 24 hr 08/25/22 08/25/22 08/25/22 19:19 19:19 19:19 MCV 96.5 MCH 32.2 MCHC 33.3 RDW 17.4 H Plt Count 147 L MPV 10.5 Immature Gran % (Auto) 0.6 H Neut % (Auto) 81.0 H Lymph % (Auto) 11.5 L [place] % (Auto) 6.6 Eos % (Auto) 0.2 Baso % (Auto) 0.1 Lymph # (Auto) 1.0 L [place] # (Auto) 0.6 Eos # (Auto) 0.0 Baso # (Auto) 0.0 Abs Immat Gran (auto) 0.05 H Absolute Neuts (auto) 7.3 Absolute Nucleated RBC 0.020 H Nucleated RBC % (auto) 0.2 PT 23.4 H INR 2.0 H APTT 30.6 Anion Gap 18 Estim Creat Clear Calc 13.0 Estimated GFR 14 Random Glucose 145 H Lactic Acid Calcium 7.8 L Phosphorus 4.2 Magnesium 1.8 Total Bilirubin 1.5 H AST 209 H ALT 349 H Alkaline Phosphatase 146 H Troponin I High Sens Total Protein 6.7 Albumin 3.0 L Influenza Type A (PCR) Influenza Type B (PCR) RSV RNA Qual (PCR) SARS-CoV-2 RNA (RT-PCR) Blood Type Antibody Screen 08/25/22 08/25/22 08/25/22 19:19 19:19 19:20 MCV MCH MCHC RDW Plt Count MPV Immature Gran % (Auto) Neut % (Auto) Lymph % (Auto) [place] % (Auto) Eos % (Auto) Baso % (Auto) Lymph # (Auto) [place] # (Auto) Eos # (Auto) Baso # (Auto) Abs Immat Gran (auto) Absolute Neuts (auto) Absolute Nucleated RBC Nucleated RBC % (auto) PT INR APTT Anion Gap Estim Creat Clear Calc Estimated GFR Random Glucose Lactic Acid Calcium Phosphorus Magnesium Total Bilirubin AST ALT Alkaline Phosphatase Troponin I High Sens 114.7 H* Total Protein Albumin Influenza Type A (PCR) NEGATIVE Influenza Type B (PCR) NEGATIVE RSV RNA Qual (PCR) NEGATIVE SARS-CoV-2 RNA (RT-PCR) NEGATIVE Blood Type O Positive Antibody Screen NEGATIVE 08/25/22 19:40 MCV MCH MCHC RDW Plt Count MPV Immature Gran % (Auto) Neut % (Auto) Lymph % (Auto) [place] % (Auto) Eos % (Auto) Baso % (Auto) Lymph # (Auto) [place] # (Auto) Eos # (Auto) Baso # (Auto) Abs Immat Gran (auto) Absolute Neuts (auto) Absolute Nucleated RBC Nucleated RBC % (auto) PT INR APTT Anion Gap Estim Creat Clear Calc Estimated GFR Random Glucose Lactic Acid 2.9 H* Calcium Phosphorus Magnesium Total Bilirubin AST ALT Alkaline Phosphatase Troponin I High Sens Total Protein Albumin Influenza Type A (PCR) Influenza Type B (PCR) RSV RNA Qual (PCR) SARS-CoV-2 RNA (RT-PCR) Blood Type Antibody Screen Imaging Radiologist's Impressions: Impressions Chest X-Ray 08/25/22 18:31 IMPRESSION: 1. Left IJ central port catheter tip at cavoatrial junction. 2. Cardiomegaly. 3. Dense left lower lobe consolidation. Assessment and Plan (1) Community acquired pneumonia: Status: Acute (2) Acute respiratory failure with hypoxia: Status: Acute Plan This is a 67-year-old male with pertinent history of ESRD on hemodialysis, coronary artery disease with ischemic cardiomyopathy and congestive heart failure with reduced ejection fraction, insulin-dependent diabetes mellitus, paroxysmal atrial fibrillation on Eliquis, mood disorder who presents to the emergency department for evaluation of dyspnea. #. Acute hypoxemic respiratory failure secondary to community-acquired pneumonia: Will admit patient and initiate empiric IV antibiotics. Sputum culture and blood culture pending. Monitor oxygen saturation and wean as tolerated. Currently on 2 L supplemental oxygen. #. ESRD on hemodialysis: Consulting nephrology #. Congestive heart failure with reduced ejection fraction: Compensated at the time of admission. Continue home Bumex, beta-benjamin #. Insulin-dependent diabetes mellitus: Continue basal regimen and initiating Accu-Cheks with sliding scale insulin. #. Elevated troponin, type 2 due to increased demand #. Paroxysmal atrial fibrillation on Eliquis and amiodarone #. Mood disorder: Continue fluoxetine #. Chronic normocytic anemia: Hemoglobin above transfusion threshold DVT prophylaxis: Eliquis Full code Low-salt diet Admit as inpatient and will require two night minimum hospital stay for IV antibiotics and supplemental oxygen Time Spent With Patient Time: Total time managing care of this patient today ____ minutes. Quality Stroke Does the patient have a stroke diagnosis?: No VTE Prior VTE?: No VTE Risk Level:: Medical - moderate - high VTE Device Contraindication: Treatment Not Indicated VTE Drug Contraindication: N/A - Med Ordered
[2022-08-25 21:08] LABS: Glucose, Whole Blood 111 mg/dL (60-115)
[2022-08-25] MEDS: carvediloL 3.125 MG TABLET PO (21:41)
[2022-08-25] MEDS: Atorvastatin Calcium 80 MG TABLET PO (21:41)
[2022-08-25] MEDS: Apixaban 5 MG TABLET PO (21:41)
[2022-08-25] MEDS: Doxycycline Hyclate 100 MG in 0.9 % Sodium Chloride 250 ML 166.67 MG IV (21:42)
--- NOTE | 2022-08-25 21:47 | PC.NURSE ---
pt medicated per provider order, took medications whole in water.
[2022-08-25 21:49] LABS: Reflex Lactate? Lactic Acid Added
--- NOTE | 2022-08-25 22:14 | PC.NURSE ---
pt reporting burning in arm from IV, IV infiltrated, 20G IV placed right AC, repeat lactic drawn.
[2022-08-25 22:29] LABS: ~Lactic Acid-LAB USE ONLY 2.9 mmol/L (0.5-2.0)
[2022-08-25] MEDS: Azithromycin 500 MG in 0.9 % Sodium Chloride 250 ML 125 MG IV (23:38)
--- NOTE | 2022-08-25 23:44 | PC.NURSE ---
pt medicated per provider order, vss, resting quietly. no new orders at this time.
[2022-08-26 00:06] LABS: Reflex Lactate? 2 Y
[2022-08-26 00:49] LABS: ~Lactic Acid-LAB USE ONLY 2.2 mmol/L (0.5-2.0)
[2022-08-26 03:34] VITALS: BP 125/74; PULSE 52; RESP 20; O2SAT 100
[2022-08-26 06:05] VITALS: BP 144/83; PULSE 53; RESP 17; TEMP 36.4; O2SAT 100
[2022-08-26 06:56] LABS: Glucose, Whole Blood 107 mg/dL (60-115)
[2022-08-26 07:03] LABS: MANUAL DIFF FLAG NO
[2022-08-26 07:09] LABS: Basophils Percent Auto 0.2 % (0-2); Eosinophils Percent Auto 0.5 % (0-4); Hematocrit 31.6 % (42.0-52.0); Hemoglobin 10.2 g/dl (14.0-18.0); Imm Gran Abs Auto 0.07 X10*3/uL (0.00-0.03); Imm Gran Pct Auto 0.8 % (0.0-0.4); Lymphocytes Absolute Auto 1.6 X10*3/uL (1.2-4.9); Lymphocytes Percent Auto 18.9 % (20-40); Mean Corpuscular HGB Conc 32.3 g/dl (31.0-36.0); Mean Corpuscular Hemoglobin 30.9 pg (27.0-33.0); Mean Corpuscular Volume 95.8 fL (80.0-98.0); Mean Platelet Volume 10.1 fL (9.4-12.4); Monocytes Absolute Auto 0.7 X10*3/uL (0.1-1.2); Monocytes Percent Auto 7.6 % (2-11); NRBC Pct Auto 0.2 /100WBC (0.0-0.2); Neutrophils Absolute Auto 6.1 x10*3/uL (2.0-8.3); Platelet Count 145 X10*3/uL (160-400); Red Cell Distribution Width 17.7 % (11.0-16.0); White Blood Count 8.5 X10*3/uL (4.8-10.8)
[2022-08-26 07:37] LABS: Anion Gap 17 (12-20); Blood Urea Nitrogen 27 mg/dL (9-16); Calcium 7.8 mg/dL (8.4-10.2); Carbon Dioxide 24 mmol/L (22-29); Chloride 99 mmol/L (96-108); Creatinine Clr Calc Pharmacy 12.4; Estimated Glomerular Filt Rate 14; Glucose Random 95 mg/dL (60-115); Potassium 3.8 mmol/L (3.3-5.1); Sodium 136 mmol/L (135-145)
[2022-08-26] MEDS: carvediloL 3.125 MG TABLET PO ×2 (07:41→21:13)
[2022-08-26] MEDS: Apixaban 5 MG TABLET PO ×2 (07:41→21:13)
[2022-08-26] MEDS: Insulin Glargine,Hum.rec.anlog 100 UNIT/ML 10 ML VIAL 10 UNIT SUBCUT (07:41)
[2022-08-26] MEDS: Amiodarone HCL 200 MG TABLET PO (07:41)
[2022-08-26] MEDS: FLUoxetine HCl 20 MG CAPSULE PO (07:41)
[2022-08-26] MEDS: Cholecalciferol (Vitamin D3) 25 MCG TABLET 50 MCG PO (07:41)
[2022-08-26] MEDS: Bumetanide 1 MG TABLET PO ×2 (07:42→18:24)
--- NOTE | 2022-08-26 11:18 | P.CONNP_ITS ---
History of Present Illness Reason for Consult Consult date: 08/26/22 Chief Complaint Chief complaint: Dyspnea History of Present Illness Narrative: 67 year old patient with history of ESRD presented to the hospital with shortness of breath. He normally dialyzes Tuesday, and Tuesday at the [facility] unit. He complains of having dyspnea, worse with exertion and productive cough. He denies fever, chills, chest discomfort, palpitations, abdominal pain, changes in urinary or bowel habits.? His last dialysis session was on 08/24. Review of Systems Review of Systems 10 points ROS negative except for pertinent in HPI [facility] Past Medical History Medical History Anemia Atherosclerotic cardiovascular disease Chronic heart failure with preserved ejection fraction Chronic kidney disease, unspecified CKD (chronic kidney disease) ESRD (end stage renal disease) on dialysis Essential hypertension PAF (paroxysmal atrial fibrillation) Type 2 diabetes mellitus with unspecified complications Family History Family History Father Esophageal cancer Mother Diabetes Hypertension Surgical History Surgical History History of cardiac catheterization (~07/18/20) History of colon resection Social History Social History Household Members: None Housing: Apartment Housing Other:: elderly housing Do you presently have visiting nurse or other home services: Yes (nurse, therapy, [employer]) Unable to assess alcohol history related to: Unknown Alcohol intake: never Patient Tobacco Use Status: Never used Tobacco Smoked in Last 30 Days: No Use of substances other than those prescribed or required for medical reasons: No Advance Directives: Yes Advance Directives on File: Yes Advance Directives Date on File: 09/21/21 Nutrition Risks: No Nutritional Risk service: No Current occupational status: unemployed Meds Allergies Allergy/AdvReac Type Severity Reaction Status Date / Time No Known Allergies Allergy Verified 04/08/22 17:45 Active Medications: Current Medications Acetaminophen (Acetaminophen 325 Mg Tablet) 650 mg PO Q6H PRN PRN Reason: Pain, Mild (Pain Scale 1-3) Amiodarone HCl (Amiodarone Hcl 200 Mg Tablet) 200 mg PO DAILY [facility] Last Admin: 08/26/22 07:41 Dose: 200 mg Apixaban (Apixaban 5 Mg Tablet) 5 mg PO BID [facility] Last Admin: 08/26/22 07:41 Dose: 5 mg Atorvastatin Calcium (Atorvastatin Calcium 80 Mg Tablet) 80 mg PO BEDTIME [facility] Last Admin: 08/25/22 21:41 Dose: 80 mg Bumetanide (Bumetanide 1 Mg Tablet) 1 mg PO BIDWM [facility]; Protocol Last Admin: 08/26/22 07:42 Dose: 1 mg Carvedilol (Carvedilol 3.125 Mg Tablet) 3.125 mg PO BID [facility]; Protocol Last Admin: 08/26/22 07:41 Dose: 3.125 mg Dextrose (Dextrose 50 % 25 Gm/50 Ml Vial) 25 gm IVPUSH Q15M PRN; Protocol PRN Reason: per Hypoglycemia Standing Ord. Fluoxetine HCl (Fluoxetine Hcl 20 Mg Capsule) 20 mg PO DAILY [facility] Last Admin: 08/26/22 07:41 Dose: 20 mg Glucose (Glucose Gel 15 Gm Gel..Gram.) 15 gm PO Q15M PRN; Protocol PRN Reason: per Hypoglycemia Standing Ord. Ceftriaxone Sodium 1 gm/ (Sodium Chloride) 50 mls @ 100 mls/hr IV Q24H [facility] Last Admin: 08/25/22 21:24 Dose: Not Given Azithromycin 500 mg/ Sodium (Chloride) 250 mls @ 125 mls/hr IV Q24H [facility] Last Infusion: 08/26/22 01:53 Dose: Infused Insulin Glargine (Insulin Glargine,Hum.Rec.Anlog 100 Unit/Ml 10 Ml Vial) 10 unit SUBCUT DAILY [facility] Last Admin: 08/26/22 07:41 Dose: 10 unit Insulin Human Lispro (Insulin Lispro 100 Unit/Ml 3 Ml Vial) 0 unit SUBCUT QIDACHS [facility]; Protocol Last Admin: 08/26/22 06:54 Dose: Not Given Melatonin (Melatonin 3 Mg Tablet) 6 mg PO BEDTIME PRN PRN Reason: Insomnia Ondansetron HCl (Ondansetron Hcl 4 Mg/2 Ml Vial) 4 mg IVPUSH Q8H PRN PRN Reason: Nausea and Vomiting Pharmacy Consult (Consult Rx Perform Med Rec) 1 each MISCELLANE ONCE PRN PRN Reason: Consult order Sodium Chloride (0.9 % Sodium Chloride Flush 3 Ml Syringe) 3 ml IVFLUSH QSHIFT [facility] Last Admin: 08/26/22 06:48 Dose: Not Given Vitamin D (Cholecalciferol (Vitamin D3) 25 Mcg Tablet) 50 mcg PO DAILY [facility] Last Admin: 08/26/22 07:41 Dose: 50 mcg Home Medications Medication Instructions Recorded Confirmed Last Taken Type amiodarone 200 mg tablet 1 tab PO DAILY 02/20/22 08/25/22 08/25/22 History apixaban 5 mg tablet (Eliquis) 1 tab PO BID 02/20/22 08/25/22 08/25/22 History bumetanide 1 mg tablet 1 tab PO BIDWM 02/20/22 08/25/22 08/25/22 History carvedilol 3.125 mg tablet 1 tab PO BID 02/20/22 08/25/22 08/25/22 History cholecalciferol (vitamin D3) 50 1 tab PO DAILY 02/20/22 08/25/22 08/25/22 History mcg (2,000 unit) tablet insulin aspart U-100 100 unit/mL See Protocol subcut QIDACHS 02/20/22 08/25/22 08/25/22 History (3 mL) subcutaneous pen (Novolog FlexPen U-100 Insulin aspart) insulin glargine 100 unit/mL (3 12 unit subcut DAILY 02/20/22 08/25/22 08/25/22 History mL) subcutaneous pen (Lantus Solostar U-100 Insulin) fluoxetine 20 mg capsule 1 cap PO DAILY 05/01/22 08/25/22 08/25/22 History Physical Exam Vital Signs: Last Vital Signs Temp 97.5 F 08/26/22 06:05 Pulse 53 08/26/22 06:05 Resp 17 08/26/22 06:05 BP 144/83 H 08/26/22 06:05 Pulse Ox 100 08/26/22 06:05 O2 Del Method 08/26/22 06:05 O2 Flow Rate 2 08/26/22 06:05 Oxygen Flow Rate 2 08/25/22 17:41 BMI result Body Mass Index 25.4 Const General: no acute distress HEENT Head: Yes normocephalic and Yes atraumatic Neck Neck: Yes supple Resp Auscultation: diminished lung sounds Cardio Heart sounds: S1 normal heart sound present and S2 normal heart sound present GI Palpation (GI): Soft to palpation and nontender Extrem General: Yes no pedal edema Results Lab Results 08/26/22 06:37 08/26/22 06:36 Lab results: Chemistry 08/25/22 08/26/22 19:19 06:36 Sodium 135 136 Potassium 3.6 3.8 Carbon Dioxide 25 24 BUN 24 H 27 H Creatinine 4.13 H* 4.34 H* Calcium 7.8 L 7.8 L Phosphorus 4.2 Hematology 08/25/22 08/26/22 19:19 06:37 WBC 9.1 8.5 Hgb 10.9 L D 10.2 L Plt Count 147 L 145 L Assessment and Plan (1) ESRD (end stage renal disease): Status: Acute (2) HFrEF (heart failure with reduced ejection fraction): Status: Acute (3) Anemia: Status: Acute Plan usually has HD at [facility] t-t-s via dialysis tunnelled catheeter admitted with PNA known HFrEF REC HD today optimize volume status renal diet phosphate binders WAGNER Time Spent With Patient Time: Total time managing care of this patient today ____ minutes. Procedures Date of Service Date of Service: 08/26/22
[2022-08-26 11:54] VITALS: BP 133/85; PULSE 55; RESP 20; TEMP 36.6; O2SAT 92
--- NOTE | 2022-08-26 11:55 | PC.NURSE ---
PT NAPPING, ALERT TO VOICE, ASKING FOR LUNCH. DENIES PAIN AT THIS TIME. WENT FOR CT SCAN OF HEAD. POC 151.
[2022-08-26 12:01] LABS: Glucose, Whole Blood 151 mg/dL (60-115)
--- NOTE | 2022-08-26 12:54 | P.PNIM_ITS ---
Subjective Subjective Date of Service: 08/26/22 Interval History: seen and examined this morning follow up for pneumonia, respiratory failure history obtained with the assistance of a [employer] - awake and alert, but slow to respond to some questions and some answers difficult to understand does not appear to be accurate historian, difficult to obtain full history/full ROS - no family present Physical Exam Vital Signs: Vital Signs: Last Vital Signs Temp 97.9 F 08/26/22 11:54 Pulse 55 08/26/22 11:54 Resp 20 08/26/22 11:54 BP 133/85 08/26/22 11:54 Pulse Ox 92 08/26/22 11:54 O2 Del Method 08/26/22 11:54 O2 Flow Rate 2 08/26/22 11:54 Oxygen Flow Rate 2 08/25/22 17:41 BMI result Body Mass Index 25.4 Const: Other: answering some questions, following basic commands General: alert and awake Nutritional Appearance: average body habitus Orientation/consciousness: oriented to person and oriented to place Eyes: Pupils: Equal, round and reactive pupils present Chest: Other: HD catheter present Resp: Other: mild tachypnea dim at bases Cardio: Rate: regular rate Heart sounds: S1 normal heart sound present and S2 normal heart sound present GI: Inspection: No distended Palpation (GI): Soft to palpation Neuro: Other: slow to answer some questions, some words difficult to understand - no focal deficits appreciated General: oriented to person and oriented to place Cranial nerves: Yes Equal, round and reactive pupils present and Yes Midline tongue present Extrem: Other: able to move all extremities General: Yes no pedal edema Objective Data Active Medications Acetaminophen (Acetaminophen 325 Mg Tablet) 650 mg PO Q6H PRN PRN Reason: Pain, Mild (Pain Scale 1-3) Amiodarone HCl (Amiodarone Hcl 200 Mg Tablet) 200 mg PO DAILY [facility] Last Admin: 08/26/22 07:41 Dose: 200 mg Documented By: CHEVY Apixaban (Apixaban 5 Mg Tablet) 5 mg PO BID [facility] Last Admin: 08/26/22 07:41 Dose: 5 mg Documented By: CHEVY Atorvastatin Calcium (Atorvastatin Calcium 80 Mg Tablet) 80 mg PO BEDTIME [facility] Last Admin: 08/25/22 21:41 Dose: 80 mg Documented By: MADDENL Bumetanide (Bumetanide 1 Mg Tablet) 1 mg PO BIDWM [facility]; Protocol Last Admin: 08/26/22 07:42 Dose: 1 mg Documented By: CHEVY Carvedilol (Carvedilol 3.125 Mg Tablet) 3.125 mg PO BID [facility]; Protocol Last Admin: 08/26/22 07:41 Dose: 3.125 mg Documented By: CHEVY Dextrose (Dextrose 50 % 25 Gm/50 Ml Vial) 25 gm IVPUSH Q15M PRN; Protocol PRN Reason: per Hypoglycemia Standing Ord. Fluoxetine HCl (Fluoxetine Hcl 20 Mg Capsule) 20 mg PO DAILY [facility] Last Admin: 08/26/22 07:41 Dose: 20 mg Documented By: CHEVY Glucose (Glucose Gel 15 Gm Gel..Gram.) 15 gm PO Q15M PRN; Protocol PRN Reason: per Hypoglycemia Standing Ord. Ceftriaxone Sodium 1 gm/ (Sodium Chloride) 50 mls @ 100 mls/hr IV Q24H [facility] Last Admin: 08/25/22 21:24 Dose: Not Given Documented By: SHARAN Non-Admin Reason: Duplicate Order Azithromycin 500 mg/ Sodium (Chloride) 250 mls @ 125 mls/hr IV Q24H [facility] Last Infusion: 08/26/22 01:53 Dose: 0 mls/hr Documented By: SHARAN Insulin Glargine (Insulin Glargine,Hum.Rec.Anlog 100 Unit/Ml 10 Ml Vial) 10 unit SUBCUT DAILY [facility] Last Admin: 08/26/22 07:41 Dose: 10 unit Documented By: CHEVY Insulin Human Lispro (Insulin Lispro 100 Unit/Ml 3 Ml Vial) 0 unit SUBCUT QIDACHS [facility]; Protocol Last Admin: 08/26/22 11:57 Dose: Not Given Documented By: CHEVY Non-Admin Reason: No Insulin Coverage Melatonin (Melatonin 3 Mg Tablet) 6 mg PO BEDTIME PRN PRN Reason: Insomnia Ondansetron HCl (Ondansetron Hcl 4 Mg/2 Ml Vial) 4 mg IVPUSH Q8H PRN PRN Reason: Nausea and Vomiting Pharmacy Consult (Consult Rx Perform Med Rec) 1 each MISCELLANE ONCE PRN PRN Reason: Consult order Sodium Chloride (0.9 % Sodium Chloride Flush 3 Ml Syringe) 3 ml IVFLUSH QSHIFT [facility] Last Admin: 08/26/22 06:48 Dose: Not Given Documented By: CHEVY Non-Admin Reason: Med Not Available Vitamin D (Cholecalciferol (Vitamin D3) 25 Mcg Tablet) 50 mcg PO DAILY [facility] Last Admin: 08/26/22 07:41 Dose: 50 mcg Documented By: CHEVY Labs 08/26/22 06:37 08/26/22 06:36 Labs: Laboratory Results - last 24 hr 08/25/22 08/25/22 08/25/22 19:19 19:19 19:19 MCV 96.5 MCH 32.2 MCHC 33.3 RDW 17.4 H Plt Count 147 L MPV 10.5 Immature Gran % (Auto) 0.6 H Neut % (Auto) 81.0 H Lymph % (Auto) 11.5 L [place] % (Auto) 6.6 Eos % (Auto) 0.2 Baso % (Auto) 0.1 Lymph # (Auto) 1.0 L [place] # (Auto) 0.6 Eos # (Auto) 0.0 Baso # (Auto) 0.0 Abs Immat Gran (auto) 0.05 H Absolute Neuts (auto) 7.3 Absolute Nucleated RBC 0.020 H Nucleated RBC % (auto) 0.2 PT 23.4 H INR 2.0 H APTT 30.6 Anion Gap 18 Estim Creat Clear Calc 13.0 Estimated GFR 14 POC Glucose Random Glucose 145 H Lactic Acid Lactic Acid F/U @ 2Hr Lactic Acid F/U @ 4Hr Calcium 7.8 L Phosphorus 4.2 Magnesium 1.8 Total Bilirubin 1.5 H AST 209 H ALT 349 H Alkaline Phosphatase 146 H Troponin I High Sens Total Protein 6.7 Albumin 3.0 L Influenza Type A (PCR) Influenza Type B (PCR) RSV RNA Qual (PCR) SARS-CoV-2 RNA (RT-PCR) Blood Type Antibody Screen 08/25/22 08/25/22 08/25/22 19:19 19:19 19:20 MCV MCH MCHC RDW Plt Count MPV Immature Gran % (Auto) Neut % (Auto) Lymph % (Auto) [place] % (Auto) Eos % (Auto) Baso % (Auto) Lymph # (Auto) [place] # (Auto) Eos # (Auto) Baso # (Auto) Abs Immat Gran (auto) Absolute Neuts (auto) Absolute Nucleated RBC Nucleated RBC % (auto) PT INR APTT Anion Gap Estim Creat Clear Calc Estimated GFR POC Glucose Random Glucose Lactic Acid Lactic Acid F/U @ 2Hr Lactic Acid F/U @ 4Hr Calcium Phosphorus Magnesium Total Bilirubin AST ALT Alkaline Phosphatase Troponin I High Sens 114.7 H* Total Protein Albumin Influenza Type A (PCR) NEGATIVE Influenza Type B (PCR) NEGATIVE RSV RNA Qual (PCR) NEGATIVE SARS-CoV-2 RNA (RT-PCR) NEGATIVE Blood Type O Positive Antibody Screen NEGATIVE 08/25/22 08/25/22 08/25/22 19:40 21:04 22:03 MCV MCH MCHC RDW Plt Count MPV Immature Gran % (Auto) Neut % (Auto) Lymph % (Auto) [place] % (Auto) Eos % (Auto) Baso % (Auto) Lymph # (Auto) [place] # (Auto) Eos # (Auto) Baso # (Auto) Abs Immat Gran (auto) Absolute Neuts (auto) Absolute Nucleated RBC Nucleated RBC % (auto) PT INR APTT Anion Gap Estim Creat Clear Calc Estimated GFR POC Glucose 111 Random Glucose Lactic Acid 2.9 H* Lactic Acid F/U @ 2Hr 2.9 H* Lactic Acid F/U @ 4Hr Calcium Phosphorus Magnesium Total Bilirubin AST ALT Alkaline Phosphatase Troponin I High Sens Total Protein Albumin Influenza Type A (PCR) Influenza Type B (PCR) RSV RNA Qual (PCR) SARS-CoV-2 RNA (RT-PCR) Blood Type Antibody Screen 08/26/22 08/26/22 08/26/22 00:29 06:36 06:37 MCV 95.8 MCH 30.9 MCHC 32.3 RDW 17.7 H Plt Count 145 L MPV 10.1 Immature Gran % (Auto) 0.8 H Neut % (Auto) 72.0 Lymph % (Auto) 18.9 L [place] % (Auto) 7.6 Eos % (Auto) 0.5 Baso % (Auto) 0.2 Lymph # (Auto) 1.6 [place] # (Auto) 0.7 Eos # (Auto) 0.0 Baso # (Auto) 0.0 Abs Immat Gran (auto) 0.07 H Absolute Neuts (auto) 6.1 Absolute Nucleated RBC 0.020 H Nucleated RBC % (auto) 0.2 PT INR APTT Anion Gap 17 Estim Creat Clear Calc 12.4 Estimated GFR 14 POC Glucose Random Glucose 95 Lactic Acid Lactic Acid F/U @ 2Hr Lactic Acid F/U @ 4Hr 2.2 H* Calcium 7.8 L Phosphorus Magnesium Total Bilirubin AST ALT Alkaline Phosphatase Troponin I High Sens Total Protein Albumin Influenza Type A (PCR) Influenza Type B (PCR) RSV RNA Qual (PCR) SARS-CoV-2 RNA (RT-PCR) Blood Type Antibody Screen 08/26/22 08/26/22 06:52 11:53 MCV MCH MCHC RDW Plt Count MPV Immature Gran % (Auto) Neut % (Auto) Lymph % (Auto) [place] % (Auto) Eos % (Auto) Baso % (Auto) Lymph # (Auto) [place] # (Auto) Eos # (Auto) Baso # (Auto) Abs Immat Gran (auto) Absolute Neuts (auto) Absolute Nucleated RBC Nucleated RBC % (auto) PT INR APTT Anion Gap Estim Creat Clear Calc Estimated GFR POC Glucose 107 151 H Random Glucose Lactic Acid Lactic Acid F/U @ 2Hr Lactic Acid F/U @ 4Hr Calcium Phosphorus Magnesium Total Bilirubin AST ALT Alkaline Phosphatase Troponin I High Sens Total Protein Albumin Influenza Type A (PCR) Influenza Type B (PCR) RSV RNA Qual (PCR) SARS-CoV-2 RNA (RT-PCR) Blood Type Antibody Screen Assessment and Plan (1) ESRD (end stage renal disease): Status: Acute (2) Community acquired pneumonia: Status: Acute Plan This is a 67-year-old male with pertinent history of ESRD on hemodialysis, coronary artery disease with ischemic cardiomyopathy and congestive heart failure with reduced ejection fraction, insulin-dependent diabetes mellitus, paroxysmal atrial fibrillation on Eliquis, mood disorder who presents to the emergency department for evaluation of dyspnea. Acute hypoxemic respiratory failure secondary to community-acquired pneumonia: no sepsis Continue IV ceftraixone/azithromycin d#2 blood cultures pending. Monitor oxygen saturation and wean as tolerated. Currently on 2 L supplemental oxygen. elevated LFTs h/o gall stones, will obtain abdominal US hold statin trend toxic metabolic encephalopathy seems slow to respond brain CT showing chronic stroke attempted to call family for more information - no answer acute lactic acidosis r/t hypoxia not sepsis ESRD on hemodialysis: typical HD schedule TTHSa seen by nephrology, plan for HD today Chronic HFrEF Continue home Bumex, beta-benjamin Insulin-dependent diabetes mellitus: Continue basal regimen Follow POCs, with sliding scale insulin. Elevated troponin type 2 due to increased demand and CKD lower then previous Paroxysmal atrial fibrillation continue Eliquis and amiodarone Mood disorder Continue fluoxetine Chronic normocytic anemia: H/H at baseline Hemoglobin above transfusion threshold DVT prophylaxis: Eliquis Full code Low-salt diet attending - dr. evangelista patient requires ongoing inpatient hospitalization for IV antibiotics and supplemental oxygen Time Spent With Patient Time: Total time managing care of this patient today ____ minutes. Quality Stroke Does the patient have a stroke diagnosis?: No VTE Prior VTE?: No VTE Risk Level:: Medical - moderate - high VTE Device Contraindication: Treatment Not Indicated VTE Drug Contraindication: N/A - Med Ordered
[2022-08-26 13:34] LABS: Alanine Aminotransferase 296 U/L (0-40); Albumin Level 2.7 g/dL (3.5-5.0); Alkaline Phosphatase 119 U/L (39-117); Aspartate Amino Transferase 174 U/L (5-37); Bilirubin Direct 0.7 mg/dL (0.0-0.5); Bilirubin Total 1.4 mg/dL (0.0-1.0); Total Protein 6.3 g/dL (6.5-8.0)
[2022-08-26 18:19] LABS: Glucose, Whole Blood 97 mg/dL (60-115)
--- NOTE | 2022-08-26 19:10 | MHC.CM.PN ---
CM attempted to meet with patient to discuss d/c planning at 1400, but patient is in dialysis.
[2022-08-26 19:42] VITALS: BP 142/81; PULSE 52; RESP 10; TEMP 36.7; O2SAT 98
--- NOTE | 2022-08-26 20:13 | MHC.CM.PN ---
CM attempted to meet with patient with medical laboratory technicians, as pt is [place] speaking. Pt is unable to answer simple question as to where he lives. Pt had dialysis today, thinks he had it yesterday. CM told patient that I would call his sister?HCP Alysia Nunez ([phone]). Alysia is [place] speaking only. Called with sewer pipe offbearer, message left with request to call CM in regards to her brother.
--- NOTE | 2022-08-26 20:45 | PC.NURSE ---
Pt has had a bed since before 190. This RN attempted to call med surg at the beginning of shift, was told that nurse would call back. This RN has made two more attempts to call med surg with no response.
[2022-08-26 21:01] VITALS: BP 152/85; PULSE 58; RESP 18; TEMP 37; O2SAT 91
[2022-08-26] MEDS: cefTRIAXone sodium 1 GM in 0.9 % Sodium Chloride 50 ML IV (21:11)
[2022-08-26 21:17] VITALS: BMI 22.6
[2022-08-26] MEDS: Azithromycin 500 MG in 0.9 % Sodium Chloride 250 ML 125 MG IV (21:36)
[2022-08-26 22:08] LABS: Glucose, Whole Blood 114 mg/dL (60-115)
[2022-08-27] MEDS: 0.9 % Sodium Chloride Flush 3 ML SYRINGE IVFLUSH ×3 (01:14→18:05)
[2022-08-27 04:00] VITALS: BP 131/80; PULSE 61; RESP 18; TEMP 36.4; O2SAT 98
[2022-08-27 06:44] LABS: Alanine Aminotransferase 233 U/L (0-40); Alkaline Phosphatase 121 U/L (39-117); Aspartate Amino Transferase 95 U/L (5-37); Bilirubin Direct 0.5 mg/dL (0.0-0.5); Blood Urea Nitrogen 20 mg/dL (9-16); Creatinine Clr Calc Pharmacy 14.9; Estimated Glomerular Filt Rate 17; Glucose Random 137 mg/dL (60-115); Total Protein 6.9 g/dL (6.5-8.0)
[2022-08-27 07:17] LABS: Anion Gap 18 (12-20); Carbon Dioxide 18 mmol/L (22-29); Chloride 103 mmol/L (96-108); Potassium 3.6 mmol/L (3.3-5.1); Sodium 135 mmol/L (135-145)
[2022-08-27 07:31] LABS: Glucose, Whole Blood 123 mg/dL (60-115)
[2022-08-27 07:58] VITALS: BP 146/84; PULSE 59; RESP 17; TEMP 36.5; O2SAT 98
--- NOTE | 2022-08-27 08:58 | HE.PHANOTE ---
RE: laverne Gave loading dose of 1250mg X1 on 08/27/22. Spoke to nurse Tamara about HD schedule, confirmed TuThSa. Will continue to monitor; level put in for 08/28 @1600 pending dialysis treatment.
[2022-08-27] MEDS: FLUoxetine HCl 20 MG CAPSULE PO (09:48)
[2022-08-27] MEDS: vancomycin HCL 1,250 MG in 0.9 % Sodium Chloride 250 ML 166.67 MG IV (09:48)
[2022-08-27] MEDS: carvediloL 3.125 MG TABLET PO ×2 (09:48→21:20)
[2022-08-27] MEDS: Bumetanide 1 MG TABLET PO ×2 (09:48→18:05)
[2022-08-27] MEDS: Apixaban 5 MG TABLET PO (09:48)
[2022-08-27] MEDS: Amiodarone HCL 200 MG TABLET PO (09:48)
[2022-08-27] MEDS: Cholecalciferol (Vitamin D3) 25 MCG TABLET 50 MCG PO (09:48)
--- NOTE | 2022-08-27 09:52 | PM.PNNEP ---
Subjective Subjective Date of Service: 08/27/22 Interval history: seen and examined had HD yesterday lethargic Physical Exam Vital Signs: Vital Signs: Last Vital Signs Temp 97.7 F 08/27/22 07:58 Pulse 59 08/27/22 07:58 Resp 17 08/27/22 07:58 BP 146/84 H 08/27/22 07:58 Pulse Ox 98 08/27/22 07:58 O2 Del Method 08/27/22 07:58 O2 Flow Rate 2.0 08/27/22 07:58 Oxygen Flow Rate 2 08/25/22 17:41 BMI result Body Mass Index 22.6 Const: General: no acute distress HEENT: Head: Yes normocephalic and Yes atraumatic Neck: Neck: Yes supple Resp: Auscultation: diminished lung sounds Cardio: Heart sounds: S1 normal heart sound present and S2 normal heart sound present GI: Palpation (GI): Soft to palpation and nontender Extrem: General: Yes no pedal edema Objective Data Labs 08/26/22 06:37 08/27/22 05:38 Labs: Laboratory Results - last 24 hr 08/26/22 08/26/22 08/26/22 06:36 11:53 18:15 Sodium Potassium Chloride Carbon Dioxide Anion Gap BUN Creatinine Estim Creat Clear Calc Estimated GFR POC Glucose 151 H 97 Random Glucose Calcium Total Bilirubin 1.4 H Direct Bilirubin 0.7 H AST 174 H ALT 296 H Alkaline Phosphatase 119 H Total Protein 6.3 L Albumin 2.7 L 08/26/22 08/27/22 08/27/22 21:09 05:38 07:27 Sodium 135 Potassium 3.6 Chloride 103 Carbon Dioxide 18 L Anion Gap 18 BUN 20 H Creatinine 3.60 H Estim Creat Clear Calc 14.9 Estimated GFR 17 POC Glucose 114 123 H Random Glucose 137 H Calcium 8.0 L Total Bilirubin 1.0 Direct Bilirubin 0.5 AST 95 H ALT 233 H Alkaline Phosphatase 121 H Total Protein 6.9 Albumin 3.0 L Microbiology Microbiology Results: Microbiology 08/25/22 19:40 Blood - Venous Blood Culture - Preliminary Prelim: GPC Gram Stain only 08/25/22 19:40 Blood - Venous Blood Culture - Preliminary Prelim: GPC Gram Stain only Procedures Date of Service Date of Service: 08/27/22 Assessment & Plan Assessment and plan (1) ESRD (end stage renal disease): Status: Acute (2) HFrEF (heart failure with reduced ejection fraction): Status: Acute (3) Anemia: Status: Acute Plan s/p HD yesterday usually has HD at [place] [facility] t-t-s via dialysis tunnelled catheeter admitted with PNA known HFrEF REC HD tomorrow renal diet phosphate binders WAGNER Abx Time Spent With Patient Time: Total time managing care of this patient today ____ minutes. Progress Note: Quality Stroke Does the patient have a stroke diagnosis?: No
[2022-08-27 11:24] LABS: Glucose, Whole Blood 110 mg/dL (60-115)
--- NOTE | 2022-08-27 13:23 | MHC.CLN ---
NUTRITION DIET CHANGED PER DIABETIC, RENAL PARAMETERS WITH DIALYSIS. DIET=DIABETIC 1800 KCAL, 2 GRAM SODIUM, LOW POTASSIUM, LOW PHOSPHORUS.
[2022-08-27] MEDS: Piperacillin Sodium/Tazobactam 4.5 GM in 0.9 % Sodium Chloride 100 ML IV ×2 (13:35→23:46)
--- NOTE | 2022-08-27 14:15 | MHC.CM.PN ---
with interpertator pt states he lives alone has cca/rn goes to [facility] via [facility] he has a ride home when dcd
[2022-08-27 14:25] VITALS: BMI 22.6
--- NOTE | 2022-08-27 14:44 | PM.CNGS ---
History of Present Illness Consult details Consult date: 08/27/22 <Marylou Simmons PA-C - Last Filed: 08/27/22 15:00> Requesting physician: Maritza Gregg <Marylou Simmons PA-C - Last Filed: 08/27/22 15:00> Narrative: This is a 67-year-old male with pertinent history of ESRD on hemodialysis, coronary artery disease with ischemic cardiomyopathy and congestive heart failure with reduced ejection fraction, insulin-dependent diabetes mellitus, paroxysmal atrial fibrillation on Eliquis, mood disorder who presented to the emergency department for evaluation of dyspnea. The patient was found to be hypoxemic and imaging showed a left-sided consolidation. He was admitted to medicine for pneumonia and is on zosyn and vanco. He was found to have LFTs and subsequent ABD US was obtained which showed gallstones, gallbladder wall thickening. Surgery was consulted for possible cholecystitis. Difficult to obtain full history/full ROS- patient poor historian and difficult to understand. Denies abd pain. <Marylou Simmons PA-C - Last Filed: 08/27/22 15:00> [facility] Past Medical History Medical History: Medical History (Updated 08/27/22 @ 16:00 by Rika Quijano MD) Anemia Atherosclerotic cardiovascular disease Bacteremia due to Staphylococcus Chronic heart failure with preserved ejection fraction Chronic kidney disease, unspecified CKD (chronic kidney disease) ESRD (end stage renal disease) on dialysis Essential hypertension PAF (paroxysmal atrial fibrillation) Type 2 diabetes mellitus with unspecified complications <Marylou Simmons PA-C - Last Filed: 08/27/22 15:00> Family History Family History: Family History Father Esophageal cancer Mother Diabetes Hypertension <DELBERT Landa Last Filed: 08/27/22 15:00> Surgical History Surgical History: Surgical History History of cardiac catheterization (~07/18/20) History of colon resection <DELBERT Landa Last Filed: 08/27/22 15:00> Social History Social History: Social History Household Members: None Housing: Apartment Housing Other:: elderly housing Do you presently have visiting nurse or other home services: Yes Unable to assess alcohol history related to: Unknown Alcohol intake: never Patient Tobacco Use Status: Never used Tobacco Second Hand Smoke Exposure: No Advance Directives Date on File: 09/21/21 service: No Current occupational status: unemployed <Marylou Simmons PA-C - Last Filed: 08/27/22 15:00> Meds Allergies/Adverse reactions: Allergies Allergy/AdvReac Type Severity Reaction Status Date / Time No Known Allergies Allergy Verified 04/08/22 17:45 <Marylou Simmons PA-C - Last Filed: 08/27/22 15:00> Active Medications: Current Medications Acetaminophen (Acetaminophen 325 Mg Tablet) 650 mg PO Q6H PRN PRN Reason: Pain, Mild (Pain Scale 1-3) Amiodarone HCl (Amiodarone Hcl 200 Mg Tablet) 200 mg PO DAILY [facility] Last Admin: 08/27/22 09:48 Dose: 200 mg Apixaban (Apixaban 2.5 Mg Tablet) 2.5 mg PO BID [facility] Atorvastatin Calcium (Atorvastatin Calcium 80 Mg Tablet) 80 mg PO BEDTIME [facility] Last Admin: 08/25/22 21:41 Dose: 80 mg Bumetanide (Bumetanide 1 Mg Tablet) 1 mg PO BIDWM [facility]; Protocol Last Admin: 08/27/22 09:48 Dose: 1 mg Carvedilol (Carvedilol 3.125 Mg Tablet) 3.125 mg PO BID [facility]; Protocol Last Admin: 08/27/22 09:48 Dose: 3.125 mg Dextrose (Dextrose 50 % 25 Gm/50 Ml Vial) 25 gm IVPUSH Q15M PRN; Protocol PRN Reason: per Hypoglycemia Standing Ord. Fluoxetine HCl (Fluoxetine Hcl 20 Mg Capsule) 20 mg PO DAILY [facility] Last Admin: 08/27/22 09:48 Dose: 20 mg Glucose (Glucose Gel 15 Gm Gel..Gram.) 15 gm PO Q15M PRN; Protocol PRN Reason: per Hypoglycemia Standing Ord. Vancomycin HCl 500 mg/ Sodium (Chloride) 110 mls @ 110 mls/hr IV TuThSa@1800 [facility] Piperacillin Sod/Tazobactam (Sod 4.5 gm/ Sodium Chloride) 100 mls @ 200 mls/hr IV Q12H [facility] Last Admin: 08/27/22 13:35 Dose: 200 mls/hr Insulin Glargine (Insulin Glargine,Hum.Rec.Anlog 100 Unit/Ml 10 Ml Vial) 10 unit SUBCUT DAILY [facility] Last Admin: 08/27/22 09:51 Dose: Not Given Insulin Human Lispro (Insulin Lispro 100 Unit/Ml 3 Ml Vial) 0 unit SUBCUT QIDACHS [facility]; Protocol Last Admin: 08/27/22 13:36 Dose: Not Given Melatonin (Melatonin 3 Mg Tablet) 6 mg PO BEDTIME PRN PRN Reason: Insomnia Ondansetron HCl (Ondansetron Hcl 4 Mg/2 Ml Vial) 4 mg IVPUSH Q8H PRN PRN Reason: Nausea and Vomiting Pharmacy Consult (Consult Rx Perform Med Rec) 1 each MISCELLANE ONCE PRN PRN Reason: Consult order Pharmacy Consult (Consult Rx Vancomycin Dosing) 1 each MISCELLANE DAILY PRN PRN Reason: Consult order Sodium Chloride (0.9 % Sodium Chloride Flush 3 Ml Syringe) 3 ml IVFLUSH QSHIFT [facility] Last Admin: 08/27/22 09:49 Dose: 3 ml Vitamin D (Cholecalciferol (Vitamin D3) 25 Mcg Tablet) 50 mcg PO DAILY [facility] Last Admin: 08/27/22 09:48 Dose: 50 mcg <Marylou Simmons PA-C - Last Filed: 08/27/22 15:00> Home medications: Home Medications Medication Instructions Recorded Confirmed Last Taken Type amiodarone 200 mg tablet 1 tab PO DAILY 02/20/22 08/25/22 08/25/22 History apixaban 5 mg tablet (Eliquis) 1 tab PO BID 02/20/22 08/25/22 08/25/22 History bumetanide 1 mg tablet 1 tab PO BIDWM 02/20/22 08/25/22 08/25/22 History carvedilol 3.125 mg tablet 1 tab PO BID 02/20/22 08/25/22 08/25/22 History cholecalciferol (vitamin D3) 50 1 tab PO DAILY 02/20/22 08/25/22 08/25/22 History mcg (2,000 unit) tablet insulin aspart U-100 100 unit/mL See Protocol subcut QIDACHS 02/20/22 08/25/22 08/25/22 History (3 mL) subcutaneous pen (Novolog FlexPen U-100 Insulin aspart) insulin glargine 100 unit/mL (3 12 unit subcut DAILY 02/20/22 08/25/22 08/25/22 History mL) subcutaneous pen (Lantus Solostar U-100 Insulin) fluoxetine 20 mg capsule 1 cap PO DAILY 05/01/22 08/25/22 08/25/22 History <Marylou Simmons PA-C - Last Filed: 08/27/22 15:00> Physical Exam Vital Signs: Vital Signs: Last Vital Signs Temp 97.7 F 08/27/22 07:58 Pulse 59 08/27/22 07:58 Resp 17 08/27/22 07:58 BP 146/84 H 08/27/22 07:58 Pulse Ox 98 08/27/22 07:58 O2 Del Method 08/27/22 07:58 O2 Flow Rate 2.0 08/27/22 07:58 Oxygen Flow Rate 2 08/25/22 17:41 BMI result Body Mass Index 22.6 <DELBERT Landa Last Filed: 08/27/22 15:00> Const: General: comfortable, no acute distress and alert <DELBERT Landa Last Filed: 08/27/22 15:00> Nutritional Appearance: thin <DELBERT Landa Last Filed: 08/27/22 15:00> Resp: Effort & Inspection: normal respiratory effort <DELBERT Landa Last Filed: 08/27/22 15:00> GI: Inspection: No distended <DELBERT Landa Last Filed: 08/27/22 15:00> Palpation (GI): Soft to palpation, nontender, no guarding and not rigid <DELBERT Landa Last Filed: 08/27/22 15:00> Skin: General skin exam: no rashes or lesions noted <DELBERT Landa Last Filed: 08/27/22 15:00> Neuro: General: moves all extremities <DELBERT Landa Last Filed: 08/27/22 15:00> Results Labs Result diagrams: 08/26/22 06:37 08/27/22 05:38 <Marylou Simmons PA-C - Last Filed: 08/27/22 15:00> Labs: Abnormal lab results 08/27/22 08/27/22 Range/Units 05:38 07:27 Carbon Dioxide 18 L (22-29) mmol/L BUN 20 H (9-16) mg/dL Creatinine 3.60 H (0.5-1.4) mg/dL POC Glucose 123 H (60-115) mg/dL Random Glucose 137 H (60-115) mg/dL Calcium 8.0 L (8.4-10.2) mg/dL AST 95 H (5-37) U/L ALT 233 H (0-40) U/L Alkaline Phosphatase 121 H (39-117) U/L Albumin 3.0 L (3.5-5.0) g/dL BMP 08/27/22 05:38 Sodium 135 Potassium 3.6 Chloride 103 Carbon Dioxide 18 L BUN 20 H Creatinine 3.60 H Calcium 8.0 L Liver Function 08/27/22 Range/Units 05:38 Total Bilirubin 1.0 (0.0-1.0) mg/dL Direct Bilirubin 0.5 (0.0-0.5) mg/dL AST 95 H (5-37) U/L ALT 233 H (0-40) U/L Alkaline Phosphatase 121 H (39-117) U/L Albumin 3.0 L (3.5-5.0) g/dL All other labs normal. <Marylou Simmons PA-C - Last Filed: 08/27/22 15:00> Assessment and Plan (1) Gallstones: Status: Acute <Marylou Simmons PA-C - Last Filed: 08/27/22 15:00> patient denies abdominal pain exam does not reveal any tenderness on the right upper frequent no Silverman sign HIDA scan was visualization of the gallbladder no cholecystitis management as per hospitalist service seen and examined independently <Nitish Mcmahan MD - Last Filed: 08/27/22 17:51> 67 year old male admitted for PNA found to have elevated LFTs, gallbladder wall thickening with concern for possible cholecystitis. Do not feel the wall thickening is secondary to cholecystitis. He has a very benign abd exam and is completely nontender with no leukocytosis. He also has previous imaging demonstrating gallbladder wall thickening. HIDA scan has also been performed which shows visualization of the gallbladder and is evidence against acute cholecystitis. Case discussed with Dr. Mcmahan. <Marylou Simmons PA-C - Last Filed: 08/27/22 15:00> Time Spent With Patient Time: Total time managing care of this patient today ____ minutes. <Marylou Simmons PA-C - Last Filed: 08/27/22 15:00> Procedures Date of Service Date of Service: 08/27/22 <Marylou Simmons PA-C - Last Filed: 08/27/22 15:00>
--- NOTE | 2022-08-27 14:45 | P.PNIM_ITS ---
Subjective Subjective Date of Service: 08/27/22 Interval History: seen and examined this morning follow up for pneumonia still seems somewhat confused this morning, but able to answer more questions not a reliable historian Cardiovascular Cardiovascular: Reports chest pain and Reports palpitations Gastrointestinal Gastrointestinal: Reports abdominal pain Endocrine Endocrine: Reports palpitations Physical Exam Vital Signs: Vital Signs: Last Vital Signs Temp 97.7 F 08/27/22 07:58 Pulse 59 08/27/22 07:58 Resp 17 08/27/22 07:58 BP 146/84 H 08/27/22 07:58 Pulse Ox 98 08/27/22 07:58 O2 Del Method 08/27/22 07:58 O2 Flow Rate 2.0 08/27/22 07:58 Oxygen Flow Rate 2 08/25/22 17:41 BMI result Body Mass Index 22.6 Const: General: cooperative, comfortable, no acute distress, alert and awake Nutritional Appearance: average body habitus Orientation/consciousness: oriented to person Chest: Other: HD catheter present Resp: Effort & Inspection: normal respiratory effort, able to speak in complete sentences, no respiratory distress and no use of accessory muscles Cardio: Rate: regular rate Heart sounds: S1 normal heart sound present and S2 normal heart sound present GI: Other: denies abdominal pain, but seems to have mild tenderness RUQ Inspection: No distended Palpation (GI): Soft to palpation Neuro: Other: face symmetrical, tongue midline, hand grasp equal, able to move all extremities General: oriented to person Extrem: General: Yes no pedal edema Objective Data Active Medications Acetaminophen (Acetaminophen 325 Mg Tablet) 650 mg PO Q6H PRN PRN Reason: Pain, Mild (Pain Scale 1-3) Amiodarone HCl (Amiodarone Hcl 200 Mg Tablet) 200 mg PO DAILY [facility] Last Admin: 08/27/22 09:48 Dose: 200 mg Documented By: MICKEY Apixaban (Apixaban 2.5 Mg Tablet) 2.5 mg PO BID [facility] Atorvastatin Calcium (Atorvastatin Calcium 80 Mg Tablet) 80 mg PO BEDTIME [facility] Last Admin: 08/25/22 21:41 Dose: 80 mg Documented By: ROCDENKiesha Bumetanide (Bumetanide 1 Mg Tablet) 1 mg PO BIDWM [facility]; Protocol Last Admin: 08/27/22 09:48 Dose: 1 mg Documented By: MICKEY Carvedilol (Carvedilol 3.125 Mg Tablet) 3.125 mg PO BID [facility]; Protocol Last Admin: 08/27/22 09:48 Dose: 3.125 mg Documented By: MICKEY Dextrose (Dextrose 50 % 25 Gm/50 Ml Vial) 25 gm IVPUSH Q15M PRN; Protocol PRN Reason: per Hypoglycemia Standing Ord. Fluoxetine HCl (Fluoxetine Hcl 20 Mg Capsule) 20 mg PO DAILY [facility] Last Admin: 08/27/22 09:48 Dose: 20 mg Documented By: MICKEY Glucose (Glucose Gel 15 Gm Gel..Gram.) 15 gm PO Q15M PRN; Protocol PRN Reason: per Hypoglycemia Standing Ord. Vancomycin HCl 500 mg/ Sodium (Chloride) 110 mls @ 110 mls/hr IV TuThSa@1800 [facility] Piperacillin Sod/Tazobactam (Sod 4.5 gm/ Sodium Chloride) 100 mls @ 200 mls/hr IV Q12H [facility] Last Admin: 08/27/22 13:35 Dose: 200 mls/hr Documented By: MICKEY Insulin Glargine (Insulin Glargine,Hum.Rec.Anlog 100 Unit/Ml 10 Ml Vial) 10 unit SUBCUT DAILY [facility] Last Admin: 08/27/22 09:51 Dose: Not Given Documented By: MICKEY Non-Admin Reason: NPO Insulin Human Lispro (Insulin Lispro 100 Unit/Ml 3 Ml Vial) 0 unit SUBCUT QIDACHS [facility]; Protocol Last Admin: 08/27/22 13:36 Dose: Not Given Documented By: MICKEY Non-Admin Reason: No Insulin Coverage Melatonin (Melatonin 3 Mg Tablet) 6 mg PO BEDTIME PRN PRN Reason: Insomnia Ondansetron HCl (Ondansetron Hcl 4 Mg/2 Ml Vial) 4 mg IVPUSH Q8H PRN PRN Reason: Nausea and Vomiting Pharmacy Consult (Consult Rx Perform Med Rec) 1 each MISCELLANE ONCE PRN PRN Reason: Consult order Pharmacy Consult (Consult Rx Vancomycin Dosing) 1 each MISCELLANE DAILY PRN PRN Reason: Consult order Sodium Chloride (0.9 % Sodium Chloride Flush 3 Ml Syringe) 3 ml IVFLUSH QSHIFT [facility] Last Admin: 08/27/22 09:49 Dose: 3 ml Documented By: MICKEY Vitamin D (Cholecalciferol (Vitamin D3) 25 Mcg Tablet) 50 mcg PO DAILY [facility] Last Admin: 08/27/22 09:48 Dose: 50 mcg Documented By: MICKEY Labs 08/26/22 06:37 08/27/22 05:38 Labs: Laboratory Results - last 24 hr 08/26/22 08/26/22 08/27/22 18:15 21:09 05:38 Anion Gap 18 Estim Creat Clear Calc 14.9 Estimated GFR 17 POC Glucose 97 114 Random Glucose 137 H Calcium 8.0 L Total Bilirubin 1.0 Direct Bilirubin 0.5 AST 95 H ALT 233 H Alkaline Phosphatase 121 H Total Protein 6.9 Albumin 3.0 L 08/27/22 08/27/22 07:27 11:19 Anion Gap Estim Creat Clear Calc Estimated GFR POC Glucose 123 H 110 Random Glucose Calcium Total Bilirubin Direct Bilirubin AST ALT Alkaline Phosphatase Total Protein Albumin Microbiology Microbiology Results: Microbiology 08/25/22 19:40 Blood Culture - Preliminary Blood - Venous Prelim: GPC Gram Stain only 08/25/22 19:40 Blood Culture - Preliminary Blood - Venous Prelim: GPC Gram Stain only Assessment and Plan (1) Community acquired pneumonia: Status: Acute Plan This is a 67-year-old male with pertinent history of ESRD on hemodialysis, coronary artery disease with ischemic cardiomyopathy and congestive heart failure with reduced ejection fraction, insulin-dependent diabetes mellitus, paroxysmal atrial fibrillation on Eliquis, mood disorder who presents to the em ergency department for evaluation of dyspnea. Acute hypoxemic respiratory failure secondary to community-acquired pneumonia: no sepsis will change abx to vanc/zosyn to cover possible GB pathology and + blood cultures Monitor oxygen saturation and wean as tolerated. Currently on 2 L supplemental oxygen. GPC bacteremia 2/2 BCx growing GPC started on vanco follow final culture results ID consult pending depending on final culture results - may need HD catheter removed elevated LFTs abdominal US showing concern over acute cholecystitis, will obtain HIDA scan hold statin surgical consult pending LFTs trending down toxic metabolic encephalopathy seems a little better today brain CT showing chronic stroke, pt denies h/o cva, but not a great historian attempted to call family for more information again. one number not in service, left message again for Alysia Nunez listed as HCP acute lactic acidosis r/t hypoxia not sepsis ESRD on hemodialysis: typical HD schedule TTHSa via HD catheter nephrology following Chronic HFrEF Continue home Bumex, beta-benjamin Insulin-dependent diabetes mellitus: Continue basal regimen Follow POCs, with sliding scale insulin. Elevated troponin type 2 due to increased demand and CKD lower then previous Paroxysmal atrial fibrillation continue Eliquis and amiodarone Mood disorder Continue fluoxetine Chronic normocytic anemia: H/H at baseline Hemoglobin above transfusion threshold DVT prophylaxis: Eliquis Full code Low-salt diet attending - dr. evangelista patient requires ongoing inpatient hospitalization for IV antibiotics and supplemental oxygen, surgical evaluation Time Spent With Patient Time: Total time managing care of this patient today ____ minutes. Quality Stroke Does the patient have a stroke diagnosis?: No VTE Prior VTE?: No VTE Risk Level:: Medical - moderate - high VTE Device Contraindication: Treatment Not Indicated VTE Drug Contraindication: N/A - Med Ordered
[2022-08-27 15:23] VITALS: BP 131/69; PULSE 56; RESP 16; TEMP 36; O2SAT 92
--- NOTE | 2022-08-27 15:56 | P.CNID_ITS ---
History of Present Illness Data of Consult Service Date: 08/27/22 Requesting physician: Maritza Gregg Primary Care Provider: MD ANGELA Banerjee Reason for consult: bacteremia He presents with shortness of breath day of admission and weakness. He has no chills and is not on oxygen at this time. He has two blood cultures gram positive cocci. [facility] Past Medical History Medical History (Updated 08/27/22 @ 16:00 by Rika Quijano MD) Anemia Atherosclerotic cardiovascular disease Bacteremia due to Staphylococcus Chronic heart failure with preserved ejection fraction Chronic kidney disease, unspecified CKD (chronic kidney disease) ESRD (end stage renal disease) on dialysis Essential hypertension PAF (paroxysmal atrial fibrillation) Type 2 diabetes mellitus with unspecified complications Family History Family History Father Esophageal cancer Mother Diabetes Hypertension Family history: reviewed and not pertinent Surgical History Surgical History History of cardiac catheterization (~07/18/20) History of colon resection Social History Social History Household Members: None Housing: Apartment Housing Other:: elderly housing Do you presently have visiting nurse or other home services: Yes Unable to assess alcohol history related to: Unknown Alcohol intake: never Patient Tobacco Use Status: Never used Tobacco Second Hand Smoke Exposure: No Advance Directives Date on File: 09/21/21 service: No Current occupational status: unemployed Meds Allergies Allergy/AdvReac Type Severity Reaction Status Date / Time No Known Allergies Allergy Verified 04/08/22 17:45 Active Medications: Current Medications Acetaminophen (Acetaminophen 325 Mg Tablet) 650 mg PO Q6H PRN PRN Reason: Pain, Mild (Pain Scale 1-3) Amiodarone HCl (Amiodarone Hcl 200 Mg Tablet) 200 mg PO DAILY [facility] Last Admin: 08/27/22 09:48 Dose: 200 mg Apixaban (Apixaban 2.5 Mg Tablet) 2.5 mg PO BID [facility] Atorvastatin Calcium (Atorvastatin Calcium 80 Mg Tablet) 80 mg PO BEDTIME [facility] Last Admin: 08/25/22 21:41 Dose: 80 mg Bumetanide (Bumetanide 1 Mg Tablet) 1 mg PO BIDWM [facility]; Protocol Last Admin: 08/27/22 09:48 Dose: 1 mg Carvedilol (Carvedilol 3.125 Mg Tablet) 3.125 mg PO BID [facility]; Protocol Last Admin: 08/27/22 09:48 Dose: 3.125 mg Dextrose (Dextrose 50 % 25 Gm/50 Ml Vial) 25 gm IVPUSH Q15M PRN; Protocol PRN Reason: per Hypoglycemia Standing Ord. Fluoxetine HCl (Fluoxetine Hcl 20 Mg Capsule) 20 mg PO DAILY [facility] Last Admin: 08/27/22 09:48 Dose: 20 mg Glucose (Glucose Gel 15 Gm Gel..Gram.) 15 gm PO Q15M PRN; Protocol PRN Reason: per Hypoglycemia Standing Ord. Vancomycin HCl 500 mg/ Sodium (Chloride) 110 mls @ 110 mls/hr IV TuThSa@1800 [facility] Piperacillin Sod/Tazobactam (Sod 4.5 gm/ Sodium Chloride) 100 mls @ 200 mls/hr IV Q12H [facility] Last Infusion: 08/27/22 15:03 Dose: Infused Insulin Glargine (Insulin Glargine,Hum.Rec.Anlog 100 Unit/Ml 10 Ml Vial) 10 unit SUBCUT DAILY [facility] Last Admin: 08/27/22 09:51 Dose: Not Given Insulin Human Lispro (Insulin Lispro 100 Unit/Ml 3 Ml Vial) 0 unit SUBCUT QIDACHS [facility]; Protocol Last Admin: 08/27/22 13:36 Dose: Not Given Melatonin (Melatonin 3 Mg Tablet) 6 mg PO BEDTIME PRN PRN Reason: Insomnia Ondansetron HCl (Ondansetron Hcl 4 Mg/2 Ml Vial) 4 mg IVPUSH Q8H PRN PRN Reason: Nausea and Vomiting Pharmacy Consult (Consult Rx Perform Med Rec) 1 each MISCELLANE ONCE PRN PRN Reason: Consult order Pharmacy Consult (Consult Rx Vancomycin Dosing) 1 each MISCELLANE DAILY PRN PRN Reason: Consult order Sodium Chloride (0.9 % Sodium Chloride Flush 3 Ml Syringe) 3 ml IVFLUSH QSHIFT [facility] Last Admin: 08/27/22 09:49 Dose: 3 ml Vitamin D (Cholecalciferol (Vitamin D3) 25 Mcg Tablet) 50 mcg PO DAILY [facility] Last Admin: 08/27/22 09:48 Dose: 50 mcg Home Medications Medication Instructions Recorded Confirmed Last Taken Type amiodarone 200 mg tablet 1 tab PO DAILY 02/20/22 08/25/22 08/25/22 History apixaban 5 mg tablet (Eliquis) 1 tab PO BID 02/20/22 08/25/22 08/25/22 History bumetanide 1 mg tablet 1 tab PO BIDWM 02/20/22 08/25/22 08/25/22 History carvedilol 3.125 mg tablet 1 tab PO BID 02/20/22 08/25/22 08/25/22 History cholecalciferol (vitamin D3) 50 1 tab PO DAILY 02/20/22 08/25/22 08/25/22 Hist ory mcg (2,000 unit) tablet insulin aspart U-100 100 unit/mL See Protocol subcut QIDACHS 02/20/22 08/25/22 08/25/22 History (3 mL) subcutaneous pen (Novolog FlexPen U-100 Insulin aspart) insulin glargine 100 unit/mL (3 12 unit subcut DAILY 02/20/22 08/25/22 08/25/22 History mL) subcutaneous pen (Lantus Solostar U-100 Insulin) fluoxetine 20 mg capsule 1 cap PO DAILY 05/01/22 08/25/22 08/25/22 History Physical Exam Vital Signs: Vital Signs: Last Vital Signs Temp 96.8 F 08/27/22 15:23 Pulse 56 08/27/22 15:23 Resp 16 08/27/22 15:23 BP 131/69 08/27/22 15:23 Pulse Ox 92 08/27/22 15:23 O2 Del Method 08/27/22 15:23 O2 Flow Rate 2.0 08/27/22 07:58 Oxygen Flow Rate 2 08/25/22 17:41 BMI result Body Mass Index 22.6 Const: General: cooperative HEENT: Head: Yes normal to inspection Face and sinus: Yes normal facial exam Mouth: Normal oral and palatal mucosa present Teeth and gingiva: dentition normal Eyes: General: appearance normal, both eyes and all related structures Pupils: Equal, round and reactive pupils present Resp: Effort & Inspection: normal respiratory effort Cardio: Rate: regular rate Rhythm: regular rhythm GI: Palpation (GI): Soft to palpation and nontender : General: Yes no CVA tenderness Back/Spine/Pelvis: Back: no CVA tenderness Skin: General skin exam: no rashes or lesions noted Neuro: General: moves all extremities Cranial nerves: Yes Equal, round and reactive pupils present Extrem: General: Yes normal to inspection Psych: Appearance: grossly normal Results Labs 08/26/22 06:37 08/27/22 05:38 Labs: BMP 08/27/22 05:38 Sodium 135 Potassium 3.6 Chloride 103 Carbon Dioxide 18 L BUN 20 H Creatinine 3.60 H Calcium 8.0 L Liver Function 08/27/22 Range/Units 05:38 Total Bilirubin 1.0 (0.0-1.0) mg/dL Direct Bilirubin 0.5 (0.0-0.5) mg/dL AST 95 H (5-37) U/L ALT 233 H (0-40) U/L Alkaline Phosphatase 121 H (39-117) U/L Albumin 3.0 L (3.5-5.0) g/dL Microbiology Microbiology Results: Microbiology 08/25/22 19:40 Blood - Venous Blood Culture - Preliminary Prelim: GPC Gram Stain only 08/25/22 19:40 Blood - Venous Blood Culture - Preliminary Prelim: GPC Gram Stain only Assessment and Plan (1) Bacteremia due to Staphylococcus: Status: Acute He has possible graft as source of bacteremia. Less likely are lung Gallbladder doesnt appear to be source. Plan Need to check nares for MRSA to see if left lung is source of bacteremia If not lung source and there is staph aureus bacteremia need to remove dialysis catheter. Time Spent With Patient Time: Total time managing care of this patient today ____ minutes.
[2022-08-27 16:39] LABS: Glucose, Whole Blood 145 mg/dL (60-115)
[2022-08-27 18:41] VITALS: BP 129/70; PULSE 53; RESP 17; TEMP 36.4; O2SAT 92
[2022-08-27 20:42] LABS: MRSA Nasal PCR NEGATIVE (Negative); SA Nasal PCR NEGATIVE (Negative)
[2022-08-27 20:46] LABS: Glucose, Whole Blood 193 mg/dL (60-115)
[2022-08-27] MEDS: Apixaban 2.5 MG TABLET PO (21:20)
[2022-08-27] MEDS: Insulin Lispro 100 UNIT/ML 3 ML VIAL SUBCUT (21:20)
[2022-08-28] MEDS: 0.9 % Sodium Chloride Flush 3 ML SYRINGE IVFLUSH ×3 (00:42→17:38)
[2022-08-28 03:31] VITALS: BP 147/86; PULSE 56; RESP 18; TEMP 36.2; O2SAT 98
[2022-08-28 06:34] LABS: Alanine Aminotransferase 165 U/L (0-40); Albumin Level 2.9 g/dL (3.5-5.0); Alkaline Phosphatase 108 U/L (39-117); Aspartate Amino Transferase 52 U/L (5-37); Bilirubin Direct 0.5 mg/dL (0.0-0.5); Total Protein 6.7 g/dL (6.5-8.0)
[2022-08-28 07:36] LABS: Glucose, Whole Blood 147 mg/dL (60-115)
[2022-08-28 07:44] VITALS: BP 151/89; PULSE 56; RESP 17; TEMP 36.8; O2SAT 96
[2022-08-28] MEDS: carvediloL 3.125 MG TABLET PO ×2 (07:58→20:45)
[2022-08-28] MEDS: Cholecalciferol (Vitamin D3) 25 MCG TABLET 50 MCG PO (07:58)
[2022-08-28] MEDS: Bumetanide 1 MG TABLET PO ×2 (07:58→17:38)
[2022-08-28] MEDS: Apixaban 2.5 MG TABLET PO ×2 (07:59→20:45)
[2022-08-28] MEDS: Amiodarone HCL 200 MG TABLET PO (07:59)
[2022-08-28] MEDS: Insulin Glargine,Hum.rec.anlog 100 UNIT/ML 10 ML VIAL 10 UNIT SUBCUT (08:00)
[2022-08-28] MEDS: FLUoxetine HCl 20 MG CAPSULE PO (08:00)
--- NOTE | 2022-08-28 10:28 | P.PNNP_ITS ---
Subjective Subjective Date of Service: 08/28/22 Interval history: seen and examined on dialysis Physical Exam Vital Signs: Vital Signs: Last Vital Signs Temp 98.2 F 08/28/22 07:44 Pulse 56 08/28/22 07:44 Resp 17 08/28/22 07:44 BP 151/89 H 08/28/22 07:44 Pulse Ox 96 08/28/22 07:44 O2 Del Method 08/28/22 07:44 O2 Flow Rate 2.0 08/27/22 07:58 Oxygen Flow Rate 2 08/25/22 17:41 BMI result Body Mass Index 22.6 Const: General: no acute distress HEENT: Head: Yes normocephalic and Yes atraumatic Neck: Neck: Yes supple Resp: Auscultation: diminished lung sounds Cardio: Heart sounds: S1 normal heart sound present and S2 normal heart sound present GI: Palpation (GI): Soft to palpation and nontender Extrem: General: Yes no pedal edema Objective Data Labs 08/26/22 06:37 08/27/22 05:38 Labs: Laboratory Results - last 24 hr 08/27/22 08/27/22 08/27/22 11:19 16:32 17:45 POC Glucose 110 145 H Total Bilirubin Direct Bilirubin AST ALT Alkaline Phosphatase Total Protein Albumin Nasal Screen MRSA (PCR) NEGATIVE Nasal S. aureus Screen NEGATIVE Nasal MRSA/S.aureus Interp SEE NOTE 08/27/22 08/28/22 08/28/22 20:41 05:54 07:32 POC Glucose 193 H 147 H Total Bilirubin 1.0 Direct Bilirubin 0.5 AST 52 H ALT 165 H Alkaline Phosphatase 108 Total Protein 6.7 Albumin 2.9 L Nasal Screen MRSA (PCR) Nasal S. aureus Screen Nasal MRSA/S.aureus Interp Microbiology Microbiology Results: Microbiology 08/27/22 07:55 Blood - Venous Blood Culture - Preliminary No growth after 24 hours. 08/27/22 08:02 Blood - Venous Blood Culture - Preliminary No growth after 24 hours. 08/25/22 19:40 Blood - Venous Blood Culture - Preliminary Coag negative Staphylococcus 08/25/22 19:40 Blood - Venous Blood Culture - Preliminary Coag negative Staphylococcus Procedures Date of Service Date of Service: 08/28/22 Assessment & Plan Assessment and plan (1) ESRD (end stage renal disease): Status: Acute (2) HFrEF (heart failure with reduced ejection fraction): Status: Acute (3) Anemia: Status: Acute Plan usually has HD at [place] HD uniot t-t-s via dialysis tunnelled catheeter admitted with PNA known HFrEF REC HD today optimize volume status renal diet phosphate binders WAGNER Abx Time Spent With Patient Time: Total time managing care of this patient today ____ minutes. Progress Note: Quality Stroke Does the patient have a stroke diagnosis?: No
--- NOTE | 2022-08-28 12:06 | HO.PM.IMPN ---
Subjective Subjective Date of Service: 08/28/22 Interval History: seen and examined this morning follow up for pneumonia still seems somewhat confused this morning, but able to answer more questions not a reliable historian Cardiovascular Cardiovascular: Reports chest pain and Reports palpitations Gastrointestinal Gastrointestinal: Reports abdominal pain Endocrine Endocrine: Reports palpitations Physical Exam Vital Signs: Vital Signs: Last Vital Signs Temp 98.2 F 08/28/22 07:44 Pulse 56 08/28/22 07:44 Resp 17 08/28/22 07:44 BP 151/89 H 08/28/22 07:44 Pulse Ox 96 08/28/22 07:44 O2 Del Method 08/28/22 07:44 O2 Flow Rate 2.0 08/27/22 07:58 Oxygen Flow Rate 2 08/25/22 17:41 BMI result Body Mass Index 22.6 Appearing in no acute distress lung sounds are clear to auscultation heart regular rate rhythm, clear S1, S2 positive bowel sounds, abdomen is soft, nontender neuro patient is alert x3, no focal deficits Objective Data Active Medications Acetaminophen (Acetaminophen 325 Mg Tablet) 650 mg PO Q6H PRN PRN Reason: Pain, Mild (Pain Scale 1-3) Amiodarone HCl (Amiodarone Hcl 200 Mg Tablet) 200 mg PO DAILY [facility] Last Admin: 08/28/22 07:59 Dose: 200 mg Documented By: MARY Apixaban (Apixaban 2.5 Mg Tablet) 2.5 mg PO BID [facility] Last Admin: 08/28/22 07:59 Dose: 2.5 mg Documented By: MARY Atorvastatin Calcium (Atorvastatin Calcium 80 Mg Tablet) 80 mg PO BEDTIME [facility] Last Admin: 08/25/22 21:41 Dose: 80 mg Documented By: MADDENL Bumetanide (Bumetanide 1 Mg Tablet) 1 mg PO BIDWM [facility]; Protocol Last Admin: 08/28/22 07:58 Dose: 1 mg Documented By: MARY Carvedilol (Carvedilol 3.125 Mg Tablet) 3.125 mg PO BID [facility]; Protocol Last Admin: 08/28/22 07:58 Dose: 3.125 mg Documented By: MAYR Dextrose (Dextrose 50 % 25 Gm/50 Ml Vial) 25 gm IVPUSH Q15M PRN; Protocol PRN Reason: per Hypoglycemia Standing Ord. Fluoxetine HCl (Fluoxetine Hcl 20 Mg Capsule) 20 mg PO DAILY [facility] Last Admin: 08/28/22 08:00 Dose: 20 mg Documented By: MARY Glucose (Glucose Gel 15 Gm Gel..Gram.) 15 gm PO Q15M PRN; Protocol PRN Reason: per Hypoglycemia Standing Ord. Vancomycin HCl 500 mg/ Sodium (Chloride) 110 mls @ 110 mls/hr IV TuThSa@1800 [facility] Piperacillin Sod/Tazobactam (Sod 4.5 gm/ Sodium Chloride) 100 mls @ 200 mls/hr IV Q12H [facility] Last Infusion: 08/28/22 01:32 Dose: 0 mls/hr Documented By: JOHN Insulin Glargine (Insulin Glargine,Hum.Rec.Anlog 100 Unit/Ml 10 Ml Vial) 10 unit SUBCUT DAILY [facility] Last Admin: 08/28/22 08:00 Dose: 10 unit Documented By: MARY Insulin Human Lispro (Insulin Lispro 100 Unit/Ml 3 Ml Vial) 0 unit SUBCUT QIDACHS [facility]; Protocol Last Admin: 08/28/22 07:50 Dose: Not Given Documented By: MARY Non-Admin Reason: No Insulin Coverage Melatonin (Melatonin 3 Mg Tablet) 6 mg PO BEDTIME PRN PRN Reason: Insomnia Ondansetron HCl (Ondansetron Hcl 4 Mg/2 Ml Vial) 4 mg IVPUSH Q8H PRN PRN Reason: Nausea and Vomiting Pharmacy Consult (Consult Rx Perform Med Rec) 1 each MISCELLANE ONCE PRN PRN Reason: Consult order Pharmacy Consult (Consult Rx Vancomycin Dosing) 1 each MISCELLANE DAILY PRN PRN Reason: Consult order Sodium Chloride (0.9 % Sodium Chloride Flush 3 Ml Syringe) 3 ml IVFLUSH QSHIFT [facility] Last Admin: 08/28/22 07:59 Dose: 3 ml Documented By: MARY Vitamin D (Cholecalciferol (Vitamin D3) 25 Mcg Tablet) 50 mcg PO DAILY [facility] Last Admin: 08/28/22 07:58 Dose: 50 mcg Documented By: MARY Labs 08/26/22 06:37 08/27/22 05:38 Labs: Laboratory Results - last 24 hr 08/27/22 08/27/22 08/27/22 16:32 17:45 20:41 POC Glucose 145 H 193 H Total Bilirubin Direct Bilirubin AST ALT Alkaline Phosphatase Total Protein Albumin Nasal Screen MRSA (PCR) NEGATIVE Nasal S. aureus Screen NEGATIVE Nasal MRSA/S.aureus Interp SEE NOTE 08/28/22 08/28/22 05:54 07:32 POC Glucose 147 H Total Bilirubin 1.0 Direct Bilirubin 0.5 AST 52 H ALT 165 H Alkaline Phosphatase 108 Total Protein 6.7 Albumin 2.9 L Nasal Screen MRSA (PCR) Nasal S. aureus Screen Nasal MRSA/S.aureus Interp Microbiology Microbiology Results: Microbiology 08/27/22 07:55 Blood Culture - Preliminary Blood - Venous No growth after 24 hours. 08/27/22 08:02 Blood Culture - Preliminary Blood - Venous No growth after 24 hours. 08/25/22 19:40 Blood Culture - Preliminary Blood - Venous Coag negative Staphylococcus 08/25/22 19:40 Blood Culture - Preliminary Blood - Venous Coag negative Staphylococcus Assessment and Plan (1) Community acquired pneumonia: Status: Acute Plan This is a 67-year-old male with pertinent history of ESRD on hemodialysis, coronary artery disease with ischemic cardiomyopathy and congestive heart failure with reduced ejection fraction, insulin-dependent diabetes mellitus, paroxysmal atrial fibrillation on Eliquis, mood disorder who presents to the emergency department for evaluation of dyspnea. Acute hypoxemic respiratory failure secondary to community-acquired pneumonia: no sepsis Monitor oxygen saturation and wean as tolerated. Currently on 2 L supplemental oxygen. Rocephin and doxy coag neg staph 2/2 was on vanco initially ID consult pending new cx neg after 24 hrs elevated LFTs abdominal US showing concern over acute cholecystitis, negative HIDA hold statin LFTs trending down toxic metabolic encephalopathy seems a little better today brain CT showing chronic stroke, pt denies h/o cva, but not a great historian attempted to call family for more information again. one number not in service, left message again for Alysia Enrique listed as HCP acute lactic acidosis r/t hypoxia not sepsis ESRD on hemodialysis typical HD schedule TTHSa via HD catheter nephrology following Chronic HFrEF Continue home Bumex, beta-benjamin Insulin-dependent diabetes mellitus: Continue basal regimen Follow POCs, with sliding scale insulin. Elevated troponin type 2 due to increased demand and CKD lower then previous Paroxysmal atrial fibrillation continue Eliquis and amiodarone Mood disorder Continue fluoxetine Chronic normocytic anemia: H/H at baseline Hemoglobin above transfusion threshold DVT prophylaxis: Eliquis Full code Low-salt diet attending - dr. Vora patient requires ongoing inpatient hospitalization for IV antibiotics and supplemental oxygen, surgical evaluation Time Spent With Patient Time: Total time managing care of this patient today ____ minutes. Quality Stroke Does the patient have a stroke diagnosis?: No VTE Prior VTE?: No VTE Risk Level:: Medical - moderate - high VTE Device Contraindication: Treatment Not Indicated VTE Drug Contraindication: N/A - Med Ordered
[2022-08-28 13:11] LABS: Glucose, Whole Blood 103 mg/dL (60-115)
[2022-08-28 13:20] VITALS: BP 161/84; PULSE 54; RESP 17; TEMP 36.3; O2SAT 95
[2022-08-28] MEDS: cefTRIAXone sodium 1 GM in 0.9 % Sodium Chloride 50 ML IV (14:39)
[2022-08-28] MEDS: Doxycycline Monohydrate 100 MG CAPSULE PO (14:39)
[2022-08-28 15:23] VITALS: BP 142/83; PULSE 56; RESP 17; TEMP 36.4; O2SAT 96
[2022-08-28 16:29] LABS: Glucose, Whole Blood 129 mg/dL (60-115)
[2022-08-28 19:42] VITALS: BP 158/88; PULSE 58; RESP 14; TEMP 36.5; O2SAT 96
[2022-08-28] MEDS: Insulin Lispro 100 UNIT/ML 3 ML VIAL SUBCUT (20:45)
[2022-08-28 20:50] LABS: Glucose, Whole Blood 160 mg/dL (60-115)
[2022-08-29 03:24] VITALS: BP 139/80; PULSE 60; RESP 17; TEMP 36.1; O2SAT 97
[2022-08-29 06:12] LABS: Anion Gap 17 (12-20); Blood Urea Nitrogen 23 mg/dL (9-16); Calcium 8.3 mg/dL (8.4-10.2); Carbon Dioxide 19 mmol/L (22-29); Chloride 102 mmol/L (96-108); Creatinine Clr Calc Pharmacy 15.2; Estimated Glomerular Filt Rate 17; Glucose Random 130 mg/dL (60-115); Potassium 3.8 mmol/L (3.3-5.1); Sodium 134 mmol/L (135-145)
[2022-08-29 07:37] LABS: Glucose, Whole Blood 130 mg/dL (60-115)
[2022-08-29 07:55] VITALS: BP 142/77; PULSE 60; RESP 17; TEMP 36.2; O2SAT 95
--- NOTE | 2022-08-29 09:17 | PM.PNNEP ---
Subjective Subjective Date of Service: 08/29/22 Interval history: seen and examined more awake Physical Exam Vital Signs: Vital Signs: Last Vital Signs Temp 97.1 F 08/29/22 07:55 Pulse 60 08/29/22 07:55 Resp 17 08/29/22 07:55 BP 142/77 H 08/29/22 07:55 Pulse Ox 95 08/29/22 07:55 O2 Del Method 08/29/22 07:55 O2 Flow Rate 2.0 08/27/22 07:58 Oxygen Flow Rate 2 08/25/22 17:41 BMI result Body Mass Index 22.6 Const: General: no acute distress HEENT: Head: Yes normocephalic and Yes atraumatic Neck: Neck: Yes supple Resp: Auscultation: diminished lung sounds Cardio: Heart sounds: S1 normal heart sound present and S2 normal heart sound present GI: Palpation (GI): Soft to palpation and nontender Extrem: General: Yes no pedal edema Objective Data Labs 08/26/22 06:37 08/29/22 05:32 Labs: Laboratory Results - last 24 hr 08/28/22 08/28/22 08/28/22 13:06 15:58 16:24 Sodium Potassium Chloride Carbon Dioxide Anion Gap BUN Creatinine Estim Creat Clear Calc Estimated GFR POC Glucose 103 129 H Random Glucose Calcium Vancomycin Trough 12.0 08/28/22 08/29/22 08/29/22 20:43 05:32 07:29 Sodium 134 L Potassium 3.8 Chloride 102 Carbon Dioxide 19 L Anion Gap 17 BUN 23 H Creatinine 3.52 H Estim Creat Clear Calc 15.2 Estimated GFR 17 POC Glucose 160 H 130 H Random Glucose 130 H Calcium 8.3 L Vancomycin Trough Microbiology Microbiology Results: Microbiology 08/25/22 19:40 Blood - Venous Blood Culture - Final Staphylococcus epidermidis 08/25/22 19:40 Blood - Venous Blood Culture - Final Staphylococcus epidermidis 08/27/22 07:55 Blood - Venous Blood Culture - Preliminary No growth after 24 hours. 08/27/22 08:02 Blood - Venous Blood Culture - Preliminary No growth after 24 hours. Procedures Date of Service Date of Service: 08/29/22 Assessment & Plan Assessment and plan (1) ESRD (end stage renal disease): Status: Acute (2) HFrEF (heart failure with reduced ejection fraction): Status: Acute (3) Anemia: Status: Acute Plan s/p HD yesterday usually has HD at [place] HD uniot t-t-s via dialysis tunnelled catheeter admitted with PNA known HFrEF REC HD per schedule renal diet phosphate binders WAGNER Abx Time Spent With Patient Time: Total time managing care of this patient today ____ minutes. Progress Note: Quality Stroke Does the patient have a stroke diagnosis?: No
[2022-08-29] MEDS: Bumetanide 1 MG TABLET PO ×2 (09:59→17:50)
[2022-08-29] MEDS: FLUoxetine HCl 20 MG CAPSULE PO (09:59)
[2022-08-29] MEDS: carvediloL 3.125 MG TABLET PO (09:59)
[2022-08-29] MEDS: 0.9 % Sodium Chloride Flush 3 ML SYRINGE IVFLUSH ×4 (09:59→21:40)
[2022-08-29] MEDS: Amiodarone HCL 200 MG TABLET PO (09:59)
[2022-08-29] MEDS: Apixaban 2.5 MG TABLET PO ×2 (09:59→21:39)
[2022-08-29] MEDS: Cholecalciferol (Vitamin D3) 25 MCG TABLET 50 MCG PO (10:00)
[2022-08-29] MEDS: Insulin Glargine,Hum.rec.anlog 100 UNIT/ML 10 ML VIAL 10 UNIT SUBCUT (10:00)
[2022-08-29 11:30] LABS: Glucose, Whole Blood 241 mg/dL (60-115)
--- NOTE | 2022-08-29 11:35 | PM.PNGS ---
Subjective Subjective Date of Service: 08/29/22 Interval history: not very communicative does not answer questions at this time Physical Exam Vital Signs: Vital Signs: Last Vital Signs Temp 97.1 F 08/29/22 07:55 Pulse 60 08/29/22 07:55 Resp 17 08/29/22 07:55 BP 142/77 H 08/29/22 07:55 Pulse Ox 95 08/29/22 07:55 O2 Del Method 08/29/22 07:55 O2 Flow Rate 2.0 08/27/22 07:58 Oxygen Flow Rate 2 08/25/22 17:41 BMI result Body Mass Index 22.6 Const: General: comfortable and no acute distress Resp: Effort & Inspection: normal respiratory effort Cardio: Rate: regular rate GI: Other: soft no apparent tenderness Objective Data Active Medications Acetaminophen (Acetaminophen 325 Mg Tablet) 650 mg PO Q6H PRN PRN Reason: Pain, Mild (Pain Scale 1-3) Amiodarone HCl (Amiodarone Hcl 200 Mg Tablet) 200 mg PO DAILY [facility] Last Admin: 08/29/22 09:59 Dose: 200 mg Documented By: TRINIDAD Apixaban (Apixaban 2.5 Mg Tablet) 2.5 mg PO BID [facility] Last Admin: 08/29/22 09:59 Dose: 2.5 mg Documented By: TRINIDAD Atorvastatin Calcium (Atorvastatin Calcium 80 Mg Tablet) 80 mg PO BEDTIME [facility] Last Admin: 08/25/22 21:41 Dose: 80 mg Documented By: MADDENL Bumetanide (Bumetanide 1 Mg Tablet) 1 mg PO BIDWM [facility]; Protocol Last Admin: 08/29/22 09:59 Dose: 1 mg Documented By: TRINIDAD Carvedilol (Carvedilol 3.125 Mg Tablet) 3.125 mg PO BID [facility]; Protocol Last Admin: 08/29/22 09:59 Dose: 3.125 mg Documented By: TRINIDAD Dextrose (Dextrose 50 % 25 Gm/50 Ml Vial) 25 gm IVPUSH Q15M PRN; Protocol PRN Reason: per Hypoglycemia Standing Ord. Doxycycline Monohydrate (Doxycycline Monohydrate 100 Mg Capsule) 100 mg PO Q12H [facility] Last Admin: 08/29/22 00:00 Dose: 100 mg Documented By: JOHN Fluoxetine HCl (Fluoxetine Hcl 20 Mg Capsule) 20 mg PO DAILY [facility] Last Admin: 08/29/22 09:59 Dose: 20 mg Documented By: TRINIDAD Glucose (Glucose Gel 15 Gm Gel..Gram.) 15 gm PO Q15M PRN; Protocol PRN Reason: per Hypoglycemia Standing Ord. Ceftriaxone Sodium 1 gm/ (Sodium Chloride) 50 mls @ 100 mls/hr IV Q24H [facility] Last Infusion: 08/28/22 15:20 Dose: 0 mls/hr Documented By: MARY Insulin Glargine (Insulin Glargine,Hum.Rec.Anlog 100 Unit/Ml 10 Ml Vial) 10 unit SUBCUT DAILY [facility] Last Admin: 08/29/22 10:00 Dose: 10 unit Documented By: TRINIDAD Insulin Human Lispro (Insulin Lispro 100 Unit/Ml 3 Ml Vial) 0 unit SUBCUT QIDACHS [facility]; Protocol Last Admin: 08/29/22 07:43 Dose: Not Given Documented By: TRINIDAD Non-Admin Reason: No Insulin Coverage Melatonin (Melatonin 3 Mg Tablet) 6 mg PO BEDTIME PRN PRN Reason: Insomnia Ondansetron HCl (Ondansetron Hcl 4 Mg/2 Ml Vial) 4 mg IVPUSH Q8H PRN PRN Reason: Nausea and Vomiting Pharmacy Consult (Consult Rx Perform Med Rec) 1 each MISCELLANE ONCE PRN PRN Reason: Consult order Sodium Chloride (0.9 % Sodium Chloride Flush 3 Ml Syringe) 3 ml IVFLUSH QSHIFT [facility] Last Admin: 08/29/22 09:59 Dose: 3 ml Documented By: TRINIDAD Vitamin D (Cholecalciferol (Vitamin D3) 25 Mcg Tablet) 50 mcg PO DAILY [facility] Last Admin: 08/29/22 10:00 Dose: 50 mcg Documented By: TRINIDAD Labs 08/26/22 06:37 08/29/22 05:32 Labs: Laboratory Results - last 24 hr 08/28/22 08/28/22 08/28/22 13:06 15:58 16:24 Anion Gap Estim Creat Clear Calc Estimated GFR POC Glucose 103 129 H Random Glucose Calcium Vancomycin Trough 12.0 08/28/22 08/29/22 08/29/22 20:43 05:32 07:29 Anion Gap 17 Estim Creat Clear Calc 15.2 Estimated GFR 17 POC Glucose 160 H 130 H Random Glucose 130 H Calcium 8.3 L Vancomycin Trough 08/29/22 11:19 Anion Gap Estim Creat Clear Calc Estimated GFR POC Glucose 241 H Random Glucose Calcium Vancomycin Trough Microbiology Microbiology Results: Microbiology 08/27/22 07:55 Blood Culture - Preliminary Blood - Venous No growth after 48 hours. 08/27/22 08:02 Blood Culture - Preliminary Blood - Venous No growth after 48 hours. 08/25/22 19:40 Blood Culture - Final Blood - Venous Staphylococcus epidermidis 08/25/22 19:40 Blood Culture - Final Blood - Venous Staphylococcus epidermidis Procedures Date of Service Date of Service: 08/29/22 Progress Note: A&P Assessment and plan (1) Gallstones: Status: Acute Assessment and Plan: no cholecystitis no surgical intervention necessary at this time has other acute medical issues Time Spent With Patient Time: Total time managing care of this patient today ____ minutes. Quality Stroke Does the patient have a stroke diagnosis?: No VTE Prior VTE?: No VTE Risk Level:: Medical - moderate - high VTE Device Contraindication: Treatment Not Indicated VTE Drug Contraindication: N/A - Med Ordered
[2022-08-29] MEDS: cefTRIAXone sodium 1 GM in 0.9 % Sodium Chloride 50 ML IV (11:49)
[2022-08-29] MEDS: Insulin Lispro 100 UNIT/ML 3 ML VIAL SUBCUT ×2 (11:49→21:39)
--- NOTE | 2022-08-29 11:56 | HO.PM.IMPN ---
Subjective Subjective Date of Service: 08/29/22 Interval History: seen and examined this morning follow up for pneumonia still seems somewhat confused this morning, but able to answer more questions not a reliable historian Cardiovascular Cardiovascular: Reports chest pain and Reports palpitations Gastrointestinal Gastrointestinal: Reports abdominal pain Endocrine Endocrine: Reports palpitations Physical Exam Vital Signs: Vital Signs: Last Vital Signs Temp 97.1 F 08/29/22 07:55 Pulse 60 08/29/22 07:55 Resp 17 08/29/22 07:55 BP 142/77 H 08/29/22 07:55 Pulse Ox 95 08/29/22 07:55 O2 Del Method 08/29/22 07:55 O2 Flow Rate 2.0 08/27/22 07:58 Oxygen Flow Rate 2 08/25/22 17:41 BMI result Body Mass Index 22.6 Appearing in no acute distress lung sounds are clear to auscultation heart regular rate rhythm, clear S1, S2 positive bowel sounds, abdomen is soft, nontender neuro patient is alert x3, no focal deficits Objective Data Active Medications Acetaminophen (Acetaminophen 325 Mg Tablet) 650 mg PO Q6H PRN PRN Reason: Pain, Mild (Pain Scale 1-3) Amiodarone HCl (Amiodarone Hcl 200 Mg Tablet) 200 mg PO DAILY [facility] Last Admin: 08/29/22 09:59 Dose: 200 mg Documented By: TRINIDAD Apixaban (Apixaban 2.5 Mg Tablet) 2.5 mg PO BID [facility] Last Admin: 08/29/22 09:59 Dose: 2.5 mg Documented By: TRINIDAD Atorvastatin Calcium (Atorvastatin Calcium 80 Mg Tablet) 80 mg PO BEDTIME [facility] Last Admin: 08/25/22 21:41 Dose: 80 mg Documented By: MADDENL Bumetanide (Bumetanide 1 Mg Tablet) 1 mg PO BIDWM [facility]; Protocol Last Admin: 08/29/22 09:59 Dose: 1 mg Documented By: TRINIDAD Carvedilol (Carvedilol 3.125 Mg Tablet) 3.125 mg PO BID [facility]; Protocol Last Admin: 08/29/22 09:59 Dose: 3.125 mg Documented By: TRINIDAD Dextrose (Dextrose 50 % 25 Gm/50 Ml Vial) 25 gm IVPUSH Q15M PRN; Protocol PRN Reason: per Hypoglycemia Standing Ord. Doxycycline Monohydrate (Doxycycline Monohydrate 100 Mg Capsule) 100 mg PO Q12H [facility] Last Admin: 08/29/22 00:00 Dose: 100 mg Documented By: JOHN Fluoxetine HCl (Fluoxetine Hcl 20 Mg Capsule) 20 mg PO DAILY [facility] Last Admin: 08/29/22 09:59 Dose: 20 mg Documented By: TRINIDAD Glucose (Glucose Gel 15 Gm Gel..Gram.) 15 gm PO Q15M PRN; Protocol PRN Reason: per Hypoglycemia Standing Ord. Ceftriaxone Sodium 1 gm/ (Sodium Chloride) 50 mls @ 100 mls/hr IV Q24H [facility] Last Admin: 08/29/22 11:49 Dose: 100 mls/hr Documented By: TRINIDAD Insulin Glargine (Insulin Glargine,Hum.Rec.Anlog 100 Unit/Ml 10 Ml Vial) 10 unit SUBCUT DAILY [facility] Last Admin: 08/29/22 10:00 Dose: 10 unit Documented By: TRINIDAD Insulin Human Lispro (Insulin Lispro 100 Unit/Ml 3 Ml Vial) 0 unit SUBCUT QIDACHS [facility]; Protocol Last Admin: 08/29/22 11:49 Dose: 4 unit Documented By: TRINIDAD Melatonin (Melatonin 3 Mg Tablet) 6 mg PO BEDTIME PRN PRN Reason: Insomnia Ondansetron HCl (Ondansetron Hcl 4 Mg/2 Ml Vial) 4 mg IVPUSH Q8H PRN PRN Reason: Nausea and Vomiting Pharmacy Consult (Consult Rx Perform Med Rec) 1 each MISCELLANE ONCE PRN PRN Reason: Consult order Sodium Chloride (0.9 % Sodium Chloride Flush 3 Ml Syringe) 3 ml IVFLUSH QSHIFT [facility] Last Admin: 08/29/22 09:59 Dose: 3 ml Documented By: TRINIDAD Vitamin D (Cholecalciferol (Vitamin D3) 25 Mcg Tablet) 50 mcg PO DAILY [facility] Last Admin: 08/29/22 10:00 Dose: 50 mcg Documented By: TRINIDAD Labs 08/26/22 06:37 08/29/22 05:32 Labs: Laboratory Results - last 24 hr 08/28/22 08/28/22 08/28/22 13:06 15:58 16:24 Anion Gap Estim Creat Clear Calc Estimated GFR POC Glucose 103 129 H Random Glucose Calcium Vancomycin Trough 12.0 08/28/22 08/29/22 08/29/22 20:43 05:32 07:29 Anion Gap 17 Estim Creat Clear Calc 15.2 Estimated GFR 17 POC Glucose 160 H 130 H Random Glucose 130 H Calcium 8.3 L Vancomycin Trough 08/29/22 11:19 Anion Gap Estim Creat Clear Calc Estimated GFR POC Glucose 241 H Random Glucose Calcium Vancomycin Trough Microbiology Microbiology Results: Microbiology 08/27/22 07:55 Blood Culture - Preliminary Blood - Venous No growth after 48 hours. 08/27/22 08:02 Blood Culture - Preliminary Blood - Venous No growth after 48 hours. 08/25/22 19:40 Blood Culture - Final Blood - Venous Staphylococcus epidermidis 08/25/22 19:40 Blood Culture - Final Blood - Venous Staphylococcus epidermidis Assessment and Plan (1) Community acquired pneumonia: Status: Acute Plan This is a 67-year-old male with pertinent history of ESRD on hemodialysis, coronary artery disease with ischemic cardiomyopathy and congestive heart failure with reduced ejection fraction, insulin-dependent diabetes mellitus, paroxysmal atrial fibrillation on Eliquis, mood disorder who presents to the emergency department for evaluation of dyspnea. Acute hypoxemic respiratory failure secondary to community-acquired pneumonia no sepsis Monitor oxygen saturation and wean as tolerated. Currently on 2 L supplemental oxygen. Rocephin and doxy coag neg staph 2/2 was on vanco initially new cx neg after 48 hrs elevated LFTs abdominal US showing concern over acute cholecystitis, negative HIDA hold statin LFTs trending down toxic metabolic encephalopathy seems a little better today brain CT showing chronic stroke, pt denies h/o cva, but not a great historian attempted to call family for more information again. one number not in service, left message again for Alysia Nunez listed as HCP acute lactic acidosis r/t hypoxia not sepsis ESRD on hemodialysis typical HD schedule [facility] via HD catheter nephrology following Chronic HFrEF Continue home Bumex, beta-benjamin Insulin-dependent diabetes mellitus: Continue basal regimen Follow POCs, with sliding scale insulin. Elevated troponin type 2 due to increased demand and CKD lower then previous Paroxysmal atrial fibrillation continue Eliquis and amiodarone Mood disorder Continue fluoxetine Chronic normocytic anemia: H/H at baseline Hemoglobin above transfusion threshold DVT prophylaxis: Eliquis Full code Low-salt diet attending - dr. Vora DISPO needs PT eval. OOB to chair patient requires ongoing inpatient hospitalization for IV antibiotics and supplemental oxygen, surgical evaluation Time Spent With Patient Time: Total time managing care of this patient today ____ minutes. Quality Stroke Does the patient have a stroke diagnosis?: No VTE Prior VTE?: No VTE Risk Level:: Medical - moderate - high VTE Device Contraindication: Treatment Not Indicated VTE Drug Contraindication: N/A - Med Ordered
[2022-08-29] MEDS: Doxycycline Monohydrate 100 MG CAPSULE PO ×2 (12:27)
[2022-08-29 16:17] VITALS: BP 135/76; PULSE 57; RESP 18; TEMP 36.3; O2SAT 97
[2022-08-29 16:52] LABS: Glucose, Whole Blood 78 mg/dL (60-115)
[2022-08-29 20:15] VITALS: BP 140/77; PULSE 54; RESP 16; TEMP 36.2; O2SAT 99
[2022-08-29 21:05] LABS: Glucose, Whole Blood 189 mg/dL (60-115)
[2022-08-30] MEDS: Doxycycline Monohydrate 100 MG CAPSULE PO ×2 (00:30→13:15)
[2022-08-30 03:33] VITALS: BP 155/68; PULSE 55; RESP 18; TEMP 36; O2SAT 98
--- NOTE | 2022-08-30 07:00 | CA_ITS ---
Transthoracic Echocardiogram Patient (Last, First, Middle): Liang Nunez, Gender: Male Date of : 1955 Age: 67 Procedure Date: 08/30/2022 Procedure Type: Transthoracic Echocardiogram Location: S3E Height: 157.48 cm Weight: 56.25 kg BSA: 1.56 m2 Heart Rate: 56 bpm BP: 148 / 86 mmHg Cocoa Bean Cleaner: CARYN Referring MD: Ly Joseph NP Symptoms: GPC bacteremia Study Quality: Adequate/Contrast ECG Rhythm: Bradycardia Conclusions: - The left ventricular systolic function is severely decreased. The calculated ejection fraction is 28% by biplane method. - Evidence suggests grade II (moderate) diastolic dysfunction. - The inferoseptal wall, the basal inferior, and mid inferior segments are akinetic. - There is mild mitral valve regurgitation. - Normal tricuspid valve structure. Findings Procedure Information Contrast agent, definity, is being given per protocol without apparent complications. Left Ventricle Normal left ventricular cavity size. There is normal left ventricular wall thickness. The left ventricular systolic function is severely decreased. The calculated ejection fraction is 28% by biplane method. There is evidence of regional wall motion abnormalities. There is severe global hypokinesis. E/E prime ratio is >15, consistent with elevated filling pressures. Evidence suggests grade II (moderate) diastolic dysfunction. Wall Motion Rest Echo Findings The inferoseptal wall, the basal inferior, and mid inferior segments are akinetic. Right Ventricle Mildly increased right ventricular cavity size. There is mild to moderately decreased right ventricular systolic function. Atria The left atrium is moderately dilated. The right atrium is mildly dilated. Aortic Valve There is a normal trileaflet aortic valve. There is mild calcification of the aortic valve. There is no aortic valve stenosis. There is no aortic valve regurgitation. Mitral Valve The mitral valve appears normal. There is mild mitral valve regurgitation. There is no mitral valve stenosis. Pulmonic Valve There is trace pulmonic valve regurgitation. Tricuspid Valve Normal tricuspid valve structure. There is mild tricuspid valve regurgitation. There is no evidence of pulmonary hypertension. Great Vessels The asc aorta is normal in size. Venous The inferior vena cava is normal in size and collapses less than 50% with inspiration. Pericardium/Pleural There is a trivial pericardial effusion. There is a large left sided pleural effusion. Prior Study Comparison Changes noted compared to prior study dated: 02/22/2022. LVEF decreased further. Measurements 2D Linear Measurements IVSd: 0.93 0.6-0.9/0.6-1.0 cm LVIDd: 5.29 3.9-5.3/4.2-5.9 cm LVIDd Index: 3.39 2.4-3.2/2.2-3.1 cm/m2 LVIDs: 4.73 2.0-3.6 cm LVPWd: 1.06 0.7-1.1 cm LA Diam: 4.30 2.7-3.8/3.0-4.0 cm LAIDs Index: 2.76 1.5-2.3 cm/m2 LV Mass: 246.97 67-162/88-224 g LV Mass Index: 158.32 43-95/49-115 g/m2 LVOT Diam: 2.30 3.0+(-)1.3 cm 2D Systolic Function EF 4C: 38.40 >55% EF 2C: 20.40 >55% EF BiP: 27.90 >55% Mitral Valve MV Pk E: 0.94 MV PK A: 0.50 MV Decel Time: 191.00 E/A: 1.90 E'Lateral: 6.73 E'Medial: 2.92 E/E' Med: 32.20 E/E' Lat: 14.00 PHT: 56.00 MVA PHT: 3.93 Decel Corson: 4.92 Aortic Valve AoV Pk Luiz: 0.95 AoV Mn Luiz: 0.70 AoV VTI: 0.19 AoV Pk Grad: 4.00 Aov Mn Grad: 2.00 YAYA Cont.VTI: 2.66 LVOT LVOT Pk Luiz: 0.66 LVOT Mn Luiz: 0.39 LVOT VTI: 0.12 LVOT Pk Grad: 2.00 LVOT Mn Grad: 1.00 LVOT Diam: 2.30 LVOT Area: 4.15 Diastolic Function MV Pk E: 0.94 MV Pk A: 0.50 E/A: 1.90 E'Medial: 2.92 E/E' Med: 32.20 E' Laterial: 6.73 E/E' Lat: 14.00 Right Ventricle TAPSE (mm): 13.40 TVS' Luiz: 6.93 Tricuspid Valve TR Pk Luiz: 2.67 TR Pk Grad: 29.00 RA Press: 3.00 RVSP: 32.00 Great Vessels Aorta Sinus of Valsalva: 3.40 2.0-3.5 cm Ao Asc: 3.10 2.1-3.4 cm Pulmonary Valve PV Pk Luiz: 0.73 Peak PV Grad: 2.00 Updated in Other Vendor System with Status of Final Frankie Abarca MD electronically signed on 08/30/2022 11:54:56 AM with status of Final
[2022-08-30 07:09] VITALS: BP 148/86; PULSE 55; RESP 18; TEMP 36.2; O2SAT 98
[2022-08-30 07:10] LABS: Glucose, Whole Blood 109 mg/dL (60-115)
[2022-08-30] MEDS: Insulin Glargine,Hum.rec.anlog 100 UNIT/ML 10 ML VIAL 10 UNIT SUBCUT (08:42)
[2022-08-30] MEDS: Cholecalciferol (Vitamin D3) 25 MCG TABLET 50 MCG PO (08:42)
[2022-08-30] MEDS: Apixaban 2.5 MG TABLET PO ×2 (08:43→21:05)
[2022-08-30] MEDS: Amiodarone HCL 200 MG TABLET PO (08:43)
[2022-08-30] MEDS: carvediloL 3.125 MG TABLET PO (08:43)
[2022-08-30] MEDS: Bumetanide 1 MG TABLET PO ×2 (08:43→16:54)
[2022-08-30] MEDS: FLUoxetine HCl 20 MG CAPSULE PO (08:43)
[2022-08-30 08:44] VITALS: BP 145/87; PULSE 58; O2SAT 95
[2022-08-30] MEDS: 0.9 % Sodium Chloride Flush 3 ML SYRINGE IVFLUSH ×2 (08:44→16:53)
--- NOTE | 2022-08-30 09:22 | PM.PNNEP ---
Subjective Subjective Date of Service: 08/30/22 Interval history: seen and examined this morning follow up for pneumonia Physical Exam Vital Signs: Vital Signs: Last Vital Signs Temp 97.2 F 08/30/22 07:09 Pulse 58 08/30/22 08:44 Resp 18 08/30/22 07:09 BP 145/87 H 08/30/22 08:44 Pulse Ox 95 08/30/22 08:44 O2 Del Method 08/30/22 07:09 O2 Flow Rate 2.0 08/27/22 07:58 Oxygen Flow Rate 2 08/25/22 17:41 BMI result Body Mass Index 22.6 Const: General: no acute distress HEENT: Head: Yes normocephalic and Yes atraumatic Neck: Neck: Yes supple Resp: Auscultation: diminished lung sounds Cardio: Heart sounds: S1 normal heart sound present and S2 normal heart sound present GI: Palpation (GI): Soft to palpation and nontender Extrem: General: Yes no pedal edema Objective Data Labs 08/26/22 06:37 08/29/22 05:32 Labs: Laboratory Results - last 24 hr 08/29/22 08/29/22 08/29/22 11:19 16:45 20:56 POC Glucose 241 H 78 189 H 08/30/22 07:07 POC Glucose 109 Microbiology Microbiology Results: Microbiology 08/27/22 07:55 Blood - Venous Blood Culture - Preliminary No growth after 48 hours. 08/27/22 08:02 Blood - Venous Blood Culture - Preliminary No growth after 48 hours. 08/25/22 19:40 Blood - Venous Blood Culture - Final Staphylococcus epidermidis 08/25/22 19:40 Blood - Venous Blood Culture - Final Staphylococcus epidermidis Procedures Date of Service Date of Service: 08/30/22 Assessment & Plan Assessment and plan (1) ESRD (end stage renal disease): Status: Acute (2) HFrEF (heart failure with reduced ejection fraction): Status: Acute (3) Anemia: Status: Acute Plan s/p HD on 08/28/22 usually has HD at [place] HD unit t-t-s via dialysis tunnelled catheeter admitted with PNA known HFrEF REC HD per schedule renal diet phosphate binders WAGNER Abx Time Spent With Patient Time: Total time managing care of this patient today ____ minutes. Progress Note: Quality Stroke Does the patient have a stroke diagnosis?: No
--- NOTE | 2022-08-30 10:51 | MHC.CLN ---
NUTRITION DIET PER DIABETIC, RENAL PARAMETERS WITH DIALYSIS. DIET=DIABETIC 1800 KCAL, 2 GRAM SODIUM, LOW POTASSIUM, LOW PHOSPHORUS. INTAKE VARIABLE, 0-100%. NO NEW WEIGHT. DIALYSIS T, TH, SAT. CONTINUE TO FOLLOW FOR INTAKE AND WEIGHT.
[2022-08-30 11:06] LABS: Glucose, Whole Blood 205 mg/dL (60-115)
--- NOTE | 2022-08-30 11:12 | P.PNIM_ITS ---
Subjective Subjective Date of Service: 08/30/22 Interval History: seen and examined this morning follow up for pneumonia still seems somewhat confused this morning, but able to answer more questions not a reliable historian Cardiovascular Cardiovascular: Reports chest pain and Reports palpitations Gastrointestinal Gastrointestinal: Reports abdominal pain Endocrine Endocrine: Reports palpitations Physical Exam Vital Signs: Vital Signs: Last Vital Signs Temp 97.2 F 08/30/22 07:09 Pulse 58 08/30/22 08:44 Resp 18 08/30/22 07:09 BP 145/87 H 08/30/22 08:44 Pulse Ox 95 08/30/22 08:44 O2 Del Method 08/30/22 07:09 O2 Flow Rate 2.0 08/27/22 07:58 Oxygen Flow Rate 2 08/25/22 17:41 BMI result Body Mass Index 22.6 Appearing in no acute distress lung sounds are clear to auscultation heart regular rate rhythm, clear S1, S2 positive bowel sounds, abdomen is soft, nontender neuro patient is alert x3, confused Objective Data Active Medications Acetaminophen (Acetaminophen 325 Mg Tablet) 650 mg PO Q6H PRN PRN Reason: Pain, Mild (Pain Scale 1-3) Amiodarone HCl (Amiodarone Hcl 200 Mg Tablet) 200 mg PO DAILY [facility] Last Admin: 08/30/22 08:43 Dose: 200 mg Documented By: TONIO Apixaban (Apixaban 2.5 Mg Tablet) 2.5 mg PO BID [facility] Last Admin: 08/30/22 08:43 Dose: 2.5 mg Documented By: TONIO Atorvastatin Calcium (Atorvastatin Calcium 80 Mg Tablet) 80 mg PO BEDTIME [facility] Last Admin: 08/25/22 21:41 Dose: 80 mg Documented By: MADDENL Bumetanide (Bumetanide 1 Mg Tablet) 1 mg PO BIDWM [facility]; Protocol Last Admin: 08/30/22 08:43 Dose: 1 mg Documented By: TONIO Carvedilol (Carvedilol 3.125 Mg Tablet) 3.125 mg PO BID [facility]; Protocol Last Admin: 08/30/22 08:43 Dose: 3.125 mg Documented By: TONIO Dextrose (Dextrose 50 % 25 Gm/50 Ml Vial) 25 gm IVPUSH Q15M PRN; Protocol PRN Reason: per Hypoglycemia Standing Ord. Doxycycline Monohydrate (Doxycycline Monohydrate 100 Mg Capsule) 100 mg PO Q12H [facility] Last Admin: 08/30/22 00:30 Dose: 100 mg Documented By: COBBOE Fluoxetine HCl (Fluoxetine Hcl 20 Mg Capsule) 20 mg PO DAILY [facility] Last Admin: 08/30/22 08:43 Dose: 20 mg Documented By: TONIO Glucose (Glucose Gel 15 Gm Gel..Gram.) 15 gm PO Q15M PRN; Protocol PRN Reason: per Hypoglycemia Standing Ord. Ceftriaxone Sodium 1 gm/ (Sodium Chloride) 50 mls @ 100 mls/hr IV Q24H [facility] Last Infusion: 08/29/22 13:12 Dose: 0 mls/hr Documented By: TRINIDAD Insulin Glargine (Insulin Glargine,Hum.Rec.Anlog 100 Unit/Ml 10 Ml Vial) 10 unit SUBCUT DAILY [facility] Last Admin: 08/30/22 08:42 Dose: 10 unit Documented By: TONIO Insulin Human Lispro (Insulin Lispro 100 Unit/Ml 3 Ml Vial) 0 unit SUBCUT QIDACHS [facility]; Protocol Last Admin: 08/30/22 08:32 Dose: Not Given Documented By: TONIO Non-Admin Reason: No Insulin Coverage Melatonin (Melatonin 3 Mg Tablet) 6 mg PO BEDTIME PRN PRN Reason: Insomnia Ondansetron HCl (Ondansetron Hcl 4 Mg/2 Ml Vial) 4 mg IVPUSH Q8H PRN PRN Reason: Nausea and Vomiting Pharmacy Consult (Consult Rx Perform Med Rec) 1 each MISCELLANE ONCE PRN PRN Reason: Consult order Sodium Chloride (0.9 % Sodium Chloride Flush 3 Ml Syringe) 3 ml IVFLUSH QSHIFT [facility] Last Admin: 08/30/22 08:44 Dose: 3 ml Documented By: TONIO Vitamin D (Cholecalciferol (Vitamin D3) 25 Mcg Tablet) 50 mcg PO DAILY [facility] Last Admin: 08/30/22 08:42 Dose: 50 mcg Documented By: TONIO Labs 08/26/22 06:37 08/29/22 05:32 Labs: Laboratory Results - last 24 hr 08/29/22 08/29/22 08/29/22 11:19 16:45 20:56 POC Glucose 241 H 78 189 H 08/30/22 08/30/22 07:07 11:03 POC Glucose 109 205 H Microbiology Microbiology Results: Microbiology 08/27/22 07:55 Blood Culture - Preliminary Blood - Venous No growth after 48 hours. 08/27/22 08:02 Blood Culture - Preliminary Blood - Venous No growth after 48 hours. 08/25/22 19:40 Blood Culture - Final Blood - Venous Staphylococcus epidermidis 08/25/22 19:40 Blood Culture - Final Blood - Venous Staphylococcus epidermidis Assessment and Plan (1) Community acquired pneumonia: Status: Acute Plan This is a 67-year-old male with pertinent history of ESRD on hemodialysis, coronary artery disease with ischemic cardiomyopathy and congestive heart failure with reduced ejection fraction, insulin-dependent diabetes mellitus, paroxysmal atrial fibrillation on Eliquis, mood disorder who presents to the emergency department for evaluation of dyspnea. Acute hypoxemic respiratory failure secondary to community-acquired pneumonia no sepsis Monitor oxygen saturation and wean as tolerated. Currently on 2 L supplemental oxygen. Rocephin and doxy coag neg staph 2/2 was on vanco initially new cx neg after 48 hrs elevated LFTs abdominal US showing concern over acute cholecystitis, negative HIDA hold statin LFTs trending down toxic metabolic encephalopathy seems a little better today brain CT showing chronic stroke, pt denies h/o cva, but not a great historian attempted to call family for more information again. one number not in service, left message again for Alysia Nunez listed as HCP acute lactic acidosis r/t hypoxia not sepsis ESRD on hemodialysis typical HD schedule TTHSa via HD catheter nephrology following Chronic HFrEF Continue home Bumex, beta-benjamin Insulin-dependent diabetes mellitus: Continue basal regimen Follow POCs, with sliding scale insulin. Elevated troponin type 2 due to increased demand and CKD lower then previous Paroxysmal atrial fibrillation continue Eliquis and amiodarone Mood disorder Continue fluoxetine Chronic normocytic anemia: H/H at baseline Hemoglobin above transfusion threshold DVT prophylaxis: Eliquis Full code Low-salt diet attending - dr. Vielka MOTLEY Plan for STR patient requires ongoing inpatient hospitalization for IV antibiotics and supplemental oxygen, surgical evaluation Time Spent With Patient Time: Total time managing care of this patient today ____ minutes. Quality Stroke Does the patient have a stroke diagnosis?: No VTE Prior VTE?: No VTE Risk Level:: Medical - moderate - high VTE Device Contraindication: Treatment Not Indicated VTE Drug Contraindication: N/A - Med Ordered
[2022-08-30] MEDS: Insulin Lispro 100 UNIT/ML 3 ML VIAL SUBCUT ×2 (12:30→16:53)
[2022-08-30] MEDS: cefTRIAXone sodium 1 GM in 0.9 % Sodium Chloride 50 ML IV (12:31)
--- NOTE | 2022-08-30 13:03 | MHC.CM.PN ---
PT IS READY TO DC HOWEVER DOES NOT HAVE A STR BED PT REQUIRES HD JEREMIAH SAUCEDO DOES NOT HAVE A BED REFERRAL SENT TO [facility] IS REVIEWING, HOWEVER THEY WOULD NOT BE ABLE TO TAKE PT PRIOR TO TOMORROW WHEN TRANSPORT TO HD CAN BE ARRANGED/CONFIRMED
[2022-08-30 15:52] VITALS: BP 136/76; PULSE 55; RESP 18; TEMP 36.1; O2SAT 99
[2022-08-30 16:38] LABS: Glucose, Whole Blood 179 mg/dL (60-115)
[2022-08-30 19:27] VITALS: BP 127/73; PULSE 56; RESP 18; TEMP 36.2; O2SAT 97
[2022-08-30 20:18] LABS: Glucose, Whole Blood 100 mg/dL (60-115)
--- NOTE | 2022-08-30 21:07 | PC.NURSE ---
HR 56 held Carvedilol per parameter
[2022-08-31] MEDS: 0.9 % Sodium Chloride Flush 3 ML SYRINGE IVFLUSH ×3 (00:17→16:53)
[2022-08-31] MEDS: Doxycycline Monohydrate 100 MG CAPSULE PO (00:22)
[2022-08-31 03:58] VITALS: BP 157/88; PULSE 60; RESP 17; TEMP 36.1; O2SAT 96
[2022-08-31 07:10] VITALS: BP 135/81; PULSE 59; RESP 20; TEMP 36.3; O2SAT 92
[2022-08-31 07:15] LABS: Glucose, Whole Blood 95 mg/dL (60-115)
[2022-08-31] MEDS: FLUoxetine HCl 20 MG CAPSULE PO (07:58)
[2022-08-31] MEDS: Apixaban 2.5 MG TABLET PO ×2 (07:58→20:55)
[2022-08-31] MEDS: Amiodarone HCL 200 MG TABLET PO (07:58)
[2022-08-31] MEDS: carvediloL 3.125 MG TABLET PO (07:58)
[2022-08-31] MEDS: Cholecalciferol (Vitamin D3) 25 MCG TABLET 50 MCG PO (07:58)
[2022-08-31] MEDS: Bumetanide 1 MG TABLET PO ×2 (07:58→17:04)
[2022-08-31] MEDS: Insulin Glargine,Hum.rec.anlog 100 UNIT/ML 10 ML VIAL 10 UNIT SUBCUT (07:59)
--- NOTE | 2022-08-31 10:06 | W.PM.DNNEP ---
Subjective Subjective This patient was seen during dialysis. Interval history: seen and examined this morning follow up for pneumonia still seems somewhat confused this morning, but able to answer more questions not a reliable historian Physical Exam Vital Signs: Vital Signs: Last Vital Signs Temp 97.4 F 08/31/22 07:10 Pulse 59 08/31/22 07:10 Resp 20 08/31/22 07:10 BP 135/81 08/31/22 07:10 Pulse Ox 92 08/31/22 07:10 O2 Del Method 08/31/22 07:10 O2 Flow Rate 2.0 08/27/22 07:58 Oxygen Flow Rate 2 08/25/22 17:41 BMI result Body Mass Index 22.6 Const: General: no acute distress HEENT: Head: Yes normocephalic and Yes atraumatic Neck: Neck: Yes supple Resp: Auscultation: diminished lung sounds Cardio: Heart sounds: S1 normal heart sound present and S2 normal heart sound present GI: Palpation (GI): Soft to palpation and nontender Extrem: General: Yes no pedal edema Assessment & Plan Assessment and plan (1) ESRD (end stage renal disease): Status: Acute (2) HFrEF (heart failure with reduced ejection fraction): Status: Acute (3) Anemia: Status: Acute Plan usually has HD at [place] HD unit t-t-s via dialysis tunnelled catheeter admitted with PNA known HFrEF REC HD per schedule renal diet phosphate binders [facility] Await placement Time Spent With Patient Time: Total time managing care of this patient today ____ minutes. Procedures Date of Service Date of Service: 08/31/22
--- NOTE | 2022-08-31 11:34 | HO.PM.IMPN ---
Subjective Subjective Date of Service: 08/31/22 Interval History: seen and examined this morning follow up for pneumonia still seems somewhat confused this morning, but able to answer more questions not a reliable historian Cardiovascular Cardiovascular: Reports chest pain and Reports palpitations Gastrointestinal Gastrointestinal: Reports abdominal pain Endocrine Endocrine: Reports palpitations Physical Exam Vital Signs: Vital Signs: Last Vital Signs Temp 97.4 F 08/31/22 07:10 Pulse 59 08/31/22 07:10 Resp 20 08/31/22 07:10 BP 135/81 08/31/22 07:10 Pulse Ox 92 08/31/22 07:10 O2 Del Method 08/31/22 07:10 O2 Flow Rate 2.0 08/27/22 07:58 Oxygen Flow Rate 2 08/25/22 17:41 BMI result Body Mass Index 22.6 Appearing in no acute distress lung sounds are clear to auscultation heart regular rate rhythm, clear S1, S2 positive bowel sounds, abdomen is soft, nontender neuro patient is alert, confused Objective Data Active Medications Acetaminophen (Acetaminophen 325 Mg Tablet) 650 mg PO Q6H PRN PRN Reason: Pain, Mild (Pain Scale 1-3) Amiodarone HCl (Amiodarone Hcl 200 Mg Tablet) 200 mg PO DAILY [facility] Last Admin: 08/31/22 07:58 Dose: 200 mg Documented By: TONIO Apixaban (Apixaban 2.5 Mg Tablet) 2.5 mg PO BID [facility] Last Admin: 08/31/22 07:58 Dose: 2.5 mg Documented By: TONIO Atorvastatin Calcium (Atorvastatin Calcium 80 Mg Tablet) 80 mg PO BEDTIME [facility] Last Admin: 08/25/22 21:41 Dose: 80 mg Documented By: MADDENL Bumetanide (Bumetanide 1 Mg Tablet) 1 mg PO BIDWM [facility]; Protocol Last Admin: 08/31/22 07:58 Dose: 1 mg Documented By: TONIO Carvedilol (Carvedilol 3.125 Mg Tablet) 3.125 mg PO BID [facility]; Protocol Last Admin: 08/31/22 07:58 Dose: 3.125 mg Documented By: TONIO Dextrose (Dextrose 50 % 25 Gm/50 Ml Vial) 25 gm IVPUSH Q15M PRN; Protocol PRN Reason: per Hypoglycemia Standing Ord. Doxycycline Monohydrate (Doxycycline Monohydrate 100 Mg Capsule) 100 mg PO Q12H [facility] Last Admin: 08/31/22 00:22 Dose: 100 mg Documented By: GISELLA Fluoxetine HCl (Fluoxetine Hcl 20 Mg Capsule) 20 mg PO DAILY [facility] Last Admin: 08/31/22 07:58 Dose: 20 mg Documented By: TONIO Glucose (Glucose Gel 15 Gm Gel..Gram.) 15 gm PO Q15M PRN; Protocol PRN Reason: per Hypoglycemia Standing Ord. Ceftriaxone Sodium 1 gm/ (Sodium Chloride) 50 mls @ 100 mls/hr IV Q24H [facility] Last Infusion: 08/30/22 13:15 Dose: 100 mls/hr Documented By: NICOLE Insulin Glargine (Insulin Glargine,Hum.Rec.Anlog 100 Unit/Ml 10 Ml Vial) 10 unit SUBCUT DAILY [facility] Last Admin: 08/31/22 07:59 Dose: 10 unit Documented By: TONIO Insulin Human Lispro (Insulin Lispro 100 Unit/Ml 3 Ml Vial) 0 unit SUBCUT QIDACHS [facility]; Protocol Last Admin: 08/31/22 07:17 Dose: Not Given Documented By: TONIO Non-Admin Reason: No Insulin Coverage Melatonin (Melatonin 3 Mg Tablet) 6 mg PO BEDTIME PRN PRN Reason: Insomnia Ondansetron HCl (Ondansetron Hcl 4 Mg/2 Ml Vial) 4 mg IVPUSH Q8H PRN PRN Reason: Nausea and Vomiting Pharmacy Consult (Consult Rx Perform Med Rec) 1 each MISCELLANE ONCE PRN PRN Reason: Consult order Sodium Chloride (0.9 % Sodium Chloride Flush 3 Ml Syringe) 3 ml IVFLUSH QSHIFT [facility] Last Admin: 08/31/22 00:17 Dose: 3 ml Documented By: GISELLA Vitamin D (Cholecalciferol (Vitamin D3) 25 Mcg Tablet) 50 mcg PO DAILY [facility] Last Admin: 08/31/22 07:58 Dose: 50 mcg Documented By: TONIO Labs 08/26/22 06:37 08/29/22 05:32 Labs: Laboratory Results - last 24 hr 08/30/22 08/30/22 08/31/22 16:35 20:14 07:07 POC Glucose 179 H 100 95 Assessment and Plan (1) Community acquired pneumonia: Status: Acute Plan This is a 67-year-old male with pertinent history of ESRD on hemodialysis, coronary artery disease with ischemic cardiomyopathy and congestive heart failure with reduced ejection fraction, insulin-dependent diabetes mellitus, paroxysmal atrial fibrillation on Eliquis, mood disorder who presents to the emergency department for evaluation of dyspnea. Acute hypoxemic respiratory failure secondary to community-acquired pneumonia. Resolved no sepsis s/p Rocephin and doxy, completed course of abx wean oxygen coag neg staph 2/ was on vanco initially new cx neg after 48 hrs elevated LFTs abdominal US showing concern over acute cholecystitis, negative HIDA hold statin LFTs trending down toxic metabolic encephalopathy seems a little better today brain CT showing chronic stroke, pt denies h/o cva, but not a great historian attempted to call family for more information again. one number not in service, left message again for Alysia Nunez listed as HCP acute lactic acidosis r/t hypoxia not sepsis ESRD on hemodialysis typical HD schedule TTHSa via HD catheter nephrology following Chronic HFrEF Continue home Bumex, beta-benjamin Insulin-dependent diabetes mellitus: Continue basal regimen Follow POCs, with sliding scale insulin. Elevated troponin type 2 due to increased demand and CKD lower then previous Paroxysmal atrial fibrillation continue Eliquis and amiodarone Mood disorder Continue fluoxetine Chronic normocytic anemia: H/H at baseline Hemoglobin above transfusion threshold DVT prophylaxis: Eliquis Full code Low-salt diet attending - dr. Mojica DISPO Plan for STR when bed available patient requires ongoing inpatient hospitalization for IV antibiotics and supplemental oxygen, surgical evaluation Time Spent With Patient Time: Total time managing care of this patient today ____ minutes. Quality Stroke Does the patient have a stroke diagnosis?: No VTE Prior VTE?: No VTE Risk Level:: Medical - moderate - high VTE Device Contraindication: Treatment Not Indicated VTE Drug Contraindication: N/A - Med Ordered
--- NOTE | 2022-08-31 12:01 | MHC.CM.PN ---
Per ROUNDS discussion, Patient is medically cleared for dc and PT is recommending STR. No SNF bed offers as of yet, CM will follow. 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
[2022-08-31 13:03] VITALS: BP 135/73; PULSE 54; RESP 16; TEMP 36.1; O2SAT 94
[2022-08-31 14:19] LABS: Glucose, Whole Blood 124 mg/dL (60-115)
[2022-08-31 15:16] VITALS: BP 140/70; PULSE 60; RESP 18; TEMP 36.1; O2SAT 100
[2022-08-31 16:53] LABS: Glucose, Whole Blood 209 mg/dL (60-115)
[2022-08-31] MEDS: Insulin Lispro 100 UNIT/ML 3 ML VIAL SUBCUT (17:05)
[2022-08-31 19:50] VITALS: BP 123/73; PULSE 57; RESP 17; TEMP 36; O2SAT 100
[2022-08-31 20:27] LABS: Glucose, Whole Blood 136 mg/dL (60-115)
[2022-09-01] MEDS: 0.9 % Sodium Chloride Flush 3 ML SYRINGE IVFLUSH ×3 (00:10→16:48)
[2022-09-01 03:08] VITALS: BP 147/83; PULSE 65; RESP 17; TEMP 36; O2SAT 96
[2022-09-01 07:33] LABS: Glucose, Whole Blood 85 mg/dL (60-115)
[2022-09-01 08:00] VITALS: BP 138/85; PULSE 65; RESP 18; TEMP 36.9; O2SAT 92
--- NOTE | 2022-09-01 08:29 | MHC.CM.PN ---
Patient is medically cleared for dc to SNF/STR; no snf bed offers as of yet. CM has broadened and updated SNF search and will continue to follow.
[2022-09-01] MEDS: Cholecalciferol (Vitamin D3) 25 MCG TABLET 50 MCG PO (09:01)
[2022-09-01] MEDS: Bumetanide 1 MG TABLET PO ×2 (09:01→16:48)
[2022-09-01] MEDS: Apixaban 2.5 MG TABLET PO ×2 (09:01→20:59)
[2022-09-01] MEDS: Amiodarone HCL 200 MG TABLET PO (09:01)
[2022-09-01] MEDS: FLUoxetine HCl 20 MG CAPSULE PO (09:01)
[2022-09-01] MEDS: carvediloL 3.125 MG TABLET PO ×2 (09:01→20:59)
[2022-09-01] MEDS: Insulin Glargine,Hum.rec.anlog 100 UNIT/ML 10 ML VIAL 10 UNIT SUBCUT (09:02)
--- NOTE | 2022-09-01 10:34 | PM.PNNEP ---
Subjective Subjective Date of Service: 09/02/22 Interval history: seen and examined this morning follow up for pneumonia still seems somewhat confused this morning, but able to answer more questions not a reliable historian Physical Exam Vital Signs: Vital Signs: Last Vital Signs Temp 98.4 F 09/01/22 08:00 Pulse 65 09/01/22 08:00 Resp 18 09/01/22 08:00 BP 138/85 09/01/22 08:00 Pulse Ox 92 09/01/22 08:00 O2 Del Method 09/01/22 08:00 O2 Flow Rate 2.0 08/27/22 07:58 Oxygen Flow Rate 2 08/25/22 17:41 BMI result Body Mass Index 22.6 Const: General: no acute distress HEENT: Head: Yes normocephalic and Yes atraumatic Neck: Neck: Yes supple Resp: Auscultation: diminished lung sounds Cardio: Heart sounds: S1 normal heart sound present and S2 normal heart sound present GI: Palpation (GI): Soft to palpation and nontender Extrem: General: Yes no pedal edema Objective Data Labs 08/26/22 06:37 08/29/22 05:32 Labs: Laboratory Results - last 24 hr 08/31/22 08/31/22 08/31/22 12:58 16:47 20:21 POC Glucose 124 H 209 H 136 H 09/01/22 07:29 POC Glucose 85 Microbiology Microbiology Results: Microbiology 08/27/22 08:02 Blood - Venous Blood Culture - Final No growth after 5 days. 08/27/22 07:55 Blood - Venous Blood Culture - Final No growth after 5 days. 08/25/22 19:40 Blood - Venous Blood Culture - Final Staphylococcus epidermidis 08/25/22 19:40 Blood - Venous Blood Culture - Final Staphylococcus epidermidis Procedures Date of Service Date of Service: 09/01/22 Assessment & Plan Assessment and plan (1) ESRD (end stage renal disease): Status: Acute (2) HFrEF (heart failure with reduced ejection fraction): Status: Acute (3) Anemia: Status: Acute Plan usually has HD at [place] HD unit t-t-s via dialysis tunnelled catheeter admitted with PNA known HFrEF REC HD per schedule renal diet phosphate binders [facility] Await placement Time Spent With Patient Time: Total time managing care of this patient today ____ minutes. Progress Note: Quality Stroke Does the patient have a stroke diagnosis?: No
[2022-09-01 11:29] LABS: Glucose, Whole Blood 187 mg/dL (60-115)
[2022-09-01] MEDS: Insulin Lispro 100 UNIT/ML 3 ML VIAL SUBCUT (12:07)
--- NOTE | 2022-09-01 13:32 | MHC.CLN ---
F/U DIET PER DIABETIC, RENAL PARAMETERS WITH DIALYSIS. DIET=DIABETIC 1800 KCAL, 2 GRAM SODIUM, LOW POTASSIUM, LOW PHOSPHORUS. INTAKE VARIABLE, WITH MOST MEALS 50-100%. DIALYSIS T, TH, SAT. CONTINUE TO FOLLOW FOR INTAKE AND WEIGHT.
--- NOTE | 2022-09-01 15:19 | P.PNIM_ITS ---
Subjective Subjective Date of Service: 09/01/22 Interval History: No acute issues overnight. (per nursing) remains confused Review of Systems Unable to obtain Physical Exam Vital Signs: Vital Signs: Last Vital Signs Temp 98.4 F 09/01/22 08:00 Pulse 65 09/01/22 08:00 Resp 18 09/01/22 08:00 BP 138/85 09/01/22 08:00 Pulse Ox 92 09/01/22 08:00 O2 Del Method 09/01/22 08:00 O2 Flow Rate 2.0 08/27/22 07:58 Oxygen Flow Rate 2 08/25/22 17:41 BMI result Body Mass Index 22.6 Const: Other: Awake alert intermittently confused Resp: Other: Diminished left base with scant crackles Cardio: Other: No S4; positive S1-S2; no S3 murmurs rubs gallops GI: Other: Soft nontender nondistended normoactive bowel sounds Extrem: Other: No edema bilaterally Objective Data Active Medications Acetaminophen (Acetaminophen 325 Mg Tablet) 650 mg PO Q6H PRN PRN Reason: Pain, Mild (Pain Scale 1-3) Amiodarone HCl (Amiodarone Hcl 200 Mg Tablet) 200 mg PO DAILY [facility] Last Admin: 09/01/22 09:01 Dose: 200 mg Documented By: TONIO Apixaban (Apixaban 2.5 Mg Tablet) 2.5 mg PO BID [facility] Last Admin: 09/01/22 09:01 Dose: 2.5 mg Documented By: TONIO Atorvastatin Calcium (Atorvastatin Calcium 80 Mg Tablet) 80 mg PO BEDTIME [facility] Last Admin: 08/25/22 21:41 Dose: 80 mg Documented By: MADDENL Bumetanide (Bumetanide 1 Mg Tablet) 1 mg PO BIDWM [facility]; Protocol Last Admin: 09/01/22 09:01 Dose: 1 mg Documented By: TONIO Carvedilol (Carvedilol 3.125 Mg Tablet) 3.125 mg PO BID [facility]; Protocol Last Admin: 09/01/22 09:01 Dose: 3.125 mg Documented By: TONIO Dextrose (Dextrose 50 % 25 Gm/50 Ml Vial) 25 gm IVPUSH Q15M PRN; Protocol PRN Reason: per Hypoglycemia Standing Ord. Fluoxetine HCl (Fluoxetine Hcl 20 Mg Capsule) 20 mg PO DAILY [facility] Last Admin: 09/01/22 09:01 Dose: 20 mg Documented By: TONIO Glucose (Glucose Gel 15 Gm Gel..Gram.) 15 gm PO Q15M PRN; Protocol PRN Reason: per Hypoglycemia Standing Ord. Insulin Glargine (Insulin Glargine,Hum.Rec.Anlog 100 Unit/Ml 10 Ml Vial) 10 un it SUBCUT DAILY [facility] Last Admin: 09/01/22 09:02 Dose: 10 unit Documented By: TONIO Insulin Human Lispro (Insulin Lispro 100 Unit/Ml 3 Ml Vial) 0 unit SUBCUT QIDACHS [facility]; Protocol Last Admin: 09/01/22 12:07 Dose: 2 unit Documented By: TONIO Melatonin (Melatonin 3 Mg Tablet) 6 mg PO BEDTIME PRN PRN Reason: Insomnia Ondansetron HCl (Ondansetron Hcl 4 Mg/2 Ml Vial) 4 mg IVPUSH Q8H PRN PRN Reason: Nausea and Vomiting Pharmacy Consult (Consult Rx Perform Med Rec) 1 each MISCELLANE ONCE PRN PRN Reason: Consult order Sodium Chloride (0.9 % Sodium Chloride Flush 3 Ml Syringe) 3 ml IVFLUSH QSHIFT [facility] Last Admin: 09/01/22 09:01 Dose: 3 ml Documented By: TONIO Vitamin D (Cholecalciferol (Vitamin D3) 25 Mcg Tablet) 50 mcg PO DAILY [facility] Last Admin: 09/01/22 09:01 Dose: 50 mcg Documented By: TONIO Labs 08/26/22 06:37 08/29/22 05:32 Labs: Laboratory Results - last 24 hr 08/31/22 08/31/22 09/01/22 16:47 20:21 07:29 POC Glucose 209 H 136 H 85 09/01/22 11:26 POC Glucose 187 H Microbiology Microbiology Results: Microbiology 08/27/22 08:02 Blood Culture - Final Blood - Venous No growth after 5 days. 08/27/22 07:55 Blood Culture - Final Blood - Venous No growth after 5 days. Assessment and Plan (1) Community acquired pneumonia: Status: Acute (2) ESRD (end stage renal disease): Status: Acute (3) Type 2 diabetes mellitus with unspecified complications: Status: Acute Plan This is a 67-year-old male with pertinent history of ESRD on hemodialysis, coronary artery disease with ischemic cardiomyopathy and congestive heart failure with reduced ejection fraction, insulin-dependent diabetes mellitus, paroxysmal atrial fibrillation on Eliquis, mood disorder who presents to the emergency department for evaluation of dyspnea. Found to have left lower no pneumonia 1.Acute hypoxemic respiratory failure secondary to community-acquired pneumonia... Resolved -wean O2 as tolerated 2. Staph epidermis bacteremia -repeat cultures negative x5 days 3.Elevated LFTs -trending downward -HIDA negative -no surgical indication per surgery 4.Toxic metabolic encephalopathy -slowly improving -will need placement; family elusive 5.ESRD on hemodialysis -HD Tuesday -follow renals/divalents 6.Insulin-dependent diabetes mellitus: -acceptable control on current therapies -Lantus as ordered/lispro correctional scale -adjust as indicated 7.Paroxysmal atrial fibrillation continue Eliquis and amiodarone Eliquis Full code DISPO Plan for STR when bed available; continued admit for safe placement Time Spent With Patient Time: Total time managing care of this patient today ____ minutes. Quality Stroke Does the patient have a stroke diagnosis?: No VTE Prior VTE?: No VTE Risk Level:: Medical - moderate - high VTE Device Contraindication: Treatment Not Indicated VTE Drug Contraindication: N/A - Med Ordered
[2022-09-01 15:43] VITALS: BP 121/72; PULSE 59; RESP 18; TEMP 36.7; O2SAT 100
[2022-09-01 16:28] LABS: Glucose, Whole Blood 101 mg/dL (60-115)
[2022-09-01 20:00] VITALS: BP 139/88; PULSE 84; RESP 18; TEMP 36; O2SAT 98
[2022-09-01 21:01] LABS: Glucose, Whole Blood 135 mg/dL (60-115)
[2022-09-02] MEDS: 0.9 % Sodium Chloride Flush 3 ML SYRINGE IVFLUSH ×3 (00:09→18:21)
[2022-09-02 04:00] VITALS: BP 140/70; PULSE 80; RESP 18; TEMP 36.2; O2SAT 97
[2022-09-02 06:36] LABS: MANUAL DIFF FLAG NO
[2022-09-02 06:41] LABS: Basophils Percent Auto 0.4 % (0-2); Eosinophils Absolute Auto 0.1 X10*3/uL (0.0-0.4); Eosinophils Percent Auto 0.9 % (0-4); Hematocrit 34.1 % (42.0-52.0); Hemoglobin 11.5 g/dl (14.0-18.0); Imm Gran Abs Auto 0.05 X10*3/uL (0.00-0.03); Imm Gran Pct Auto 0.7 % (0.0-0.4); Lymphocytes Absolute Auto 2.3 X10*3/uL (1.2-4.9); Lymphocytes Percent Auto 30.4 % (20-40); Mean Corpuscular HGB Conc 33.7 g/dl (31.0-36.0); Mean Corpuscular Hemoglobin 31.7 pg (27.0-33.0); Mean Corpuscular Volume 93.9 fL (80.0-98.0); Mean Platelet Volume 9.5 fL (9.4-12.4); Monocytes Absolute Auto 0.6 X10*3/uL (0.1-1.2); Neutrophils Absolute Auto 4.5 x10*3/uL (2.0-8.3); Neutrophils Percent Auto 59.6 % (45-73); Platelet Count 145 X10*3/uL (160-400); Red Blood Count 3.63 X10*6/uL (4.60-5.80); White Blood Count 7.5 X10*3/uL (4.8-10.8)
[2022-09-02 07:16] VITALS: BP 139/84; PULSE 58; RESP 16; TEMP 36.2; O2SAT 96
[2022-09-02 07:52] LABS: Alanine Aminotransferase 48 U/L (0-40); Albumin Level 2.9 g/dL (3.5-5.0); Alkaline Phosphatase 85 U/L (39-117); Anion Gap 17 (12-20); Aspartate Amino Transferase 19 U/L (5-37); Bilirubin Total 0.9 mg/dL (0.0-1.0); Blood Urea Nitrogen 46 mg/dL (9-16); Calcium 7.9 mg/dL (8.4-10.2); Carbon Dioxide 19 mmol/L (22-29); Chloride 98 mmol/L (96-108); Glucose Fasting 82 mg/dL (60-99); Potassium 4.3 mmol/L (3.3-5.1); Sodium 130 mmol/L (135-145); Total Protein 6.7 g/dL (6.5-8.0)
[2022-09-02 07:57] LABS: Creatinine Clr Calc Pharmacy 10.3; Estimated Glomerular Filt Rate 11
[2022-09-02 08:00] LABS: Glucose, Whole Blood 87 mg/dL (60-115)
[2022-09-02 08:10] LABS: Glucose, Whole Blood 83 mg/dL (60-115)
[2022-09-02] MEDS: Bumetanide 1 MG TABLET PO ×2 (08:17→18:28)
[2022-09-02] MEDS: FLUoxetine HCl 20 MG CAPSULE PO (08:17)
[2022-09-02] MEDS: Amiodarone HCL 200 MG TABLET PO (08:17)
[2022-09-02] MEDS: Apixaban 2.5 MG TABLET PO ×2 (08:18→21:05)
[2022-09-02] MEDS: Cholecalciferol (Vitamin D3) 25 MCG TABLET 50 MCG PO (08:18)
[2022-09-02 08:27] VITALS: BP 141/87; PULSE 58; RESP 18; TEMP 36.3; O2SAT 97
[2022-09-02 11:46] LABS: Glucose, Whole Blood 155 mg/dL (60-115)
[2022-09-02] MEDS: Insulin Lispro 100 UNIT/ML 3 ML VIAL SUBCUT ×3 (12:28→21:05)
--- NOTE | 2022-09-02 13:12 | PM.PNNEP ---
Subjective Subjective Date of Service: 09/02/22 Interval history: No acute issues overnight. (per nursing) remains confused Physical Exam Vital Signs: Vital Signs: Last Vital Signs Temp 97.4 F 09/02/22 08:27 Pulse 58 09/02/22 08:27 Resp 18 09/02/22 08:27 BP 141/87 H 09/02/22 08:27 Pulse Ox 97 09/02/22 08:27 O2 Del Method 09/02/22 08:27 O2 Flow Rate 2.0 08/27/22 07:58 Oxygen Flow Rate 2 08/25/22 17:41 BMI result Body Mass Index 22.6 Const: General: no acute distress HEENT: Head: Yes normocephalic and Yes atraumatic Neck: Neck: Yes supple Resp: Auscultation: diminished lung sounds Cardio: Heart sounds: S1 normal heart sound present and S2 normal heart sound present GI: Palpation (GI): Soft to palpation and nontender Extrem: General: Yes no pedal edema Objective Data Labs 09/02/22 05:54 09/02/22 05:54 Labs: Laboratory Results - last 24 hr 09/01/22 09/01/22 09/02/22 16:24 20:56 05:54 WBC 7.5 RBC 3.63 L Hgb 11.5 L Hct 34.1 L MCV 93.9 MCH 31.7 MCHC 33.7 RDW 17.0 H Plt Count 145 L MPV 9.5 Immature Gran % (Auto) 0.7 H Neut % (Auto) 59.6 Lymph % (Auto) 30.4 [place] % (Auto) 8.0 Eos % (Auto) 0.9 Baso % (Auto) 0.4 Lymph # (Auto) 2.3 [place] # (Auto) 0.6 Eos # (Auto) 0.1 Baso # (Auto) 0.0 Abs Immat Gran (auto) 0.05 H Absolute Neuts (auto) 4.5 Absolute Nucleated RBC 0.000 Nucleated RBC % (auto) 0.0 Sodium Potassium Chloride Carbon Dioxide Anion Gap BUN Creatinine Estim Creat Clear Calc Estimated GFR POC Glucose 101 135 H Fasting Glucose Calcium Total Bilirubin AST ALT Alkaline Phosphatase Total Protein Albumin 09/02/22 09/02/22 09/02/22 05:54 07:15 07:45 WBC RBC Hgb Hct MCV MCH MCHC RDW Plt Count MPV Immature Gran % (Auto) Neut % (Auto) Lymph % (Auto) [place] % (Auto) Eos % (Auto) Baso % (Auto) Lymph # (Auto) [place] # (Auto) Eos # (Auto) Baso # (Auto) Abs Immat Gran (auto) Absolute Neuts (auto) Absolute Nucleated RBC Nucleated RBC % (auto) Sodium 130 L Potassium 4.3 Chloride 98 Carbon Dioxide 19 L Anion Gap 17 BUN 46 H Creatinine 5.20 H* Estim Creat Clear Calc 10.3 Estimated GFR 11 POC Glucose 87 83 Fasting Glucose 82 Calcium 7.9 L Total Bilirubin 0.9 AST 19 ALT 48 H Alkaline Phosphatase 85 Total Protein 6.7 Albumin 2.9 L 09/02/22 11:38 WBC RBC Hgb Hct MCV MCH MCHC RDW Plt Count MPV Immature Gran % (Auto) Neut % (Auto) Lymph % (Auto) [place] % (Auto) Eos % (Auto) Baso % (Auto) Lymph # (Auto) [place] # (Auto) Eos # (Auto) Baso # (Auto) Abs Immat Gran (auto) Absolute Neuts (auto) Absolute Nucleated RBC Nucleated RBC % (auto) Sodium Potassium Chloride Carbon Dioxide Anion Gap BUN Creatinine Estim Creat Clear Calc Estimated GFR POC Glucose 155 H Fasting Glucose Calcium Total Bilirubin AST ALT Alkaline Phosphatase Total Protein Albumin Microbiology Microbiology Results: Microbiology 08/27/22 08:02 Blood - Venous Blood Culture - Final No growth after 5 days. 08/27/22 07:55 Blood - Venous Blood Culture - Final No growth after 5 days. 08/25/22 19:40 Blood - Venous Blood Culture - Final Staphylococcus epidermidis 08/25/22 19:40 Blood - Venous Blood Culture - Final Staphylococcus epidermidis Procedures Date of Service Date of Service: 09/02/22 Assessment & Plan Assessment and plan (1) ESRD (end stage renal disease): Status: Acute (2) HFrEF (heart failure with reduced ejection fraction): Status: Acute (3) Anemia: Status: Acute Plan usually has HD at [place] HD unit t-t-s via dialysis tunnelled catheeter admitted with PNA known HFrEF Hyponatremia- due to decreased cH2O REC HD per schedule renal diet phosphate binders WAGNER Restrict hypotonic fluids Await placement Time Spent With Patient Time: Total time managing care of this patient today ____ minutes. Progress Note: Quality Stroke Does the patient have a stroke diagnosis?: No
--- NOTE | 2022-09-02 15:33 | P.PNIM_ITS ---
Subjective Subjective Date of Service: 09/02/22 Interval History: no acute issues overnight. Remains confused but somewhat improved Review of Systems Unable to obtain Physical Exam Vital Signs: Vital Signs: Last Vital Signs Temp 97.4 F 09/02/22 08:27 Pulse 58 09/02/22 08:27 Resp 18 09/02/22 08:27 BP 141/87 H 09/02/22 08:27 Pulse Ox 97 09/02/22 08:27 O2 Del Method 09/02/22 08:27 O2 Flow Rate 2.0 08/27/22 07:58 Oxygen Flow Rate 2 08/25/22 17:41 BMI result Body Mass Index 22.6 Const: Other: Awake alert intermittently confused Resp: Other: Diminished left base with scant crackles Cardio: Other: No S4; positive S1-S2; no S3 murmurs rubs gallops GI: Other: Soft nontender nondistended normoactive bowel sounds Extrem: Other: No edema bilaterally Objective Data Active Medications Acetaminophen (Acetaminophen 325 Mg Tablet) 650 mg PO Q6H PRN PRN Reason: Pain, Mild (Pain Scale 1-3) Amiodarone HCl (Amiodarone Hcl 200 Mg Tablet) 200 mg PO DAILY [facility] Last Admin: 09/02/22 08:17 Dose: 200 mg Documented By: BALWINDER Apixaban (Apixaban 2.5 Mg Tablet) 2.5 mg PO BID [facility] Last Admin: 09/02/22 08:18 Dose: 2.5 mg Documented By: BALWINDER Atorvastatin Calcium (Atorvastatin Calcium 80 Mg Tablet) 80 mg PO BEDTIME [facility] Last Admin: 08/25/22 21:41 Dose: 80 mg Documented By: MADDENKiesha Bumetanide (Bumetanide 1 Mg Tablet) 1 mg PO BIDWM [facility]; Protocol Last Admin: 09/02/22 08:17 Dose: 1 mg Documented By: BALWINDER Carvedilol (Carvedilol 3.125 Mg Tablet) 3.125 mg PO BID [facility]; Protocol Last Admin: 09/02/22 08:25 Dose: Not Given Documented By: BALWINDER Non-Admin Reason: Decreased Heart Rate Dextrose (Dextrose 50 % 25 Gm/50 Ml Vial) 25 gm IVPUSH Q15M PRN; Protocol PRN Reason: per Hypoglycemia Standing Ord. Fluoxetine HCl (Fluoxetine Hcl 20 Mg Capsule) 20 mg PO DAILY [facility] Last Admin: 09/02/22 08:17 Dose: 20 mg Documented By: BALWINDER Glucose (Glucose Gel 15 Gm Gel..Gram.) 15 gm PO Q15M PRN; Protocol PRN Reason: per Hypoglycemia Standing Ord. Insulin Glargine (Insulin Glargine,Hum.Rec.Anlog 100 Unit/Ml 10 Ml Vial) 10 unit SUBCUT DAILY [facility] Last Admin: 09/02/22 08:24 Dose: Not Given Documented By: BALWINDER Non-Admin Reason: No Insulin Coverage Insulin Human Lispro (Insulin Lispro 100 Unit/Ml 3 Ml Vial) 0 unit SUBCUT QIDACHS [facility]; Protocol Last Admin: 09/02/22 12:28 Dose: 2 unit Documented By: BALWINDER Melatonin (Melatonin 3 Mg Tablet) 6 mg PO BEDTIME PRN PRN Reason: Insomnia Ondansetron HCl (Ondansetron Hcl 4 Mg/2 Ml Vial) 4 mg IVPUSH Q8H PRN PRN Reason: Nausea and Vomiting Pharmacy Consult (Consult Rx Perform Med Rec) 1 each MISCELLANE ONCE PRN PRN Reason: Consult order Sodium Chloride (0.9 % Sodium Chloride Flush 3 Ml Syringe) 3 ml IVFLUSH QSHIFT [facility] Last Admin: 09/02/22 08:16 Dose: 3 ml Documented By: BALWINDER Vitamin D (Cholecalciferol (Vitamin D3) 25 Mcg Tablet) 50 mcg PO DAILY [facility] Last Admin: 09/02/22 08:18 Dose: 50 mcg Documented By: BALWINDER Labs 09/02/22 05:54 09/02/22 05:54 Labs: Laboratory Results - last 24 hr 09/01/22 09/01/22 09/02/22 16:24 20:56 05:54 MCV 93.9 MCH 31.7 MCHC 33.7 RDW 17.0 H Plt Count 145 L MPV 9.5 Immature Gran % (Auto) 0.7 H Neut % (Auto) 59.6 Lymph % (Auto) 30.4 [place] % (Auto) 8.0 Eos % (Auto) 0.9 Baso % (Auto) 0.4 Lymph # (Auto) 2.3 [place] # (Auto) 0.6 Eos # (Auto) 0.1 Baso # (Auto) 0.0 Abs Immat Gran (auto) 0.05 H Absolute Neuts (auto) 4.5 Absolute Nucleated RBC 0.000 Nucleated RBC % (auto) 0.0 Anion Gap Estim Creat Clear Calc Estimated GFR POC Glucose 101 135 H Fasting Glucose Calcium Total Bilirubin AST ALT Alkaline Phosphatase Total Protein Albumin 09/02/22 09/02/22 09/02/22 05:54 07:15 07:45 MCV MCH MCHC RDW Plt Count MPV Immature Gran % (Auto) Neut % (Auto) Lymph % (Auto) [place] % (Auto) Eos % (Auto) Baso % (Auto) Lymph # (Auto) [place] # (Auto) Eos # (Auto) Baso # (Auto) Abs Immat Gran (auto) Absolute Neuts (auto) Absolute Nucleated RBC Nucleated RBC % (auto) Anion Gap 17 Estim Creat Clear Calc 10.3 Estimated GFR 11 POC Glucose 87 83 Fasting Glucose 82 Calcium 7.9 L Total Bilirubin 0.9 AST 19 ALT 48 H Alkaline Phosphatase 85 Total Protein 6.7 Albumin 2.9 L 09/02/22 11:38 MCV MCH MCHC RDW Plt Count MPV Immature Gran % (Auto) Neut % (Auto) Lymph % (Auto) [place] % (Auto) Eos % (Auto) Baso % (Auto) Lymph # (Auto) [place] # (Auto) Eos # (Auto) Baso # (Auto) Abs Immat Gran (auto) Absolute Neuts (auto) Absolute Nucleated RBC Nucleated RBC % (auto) Anion Gap Estim Creat Clear Calc Estimated GFR POC Glucose 155 H Fasting Glucose Calcium Total Bilirubin AST ALT Alkaline Phosphatase Total Protein Albumin Assessment and Plan (1) Acute respiratory failure with hypoxia: Status: Acute (2) Bacteremia due to Staphylococcus: Status: Acute (3) ESRD (end stage renal disease): Status: Acute Plan This is a 67-year-old male with pertinent history of ESRD on hemodialysis, coronary artery disease with ischemic cardiomyopathy and congestive heart failure with reduced ejection fraction, insulin-dependent diabetes mellitus, paroxysmal atrial fibrillation on Eliquis, mood disorder who presents to the emergency department for evaluation of dyspnea. Found to have left lower no pneumonia 1.Acute hypoxemic respiratory failure secondary to community-acquired pneumonia... Resolved -wean O2 as tolerated 2. Staph epidermis bacteremia -repeat cultures negative x5 days 3.Elevated LFTs -trending downward -HIDA negative -no surgical indication per surgery 4.Toxic metabolic encephalopathy -slowly improving -will need placement; family elusive 5.ESRD on hemodialysis -HD Tuesday -follow renals/divalents 6.Insulin-dependent diabetes mellitus: -acceptable control on current therapies -Lantus as ordered/lispro correctional scale -adjust as indicated 7.Paroxysmal atrial fibrillation continue Eliquis and amiodarone Eliquis Full code DISPO Plan for STR when bed available; continued admit for safe placement Time Spent With Patient Time: Total time managing care of this patient today ____ minutes. Quality Stroke Does the patient have a stroke diagnosis?: No VTE Prior VTE?: No VTE Risk Level:: Medical - moderate - high VTE Device Contraindication: Treatment Not Indicated VTE Drug Contraindication: N/A - Med Ordered
[2022-09-02 18:12] LABS: Glucose, Whole Blood 162 mg/dL (60-115)
[2022-09-02 19:43] VITALS: BP 144/81; PULSE 60; RESP 17; TEMP 36.2; O2SAT 96
[2022-09-02] MEDS: carvediloL 3.125 MG TABLET PO (21:05)
[2022-09-02 21:18] LABS: Glucose, Whole Blood 174 mg/dL (60-115)
[2022-09-03] MEDS: 0.9 % Sodium Chloride Flush 3 ML SYRINGE IVFLUSH ×4 (00:17→21:04)
[2022-09-03 02:50] VITALS: BP 133/81; PULSE 70; RESP 17; TEMP 36.2; O2SAT 96
[2022-09-03 06:39] LABS: MANUAL DIFF FLAG NO
[2022-09-03 06:57] LABS: Basophils Percent Auto 0.2 % (0-2); Eosinophils Percent Auto 0.2 % (0-4); Hematocrit 34.3 % (42.0-52.0); Hemoglobin 11.4 g/dl (14.0-18.0); Imm Gran Abs Auto 0.06 X10*3/uL (0.00-0.03); Imm Gran Pct Auto 0.6 % (0.0-0.4); Lymphocytes Absolute Auto 1.1 X10*3/uL (1.2-4.9); Lymphocytes Percent Auto 10.3 % (20-40); Mean Corpuscular HGB Conc 33.2 g/dl (31.0-36.0); Mean Corpuscular Hemoglobin 31.5 pg (27.0-33.0); Mean Corpuscular Volume 94.8 fL (80.0-98.0); Mean Platelet Volume 9.5 fL (9.4-12.4); Monocytes Absolute Auto 0.5 X10*3/uL (0.1-1.2); Monocytes Percent Auto 4.1 % (2-11); Neutrophils Absolute Auto 9.2 x10*3/uL (2.0-8.3); Neutrophils Percent Auto 84.6 % (45-73); Platelet Count 137 X10*3/uL (160-400); Red Blood Count 3.62 X10*6/uL (4.60-5.80); Red Cell Distribution Width 17.4 % (11.0-16.0); White Blood Count 10.9 X10*3/uL (4.8-10.8)
[2022-09-03 06:58] VITALS: BP 141/79; PULSE 69; RESP 19; TEMP 36.6; O2SAT 95
[2022-09-03 07:21] LABS: Alanine Aminotransferase 44 U/L (0-40); Alkaline Phosphatase 97 U/L (39-117); Anion Gap 14 (12-20); Aspartate Amino Transferase 19 U/L (5-37); Bilirubin Total 0.9 mg/dL (0.0-1.0); Blood Urea Nitrogen 29 mg/dL (9-16); Calcium 7.7 mg/dL (8.4-10.2); Carbon Dioxide 21 mmol/L (22-29); Chloride 100 mmol/L (96-108); Creatinine Clr Calc Pharmacy 13.2; Estimated Glomerular Filt Rate 15; Glucose Fasting 138 mg/dL (60-99); Potassium 4.3 mmol/L (3.3-5.1); Sodium 131 mmol/L (135-145); Total Protein 6.9 g/dL (6.5-8.0)
[2022-09-03 07:26] LABS: Glucose, Whole Blood 138 mg/dL (60-115)
[2022-09-03] MEDS: Cholecalciferol (Vitamin D3) 25 MCG TABLET 50 MCG PO (08:47)
[2022-09-03] MEDS: Bumetanide 1 MG TABLET PO ×2 (08:47→17:39)
[2022-09-03] MEDS: carvediloL 3.125 MG TABLET PO ×2 (08:47→21:04)
[2022-09-03] MEDS: Amiodarone HCL 200 MG TABLET PO (08:48)
[2022-09-03] MEDS: Apixaban 2.5 MG TABLET PO ×2 (08:48→21:04)
[2022-09-03] MEDS: FLUoxetine HCl 20 MG CAPSULE PO (08:49)
--- NOTE | 2022-09-03 10:46 | MHC.CLN ---
F/U DIET PER DIABETIC, RENAL PARAMETERS WITH DIALYSIS. DIET=DIABETIC 1800 KCAL, 2 GRAM SODIUM, LOW POTASSIUM, LOW PHOSPHORUS. INTAKE VARIABLE, WITH MOST 75%. DIALYSIS T, TH, SAT. CONTINUE TO FOLLOW FOR INTAKE AND WEIGHT.
[2022-09-03 11:11] LABS: Glucose, Whole Blood 207 mg/dL (60-115)
[2022-09-03 11:23] VITALS: BP 141/79; PULSE 69; O2SAT 95
--- NOTE | 2022-09-03 11:30 | P.PNIM_ITS ---
Subjective Subjective Date of Service: 09/03/22 Interval History: minimal confusion; appears to be new baseline Review of Systems Unable to obtain Physical Exam Vital Signs: Vital Signs: Last Vital Signs Temp 97.8 F 09/03/22 06:58 Pulse 69 09/03/22 11:23 Resp 19 09/03/22 06:58 BP 141/79 H 09/03/22 11:23 Pulse Ox 95 09/03/22 11:23 O2 Del Method 09/03/22 06:58 O2 Flow Rate 2.0 08/27/22 07:58 Oxygen Flow Rate 2 08/25/22 17:41 BMI result Body Mass Index 22.6 Const: Other: Awake alert intermittently confused Resp: Other: Diminished left base with scant crackles Cardio: Other: No S4; positive S1-S2; no S3 murmurs rubs gallops GI: Other: Soft nontender nondistended normoactive bowel sounds Extrem: Other: No edema bilaterally Objective Data Active Medications Acetaminophen (Acetaminophen 325 Mg Tablet) 650 mg PO Q6H PRN PRN Reason: Pain, Mild (Pain Scale 1-3) Amiodarone HCl (Amiodarone Hcl 200 Mg Tablet) 200 mg PO DAILY [facility] Last Admin: 09/03/22 08:48 Dose: 200 mg Documented By: BALWINDER Apixaban (Apixaban 2.5 Mg Tablet) 2.5 mg PO BID [facility] Last Admin: 09/03/22 08:48 Dose: 2.5 mg Documented By: BALWINDER Atorvastatin Calcium (Atorvastatin Calcium 80 Mg Tablet) 80 mg PO BEDTIME [facility] Last Admin: 08/25/22 21:41 Dose: 80 mg Documented By: MADDENL Bumetanide (Bumetanide 1 Mg Tablet) 1 mg PO BIDWM [facility]; Protocol Last Admin: 09/03/22 08:47 Dose: 1 mg Documented By: BALWINDER Carvedilol (Carvedilol 3.125 Mg Tablet) 3.125 mg PO BID [facility]; Protocol Last Admin: 09/03/22 08:47 Dose: 3.125 mg Documented By: BALWINDER Dextrose (Dextrose 50 % 25 Gm/50 Ml Vial) 25 gm IVPUSH Q15M PRN; Protocol PRN Reason: per Hypoglycemia Standing Ord. Fluoxetine HCl (Fluoxetine Hcl 20 Mg Capsule) 20 mg PO DAILY [facility] Last Admin: 09/03/22 08:49 Dose: 20 mg Documented By: BALWINDER Glucose (Glucose Gel 15 Gm Gel..Gram.) 15 gm PO Q15M PRN; Protocol PRN Reason: per Hypoglycemia Standing Ord. Guaifenesin/Codeine Phosphate (Guaifen/Codeine Sf 200/20/10ml 10 Ml Liquid) 10 ml PO Q4H PRN PRN Reason: Cough Insulin Glargine (Insulin Glargine,Hum.Rec.Anlog 100 Unit/Ml 10 Ml Vial) 10 unit SUBCUT DAILY [facility] Last Admin: 09/03/22 08:28 Dose: Not Given Documented By: BALWINDER Non-Admin Reason: No Insulin Coverage Insulin Human Lispro (Insulin Lispro 100 Unit/Ml 3 Ml Vial) 0 unit SUBCUT QIDACHS [facility]; Protocol Last Admin: 09/03/22 07:58 Dose: Not Given Documented By: BALWINDER Non-Admin Reason: No Insulin Coverage Melatonin (Melatonin 3 Mg Tablet) 6 mg PO BEDTIME PRN PRN Reason: Insomnia Ondansetron HCl (Ondansetron Hcl 4 Mg/2 Ml Vial) 4 mg IVPUSH Q8H PRN PRN Reason: Nausea and Vomiting Pharmacy Consult (Consult Rx Perform Med Rec) 1 each MISCELLANE ONCE PRN PRN Reason: Consult order Sodium Chloride (0.9 % Sodium Chloride Flush 3 Ml Syringe) 3 ml IVFLUSH QSHIFT [facility] Last Admin: 09/03/22 08:44 Dose: 3 ml Documented By: BALWINDER Vitamin D (Cholecalciferol (Vitamin D3) 25 Mcg Tablet) 50 mcg PO DAILY [facility] Last Admin: 09/03/22 08:47 Dose: 50 mcg Documented By: BALWINDER Labs 09/03/22 06:25 09/03/22 06:25 Labs: Laboratory Results - last 24 hr 09/02/22 09/02/22 09/02/22 11:38 18:09 21:12 MCV MCH MCHC RDW Plt Count MPV Immature Gran % (Auto) Neut % (Auto) Lymph % (Auto) [place] % (Auto) Eos % (Auto) Baso % (Auto) Lymph # (Auto) [place] # (Auto) Eos # (Auto) Baso # (Auto) Abs Immat Gran (auto) Absolute Neuts (auto) Absolute Nucleated RBC Nucleated RBC % (auto) Anion Gap Estim Creat Clear Calc Estimated GFR POC Glucose 155 H 162 H 174 H Fasting Glucose Calcium Total Bilirubin AST ALT Alkaline Phosphatase Total Protein Albumin 09/03/22 09/03/22 09/03/22 06:25 06:25 06:58 MCV 94.8 MCH 31.5 MCHC 33.2 RDW 17.4 H Plt Count 137 L MPV 9.5 Immature Gran % (Auto) 0.6 H Neut % (Auto) 84.6 H Lymph % (Auto) 10.3 L [place] % (Auto) 4.1 Eos % (Auto) 0.2 Baso % (Auto) 0.2 Lymph # (Auto) 1.1 L [place] # (Auto) 0.5 Eos # (Auto) 0.0 Baso # (Auto) 0.0 Abs Immat Gran (auto) 0.06 H Absolute Neuts (auto) 9.2 H Absolute Nucleated RBC 0.000 Nucleated RBC % (auto) 0.0 Anion Gap 14 Estim Creat Clear Calc 13.2 Estimated GFR 15 POC Glucose 138 H Fasting Glucose 138 H Calcium 7.7 L Total Bilirubin 0.9 AST 19 ALT 44 H Alkaline Phosphatase 97 Total Protein 6.9 Albumin 3.0 L 09/03/22 11:01 MCV MCH MCHC RDW Plt Count MPV Immature Gran % (Auto) Neut % (Auto) Lymph % (Auto) [place] % (Auto) Eos % (Auto) Baso % (Auto) Lymph # (Auto) [place] # (Auto) Eos # (Auto) Baso # (Auto) Abs Immat Gran (auto) Absolute Neuts (auto) Absolute Nucleated RBC Nucleated RBC % (auto) Anion Gap Estim Creat Clear Calc Estimated GFR POC Glucose 207 H Fasting Glucose Calcium Total Bilirubin AST ALT Alkaline Phosphatase Total Protein Albumin Assessment and Plan (1) Acute respiratory failure with hypoxia: Status: Acute Plan This is a 67-year-old male with pertinent history of ESRD on hemodialysis, coronary artery disease with ischemic cardiomyopathy and congestive heart failure with reduced ejection fraction, insulin-dependent diabetes mellitus, paroxysmal atrial fibrillation on Eliquis, mood disorder who presents to the emergency department for evaluation of dyspnea. Found to have left lower no pneumonia 1.Acute hypoxemic respiratory failure secondary to community-acquired p neumonia... Resolved -wean O2 as tolerated 2. Staph epidermis bacteremia -repeat cultures negative x5 days 3.Elevated LFTs -trending downward -HIDA negative -no surgical indication per surgery 4.Toxic metabolic encephalopathy -slowly improving... likely new baseline -will need placement; family elusive 5.ESRD on hemodialysis -HD Tuesday -follow renals/divalents 6.Insulin-dependent diabetes mellitus: -acceptable control on current therapies -Lantus as ordered/lispro correctional scale -adjust as indicated 7.Paroxysmal atrial fibrillation continue Eliquis and amiodarone Eliquis Full code DISPO Plan for STR when bed available; continued admit for safe placement Time Spent With Patient Time: Total time managing care of this patient today ____ minutes. Quality Stroke Does the patient have a stroke diagnosis?: No VTE Prior VTE?: No VTE Risk Level:: Medical - moderate - high VTE Device Contraindication: Treatment Not Indicated VTE Drug Contraindication: N/A - Med Ordered
[2022-09-03] MEDS: Insulin Lispro 100 UNIT/ML 3 ML VIAL SUBCUT ×2 (12:10→21:04)
[2022-09-03 15:12] VITALS: BP 135/82; PULSE 60; RESP 18; TEMP 36.1; O2SAT 96
[2022-09-03 16:53] LABS: Glucose, Whole Blood 93 mg/dL (60-115)
[2022-09-03 20:00] VITALS: BP 144/83; PULSE 61; RESP 16; TEMP 36.4; O2SAT 96
[2022-09-03 20:55] LABS: Glucose, Whole Blood 182 mg/dL (60-115)
[2022-09-04 04:00] VITALS: BP 112/70; PULSE 65; RESP 18; TEMP 36.6; O2SAT 100
[2022-09-04 06:16] LABS: MANUAL DIFF FLAG NO
[2022-09-04 06:33] LABS: Basophils Percent Auto 0.2 % (0-2); Eosinophils Percent Auto 0.4 % (0-4); Imm Gran Abs Auto 0.05 X10*3/uL (0.00-0.03); Imm Gran Pct Auto 0.5 % (0.0-0.4); Lymphocytes Percent Auto 21.8 % (20-40); Mean Corpuscular HGB Conc 34.4 g/dl (31.0-36.0); Mean Corpuscular Hemoglobin 31.7 pg (27.0-33.0); Mean Corpuscular Volume 92.2 fL (80.0-98.0); Mean Platelet Volume 9.3 fL (9.4-12.4); Monocytes Absolute Auto 0.6 X10*3/uL (0.1-1.2); Monocytes Percent Auto 6.6 % (2-11); Neutrophils Absolute Auto 6.6 x10*3/uL (2.0-8.3); Neutrophils Percent Auto 70.5 % (45-73); Platelet Count 156 X10*3/uL (160-400); Red Blood Count 3.47 X10*6/uL (4.60-5.80); White Blood Count 9.4 X10*3/uL (4.8-10.8)
[2022-09-04 07:24] LABS: Alanine Aminotransferase 43 U/L (0-40); Alkaline Phosphatase 91 U/L (39-117); Anion Gap 15 (12-20); Aspartate Amino Transferase 19 U/L (5-37); Bilirubin Total 0.9 mg/dL (0.0-1.0); Blood Urea Nitrogen 44 mg/dL (9-16); Carbon Dioxide 21 mmol/L (22-29); Chloride 95 mmol/L (96-108); Creatinine Clr Calc Pharmacy 10.6; Estimated Glomerular Filt Rate 11; Glucose Fasting 125 mg/dL (60-99); Potassium 4.4 mmol/L (3.3-5.1); Sodium 127 mmol/L (135-145); Total Protein 6.9 g/dL (6.5-8.0)
[2022-09-04 07:58] LABS: Glucose, Whole Blood 107 mg/dL (60-115)
--- NOTE | 2022-09-04 10:30 | W.PM.DNNEP ---
Subjective Subjective This patient was seen during dialysis. Interval history: Stable over past 48 hrs Physical Exam Vital Signs: Vital Signs: Last Vital Signs Temp 98 F 09/04/22 04:00 Pulse 65 09/04/22 04:00 Resp 18 09/04/22 04:00 BP 112/70 09/04/22 04:00 Pulse Ox 100 09/04/22 04:00 O2 Del Method 09/04/22 04:00 O2 Flow Rate 2.0 08/27/22 07:58 Oxygen Flow Rate 2 08/25/22 17:41 BMI result Body Mass Index 22.6 Const: Other: Awake alert intermittently confused General: cooperative, healthy appearing, comfortable, no acute distress, alert and awake Nutritional Appearance: average body habitus and thin Orientation/consciousness: oriented to person, oriented to place and patient oriented x3 HEENT: Head: Yes normal to inspection, Yes normocephalic and Yes atraumatic Face and sinus: Yes normal facial exam Mouth: Normal oral and palatal mucosa present Teeth and gingiva: dentition normal Eyes: General: appearance normal, both eyes and all related structures Eyelids: Yes eyelids normal Conjunctivae: conjunctivae normal Sclerae: sclerae normal Corneas: corneas normal Pupils: Equal, round and reactive pupils present EOM: EOMs intact bilaterally Neck: Neck: Yes supple Chest: Other: HD catheter present Resp: Other: Diminished left base with scant crackles Effort & Inspection: normal respiratory effort, able to speak in complete sentences, no audible wheezes, not labored, no respiratory distress and no use of accessory muscles Auscultation: clear to auscultation bilaterally and diminished lung sounds Cardio: Other: No S4; positive S1-S2; no S3 murmurs rubs gallops Rate: regular rate Rhythm: regular rhythm Heart sounds: S1 normal heart sound present and S2 normal heart sound present GI: Other: Soft nontender nondistended normoactive bowel sounds Inspection: No distended Palpation (GI): Soft to palpation, nontender, no guarding and not rigid : General: Yes no CVA tenderness Back/Spine/Pelvis: Back: no CVA tenderness Skin: General skin exam: no rashes or lesions noted and elasticity normal Lesions: no lesions Rashes: no rashes Neuro: Other: face symmetrical, tongue midline, hand grasp equal, able to move all extremities General: oriented to person, oriented to place, patient oriented x3 and moves all extremities Cranial nerves: Yes Equal, round and reactive pupils present and Yes Midline tongue present Extrem: Other: No edema bilaterally General: Yes normal to inspection, Yes full ROM and Yes no pedal edema Psych: Appearance: grossly normal Assessment & Plan Assessment and plan (1) ESRD (end stage renal disease): Status: Acute Assessment and Plan: tolerating HD well labs reviewed BP stable permcath working well (2) HFrEF (heart failure with reduced ejection fraction): Status: Acute Assessment and Plan: euvolemic now (3) Bacteremia due to Staphylococcus: Status: Acute Assessment and Plan: repeat BCs negative, completed treatment Time Spent With Patient Time: Total time managing care of this patient today ____ minutes. Procedures Date of Service Date of Service: 09/04/22
[2022-09-04 11:07] VITALS: BP 129/77; PULSE 61; RESP 18; TEMP 36.6; O2SAT 96
[2022-09-04] MEDS: Cholecalciferol (Vitamin D3) 25 MCG TABLET 50 MCG PO (11:14)
[2022-09-04] MEDS: Apixaban 2.5 MG TABLET PO ×2 (11:15→20:36)
[2022-09-04] MEDS: Amiodarone HCL 200 MG TABLET PO (11:15)
[2022-09-04] MEDS: FLUoxetine HCl 20 MG CAPSULE PO (11:15)
[2022-09-04] MEDS: carvediloL 3.125 MG TABLET PO ×2 (11:15→20:36)
[2022-09-04] MEDS: Bumetanide 1 MG TABLET PO ×2 (11:15→17:57)
[2022-09-04] MEDS: Insulin Glargine,Hum.rec.anlog 100 UNIT/ML 10 ML VIAL 10 UNIT SUBCUT (11:15)
[2022-09-04] MEDS: 0.9 % Sodium Chloride Flush 3 ML SYRINGE IVFLUSH ×3 (11:16→20:36)
[2022-09-04 11:19] LABS: Glucose, Whole Blood 104 mg/dL (60-115)
--- NOTE | 2022-09-04 14:30 | P.PNIM_ITS ---
Subjective Subjective Date of Service: 09/04/22 Interval History: confused at baseline. No acute issues Review of Systems Unable to obtain Physical Exam Vital Signs: Vital Signs: Last Vital Signs Temp 98 F 09/04/22 11:07 Pulse 61 09/04/22 11:07 Resp 18 09/04/22 11:07 BP 129/77 09/04/22 11:07 Pulse Ox 96 09/04/22 11:07 O2 Del Method 09/04/22 11:07 O2 Flow Rate 2.0 08/27/22 07:58 Oxygen Flow Rate 2 08/25/22 17:41 BMI result Body Mass Index 22.6 Const: Other: Awake alert intermittently confused Resp: Other: Diminished left base with scant crackles Cardio: Other: No S4; positive S1-S2; no S3 murmurs rubs gallops GI: Other: Soft nontender nondistended normoactive bowel sounds Extrem: Other: No edema bilaterally Objective Data Active Medications Acetaminophen (Acetaminophen 325 Mg Tablet) 650 mg PO Q6H PRN PRN Reason: Pain, Mild (Pain Scale 1-3) Amiodarone HCl (Amiodarone Hcl 200 Mg Tablet) 200 mg PO DAILY [facility] Last Admin: 09/04/22 11:15 Dose: 200 mg Documented By: IRVING Apixaban (Apixaban 2.5 Mg Tablet) 2.5 mg PO BID [facility] Last Admin: 09/04/22 11:15 Dose: 2.5 mg Documented By: IRVING Atorvastatin Calcium (Atorvastatin Calcium 80 Mg Tablet) 80 mg PO BEDTIME [facility] Last Admin: 08/25/22 21:41 Dose: 80 mg Documented By: MADDENKiesha Bumetanide (Bumetanide 1 Mg Tablet) 1 mg PO BIDWM [facility]; Protocol Last Admin: 09/04/22 11:15 Dose: 1 mg Documented By: IRVING Carvedilol (Carvedilol 3.125 Mg Tablet) 3.125 mg PO BID [facility]; Protocol Last Admin: 09/04/22 11:15 Dose: 3.125 mg Documented By: IRVING Dextrose (Dextrose 50 % 25 Gm/50 Ml Vial) 25 gm IVPUSH Q15M PRN; Protocol PRN Reason: per Hypoglycemia Standing Ord. Fluoxetine HCl (Fluoxetine Hcl 20 Mg Capsule) 20 mg PO DAILY [facility] Last Admin: 09/04/22 11:15 Dose: 20 mg Documented By: IRVING Glucose (Glucose Gel 15 Gm Gel..Gram.) 15 gm PO Q15M PRN; Protocol PRN Reason: per Hypoglycemia Standing Ord. Guaifenesin/Codeine Phosphate (Guaifen/Codeine Sf 200/20/10ml 10 Ml Liquid) 10 ml PO Q4H PRN PRN Reason: Cough Insulin Glargine (Insulin Glargine,Hum.Rec.Anlog 100 Unit/Ml 10 Ml Vial) 10 unit SUBCUT DAILY [facility] Last Admin: 09/04/22 11:15 Dose: 10 unit Documented By: IRVING Insulin Human Lispro (Insulin Lispro 100 Unit/Ml 3 Ml Vial) 0 unit SUBCUT QIDA [facility]; Protocol Last Admin: 09/04/22 12:36 Dose: Not Given Documented By: IRVING Non-Admin Reason: No Insulin Coverage Melatonin (Melatonin 3 Mg Tablet) 6 mg PO BEDTIME PRN PRN Reason: Insomnia Ondansetron HCl (Ondansetron Hcl 4 Mg/2 Ml Vial) 4 mg IVPUSH Q8H PRN PRN Reason: Nausea and Vomiting Pharmacy Consult (Consult Rx Perform Med Rec) 1 each MISCELLANE ONCE PRN PRN Reason: Consult order Sodium Chloride (0.9 % Sodium Chloride Flush 3 Ml Syringe) 3 ml IVFLUSH QSHIFT [facility] Last Admin: 09/04/22 11:16 Dose: 3 ml Documented By: IRVING Vitamin D (Cholecalciferol (Vitamin D3) 25 Mcg Tablet) 50 mcg PO DAILY [facility] Last Admin: 09/04/22 11:14 Dose: 50 mcg Documented By: IRVING Labs 09/04/22 05:35 09/04/22 05:35 Labs: Laboratory Results - last 24 hr 09/03/22 09/03/22 09/04/22 16:49 20:36 05:35 MCV 92.2 MCH 31.7 MCHC 34.4 RDW 17.0 H Plt Count 156 L MPV 9.3 L Immature Gran % (Auto) 0.5 H Neut % (Auto) 70.5 Lymph % (Auto) 21.8 [place] % (Auto) 6.6 Eos % (Auto) 0.4 Baso % (Auto) 0.2 Lymph # (Auto) 2.0 [place] # (Auto) 0.6 Eos # (Auto) 0.0 Baso # (Auto) 0.0 Abs Immat Gran (auto) 0.05 H Absolute Neuts (auto) 6.6 Absolute Nucleated RBC 0.000 Nucleated RBC % (auto) 0.0 Anion Gap Estim Creat Clear Calc Estimated GFR POC Glucose 93 182 H Fasting Glucose Calcium Total Bilirubin AST ALT Alkaline Phosphatase Total Protein Albumin 09/04/22 09/04/22 09/04/22 05:35 07:45 11:07 MCV MCH MCHC RDW Plt Count MPV Immature Gran % (Auto) Neut % (Auto) Lymph % (Auto) [place] % (Auto) Eos % (Auto) Baso % (Auto) Lymph # (Auto) [place] # (Auto) Eos # (Auto) Baso # (Auto) Abs Immat Gran (auto) Absolute Neuts (auto) Absolute Nucleated RBC Nucleated RBC % (auto) Anion Gap 15 Estim Creat Clear Calc 10.6 Estimated GFR 11 POC Glucose 107 104 Fasting Glucose 125 H Calcium 8.0 L Total Bilirubin 0.9 AST 19 ALT 43 H Alkaline Phosphatase 91 Total Protein 6.9 Albumin 3.0 L Assessment and Plan (1) Acute respiratory failure with hypoxia: Status: Acute (2) Pneumonia: Status: Acute Plan This is a 67-year-old male with pertinent history of ESRD on hemodialysis, coronary artery disease with ischemic cardiomyopathy and congestive heart failure with reduced ejection fraction, insulin-dependent diabetes mellitus, paroxysmal atrial fibrillation on Eliquis, mood disorder who presents to the emergency department for evaluation of dyspnea. Found to have left lower no pneumonia 1.Acute hypoxemic respiratory failure secondary to community-acquired pneumonia... Resolved -wean O2 as tolerated 2. Staph epidermis bacteremia -repeat cultures negative x5 days 3.Elevated LFTs -trending downward -HIDA negative -no surgical indication per surgery 4.Toxic metabolic encephalopathy -slowly improving... likely new baseline -will need placement; family elusive 5.ESRD on hemodialysis -HD Tuesday -follow renals/divalents 6.Insulin-dependent diabetes mellitus: -acceptable control on current therapies -Lantus as ordered/lispro correctional scale -adjust as indicated 7.Paroxysmal atrial fibrillation continue Eliquis and amiodarone Eliquis Full code DISPO Plan for STR when bed available; continued admit for safe placement Time Spent With Patient Time: Total time managing care of this patient today ____ minutes. Quality Stroke Does the patient have a stroke diagnosis?: No VTE Prior VTE?: No VTE Risk Level:: Medical - moderate - high VTE Device Contraindication: Treatment Not Indicated VTE Drug Contraindication: N/A - Med Ordered
[2022-09-04 15:37] VITALS: BP 123/69; PULSE 66; RESP 18; TEMP 36.6; O2SAT 97
[2022-09-04 16:44] LABS: Glucose, Whole Blood 211 mg/dL (60-115)
[2022-09-04 17:57] VITALS: BP 120/60; PULSE 64
[2022-09-04] MEDS: Insulin Lispro 100 UNIT/ML 3 ML VIAL SUBCUT (17:57)
[2022-09-04 19:54] VITALS: BP 127/70; PULSE 70; RESP 20; TEMP 36.3; O2SAT 96
[2022-09-04 20:35] LABS: Glucose, Whole Blood 136 mg/dL (60-115)
[2022-09-04 22:38] LABS: Calcium 7.7 mg/dL (8.4-10.2)
[2022-09-05 07:06] VITALS: BP 138/80; PULSE 67; RESP 18; TEMP 36.1; O2SAT 98
[2022-09-05 07:32] LABS: Glucose, Whole Blood 97 mg/dL (60-115)
[2022-09-05] MEDS: Amiodarone HCL 200 MG TABLET PO (08:28)
[2022-09-05] MEDS: Apixaban 2.5 MG TABLET PO ×2 (08:28→20:56)
[2022-09-05] MEDS: FLUoxetine HCl 20 MG CAPSULE PO (08:29)
[2022-09-05] MEDS: Cholecalciferol (Vitamin D3) 25 MCG TABLET 50 MCG PO (08:29)
[2022-09-05] MEDS: 0.9 % Sodium Chloride Flush 3 ML SYRINGE IVFLUSH ×3 (08:29→20:56)
[2022-09-05] MEDS: carvediloL 3.125 MG TABLET PO ×2 (08:29→20:56)
[2022-09-05] MEDS: Bumetanide 1 MG TABLET PO ×2 (08:34→17:21)
[2022-09-05] MEDS: Insulin Glargine,Hum.rec.anlog 100 UNIT/ML 10 ML VIAL 10 UNIT SUBCUT (08:35)
[2022-09-05 11:05] LABS: Glucose, Whole Blood 233 mg/dL (60-115)
[2022-09-05] MEDS: Insulin Lispro 100 UNIT/ML 3 ML VIAL SUBCUT (11:35)
--- NOTE | 2022-09-05 12:13 | HO.PM.IMPN ---
Subjective Subjective Date of Service: 09/05/22 Interval History: no acute issue. Remains mildly confused Review of Systems Unable to obtain Physical Exam Vital Signs: Vital Signs: Last Vital Signs Temp 97 F 09/05/22 07:06 Pulse 67 09/05/22 07:06 Resp 18 09/05/22 07:06 BP 138/80 09/05/22 07:06 Pulse Ox 98 09/05/22 07:06 O2 Del Method 09/05/22 07:06 O2 Flow Rate 2.0 08/27/22 07:58 Oxygen Flow Rate 2 08/25/22 17:41 BMI result Body Mass Index 22.6 Const: Other: Awake alert intermittently confused Resp: Other: Diminished left base with scant crackles Cardio: Other: No S4; positive S1-S2; no S3 murmurs rubs gallops GI: Other: Soft nontender nondistended normoactive bowel sounds Extrem: Other: No edema bilaterally Objective Data Active Medications Acetaminophen (Acetaminophen 325 Mg Tablet) 650 mg PO Q6H PRN PRN Reason: Pain, Mild (Pain Scale 1-3) Amiodarone HCl (Amiodarone Hcl 200 Mg Tablet) 200 mg PO DAILY [facility] Last Admin: 09/05/22 08:28 Dose: 200 mg Documented By: MICKEY Apixaban (Apixaban 2.5 Mg Tablet) 2.5 mg PO BID [facility] Last Admin: 09/05/22 08:28 Dose: 2.5 mg Documented By: MICKEY Atorvastatin Calcium (Atorvastatin Calcium 80 Mg Tablet) 80 mg PO BEDTIME [facility] Last Admin: 08/25/22 21:41 Dose: 80 mg Documented By: MADDENL Bumetanide (Bumetanide 1 Mg Tablet) 1 mg PO BIDWM [facility]; Protocol Last Admin: 09/05/22 08:34 Dose: 1 mg Documented By: MICKEY Carvedilol (Carvedilol 3.125 Mg Tablet) 3.125 mg PO BID [facility]; Protocol Last Admin: 09/05/22 08:29 Dose: 3.125 mg Documented By: MICKEY Dextrose (Dextrose 50 % 25 Gm/50 Ml Vial) 25 gm IVPUSH Q15M PRN; Protocol PRN Reason: per Hypoglycemia Standing Ord. Fluoxetine HCl (Fluoxetine Hcl 20 Mg Capsule) 20 mg PO DAILY [facility] Last Admin: 09/05/22 08:29 Dose: 20 mg Documented By: MICKEY Glucose (Glucose Gel 15 Gm Gel..Gram.) 15 gm PO Q15M PRN; Protocol PRN Reason: per Hypoglycemia Standing Ord. Guaifenesin/Codeine Phosphate (Guaifen/Codeine Sf 200/20/10ml 10 Ml Liquid) 10 ml PO Q4H PRN PRN Reason: Cough Insulin Glargine (Insulin Glargine,Hum.Rec.Anlog 100 Unit/Ml 10 Ml Vial) 10 unit SUBCUT DAILY [facility] Last Admin: 09/05/22 08:35 Dose: 10 unit Documented By: MICKEY Insulin Human Lispro (Insulin Lispro 100 Unit/Ml 3 Ml Vial) 0 unit SUBCUT QIDACHS [facility]; Protocol Last Admin: 09/05/22 11:35 Dose: 4 unit Documented By: MICKEY Melatonin (Melatonin 3 Mg Tablet) 6 mg PO BEDTIME PRN PRN Reason: Insomnia Ondansetron HCl (Ondansetron Hcl 4 Mg/2 Ml Vial) 4 mg IVPUSH Q8H PRN PRN Reason: Nausea and Vomiting Pharmacy Consult (Consult Rx Perform Med Rec) 1 each MISCELLANE ONCE PRN PRN Reason: Consult order Sodium Chloride (0.9 % Sodium Chloride Flush 3 Ml Syringe) 3 ml IVFLUSH QSHIFT [facility] Last Admin: 09/05/22 08:29 Dose: 3 ml Documented By: MICKEY Vitamin D (Cholecalciferol (Vitamin D3) 25 Mcg Tablet) 50 mcg PO DAILY [facility] Last Admin: 09/05/22 08:29 Dose: 50 mcg Documented By: MICKEY Labs 09/04/22 05:35 09/04/22 05:35 Labs: Laboratory Results - last 24 hr 09/04/22 09/04/22 09/04/22 05:35 16:18 20:26 POC Glucose 211 H 136 H Calcium 7.7 L 09/05/22 09/05/22 07:07 11:01 POC Glucose 97 233 H Calcium Assessment and Plan (1) Acute respiratory failure with hypoxia: Status: Acute (2) Community acquired pneumonia: Status: Acute (3) ESRD (end stage renal disease): Status: Acute Plan This is a 67-year-old male with pertinent history of ESRD on hemodialysis, coronary artery disease with ischemic cardiomyopathy and congestive heart failure with reduced ejection fraction, insulin-dependent diabetes mellitus, paroxysmal atrial fibrillation on Eliquis, mood disorder who presents to the emergency department for evaluation of dyspnea. Found to have left lower no pneumonia 1.Acute hypoxemic respiratory failure secondary to community-acquired pneumonia... Resolved -wean O2 as tolerated 2. Staph epidermis bacteremia -repeat cultures negative x5 days 3.Elevated LFTs -trending downward -HIDA negative -no surgical indication per surgery 4.Toxic metabolic encephalopathy -slowly improving... likely new baseline -will need placement; family elusive 5.ESRD on hemodialysis -HD Tuesday -follow renals/divalents 6.Insulin-dependent diabetes mellitus: -acceptable control on current therapies -Lantus as ordered/lispro correctional scale -adjust as indicated 7.Paroxysmal atrial fibrillation continue Eliquis and amiodarone Eliquis Full code DISPO Plan for STR when bed available; continued admit for safe placement Time Spent With Patient Time: Total time managing care of this patient today ____ minutes. Quality Stroke Does the patient have a stroke diagnosis?: No VTE Prior VTE?: No VTE Risk Level:: Medical - moderate - high VTE Device Contraindication: Treatment Not Indicated VTE Drug Contraindication: N/A - Med Ordered
[2022-09-05 15:50] VITALS: BP 136/84; RESP 17; O2SAT 98
[2022-09-05 16:13] LABS: Glucose, Whole Blood 108 mg/dL (60-115)
[2022-09-05 20:00] VITALS: BP 137/87; PULSE 96; RESP 17; TEMP 36.7; O2SAT 96
[2022-09-05 21:00] LABS: Glucose, Whole Blood 146 mg/dL (60-115)
[2022-09-06 07:48] LABS: Glucose, Whole Blood 97 mg/dL (60-115)
[2022-09-06 08:00] VITALS: BP 135/70; PULSE 63; RESP 18; TEMP 36.2; O2SAT 94
[2022-09-06] MEDS: Apixaban 2.5 MG TABLET PO ×2 (08:39→19:41)
[2022-09-06] MEDS: Cholecalciferol (Vitamin D3) 25 MCG TABLET 50 MCG PO (08:39)
[2022-09-06] MEDS: Insulin Glargine,Hum.rec.anlog 100 UNIT/ML 10 ML VIAL 10 UNIT SUBCUT (08:39)
[2022-09-06] MEDS: carvediloL 3.125 MG TABLET PO ×2 (08:39→19:42)
[2022-09-06] MEDS: Amiodarone HCL 200 MG TABLET PO (08:39)
[2022-09-06] MEDS: Bumetanide 1 MG TABLET PO ×2 (08:39→17:41)
[2022-09-06] MEDS: FLUoxetine HCl 20 MG CAPSULE PO (08:39)
[2022-09-06 10:38] LABS: Anion Gap 16 (12-20); Blood Urea Nitrogen 44 mg/dL (9-16); Calcium 8.5 mg/dL (8.4-10.2); Carbon Dioxide 20 mmol/L (22-29); Chloride 93 mmol/L (96-108); Creatinine Clr Calc Pharmacy 11.3; Estimated Glomerular Filt Rate 12; Glucose Random 150 mg/dL (60-115); Potassium 4.9 mmol/L (3.3-5.1); Sodium 124 mmol/L (135-145)
[2022-09-06 11:12] LABS: Glucose, Whole Blood 195 mg/dL (60-115)
[2022-09-06] MEDS: Insulin Lispro 100 UNIT/ML 3 ML VIAL SUBCUT ×2 (11:49→20:08)
--- NOTE | 2022-09-06 12:40 | PM.PNNEP ---
Subjective Subjective Date of Service: 09/06/22 Interval history: Seen and examined, events noted Physical Exam Vital Signs: Vital Signs: Last Vital Signs Temp 97.1 F 09/06/22 08:00 Pulse 63 09/06/22 08:00 Resp 18 09/06/22 08:00 BP 135/70 09/06/22 08:00 Pulse Ox 94 09/06/22 08:00 O2 Del Method 09/06/22 08:00 O2 Flow Rate 2.0 08/27/22 07:58 Oxygen Flow Rate 2 08/25/22 17:41 BMI result Body Mass Index 22.6 Const: Other: Awake alert intermittently confused General: cooperative, healthy appearing, comfortable, no acute distress, alert and awake Nutritional Appearance: average body habitus and thin Orientation/consciousness: oriented to person, oriented to place and patient oriented x3 HEENT: Head: Yes normal to inspection, Yes normocephalic and Yes atraumatic Face and sinus: Yes normal facial exam Mouth: Normal oral and palatal mucosa present Teeth and gingiva: dentition normal Eyes: General: appearance normal, both eyes and all related structures Eyelids: Yes eyelids normal Conjunctivae: conjunctivae normal Sclerae: sclerae normal Corneas: corneas normal Pupils: Equal, round and reactive pupils present EOM: EOMs intact bilaterally Neck: Neck: Yes supple Chest: Other: HD catheter present Resp: Other: Diminished left base with scant crackles Effort & Inspection: normal respiratory effort, able to speak in complete sentences, no audible wheezes, not labored, no respiratory distress and no use of accessory muscles Auscultation: clear to auscultation bilaterally and diminished lung sounds Cardio: Other: No S4; positive S1-S2; no S3 murmurs rubs gallops Rate: regular rate Rhythm: regular rhythm Heart sounds: S1 normal heart sound present and S2 normal heart sound present GI: Other: Soft nontender nondistended normoactive bowel sounds Inspection: No distended Palpation (GI): Soft to palpation, nontender, no guarding and not rigid : General: Yes no CVA tenderness Back/Spine/Pelvis: Back: no CVA tenderness Skin: General skin exam: no rashes or lesions noted and elasticity normal Lesions: no lesions Rashes: no rashes Neuro: Other: face symmetrical, tongue midline, hand grasp equal, able to move all extremities General: oriented to person, oriented to place, patient oriented x3 and moves all extremities Cranial nerves: Yes Equal, round and reactive pupils present and Yes Midline tongue present Extrem: Other: No edema bilaterally General: Yes normal to inspection, Yes full ROM and Yes no pedal edema Psych: Appearance: grossly normal Objective Data Labs 09/04/22 05:35 09/06/22 09:48 Labs: Laboratory Results - last 24 hr 09/05/22 09/05/22 09/06/22 16:03 20:49 07:37 Sodium Potassium Chloride Carbon Dioxide Anion Gap BUN Creatinine Estim Creat Clear Calc Estimated GFR POC Glucose 108 146 H 97 Random Glucose Calcium 09/06/22 09/06/22 09:48 10:58 Sodium 124 L Potassium 4.9 Chloride 93 L Carbon Dioxide 20 L Anion Gap 16 BUN 44 H Creatinine 4.75 H* Estim Creat Clear Calc 11.3 Estimated GFR 12 POC Glucose 195 H Random Glucose 150 H Calcium 8.5 D Microbiology Microbiology Results: Microbiology 08/27/22 08:02 Blood - Venous Blood Culture - Final No growth after 5 days. 08/27/22 07:55 Blood - Venous Blood Culture - Final No growth after 5 days. 08/25/22 19:40 Blood - Venous Blood Culture - Final Staphylococcus epidermidis 08/25/22 19:40 Blood - Venous Blood Culture - Final Staphylococcus epidermidis Procedures Date of Service Date of Service: 09/06/22 Assessment & Plan Assessment and plan (1) ESRD (end stage renal disease): Status: Acute (2) HFrEF (heart failure with reduced ejection fraction): Status: Acute Assessment and Plan: euvolemic now (3) Bacteremia due to Staphylococcus: Status: Acute Assessment and Plan: - ESRD: TTS - Pnuemonia: resolved - Staph epi ( 08/25) and subsequent Bld Cult neg REC: ocnt hD TTS; d/c planning; track HB and EPO as needed will follow w team Time Spent With Patient Time: Total time managing care of this patient today ____ minutes. Progress Note: Quality Stroke Does the patient have a stroke diagnosis?: No
--- NOTE | 2022-09-06 14:28 | P.PNIM_ITS ---
Subjective Subjective Date of Service: 09/06/22 Interval History: This history was taken in [place] from the patient. Denies any complaints Awaiting placement Review of Systems Review of Systems: Yes all other systems are reviewed and are negative Physical Exam Vital Signs: Vital Signs: Last Vital Signs Temp 97.1 F 09/06/22 08:00 Pulse 63 09/06/22 08:00 Resp 18 09/06/22 08:00 BP 135/70 09/06/22 08:00 Pulse Ox 94 09/06/22 08:00 O2 Del Method 09/06/22 08:00 O2 Flow Rate 2.0 08/27/22 07:58 Oxygen Flow Rate 2 08/25/22 17:41 BMI result Body Mass Index 22.6 Const: Other: Gen: in no acute distress HEENT: sclera anicteric, moist mucus membranes Neck: supple Lungs: clear to auscultation bilaterally Heart: regular rate and rhythm, no murmurs Abd: soft, non-tender, non-distended Ext: no edema Skin: warm/well-perfused Neuro: alert, mildly confused Psych: appropriate affect Objective Data Active Medications Acetaminophen (Acetaminophen 325 Mg Tablet) 650 mg PO Q6H PRN PRN Reason: Pain, Mild (Pain Scale 1-3) Amiodarone HCl (Amiodarone Hcl 200 Mg Tablet) 200 mg PO DAILY [facility] Last Admin: 09/06/22 08:39 Dose: 200 mg Documented By: BELA Apixaban (Apixaban 2.5 Mg Tablet) 2.5 mg PO BID [facility] Last Admin: 09/06/22 08:39 Dose: 2.5 mg Documented By: BELA Atorvastatin Calcium (Atorvastatin Calcium 80 Mg Tablet) 80 mg PO BEDTIME [facility] Last Admin: 08/25/22 21:41 Dose: 80 mg Documented By: MADDENL Bumetanide (Bumetanide 1 Mg Tablet) 1 mg PO BIDWM [facility]; Protocol Last Admin: 09/06/22 08:39 Dose: 1 mg Documented By: BELA Carvedilol (Carvedilol 3.125 Mg Tablet) 3.125 mg PO BID [facility]; Protocol Last Admin: 09/06/22 08:39 Dose: 3.125 mg Documented By: BELA Dextrose (Dextrose 50 % 25 Gm/50 Ml Vial) 25 gm IVPUSH Q15M PRN; Protocol PRN Reason: per Hypoglycemia Standing Ord. Fluoxetine HCl (Fluoxetine Hcl 20 Mg Capsule) 20 mg PO DAILY [facility] Last Admin: 09/06/22 08:39 Dose: 20 mg Documented By: BELA Glucose (Glucose Gel 15 Gm Gel..Gram.) 15 gm PO Q15M PRN; Protocol PRN Reason: per Hypoglycemia Standing Ord. Guaifenesin/Codeine Phosphate (Guaifen/Codeine Sf 200/20/10ml 10 Ml Liquid) 10 ml PO Q4H PRN PRN Reason: Cough Insulin Glargine (Insulin Glargine,Hum.Rec.Anlog 100 Unit/Ml 10 Ml Vial) 10 unit SUBCUT DAILY [facility] Last Admin: 09/06/22 08:39 Dose: 10 unit Documented By: BELA Insulin Human Lispro (Insulin Lispro 100 Unit/Ml 3 Ml Vial) 0 unit SUBCUT QIDACHS [facility]; Protocol Last Admin: 09/06/22 11:49 Dose: 2 unit Documented By: DEISY Melatonin (Melatonin 3 Mg Tablet) 6 mg PO BEDTIME PRN PRN Reason: Insomnia Ondansetron HCl (Ondansetron Hcl 4 Mg/2 Ml Vial) 4 mg IVPUSH Q8H PRN PRN Reason: Nausea and Vomiting Pharmacy Consult (Consult Rx Perform Med Rec) 1 each MISCELLANE ONCE PRN PRN Reason: Consult order Sodium Chloride (0.9 % Sodium Chloride Flush 3 Ml Syringe) 3 ml IVFLUSH QSHIFT [facility] Last Admin: 09/06/22 07:28 Dose: Not Given Documented By: BELA Non-Admin Reason: See Note Vitamin D (Cholecalciferol (Vitamin D3) 25 Mcg Tablet) 50 mcg PO DAILY [facility] Last Admin: 09/06/22 08:39 Dose: 50 mcg Documented By: BELA Labs 09/04/22 05:35 09/06/22 09:48 Labs: Laboratory Results - last 24 hr 09/05/22 09/05/22 09/06/22 16:03 20:49 07:37 Anion Gap Estim Creat Clear Calc Estimated GFR POC Glucose 108 146 H 97 Random Glucose Calcium 09/06/22 09/06/22 09:48 10:58 Anion Gap 16 Estim Creat Clear Calc 11.3 Estimated GFR 12 POC Glucose 195 H Random Glucose 150 H Calcium 8.5 D Assessment and Plan (1) Acute respiratory failure with hypoxia: Status: Acute (2) Community acquired pneumonia: Status: Acute (3) ESRD (end stage renal disease): Status: Acute Plan d#13 67 year-old male with ESRD on hemodialysis, coronary artery disease with ischemic cardiomyopathy and congestive heart failure with reduced ejection fraction, insulin-dependent diabetes mellitus, paroxysmal atrial fibrillation on Eliquis, and mood disorder who presented to the emergency department for evaluation of dyspnea and was admitted for left lower lobe PNA # acute hypoxic resp failure due to CAP - resolved, no longer hypoxic, completed ABX - not bacteremic, had CoNS which was a contaminant # elevated LFTs - largely resolved, HIDA negative, no surgical indication, probably had some degree of hepatitis from the pneumonia # toxic metabolic encephalopathy - slowly improving; likely new baseline - will need placement; family elusive # hypoNa - attempt to correct with HD tomorrow # ESRD on hemodialysis - HD Tuesday # DM2 - basal-bolus insulin # paroxysmal AF - continue carvedilol - continue amiodarone - continue apixaban # chronic HFpEF - continue carvedilol, bumetanide # mood disorder - continue fluoxetine # VTE ppx: apixaban # dispo: STR pending placement In my clinical judgment, the patient requires continued inpatient hospitalization for the following reasons: safe placement Time Spent With Patient Time: Total time managing care of this patient today _35___ minutes. Quality Stroke Does the patient have a stroke diagnosis?: No VTE Prior VTE?: No VTE Risk Level:: Medical - moderate - high VTE Device Contraindication: Treatment Not Indicated VTE Drug Contraindication: N/A - Med Ordered
--- NOTE | 2022-09-06 14:33 | MHC.CLN ---
F/U DIET PER DIABETIC, RENAL PARAMETERS WITH DIALYSIS. DIET=DIABETIC 1800 KCAL, 2 GRAM SODIUM, LOW POTASSIUM, LOW PHOSPHORUS. INTAKE MOST MEALS 75-100%. DIALYSIS T, TH, SAT. CONTINUE TO FOLLOW FOR INTAKE AND WEIGHT.
[2022-09-06] MEDS: 0.9 % Sodium Chloride Flush 3 ML SYRINGE IVFLUSH (14:46)
[2022-09-06 16:00] VITALS: BP 138/85; PULSE 62; RESP 15; TEMP 36.3; O2SAT 94
[2022-09-06 16:53] LABS: Glucose, Whole Blood 140 mg/dL (60-115)
[2022-09-06 19:22] VITALS: BP 146/88; PULSE 70; RESP 18; TEMP 36.1; O2SAT 98
[2022-09-06 20:03] LABS: Glucose, Whole Blood 227 mg/dL (60-115)
[2022-09-07 03:29] VITALS: BP 153/89; PULSE 65; RESP 17; TEMP 36.2; O2SAT 95
[2022-09-07 07:44] LABS: Glucose, Whole Blood 125 mg/dL (60-115)
[2022-09-07 07:58] VITALS: BP 157/91; PULSE 69; RESP 18; TEMP 36.4; O2SAT 92
[2022-09-07 09:52] LABS: Anion Gap 21 (12-20); Carbon Dioxide 16 mmol/L (22-29); Chloride 91 mmol/L (96-108); Potassium 5.6 mmol/L (3.3-5.1); Sodium 122 mmol/L (135-145)
[2022-09-07 09:55] LABS: Blood Urea Nitrogen 61 mg/dL (9-16); Calcium 8.5 mg/dL (8.4-10.2); Creatinine Clr Calc Pharmacy 9.6; Estimated Glomerular Filt Rate 10; Glucose Random 129 mg/dL (60-115)
--- NOTE | 2022-09-07 11:39 | HO.PM.IMPN ---
Subjective Subjective Date of Service: 09/07/22 Interval History: This history was taken in Malay from the patient. to HD today no other complaints Review of Systems Review of Systems: Yes all other systems are reviewed and are negative Physical Exam Vital Signs: Vital Signs: Last Vital Signs Temp 97.6 F 09/07/22 07:58 Pulse 69 09/07/22 07:58 Resp 18 09/07/22 07:58 BP 157/91 H 09/07/22 07:58 Pulse Ox 92 09/07/22 07:58 O2 Del Method 09/07/22 07:58 O2 Flow Rate 2.0 08/27/22 07:58 Oxygen Flow Rate 2 08/25/22 17:41 BMI result Body Mass Index 22.6 Const: Other: Gen: in no acute distress HEENT: sclera anicteric, moist mucus membranes Neck: supple, R SC HD catheter intact Lungs: clear to auscultation bilaterally Heart: regular rate and rhythm, no murmurs Abd: soft, non-tender, non-distended Ext: no edema Skin: warm/well-perfused Neuro: alert, mildly confused Psych: appropriate affect Objective Data Active Medications Acetaminophen (Acetaminophen 325 Mg Tablet) 650 mg PO Q6H PRN PRN Reason: Pain, Mild (Pain Scale 1-3) Amiodarone HCl (Amiodarone Hcl 200 Mg Tablet) 200 mg PO DAILY [facility] Last Admin: 09/06/22 08:39 Dose: 200 mg Documented By: BELA Apixaban (Apixaban 2.5 Mg Tablet) 2.5 mg PO BID [facility] Last Admin: 09/06/22 19:41 Dose: 2.5 mg Documented By: OSCAR Atorvastatin Calcium (Atorvastatin Calcium 80 Mg Tablet) 80 mg PO BEDTIME [facility] Last Admin: 08/25/22 21:41 Dose: 80 mg Documented By: MADDENL Bumetanide (Bumetanide 1 Mg Tablet) 1 mg PO BIDWM [facility]; Protocol Last Admin: 09/06/22 17:41 Dose: 1 mg Documented By: DEISY Carvedilol (Carvedilol 3.125 Mg Tablet) 3.125 mg PO BID [facility]; Protocol Last Admin: 09/06/22 19:42 Dose: 3.125 mg Documented By: OSACR Dextrose (Dextrose 50 % 25 Gm/50 Ml Vial) 25 gm IVPUSH Q15M PRN; Protocol PRN Reason: per Hypoglycemia Standing Ord. Fluoxetine HCl (Fluoxetine Hcl 20 Mg Capsule) 20 mg PO DAILY [facility] Last Admin: 09/06/22 08:39 Dose: 20 mg Documented By: BELA Glucose (Glucose Gel 15 Gm Gel..Gram.) 15 gm PO Q15M PRN; Protocol PRN Reason: per Hypoglycemia Standing Ord. Guaifenesin/Codeine Phosphate (Guaifen/Codeine Sf 200/20/10ml 10 Ml Liquid) 10 ml PO Q4H PRN PRN Reason: Cough Insulin Glargine (Insulin Glargine,Hum.Rec.Anlog 100 Unit/Ml 10 Ml Vial) 10 unit SUBCUT DAILY [facility] Last Admin: 09/06/22 08:39 Dose: 10 unit Documented By: BELA Insulin Human Lispro (Insulin Lispro 100 Unit/Ml 3 Ml Vial) 0 unit SUBCUT QIDACHS [facility]; Protocol Last Admin: 09/07/22 07:50 Dose: Not Given Documented By: DEISY Non-Admin Reason: No Insulin Coverage Melatonin (Melatonin 3 Mg Tablet) 6 mg PO BEDTIME PRN PRN Reason: Insomnia Ondansetron HCl (Ondansetron Hcl 4 Mg/2 Ml Vial) 4 mg IVPUSH Q8H PRN PRN Reason: Nausea and Vomiting Pharmacy Consult (Consult Rx Perform Med Rec) 1 each MISCELLANE ONCE PRN PRN Reason: Consult order Sodium Chloride (0.9 % Sodium Chloride Flush 3 Ml Syringe) 3 ml IVFLUSH QSHIFT [facility] Last Admin: 09/07/22 00:08 Dose: Not Given Documented By: SUKHWINDER Non-Admin Reason: Patient Asleep Vitamin D (Cholecalciferol (Vitamin D3) 25 Mcg Tablet) 50 mcg PO DAILY [facility] Last Admin: 09/06/22 08:39 Dose: 50 mcg Documented By: BELA Labs 09/04/22 05:35 09/07/22 09:10 Labs: Laboratory Results - last 24 hr 09/06/22 09/06/22 09/07/22 16:30 19:57 07:08 Anion Gap Estim Creat Clear Calc Estimated GFR POC Glucose 140 H 227 H 125 H Random Glucose Calcium 09/07/22 09:10 Anion Gap 21 H Estim Creat Clear Calc 9.6 Estimated GFR 10 POC Glucose Random Glucose 129 H Calcium 8.5 Assessment and Plan (1) Acute respiratory failure with hypoxia: Status: Acute (2) Community acquired pneumonia: Status: Acute (3) ESRD (end stage renal disease): Status: Acute Plan d#14 67 year-old male with ESRD on hemodialysis, coronary artery disease with ischemic cardiomyopathy and congestive heart failure with reduced ejection fraction, insulin-dependent diabetes mellitus, paroxysmal atrial fibrillation on Eliquis, and mood disorder who presented to the emergency department for evaluation of dyspnea and was admitted for left lower lobe PNA # acute hypoxic resp failure due to CAP - resolved, no longer hypoxic, completed ABX - not bacteremic, had CoNS which was a contaminant # elevated LFTs - largely resolved, HIDA negative, no surgical indication, probably had some degree of hepatitis from the pneumonia # toxic metabolic encephalopathy - slowly improving; likely new baseline - will need placement; family elusive # hypoNa # hyperK - attempt to correct with HD today - recheck electrolytes in AM # ESRD on hemodialysis - HD Tuesday # DM2 - basal-bolus insulin # paroxysmal AF - continue carvedilol - continue amiodarone - continue apixaban # chronic HFpEF - continue carvedilol, bumetanide # mood disorder - continue fluoxetine # VTE ppx: apixaban # dispo: STR pending placement In my clinical judgment, the patient requires continued inpatient hospitalization for the following reasons: safe placement Time Spent With Patient Time: Total time managing care of this patient today __30__ minutes. Quality Stroke Does the patient have a stroke diagnosis?: No VTE Prior VTE?: No VTE Risk Level:: Medical - moderate - high VTE Device Contraindication: Treatment Not Indicated VTE Drug Contraindication: N/A - Med Ordered
[2022-09-07] MEDS: Insulin Glargine,Hum.rec.anlog 100 UNIT/ML 10 ML VIAL 10 UNIT SUBCUT (14:34)
[2022-09-07 14:38] LABS: Glucose, Whole Blood 104 mg/dL (60-115)
--- NOTE | 2022-09-07 15:11 | PM.PNNEP ---
Subjective Subjective Date of Service: 09/07/22 Interval history: Seen and examined, events noted Physical Exam Vital Signs: Vital Signs: Last Vital Signs Temp 97.6 F 09/07/22 07:58 Pulse 69 09/07/22 07:58 Resp 18 09/07/22 07:58 BP 157/91 H 09/07/22 07:58 Pulse Ox 92 09/07/22 07:58 O2 Del Method 09/07/22 07:58 O2 Flow Rate 2.0 08/27/22 07:58 Oxygen Flow Rate 2 08/25/22 17:41 BMI result Body Mass Index 22.6 Const: Other: Awake alert intermittently confused General: cooperative, healthy appearing, comfortable, no acute distress, alert and awake Nutritional Appearance: average body habitus and thin Orientation/consciousness: oriented to person, oriented to place and patient oriented x3 HEENT: Head: Yes normal to inspection, Yes normocephalic and Yes atraumatic Face and sinus: Yes normal facial exam Mouth: Normal oral and palatal mucosa present Teeth and gingiva: dentition normal Eyes: General: appearance normal, both eyes and all related structures Eyelids: Yes eyelids normal Conjunctivae: conjunctivae normal Sclerae: sclerae normal Corneas: corneas normal Pupils: Equal, round and reactive pupils present EOM: EOMs intact bilaterally Neck: Neck: Yes supple Chest: Other: HD catheter present Resp: Other: Diminished left base with scant crackles Effort & Inspection: normal respiratory effort, able to speak in complete sentences, no audible wheezes, not labored, no respiratory distress and no use of accessory muscles Auscultation: clear to auscultation bilaterally and diminished lung sounds Cardio: Other: No S4; positive S1-S2; no S3 murmurs rubs gallops Rate: regular rate Rhythm: regular rhythm Heart sounds: S1 normal heart sound present and S2 normal heart sound present GI: Other: Soft nontender nondistended normoactive bowel sounds Inspection: No distended Palpation (GI): Soft to palpation, nontender, no guarding and not rigid : General: Yes no CVA tenderness Back/Spine/Pelvis: Back: no CVA tenderness Skin: General skin exam: no rashes or lesions noted and elasticity normal Lesions: no lesions Rashes: no rashes Neuro: Other: face symmetrical, tongue midline, hand grasp equal, able to move all extremities General: oriented to person, oriented to place, patient oriented x3 and moves all extremities Cranial nerves: Yes Equal, round and reactive pupils present and Yes Midline tongue present Extrem: Other: No edema bilaterally General: Yes normal to inspection, Yes full ROM and Yes no pedal edema Psych: Appearance: grossly normal Objective Data Labs 09/04/22 05:35 09/07/22 09:10 Labs: Laboratory Results - last 24 hr 09/06/22 09/06/22 09/07/22 16:30 19:57 07:08 Sodium Potassium Chloride Carbon Dioxide Anion Gap BUN Creatinine Estim Creat Clear Calc Estimated GFR POC Glucose 140 H 227 H 125 H Random Glucose Calcium 09/07/22 09/07/22 09:10 14:33 Sodium 122 L Potassium 5.6 H Chloride 91 L Carbon Dioxide 16 L Anion Gap 21 H BUN 61 H Creatinine 5.56 H* Estim Creat Clear Calc 9.6 Estimated GFR 10 POC Glucose 104 Random Glucose 129 H Calcium 8.5 Microbiology Microbiology Results: Microbiology 08/27/22 08:02 Blood - Venous Blood Culture - Final No growth after 5 days. 08/27/22 07:55 Blood - Venous Blood Culture - Final No growth after 5 days. 08/25/22 19:40 Blood - Venous Blood Culture - Final Staphylococcus epidermidis 08/25/22 19:40 Blood - Venous Blood Culture - Final Staphylococcus epidermidis Procedures Date of Service Date of Service: 09/07/22 Assessment & Plan Assessment and plan (1) ESRD (end stage renal disease): Status: Acute (2) HFrEF (heart failure with reduced ejection fraction): Status: Acute Assessment and Plan: euvolemic now (3) Bacteremia due to Staphylococcus: Status: Acute Assessment and Plan: - ESRD: TTS - Pnuemonia: resolved - Staph epi ( 08/25) and subsequent Bld Cult neg REC: no new recs; cont hD TTS; d/c planning; track HB and EPO as needed will follow w team Time Spent With Patient Time: Total time managing care of this patient today ____ minutes. Progress Note: Quality Stroke Does the patient have a stroke diagnosis?: No
[2022-09-07 15:29] VITALS: BP 142/77; PULSE 73; RESP 17; TEMP 36.4; O2SAT 95
[2022-09-07 16:37] LABS: Glucose, Whole Blood 189 mg/dL (60-115)
[2022-09-07] MEDS: Bumetanide 1 MG TABLET PO (17:13)
[2022-09-07] MEDS: Insulin Lispro 100 UNIT/ML 3 ML VIAL SUBCUT (17:13)
[2022-09-07] MEDS: 0.9 % Sodium Chloride Flush 3 ML SYRINGE IVFLUSH ×2 (17:14→21:02)
[2022-09-07 19:49] VITALS: BP 112/62; PULSE 65; RESP 18; TEMP 36.6; O2SAT 98
[2022-09-07 20:42] LABS: Glucose, Whole Blood 137 mg/dL (60-115)
[2022-09-07] MEDS: carvediloL 3.125 MG TABLET PO (21:02)
[2022-09-07] MEDS: Apixaban 2.5 MG TABLET PO (21:02)
[2022-09-08 03:19] VITALS: BP 140/80; PULSE 67; RESP 17; TEMP 36.4; O2SAT 96
[2022-09-08 07:12] VITALS: BP 150/80; PULSE 67; RESP 16; TEMP 36.6; O2SAT 92
[2022-09-08 07:13] LABS: Anion Gap 16 (12-20); Blood Urea Nitrogen 33 mg/dL (9-16); Calcium 8.2 mg/dL (8.4-10.2); Carbon Dioxide 20 mmol/L (22-29); Chloride 96 mmol/L (96-108); Creatinine Clr Calc Pharmacy 13.3; Estimated Glomerular Filt Rate 15; Glucose Random 94 mg/dL (60-115); Potassium 4.4 mmol/L (3.3-5.1); Sodium 128 mmol/L (135-145)
[2022-09-08 07:20] LABS: Glucose, Whole Blood 91 mg/dL (60-115)
[2022-09-08] MEDS: FLUoxetine HCl 20 MG CAPSULE PO (09:35)
[2022-09-08] MEDS: Amiodarone HCL 200 MG TABLET PO (09:35)
[2022-09-08] MEDS: Bumetanide 1 MG TABLET PO ×2 (09:36→17:30)
[2022-09-08] MEDS: Apixaban 2.5 MG TABLET PO ×2 (09:36→21:12)
[2022-09-08] MEDS: carvediloL 3.125 MG TABLET PO ×2 (09:36→21:12)
[2022-09-08] MEDS: 0.9 % Sodium Chloride Flush 3 ML SYRINGE IVFLUSH ×3 (09:37→21:12)
[2022-09-08] MEDS: Cholecalciferol (Vitamin D3) 25 MCG TABLET 50 MCG PO (09:43)
[2022-09-08] MEDS: Insulin Glargine,Hum.rec.anlog 100 UNIT/ML 10 ML VIAL 10 UNIT SUBCUT (10:30)
--- NOTE | 2022-09-08 10:47 | MHC.CM.PN ---
PT is recommending STR and Patient is medically cleared for dc. SNF referrals have been updated and CM continues to follow for a SNF bed offer.
[2022-09-08 11:08] LABS: Glucose, Whole Blood 205 mg/dL (60-115)
[2022-09-08] MEDS: Insulin Lispro 100 UNIT/ML 3 ML VIAL SUBCUT ×2 (12:17→21:11)
--- NOTE | 2022-09-08 13:09 | MHC.CLN ---
F/U DIET PER DIABETIC, RENAL PARAMETERS WITH DIALYSIS. DIET=DIABETIC 1800 KCAL, 2 GRAM SODIUM, LOW POTASSIUM, LOW PHOSPHORUS. INTAKE MOST MEALS CONTINUES TO BE GOOD, 75-100%. DIALYSIS T, TH, SAT. CONTINUE TO FOLLOW FOR INTAKE AND WEIGHT.
--- NOTE | 2022-09-08 15:05 | HO.PM.IMPN ---
Subjective Subjective Date of Service: 09/08/22 Interval History: no complaints This history was taken in Irish from the patient. Review of Systems Review of Systems: Yes all other systems are reviewed and are negative Physical Exam Vital Signs: Vital Signs: Last Vital Signs Temp 98 F 09/08/22 07:12 Pulse 67 09/08/22 07:12 Resp 16 09/08/22 07:12 BP 150/80 H 09/08/22 07:12 Pulse Ox 92 09/08/22 07:12 O2 Del Method 09/08/22 07:12 O2 Flow Rate 2.0 08/27/22 07:58 Oxygen Flow Rate 2 08/25/22 17:41 BMI result Body Mass Index 22.6 Gen: in no acute distress HEENT: sclera anicteric, moist mucus membranes Neck: supple, L SC HD catheter intact Lungs: clear to auscultation bilaterally Heart: regular rate and rhythm, no murmurs Abd: soft, non-tender, non-distended Ext: no edema Skin: warm/well-perfused Neuro: alert, mildly confused Psych: appropriate affect Objective Data Active Medications Acetaminophen (Acetaminophen 325 Mg Tablet) 650 mg PO Q6H PRN PRN Reason: Pain, Mild (Pain Scale 1-3) Amiodarone HCl (Amiodarone Hcl 200 Mg Tablet) 200 mg PO DAILY [facility] Last Admin: 09/08/22 09:35 Dose: 200 mg Documented By: CURT Apixaban (Apixaban 2.5 Mg Tablet) 2.5 mg PO BID [facility] Last Admin: 09/08/22 09:36 Dose: 2.5 mg Documented By: CURT Atorvastatin Calcium (Atorvastatin Calcium 80 Mg Tablet) 80 mg PO BEDTIME [facility] Last Admin: 08/25/22 21:41 Dose: 80 mg Documented By: MADDENKiesha Bumetanide (Bumetanide 1 Mg Tablet) 1 mg PO BIDWM [facility]; Protocol Last Admin: 09/08/22 09:36 Dose: 1 mg Documented By: CURT Carvedilol (Carvedilol 3.125 Mg Tablet) 3.125 mg PO BID [facility]; Protocol Last Admin: 09/08/22 09:36 Dose: 3.125 mg Documented By: CURT Dextrose (Dextrose 50 % 25 Gm/50 Ml Vial) 25 gm IVPUSH Q15M PRN; Protocol PRN Reason: per Hypoglycemia Standing Ord. Fluoxetine HCl (Fluoxetine Hcl 20 Mg Capsule) 20 mg PO DAILY [facility] Last Admin: 09/08/22 09:35 Dose: 20 mg Documented By: CURT Glucose (Glucose Gel 15 Gm Gel..Gram.) 15 gm PO Q15M PRN; Protocol PRN Reason: per Hypoglycemia Standing Ord. Insulin Glargine (Insulin Glargine,Hum.Rec.Anlog 100 Unit/Ml 10 Ml Vial) 10 unit SUBCUT DAILY [facility] Last Admin: 09/08/22 10:30 Dose: 10 unit Documented By: CURT Insulin Human Lispro (Insulin Lispro 100 Unit/Ml 3 Ml Vial) 0 unit SUBCUT QIDACHS [facility]; Protocol Last Admin: 09/08/22 12:17 Dose: 4 unit Documented By: TONIO Melatonin (Melatonin 3 Mg Tablet) 6 mg PO BEDTIME PRN PRN Reason: Insomnia Ondansetron HCl (Ondansetron Hcl 4 Mg/2 Ml Vial) 4 mg IVPUSH Q8H PRN PRN Reason: Nausea and Vomiting Pharmacy Consult (Consult Rx Perform Med Rec) 1 each MISCELLANE ONCE PRN PRN Reason: Consult order Sodium Chloride (0.9 % Sodium Chloride Flush 3 Ml Syringe) 3 ml IVFLUSH QSHIFT [facility] Last Admin: 09/08/22 09:37 Dose: 3 ml Documented By: CURT Vitamin D (Cholecalciferol (Vitamin D3) 25 Mcg Tablet) 50 mcg PO DAILY [facility] Last Admin: 09/08/22 09:43 Dose: 50 mcg Documented By: CURT Labs 09/04/22 05:35 09/08/22 06:23 Labs: Laboratory Results - last 24 hr 09/07/22 09/07/22 09/08/22 16:33 20:38 06:23 Anion Gap 16 Estim Creat Clear Calc 13.3 Estimated GFR 15 POC Glucose 189 H 137 H Random Glucose 94 Calcium 8.2 L 09/08/22 09/08/22 07:11 11:05 Anion Gap Estim Creat Clear Calc Estimated GFR POC Glucose 91 205 H Random Glucose Calcium Assessment and Plan (1) Acute respiratory failure with hypoxia: Status: Acute (2) Community acquired pneumonia: Status: Acute (3) ESRD (end stage renal disease): Status: Acute Plan d#15 67 year-old male with ESRD on hemodialysis, coronary artery disease with ischemic cardiomyopathy and congestive heart failure with reduced ejection fraction, insulin-dependent diabetes mellitus, paroxysmal atrial fibrillation on Eliquis, and mood disorder who presented to the emergency department for evaluation of dyspnea and was admitted for left lower lobe PNA # acute hypoxic resp failure due to CAP - resolved, no longer hypoxic, completed ABX - not bacteremic, had CoNS which was a contaminant # elevated LFTs - largely resolved, HIDA negative, no surgical indication, probably had some degree of hepatitis from the pneumonia # toxic metabolic encephalopathy - slowly improving; likely new baseline - will need placement; family elusive # hypoNa - improved after HD, HD again tomorrow # hyperK - resolved p HD # ESRD on hemodialysis - HD Tuesday # DM2 - basal-bolus insulin # paroxysmal AF - continue carvedilol - continue amiodarone - continue apixaban # chronic HFpEF - continue carvedilol, bumetanide # mood disorder - continue fluoxetine # VTE ppx: apixaban # dispo: STR pending placement In my clinical judgment, the patient requires continued inpatient hospitalization for the following reasons: safe placement Time Spent With Patient Time: Total time managing care of this patient today _25___ minutes. Quality Stroke Does the patient have a stroke diagnosis?: No VTE Prior VTE?: No VTE Risk Level:: Medical - moderate - high VTE Device Contraindication: Treatment Not Indicated VTE Drug Contraindication: N/A - Med Ordered
[2022-09-08 15:30] VITALS: BP 130/67; PULSE 65; RESP 16; TEMP 36.2; O2SAT 96
[2022-09-08 16:42] LABS: Glucose, Whole Blood 121 mg/dL (60-115)
--- NOTE | 2022-09-08 17:37 | PM.PNNEP ---
Subjective Subjective Date of Service: 09/08/22 Interval history: Seen and examined,e vents noted Physical Exam Vital Signs: Vital Signs: Last Vital Signs Temp 97.2 F 09/08/22 15:30 Pulse 65 09/08/22 15:30 Resp 16 09/08/22 15:30 BP 130/67 09/08/22 15:30 Pulse Ox 96 09/08/22 15:30 O2 Del Method 09/08/22 15:30 O2 Flow Rate 2.0 08/27/22 07:58 Oxygen Flow Rate 2 08/25/22 17:41 BMI result Body Mass Index 22.6 Const: Other: Awake alert intermittently confused General: cooperative, healthy appearing, comfortable, no acute distress, alert and awake Nutritional Appearance: average body habitus and thin Orientation/consciousness: oriented to person, oriented to place and patient oriented x3 HEENT: Head: Yes normal to inspection, Yes normocephalic and Yes atraumatic Face and sinus: Yes normal facial exam Mouth: Normal oral and palatal mucosa present Teeth and gingiva: dentition normal Eyes: General: appearance normal, both eyes and all related structures Eyelids: Yes eyelids normal Conjunctivae: conjunctivae normal Sclerae: sclerae normal Corneas: corneas normal Pupils: Equal, round and reactive pupils present EOM: EOMs intact bilaterally Neck: Neck: Yes supple Chest: Other: HD catheter present Resp: Other: Diminished left base with scant crackles Effort & Inspection: normal respiratory effort, able to speak in complete sentences, no audible wheezes, not labored, no respiratory distress and no use of accessory muscles Auscultation: clear to auscultation bilaterally and diminished lung sounds Cardio: Other: No S4; positive S1-S2; no S3 murmurs rubs gallops Rate: regular rate Rhythm: regular rhythm Heart sounds: S1 normal heart sound present and S2 normal heart sound present GI: Other: Soft nontender nondistended normoactive bowel sounds Inspection: No distended Palpation (GI): Soft to palpation, nontender, no guarding and not rigid : General: Yes no CVA tenderness Back/Spine/Pelvis: Back: no CVA tenderness Skin: General skin exam: no rashes or lesions noted and elasticity normal Lesions: no lesions Rashes: no rashes Neuro: Other: face symmetrical, tongue midline, hand grasp equal, able to move all extremities General: oriented to person, oriented to place, patient oriented x3 and moves all extremities Cranial nerves: Yes Equal, round and reactive pupils present and Yes Midline tongue present Extrem: Other: No edema bilaterally General: Yes normal to inspection, Yes full ROM and Yes no pedal edema Psych: Appearance: grossly normal Objective Data Labs 09/04/22 05:35 09/08/22 06:23 Labs: Laboratory Results - last 24 hr 09/07/22 09/08/22 09/08/22 20:38 06:23 07:11 Sodium 128 L Potassium 4.4 D Chloride 96 Carbon Dioxide 20 L Anion Gap 16 BUN 33 H Creatinine 4.02 H* Estim Creat Clear Calc 13.3 Estimated GFR 15 POC Glucose 137 H 91 Random Glucose 94 Calcium 8.2 L 09/08/22 09/08/22 11:05 16:39 Sodium Potassium Chloride Carbon Dioxide Anion Gap BUN Creatinine Estim Creat Clear Calc Estimated GFR POC Glucose 205 H 121 H Random Glucose Calcium Microbiology Microbiology Results: Microbiology 08/27/22 08:02 Blood - Venous Blood Culture - Final No growth after 5 days. 08/27/22 07:55 Blood - Venous Blood Culture - Final No growth after 5 days. 08/25/22 19:40 Blood - Venous Blood Culture - Final Staphylococcus epidermidis 08/25/22 19:40 Blood - Venous Blood Culture - Final Staphylococcus epidermidis Procedures Date of Service Date of Service: 09/08/22 Assessment & Plan Assessment and plan (1) ESRD (end stage renal disease): Status: Acute (2) HFrEF (heart failure with reduced ejection fraction): Status: Acute Assessment and Plan: euvolemic now (3) Bacteremia due to Staphylococcus: Status: Acute Assessment and Plan: - ESRD: TTS - Pnuemonia: resolved - Staph epi ( 08/25) and subsequent Bld Cult neg REC: no new recs; cont hD TTS; d/c planning; track HB and hold EPO for now will follow w team Time Spent With Patient Time: Total time managing care of this patient today ____ minutes. Progress Note: Quality Stroke Does the patient have a stroke diagnosis?: No
[2022-09-08 19:38] VITALS: BP 132/76; PULSE 61; RESP 15; TEMP 36.2; O2SAT 96
[2022-09-08 20:13] LABS: Glucose, Whole Blood 209 mg/dL (60-115)
[2022-09-09 03:16] VITALS: BP 132/79; PULSE 64; RESP 16; TEMP 36.1; O2SAT 94
[2022-09-09 06:30] LABS: Anion Gap 16 (12-20); Blood Urea Nitrogen 54 mg/dL (9-16); Calcium 8.2 mg/dL (8.4-10.2); Carbon Dioxide 21 mmol/L (22-29); Chloride 95 mmol/L (96-108); Glucose Random 104 mg/dL (60-115); Potassium 4.6 mmol/L (3.3-5.1); Sodium 127 mmol/L (135-145)
[2022-09-09 06:32] LABS: Creatinine Clr Calc Pharmacy 9.9; Estimated Glomerular Filt Rate 11
[2022-09-09 07:25] LABS: Glucose, Whole Blood 106 mg/dL (60-115)
[2022-09-09] MEDS: Cholecalciferol (Vitamin D3) 25 MCG TABLET 50 MCG PO (07:42)
[2022-09-09] MEDS: Bumetanide 1 MG TABLET PO ×2 (07:42→17:22)
[2022-09-09] MEDS: FLUoxetine HCl 20 MG CAPSULE PO (07:42)
[2022-09-09] MEDS: Amiodarone HCL 200 MG TABLET PO (07:42)
[2022-09-09] MEDS: carvediloL 3.125 MG TABLET PO (07:42)
[2022-09-09] MEDS: Insulin Glargine,Hum.rec.anlog 100 UNIT/ML 10 ML VIAL 10 UNIT SUBCUT (07:43)
[2022-09-09] MEDS: 0.9 % Sodium Chloride Flush 3 ML SYRINGE IVFLUSH ×2 (07:43→17:23)
[2022-09-09] MEDS: Apixaban 2.5 MG TABLET PO ×2 (07:43→21:39)
[2022-09-09 07:54] VITALS: BP 132/78; PULSE 66; RESP 18; TEMP 36.7; O2SAT 92
--- NOTE | 2022-09-09 11:17 | HO.PM.IMPN ---
Subjective Subjective Date of Service: 09/09/22 Interval History: no complaints in HD today This history was taken in [place] from the patient. Review of Systems Review of Systems: Yes all other systems are reviewed and are negative Physical Exam Vital Signs: Vital Signs: Last Vital Signs Temp 98.1 F 09/09/22 07:54 Pulse 66 09/09/22 07:54 Resp 18 09/09/22 07:54 BP 132/78 09/09/22 07:54 Pulse Ox 92 09/09/22 07:54 O2 Del Method 09/09/22 07:54 O2 Flow Rate 2.0 08/27/22 07:58 Oxygen Flow Rate 2 08/25/22 17:41 BMI result Body Mass Index 22.6 Gen: in no acute distress HEENT: sclera anicteric, moist mucus membranes Neck: supple, L SC HD catheter intact Lungs: clear to auscultation bilaterally Heart: regular rate and rhythm, no murmurs Abd: soft, non-tender, non-distended Ext: no edema Skin: warm/well-perfused Neuro: alert, mildly confused Psych: appropriate affect Objective Data Active Medications Acetaminophen (Acetaminophen 325 Mg Tablet) 650 mg PO Q6H PRN PRN Reason: Pain, Mild (Pain Scale 1-3) Amiodarone HCl (Amiodarone Hcl 200 Mg Tablet) 200 mg PO DAILY ON LICENSE OF [facility] Last Admin: 09/09/22 07:42 Dose: 200 mg Documented By: MICKEY Apixaban (Apixaban 2.5 Mg Tablet) 2.5 mg PO BID ON LICENSE OF [facility] Last Admin: 09/09/22 07:43 Dose: 2.5 mg Documented By: MICKEY Atorvastatin Calcium (Atorvastatin Calcium 80 Mg Tablet) 80 mg PO BEDTIME ON LICENSE OF [facility] Last Admin: 08/25/22 21:41 Dose: 80 mg Documented By: MADDENL Bumetanide (Bumetanide 1 Mg Tablet) 1 mg PO BIDWM ON LICENSE OF [facility]; Protocol Last Admin: 09/09/22 07:42 Dose: 1 mg Documented By: MICKEY Carvedilol (Carvedilol 3.125 Mg Tablet) 3.125 mg PO BID ON LICENSE OF [facility]; Protocol Last Admin: 09/09/22 07:42 Dose: 3.125 mg Documented By: MICKEY Dextrose (Dextrose 50 % 25 Gm/50 Ml Vial) 25 gm IVPUSH Q15M PRN; Protocol PRN Reason: per Hypoglycemia Standing Ord. Fluoxetine HCl (Fluoxetine Hcl 20 Mg Capsule) 20 mg PO DAILY ON LICENSE OF [facility] Last Admin: 09/09/22 07:42 Dose: 20 mg Documented By: MICKEY Glucose (Glucose Gel 15 Gm Gel..Gram.) 15 gm PO Q15M PRN; Protocol PRN Reason: per Hypoglycemia Standing Ord. Insulin Glargine (Insulin Glargine,Hum.Rec.Anlog 100 Unit/Ml 10 Ml Vial) 10 unit SUBCUT DAILY ON LICENSE OF [facility] Last Admin: 09/09/22 07:43 Dose: 10 unit Documented By: MICKEY Insulin Human Lispro (Insulin Lispro 100 Unit/Ml 3 Ml Vial) 0 unit SUBCUT QIDACHS ON LICENSE OF [facility]; Protocol Last Admin: 09/09/22 07:44 Dose: Not Given Documented By: MICKEY Non-Admin Reason: No Insulin Coverage Melatonin (Melatonin 3 Mg Tablet) 6 mg PO BEDTIME PRN PRN Reason: Insomnia Ondansetron HCl (Ondansetron Hcl 4 Mg/2 Ml Vial) 4 mg IVPUSH Q8H PRN PRN Reason: Nausea and Vomiting Pharmacy Consult (Consult Rx Perform Med Rec) 1 each MISCELLANE ONCE PRN PRN Reason: Consult order Sodium Chloride (0.9 % Sodium Chloride Flush 3 Ml Syringe) 3 ml IVFLUSH QSHIFT ON LICENSE OF [facility] Last Admin: 09/09/22 07:43 Dose: 3 ml Documented By: MICKEY Vitamin D (Cholecalciferol (Vitamin D3) 25 Mcg Tablet) 50 mcg PO DAILY ON LICENSE OF [facility] Last Admin: 09/09/22 07:42 Dose: 50 mcg Documented By: MICKEY Labs 09/04/22 05:35 09/09/22 05:33 Labs: Laboratory Results - last 24 hr 09/08/22 09/08/22 09/09/22 16:39 20:09 05:33 Anion Gap 16 Estim Creat Clear Calc 9.9 Estimated GFR 11 POC Glucose 121 H 209 H Random Glucose 104 Calcium 8.2 L 09/09/22 07:20 Anion Gap Estim Creat Clear Calc Estimated GFR POC Glucose 106 Random Glucose Calcium Assessment and Plan (1) Acute respiratory failure with hypoxia: Status: Acute (2) Community acquired pneumonia: Status: Acute (3) ESRD (end stage renal disease): Status: Acute Plan d#16 67 year-old male with ESRD on hemodialysis, coronary artery disease with ischemic cardiomyopathy and congestive heart failure with reduced ejection fraction, insulin-dependent diabetes mellitus, paroxysmal atrial fibrillation on Eliquis, and mood disorder who presented to the emergency department for evaluation of dyspnea and was admitted for left lower lobe PNA # acute hypoxic resp failure due to CAP - resolved, no longer hypoxic, completed ABX - not bacteremic, had coag-neg Staph in 2/2 sets which was attributed to contamination # elevated LFTs - largely resolved, HIDA negative, no surgical indication, probably had some degree of hepatitis from the pneumonia # toxic metabolic encephalopathy - slowly improving; likely new baseline - will need placement; family elusive # hypoNa - improved after HD, HD TuTuSa # hyperK - resolved p HD # ESRD on hemodialysis - HD TuThSa # DM2 - basal-bolus insulin # paroxysmal AF - continue carvedilol - continue amiodarone - continue apixaban # chronic HFpEF - continue carvedilol, bumetanide # mood disorder - continue fluoxetine # VTE ppx: apixaban # dispo: STR pending placement In my clinical judgment, the patient requires continued inpatient hospitalization for the following reasons: safe placement Time Spent With Patient Time: Total time managing care of this patient today __25__ minutes. Quality Stroke Does the patient have a stroke diagnosis?: No VTE Prior VTE?: No VTE Risk Level:: Medical - moderate - high VTE Device Contraindication: Treatment Not Indicated VTE Drug Contraindication: N/A - Med Ordered
[2022-09-09 14:08] LABS: Glucose, Whole Blood 136 mg/dL (60-115)
[2022-09-09 15:04] VITALS: BP 132/71; PULSE 60; RESP 60; TEMP 36.5; O2SAT 93
[2022-09-09 17:04] LABS: Glucose, Whole Blood 235 mg/dL (60-115)
[2022-09-09] MEDS: Insulin Lispro 100 UNIT/ML 3 ML VIAL SUBCUT ×2 (17:23→21:39)
[2022-09-09 19:35] VITALS: BP 117/71; PULSE 60; RESP 16; TEMP 36.2; O2SAT 93
--- NOTE | 2022-09-09 19:43 | PM.PNNEP ---
Subjective Subjective Date of Service: 09/09/22 Interval history: Seen and examined, events noted Physical Exam Vital Signs: Vital Signs: Last Vital Signs Temp 97.2 F 09/09/22 19:35 Pulse 60 09/09/22 19:35 Resp 16 09/09/22 19:35 BP 117/71 09/09/22 19:35 Pulse Ox 93 09/09/22 19:35 O2 Del Method 09/09/22 19:35 O2 Flow Rate 2.0 08/27/22 07:58 Oxygen Flow Rate 2 08/25/22 17:41 BMI result Body Mass Index 22.6 Const: Other: Awake alert intermittently confused General: cooperative, healthy appearing, comfortable, no acute distress, alert and awake Nutritional Appearance: average body habitus and thin Orientation/consciousness: oriented to person, oriented to place and patient oriented x3 HEENT: Head: Yes normal to inspection, Yes normocephalic and Yes atraumatic Face and sinus: Yes normal facial exam Mouth: Normal oral and palatal mucosa present Teeth and gingiva: dentition normal Eyes: General: appearance normal, both eyes and all related structures Eyelids: Yes eyelids normal Conjunctivae: conjunctivae normal Sclerae: sclerae normal Corneas: corneas normal Pupils: Equal, round and reactive pupils present EOM: EOMs intact bilaterally Neck: Neck: Yes supple Chest: Other: HD catheter present Resp: Other: Diminished left base with scant crackles Effort & Inspection: normal respiratory effort, able to speak in complete sentences, no audible wheezes, not labored, no respiratory distress and no use of accessory muscles Auscultation: clear to auscultation bilaterally and diminished lung sounds Cardio: Other: No S4; positive S1-S2; no S3 murmurs rubs gallops Rate: regular rate Rhythm: regular rhythm Heart sounds: S1 normal heart sound present and S2 normal heart sound present GI: Other: Soft nontender nondistended normoactive bowel sounds Inspection: No distended Palpation (GI): Soft to palpation, nontender, no guarding and not rigid : General: Yes no CVA tenderness Back/Spine/Pelvis: Back: no CVA tenderness Skin: General skin exam: no rashes or lesions noted and elasticity normal Lesions: no lesions Rashes: no rashes Neuro: Other: face symmetrical, tongue midline, hand grasp equal, able to move all extremities General: oriented to person, oriented to place, patient oriented x3 and moves all extremities Cranial nerves: Yes Equal, round and reactive pupils present and Yes Midline tongue present Extrem: Other: No edema bilaterally General: Yes normal to inspection, Yes full ROM and Yes no pedal edema Psych: Appearance: grossly normal Objective Data Labs 09/04/22 05:35 09/09/22 05:33 Labs: Laboratory Results - last 24 hr 09/08/22 09/09/22 09/09/22 20:09 05:33 07:20 Sodium 127 L Potassium 4.6 Chloride 95 L Carbon Dioxide 21 L Anion Gap 16 BUN 54 H Creatinine 5.41 H* Estim Creat Clear Calc 9.9 Estimated GFR 11 POC Glucose 209 H 106 Random Glucose 104 Calcium 8.2 L 09/09/22 09/09/22 14:05 16:40 Sodium Potassium Chloride Carbon Dioxide Anion Gap BUN Creatinine Estim Creat Clear Calc Estimated GFR POC Glucose 136 H 235 H Random Glucose Calcium Microbiology Microbiology Results: Microbiology 08/27/22 08:02 Blood - Venous Blood Culture - Final No growth after 5 days. 08/27/22 07:55 Blood - Venous Blood Culture - Final No growth after 5 days. 08/25/22 19:40 Blood - Venous Blood Culture - Final Staphylococcus epidermidis 08/25/22 19:40 Blood - Venous Blood Culture - Final Staphylococcus epidermidis Procedures Date of Service Date of Service: 09/09/22 Assessment & Plan Assessment and plan (1) ESRD (end stage renal disease): Status: Acute (2) HFrEF (heart failure with reduced ejection fraction): Status: Acute Assessment and Plan: euvolemic now (3) Bacteremia due to Staphylococcus: Status: Acute Assessment and Plan: - ESRD: TTS: currently on HD - Pnuemonia: resolved - Staph epi ( 08/25) and subsequent Bld Cult neg REC: no new recs; cont hD TTS; d/c planning; track HB and hold EPO for now will follow w team Time Spent With Patient Time: Total time managing care of this patient today ____ minutes. Progress Note: Quality Stroke Does the patient have a stroke diagnosis?: No
[2022-09-09 20:28] LABS: Glucose, Whole Blood 167 mg/dL (60-115)
[2022-09-10 04:00] VITALS: PULSE 66; RESP 18; TEMP 36.4; O2SAT 100
[2022-09-10 04:04] VITALS: BP 133/78
[2022-09-10 06:53] LABS: Anion Gap 19 (12-20); Blood Urea Nitrogen 35 mg/dL (9-16); Calcium 8.4 mg/dL (8.4-10.2); Carbon Dioxide 15 mmol/L (22-29); Chloride 97 mmol/L (96-108); Creatinine Clr Calc Pharmacy 13.7; Estimated Glomerular Filt Rate 15; Glucose Random 102 mg/dL (60-115); Potassium 4.5 mmol/L (3.3-5.1); Sodium 126 mmol/L (135-145)
[2022-09-10 07:38] VITALS: BP 136/79; PULSE 67; RESP 18; TEMP 36.9; O2SAT 98
[2022-09-10 07:45] LABS: Glucose, Whole Blood 103 mg/dL (60-115)
[2022-09-10] MEDS: carvediloL 3.125 MG TABLET PO ×2 (08:01→20:14)
[2022-09-10] MEDS: Bumetanide 1 MG TABLET PO ×2 (08:02→17:41)
[2022-09-10] MEDS: 0.9 % Sodium Chloride Flush 3 ML SYRINGE IVFLUSH ×3 (08:02→20:15)
[2022-09-10] MEDS: Cholecalciferol (Vitamin D3) 25 MCG TABLET 50 MCG PO (08:02)
[2022-09-10] MEDS: Amiodarone HCL 200 MG TABLET PO (08:02)
[2022-09-10] MEDS: FLUoxetine HCl 20 MG CAPSULE PO (08:02)
[2022-09-10] MEDS: Apixaban 2.5 MG TABLET PO ×2 (08:02→20:15)
[2022-09-10] MEDS: Insulin Glargine,Hum.rec.anlog 100 UNIT/ML 10 ML VIAL 10 UNIT SUBCUT (08:02)
[2022-09-10 08:29] LABS: MANUAL DIFF FLAG NO
[2022-09-10 08:35] LABS: Basophils Percent Auto 0.3 % (0-2); Eosinophils Percent Auto 0.4 % (0-4); Hematocrit 33.9 % (42.0-52.0); Hemoglobin 11.4 g/dl (14.0-18.0); Imm Gran Abs Auto 0.05 X10*3/uL (0.00-0.03); Imm Gran Pct Auto 0.5 % (0.0-0.4); Lymphocytes Absolute Auto 1.4 X10*3/uL (1.2-4.9); Lymphocytes Percent Auto 13.3 % (20-40); Mean Corpuscular HGB Conc 33.6 g/dl (31.0-36.0); Mean Corpuscular Volume 92.1 fL (80.0-98.0); Monocytes Absolute Auto 0.5 X10*3/uL (0.1-1.2); Monocytes Percent Auto 4.9 % (2-11); Neutrophils Absolute Auto 8.7 x10*3/uL (2.0-8.3); Neutrophils Percent Auto 80.6 % (45-73); Platelet Count 189 X10*3/uL (160-400); Red Blood Count 3.68 X10*6/uL (4.60-5.80); Red Cell Distribution Width 16.1 % (11.0-16.0); White Blood Count 10.8 X10*3/uL (4.8-10.8)
--- NOTE | 2022-09-10 10:04 | MHC.CLN ---
F/U DIET PER DIABETIC, RENAL PARAMETERS WITH DIALYSIS. DIET=DIABETIC 1800 KCAL, 2 GRAM SODIUM, LOW POTASSIUM, LOW PHOSPHORUS. INTAKE MOST MEALS CONTINUES TO BE GOOD, 75-100%. DIALYSIS T, TH, SAT. LOW SODIUM NOTED 09/10=126. CONTINUE TO FOLLOW INTAKE AND LABS.
[2022-09-10 10:25] VITALS: BP 136/79; PULSE 67; O2SAT 98
[2022-09-10 11:30] LABS: Glucose, Whole Blood 176 mg/dL (60-115)
[2022-09-10] MEDS: Insulin Lispro 100 UNIT/ML 3 ML VIAL SUBCUT (11:39)
--- NOTE | 2022-09-10 15:02 | HO.PM.IMPN ---
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 Feeling well. Review of Systems Review of Systems: Yes all other systems are reviewed and are negative Physical Exam Vital Signs: Vital Signs: Last Vital Signs Temp 98.4 F 09/10/22 07:38 Pulse 67 09/10/22 10:25 Resp 18 09/10/22 07:38 BP 136/79 09/10/22 10:25 Pulse Ox 98 09/10/22 10:25 O2 Del Method 09/10/22 07:38 O2 Flow Rate 2.0 08/27/22 07:58 Oxygen Flow Rate 2 08/25/22 17:41 BMI result Body Mass Index 22.6 Constitutional - Awake and Alert, No apparent distress Eyes - PERRLA, EOMI Cardiovascular - S1S2, RRR, No edema Respiratory - Normal lung expansion, Normal respiratory effort, No respiratory distress, CTA bilaterally Chest- L subclavian HD catheter in tact Gastrointestinal - NT / ND; +BS; No rebound or guarding Extremities - no calf tenderness bilaterally, no swelling Skin - Warm/Dry Neurological - Alert & oriented x3, but somewhat confused Psychological - Appropriate affect Objective Data Active Medications Acetaminophen (Acetaminophen 325 Mg Tablet) 650 mg PO Q6H PRN PRN Reason: Pain, Mild (Pain Scale 1-3) Amiodarone HCl (Amiodarone Hcl 200 Mg Tablet) 200 mg PO DAILY [facility] Last Admin: 09/10/22 08:02 Dose: 200 mg Documented By: MICKEY Apixaban (Apixaban 2.5 Mg Tablet) 2.5 mg PO BID [facility] Last Admin: 09/10/22 08:02 Dose: 2.5 mg Documented By: MICKEY Atorvastatin Calcium (Atorvastatin Calcium 80 Mg Tablet) 80 mg PO BEDTIME [facility] Last Admin: 08/25/22 21:41 Dose: 80 mg Documented By: MADDENL Bumetanide (Bumetanide 1 Mg Tablet) 1 mg PO BIDWM [facility]; Protocol Last Admin: 09/10/22 08:02 Dose: 1 mg Documented By: MICKEY Carvedilol (Carvedilol 3.125 Mg Tablet) 3.125 mg PO BID [facility]; Protocol Last Admin: 09/10/22 08:01 Dose: 3.125 mg Documented By: MICKEY Dextrose (Dextrose 50 % 25 Gm/50 Ml Vial) 25 gm IVPUSH Q15M PRN; Protocol PRN Reason: per Hypoglycemia Standing Ord. Fluoxetine HCl (Fluoxetine Hcl 20 Mg Capsule) 20 mg PO DAILY [facility] Last Admin: 09/10/22 08:02 Dose: 20 mg Documented By: MICKEY Glucose (Glucose Gel 15 Gm Gel..Gram.) 15 gm PO Q15M PRN; Protocol PRN Reason: per Hypoglycemia Standing Ord. Insulin Glargine (Insulin Glargine,Hum.Rec.Anlog 100 Unit/Ml 10 Ml Vial) 10 unit SUBCUT DAILY [facility] Last Admin: 09/10/22 08:02 Dose: 10 unit Documented By: MICKEY Insulin Human Lispro (Insulin Lispro 100 Unit/Ml 3 Ml Vial) 0 unit SUBCUT QIDACHS [facility]; Protocol Last Admin: 09/10/22 11:39 Dose: 2 unit Documented By: MICKEY Melatonin (Melatonin 3 Mg Tablet) 6 mg PO BEDTIME PRN PRN Reason: Insomnia Ondansetron HCl (Ondansetron Hcl 4 Mg/2 Ml Vial) 4 mg IVPUSH Q8H PRN PRN Reason: Nausea and Vomiting Pharmacy Consult (Consult Rx Perform Med Rec) 1 each MISCELLANE ONCE PRN PRN Reason: Consult order Sodium Chloride (0.9 % Sodium Chloride Flush 3 Ml Syringe) 3 ml IVFLUSH QSHIFT [facility] Last Admin: 09/10/22 08:02 Dose: 3 ml Documented By: MICKEY Vitamin D (Cholecalciferol (Vitamin D3) 25 Mcg Tablet) 50 mcg PO DAILY [facility] Last Admin: 09/10/22 08:02 Dose: 50 mcg Documented By: MICKEY Labs 09/10/22 06:30 09/10/22 06:30 Labs: Laboratory Results - last 24 hr 09/09/22 09/09/22 09/10/22 16:40 20:04 06:30 MCV MCH MCHC RDW Plt Count MPV Immature Gran % (Auto) Neut % (Auto) Lymph % (Auto) [place] % (Auto) Eos % (Auto) Baso % (Auto) Lymph # (Auto) [place] # (Auto) Eos # (Auto) Baso # (Auto) Abs Immat Gran (auto) Absolute Neuts (auto) Absolute Nucleated RBC Nucleated RBC % (auto) Anion Gap 19 Estim Creat Clear Calc 13.7 Estimated GFR 15 POC Glucose 235 H 167 H Random Glucose 102 Calcium 8.4 09/10/22 09/10/22 09/10/22 06:30 07:37 11:26 MCV 92.1 MCH 31.0 MCHC 33.6 RDW 16.1 H Plt Count 189 MPV 9.0 L Immature Gran % (Auto) 0.5 H Neut % (Auto) 80.6 H Lymph % (Auto) 13.3 L [place] % (Auto) 4.9 Eos % (Auto) 0.4 Baso % (Auto) 0.3 Lymph # (Auto) 1.4 [place] # (Auto) 0.5 Eos # (Auto) 0.0 Baso # (Auto) 0.0 Abs Immat Gran (auto) 0.05 H Absolute Neuts (auto) 8.7 H Absolute Nucleated RBC 0.000 Nucleated RBC % (auto) 0.0 Anion Gap Estim Creat Clear Calc Estimated GFR POC Glucose 103 176 H Random Glucose Calcium Assessment and Plan (1) Acute respiratory failure with hypoxia: Status: Acute (2) Community acquired pneumonia: Status: Acute (3) ESRD (end stage renal disease): Status: Acute Plan d#16 67 year-old male with ESRD on hemodialysis, coronary artery disease with ischemic cardiomyopathy and congestive heart failure with reduced ejection fraction, insulin-dependent diabetes mellitus, paroxysmal atrial fibrillation on Eliquis, and mood disorder who presented to the emergency department for evaluation of dyspnea and was admitted for left lower lobe PNA # acute hypoxic resp failure due to CAP - resolved, no longer hypoxic, completed ABX - not bacteremic, had coag-neg Staph in 2/2 sets which was attributed to contamination # elevated LFTs - largely resolved, HIDA negative, no surgical indication, probably had some degree of hepatitis from the pneumonia # toxic metabolic encephalopathy - slowly improving; likely new baseline - will need placement; family elusive # hypoNa- due to poor free water clearance - improved after HD, HD TuTuSa -Add fluid restrictions -Appreciate nephro input # hyperK - resolved p HD # ESRD on hemodialysis - HD TuThSa # DM2 - basal-bolus insulin # paroxysmal AF - continue carvedilol - continue amiodarone - continue apixaban # chronic HFpEF - continue carvedilol, bumetanide # mood disorder - continue fluoxetine # VTE ppx: apixaban # dispo: STR pending placement In my clinical judgment, the patient requires continued inpatient hospitalization for the following reasons: safe placement Time Spent With Patient Time: Total time managing care of this patient today ____ minutes. Quality Stroke Does the patient have a stroke diagnosis?: No VTE Prior VTE?: No VTE Risk Level:: Medical - moderate - high VTE Device Contraindication: Treatment Not Indicated VTE Drug Contraindication: N/A - Med Ordered
--- NOTE | 2022-09-10 15:49 | MHC.CM.PN ---
HYPONATREMIC TODAY NO PLAN FOR DC SNF SEARCH CONTINUES [facility] HAS NOT RESPONDED SINCE 09/08
[2022-09-10 15:50] VITALS: BP 126/79; PULSE 60; RESP 18; TEMP 36; O2SAT 97
[2022-09-10 16:30] LABS: Glucose, Whole Blood 141 mg/dL (60-115)
--- NOTE | 2022-09-10 17:31 | P.PNNP_ITS ---
Subjective Subjective Date of Service: 09/10/22 Interval history: Seen and examined, events noted Physical Exam Vital Signs: Vital Signs: Last Vital Signs Temp 96.8 F 09/10/22 15:50 Pulse 60 09/10/22 15:50 Resp 18 09/10/22 15:50 BP 126/79 09/10/22 15:50 Pulse Ox 97 09/10/22 15:50 O2 Del Method 09/10/22 15:50 O2 Flow Rate 2.0 08/27/22 07:58 Oxygen Flow Rate 2 08/25/22 17:41 BMI result Body Mass Index 22.6 Const: Other: Awake alert intermittently confused General: cooperative, healthy appearing, comfortable, no acute distress, alert and awake Nutritional Appearance: average body habitus and thin Orientation/consciousness: oriented to person, oriented to place and patient oriented x3 HEENT: Head: Yes normal to inspection, Yes normocephalic and Yes atraumatic Face and sinus: Yes normal facial exam Mouth: Normal oral and palatal mucosa present Teeth and gingiva: dentition normal Eyes: General: appearance normal, both eyes and all related structures Eyelids: Yes eyelids normal Conjunctivae: conjunctivae normal Sclerae: sclerae normal Corneas: corneas normal Pupils: Equal, round and reactive pupils present EOM: EOMs intact bilaterally Neck: Neck: Yes supple Chest: Other: HD catheter present Resp: Other: Diminished left base with scant crackles Effort & Inspection: normal respiratory effort, able to speak in complete sentences, no audible wheezes, not labored, no respiratory distress and no use of accessory muscles Auscultation: clear to auscultation bilaterally and diminished lung sounds Cardio: Other: No S4; positive S1-S2; no S3 murmurs rubs gallops Rate: regular rate Rhythm: regular rhythm Heart sounds: S1 normal heart sound present and S2 normal heart sound present GI: Other: Soft nontender nondistended normoactive bowel sounds Inspection: No distended Palpation (GI): Soft to palpation, nontender, no guarding and not rigid : General: Yes no CVA tenderness Back/Spine/Pelvis: Back: no CVA tenderness Skin: General skin exam: no rashes or lesions noted and elasticity normal Lesions: no lesions Rashes: no rashes Neuro: Other: face symmetrical, tongue midline, hand grasp equal, able to move all extremities General: oriented to person, oriented to place, patient oriented x3 and moves all extremities Cranial nerves: Yes Equal, round and reactive pupils present and Yes Midline tongue present Extrem: Other: No edema bilaterally General: Yes normal to inspection, Yes full ROM and Yes no pedal edema Psych: Appearance: grossly normal Objective Data Labs 09/10/22 06:30 09/10/22 06:30 Labs: Laboratory Results - last 24 hr 09/09/22 09/10/22 09/10/22 20:04 06:30 06:30 WBC 10.8 RBC 3.68 L Hgb 11.4 L Hct 33.9 L MCV 92.1 MCH 31.0 MCHC 33.6 RDW 16.1 H Plt Count 189 MPV 9.0 L Immature Gran % (Auto) 0.5 H Neut % (Auto) 80.6 H Lymph % (Auto) 13.3 L [place] % (Auto) 4.9 Eos % (Auto) 0.4 Baso % (Auto) 0.3 Lymph # (Auto) 1.4 [place] # (Auto) 0.5 Eos # (Auto) 0.0 Baso # (Auto) 0.0 Abs Immat Gran (auto) 0.05 H Absolute Neuts (auto) 8.7 H Absolute Nucleated RBC 0.000 Nucleated RBC % (auto) 0.0 Sodium 126 L Potassium 4.5 Chloride 97 Carbon Dioxide 15 L Anion Gap 19 BUN 35 H Creatinine 3.92 H Estim Creat Clear Calc 13.7 Estimated GFR 15 POC Glucose 167 H Random Glucose 102 Calcium 8.4 09/10/22 09/10/22 09/10/22 07:37 11:26 16:21 WBC RBC Hgb Hct MCV MCH MCHC RDW Plt Count MPV Immature Gran % (Auto) Neut % (Auto) Lymph % (Auto) [place] % (Auto) Eos % (Auto) Baso % (Auto) Lymph # (Auto) [place] # (Auto) Eos # (Auto) Baso # (Auto) Abs Immat Gran (auto) Absolute Neuts (auto) Absolute Nucleated RBC Nucleated RBC % (auto) Sodium Potassium Chloride Carbon Dioxide Anion Gap BUN Creatinine Estim Creat Clear Calc Estimated GFR POC Glucose 103 176 H 141 H Random Glucose Calcium Microbiology Microbiology Results: Microbiology 08/27/22 08:02 Blood - Venous Blood Culture - Final No growth after 5 days. 08/27/22 07:55 Blood - Venous Blood Culture - Final No growth after 5 days. 08/25/22 19:40 Blood - Venous Blood Culture - Final Staphylococcus epidermidis 08/25/22 19:40 Blood - Venous Blood Culture - Final Staphylococcus epidermidis Procedures Date of Service Date of Service: 09/10/22 Assessment & Plan Assessment and plan (1) ESRD (end stage renal disease): Status: Acute (2) HFrEF (heart failure with reduced ejection fraction): Status: Acute Assessment and Plan: euvolemic now (3) Bacteremia due to Staphylococcus: Status: Acute Assessment and Plan: - ESRD: TTS: currently on HD - Pnuemonia: resolved - Staph epi ( 08/25) and subsequent Bld Cult neg -HypoNa: restrict PO fluids REC: restrict PO fluids 1200/24 hrs; cont hD TTS; d/c planning; track HB and hold EPO for now will follow w team Time Spent With Patient Time: Total time managing care of this patient today ____ minutes. Progress Note: Quality Stroke Does the patient have a stroke diagnosis?: No
[2022-09-10 20:00] VITALS: BP 135/87; PULSE 63; RESP 18; TEMP 36.6; O2SAT 98
[2022-09-10 21:14] LABS: Glucose, Whole Blood 145 mg/dL (60-115)
[2022-09-11 03:42] VITALS: BP 152/82; PULSE 62; RESP 18; TEMP 36.6; O2SAT 97
[2022-09-11 06:13] LABS: MANUAL DIFF FLAG NO
[2022-09-11 06:26] LABS: Basophils Percent Auto 0.4 % (0-2); Eosinophils Absolute Auto 0.1 X10*3/uL (0.0-0.4); Eosinophils Percent Auto 0.6 % (0-4); Hematocrit 31.9 % (42.0-52.0); Hemoglobin 11.2 g/dl (14.0-18.0); Imm Gran Abs Auto 0.03 X10*3/uL (0.00-0.03); Imm Gran Pct Auto 0.4 % (0.0-0.4); Lymphocytes Absolute Auto 1.7 X10*3/uL (1.2-4.9); Lymphocytes Percent Auto 20.3 % (20-40); Mean Corpuscular HGB Conc 35.1 g/dl (31.0-36.0); Mean Corpuscular Hemoglobin 32.2 pg (27.0-33.0); Mean Corpuscular Volume 91.7 fL (80.0-98.0); Mean Platelet Volume 9.3 fL (9.4-12.4); Monocytes Absolute Auto 0.4 X10*3/uL (0.1-1.2); Monocytes Percent Auto 4.8 % (2-11); Neutrophils Absolute Auto 6.1 x10*3/uL (2.0-8.3); Neutrophils Percent Auto 73.5 % (45-73); Platelet Count 185 X10*3/uL (160-400); Red Blood Count 3.48 X10*6/uL (4.60-5.80); Red Cell Distribution Width 15.8 % (11.0-16.0); White Blood Count 8.3 X10*3/uL (4.8-10.8)
[2022-09-11 06:44] LABS: Anion Gap 17 (12-20); Blood Urea Nitrogen 53 mg/dL (9-16); Calcium 8.1 mg/dL (8.4-10.2); Carbon Dioxide 17 mmol/L (22-29); Chloride 94 mmol/L (96-108); Creatinine Clr Calc Pharmacy 10.5; Estimated Glomerular Filt Rate 11; Glucose Random 101 mg/dL (60-115); Potassium 4.7 mmol/L (3.3-5.1); Sodium 123 mmol/L (135-145)
[2022-09-11 07:30] LABS: Glucose, Whole Blood 93 mg/dL (60-115)
[2022-09-11 07:50] VITALS: BP 138/79; PULSE 61; RESP 17; TEMP 36.4; O2SAT 95
[2022-09-11] MEDS: 0.9 % Sodium Chloride Flush 3 ML SYRINGE IVFLUSH ×3 (08:18→20:14)
[2022-09-11] MEDS: Insulin Glargine,Hum.rec.anlog 100 UNIT/ML 10 ML VIAL 10 UNIT SUBCUT (08:18)
--- NOTE | 2022-09-11 11:26 | P.PNIM_ITS ---
Subjective Subjective Date of Service: 09/11/22 Interval History: No complaints. HD today, awaiting placement Review of Systems Review of Systems: Yes all other systems are reviewed and are negative Physical Exam Vital Signs: Vital Signs: Last Vital Signs Temp 97.5 F 09/11/22 07:50 Pulse 61 09/11/22 07:50 Resp 17 09/11/22 07:50 BP 138/79 09/11/22 07:50 Pulse Ox 95 09/11/22 07:50 O2 Del Method 09/11/22 07:50 O2 Flow Rate 2.0 08/27/22 07:58 Oxygen Flow Rate 2 08/25/22 17:41 BMI result Body Mass Index 22.6 Constitutional - Awake and Alert, No apparent distress Eyes - PERRLA, EOMI Cardiovascular - S1S2, RRR, No edema Respiratory - Normal lung expansion, Normal respiratory effort, No respiratory distress, CTA bilaterally Gastrointestinal - NT / ND; +BS; No rebound or guarding Extremities - no calf tenderness bilaterally, no swelling Skin - Warm/Dry Neurological - Alert & oriented x3 Psychological - Appropriate affect Objective Data Active Medications Acetaminophen (Acetaminophen 325 Mg Tablet) 650 mg PO Q6H PRN PRN Reason: Pain, Mild (Pain Scale 1-3) Amiodarone HCl (Amiodarone Hcl 200 Mg Tablet) 200 mg PO DAILY [facility] Last Admin: 09/10/22 08:02 Dose: 200 mg Documented By: MICKEY Apixaban (Apixaban 2.5 Mg Tablet) 2.5 mg PO BID [facility] Last Admin: 09/10/22 20:15 Dose: 2.5 mg Documented By: RAE Atorvastatin Calcium (Atorvastatin Calcium 80 Mg Tablet) 80 mg PO BEDTIME [facility] Last Admin: 08/25/22 21:41 Dose: 80 mg Documented By: MADDENKiesha Bumetanide (Bumetanide 1 Mg Tablet) 1 mg PO BIDWM [facility]; Protocol Last Admin: 09/10/22 17:41 Dose: 1 mg Documented By: MICKEY Carvedilol (Carvedilol 3.125 Mg Tablet) 3.125 mg PO BID [facility]; Protocol Last Admin: 09/10/22 20:14 Dose: 3.125 mg Documented By: RAE Dextrose (Dextrose 50 % 25 Gm/50 Ml Vial) 25 gm IVPUSH Q15M PRN; Protocol PRN Reason: per Hypoglycemia Standing Ord. Fluoxetine HCl (Fluoxetine Hcl 20 Mg Capsule) 20 mg PO DAILY [facility] Last Admin: 09/10/22 08:02 Dose: 20 mg Documented By: MICKEY Glucose (Glucose Gel 15 Gm Gel..Gram.) 15 gm PO Q15M PRN; Protocol PRN Reason: per Hypoglycemia Standing Ord. Insulin Glargine (Insulin Glargine,Hum.Rec.Anlog 100 Unit/Ml 10 Ml Vial) 10 unit SUBCUT DAILY [facility] Last Admin: 09/11/22 08:18 Dose: 10 unit Documented By: MICKEY Insulin Human Lispro (Insulin Lispro 100 Unit/Ml 3 Ml Vial) 0 unit SUBCUT QIDACHS [facility]; Protocol Last Admin: 09/11/22 09:46 Dose: Not Given Documented By: MICKEY Non-Admin Reason: No Insulin Coverage Melatonin (Melatonin 3 Mg Tablet) 6 mg PO BEDTIME PRN PRN Reason: Insomnia Ondansetron HCl (Ondansetron Hcl 4 Mg/2 Ml Vial) 4 mg IVPUSH Q8H PRN PRN Reason: Nausea and Vomiting Pharmacy Consult (Consult Rx Perform Med Rec) 1 each MISCELLANE ONCE PRN PRN Reason: Consult order Sodium Chloride (0.9 % Sodium Chloride Flush 3 Ml Syringe) 3 ml IVFLUSH QSHIFT [facility] Last Admin: 09/11/22 08:18 Dose: 3 ml Documented By: MICKEY Vitamin D (Cholecalciferol (Vitamin D3) 25 Mcg Tablet) 50 mcg PO DAILY [facility] Last Admin: 09/10/22 08:02 Dose: 50 mcg Documented By: MICKEY Labs 09/11/22 06:02 09/11/22 06:02 Labs: Laboratory Results - last 24 hr 09/10/22 09/10/22 09/10/22 11:26 16:21 20:41 MCV MCH MCHC RDW Plt Count MPV Immature Gran % (Auto) Neut % (Auto) Lymph % (Auto) [place] % (Auto) Eos % (Auto) Baso % (Auto) Lymph # (Auto) [place] # (Auto) Eos # (Auto) Baso # (Auto) Abs Immat Gran (auto) Absolute Neuts (auto) Absolute Nucleated RBC Nucleated RBC % (auto) Anion Gap Estim Creat Clear Calc Estimated GFR POC Glucose 176 H 141 H 145 H Random Glucose Calcium 09/11/22 09/11/22 09/11/22 06:02 06:02 07:24 MCV 91.7 MCH 32.2 MCHC 35.1 RDW 15.8 Plt Count 185 MPV 9.3 L Immature Gran % (Auto) 0.4 Neut % (Auto) 73.5 H Lymph % (Auto) 20.3 [place] % (Auto) 4.8 Eos % (Auto) 0.6 Baso % (Auto) 0.4 Lymph # (Auto) 1.7 [place] # (Auto) 0.4 Eos # (Auto) 0.1 Baso # (Auto) 0.0 Abs Immat Gran (auto) 0.03 Absolute Neuts (auto) 6.1 Absolute Nucleated RBC 0.000 Nucleated RBC % (auto) 0.0 Anion Gap 17 Estim Creat Clear Calc 10.5 Estimated GFR 11 POC Glucose 93 Random Glucose 101 Calcium 8.1 L Assessment and Plan (1) Acute respiratory failure with hypoxia: Status: Acute (2) Community acquired pneumonia: Status: Acute (3) ESRD (end stage renal disease): Status: Acute Plan d#17 67 year-old male with ESRD on hemodialysis, coronary artery disease with ischem ic cardiomyopathy and congestive heart failure with reduced ejection fraction, insulin-dependent diabetes mellitus, paroxysmal atrial fibrillation on Eliquis, and mood disorder who presented to the emergency department for evaluation of dyspnea and was admitted for left lower lobe PNA # acute hypoxic resp failure due to CAP - resolved, no longer hypoxic, completed ABX - not bacteremic, had coag-neg Staph in 2/2 sets which was attributed to contamination # elevated LFTs - largely resolved, HIDA negative, no surgical indication, probably had some degree of hepatitis from the pneumonia # toxic metabolic encephalopathy - slowly improving; likely new baseline - will need placement; family elusive # hypoNa- due to poor free water clearance - improved after HD, HD TuTuSa -fluid restrictions 1.2L -Appreciate nephro input # hyperK - resolved p HD # ESRD on hemodialysis - HD TuThSa # DM2 - basal-bolus insulin # paroxysmal AF - continue carvedilol - continue amiodarone - continue apixaban # chronic HFpEF - continue carvedilol, bumetanide # mood disorder - continue fluoxetine # VTE ppx: apixaban # dispo: STR pending placement In my clinical judgment, the patient requires continued inpatient hospitalization for the following reasons: safe placement Time Spent With Patient Time: Total time managing care of this patient today ____ minutes. Quality Stroke Does the patient have a stroke diagnosis?: No VTE Prior VTE?: No VTE Risk Level:: Medical - moderate - high VTE Device Contraindication: Treatment Not Indicated VTE Drug Contraindication: N/A - Med Ordered
--- NOTE | 2022-09-11 13:57 | PM.PNNEP ---
Subjective Subjective Date of Service: 09/11/22 Interval history: Seen and examined, events noted, currently on HD Physical Exam Vital Signs: Vital Signs: Last Vital Signs Temp 97.5 F 09/11/22 07:50 Pulse 61 09/11/22 07:50 Resp 17 09/11/22 07:50 BP 138/79 09/11/22 07:50 Pulse Ox 95 09/11/22 07:50 O2 Del Method 09/11/22 07:50 O2 Flow Rate 2.0 08/27/22 07:58 Oxygen Flow Rate 2 08/25/22 17:41 BMI result Body Mass Index 22.6 Const: Other: Awake alert intermittently confused General: cooperative, healthy appearing, comfortable, no acute distress, alert and awake Nutritional Appearance: average body habitus and thin Orientation/consciousness: oriented to person, oriented to place and patient oriented x3 HEENT: Head: Yes normal to inspection, Yes normocephalic and Yes atraumatic Face and sinus: Yes normal facial exam Mouth: Normal oral and palatal mucosa present Teeth and gingiva: dentition normal Eyes: General: appearance normal, both eyes and all related structures Eyelids: Yes eyelids normal Conjunctivae: conjunctivae normal Sclerae: sclerae normal Corneas: corneas normal Pupils: Equal, round and reactive pupils present EOM: EOMs intact bilaterally Neck: Neck: Yes supple Chest: Other: HD catheter present Resp: Other: Diminished left base with scant crackles Effort & Inspection: normal respiratory effort, able to speak in complete sentences, no audible wheezes, not labored, no respiratory distress and no use of accessory muscles Auscultation: clear to auscultation bilaterally and diminished lung sounds Cardio: Other: No S4; positive S1-S2; no S3 murmurs rubs gallops Rate: regular rate Rhythm: regular rhythm Heart sounds: S1 normal heart sound present and S2 normal heart sound present GI: Other: Soft nontender nondistended normoactive bowel sounds Inspection: No distended Palpation (GI): Soft to palpation, nontender, no guarding and not rigid : General: Yes no CVA tenderness Back/Spine/Pelvis: Back: no CVA tenderness Skin: General skin exam: no rashes or lesions noted and elasticity normal Lesions: no lesions Rashes: no rashes Neuro: Other: face symmetrical, tongue midline, hand grasp equal, able to move all extremities General: oriented to person, oriented to place, patient oriented x3 and moves all extremities Cranial nerves: Yes Equal, round and reactive pupils present and Yes Midline tongue present Extrem: Other: No edema bilaterally General: Yes normal to inspection, Yes full ROM and Yes no pedal edema Psych: Appearance: grossly normal Objective Data Labs 09/11/22 06:02 09/11/22 06:02 Labs: Laboratory Results - last 24 hr 09/10/22 09/10/22 09/11/22 16:21 20:41 06:02 WBC 8.3 RBC 3.48 L Hgb 11.2 L Hct 31.9 L MCV 91.7 MCH 32.2 MCHC 35.1 RDW 15.8 Plt Count 185 MPV 9.3 L Immature Gran % (Auto) 0.4 Neut % (Auto) 73.5 H Lymph % (Auto) 20.3 [place] % (Auto) 4.8 Eos % (Auto) 0.6 Baso % (Auto) 0.4 Lymph # (Auto) 1.7 [place] # (Auto) 0.4 Eos # (Auto) 0.1 Baso # (Auto) 0.0 Abs Immat Gran (auto) 0.03 Absolute Neuts (auto) 6.1 Absolute Nucleated RBC 0.000 Nucleated RBC % (auto) 0.0 Sodium Potassium Chloride Carbon Dioxide Anion Gap BUN Creatinine Estim Creat Clear Calc Estimated GFR POC Glucose 141 H 145 H Random Glucose Calcium 09/11/22 09/11/22 06:02 07:24 WBC RBC Hgb Hct MCV MCH MCHC RDW Plt Count MPV Immature Gran % (Auto) Neut % (Auto) Lymph % (Auto) [place] % (Auto) Eos % (Auto) Baso % (Auto) Lymph # (Auto) [place] # (Auto) Eos # (Auto) Baso # (Auto) Abs Immat Gran (auto) Absolute Neuts (auto) Absolute Nucleated RBC Nucleated RBC % (auto) Sodium 123 L Potassium 4.7 Chloride 94 L Carbon Dioxide 17 L Anion Gap 17 BUN 53 H Creatinine 5.12 H* Estim Creat Clear Calc 10.5 Estimated GFR 11 POC Glucose 93 Random Glucose 101 Calcium 8.1 L Microbiology Microbiology Results: Microbiology 08/27/22 08:02 Blood - Venous Blood Culture - Final No growth after 5 days. 08/27/22 07:55 Blood - Venous Blood Culture - Final No growth after 5 days. 02/15/23 19:40 Blood - Venous Blood Culture - Final Staphylococcus epidermidis 08/25/22 19:40 Blood - Venous Blood Culture - Final Staphylococcus epidermidis Procedures Date of Service Date of Service: 09/11/22 Assessment & Plan Assessment and plan (1) ESRD (end stage renal disease): Status: Acute (2) HFrEF (heart failure with reduced ejection fraction): Status: Acute Assessment and Plan: euvolemic now (3) Bacteremia due to Staphylococcus: Status: Acute Assessment and Plan: - ESRD: TTS: currently on HD - Pnuemonia: resolved - Staph epi ( 08/25) and subsequent Bld Cult neg -HypoNa: restrict PO fluids REC: restrict PO fluids 1200/24 hrs; cont hD TTS; d/c planning; track HB and hold EPO for now will follow w team Time Spent With Patient Time: Total time managing care of this patient today ____ minutes. Progress Note: Quality Stroke Does the patient have a stroke diagnosis?: No
[2022-09-11 14:00] LABS: Glucose, Whole Blood 89 mg/dL (60-115)
[2022-09-11] MEDS: carvediloL 3.125 MG TABLET PO ×2 (14:47→20:13)
[2022-09-11] MEDS: Cholecalciferol (Vitamin D3) 25 MCG TABLET 50 MCG PO (14:50)
[2022-09-11] MEDS: FLUoxetine HCl 20 MG CAPSULE PO (14:50)
[2022-09-11] MEDS: Apixaban 2.5 MG TABLET PO ×2 (14:51→20:13)
[2022-09-11] MEDS: Amiodarone HCL 200 MG TABLET PO (14:51)
[2022-09-11 15:21] VITALS: BP 113/64; PULSE 58; RESP 17; TEMP 36.7; O2SAT 95
[2022-09-11 16:24] LABS: Glucose, Whole Blood 135 mg/dL (60-115)
[2022-09-11] MEDS: Bumetanide 1 MG TABLET PO (17:24)
[2022-09-11 19:56] VITALS: BP 133/78; PULSE 61; RESP 20; TEMP 36.8; O2SAT 98
[2022-09-11 20:23] LABS: Glucose, Whole Blood 91 mg/dL (60-115)
[2022-09-12 03:00] VITALS: BP 133/73; PULSE 65; RESP 18; TEMP 36.2; O2SAT 97
[2022-09-12 07:33] LABS: Glucose, Whole Blood 138 mg/dL (60-115)
[2022-09-12 07:50] VITALS: BP 113/67; PULSE 57; RESP 18; TEMP 36.3; O2SAT 96
[2022-09-12] MEDS: carvediloL 3.125 MG TABLET PO ×2 (08:51→22:07)
[2022-09-12] MEDS: FLUoxetine HCl 20 MG CAPSULE PO (08:51)
[2022-09-12] MEDS: Insulin Glargine,Hum.rec.anlog 100 UNIT/ML 10 ML VIAL 10 UNIT SUBCUT (08:51)
[2022-09-12] MEDS: Apixaban 2.5 MG TABLET PO ×2 (08:52→22:07)
[2022-09-12] MEDS: Amiodarone HCL 200 MG TABLET PO (08:52)
[2022-09-12] MEDS: Cholecalciferol (Vitamin D3) 25 MCG TABLET 50 MCG PO (08:52)
[2022-09-12] MEDS: Bumetanide 1 MG TABLET PO ×2 (08:52→17:57)
[2022-09-12] MEDS: 0.9 % Sodium Chloride Flush 3 ML SYRINGE IVFLUSH ×3 (08:52→22:11)
[2022-09-12 10:09] LABS: Anion Gap 17 (12-20); Blood Urea Nitrogen 46 mg/dL (9-16); Calcium 8.3 mg/dL (8.4-10.2); Carbon Dioxide 16 mmol/L (22-29); Chloride 99 mmol/L (96-108); Creatinine Clr Calc Pharmacy 12.3; Estimated Glomerular Filt Rate 14; Glucose Random 157 mg/dL (60-115); Potassium 4.7 mmol/L (3.3-5.1); Sodium 127 mmol/L (135-145)
[2022-09-12 11:21] LABS: Glucose, Whole Blood 209 mg/dL (60-115)
--- NOTE | 2022-09-12 11:24 | HO.PM.IMPN ---
Subjective Subjective Date of Service: 09/12/22 Interval History: Seen with welsh interpretor. No complaints. HD today, awaiting placement Review of Systems Review of Systems: Yes all other systems are reviewed and are negative Physical Exam Vital Signs: Vital Signs: Last Vital Signs Temp 97.4 F 09/12/22 07:50 Pulse 57 09/12/22 07:50 Resp 18 09/12/22 07:50 BP 113/67 09/12/22 07:50 Pulse Ox 96 09/12/22 07:50 O2 Del Method 09/12/22 07:50 O2 Flow Rate 2.0 08/27/22 07:58 Oxygen Flow Rate 2 08/25/22 17:41 BMI result Body Mass Index 22.6 Constitutional - Awake and Alert, No apparent distress Eyes - PERRLA, EOMI Cardiovascular - S1S2, RRR, No edema Respiratory - Normal lung expansion, Normal respiratory effort, No respiratory distress, CTA bilaterally Gastrointestinal - NT / ND; +BS; No rebound or guarding Extremities - no calf tenderness bilaterally, no swelling Skin - Warm/Dry Neurological - Alert & oriented x3 Psychological - Appropriate affect Objective Data Active Medications Acetaminophen (Acetaminophen 325 Mg Tablet) 650 mg PO Q6H PRN PRN Reason: Pain, Mild (Pain Scale 1-3) Amiodarone HCl (Amiodarone Hcl 200 Mg Tablet) 200 mg PO DAILY [facility] Last Admin: 09/12/22 08:52 Dose: 200 mg Documented By: FORREST Apixaban (Apixaban 2.5 Mg Tablet) 2.5 mg PO BID [facility] Last Admin: 09/12/22 08:52 Dose: 2.5 mg Documented By: FORREST Atorvastatin Calcium (Atorvastatin Calcium 80 Mg Tablet) 80 mg PO BEDTIME [facility] Last Admin: 08/25/22 21:41 Dose: 80 mg Documented By: MADDENL Bumetanide (Bumetanide 1 Mg Tablet) 1 mg PO BIDWM [facility]; Protocol Last Admin: 09/12/22 08:52 Dose: 1 mg Documented By: KAMRANEMA Carvedilol (Carvedilol 3.125 Mg Tablet) 3.125 mg PO BID [facility]; Protocol Last Admin: 09/12/22 08:51 Dose: 3.125 mg Documented By: KAMRANEMA Dextrose (Dextrose 50 % 25 Gm/50 Ml Vial) 25 gm IVPUSH Q15M PRN; Protocol PRN Reason: per Hypoglycemia Standing Ord. Fluoxetine HCl (Fluoxetine Hcl 20 Mg Capsule) 20 mg PO DAILY [facility] Last Admin: 09/12/22 08:51 Dose: 20 mg Documented By: FORREST Glucose (Glucose Gel 15 Gm Gel..Gram.) 15 gm PO Q15M PRN; Protocol PRN Reason: per Hypoglycemia Standing Ord. Insulin Glargine (Insulin Glargine,Hum.Rec.Anlog 100 Unit/Ml 10 Ml Vial) 10 unit SUBCUT DAILY [facility] Last Admin: 09/12/22 08:51 Dose: 10 unit Documented By: FORREST Insulin Human Lispro (Insulin Lispro 100 Unit/Ml 3 Ml Vial) 0 unit SUBCUT QIDACHS [facility]; Protocol Last Admin: 09/12/22 07:42 Dose: Not Given Documented By: FORREST Non-Admin Reason: No Insulin Coverage Melatonin (Melatonin 3 Mg Tablet) 6 mg PO BEDTIME PRN PRN Reason: Insomnia Ondansetron HCl (Ondansetron Hcl 4 Mg/2 Ml Vial) 4 mg IVPUSH Q8H PRN PRN Reason: Nausea and Vomiting Pharmacy Consult (Consult Rx Perform Med Rec) 1 each MISCELLANE ONCE PRN PRN Reason: Consult order Sodium Chloride (0.9 % Sodium Chloride Flush 3 Ml Syringe) 3 ml IVFLUSH QSHIFT [facility] Last Admin: 09/12/22 08:52 Dose: 3 ml Documented By: FORREST Vitamin D (Cholecalciferol (Vitamin D3) 25 Mcg Tablet) 50 mcg PO DAILY [facility] Last Admin: 09/12/22 08:52 Dose: 50 mcg Documented By: FORREST Labs 09/11/22 06:02 09/12/22 09:35 Labs: Laboratory Results - last 24 hr 09/11/22 09/11/22 09/11/22 13:55 16:11 20:18 Anion Gap Estim Creat Clear Calc Estimated GFR POC Glucose 89 135 H 91 Random Glucose Calcium 09/12/22 09/12/22 09/12/22 07:24 09:35 11:14 Anion Gap 17 Estim Creat Clear Calc 12.3 Estimated GFR 14 POC Glucose 138 H 209 H Random Glucose 157 H Calcium 8.3 L Assessment and Plan (1) Acute respiratory failure with hypoxia: Status: Acute (2) Community acquired pneumonia: Status: Acute (3) ESRD (end stage renal disease): Status: Acute Plan d#18 67 year-old male with ESRD on hemodialysis, coronary artery disease with ischemic cardiomyopathy and congestive heart failure with reduced ejection fraction, insulin-dependent diabetes mellitus, paroxysmal atrial fibrillation on Eliquis, and mood disorder who presented to the emergency department for evaluation of dyspnea and was admitted for left lower lobe PNA # acute hypoxic resp failure due to CAP - resolved, no longer hypoxic, completed ABX - not bacteremic, had coag-neg Staph in 2/2 sets which was attributed to contamination # elevated LFTs - largely resolved, HIDA negative, no surgical indication, probably had some degree of hepatitis from the pneumonia # toxic metabolic encephalopathy - slowly improving; likely new baseline - will need placement; family elusive # hypoNa- due to poor free water clearance - improved after HD, HD TuTuSa -fluid restrictions 1.2L -Appreciate nephro input # hyperK - resolved p HD # ESRD on hemodialysis - HD TuThSa # DM2 - basal-bolus insulin # paroxysmal AF - continue carvedilol - continue amiodarone - continue apixaban # chronic HFpEF - continue carvedilol, bumetanide # mood disorder - continue fluoxetine # VTE ppx: apixaban # dispo: STR pending placement In my clinical judgment, the patient requires continued inpatient hospitalization for the following reasons: safe placement Time Spent With Patient Time: Total time managing care of this patient today ____ minutes. Quality Stroke Does the patient have a stroke diagnosis?: No VTE Prior VTE?: No VTE Risk Level:: Medical - moderate - high VTE Device Contraindication: Treatment Not Indicated VTE Drug Contraindication: N/A - Med Ordered
[2022-09-12] MEDS: Insulin Lispro 100 UNIT/ML 3 ML VIAL SUBCUT ×2 (12:23→22:06)
[2022-09-12 15:29] VITALS: BP 104/61; PULSE 59; RESP 18; TEMP 36.8; O2SAT 92
[2022-09-12 16:31] LABS: Glucose, Whole Blood 116 mg/dL (60-115)
--- NOTE | 2022-09-12 17:47 | PM.PNNEP ---
Subjective Subjective Date of Service: 09/12/22 Interval history: Seen and examined, events noted Physical Exam Vital Signs: Vital Signs: Last Vital Signs Temp 98.2 F 09/12/22 15:29 Pulse 59 09/12/22 15:29 Resp 18 09/12/22 15:29 BP 104/61 09/12/22 15:29 Pulse Ox 92 09/12/22 15:29 O2 Del Method 09/12/22 15:29 O2 Flow Rate 2.0 08/27/22 07:58 Oxygen Flow Rate 2 08/25/22 17:41 BMI result Body Mass Index 22.6 Const: Other: Awake alert intermittently confused General: cooperative, healthy appearing, comfortable, no acute distress, alert and awake Nutritional Appearance: average body habitus and thin Orientation/consciousness: oriented to person, oriented to place and patient oriented x3 HEENT: Head: Yes normal to inspection, Yes normocephalic and Yes atraumatic Face and sinus: Yes normal facial exam Mouth: Normal oral and palatal mucosa present Teeth and gingiva: dentition normal Eyes: General: appearance normal, both eyes and all related structures Eyelids: Yes eyelids normal Conjunctivae: conjunctivae normal Sclerae: sclerae normal Corneas: corneas normal Pupils: Equal, round and reactive pupils present EOM: EOMs intact bilaterally Neck: Neck: Yes supple Chest: Other: HD catheter present Resp: Other: Diminished left base with scant crackles Effort & Inspection: normal respiratory effort, able to speak in complete sentences, no audible wheezes, not labored, no respiratory distress and no use of accessory muscles Auscultation: clear to auscultation bilaterally and diminished lung sounds Cardio: Other: No S4; positive S1-S2; no S3 murmurs rubs gallops Rate: regular rate Rhythm: regular rhythm Heart sounds: S1 normal heart sound present and S2 normal heart sound present GI: Other: Soft nontender nondistended normoactive bowel sounds Inspection: No distended Palpation (GI): Soft to palpation, nontender, no guarding and not rigid : General: Yes no CVA tenderness Back/Spine/Pelvis: Back: no CVA tenderness Skin: General skin exam: no rashes or lesions noted and elasticity normal Lesions: no lesions Rashes: no rashes Neuro: Other: face symmetrical, tongue midline, hand grasp equal, able to move all extremities General: oriented to person, oriented to place, patient oriented x3 and moves all extremities Cranial nerves: Yes Equal, round and reactive pupils present and Yes Midline tongue present Extrem: Other: No edema bilaterally General: Yes normal to inspection, Yes full ROM and Yes no pedal edema Psych: Appearance: grossly normal Objective Data Labs 09/11/22 06:02 09/12/22 09:35 Labs: Laboratory Results - last 24 hr 09/11/22 09/12/22 09/12/22 20:18 07:24 09:35 Sodium 127 L Potassium 4.7 Chloride 99 Carbon Dioxide 16 L Anion Gap 17 BUN 46 H Creatinine 4.36 H* Estim Creat Clear Calc 12.3 Estimated GFR 14 POC Glucose 91 138 H Random Glucose 157 H Calcium 8.3 L 09/12/22 09/12/22 11:14 16:15 Sodium Potassium Chloride Carbon Dioxide Anion Gap BUN Creatinine Estim Creat Clear Calc Estimated GFR POC Glucose 209 H 116 H Random Glucose Calcium Microbiology Microbiology Results: Microbiology 08/27/22 08:02 Blood - Venous Blood Culture - Final No growth after 5 days. 08/27/22 07:55 Blood - Venous Blood Culture - Final No growth after 5 days. 08/25/22 19:40 Blood - Venous Blood Culture - Final Staphylococcus epidermidis 08/25/22 19:40 Blood - Venous Blood Culture - Final Staphylococcus epidermidis Procedures Date of Service Date of Service: 09/12/22 Assessment & Plan Assessment and plan (1) ESRD (end stage renal disease): Status: Acute (2) HFrEF (heart failure with reduced ejection fraction): Status: Acute Assessment and Plan: euvolemic now (3) Bacteremia due to Staphylococcus: Status: Acute Assessment and Plan: - ESRD: TTS: currently on HD - Pnuemonia: resolved - Staph epi ( 08/25) and subsequent Bld Cult neg -HypoNa: restrict PO fluids REC: cont to restrict PO fluids 1200/24 hrs; cont hD TTS; d/c planning; track HB and hold EPO for now will follow w team Time Spent With Patient Time: Total time managing care of this patient today ____ minutes. Progress Note: Quality Stroke Does the patient have a stroke diagnosis?: No
[2022-09-12 19:52] VITALS: BP 121/67; PULSE 63; RESP 14; TEMP 36.2; O2SAT 96
[2022-09-12 20:31] LABS: Glucose, Whole Blood 183 mg/dL (60-115)
[2022-09-13 04:00] VITALS: BP 150/84; PULSE 63; RESP 16; TEMP 36; O2SAT 98
[2022-09-13 07:20] VITALS: BP 139/78; PULSE 63; RESP 16; TEMP 36.1; O2SAT 99
[2022-09-13 07:36] LABS: Glucose, Whole Blood 113 mg/dL (60-115)
[2022-09-13] MEDS: Insulin Glargine,Hum.rec.anlog 100 UNIT/ML 10 ML VIAL 10 UNIT SUBCUT (09:02)
[2022-09-13] MEDS: carvediloL 3.125 MG TABLET PO ×2 (09:03→22:07)
[2022-09-13] MEDS: Apixaban 2.5 MG TABLET PO ×2 (09:03→22:07)
[2022-09-13] MEDS: Bumetanide 1 MG TABLET PO ×2 (09:03→16:43)
[2022-09-13] MEDS: Amiodarone HCL 200 MG TABLET PO (09:04)
[2022-09-13] MEDS: Cholecalciferol (Vitamin D3) 25 MCG TABLET 50 MCG PO (09:04)
[2022-09-13] MEDS: FLUoxetine HCl 20 MG CAPSULE PO (09:04)
[2022-09-13] MEDS: 0.9 % Sodium Chloride Flush 3 ML SYRINGE IVFLUSH ×3 (09:06→22:09)
[2022-09-13 11:34] LABS: Glucose, Whole Blood 168 mg/dL (60-115)
[2022-09-13] MEDS: Insulin Lispro 100 UNIT/ML 3 ML VIAL SUBCUT (12:17)
--- NOTE | 2022-09-13 12:35 | HO.PM.IMPN ---
Subjective Subjective Date of Service: 09/13/22 Interval History: no acute issues overnight Review of Systems Unable to obtain Physical Exam Vital Signs: Vital Signs: Last Vital Signs Temp 97.0 F 09/13/22 07:20 Pulse 63 09/13/22 07:20 Resp 16 09/13/22 07:20 BP 139/78 09/13/22 07:20 Pulse Ox 99 09/13/22 07:20 O2 Del Method 09/13/22 07:20 O2 Flow Rate 2.0 08/27/22 07:58 Oxygen Flow Rate 2 08/25/22 17:41 BMI result Body Mass Index 22.6 Const: Other: Awake alert intermittently confused Resp: Other: Diminished left base with scant crackles Cardio: Other: No S4; positive S1-S2; no S3 murmurs rubs gallops GI: Other: Soft nontender nondistended normoactive bowel sounds Extrem: Other: No edema bilaterally Objective Data Active Medications Acetaminophen (Acetaminophen 325 Mg Tablet) 650 mg PO Q6H PRN PRN Reason: Pain, Mild (Pain Scale 1-3) Amiodarone HCl (Amiodarone Hcl 200 Mg Tablet) 200 mg PO DAILY [facility] Last Admin: 09/13/22 09:04 Dose: 200 mg Documented By: CORRINE Apixaban (Apixaban 2.5 Mg Tablet) 2.5 mg PO BID [facility] Last Admin: 09/13/22 09:03 Dose: 2.5 mg Documented By: CORRINE Atorvastatin Calcium (Atorvastatin Calcium 80 Mg Tablet) 80 mg PO BEDTIME [facility] Last Admin: 08/25/22 21:41 Dose: 80 mg Documented By: MADDENL Bumetanide (Bumetanide 1 Mg Tablet) 1 mg PO BIDWM [facility]; Protocol Last Admin: 09/13/22 09:03 Dose: 1 mg Documented By: CORRINE Carvedilol (Carvedilol 3.125 Mg Tablet) 3.125 mg PO BID [facility]; Protocol Last Admin: 09/13/22 09:03 Dose: 3.125 mg Documented By: CORRINE Dextrose (Dextrose 50 % 25 Gm/50 Ml Vial) 25 gm IVPUSH Q15M PRN; Protocol PRN Reason: per Hypoglycemia Standing Ord. Fluoxetine HCl (Fluoxetine Hcl 20 Mg Capsule) 20 mg PO DAILY [facility] Last Admin: 09/13/22 09:04 Dose: 20 mg Documented By: CORRINE Glucose (Glucose Gel 15 Gm Gel..Gram.) 15 gm PO Q15M PRN; Protocol PRN Reason: per Hypoglycemia Standing Ord. Insulin Glargine (Insulin Glargine,Hum.Rec.Anlog 100 Unit/Ml 10 Ml Vial) 10 unit SUBCUT DAILY [facility] Last Admin: 09/13/22 09:02 Dose: 10 unit Documented By: CORRINE Insulin Human Lispro (Insulin Lispro 100 Unit/Ml 3 Ml Vial) 0 unit SUBCUT QIDACHS [facility]; Protocol Last Admin: 09/13/22 12:17 Dose: 2 unit Documented By: CORRINE Melatonin (Melatonin 3 Mg Tablet) 6 mg PO BEDTIME PRN PRN Reason: Insomnia Ondansetron HCl (Ondansetron Hcl 4 Mg/2 Ml Vial) 4 mg IVPUSH Q8H PRN PRN Reason: Nausea and Vomiting Pharmacy Consult (Consult Rx Perform Med Rec) 1 each MISCELLANE ONCE PRN PRN Reason: Consult order Sodium Chloride (0.9 % Sodium Chloride Flush 3 Ml Syringe) 3 ml IVFLUSH QSHIFT [facility] Last Admin: 09/13/22 09:06 Dose: 3 ml Documented By: CORRINE Vitamin D (Cholecalciferol (Vitamin D3) 25 Mcg Tablet) 50 mcg PO DAILY [facility] Last Admin: 09/13/22 09:04 Dose: 50 mcg Documented By: CORRINE Labs 09/11/22 06:02 09/12/22 09:35 Labs: Laboratory Results - last 24 hr 09/12/22 09/12/22 09/13/22 16:15 20:24 07:18 POC Glucose 116 H 183 H 113 09/13/22 11:27 POC Glucose 168 H Assessment and Plan (1) Acute respiratory failure with hypoxia: Status: Acute (2) Bacteremia due to Staphylococcus: Status: Acute (3) Type 2 diabetes mellitus with unspecified complications: Status: Acute (4) ESRD (end stage renal disease): Status: Acute Plan This is a 67-year-old male with pertinent history of ESRD on hemodialysis, coronary artery disease with ischemic cardiomyopathy and congestive heart failure with reduced ejection fraction, insulin-dependent diabetes mellitus, paroxysmal atrial fibrillation on Eliquis, mood disorder who presents to the emergency department for evaluation of dyspnea. Found to have left lower no pneumonia 1.Acute hypoxemic respiratory failure secondary to community-acquired pneumonia... Resolved -wean O2 as tolerated 2. Staph epidermis bacteremia -repeat cultures negative x5 days 3.Elevated LFTs -trending downward -HIDA negative -no surgical indication per surgery 4.Toxic metabolic encephalopathy -slowly improving... likely new baseline -will need placement; family elusive 5.ESRD on hemodialysis -HD Tuesday -follow renals/divalents 6.Insulin-dependent diabetes mellitus: -acceptable control on current therapies -Lantus as ordered/lispro correctional scale -adjust as indicated 7.Paroxysmal atrial fibrillation continue Eliquis and amiodarone Eliquis Full code DISPO Plan for STR when bed available; continued admit for safe placement Time Spent With Patient Time: Total time managing care of this patient today ____ minutes. Quality Stroke Does the patient have a stroke diagnosis?: No VTE Prior VTE?: No VTE Risk Level:: Medical - moderate - high VTE Device Contraindication: Treatment Not Indicated VTE Drug Contraindication: N/A - Med Ordered
--- NOTE | 2022-09-13 14:53 | MHC.CLN ---
F/U DIET PER DIABETIC, RENAL PARAMETERS WITH DIALYSIS. DIET=DIABETIC 1800 KCAL, 2 GRAM SODIUM, LOW POTASSIUM, LOW PHOSPHORUS. FLUID RESTRICTION 1200 ML PER 24 HOURS DUE TO HYPONATREMIA. INTAKE MOST MEALS CONTINUES TO BE GOOD, 50-100%, WITH MOST MEALS 100%. DIALYSIS T, TH, SAT. CONTINUE TO FOLLOW INTAKE AND LABS. RD TO FOLLOW WEEKLY.
--- NOTE | 2022-09-13 15:24 | P.PNNP_ITS ---
Subjective Subjective Date of Service: 09/13/22 Interval history: Seen ad examined, events noted Physical Exam Vital Signs: Vital Signs: Last Vital Signs Temp 97.0 F 09/13/22 07:20 Pulse 63 09/13/22 07:20 Resp 16 09/13/22 07:20 BP 139/78 09/13/22 07:20 Pulse Ox 99 09/13/22 07:20 O2 Del Method 09/13/22 07:20 O2 Flow Rate 2.0 08/27/22 07:58 Oxygen Flow Rate 2 08/25/22 17:41 BMI result Body Mass Index 22.6 Const: Other: Awake alert intermittently confused General: cooperative, healthy appearing, comfortable, no acute distress, alert and awake Nutritional Appearance: average body habitus and thin Orientation/consciousness: oriented to person, oriented to place and patient oriented x3 HEENT: Head: Yes normal to inspection, Yes normocephalic and Yes atraumatic Face and sinus: Yes normal facial exam Mouth: Normal oral and palatal mucosa present Teeth and gingiva: dentition normal Eyes: General: appearance normal, both eyes and all related structures Eyelids: Yes eyelids normal Conjunctivae: conjunctivae normal Sclerae: sclerae normal Corneas: corneas normal Pupils: Equal, round and reactive p upils present EOM: EOMs intact bilaterally Neck: Neck: Yes supple Chest: Other: HD catheter present Resp: Other: Diminished left base with scant crackles Effort & Inspection: normal respiratory effort, able to speak in complete sentences, no audible wheezes, not labored, no respiratory distress and no use of accessory muscles Auscultation: clear to auscultation bilaterally and diminished lung sounds Cardio: Other: No S4; positive S1-S2; no S3 murmurs rubs gallops Rate: regular rate Rhythm: regular rhythm Heart sounds: S1 normal heart sound present and S2 normal heart sound present GI: Other: Soft nontender nondistended normoactive bowel sounds Inspection: No distended Palpation (GI): Soft to palpation, nontender, no guarding and not rigid : General: Yes no CVA tenderness Back/Spine/Pelvis: Back: no CVA tenderness Skin: General skin exam: no rashes or lesions noted and elasticity normal Lesions: no lesions Rashes: no rashes Neuro: Other: face symmetrical, tongue midline, hand grasp equal, able to move all extremities General: oriented to person, oriented to place, patient oriented x3 and moves all extremities Cranial nerves: Yes Equal, round and reactive pupils present and Yes Midline tongue present Extrem: Other: No edema bilaterally General: Yes normal to inspection, Yes full ROM and Yes no pedal edema Psych: Appearance: grossly normal Objective Data Labs 09/11/22 06:02 09/12/22 09:35 Labs: Laboratory Results - last 24 hr 09/12/22 09/12/22 09/13/22 16:15 20:24 07:18 POC Glucose 116 H 183 H 113 09/13/22 11:27 POC Glucose 168 H Microbiology Microbiology Results: Microbiology 08/27/22 08:02 Blood - Venous Blood Culture - Final No growth after 5 days. 08/27/22 07:55 Blood - Venous Blood Culture - Final No growth after 5 days. 08/25/22 19:40 Blood - Venous Blood Culture - Final Staphylococcus epidermidis 08/25/22 19:40 Blood - Venous Blood Culture - Final Staphylococcus epidermidis Procedures Date of Service Date of Service: 09/13/22 Assessment & Plan Assessment and plan (1) ESRD (end stage renal disease): Status: Acute (2) HFrEF (heart failure with reduced ejection fraction): Status: Acute Assessment and Plan: euvolemic now (3) Bacteremia due to Staphylococcus: Status: Acute Assessment and Plan: - ESRD: TTS - Pnuemonia: resolved - Staph epi ( 08/25) and subsequent Bld Cult neg -HypoNa: restrict PO fluids REC: no new recs; cont to restrict PO fluids 1200/24 hrs; cont hD TTS; d/c planning; track HB and hold EPO for now will follow w team Time Spent With Patient Time: Total time managing care of this patient today ____ minutes. Progress Note: Quality Stroke Does the patient have a stroke diagnosis?: No
[2022-09-13 15:31] VITALS: BP 130/71; PULSE 65; RESP 18; TEMP 36.3; O2SAT 97
[2022-09-13 19:33] VITALS: BP 132/74; PULSE 60; RESP 17; TEMP 36.4; O2SAT 99
[2022-09-13 22:01] LABS: Glucose, Whole Blood 144 mg/dL (60-115)
[2022-09-14 07:27] VITALS: BP 138/79; PULSE 61; RESP 16; TEMP 36.2; O2SAT 97
[2022-09-14 07:33] LABS: Glucose, Whole Blood 159 mg/dL (60-115)
[2022-09-14] MEDS: Insulin Glargine,Hum.rec.anlog 100 UNIT/ML 10 ML VIAL 10 UNIT SUBCUT (08:14)
[2022-09-14] MEDS: Insulin Lispro 100 UNIT/ML 3 ML VIAL SUBCUT ×2 (08:14→17:13)
[2022-09-14] MEDS: Apixaban 2.5 MG TABLET PO ×2 (08:15→21:20)
[2022-09-14] MEDS: FLUoxetine HCl 20 MG CAPSULE PO (08:15)
[2022-09-14] MEDS: Cholecalciferol (Vitamin D3) 25 MCG TABLET 50 MCG PO (08:15)
[2022-09-14] MEDS: 0.9 % Sodium Chloride Flush 3 ML SYRINGE IVFLUSH ×3 (08:20→21:20)
[2022-09-14 08:33] LABS: Glucose, Whole Blood 165 mg/dL (60-115)
[2022-09-14 08:33] LABS: Glucose, Whole Blood 119 mg/dL (60-115)
--- NOTE | 2022-09-14 14:21 | P.PNIM_ITS ---
Subjective Subjective Date of Service: 09/14/22 Interval History: no acute issues overnight Review of Systems Unable to obtain Physical Exam Vital Signs: Vital Signs: Last Vital Signs Temp 97.1 F 09/14/22 07:27 Pulse 61 09/14/22 07:27 Resp 16 09/14/22 07:27 BP 138/79 09/14/22 07:27 Pulse Ox 97 09/14/22 07:27 O2 Del Method 09/14/22 07:27 O2 Flow Rate 2.0 08/27/22 07:58 Oxygen Flow Rate 2 08/25/22 17:41 BMI result Body Mass Index 22.6 Const: Other: Awake alert intermittently confused Resp: Other: Diminished left base with scant crackles Cardio: Other: No S4; positive S1-S2; no S3 murmurs rubs gallops GI: Other: Soft nontender nondistended normoactive bowel sounds Extrem: Other: No edema bilaterally Objective Data Active Medications Acetaminophen (Acetaminophen 325 Mg Tablet) 650 mg PO Q6H PRN PRN Reason: Pain, Mild (Pain Scale 1-3) Amiodarone HCl (Amiodarone Hcl 200 Mg Tablet) 200 mg PO DAILY [facility] Last Admin: 09/14/22 09:10 Dose: Not Given Documented By: DEISY Non-Admin Reason: Off unit: Dialysis Apixaban (Apixaban 2.5 Mg Tablet) 2.5 mg PO BID [facility] Last Admin: 09/14/22 08:15 Dose: 2.5 mg Documented By: DEISY Atorvastatin Calcium (Atorvastatin Calcium 80 Mg Tablet) 80 mg PO BEDTIME [facility] Last Admin: 08/25/22 21:41 Dose: 80 mg Documented By: MADDENL Bumetanide (Bumetanide 1 Mg Tablet) 1 mg PO BIDWM [facility]; Protocol Last Admin: 09/14/22 09:09 Dose: Not Given Documented By: DEISY Non-Admin Reason: Off unit: Dialysis Carvedilol (Carvedilol 3.125 Mg Tablet) 3.125 mg PO BID [facility]; Protocol Last Admin: 09/14/22 09:10 Dose: Not Given Documented By: DEISY Non-Admin Reason: Off unit: Dialysis Fluoxetine HCl (Fluoxetine Hcl 20 Mg Capsule) 20 mg PO DAILY [facility] Last Admin: 09/14/22 08:15 Dose: 20 mg Documented By: DEISY Glucose (Glucose Gel 15 Gm Gel..Gram.) 15 gm PO Q15M PRN; Protocol PRN Reason: per Hypoglycemia Standing Ord. Dextrose (D10) 250 mls @ 750 mls/hr IV Q15M PRN PRN Reason: per Hypoglycemia Standing Ord. Insulin Glargine (Insulin Glargine,Hum.Rec.Anlog 100 Unit/Ml 10 Ml Vial) 10 unit SUBCUT DAILY [facility] Last Admin: 09/14/22 08:14 Dose: 10 unit Documented By: DEISY Insulin Human Lispro (Insulin Lispro 100 Unit/Ml 3 Ml Vial) 0 unit SUBCUT QIDACHS [facility]; Protocol Last Admin: 09/14/22 12:07 Dose: Not Given Documented By: DEISY Non-Admin Reason: No Insulin Coverage Melatonin (Melatonin 3 Mg Tablet) 6 mg PO BEDTIME PRN PRN Reason: Insomnia Ondansetron HCl (Ondansetron Hcl 4 Mg/2 Ml Vial) 4 mg IVPUSH Q8H PRN PRN Reason: Nausea and Vomiting Pharmacy Consult (Consult Rx Perform Med Rec) 1 each MISCELLANE ONCE PRN PRN Reason: Consult order Sodium Chloride (0.9 % Sodium Chloride Flush 3 Ml Syringe) 3 ml IVFLUSH QSHIFT [facility] Last Admin: 09/14/22 08:20 Dose: 3 ml Documented By: DEISY Vitamin D (Cholecalciferol (Vitamin D3) 25 Mcg Tablet) 50 mcg PO DAILY [facility] Last Admin: 09/14/22 08:15 Dose: 50 mcg Documented By: DEISY Labs 09/11/22 06:02 09/12/22 09:35 Labs: Laboratory Results - last 24 hr 09/13/22 09/13/22 09/13/22 16:32 20:51 21:56 POC Glucose 119 H 165 H 144 H 09/14/22 07:26 POC Glucose 159 H Assessment and Plan (1) Acute respiratory failure with hypoxia: Status: Acute (2) Bacteremia due to Staphylococcus: Status: Acute (3) Type 2 diabetes mellitus with unspecified complications: Status: Acute Plan This is a 67-year-old male with pertinent history of ESRD on hemodialysis, coronary artery disease with ischemic cardiomyopathy and congestive heart failure with reduced ejection fraction, insulin-dependent diabetes mellitus, paroxysmal atrial fibrillation on Eliquis, mood disorder who presents to the emergency department for evaluation of dyspnea. Found to have left lower no pneumonia 1.Acute hypoxemic respiratory failure secondary to community-acquired pneumonia... Resolved -wean O2 as tolerated 2. Staph epidermis bacteremia -repeat cultures negative x5 days 3.Elevated LFTs -trending downward -HIDA negative -no surgical indication per surgery 4.Toxic metabolic encephalopathy -slowly improving... likely new baseline -will need placement; family elusive 5.ESRD on hemodialysis -HD Tuesday -follow renals/divalents 6.Insulin-dependent diabetes mellitus: -acceptable control on current therapies -Lantus as ordered/lispro correctional scale -adjust as indicated 7.Paroxysmal atrial fibrillation continue Eliquis and amiodarone Eliquis Full code DISPO Plan for STR when bed available; continued admit for safe placement Time Spent With Patient Time: Total time managing care of this patient today ____ minutes. Quality Stroke Does the patient have a stroke diagnosis?: No VTE Prior VTE?: No VTE Risk Level:: Medical - moderate - high VTE Device Contraindication: Treatment Not Indicated VTE Drug Contraindication: N/A - Med Ordered
--- NOTE | 2022-09-14 15:30 | P.PNNP_ITS ---
Subjective Subjective Date of Service: 09/14/22 Interval history: Seen and examined,events noted Physical Exam Vital Signs: Vital Signs: Last Vital Signs Temp 97.1 F 09/14/22 07:27 Pulse 61 09/14/22 07:27 Resp 16 09/14/22 07:27 BP 138/79 09/14/22 07:27 Pulse Ox 97 09/14/22 07:27 O2 Del Method 09/14/22 07:27 O2 Flow Rate 2.0 08/27/22 07:58 Oxygen Flow Rate 2 08/25/22 17:41 BMI result Body Mass Index 22.6 Const: Other: Awake alert intermittently confused General: cooperative, healthy appearing, comfortable, no acute distress, alert and awake Nutritional Appearance: average body habitus and thin Orientation/consciousness: oriented to person, oriented to place and patient oriented x3 HEENT: Head: Yes normal to inspection, Yes normocephalic and Yes atraumatic Face and sinus: Yes normal facial exam Mouth: Normal oral and palatal mucosa present Teeth and gingiva: dentition normal Eyes: General: appearance normal, both eyes and all related structures Eyelids: Yes eyelids normal Conjunctivae: conjunctivae normal Sclerae: sclerae normal Corneas: corneas normal Pupils: Equal, round and reactive p upils present EOM: EOMs intact bilaterally Neck: Neck: Yes supple Chest: Other: HD catheter present Resp: Other: Diminished left base with scant crackles Effort & Inspection: normal respiratory effort, able to speak in complete sentences, no audible wheezes, not labored, no respiratory distress and no use of accessory muscles Auscultation: clear to auscultation bilaterally and diminished lung sounds Cardio: Other: No S4; positive S1-S2; no S3 murmurs rubs gallops Rate: regular rate Rhythm: regular rhythm Heart sounds: S1 normal heart sound present and S2 normal heart sound present GI: Other: Soft nontender nondistended normoactive bowel sounds Inspection: No distended Palpation (GI): Soft to palpation, nontender, no guarding and not rigid : General: Yes no CVA tenderness Back/Spine/Pelvis: Back: no CVA tenderness Skin: General skin exam: no rashes or lesions noted and elasticity normal Lesions: no lesions Rashes: no rashes Neuro: Other: face symmetrical, tongue midline, hand grasp equal, able to move all extremities General: oriented to person, oriented to place, patient oriented x3 and moves all extremities Cranial nerves: Yes Equal, round and reactive pupils present and Yes Midline tongue present Extrem: Other: No edema bilaterally General: Yes normal to inspection, Yes full ROM and Yes no pedal edema Psych: Appearance: grossly normal Objective Data Labs 09/11/22 06:02 09/12/22 09:35 Labs: Laboratory Results - last 24 hr 09/13/22 09/13/22 09/13/22 16:32 20:51 21:56 POC Glucose 119 H 165 H 144 H 09/14/22 07:26 POC Glucose 159 H Microbiology Microbiology Results: Microbiology 08/27/22 08:02 Blood - Venous Blood Culture - Final No growth after 5 days. 08/27/22 07:55 Blood - Venous Blood Culture - Final No growth after 5 days. 08/25/22 19:40 Blood - Venous Blood Culture - Final Staphylococcus epidermidis 08/25/22 19:40 Blood - Venous Blood Culture - Final Staphylococcus epidermidis Procedures Date of Service Date of Service: 09/14/22 Assessment & Plan Assessment and plan (1) ESRD (end stage renal disease): Status: Acute (2) HFrEF (heart failure with reduced ejection fraction): Status: Acute Assessment and Plan: euvolemic now (3) Bacteremia due to Staphylococcus: Status: Acute Assessment and Plan: - ESRD: TTS; currently on HD - Pnuemonia: resolved - Staph epi ( 08/25) and subsequent Bld Cult neg -HypoNa: restrict PO fluids REC: no new recs; cont to restrict PO fluids 1200/24 hrs; cont hD TTS; d/c planning; track HB and hold EPO for now will follow w team Time Spent With Patient Time: Total time managing care of this patient today ____ minutes. Progress Note: Quality Stroke Does the patient have a stroke diagnosis?: No
[2022-09-14 16:00] VITALS: BP 127/58; PULSE 73; RESP 18; TEMP 36.8; O2SAT 95
[2022-09-14 16:45] LABS: Glucose, Whole Blood 127 mg/dL (60-115)
[2022-09-14 16:45] LABS: Glucose, Whole Blood 211 mg/dL (60-115)
[2022-09-14] MEDS: Bumetanide 1 MG TABLET PO (17:13)
[2022-09-14 20:00] VITALS: BP 160/59; PULSE 89; RESP 18; TEMP 36.6; O2SAT 95
[2022-09-14 20:37] LABS: Glucose, Whole Blood 138 mg/dL (60-115)
[2022-09-14] MEDS: carvediloL 3.125 MG TABLET PO (21:20)
[2022-09-15 06:05] LABS: HBS Num1 317.19 mIU/mL (0-7.99); HBc Num1 0.59 S/CO (0.00-0.79); HBsAGNum1 0.27 S/CO (0.00-0.99); Hepatitis B Core Antibody Nonreactive (Nonreactive); Hepatitis B Surface Antigen Negative (Negative); ~Hepatitis B Surface Antibody REACTIVE (Nonreactive)
[2022-09-15 07:19] VITALS: BP 135/75; PULSE 65; RESP 18; TEMP 36.5; O2SAT 94
[2022-09-15 07:39] LABS: Glucose, Whole Blood 100 mg/dL (60-115)
[2022-09-15] MEDS: carvediloL 3.125 MG TABLET PO ×2 (08:13→21:23)
[2022-09-15] MEDS: Cholecalciferol (Vitamin D3) 25 MCG TABLET 50 MCG PO (08:13)
[2022-09-15] MEDS: Bumetanide 1 MG TABLET PO ×2 (08:13→17:01)
[2022-09-15] MEDS: FLUoxetine HCl 20 MG CAPSULE PO (08:14)
[2022-09-15] MEDS: Apixaban 2.5 MG TABLET PO ×2 (08:14→21:23)
[2022-09-15] MEDS: Amiodarone HCL 200 MG TABLET PO (08:14)
[2022-09-15] MEDS: Insulin Glargine,Hum.rec.anlog 100 UNIT/ML 10 ML VIAL 10 UNIT SUBCUT (08:14)
[2022-09-15] MEDS: 0.9 % Sodium Chloride Flush 3 ML SYRINGE IVFLUSH ×3 (08:43→21:23)
[2022-09-15 11:49] LABS: Glucose, Whole Blood 148 mg/dL (60-115)
--- NOTE | 2022-09-15 11:58 | HO.PM.IMPN ---
Subjective Subjective Date of Service: 09/15/22 Interval History: remains pleasantly confused. No acute behavioral issues Review of Systems Unable to obtain Physical Exam Vital Signs: Vital Signs: Last Vital Signs Temp 97.7 F 09/15/22 07:19 Pulse 65 09/15/22 07:19 Resp 18 09/15/22 07:19 BP 135/75 09/15/22 07:19 Pulse Ox 94 09/15/22 07:19 O2 Del Method 09/15/22 07:19 O2 Flow Rate 2.0 08/27/22 07:58 Oxygen Flow Rate 2 08/25/22 17:41 BMI result Body Mass Index 22.6 Const: Other: Awake alert intermittently confused Resp: Other: Diminished left base with scant crackles Cardio: Other: No S4; positive S1-S2; no S3 murmurs rubs gallops GI: Other: Soft nontender nondistended normoactive bowel sounds Extrem: Other: No edema bilaterally Objective Data Active Medications Acetaminophen (Acetaminophen 325 Mg Tablet) 650 mg PO Q6H PRN PRN Reason: Pain, Mild (Pain Scale 1-3) Amiodarone HCl (Amiodarone Hcl 200 Mg Tablet) 200 mg PO DAILY [facility] Last Admin: 09/15/22 08:14 Dose: 200 mg Documented By: TONIO Apixaban (Apixaban 2.5 Mg Tablet) 2.5 mg PO BID [facility] Last Admin: 09/15/22 08:14 Dose: 2.5 mg Documented By: TONIO Atorvastatin Calcium (Atorvastatin Calcium 80 Mg Tablet) 80 mg PO BEDTIME [facility] Last Admin: 08/25/22 21:41 Dose: 80 mg Documented By: MADDENL Bumetanide (Bumetanide 1 Mg Tablet) 1 mg PO BIDWM [facility]; Protocol Last Admin: 09/15/22 08:13 Dose: 1 mg Documented By: TONIO Carvedilol (Carvedilol 3.125 Mg Tablet) 3.125 mg PO BID [facility]; Protocol Last Admin: 09/15/22 08:13 Dose: 3.125 mg Documented By: TONIO Fluoxetine HCl (Fluoxetine Hcl 20 Mg Capsule) 20 mg PO DAILY [facility] Last Admin: 09/15/22 08:14 Dose: 20 mg Documented By: TONIO Glucose (Glucose Gel 15 Gm Gel..Gram.) 15 gm PO Q15M PRN; Protocol PRN Reason: per Hypoglycemia Standing Ord. Dextrose (D10) 250 mls @ 750 mls/hr IV Q15M PRN PRN Reason: per Hypoglycemia Standing Ord. Insulin Glargine (Insulin Glargine,Hum.Rec.Anlog 100 Unit/Ml 10 Ml Vial) 10 unit SUBCUT DAILY [facility] Last Admin: 09/15/22 08:14 Dose: 10 unit Documented By: TONIO Insulin Human Lispro (Insulin Lispro 100 Unit/Ml 3 Ml Vial) 0 unit SUBCUT QIDACHS [facility]; Protocol Last Admin: 09/15/22 07:57 Dose: Not Given Documented By: TONIO Non-Admin Reason: No Insulin Coverage Melatonin (Melatonin 3 Mg Tablet) 6 mg PO BEDTIME PRN PRN Reason: Insomnia Ondansetron HCl (Ondansetron Hcl 4 Mg/2 Ml Vial) 4 mg IVPUSH Q8H PRN PRN Reason: Nausea and Vomiting Pharmacy Consult (Consult Rx Perform Med Rec) 1 each MISCELLANE ONCE PRN PRN Reason: Consult order Sodium Chloride (0.9 % Sodium Chloride Flush 3 Ml Syringe) 3 ml IVFLUSH QSHIFT [facility] Last Admin: 09/15/22 08:43 Dose: 3 ml Documented By: TONIO Vitamin D (Cholecalciferol (Vitamin D3) 25 Mcg Tablet) 50 mcg PO DAILY [facility] Last Admin: 09/15/22 08:13 Dose: 50 mcg Documented By: TONIO Labs 09/11/22 06:02 09/12/22 09:35 Labs: Laboratory Results - last 24 hr 09/14/22 09/14/22 09/14/22 11:42 14:28 16:36 POC Glucose 127 H 211 H Hep Bs Antigen Negative Hep Bs Antibody REACTIVE Hep B Core Total Ab Nonreactive 09/14/22 09/15/22 09/15/22 20:30 07:17 11:44 POC Glucose 138 H 100 148 H Hep Bs Antigen Hep Bs Antibody Hep B Core Total Ab Assessment and Plan (1) Acute respiratory failure with hypoxia: Status: Acute (2) Bacteremia due to Staphylococcus: Status: Acute (3) ESRD (end stage renal disease): Status: Acute Plan This is a 67-year-old male with pertinent history of ESRD on hemodialysis, coronary artery disease with ischemic cardiomyopathy and congestive heart failure with reduced ejection fraction, insulin-dependent diabetes mellitus, paroxysmal atrial fibrillation on Eliquis, mood disorder who presents to the emergency department for evaluation of dyspnea. Found to have left lower no pneumonia 1.Acute hypoxemic respiratory failure secondary to community-acquired pneumonia... Resolved -wean O2 as tolerated 2. Staph epidermis bacteremia -repeat cultures negative x5 days 3.Elevated LFTs -trending downward -HIDA negative -no surgical indication per surgery 4.Toxic metabolic encephalopathy -slowly improving... likely new baseline -will need placement; family elusive 5.ESRD on hemodialysis -HD Tuesday -follow renals/divalents 6.Insulin-dependent diabetes mellitus: -acceptable control on current therapies -Lantus as ordered/lispro correctional scale -adjust as indicated 7.Paroxysmal atrial fibrillation continue Eliquis and amiodarone Eliquis Full code DISPO Plan for STR when bed available; continued admit for safe placement Time Spent With Patient Time: Total time managing care of this patient today ____ minutes. Quality Stroke Does the patient have a stroke diagnosis?: No VTE Prior VTE?: No VTE Risk Level:: Medical - moderate - high VTE Device Contraindication: Treatment Not Indicated VTE Drug Contraindication: N/A - Med Ordered
[2022-09-15 15:26] VITALS: BP 126/75; PULSE 62; RESP 18; TEMP 36.2; O2SAT 98
[2022-09-15 16:47] LABS: Glucose, Whole Blood 153 mg/dL (60-115)
[2022-09-15] MEDS: Insulin Lispro 100 UNIT/ML 3 ML VIAL SUBCUT (17:01)
--- NOTE | 2022-09-15 18:50 | PM.PNNEP ---
Subjective Subjective Date of Service: 09/15/22 Interval history: Seen and examiend,sanjeev de la garza noted Physical Exam Vital Signs: Vital Signs: Last Vital Signs Temp 97.2 F 09/15/22 15:26 Pulse 62 09/15/22 15:26 Resp 18 09/15/22 15:26 BP 126/75 09/15/22 15:26 Pulse Ox 98 09/15/22 15:26 O2 Del Method 09/15/22 15:26 O2 Flow Rate 2.0 08/27/22 07:58 Oxygen Flow Rate 2 08/25/22 17:41 BMI result Body Mass Index 22.6 Const: Other: Awake alert intermittently confused General: cooperative, healthy appearing, comfortable, no acute distress, alert and awake Nutritional Appearance: average body habitus and thin Orientation/consciousness: oriented to person, oriented to place and patient oriented x3 HEENT: Head: Yes normal to inspection, Yes normocephalic and Yes atraumatic Face and sinus: Yes normal facial exam Mouth: Normal oral and palatal mucosa present Teeth and gingiva: dentition normal Eyes: General: appearance normal, both eyes and all related structures Eyelids: Yes eyelids normal Conjunctivae: conjunctivae normal Sclerae: sclerae normal Corneas: corneas normal Pupils: Equal, round and reactive pupils present EOM: EOMs intact bilaterally Neck: Neck: Yes supple Chest: Other: HD catheter present Resp: Other: Diminished left base with scant crackles Effort & Inspection: normal respiratory effort, able to speak in complete sentences, no audible wheezes, not labored, no respiratory distress and no use of accessory muscles Auscultation: clear to auscultation bilaterally and diminished lung sounds Cardio: Other: No S4; positive S1-S2; no S3 murmurs rubs gallops Rate: regular rate Rhythm: regular rhythm Heart sounds: S1 normal heart sound present and S2 normal heart sound present GI: Other: Soft nontender nondistended normoactive bowel sounds Inspection: No distended Palpation (GI): Soft to palpation, nontender, no guarding and not rigid : General: Yes no CVA tenderness Back/Spine/Pelvis: Back: no CVA tenderness Skin: General skin exam: no rashes or lesions noted and elasticity normal Lesions: no lesions Rashes: no rashes Neuro: Other: face symmetrical, tongue midline, hand grasp equal, able to move all extremities General: oriented to person, oriented to place, patient oriented x3 and moves all extremities Cranial nerves: Yes Equal, round and reactive pupils present and Yes Midline tongue present Extrem: Other: No edema bilaterally General: Yes normal to inspection, Yes full ROM and Yes no pedal edema Psych: Appearance: grossly normal Objective Data Labs 09/11/22 06:02 09/12/22 09:35 Labs: Laboratory Results - last 24 hr 09/14/22 09/14/22 09/15/22 14:28 20:30 07:17 POC Glucose 138 H 100 Hep Bs Antigen Negative Hep Bs Antibody REACTIVE Hep B Core Total Ab Nonreactive 09/15/22 09/15/22 11:44 16:43 POC Glucose 148 H 153 H Hep Bs Antigen Hep Bs Antibody Hep B Core Total Ab Microbiology Microbiology Results: Microbiology 08/27/22 08:02 Blood - Venous Blood Culture - Final No growth after 5 days. 08/27/22 07:55 Blood - Venous Blood Culture - Final No growth after 5 days. 08/25/22 19:40 Blood - Venous Blood Culture - Final Staphylococcus epidermidis 08/25/22 19:40 Blood - Venous Blood Culture - Final Staphylococcus epidermidis Procedures Date of Service Date of Service: 09/15/22 Assessment & Plan Assessment and plan (1) ESRD (end stage renal disease): Status: Acute (2) HFrEF (heart failure with reduced ejection fraction): Status: Acute Assessment and Plan: euvolemic now (3) Bacteremia due to Staphylococcus: Status: Acute Assessment and Plan: - ESRD: TTS; currently on HD - Pnuemonia: resolved - Staph epi ( 08/25) and subsequent Bld Cult neg -HypoNa: restrict PO fluids REC: no new recs; cont to restrict PO fluids 1200/24 hrs; cont hD TTS; d/c planning; track HB and hold EPO for now will follow w team Time Spent With Patient Time: Total time managing care of this patient today ____ minutes. Progress Note: Quality Stroke Does the patient have a stroke diagnosis?: No
[2022-09-15 19:51] VITALS: BP 122/68; PULSE 62; RESP 16; TEMP 36.2; O2SAT 99
[2022-09-15 21:15] LABS: Glucose, Whole Blood 133 mg/dL (60-115)
[2022-09-16 04:00] VITALS: BP 131/70; PULSE 62; RESP 18; TEMP 36; O2SAT 97
[2022-09-16 07:40] LABS: Glucose, Whole Blood 104 mg/dL (60-115)
[2022-09-16 08:00] VITALS: BP 141/79; PULSE 67; RESP 17; TEMP 36.1; O2SAT 95
[2022-09-16] MEDS: carvediloL 3.125 MG TABLET PO ×2 (08:21→21:41)
[2022-09-16] MEDS: Bumetanide 1 MG TABLET PO (08:21)
[2022-09-16] MEDS: Amiodarone HCL 200 MG TABLET PO (08:21)
[2022-09-16] MEDS: Cholecalciferol (Vitamin D3) 25 MCG TABLET 50 MCG PO (08:21)
[2022-09-16] MEDS: FLUoxetine HCl 20 MG CAPSULE PO (08:21)
[2022-09-16] MEDS: Apixaban 2.5 MG TABLET PO ×2 (08:21→21:41)
[2022-09-16] MEDS: 0.9 % Sodium Chloride Flush 3 ML SYRINGE IVFLUSH ×3 (08:22→21:41)
[2022-09-16] MEDS: Insulin Glargine,Hum.rec.anlog 100 UNIT/ML 10 ML VIAL 10 UNIT SUBCUT (08:23)
--- NOTE | 2022-09-16 11:36 | HO.PM.IMPN ---
Subjective Subjective Date of Service: 09/16/22 Interval History: No acute issues overnight. Remains tolerant of dialysis Review of Systems Unable to obtain Physical Exam Vital Signs: Vital Signs: Last Vital Signs Temp 96.9 F 09/16/22 08:00 Pulse 67 09/16/22 08:00 Resp 17 09/16/22 08:00 BP 141/79 H 09/16/22 08:00 Pulse Ox 95 09/16/22 08:00 O2 Del Method 09/16/22 08:00 O2 Flow Rate 2.0 08/27/22 07:58 Oxygen Flow Rate 2 08/25/22 17:41 BMI result Body Mass Index 22.6 Const: Other: Awake alert intermittently confused Resp: Other: Diminished left base with scant crackles Cardio: Other: No S4; positive S1-S2; no S3 murmurs rubs gallops GI: Other: Soft nontender nondistended normoactive bowel sounds Extrem: Other: No edema bilaterally Objective Data Active Medications Acetaminophen (Acetaminophen 325 Mg Tablet) 650 mg PO Q6H PRN PRN Reason: Pain, Mild (Pain Scale 1-3) Amiodarone HCl (Amiodarone Hcl 200 Mg Tablet) 200 mg PO DAILY [facility] Last Admin: 09/16/22 08:21 Dose: 200 mg Documented By: SHANNAN Apixaban (Apixaban 2.5 Mg Tablet) 2.5 mg PO BID [facility] Last Admin: 09/16/22 08:21 Dose: 2.5 mg Documented By: SHANNAN Atorvastatin Calcium (Atorvastatin Calcium 80 Mg Tablet) 80 mg PO BEDTIME [facility] Last Admin: 08/25/22 21:41 Dose: 80 mg Documented By: MADDENL Bumetanide (Bumetanide 1 Mg Tablet) 1 mg PO BIDWM [facility]; Protocol Last Admin: 09/16/22 08:21 Dose: 1 mg Documented By: SHANNAN Carvedilol (Carvedilol 3.125 Mg Tablet) 3.125 mg PO BID [facility]; Protocol Last Admin: 09/16/22 08:21 Dose: 3.125 mg Documented By: SHANNAN Fluoxetine HCl (Fluoxetine Hcl 20 Mg Capsule) 20 mg PO DAILY [facility] Last Admin: 09/16/22 08:21 Dose: 20 mg Documented By: SHANNAN Glucose (Glucose Gel 15 Gm Gel..Gram.) 15 gm PO Q15M PRN; Protocol PRN Reason: per Hypoglycemia Standing Ord. Dextrose (D10) 250 mls @ 750 mls/hr IV Q15M PRN PRN Reason: per Hypoglycemia Standing Ord. Insulin Glargine (Insulin Glargine,Hum.Rec.Anlog 100 Unit/Ml 10 Ml Vial) 10 unit SUBCUT DAILY [facility] Last Admin: 09/16/22 08:23 Dose: 10 unit Documented By: SHANNAN Insulin Human Lispro (Insulin Lispro 100 Unit/Ml 3 Ml Vial) 0 unit SUBCUT QIDACHS [facility]; Protocol Last Admin: 09/16/22 07:33 Dose: Not Given Documented By: SHANNAN Non-Admin Reason: No Insulin Coverage Melatonin (Melatonin 3 Mg Tablet) 6 mg PO BEDTIME PRN PRN Reason: Insomnia Ondansetron HCl (Ondansetron Hcl 4 Mg/2 Ml Vial) 4 mg IVPUSH Q8H PRN PRN Reason: Nausea and Vomiting Pharmacy Consult (Consult Rx Perform Med Rec) 1 each MISCELLANE ONCE PRN PRN Reason: Consult order Sodium Chloride (0.9 % Sodium Chloride Flush 3 Ml Syringe) 3 ml IVFLUSH QSHIFT [facility] Last Admin: 09/16/22 08:22 Dose: 3 ml Documented By: SHANNAN Vitamin D (Cholecalciferol (Vitamin D3) 25 Mcg Tablet) 50 mcg PO DAILY [facility] Last Admin: 09/16/22 08:21 Dose: 50 mcg Documented By: SHANNAN Labs 09/11/22 06:02 09/12/22 09:35 Labs: Laboratory Results - last 24 hr 09/15/22 09/15/22 09/15/22 11:44 16:43 21:02 POC Glucose 148 H 153 H 133 H 09/16/22 07:31 POC Glucose 104 Assessment and Plan (1) Acute respiratory failure with hypoxia: Status: Acute (2) ESRD (end stage renal disease): Status: Acute Plan This is a 67-year-old male with pertinent history of ESRD on hemodialysis, coronary artery disease with ischemic cardiomyopathy and congestive heart failure with reduced ejection fraction, insulin-dependent diabetes mellitus, paroxysmal atrial fibrillation on Eliquis, mood disorder who presents to the emergency department for evaluation of dyspnea. Found to have left lower no pneumonia 1.Acute hypoxemic respiratory failure secondary to community-acquired pneumonia... Resolved -wean O2 as tolerated 2. Staph epidermis bacteremia -repeat cultures negative x5 days 3.Elevated LFTs -trending downward -HIDA negative -no surgical indication per surgery 4.Toxic metabolic encephalopathy -slowly improving... likely new baseline -will need placement; family elusive 5.ESRD on hemodialysis -HD Tuesday -follow renals/divalents 6.Insulin-dependent diabetes mellitus: -acceptable control on current therapies -Lantus as ordered/lispro correctional scale -adjust as indicated 7.Paroxysmal atrial fibrillation continue Eliquis and amiodarone Eliquis Full code DISPO Plan for STR when bed available; continued admit for safe placement Time Spent With Patient Time: Total time managing care of this patient today ____ minutes. Quality Stroke Does the patient have a stroke diagnosis?: No VTE Prior VTE?: No VTE Risk Level:: Medical - moderate - high VTE Device Contraindication: Treatment Not Indicated VTE Drug Contraindication: N/A - Med Ordered
[2022-09-16 13:26] LABS: Glucose, Whole Blood 105 mg/dL (60-115)
[2022-09-16 16:00] VITALS: BP 96/56; PULSE 60; RESP 18; TEMP 36.3; O2SAT 96
[2022-09-16 16:40] LABS: Glucose, Whole Blood 152 mg/dL (60-115)
[2022-09-16] MEDS: Insulin Lispro 100 UNIT/ML 3 ML VIAL SUBCUT (16:50)
--- NOTE | 2022-09-16 18:28 | P.PNNP_ITS ---
Subjective Subjective Date of Service: 09/16/22 Interval history: Seen and examined, events ntoed Physical Exam Vital Signs: Vital Signs: Last Vital Signs Temp 97.3 F 09/16/22 16:00 Pulse 60 09/16/22 16:00 Resp 18 09/16/22 16:00 BP 96/56 L 09/16/22 16:00 Pulse Ox 96 09/16/22 16:00 O2 Del Method 09/16/22 16:00 O2 Flow Rate 2.0 08/27/22 07:58 Oxygen Flow Rate 2 08/25/22 17:41 BMI result Body Mass Index 22.6 Const: Other: Awake alert intermittently confused General: cooperative, healthy appearing, comfortable, no acute distress, alert and awake Nutritional Appearance: average body habitus and thin Orientation/consciousness: oriented to person, oriented to place and patient oriented x3 HEENT: Head: Yes normal to inspection, Yes normocephalic and Yes atraumatic Face and sinus: Yes normal facial exam Mouth: Normal oral and palatal mucosa present Teeth and gingiva: dentition normal Eyes: General: appearance normal, both eyes and all related structures Eyelids: Yes eyelids normal Conjunctivae: conjunctivae normal Sclerae: sclerae normal Corneas: corneas normal Pupils: Equal, round and reactive pupils present EOM: EOMs intact bilaterally Neck: Neck: Yes supple Chest: Other: HD catheter present Resp: Other: Diminished left base with scant crackles Effort & Inspection: normal respiratory effort, able to speak in complete sentences, no audible wheezes, not labored, no respiratory distress and no use of accessory muscles Auscultation: clear to auscultation bilaterally and diminished lung sounds Cardio: Other: No S4; positive S1-S2; no S3 murmurs rubs gallops Rate: regular rate Rhythm: regular rhythm Heart sounds: S1 normal heart sound present and S2 normal heart sound present GI: Other: Soft nontender nondistended normoactive bowel sounds Inspection: No distended Palpation (GI): Soft to palpation, nontender, no guarding and not rigid : General: Yes no CVA tenderness Back/Spine/Pelvis: Back: no CVA tenderness Skin: General skin exam: no rashes or lesions noted and elasticity normal Lesions: no lesions Rashes: no rashes Neuro: Other: face symmetrical, tongue midline, hand grasp equal, able to move all extremities General: oriented to person, oriented to place, patient oriented x3 and moves all extremities Cranial nerves: Yes Equal, round and reactive pupils present and Yes Midline tongue present Extrem: Other: No edema bilaterally General: Yes normal to inspection, Yes full ROM and Yes no pedal edema Psych: Appearance: grossly normal Objective Data Labs 09/11/22 06:02 09/12/22 09:35 Labs: Laboratory Results - last 24 hr 09/15/22 09/16/22 09/16/22 21:02 07:31 13:20 POC Glucose 133 H 104 105 09/16/22 16:37 POC Glucose 152 H Microbiology Microbiology Results: Microbiology 08/27/22 08:02 Blood - Venous Blood Culture - Final No growth after 5 days. 08/27/22 07:55 Blood - Venous Blood Culture - Final No growth after 5 days. 08/25/22 19:40 Blood - Venous Blood Culture - Final Staphylococcus epidermidis 08/25/22 19:40 Blood - Venous Blood Culture - Final Staphylococcus epidermidis Assessment & Plan Assessment and plan (1) Acute respiratory failure with hypoxia: Status: Acute (2) ESRD (end stage renal disease): Status: Acute Plan This is a 67-year-old male with pertinent history of ESRD on hemodialysis, coronary artery disease with ischemic cardiomyopathy and congestive heart failu re with reduced ejection fraction, insulin-dependent diabetes mellitus, paroxysmal atrial fibrillation on Eliquis, mood disorder who presents to the emergency department for evaluation of dyspnea. Found to have left lower no pneumonia 1.Acute hypoxemic respiratory failure secondary to community-acquired pneumonia... Resolved -wean O2 as tolerated 2. Staph epidermis bacteremia -repeat cultures negative x5 days 3.Elevated LFTs -trending downward -HIDA negative -no surgical indication per surgery 4.Toxic metabolic encephalopathy -slowly improving... likely new baseline -will need placement; family elusive 5.ESRD on hemodialysis -HD Tuesday -follow renals/divalents 6.Insulin-dependent diabetes mellitus: -acceptable control on current therapies -Lantus as ordered/lispro correctional scale -adjust as indicated 7.Paroxysmal atrial fibrillation continue Eliquis and amiodarone Eliquis Full code DISPO Plan for STR when bed available; continued admit for safe placement Time Spent With Patient Time: Total time managing care of this patient today ____ minutes. Progress Note: Quality Stroke Does the patient have a stroke diagnosis?: No
--- NOTE | 2022-09-16 18:30 | PM.PNNEP ---
Subjective Subjective Date of Service: 09/16/22 Interval history: Seen and exmained,events ntoed Physical Exam Vital Signs: Vital Signs: Last Vital Signs Temp 97.3 F 09/16/22 16:00 Pulse 60 09/16/22 16:00 Resp 18 09/16/22 16:00 BP 96/56 L 09/16/22 16:00 Pulse Ox 96 09/16/22 16:00 O2 Del Method 09/16/22 16:00 O2 Flow Rate 2.0 08/27/22 07:58 Oxygen Flow Rate 2 08/25/22 17:41 BMI result Body Mass Index 22.6 Const: General: cooperative, healthy appearing, comfortable, no acute distress, alert and awake Nutritional Appearance: average body habitus and thin Orientation/consciousness: oriented to person, oriented to place and patient oriented x3 HEENT: Head: Yes normal to inspection, Yes normocephalic and Yes atraumatic Face and sinus: Yes normal facial exam Mouth: Normal oral and palatal mucosa present Teeth and gingiva: dentition normal Eyes: General: appearance normal, both eyes and all related structures Eyelids: Yes eyelids normal Conjunctivae: conjunctivae normal Sclerae: sclerae normal Corneas: corneas normal Pupils: Equal, round and reactive pupils present EOM: EOMs intact bilaterally Neck: Neck: Yes supple Resp: Effort & Inspection: normal respiratory effort, able to speak in complete sentences, no audible wheezes, not labored, no respiratory distress and no use of accessory muscles Auscultation: clear to auscultation bilaterally and diminished lung sounds Cardio: Rate: regular rate Rhythm: regular rhythm Heart sounds: S1 normal heart sound present and S2 normal heart sound present GI: Inspection: No distended Palpation (GI): Soft to palpation, nontender, no guarding and not rigid : General: Yes no CVA tenderness Back/Spine/Pelvis: Back: no CVA tenderness Skin: General skin exam: no rashes or lesions noted and elasticity normal Lesions: no lesions Rashes: no rashes Neuro: General: oriented to person, oriented to place, patient oriented x3 and moves all extremities Cranial nerves: Yes Equal, round and reactive pupils present and Yes Midline tongue present Extrem: General: Yes normal to inspection, Yes full ROM and Yes no pedal edema Psych: Appearance: grossly normal Objective Data Labs 09/11/22 06:02 09/12/22 09:35 Labs: Laboratory Results - last 24 hr 09/15/22 09/16/22 09/16/22 21:02 07:31 13:20 POC Glucose 133 H 104 105 09/16/22 16:37 POC Glucose 152 H Microbiology Microbiology Results: Microbiology 08/27/22 08:02 Blood - Venous Blood Culture - Final No growth after 5 days. 08/27/22 07:55 Blood - Venous Blood Culture - Final No growth after 5 days. 08/25/22 19:40 Blood - Venous Blood Culture - Final Staphylococcus epidermidis 08/25/22 19:40 Blood - Venous Blood Culture - Final Staphylococcus epidermidis Procedures Date of Service Date of Service: 09/16/22 Assessment & Plan Assessment and plan (1) Acute respiratory failure with hypoxia: Status: Acute (2) ESRD (end stage renal disease): Status: Acute Plan ESRD: TTS Pneunomina : reoslving REC: cont HD x/wk; d/c planning Time Spent With Patient Time: Total time managing care of this patient today ____ minutes. Progress Note: Quality Stroke Does the patient have a stroke diagnosis?: No
[2022-09-16 20:00] VITALS: BP 110/62; PULSE 61; RESP 18; TEMP 36.6; O2SAT 95
[2022-09-16 20:51] LABS: Glucose, Whole Blood 148 mg/dL (60-115)
--- NOTE | 2022-09-16 23:05 | P.CNID_ITS ---
History of Present Illness Data of Consult Service Date: 09/15/22 Requesting physician: Krunal Arrington Primary Care Provider: MD ANGELA Banerjee Reason for consult: staph epi bacteremia He presents with dyspnea for a day. He has no fever or chills. He has HD He has staph epi bacteremia,cleared. Review of Systems Review of Systems: Yes all other systems are reviewed and are negative PMFSH Past Medical History Medical History Anemia Atherosclerotic cardiovascular disease Bacteremia due to Staphylococcus Chronic heart failure with preserved ejection fraction Chronic kidney disease, unspecified CKD (chronic kidney disease) ESRD (end stage renal disease) on dialysis Essential hypertension PAF (paroxysmal atrial fibrillation) Toxic metabolic encephalopathy Type 2 diabetes mellitus with unspecified complications Family History Family History Father Esophageal cancer Mother Diabetes Hypertension Family history: reviewed and not pertinent Surgical History Surgical History History of cardiac catheterization (~07/18/20) History of colon resection Social History Social History Household Members: None Housing: Apartment Housing Other:: elderly housing Do you presently have visiting nurse or other home services: Yes Unable to assess alcohol history related to: Unknown Alcohol intake: never Patient Tobacco Use Status: Never used Tobacco Second Hand Smoke Exposure: No Advance Directives Date on File: 09/21/21 service: No Current occupational status: unemployed Meds Allergies Allergy/AdvReac Type Severity Reaction Status Date / Time No Known Allergies Allergy Verified 04/08/22 17:45 Active Medications: Current Medications Acetaminophen (Acetaminophen 325 Mg Tablet) 650 mg PO Q6H PRN PRN Reason: Pain, Mild (Pain Scale 1-3) Amiodarone HCl (Amiodarone Hcl 200 Mg Tablet) 200 mg PO DAILY [facility] Last Admin: 09/16/22 08:21 Dose: 200 mg Apixaban (Apixaban 2.5 Mg Tablet) 2.5 mg PO BID [facility] Last Admin: 09/16/22 21:41 Dose: 2.5 mg Atorvastatin Calcium (Atorvastatin Calcium 80 Mg Tablet) 80 mg PO BEDTIME [facility] Last Admin: 08/25/22 21:41 Dose: 80 mg Bumetanide (Bumetanide 1 Mg Tablet) 1 mg PO BIDWM [facility]; Protocol Last Admin: 09/16/22 16:45 Dose: Not Given Carvedilol (Carvedilol 3.125 Mg Tablet) 3.125 mg PO BID [facility]; Protocol Last Admin: 09/16/22 21:41 Dose: 3.125 mg Fluoxetine HCl (Fluoxetine Hcl 20 Mg Capsule) 20 mg PO DAILY [facility] Last Admin: 09/16/22 08:21 Dose: 20 mg Glucose (Glucose Gel 15 Gm Gel..Gram.) 15 gm PO Q15M PRN; Protocol PRN Reason: per Hypoglycemia Standing Ord. Dextrose (D10) 250 mls @ 750 mls/hr IV Q15M PRN PRN Reason: per Hypoglycemia Standing Ord. Insulin Glargine (Insulin Glargine,Hum.Rec.Anlog 100 Unit/Ml 10 Ml Vial) 10 unit SUBCUT DAILY [facility] Last Admin: 09/16/22 08:23 Dose: 10 unit Insulin Human Lispro (Insulin Lispro 100 Unit/Ml 3 Ml Vial) 0 unit SUBCUT QIDACHS [facility]; Protocol Last Admin: 09/16/22 21:42 Dose: Not Given Melatonin (Melatonin 3 Mg Tablet) 6 mg PO BEDTIME PRN PRN Reason: Insomnia Ondansetron HCl (Ondansetron Hcl 4 Mg/2 Ml Vial) 4 mg IVPUSH Q8H PRN PRN Reason: Nausea and Vomiting Pharmacy Consult (Consult Rx Perform Med Rec) 1 each MISCELLANE ONCE PRN PRN Reason: Consult order Sodium Chloride (0.9 % Sodium Chloride Flush 3 Ml Syringe) 3 ml IVFLUSH QSHIFT [facility] Last Admin: 09/16/22 21:41 Dose: 3 ml Vitamin D (Cholecalciferol (Vitamin D3) 25 Mcg Tablet) 50 mcg PO DAILY [facility] Last Admin: 09/16/22 08:21 Dose: 50 mcg Home Medications Medication Instructions Recorded Confirmed Last Taken Type amiodarone 200 mg tablet 1 tab PO DAILY 02/20/22 08/25/22 08/25/22 History apixaban 5 mg tablet (Eliquis) 1 tab PO BID 02/20/22 08/25/22 08/25/22 History bumetanide 1 mg tablet 1 tab PO BIDWM 08/08/25/22 08/25/22 History carvedilol 3.125 mg tablet 1 tab PO BID 02/20/22 08/25/22 08/25/22 History cholecalciferol (vitamin D3) 50 1 tab PO DAILY 02/20/22 08/25/22 08/25/22 Histor y mcg (2,000 unit) tablet insulin aspart U-100 100 unit/mL See Protocol subcut QIDACHS 02/20/22 08/25/22 08/25/22 History (3 mL) subcutaneous pen (Novolog FlexPen U-100 Insulin aspart) insulin glargine 100 unit/mL (3 12 unit subcut DAILY 02/20/22 08/25/22 08/25/22 History mL) subcutaneous pen (Lantus Solostar U-100 Insulin) fluoxetine 20 mg capsule 1 cap PO DAILY 05/01/22 08/25/22 08/25/22 History Physical Exam Vital Signs: Vital Signs: Last Vital Signs Temp 97.8 F 09/16/22 20:00 Pulse 61 09/16/22 20:00 Resp 18 09/16/22 20:00 BP 110/62 09/16/22 20:00 Pulse Ox 95 09/16/22 20:00 O2 Del Method 09/16/22 20:00 O2 Flow Rate 2.0 08/27/22 07:58 Oxygen Flow Rate 2 08/25/22 17:41 BMI result Body Mass Index 22.6 Const: General: cooperative HEENT: Head: Yes normal to inspection Face and sinus: Yes normal facial exam Mouth: Normal oral and palatal mucosa present Teeth and gingiva: dentition normal Eyes: General: appearance normal, both eyes and all related structures Pupils: Equal, round and reactive pupils present Resp: Effort & Inspection: normal respiratory effort Cardio: Rate: regular rate Rhythm: regular rhythm GI: Palpation (GI): Soft to palpation and nontender : General: Yes no CVA tenderness Back/Spine/Pelvis: Back: no CVA tenderness Skin: General skin exam: no rashes or lesions noted Neuro: General: moves all extremities Cranial nerves: Yes Equal, round and reactive pupils present Extrem: General: Yes normal to inspection Psych: Appearance: grossly normal Results Labs 09/11/22 06:02 09/12/22 09:35 Microbiology Microbiology Results: Microbiology 08/27/22 08:02 Blood - Venous Blood Culture - Final No growth after 5 days. 08/27/22 07:55 Blood - Venous Blood Culture - Final No growth after 5 days. 08/25/22 19:40 Blood - Venous Blood Culture - Final Staphylococcus epidermidis 08/25/22 19:40 Blood - Venous Blood Culture - Final Staphylococcus epidermidis Assessment and Plan (1) ESRD (end stage renal disease): Status: Acute (2) Type 2 diabetes mellitus with unspecified complications: Status: Acute (3) Bacteremia due to Staphylococcus: Status: Acute He has staph epi now resolved He has probable contaminant but responded Vancomycin Plan No further antibiotics at this time Follow clinically. Time Spent With Patient Time: Total time managing care of this patient today ____ minutes.
[2022-09-17 02:38] VITALS: BP 129/73; PULSE 63; RESP 17; TEMP 36.4; O2SAT 94
[2022-09-17 07:19] LABS: Glucose, Whole Blood 77 mg/dL (60-115)
[2022-09-17 07:28] VITALS: BP 132/75; PULSE 65; RESP 16; TEMP 36.6; O2SAT 95
[2022-09-17] MEDS: Bumetanide 1 MG TABLET PO ×2 (08:29→17:51)
[2022-09-17] MEDS: Amiodarone HCL 200 MG TABLET PO (08:30)
[2022-09-17] MEDS: 0.9 % Sodium Chloride Flush 3 ML SYRINGE IVFLUSH ×2 (08:30→17:52)
[2022-09-17] MEDS: Apixaban 2.5 MG TABLET PO ×2 (08:30→21:47)
[2022-09-17] MEDS: Insulin Glargine,Hum.rec.anlog 100 UNIT/ML 10 ML VIAL 10 UNIT SUBCUT (08:30)
[2022-09-17] MEDS: Cholecalciferol (Vitamin D3) 25 MCG TABLET 50 MCG PO (08:30)
[2022-09-17] MEDS: FLUoxetine HCl 20 MG CAPSULE PO (08:30)
[2022-09-17] MEDS: carvediloL 3.125 MG TABLET PO ×2 (08:30→21:47)
[2022-09-17 09:58] VITALS: BP 132/75; PULSE 65; O2SAT 95
[2022-09-17 11:39] LABS: Glucose, Whole Blood 170 mg/dL (60-115)
[2022-09-17] MEDS: Insulin Lispro 100 UNIT/ML 3 ML VIAL SUBCUT (11:50)
--- NOTE | 2022-09-17 12:34 | MHC.CM.PN ---
CM continues to follow patient for placement. Message sent to [facility] for update on potential bed offer, awaiting response.
--- NOTE | 2022-09-17 13:16 | HO.PM.IMPN ---
Subjective Subjective Date of Service: 09/17/22 Interval History: No acute issues overnight. Remains tolerant of dialysis Review of Systems Unable to obtain Physical Exam Vital Signs: Vital Signs: Last Vital Signs Temp 97.9 F 09/17/22 07:28 Pulse 65 09/17/22 09:58 Resp 16 09/17/22 07:28 BP 132/75 09/17/22 09:58 Pulse Ox 95 09/17/22 09:58 O2 Del Method 09/17/22 07:28 O2 Flow Rate 2.0 08/27/22 07:58 Oxygen Flow Rate 2 08/25/22 17:41 BMI result Body Mass Index 22.6 Const: Other: Awake alert intermittently confused Resp: Other: Diminished left base with scant crackles Cardio: Other: No S4; positive S1-S2; no S3 murmurs rubs gallops GI: Other: Soft nontender nondistended normoactive bowel sounds Extrem: Other: No edema bilaterally Objective Data Active Medications Acetaminophen (Acetaminophen 325 Mg Tablet) 650 mg PO Q6H PRN PRN Reason: Pain, Mild (Pain Scale 1-3) Amiodarone HCl (Amiodarone Hcl 200 Mg Tablet) 200 mg PO DAILY [facility] Last Admin: 09/17/22 08:30 Dose: 200 mg Documented By: JULIEN Apixaban (Apixaban 2.5 Mg Tablet) 2.5 mg PO BID [facility] Last Admin: 09/17/22 08:30 Dose: 2.5 mg Documented By: JULIEN Atorvastatin Calcium (Atorvastatin Calcium 80 Mg Tablet) 80 mg PO BEDTIME [facility] Last Admin: 08/25/22 21:41 Dose: 80 mg Documented By: MADDENL Bumetanide (Bumetanide 1 Mg Tablet) 1 mg PO BIDWM [facility]; Protocol Last Admin: 09/17/22 08:29 Dose: 1 mg Documented By: JULIEN Carvedilol (Carvedilol 3.125 Mg Tablet) 3.125 mg PO BID [facility]; Protocol Last Admin: 09/17/22 08:30 Dose: 3.125 mg Documented By: JULIEN Fluoxetine HCl (Fluoxetine Hcl 20 Mg Capsule) 20 mg PO DAILY [facility] Last Admin: 09/17/22 08:30 Dose: 20 mg Documented By: JULIEN Glucose (Glucose Gel 15 Gm Gel..Gram.) 15 gm PO Q15M PRN; Protocol PRN Reason: per Hypoglycemia Standing Ord. Dextrose (D10) 250 mls @ 750 mls/hr IV Q15M PRN PRN Reason: per Hypoglycemia Standing Ord. Insulin Glargine (Insulin Glargine,Hum.Rec.Anlog 100 Unit/Ml 10 Ml Vial) 10 unit SUBCUT DAILY [facility] Last Admin: 09/17/22 08:30 Dose: 10 unit Documented By: JULIEN Insulin Human Lispro (Insulin Lispro 100 Unit/Ml 3 Ml Vial) 0 unit SUBCUT QIDACHS [facility]; Protocol Last Admin: 09/17/22 11:50 Dose: 2 unit Documented By: JULIEN Melatonin (Melatonin 3 Mg Tablet) 6 mg PO BEDTIME PRN PRN Reason: Insomnia Ondansetron HCl (Ondansetron Hcl 4 Mg/2 Ml Vial) 4 mg IVPUSH Q8H PRN PRN Reason: Nausea and Vomiting Pharmacy Consult (Consult Rx Perform Med Rec) 1 each MISCELLANE ONCE PRN PRN Reason: Consult order Sodium Chloride (0.9 % Sodium Chloride Flush 3 Ml Syringe) 3 ml IVFLUSH QSHIFT [facility] Last Admin: 09/17/22 08:30 Dose: 3 ml Documented By: JULIEN Vitamin D (Cholecalciferol (Vitamin D3) 25 Mcg Tablet) 50 mcg PO DAILY [facility] Last Admin: 09/17/22 08:30 Dose: 50 mcg Documented By: JULIEN Labs 09/11/22 06:02 09/12/22 09:35 Labs: Laboratory Results - last 24 hr 09/16/22 09/16/22 09/16/22 13:20 16:37 20:39 POC Glucose 105 152 H 148 H 09/17/22 09/17/22 07:08 11:05 POC Glucose 77 170 H Assessment and Plan (1) ESRD (end stage renal disease): Status: Acute Plan This is a 67-year-old male with pertinent history of ESRD on hemodialysis, coronary artery disease with ischemic cardiomyopathy and congestive heart failure with reduced ejection fraction, insulin-dependent diabetes mellitus, paroxysmal atrial fibrillation on Eliquis, mood disorder who presents to the emergency department for evaluation of dyspnea. Found to have left lower no pneumonia 1.Acute hypoxemic respiratory failure secondary to community-acquired pneumonia... Resolved -wean O2 as tolerated 2. Staph epidermis bacteremia -repeat cultures negative x5 days 3.Elevated LFTs -trending downward -HIDA negative -no surgical indication per surgery 4.Toxic metabolic encephalopathy -slowly improving... likely new baseline -will need placement; family elusive 5.ESRD on hemodialysis -HD Tuesday -follow renals/divalents 6.Insulin-dependent diabetes mellitus: -acceptable control on current therapies -Lantus as ordered/lispro correctional scale -adjust as indicated 7.Paroxysmal atrial fibrillation continue Eliquis and amiodarone Eliquis Full code DISPO Plan for STR when bed available; continued admit for safe placement Time Spent With Patient Time: Total time managing care of this patient today ____ minutes. Quality Stroke Does the patient have a stroke diagnosis?: No VTE Prior VTE?: No VTE Risk Level:: Medical - moderate - high VTE Device Contraindication: Treatment Not Indicated VTE Drug Contraindication: N/A - Med Ordered
--- NOTE | 2022-09-17 15:54 | P.PNNP_ITS ---
Subjective Subjective Date of Service: 09/17/22 Interval history: No acute issues overnight. Remains tolerant of dialysis Physical Exam Vital Signs: Vital Signs: Last Vital Signs Temp 97.9 F 09/17/22 07:28 Pulse 65 09/17/22 09:58 Resp 16 09/17/22 07:28 BP 132/75 09/17/22 09:58 Pulse Ox 95 09/17/22 09:58 O2 Del Method 09/17/22 07:28 O2 Flow Rate 2.0 08/27/22 07:58 Oxygen Flow Rate 2 08/25/22 17:41 BMI result Body Mass Index 22.6 Const: Other: Awake alert intermittently confused General: cooperative, healthy appearing, comfortable, no acute distress, alert and awake Nutritional Appearance: average body habitus and thin Orientation/consciousness: oriented to person, oriented to place and patient oriented x3 HEENT: Head: Yes normal to inspection, Yes normocephalic and Yes atraumatic Face and sinus: Yes normal facial exam Mouth: Normal oral and palatal mucosa present Teeth and gingiva: dentition normal Eyes: General: appearance normal, both eyes and all related structures Eyelids: Yes eyelids normal Conjunctivae: conjunctivae normal Sclerae: sc lerae normal Corneas: corneas normal Pupils: Equal, round and reactive pupils present EOM: EOMs intact bilaterally Neck: Neck: Yes supple Resp: Other: Diminished left base with scant crackles Effort & Inspection: normal respiratory effort, able to speak in complete sentences, no audible wheezes, not labored, no respiratory distress and no use of accessory muscles Auscultation: clear to auscultation bilaterally and diminished lung sounds Cardio: Other: No S4; positive S1-S2; no S3 murmurs rubs gallops Rate: regular rate Rhythm: regular rhythm Heart sounds: S1 normal heart sound present and S2 normal heart sound present GI: Other: Soft nontender nondistended normoactive bowel sounds Inspection: No distended Palpation (GI): Soft to palpation, nontender, no guarding and not rigid : General: Yes no CVA tenderness Back/Spine/Pelvis: Back: no CVA tenderness Skin: General skin exam: no rashes or lesions noted and elasticity normal Lesions: no lesions Rashes: no rashes Neuro: General: oriented to person, oriented to place, patient oriented x3 and moves all extremities Cranial nerves: Yes Equal, round and reactive pupils present and Yes Midline tongue present Extrem: Other: No edema bilaterally General: Yes normal to inspection, Yes full ROM and Yes no pedal edema Psych: Appearance: grossly normal Objective Data Labs 09/11/22 06:02 09/12/22 09:35 Labs: Laboratory Results - last 24 hr 09/16/22 09/16/22 09/17/22 16:37 20:39 07:08 POC Glucose 152 H 148 H 77 09/17/22 11:05 POC Glucose 170 H Microbiology Microbiology Results: Microbiology 08/27/22 08:02 Blood - Venous Blood Culture - Final No growth after 5 days. 08/27/22 07:55 Blood - Venous Blood Culture - Final No growth after 5 days. 08/25/22 19:40 Blood - Venous Blood Culture - Final Staphylococcus epidermidis 08/25/22 19:40 Blood - Venous Blood Culture - Final Staphylococcus epidermidis Procedures Date of Service Date of Service: 09/17/22 Assessment & Plan Assessment and plan (1) Acute respiratory failure with hypoxia: Status: Acute (2) ESRD (end stage renal disease): Status: Acute Plan ESRD: TTS Pneunomina : reoslving REC: cont HD x/wk; HD in AM d/c planning Time Spent With Patient Time: Total time managing care of this patient today ____ minutes. Progress Note: Quality Stroke Does the patient have a stroke diagnosis?: No
[2022-09-17 16:00] VITALS: BP 111/64; PULSE 61; RESP 16; TEMP 36.6; O2SAT 97
[2022-09-17 16:33] LABS: Glucose, Whole Blood 101 mg/dL (60-115)
[2022-09-17 19:43] VITALS: BP 117/67; PULSE 62; RESP 18; TEMP 36.6; O2SAT 96
[2022-09-17 21:49] LABS: Glucose, Whole Blood 105 mg/dL (60-115)
[2022-09-18] MEDS: 0.9 % Sodium Chloride Flush 3 ML SYRINGE IVFLUSH ×4 (00:27→21:27)
[2022-09-18 03:47] VITALS: BP 150/90; PULSE 63; RESP 16; TEMP 36; O2SAT 100
[2022-09-18 07:42] VITALS: BP 136/73; PULSE 63; RESP 18; TEMP 36.4; O2SAT 93
[2022-09-18 08:15] LABS: Glucose, Whole Blood 83 mg/dL (60-115)
[2022-09-18] MEDS: Bumetanide 1 MG TABLET PO ×2 (08:34→16:56)
[2022-09-18] MEDS: Cholecalciferol (Vitamin D3) 25 MCG TABLET 50 MCG PO (08:34)
[2022-09-18] MEDS: Apixaban 2.5 MG TABLET PO ×2 (08:34→21:26)
[2022-09-18] MEDS: Amiodarone HCL 200 MG TABLET PO (08:34)
[2022-09-18] MEDS: FLUoxetine HCl 20 MG CAPSULE PO (08:34)
[2022-09-18] MEDS: carvediloL 3.125 MG TABLET PO ×2 (08:34→21:26)
[2022-09-18] MEDS: Insulin Glargine,Hum.rec.anlog 100 UNIT/ML 10 ML VIAL 10 UNIT SUBCUT (08:35)
--- NOTE | 2022-09-18 12:00 | HO.PM.IMPN ---
Subjective Subjective Date of Service: 09/18/22 Interval History: This history was taken in [place] from the patient. Denies any complaints Review of Systems Review of Systems: Yes all other systems are reviewed and are negative Physical Exam Vital Signs: Vital Signs: Last Vital Signs Temp 97.5 F 09/18/22 07:42 Pulse 63 09/18/22 07:42 Resp 18 09/18/22 07:42 BP 136/73 09/18/22 07:42 Pulse Ox 93 09/18/22 07:42 O2 Del Method 09/18/22 07:42 O2 Flow Rate 2.0 08/27/22 07:58 Oxygen Flow Rate 2 08/25/22 17:41 BMI result Body Mass Index 22.6 Gen: in no acute distress HEENT: sclera anicteric, moist mucus membranes Neck: supple, L SC HD catheter intact Lungs: clear to auscultation bilaterally Heart: regular rate and rhythm, no murmurs Abd: soft, non-tender, non-distended Ext: no edema Skin: warm/well-perfused Neuro: alert, mildly confused Psych: appropriate affect Objective Data Active Medications Acetaminophen (Acetaminophen 325 Mg Tablet) 650 mg PO Q6H PRN PRN Reason: Pain, Mild (Pain Scale 1-3) Amiodarone HCl (Amiodarone Hcl 200 Mg Tablet) 200 mg PO DAILY [facility] Last Admin: 09/18/22 08:34 Dose: 200 mg Documented By: YARELIS Apixaban (Apixaban 2.5 Mg Tablet) 2.5 mg PO BID [facility] Last Admin: 09/18/22 08:34 Dose: 2.5 mg Documented By: YARELIS Atorvastatin Calcium (Atorvastatin Calcium 80 Mg Tablet) 80 mg PO BEDTIME [facility] Last Admin: 08/25/22 21:41 Dose: 80 mg Documented By: MADDENL Bumetanide (Bumetanide 1 Mg Tablet) 1 mg PO BIDWM [facility]; Protocol Last Admin: 09/18/22 08:34 Dose: 1 mg Documented By: YARELIS Carvedilol (Carvedilol 3.125 Mg Tablet) 3.125 mg PO BID [facility]; Protocol Last Admin: 09/18/22 08:34 Dose: 3.125 mg Documented By: YARELIS Fluoxetine HCl (Fluoxetine Hcl 20 Mg Capsule) 20 mg PO DAILY [facility] Last Admin: 09/18/22 08:34 Dose: 20 mg Documented By: YARELIS Glucose (Glucose Gel 15 Gm Gel..Gram.) 15 gm PO Q15M PRN; Protocol PRN Reason: per Hypoglycemia Standing Ord. Dextrose (D10) 250 mls @ 750 mls/hr IV Q15M PRN PRN Reason: per Hypoglycemia Standing Ord. Insulin Glargine (Insulin Glargine,Hum.Rec.Anlog 100 Unit/Ml 10 Ml Vial) 10 unit SUBCUT DAILY [facility] Last Admin: 09/18/22 08:35 Dose: 10 unit Documented By: YARELIS Insulin Human Lispro (Insulin Lispro 100 Unit/Ml 3 Ml Vial) 0 unit SUBCUT QIDACHS [facility]; Protocol Last Admin: 09/18/22 11:26 Dose: Not Given Documented By: YARELIS Non-Admin Reason: Off unit: Dialysis Melatonin (Melatonin 3 Mg Tablet) 6 mg PO BEDTIME PRN PRN Reason: Insomnia Ondansetron HCl (Ondansetron Hcl 4 Mg/2 Ml Vial) 4 mg IVPUSH Q8H PRN PRN Reason: Nausea and Vomiting Pharmacy Consult (Consult Rx Perform Med Rec) 1 each MISCELLANE ONCE PRN PRN Reason: Consult order Sodium Chloride (0.9 % Sodium Chloride Flush 3 Ml Syringe) 3 ml IVFLUSH QSHIFT [facility] Last Admin: 09/18/22 08:34 Dose: 3 ml Documented By: YARELIS Vitamin D (Cholecalciferol (Vitamin D3) 25 Mcg Tablet) 50 mcg PO DAILY [facility] Last Admin: 09/18/22 08:34 Dose: 50 mcg Documented By: YARELIS Labs 09/11/22 06:02 09/12/22 09:35 Labs: Laboratory Results - last 24 hr 09/17/22 09/17/22 09/18/22 16:25 21:35 07:44 POC Glucose 101 105 83 Assessment and Plan (1) ESRD (end stage renal disease): Status: Acute Plan d#25 67 year-old male with ESRD on hemodialysis, coronary artery disease with ischemic cardiomyopathy and congestive heart failure with reduced ejection fraction, insulin-dependent diabetes mellitus, paroxysmal atrial fibrillation on Eliquis, and mood disorder who presented to the emergency department for evaluation of dyspnea and was admitted for left lower lobe PNA # acute hypoxic resp failure due to CAP - resolved, no longer hypoxic, completed ABX - not bacteremic, had coag-neg Staph in 2/2 sets which was attributed to contamination # elevated LFTs - largely resolved, HIDA negative, no surgical indication, probably had some degree of hepatitis from the pneumonia # toxic metabolic encephalopathy - slowly improving; likely new baseline - will need placement; family elusive # hypoNa - improved after HD, HD TuTuSa, recheck BMP in AM # hyperK - resolved p HD, recheck BMP in AM # ESRD on hemodialysis - HD TuThSa # DM2 - basal-bolus insulin # paroxysmal AF - continue carvedilol - continue amiodarone - continue apixaban # chronic HFpEF - continue carvedilol, bumetanide # mood disorder - continue fluoxetine # VTE ppx: apixaban # dispo: STR pending placement In my clinical judgment, the patient requires continued inpatient hospitalization for the following reasons: safe placement Time Spent With Patient Time: Total time managing care of this patient today _25___ minutes. Quality Stroke Does the patient have a stroke diagnosis?: No VTE Prior VTE?: No VTE Risk Level:: Medical - moderate - high VTE Device Contraindication: Treatment Not Indicated VTE Drug Contraindication: N/A - Med Ordered
[2022-09-18 14:40] VITALS: BP 116/62; PULSE 57; TEMP 36.6; O2SAT 94
[2022-09-18 15:15] VITALS: BP 100/58; PULSE 59; RESP 16; TEMP 36.2; O2SAT 94
[2022-09-18 16:39] VITALS: BP 104/61; PULSE 56
[2022-09-18 16:45] LABS: Glucose, Whole Blood 136 mg/dL (60-115)
[2022-09-18 20:49] LABS: Glucose, Whole Blood 197 mg/dL (60-115)
[2022-09-18] MEDS: Insulin Lispro 100 UNIT/ML 3 ML VIAL SUBCUT (21:26)
--- NOTE | 2022-09-18 21:47 | PM.PNNEP ---
Subjective Subjective Date of Service: 09/18/22 Interval history: Seen on HD Denies any complaints Physical Exam Vital Signs: Vital Signs: Last Vital Signs Temp 97.2 F 09/18/22 15:15 Pulse 56 09/18/22 16:39 Resp 16 09/18/22 15:15 BP 104/61 09/18/22 16:39 Pulse Ox 94 09/18/22 15:15 O2 Del Method 09/18/22 15:15 O2 Flow Rate 2.0 08/27/22 07:58 Oxygen Flow Rate 2 08/25/22 17:41 BMI result Body Mass Index 22.6 Objective Data Labs 09/11/22 06:02 09/12/22 09:35 Labs: Laboratory Results - last 24 hr 09/17/22 09/18/22 09/18/22 21:35 07:44 16:30 POC Glucose 105 83 136 H 09/18/22 20:29 POC Glucose 197 H Microbiology Microbiology Results: Microbiology 08/27/22 08:02 Blood - Venous Blood Culture - Final No growth after 5 days. 08/27/22 07:55 Blood - Venous Blood Culture - Final No growth after 5 days. 08/25/22 19:40 Blood - Venous Blood Culture - Final Staphylococcus epidermidis 08/25/22 19:40 Blood - Venous Blood Culture - Final Staphylococcus epidermidis Procedures Date of Service Date of Service: 09/18/22 Assessment & Plan Assessment and plan (1) Acute respiratory failure with hypoxia: Status: Acute (2) ESRD (end stage renal disease): Status: Acute Plan ESRD: TTS Pneunomina : reoslving REC: cont HD x/wk; Continue HD today Vol Removal as tolerated d/c planning Time Spent With Patient Time: Total time managing care of this patient today ____ minutes. Progress Note: Quality Stroke Does the patient have a stroke diagnosis?: No
[2022-09-19] VITALS: BP 138/77; PULSE 69; RESP 16; TEMP 36.2; O2SAT 93
[2022-09-19 06:51] LABS: Anion Gap 18 (12-20); Blood Urea Nitrogen 40 mg/dL (9-16); Calcium 8.5 mg/dL (8.4-10.2); Carbon Dioxide 20 mmol/L (22-29); Chloride 95 mmol/L (96-108); Creatinine Clr Calc Pharmacy 13.4; Estimated Glomerular Filt Rate 15; Glucose Random 81 mg/dL (60-115); Potassium 4.8 mmol/L (3.3-5.1); Sodium 128 mmol/L (135-145)
[2022-09-19 07:22] LABS: Glucose, Whole Blood 88 mg/dL (60-115)
[2022-09-19 07:52] VITALS: BP 111/68; PULSE 69; RESP 18; TEMP 36.8; O2SAT 96
[2022-09-19] MEDS: FLUoxetine HCl 20 MG CAPSULE PO (09:46)
[2022-09-19] MEDS: carvediloL 3.125 MG TABLET PO ×2 (09:46→21:25)
[2022-09-19] MEDS: Bumetanide 1 MG TABLET PO ×2 (09:46→17:15)
[2022-09-19] MEDS: Cholecalciferol (Vitamin D3) 25 MCG TABLET 50 MCG PO (09:46)
[2022-09-19] MEDS: Apixaban 2.5 MG TABLET PO ×2 (09:46→21:25)
[2022-09-19] MEDS: Amiodarone HCL 200 MG TABLET PO (09:46)
[2022-09-19] MEDS: Insulin Glargine,Hum.rec.anlog 100 UNIT/ML 10 ML VIAL 10 UNIT SUBCUT (09:47)
[2022-09-19] MEDS: 0.9 % Sodium Chloride Flush 3 ML SYRINGE IVFLUSH ×3 (09:47→21:26)
[2022-09-19 11:12] LABS: Glucose, Whole Blood 178 mg/dL (60-115)
--- NOTE | 2022-09-19 11:45 | HO.PM.IMPN ---
Subjective Subjective Date of Service: 09/19/22 Interval History: This history was taken in [place] from the patient. Denies any complaints. No dyspnea or cough. No fever. Review of Systems Review of Systems: Yes all other systems are reviewed and are negative Physical Exam Vital Signs: Vital Signs: Last Vital Signs Temp 98.2 F 09/19/22 07:52 Pulse 69 09/19/22 07:52 Resp 18 09/19/22 07:52 BP 111/68 09/19/22 07:52 Pulse Ox 96 09/19/22 07:52 O2 Del Method 09/19/22 07:52 O2 Flow Rate 2.0 08/27/22 07:58 Oxygen Flow Rate 2 08/25/22 17:41 BMI result Body Mass Index 22.6 Gen: in no acute distress HEENT: sclera anicteric, moist mucus membranes Neck: supple, L SC HD catheter intact Lungs: clear to auscultation bilaterally Heart: regular rate and rhythm, no murmurs Abd: soft, non-tender, non-distended Ext: no edema Skin: warm/well-perfused Neuro: alert, mildly confused Psych: appropriate affect ? Objective Data Active Medications Acetaminophen (Acetaminophen 325 Mg Tablet) 650 mg PO Q6H PRN PRN Reason: Pain, Mild (Pain Scale 1-3) Amiodarone HCl (Amiodarone Hcl 200 Mg Tablet) 200 mg PO DAILY [facility] Last Admin: 09/19/22 09:46 Dose: 200 mg Documented By: LEONIDAS Apixaban (Apixaban 2.5 Mg Tablet) 2.5 mg PO BID [facility] Last Admin: 09/19/22 09:46 Dose: 2.5 mg Documented By: LEONIDAS Atorvastatin Calcium (Atorvastatin Calcium 80 Mg Tablet) 80 mg PO BEDTIME [facility] Last Admin: 08/25/22 21:41 Dose: 80 mg Documented By: MADDENL Bumetanide (Bumetanide 1 Mg Tablet) 1 mg PO BIDWM [facility]; Protocol Last Admin: 09/19/22 09:46 Dose: 1 mg Documented By: LEONIDAS Carvedilol (Carvedilol 3.125 Mg Tablet) 3.125 mg PO BID [facility]; Protocol Last Admin: 09/19/22 09:46 Dose: 3.125 mg Documented By: LEONIDAS Fluoxetine HCl (Fluoxetine Hcl 20 Mg Capsule) 20 mg PO DAILY [facility] Last Admin: 09/19/22 09:46 Dose: 20 mg Documented By: LEONIADS Glucose (Glucose Gel 15 Gm Gel..Gram.) 15 gm PO Q15M PRN; Protocol PRN Reason: per Hypoglycemia Standing Ord. Dextrose (D10) 250 mls @ 750 mls/hr IV Q15M PRN PRN Reason: per Hypoglycemia Standing Ord. Insulin Glargine (Insulin Glargine,Hum.Rec.Anlog 100 Unit/Ml 10 Ml Vial) 10 unit SUBCUT DAILY [facility] Last Admin: 09/19/22 09:47 Dose: 10 unit Documented By: LEONIDAS Insulin Human Lispro (Insulin Lispro 100 Unit/Ml 3 Ml Vial) 0 unit SUBCUT QIDACHS [facility]; Protocol Last Admin: 09/19/22 07:35 Dose: Not Given Documented By: LEONIDAS Non-Admin Reason: No Insulin Coverage Melatonin (Melatonin 3 Mg Tablet) 6 mg PO BEDTIME PRN PRN Reason: Insomnia Ondansetron HCl (Ondansetron Hcl 4 Mg/2 Ml Vial) 4 mg IVPUSH Q8H PRN PRN Reason: Nausea and Vomiting Pharmacy Consult (Consult Rx Perform Med Rec) 1 each MISCELLANE ONCE PRN PRN Reason: Consult order Sodium Chloride (0.9 % Sodium Chloride Flush 3 Ml Syringe) 3 ml IVFLUSH QSHIFT [facility] Last Admin: 09/19/22 09:47 Dose: 3 ml Documented By: LEONIDAS Vitamin D (Cholecalciferol (Vitamin D3) 25 Mcg Tablet) 50 mcg PO DAILY [facility] Last Admin: 09/19/22 09:46 Dose: 50 mcg Documented By: LEONIDAS Labs 09/11/22 06:02 09/19/22 05:34 Labs: Laboratory Results - last 24 hr 09/18/22 09/18/22 09/19/22 16:30 20:29 05:34 Anion Gap 18 Estim Creat Clear Calc 13.4 Estimated GFR 15 POC Glucose 136 H 197 H Random Glucose 81 Calcium 8.5 09/19/22 09/19/22 07:15 11:03 Anion Gap Estim Creat Clear Calc Estimated GFR POC Glucose 88 178 H Random Glucose Calcium Assessment and Plan (1) ESRD (end stage renal disease): Status: Acute Plan d#26 67 year-old male with ESRD on hemodialysis, coronary artery disease with ischemic cardiomyopathy and congestive heart failure with reduced ejection fraction, insulin-dependent diabetes mellitus, paroxysmal atrial fibrillation on Eliquis, and mood disorder who presented to the emergency department for evaluation of dyspnea and was admitted for left lower lobe PNA # acute hypoxic resp failure due to CAP - resolved, no longer hypoxic, completed ABX - not bacteremic, had coag-neg Staph in 2/2 sets which was attributed to contamination # elevated LFTs - largely resolved, HIDA negative, no surgical indication, probably had some degree of hepatitis from the pneumonia # toxic metabolic encephalopathy - slowly improving; likely new baseline - will need placement; family elusive # hypoNa - try to correct with HD -> next session Tu # hyperK - resolved p HD # ESRD on hemodialysis - HD TuThSa # DM2 - basal-bolus insulin # paroxysmal AF - continue carvedilol - continue amiodarone - continue apixaban # chronic HFpEF - continue carvedilol, bumetanide # mood disorder - continue fluoxetine # VTE ppx: apixaban # dispo: STR pending placement In my clinical judgment, the patient requires continued inpatient hospitalization for the following reasons: safe placement Time Spent With Patient Time: Total time managing care of this patient today ___25_ minutes. Quality Stroke Does the patient have a stroke diagnosis?: No VTE Prior VTE?: No VTE Risk Level:: Medical - moderate - high VTE Device Contraindication: Treatment Not Indicated VTE Drug Contraindication: N/A - Med Ordered
[2022-09-19] MEDS: Insulin Lispro 100 UNIT/ML 3 ML VIAL SUBCUT (11:49)
--- NOTE | 2022-09-19 12:46 | P.PNNP_ITS ---
Subjective Subjective Date of Service: 09/19/22 Interval history: Denies any complaints. No dyspnea or cough. No fever. Physical Exam Vital Signs: Vital Signs: Last Vital Signs Temp 98.2 F 09/19/22 07:52 Pulse 69 09/19/22 07:52 Resp 18 09/19/22 07:52 BP 111/68 09/19/22 07:52 Pulse Ox 96 09/19/22 07:52 O2 Del Method 09/19/22 07:52 O2 Flow Rate 2.0 08/27/22 07:58 Oxygen Flow Rate 2 08/25/22 17:41 BMI result Body Mass Index 22.6 Const: Other: Awake alert intermittently confused General: cooperative, healthy appearing, comfortable, no acute distress, alert and awake Nutritional Appearance: average body habitus and thin Orientation/consciousness: oriented to person, oriented to place and patient oriented x3 HEENT: Head: Yes normal to inspection, Yes normocephalic and Yes atraumatic Face and sinus: Yes normal facial exam Mouth: Normal oral and palatal mucosa present Teeth and gingiva: dentition normal Eyes: General: appearance normal, both eyes and all related structures Eyelids: Yes eyelids normal Conjunctivae: conjunctivae normal Sclerae: sclerae normal Corneas: corneas normal Pupils: Equal, round and reactive pupils present EOM: EOMs intact bilaterally Neck: Neck: Yes supple Resp: Other: Diminished left base with scant crackles Effort & Inspection: normal respiratory effort, able to speak in complete sentences, no audible wheezes, not labored, no respiratory distress and no use of accessory muscles Auscultation: clear to auscultation bilaterally and diminished lung sounds Cardio: Other: No S4; positive S1-S2; no S3 murmurs rubs gallops Rate: regular rate Rhythm: regular rhythm Heart sounds: S1 normal heart sound present and S2 normal heart sound present GI: Other: Soft nontender nondistended normoactive bowel sounds Inspection: No distended Palpation (GI): Soft to palpation, nontender, no guarding and not rigid : General: Yes no CVA tenderness Back/Spine/Pelvis: Back: no CVA tenderness Skin: General skin exam: no rashes or lesions noted and elasticity normal Lesions: no lesions Rashes: no rashes Neuro: General: oriented to person, oriented to place, patient oriented x3 and moves all extremities Cranial nerves: Yes Equal, round and reactive pupils present and Yes Midline tongue present Extrem: Other: No edema bilaterally General: Yes normal to inspection, Yes full ROM and Yes no pedal edema Psych: Appearance: grossly normal Objective Data Labs 09/11/22 06:02 09/19/22 05:34 Labs: Laboratory Results - last 24 hr 09/18/22 09/18/22 09/19/22 16:30 20:29 05:34 Sodium 128 L Potassium 4.8 Chloride 95 L Carbon Dioxide 20 L Anion Gap 18 BUN 40 H Creatinine 4.01 H* Estim Creat Clear Calc 13.4 Estimated GFR 15 POC Glucose 136 H 197 H Random Glucose 81 Calcium 8.5 09/19/22 09/19/22 07:15 11:03 Sodium Potassium Chloride Carbon Dioxide Anion Gap BUN Creatinine Estim Creat Clear Calc Estimated GFR POC Glucose 88 178 H Random Glucose Calcium Microbiology Microbiology Results: Microbiology 08/27/22 08:02 Blood - Venous Blood Culture - Final No growth after 5 days. 08/27/22 07:55 Blood - Venous Blood Culture - Final No growth after 5 days. 08/25/22 19:40 Blood - Venous Blood Culture - Final Staphylococcus epidermidis 08/25/22 19:40 Blood - Venous Blood Culture - Final Staphylococcus epidermidis Procedures Date of Service Date of Service: 09/19/22 Assessment & Plan Assessment and plan (1) Acute respiratory failure with hypoxia: Status: Acute (2) ESRD (end stage renal disease): Status: Acute Plan ESRD: TTS Pneunomina : reoslving REC: cont HD x/wk; TTS Vol Removal as tolerated d/c planning- Family not willing to [facility] D/w Medical team Time Spent With Patient Time: Total time managing care of this patient today ____ minutes. Progress Note: Quality Stroke Does the patient have a stroke diagnosis?: No
[2022-09-19 15:30] VITALS: BP 106/60; PULSE 62; RESP 16; TEMP 36.6; O2SAT 96
[2022-09-19 16:20] LABS: Glucose, Whole Blood 134 mg/dL (60-115)
[2022-09-19 17:18] VITALS: BP 127/70; PULSE 64; RESP 18
--- NOTE | 2022-09-19 17:22 | PC.NURSE ---
Assumed care of pt at 1500. Pt alert, able to make needs known. Pt resting comfortably in bed at this time. Needs met, all safety measures in place, VSS.
[2022-09-19] MEDS: Acetaminophen 325 MG TABLET 650 MG PO (18:39)
[2022-09-19 21:03] LABS: Glucose, Whole Blood 136 mg/dL (60-115)
[2022-09-19 23:33] VITALS: BP 118/71; PULSE 60; RESP 16; TEMP 36.2; O2SAT 96
[2022-09-20 07:14] VITALS: BP 132/80; PULSE 64; RESP 16; TEMP 36.5; O2SAT 97
[2022-09-20 07:50] LABS: Glucose, Whole Blood 102 mg/dL (60-115)
[2022-09-20] MEDS: carvediloL 3.125 MG TABLET PO ×2 (08:51→20:28)
[2022-09-20] MEDS: Apixaban 2.5 MG TABLET PO ×2 (08:51→20:29)
[2022-09-20] MEDS: FLUoxetine HCl 20 MG CAPSULE PO (08:51)
[2022-09-20] MEDS: Insulin Glargine,Hum.rec.anlog 100 UNIT/ML 10 ML VIAL 10 UNIT SUBCUT (08:51)
[2022-09-20] MEDS: Bumetanide 1 MG TABLET PO ×2 (08:51→16:33)
[2022-09-20] MEDS: Cholecalciferol (Vitamin D3) 25 MCG TABLET 50 MCG PO (08:51)
[2022-09-20] MEDS: Amiodarone HCL 200 MG TABLET PO (08:51)
[2022-09-20] MEDS: 0.9 % Sodium Chloride Flush 3 ML SYRINGE IVFLUSH ×3 (08:52→20:29)
[2022-09-20 11:09] LABS: Glucose, Whole Blood 143 mg/dL (60-115)
--- NOTE | 2022-09-20 11:27 | HO.PM.IMPN ---
Subjective Subjective Date of Service: 09/20/22 Interval History: This history was taken in Japanese from the patient. No complaints HD tomorrow Review of Systems Review of Systems: Yes all other systems are reviewed and are negative Physical Exam Vital Signs: Vital Signs: Last Vital Signs Temp 97.7 F 09/20/22 07:14 Pulse 64 09/20/22 07:14 Resp 16 09/20/22 07:14 BP 132/80 09/20/22 07:14 Pulse Ox 97 09/20/22 07:14 O2 Del Method 09/20/22 07:14 O2 Flow Rate 2.0 08/27/22 07:58 Oxygen Flow Rate 2 08/25/22 17:41 BMI result Body Mass Index 22.6 Gen: in no acute distress HEENT: sclera anicteric, moist mucus membranes Neck: supple, L SC HD catheter intact Lungs: clear to auscultation bilaterally Heart: regular rate and rhythm, no murmurs Abd: soft, non-tender, non-distended Ext: no edema Skin: warm/well-perfused Neuro: alert, mildly confused Psych: appropriate affect Objective Data Active Medications Acetaminophen (Acetaminophen 325 Mg Tablet) 650 mg PO Q6H PRN PRN Reason: Pain, Mild (Pain Scale 1-3) Last Admin: 09/19/22 18:39 Dose: 650 mg Documented By: IRVING Amiodarone HCl (Amiodarone Hcl 200 Mg Tablet) 200 mg PO DAILY COUNT INCLUDES THE [facility] Last Admin: 09/20/22 08:51 Dose: 200 mg Documented By: SOHAIL Apixaban (Apixaban 2.5 Mg Tablet) 2.5 mg PO BID COUNT INCLUDES THE [facility] Last Admin: 09/20/22 08:51 Dose: 2.5 mg Documented By: SOHAIL Atorvastatin Calcium (Atorvastatin Calcium 80 Mg Tablet) 80 mg PO BEDTIME COUNT INCLUDES THE [facility] Last Admin: 08/25/22 21:41 Dose: 80 mg Documented By: SHARAN Bumetanide (Bumetanide 1 Mg Tablet) 1 mg PO BIDWM COUNT INCLUDES THE [facility]; Protocol Last Admin: 09/20/22 08:51 Dose: 1 mg Documented By: SOHAIL Carvedilol (Carvedilol 3.125 Mg Tablet) 3.125 mg PO BID COUNT INCLUDES THE [facility]; Protocol Last Admin: 09/20/22 08:51 Dose: 3.125 mg Documented By: SOHAIL Fluoxetine HCl (Fluoxetine Hcl 20 Mg Capsule) 20 mg PO DAILY COUNT INCLUDES THE [facility] Last Admin: 09/20/22 08:51 Dose: 20 mg Documented By: SOHAIL Glucose (Glucose Gel 15 Gm Gel..Gram.) 15 gm PO Q15M PRN; Protocol PRN Reason: per Hypoglycemia Standing Ord. Dextrose (D10) 250 mls @ 750 mls/hr IV Q15M PRN PRN Reason: per Hypoglycemia Standing Ord. Insulin Glargine (Insulin Glargine,Hum.Rec.Anlog 100 Unit/Ml 10 Ml Vial) 10 unit SUBCUT DAILY COUNT INCLUDES THE [facility] Last Admin: 09/20/22 08:51 Dose: 10 unit Documented By: SOHAIL Insulin Human Lispro (Insulin Lispro 100 Unit/Ml 3 Ml Vial) 0 unit SUBCUT QIDACHS COUNT INCLUDES THE [facility]; Protocol Last Admin: 09/20/22 11:15 Dose: Not Given Documented By: SOHAIL Non-Admin Reason: No Insulin Coverage Melatonin (Melatonin 3 Mg Tablet) 6 mg PO BEDTIME PRN PRN Reason: Insomnia Ondansetron HCl (Ondansetron Hcl 4 Mg/2 Ml Vial) 4 mg IVPUSH Q8H PRN PRN Reason: Nausea and Vomiting Pharmacy Consult (Consult Rx Perform Med Rec) 1 each MISCELLANE ONCE PRN PRN Reason: Consult order Sodium Chloride (0.9 % Sodium Chloride Flush 3 Ml Syringe) 3 ml IVFLUSH QSHIFT COUNT INCLUDES THE [facility] Last Admin: 09/20/22 08:52 Dose: 3 ml Documented By: SOHAIL Vitamin D (Cholecalciferol (Vitamin D3) 25 Mcg Tablet) 50 mcg PO DAILY COUNT INCLUDES THE [facility] Last Admin: 09/20/22 08:51 Dose: 50 mcg Documented By: SOHAIL Labs 09/11/22 06:02 09/19/22 05:34 Labs: Laboratory Results - last 24 hr 09/19/22 09/19/22 09/20/22 16:11 20:48 07:15 POC Glucose 134 H 136 H 102 09/20/22 10:58 POC Glucose 143 H Assessment and Plan (1) ESRD (end stage renal disease): Status: Acute Plan d#27 67 year-old male with ESRD on hemodialysis, coronary artery disease with ischemic cardiomyopathy and congestive heart failure with reduced ejection fraction, insulin-dependent diabetes mellitus, paroxysmal atrial fibrillation on Eliquis, and mood disorder who presented to the emergency department for evaluation of dyspnea and was admitted for left lower lobe PNA # acute hypoxic resp failure due to CAP - resolved, no longer hypoxic, completed ABX - not bacteremic, had coag-neg Staph in 2/2 sets which was attributed to contamination # elevated LFTs - largely resolved, HIDA negative, no surgical indication, probably had some degree of hepatitis from the pneumonia # toxic metabolic encephalopathy - slowly improving; likely new baseline - will need placement; family elusive # hypoNa - try to correct with HD -> next session Tu # hyperK - resolved p HD # ESRD on hemodialysis - HD TuThSa # DM2 - basal-bolus insulin # paroxysmal AF - continue carvedilol - continue amiodarone - continue apixaban # chronic HFpEF - continue carvedilol, bumetanide # mood disorder - continue fluoxetine # VTE ppx: apixaban # dispo: STR pending placement In my clinical judgment, the patient requires continued inpatient hospitalization for the following reasons: safe placement Time Spent With Patient Time: Total time managing care of this patient today __25__ minutes. Quality Stroke Does the patient have a stroke diagnosis?: No VTE Prior VTE?: No VTE Risk Level:: Medical - moderate - high VTE Device Contraindication: Treatment Not Indicated VTE Drug Contraindication: N/A - Med Ordered
--- NOTE | 2022-09-20 13:23 | MHC.CLN ---
F/U DIET PER DIABETIC, RENAL PARAMETERS WITH DIALYSIS. DIET=DIABETIC 1800 KCAL, 2 GRAM SODIUM, LOW POTASSIUM, LOW PHOSPHORUS. FLUID RESTRICTION 1200 ML PER 24 HOURS DUE TO HYPONATREMIA. INTAKE MOST MEALS CONTINUES TO BE GOOD, 75-100%. CONTINUES DIALYSIS. FOLLOW INTAKE AND LABS. RD TO FOLLOW WEEKLY.
--- NOTE | 2022-09-20 15:48 | PM.PNNEP ---
Subjective Subjective Date of Service: 09/20/22 Interval history: No complaints. Due HD tomorrow Physical Exam Vital Signs: Vital Signs: Last Vital Signs Temp 97.7 F 09/20/22 07:14 Pulse 64 09/20/22 07:14 Resp 16 09/20/22 07:14 BP 132/80 09/20/22 07:14 Pulse Ox 97 09/20/22 07:14 O2 Del Method 09/20/22 07:14 O2 Flow Rate 2.0 08/27/22 07:58 Oxygen Flow Rate 2 08/25/22 17:41 BMI result Body Mass Index 22.6 Const: General: no acute distress Neck: Neck: Yes supple Resp: Auscultation: diminished lung sounds Cardio: Rate: regular rate GI: Palpation (GI): Soft to palpation Skin: General skin exam: no rashes or lesions noted Objective Data Labs 09/11/22 06:02 09/19/22 05:34 Labs: Laboratory Results - last 24 hr 09/19/22 09/19/22 09/20/22 16:11 20:48 07:15 POC Glucose 134 H 136 H 102 09/20/22 10:58 POC Glucose 143 H Microbiology Microbiology Results: Microbiology 08/27/22 08:02 Blood - Venous Blood Culture - Final No growth after 5 days. 08/27/22 07:55 Blood - Venous Blood Culture - Final No growth after 5 days. 08/25/22 19:40 Blood - Venous Blood Culture - Final Staphylococcus epidermidis 08/25/22 19:40 Blood - Venous Blood Culture - Final Staphylococcus epidermidis Procedures Date of Service Date of Service: 09/20/22 Assessment & Plan Assessment and plan (1) ESRD on dialysis: Status: Acute Assessment and Plan: ESRD: HD dependent Usually gets on TTS Vol Removal as tolerated Procrit 94305 Units tomorrow Low Potassium Diet Time Spent With Patient Time: Total time managing care of this patient today ____ minutes. Progress Note: Quality Stroke Does the patient have a stroke diagnosis?: No
[2022-09-20 16:00] VITALS: BP 124/69; PULSE 60; RESP 18; TEMP 36.1; O2SAT 99
[2022-09-20 16:30] LABS: Glucose, Whole Blood 108 mg/dL (60-115)
[2022-09-20 20:29] VITALS: BP 155/82; PULSE 61; RESP 18; TEMP 36.6; O2SAT 99
[2022-09-20 21:02] LABS: Glucose, Whole Blood 142 mg/dL (60-115)
[2022-09-20 23:34] VITALS: BP 141/80; PULSE 59; RESP 18; TEMP 37.1; O2SAT 97
[2022-09-21 07:35] LABS: Glucose, Whole Blood 77 mg/dL (60-115)
[2022-09-21 07:36] VITALS: BP 147/76; PULSE 60; RESP 18; TEMP 36.6; O2SAT 95
[2022-09-21 07:46] LABS: Anion Gap 23 (12-20); Blood Urea Nitrogen 78 mg/dL (9-16); Calcium 8.3 mg/dL (8.4-10.2); Carbon Dioxide 15 mmol/L (22-29); Chloride 93 mmol/L (96-108); Creatinine Clr Calc Pharmacy 8.6; Estimated Glomerular Filt Rate 9; Glucose Random 80 mg/dL (60-115); Potassium 5.2 mmol/L (3.3-5.1); Sodium 126 mmol/L (135-145)
[2022-09-21] MEDS: Apixaban 2.5 MG TABLET PO (08:47)
[2022-09-21] MEDS: Cholecalciferol (Vitamin D3) 25 MCG TABLET 50 MCG PO (08:47)
[2022-09-21] MEDS: Insulin Glargine,Hum.rec.anlog 100 UNIT/ML 10 ML VIAL 10 UNIT SUBCUT (08:47)
[2022-09-21] MEDS: Amiodarone HCL 200 MG TABLET PO (08:47)
[2022-09-21] MEDS: FLUoxetine HCl 20 MG CAPSULE PO (08:47)
[2022-09-21] MEDS: Bumetanide 1 MG TABLET PO (08:47)
[2022-09-21] MEDS: carvediloL 3.125 MG TABLET PO (08:47)
[2022-09-21] MEDS: 0.9 % Sodium Chloride Flush 3 ML SYRINGE IVFLUSH (08:48)
[2022-09-21] MEDS: Sodium Zirconium Cyclosilicate 10 GM POWD.PACK PO (09:13)
[2022-09-21 11:14] LABS: Glucose, Whole Blood 170 mg/dL (60-115)
--- NOTE | 2022-09-21 11:45 | P.PNIM_ITS ---
Subjective Subjective Date of Service: 09/21/22 Interval History: This history was taken in Indonesian from the patient. No complaints. To HD today. Review of Systems Review of Systems: Yes all other systems are reviewed and are negative Physical Exam Vital Signs: Vital Signs: Last Vital Signs Temp 97.8 F 09/21/22 07:36 Pulse 60 09/21/22 07:36 Resp 18 09/21/22 07:36 BP 147/76 H 09/21/22 07:36 Pulse Ox 95 09/21/22 07:36 O2 Del Method 09/21/22 07:36 O2 Flow Rate 2.0 08/27/22 07:58 Oxygen Flow Rate 2 08/25/22 17:41 BMI result Body Mass Index 22.6 Gen: in no acute distress HEENT: sclera anicteric, moist mucus membranes Neck: supple, L SC HD catheter intact Lungs: clear to auscultation bilaterally Heart: regular rate and rhythm, no murmurs Abd: soft, non-tender, non-distended Ext: no edema Skin: warm/well-perfused Neuro: alert, mildly confused Psych: appropriate affect Objective Data Active Medications Acetaminophen (Acetaminophen 325 Mg Tablet) 650 mg PO Q6H PRN PRN Reason: Pain, Mild (Pain Scale 1-3) Last Admin: 09/19/22 18:39 Dose: 650 mg Documented By: IRVING Amiodarone HCl (Amiodarone Hcl 200 Mg Tablet) 200 mg PO DAILY [facility] Last Admin: 09/21/22 08:47 Dose: 200 mg Documented By: SOHAIL Apixaban (Apixaban 2.5 Mg Tablet) 2.5 mg PO BID [facility] Last Admin: 09/21/22 08:47 Dose: 2.5 mg Documented By: SOHAIL Atorvastatin Calcium (Atorvastatin Calcium 80 Mg Tablet) 80 mg PO BEDTIME [facility] Last Admin: 08/25/22 21:41 Dose: 80 mg Documented By: MADDENKiesha Bumetanide (Bumetanide 1 Mg Tablet) 1 mg PO BIDWM [facility]; Protocol Last Admin: 09/21/22 08:47 Dose: 1 mg Documented By: SOHAIL Carvedilol (Carvedilol 3.125 Mg Tablet) 3.125 mg PO BID [facility]; Protocol Last Admin: 09/21/22 08:47 Dose: 3.125 mg Documented By: SOHAIL Fluoxetine HCl (Fluoxetine Hcl 20 Mg Capsule) 20 mg PO DAILY [facility] Last Admin: 09/21/22 08:47 Dose: 20 mg Documented By: SOHAIL Glucose (Glucose Gel 15 Gm Gel..Gram.) 15 gm PO Q15M PRN; Protocol PRN Reason: per Hypoglycemia Standing Ord. Dextrose (D10) 250 mls @ 750 mls/hr IV Q15M PRN PRN Reason: per Hypoglycemia Standing Ord. Insulin Glargine (Insulin Glargine,Hum.Rec.Anlog 100 Unit/Ml 10 Ml Vial) 10 unit SUBCUT DAILY [facility] Last Admin: 09/21/22 08:47 Dose: 10 unit Documented By: SOHAIL Insulin Human Lispro (Insulin Lispro 100 Unit/Ml 3 Ml Vial) 0 unit SUBCUT QI [facility]; Protocol Last Admin: 09/21/22 08:22 Dose: Not Given Documented By: SOHAIL Non-Admin Reason: No Insulin Coverage Melatonin (Melatonin 3 Mg Tablet) 6 mg PO BEDTIME PRN PRN Reason: Insomnia Ondansetron HCl (Ondansetron Hcl 4 Mg/2 Ml Vial) 4 mg IVPUSH Q8H PRN PRN Reason: Nausea and Vomiting Pharmacy Consult (Consult Rx Perform Med Rec) 1 each MISCELLANE ONCE PRN PRN Reason: Consult order Sodium Chloride (0.9 % Sodium Chloride Flush 3 Ml Syringe) 3 ml IVFLUSH QSHIFT [facility] Last Admin: 09/21/22 08:48 Dose: 3 ml Documented By: SOHAIL Vitamin D (Cholecalciferol (Vitamin D3) 25 Mcg Tablet) 50 mcg PO DAILY [facility] Last Admin: 09/21/22 08:47 Dose: 50 mcg Documented By: SOHAIL Labs 09/11/22 06:02 09/21/22 05:52 Labs: Laboratory Results - last 24 hr 09/20/22 09/20/22 09/21/22 16:18 20:30 05:52 Anion Gap 23 H Estim Creat Clear Calc 8.6 Estimated GFR 9 POC Glucose 108 142 H Random Glucose 80 Calcium 8.3 L 09/21/22 09/21/22 07:23 11:03 Anion Gap Estim Creat Clear Calc Estimated GFR POC Glucose 77 170 H Random Glucose Calcium Assessment and Plan (1) ESRD (end stage renal disease): Status: Acute Plan d#28 67 year-old male with ESRD on hemodialysis, coronary artery disease with ischemic cardiomyopathy and congestive heart failure with reduced ejection fraction, insulin-dependent diabetes mellitus, paroxysmal atrial fibrillation on Eliquis, and mood disorder who presented to the emergency department for evaluation of dyspnea and was admitted for left lower lobe PNA # acute hypoxic resp failure due to CAP - resolved, no longer hypoxic, completed ABX - not bacteremic, had coag-neg Staph in 2/2 sets which was attributed to contamination # elevated LFTs - largely resolved, HIDA negative, no surgical indication, probably had some degree of hepatitis from the pneumonia # toxic metabolic encephalopathy - slowly improving; likely new baseline - will need placement; family elusive # hypoNa - fluid restrict to 1 L/d, HD today, recheck BMP in AM # hyperK - 1 dose SZC 10 g today, low-K diet, HD today, recheck BMP in AM # ESRD on hemodialysis - HD TuThSa # DM2 - basal-bolus insulin # paroxysmal AF - continue carvedilol - continue amiodarone - continue apixaban # chronic HFpEF - continue carvedilol, bumetanide # mood disorder - continue fluoxetine # VTE ppx: apixaban # dispo: STR pending placement In my clinical judgment, the patient requires continued inpatient hospitalization for the following reasons: safe placement Time Spent With Patient Time: Total time managing care of this patient today ___33_ minutes. Quality Stroke Does the patient have a stroke diagnosis?: No VTE Prior VTE?: No VTE Risk Level:: Medical - moderate - high VTE Device Contraindication: Treatment Not Indicated VTE Drug Contraindication: N/A - Med Ordered
[2022-09-21] MEDS: Insulin Lispro 100 UNIT/ML 3 ML VIAL SUBCUT (12:24)
[2022-09-21 14:27] LABS: COVID-19 Test Negative (Negative); IDNOW Serial# BCCEAD1C
--- NOTE | 2022-09-21 14:48 | P.DS_ITS ---
DS: Providers Provider Date of Service: 09/21/22 Date of admission: 08/25/22 20:34 Primary care physician: Rayray Hart MD Consults: 08/25/22 20:34 Consult to Nephrology Routine Consulting Provider: Gordon Pérez Reason for consultation: ESRD on HD 08/27/22 07:03 Consult to General Surgery Routine Consulting Provider: Nitish Mcmahan Reason for consultation: ?cholecystitis Has provider been notified: No 08/27/22 07:16 Consult to Infectious Diseases Routine Consulting Provider: Rika Quijano Reason for consultation: bacteremia Has provider been notified: No DS: Diagnosis Discharge Diagnosis (1) Acute respiratory failure with hypoxia: Status: Acute (2) Community acquired pneumonia: Status: Acute (3) Encephalopathy acute: Status: Acute (4) Hyperkalemia: Status: Acute (5) Hyponatremia: Status: Acute (6) End stage renal disease: Status: Acute DS: Summary Hospital Course Hospital Course: from history and physical on 08/25/22 by Kaylin Blanchard MD This is a 67-year-old male with pertinent history of ESRD on hemodialysis, coronary artery disease with ischemic cardiomyopathy and congestive heart failure with reduced ejection fraction, insulin-dependent diabetes mellitus, paroxysmal atrial fibrillation on Eliquis, mood disorder who presents to the emergency department for evaluation of dyspnea.? Patient states he started having dyspnea, worse with exertion and productive cough that started yesterday.? Denies fever, chills, chest discomfort, palpitations, abdominal pain, changes in urinary or bowel habits.? No sick contacts.? Soon patient started to dyspnea even at rest.? Denies orthopnea or PND.? His last dialysis session was 08/24 In the emergency department, patient was found to be hypoxemic and imaging with left-sided consolidation. 67 year-old male with ESRD on hemodialysis, coronary artery disease with ischemic cardiomyopathy and congestive heart failure with reduced ejection fraction, insulin-dependent diabetes mellitus, paroxysmal atrial fibrillation on Eliquis, and mood disorder who presented to the emergency department for evaluation of dyspnea and was admitted for left lower lobe PNA. Hypoxia resolved after completing antibiotics for pneumonia. Not truly bactermic; had coagulase-negative staphylococcus that was attributed to contamination. Elevated LFTs improved; HIDA negative; probably had some degree of hepatitis related to the pneumonia. Mental status/encephalopathy improved with treatment of infection. As for hyponatremia, he should be fluid restricted to 1000 mL/day. He got a dose of Lokelma for hyperkalemia. He underwent HD as per his usual schedule of [facility] [place]. STR was recommended and he was discharged to [facility] for STR. BMP should be repeated on 09/22/22 to check sodium and potassium Time Spent with Patient Time attestation: Total time managing care of this patient today ___35_ minutes. Discharge coordination time: Greater than 30 minutes Quality: Safe Use of Opioids Does Pt have an Active Cancer Diagnosis on the Problem List?: No Quality: Stroke Does the patient have a stroke diagnosis?: No Physical Exam Vital Signs: Vital Signs: Last Vital Signs Temp 97.8 F 09/21/22 07:36 Pulse 60 09/21/22 07:36 Resp 18 09/21/22 07:36 BP 147/76 H 09/21/22 07:36 Pulse Ox 95 09/21/22 07:36 O2 Del Method 09/21/22 07:36 O2 Flow Rate 2.0 08/27/22 07:58 Oxygen Flow Rate 2 08/25/22 17:41 BMI result Body Mass Index 22.6 Gen: in no acute distress HEENT: sclera anicteric, moist mucus membranes Neck: supple, L SC HD catheter intact Lungs: clear to auscultation bilaterally Heart: regular rate and rhythm, no murmurs Abd: soft, non-tender, non-distended Ext: no edema Skin: warm/well-perfused Neuro: alert, mildly confused Psych: appropriate affect ? DS: Data Data Completed and Pending Completed studies during hospitalization [Text1]: Laboratory Results WBC 8.3 X10*3/uL (4.8-10.8) 09/11/22 06:02 RBC 3.48 X10*6/uL (4.60-5.80) L 09/11/22 06:02 Hgb 11.2 g/dl (14.0-18.0) L 09/11/22 06:02 Hct 31.9 % (42.0-52.0) L 09/11/22 06:02 MCV 91.7 fL (80.0-98.0) 09/11/22 06:02 MCH 32.2 pg (27.0-33.0) 09/11/22 06:02 MCHC 35.1 g/dl (31.0-36.0) 09/11/22 06:02 RDW 15.8 % (11.0-16.0) 09/11/22 06:02 Plt Count 185 X10*3/uL (160-400) 09/11/22 06:02 MPV 9.3 fL (9.4-12.4) L 09/11/22 06:02 Immature Gran % (Auto) 0.4 % (0.0-0.4) 09/11/22 06:02 Neut % (Auto) 73.5 % (45-73) H 09/11/22 06:02 Lymph % (Auto) 20.3 % (20-40) 09/11/22 06:02 Mcdowell % (Auto) 4.8 % (2-11) 09/11/22 06:02 Eos % (Auto) 0.6 % (0-4) 09/11/22 06:02 Baso % (Auto) 0.4 % (0-2) 09/11/22 06:02 Lymph # (Auto) 1.7 X10*3/uL (1.2-4.9) 09/11/22 06:02 Mcdowell # (Auto) 0.4 X10*3/uL (0.1-1.2) 09/11/22 06:02 Eos # (Auto) 0.1 X10*3/uL (0.0-0.4) 09/11/22 06:02 Baso # (Auto) 0.0 X10*3/uL (0.0-0.2) 09/11/22 06:02 Abs Immat Gran (auto) 0.03 X10*3/uL (0.00-0.03) 09/11/22 06:02 Absolute Neuts (auto) 6.1 x10*3/uL (2.0-8.3) 09/11/22 06:02 Absolute Nucleated RBC 0.000 X10*3/uL (0.0-0.012) 09/11/22 06:02 Nucleated RBC % (auto) 0.0 /100WBC (0.0-0.2) 09/11/22 06:02 PT 23.4 SEC (10.0-13.1) H 08/25/22 19:19 INR 2.0 (0.9-1.1) H 08/25/22 19:19 APTT 30.6 SEC (26.0-36.4) 08/25/22 19:19 Sodium 126 mmol/L (135-145) L 09/21/22 05:52 Potassium 5.2 mmol/L (3.3-5.1) H 09/21/22 05:52 Chloride 93 mmol/L (96-108) L 09/21/22 05:52 Carbon Dioxide 15 mmol/L (22-29) L 09/21/22 05:52 Anion Gap 23 (12-20) H 09/21/22 05:52 BUN 78 mg/dL (9-16) H 09/21/22 05:52 Creatinine 6.21 mg/dL (0.5-1.4) H* 09/21/22 05:52 Estim Creat Clear Calc 8.6 09/21/22 05:52 Estimated GFR 9 09/21/22 05:52 POC Glucose 170 mg/dL (60-115) H 09/21/22 11:03 Random Glucose 80 mg/dL (60-115) 09/21/22 05:52 Fasting Glucose 125 mg/dL (60-99) H 09/04/22 05:35 Lactic Acid 2.9 mmol/L (0.5-2.0) H* 08/25/22 19:40 Lactic Acid F/U @ 2Hr 2.9 mmol/L (0.5-2.0) H* 08/25/22 22:03 Lactic Acid F/U @ 4Hr 2.2 mmol/L (0.5-2.0) H* 08/26/22 00:29 Calcium 8.3 mg/dL (8.4-10.2) L 09/21/22 05:52 Phosphorus 4.2 mg/dL (2.7-4.5) 08/25/22 19:19 Magnesium 1.8 mg/dL (1.6-2.6) 08/25/22 19:19 Total Bilirubin 0.9 mg/dL (0.0-1.0) 09/04/22 05:35 Direct Bilirubin 0.5 mg/dL (0.0-0.5) 08/28/22 05:54 AST 19 U/L (5-37) 09/04/22 05:35 ALT 43 U/L (0-40) H 09/04/22 05:35 Alkaline Phosphatase 91 U/L (39-117) 09/04/22 05:35 Troponin I High Sens 114.7 ng/L (<3.5-35.0) H* 08/25/22 19:19 Total Protein 6.9 g/dL (6.5-8.0) 09/04/22 05:35 Albumin 3.0 g/dL (3.5-5.0) L 09/04/22 05:35 Nasal Screen MRSA (PCR) NEGATIVE (Negative) 08/27/22 17:45 Nasal S. aureus Screen NEGATIVE (Negative) 08/27/22 17:45 Nasal MRSA/S.aureus Interp SEE NOTE 08/27/22 17:45 Vancomycin Trough 12.0 mcg/mL (10.0-20.0) 08/28/22 15:58 COVID-19 (REJI) Negative (Negative) 09/21/22 14:03 COVID-19 Clin Com See Note 09/21/22 14:03 Hep Bs Antigen Negative (Negative) 09/14/22 14:28 Hep Bs Antibody REACTIVE (Nonreactive) 09/14/22 14:28 Hep B Core Total Ab Nonreactive (Nonreactive) 09/14/22 14:28 Influenza Type A (PCR) NEGATIVE (Negative) 08/25/22 19:20 Influenza Type B (PCR) NEGATIVE (Negative) 08/25/22 19:20 RSV RNA Qual (PCR) NEGATIVE (Negative) 08/25/22 19:20 SARS-CoV-2 RNA (RT-PCR) NEGATIVE (Negative) 08/25/22 19:20 Blood Type O Positive 08/25/22 19:19 Antibody Screen NEGATIVE 08/25/22 19:19 Impressions Chest X-Ray 08/25/22 18:31 IMPRESSION: 1. Left IJ central port catheter tip at cavoatrial junction. 2. Cardiomegaly. 3. Dense left lower lobe consolidation. Head CT 08/26/22 11:08 IMPRESSION: No acute intracranial abnormality. 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 Abdomen Ultrasound 08/26/22 19:05 IMPRESSION: 1. Cholelithiasis with gallbladder wall thickening suggesting acute cholecystitis in the appropriate clinical setting. If indicated, correlation with a hepatobiliary nuclear medicine study could be obtained. 2. Small volume of free fluid in the perihepatic space and Morison's pouch. Hepatobiliary Scan Nuclear Medicine 08/27/22 13:20 IMPRESSION: 1. Visualization of the gallbladder is evidence of a patent cystic duct and strong evidence against the diagnosis of acute cholecystitis. The common bile duct is patent. Liver function appears normal. 2. Poor gallbladder emptying and a low gallbladder ejection fraction are evidence of impaired gallbladder contractility and most likely due to chronic cholecystitis. Discharge Plan Discharge Anticipated Discharge Date/Time: 09/21/22 18:30 Patient Disposition: [facility] Discharge Diagnosis: - acute hypoxic resp failure due to CAP - elevated LFTs - toxic metabolic encephalopathy - hyponatremia - hyperkalemia - ESRD on HD Referrals: NameRayray MD [Primary Care Provider] - 1 Week Discharge Medications: New Eliquis 2.5 mg Tablet 2.5 mg PO BID Qty: 60 0RF Continued atorvastatin 80 mg tablet 80 mg PO BEDTIME Qty: 90 1RF Rx Instructions: Please call Dr. Abarca's office to schedule follow up appointment in order to continue refills; [phone]. amiodarone 200 mg tablet 1 tab PO DAILY carvedilol 3.125 mg tablet 1 tab PO BID bumetanide 1 mg tablet 1 tab PO BIDWM insulin aspart U-100 [Novolog FlexPen U-100 Insulin] 100 unit/mL (3 mL) insulin pen See Protocol subcut QIDACHS Protocol: Insulin Correction Scale Less than or equal to 110 ---- Give (units): 0 111 to 150 Give (units): 0 151 to 200 Give (units): 2 201 to 250 Give (units): 4 251 to 300 Give (units): 6 301 to 350 Give (units): 8 Greater than 350 Give (units): 10 Call MD if Blood Glucose > : 350 insulin glargine [Lantus Solostar U-100 Insulin] 100 unit/mL (3 mL) insulin pen 12 unit subcut DAILY cholecalciferol (vitamin D3) 50 mcg (2,000 unit) tablet 1 tab PO DAILY fluoxetine 20 mg capsule 1 cap PO DAILY Discontinued Eliquis 5 mg tablet 1 tab PO BID Discharge Orders: Discharge Order (Routine); Ordered 09/21/22 Ordered By: Valencia Youngblood Diet: Diabetic diet Activity on Discharge: As tolerated Stand Alone Forms: Patient Portal Discharge page Other Ambulatory Orders: Basic Metabolic Panel (Routine) Timeframe: [id number] Facility: [facility] - Location: Laboratory Ordered By: Valencia Youngblood Care Plan Goals: recovery from pneumonia correct electrolyte abnormalities Health Concerns: acute hypoxic respiratory failure and encephalopathy due to pneumonia - resolved after treatment hyponatremia - restrict fluid intake to 1 liter daily; recheck BMP on 09/22/22 # hyperkalemia - low-potassium diet; recheck BMp 09/22/22 # ESRD - dialysis TuThSa Please follow up with your primary care doctor within 1 week. Return to the hospital if you experience recurrent or worsening symptoms. Plan of Treatment: as above Assessment: See Discharge Summary.
--- NOTE | 2022-09-21 14:59 | PM.PNNEP ---
Subjective Subjective Date of Service: 09/21/22 Interval history: On HD today. No complaints Physical Exam Vital Signs: Vital Signs: Last Vital Signs Temp 97.8 F 09/21/22 07:36 Pulse 60 09/21/22 07:36 Resp 18 09/21/22 07:36 BP 147/76 H 09/21/22 07:36 Pulse Ox 95 09/21/22 07:36 O2 Del Method 09/21/22 07:36 O2 Flow Rate 2.0 08/27/22 07:58 Oxygen Flow Rate 2 08/25/22 17:41 BMI result Body Mass Index 22.6 Const: General: no acute distress Orientation/consciousness: patient oriented x3 Eyes: EOM: EOMs intact bilaterally Resp: Auscultation: diminished lung sounds Cardio: Rate: regular rate GI: Palpation (GI): Soft to palpation Neuro: General: patient oriented x3 Objective Data Labs 09/11/22 06:02 09/21/22 05:52 Labs: Laboratory Results - last 24 hr 09/20/22 09/20/22 09/21/22 16:18 20:30 05:52 Sodium 126 L Potassium 5.2 H Chloride 93 L Carbon Dioxide 15 L Anion Gap 23 H BUN 78 H Creatinine 6.21 H* Estim Creat Clear Calc 8.6 Estimated GFR 9 POC Glucose 108 142 H Random Glucose 80 Calcium 8.3 L COVID-19 (REJI) COVID-19 Clin Com 09/21/22 09/21/22 09/21/22 07:23 11:03 14:03 Sodium Potassium Chloride Carbon Dioxide Anion Gap BUN Creatinine Estim Creat Clear Calc Estimated GFR POC Glucose 77 170 H Random Glucose Calcium COVID-19 (REJI) Negative COVID-19 Clin Com See Note Microbiology Microbiology Results: Microbiology 08/27/22 08:02 Blood - Venous Blood Culture - Final No growth after 5 days. 08/27/22 07:55 Blood - Venous Blood Culture - Final No growth after 5 days. 08/25/22 19:40 Blood - Venous Blood Culture - Final Staphylococcus epidermidis 08/25/22 19:40 Blood - Venous Blood Culture - Final Staphylococcus epidermidis Procedures Date of Service Date of Service: 09/21/22 Assessment & Plan Assessment and plan (1) ESRD needing dialysis: Status: Acute Assessment and Plan: ESRD: HD dependent-On HD Usually gets on? TTS Vol Removal as tolerated Continue current supportive mgt Time Spent With Patient Time: Total time managing care of this patient today ____ minutes. Progress Note: Quality Stroke Does the patient have a stroke diagnosis?: No
--- NOTE | 2022-09-21 15:35 | MHC.CM.PN ---
DP: PT HAS BEEN MEDICALLY CLEARED FOR DC TO [facility] FOR STR/DIALYSIS. RN AWARE. TRANSFER BOOKED FOR 6: 30 PM VIA [facility]. [facility] AWARE.
== END 2022-09-21 18:35 | disposition skilled nursing facility (03) | DRG 193 ==
LOC: HO.ED 20:23 → HO.EDOVER 20:44 → HO.S3 08-26 18:57
PROVIDERS: Hospitalist; Internal Medicine; Internal Medicine Nephrology; Nurse Practitioner Acute Care; Physician Assistant; Physician Assistant Medical; Admitting Provider Student in an Organized Health Care Education/Training Program; Emergency Provider Emergency Medicine; PCP Internal Medicine Geriatric Medicine; Visit Provider Family Medicine
DX: J18.9 Pneumonia, unspecified organism (principal); G92.8 Other toxic encephalopathy; I21.A1 Myocardial infarction type 2; N18.6 End stage renal disease; J96.01 Acute respiratory failure with hypoxia; I13.2 Hypertensive heart and chronic kidney disease with heart failure and with stage 5 chronic kidney disease, or end stage renal disease; E87.21 Acute metabolic acidosis; I50.22 Chronic systolic (congestive) heart failure; I25.5 Ischemic cardiomyopathy; I48.0 Paroxysmal atrial fibrillation; K80.20 Calculus of gallbladder without cholecystitis without obstruction; D64.9 Anemia, unspecified; D63.1 Anemia in chronic kidney disease; F39 Unspecified mood [affective] disorder; E78.1 Pure hyperglyceridemia; K75.9 Inflammatory liver disease, unspecified; E87.5 Hyperkalemia; I25.10 Atherosclerotic heart disease of native coronary artery without angina pectoris; Z20.822 Contact with and (suspected) exposure to COVID-19; Z75.1 Person awaiting admission to adequate facility elsewhere; Z99.2 Dependence on renal dialysis; Z79.4 Long term (current) use of insulin; Z79.01 Long term (current) use of anticoagulants; Z79.899 Other long term (current) drug therapy
CPT/HCPCS: 0241U; 36415; 70450; 71045; 76705; 78227; 80048; 80053; 80076; 80202; 82947; 83605; 83735; 84100; 84484; 85025; 85610; 85730; 86704; 86706; 86850; 86900; 86901; 87040; 87077; 87186; 87205; 87340; 87635; 87640; 87641; 90935; 90999; 93005; 93306; 97110; 97112; 97116; 97162; 97530; 99285; A9537; J0456; J0696; J2543; J2805; J3371; Q9957

== ENCOUNTER 2022-09-22 05:47 | Outpatient (REF) | payer OTHER, SELFPAY ==
[2022-09-22 05:50] LABS: MANUAL DIFF FLAG NO
[2022-09-22 06:27] LABS: Basophils Percent Auto 0.2 % (0-2); Eosinophils Percent Auto 0.2 % (0-4); Hematocrit 30.6 % (42.0-52.0); Hemoglobin 10.6 g/dl (14.0-18.0); Imm Gran Abs Auto 0.03 X10*3/uL (0.00-0.03); Imm Gran Pct Auto 0.3 % (0.0-0.4); Lymphocytes Absolute Auto 0.8 X10*3/uL (1.2-4.9); Mean Corpuscular HGB Conc 34.6 g/dl (31.0-36.0); Mean Corpuscular Hemoglobin 31.4 pg (27.0-33.0); Mean Corpuscular Volume 90.5 fL (80.0-98.0); Mean Platelet Volume 8.6 fL (9.4-12.4); Monocytes Absolute Auto 0.4 X10*3/uL (0.1-1.2); Monocytes Percent Auto 4.1 % (2-11); Neutrophils Absolute Auto 8.4 x10*3/uL (2.0-8.3); Neutrophils Percent Auto 87.2 % (45-73); Platelet Count 220 X10*3/uL (160-400); Red Blood Count 3.38 X10*6/uL (4.60-5.80); White Blood Count 9.6 X10*3/uL (4.8-10.8)
[2022-09-22 06:51] LABS: Alanine Aminotransferase 22 U/L (0-40); Albumin Level 3.1 g/dL (3.5-5.0); Alkaline Phosphatase 117 U/L (39-117); Anion Gap 16 (12-20); Aspartate Amino Transferase 16 U/L (5-37); Bilirubin Total 0.8 mg/dL (0.0-1.0); Blood Urea Nitrogen 42 mg/dL (9-16); Calcium 7.9 mg/dL (8.4-10.2); Carbon Dioxide 18 mmol/L (22-29); Chloride 100 mmol/L (96-108); Estimated Glomerular Filt Rate 16; Glucose Random 126 mg/dL (60-115); Potassium 4.4 mmol/L (3.3-5.1); Sodium 130 mmol/L (135-145); Total Protein 7.1 g/dL (6.5-8.0)
== END 2022-09-22 05:48 | disposition home or self-care (01) ==
LOC: HO.MMNH2L 05:47
PROVIDERS: Visit Provider Family Medicine
DX: N18.6 End stage renal disease (principal)
CPT/HCPCS: 36415; 80053; 85025

== ENCOUNTER 2022-09-27 05:53 | Outpatient (REF) | payer OTHER, SELFPAY ==
[2022-09-27 05:44] LABS: MANUAL DIFF FLAG NO
[2022-09-27 06:27] LABS: Basophils Percent Auto 0.3 % (0-2); Eosinophils Absolute Auto 0.1 X10*3/uL (0.0-0.4); Eosinophils Percent Auto 0.9 % (0-4); Hematocrit 26.7 % (42.0-52.0); Hemoglobin 8.9 g/dl (14.0-18.0); Imm Gran Abs Auto 0.03 X10*3/uL (0.00-0.03); Imm Gran Pct Auto 0.5 % (0.0-0.4); Lymphocytes Absolute Auto 1.7 X10*3/uL (1.2-4.9); Lymphocytes Percent Auto 26.1 % (20-40); Mean Corpuscular HGB Conc 33.3 g/dl (31.0-36.0); Mean Corpuscular Hemoglobin 31.3 pg (27.0-33.0); Mean Platelet Volume 9.2 fL (9.4-12.4); Monocytes Absolute Auto 0.5 X10*3/uL (0.1-1.2); Monocytes Percent Auto 7.8 % (2-11); Neutrophils Absolute Auto 4.2 x10*3/uL (2.0-8.3); Neutrophils Percent Auto 64.4 % (45-73); Platelet Count 168 X10*3/uL (160-400); Red Blood Count 2.84 X10*6/uL (4.60-5.80); Red Cell Distribution Width 15.2 % (11.0-16.0); White Blood Count 6.6 X10*3/uL (4.8-10.8)
[2022-09-27 07:59] LABS: Anion Gap 17 (12-20); Blood Urea Nitrogen 31 mg/dL (9-16); Calcium 8.1 mg/dL (8.4-10.2); Carbon Dioxide 22 mmol/L (22-29); Chloride 94 mmol/L (96-108); Glucose Random 94 mg/dL (60-115); Potassium 4.6 mmol/L (3.3-5.1); Sodium 128 mmol/L (135-145)
[2022-09-27 08:38] LABS: Estimated Glomerular Filt Rate 14
== END 2022-09-27 05:54 | disposition home or self-care (01) ==
LOC: HO.MMNH2L 05:53
PROVIDERS: Visit Provider Family Medicine
DX: N18.6 End stage renal disease (principal)
CPT/HCPCS: 36415; 80048; 85025

== ENCOUNTER 2022-10-04 06:21 | Outpatient (REF) | payer OTHER, SELFPAY ==
[2022-10-04 06:10] LABS: MANUAL DIFF FLAG NO
[2022-10-04 06:33] LABS: Basophils Percent Auto 0.3 % (0-2); Eosinophils Absolute Auto 0.1 X10*3/uL (0.0-0.4); Eosinophils Percent Auto 0.8 % (0-4); Hematocrit 29.9 % (42.0-52.0); Hemoglobin 9.8 g/dl (14.0-18.0); Imm Gran Abs Auto 0.03 X10*3/uL (0.00-0.03); Imm Gran Pct Auto 0.4 % (0.0-0.4); Lymphocytes Percent Auto 24.9 % (20-40); Mean Corpuscular HGB Conc 32.8 g/dl (31.0-36.0); Mean Corpuscular Hemoglobin 31.1 pg (27.0-33.0); Mean Corpuscular Volume 94.9 fL (80.0-98.0); Mean Platelet Volume 8.8 fL (9.4-12.4); Monocytes Absolute Auto 0.6 X10*3/uL (0.1-1.2); Monocytes Percent Auto 7.6 % (2-11); Neutrophils Absolute Auto 5.2 x10*3/uL (2.0-8.3); Platelet Count 190 X10*3/uL (160-400); Red Blood Count 3.15 X10*6/uL (4.60-5.80); Red Cell Distribution Width 15.4 % (11.0-16.0); White Blood Count 7.9 X10*3/uL (4.8-10.8)
[2022-10-04 07:07] LABS: Anion Gap 15 (12-20); Blood Urea Nitrogen 20 mg/dL (9-16); Calcium 8.4 mg/dL (8.4-10.2); Carbon Dioxide 27 mmol/L (22-29); Chloride 97 mmol/L (96-108); Glucose Random 68 mg/dL (60-115); Potassium 4.5 mmol/L (3.3-5.1); Sodium 134 mmol/L (135-145)
[2022-10-04 08:04] LABS: Estimated Glomerular Filt Rate 14
== END 2022-10-04 06:22 | disposition home or self-care (01) ==
LOC: HO.MMNH2L 06:21
PROVIDERS: Visit Provider Family Medicine
DX: N18.6 End stage renal disease (principal)
CPT/HCPCS: 36415; 80048; 85025

== ENCOUNTER 2022-10-11 06:20 | Outpatient (REF) | payer OTHER, SELFPAY ==
[2022-10-11 06:13] LABS: MANUAL DIFF FLAG NO
[2022-10-11 06:53] LABS: Basophils Percent Auto 0.2 % (0-2); Eosinophils Absolute Auto 0.1 X10*3/uL (0.0-0.4); Eosinophils Percent Auto 0.8 % (0-4); Hematocrit 30.4 % (42.0-52.0); Hemoglobin 10.4 g/dl (14.0-18.0); Imm Gran Abs Auto 0.02 X10*3/uL (0.00-0.03); Imm Gran Pct Auto 0.2 % (0.0-0.4); Lymphocytes Absolute Auto 1.9 X10*3/uL (1.2-4.9); Lymphocytes Percent Auto 21.9 % (20-40); Mean Corpuscular HGB Conc 34.2 g/dl (31.0-36.0); Mean Corpuscular Hemoglobin 32.4 pg (27.0-33.0); Mean Corpuscular Volume 94.7 fL (80.0-98.0); Mean Platelet Volume 8.8 fL (9.4-12.4); Monocytes Absolute Auto 0.6 X10*3/uL (0.1-1.2); Monocytes Percent Auto 6.8 % (2-11); Neutrophils Percent Auto 70.1 % (45-73); Platelet Count 194 X10*3/uL (160-400); Red Blood Count 3.21 X10*6/uL (4.60-5.80); White Blood Count 8.6 X10*3/uL (4.8-10.8)
[2022-10-11 07:57] LABS: Anion Gap 18 (12-20); Blood Urea Nitrogen 21 mg/dL (9-16); Calcium 8.4 mg/dL (8.4-10.2); Carbon Dioxide 24 mmol/L (22-29); Chloride 95 mmol/L (96-108); Potassium 3.9 mmol/L (3.3-5.1); Sodium 133 mmol/L (135-145)
[2022-10-11 08:35] LABS: Estimated Glomerular Filt Rate 13; Glucose Random 44 mg/dL (60-115)
== END 2022-10-11 06:21 | disposition home or self-care (01) ==
LOC: HO.MMNH2L 06:20
PROVIDERS: Visit Provider Family Medicine
DX: N18.6 End stage renal disease (principal)
CPT/HCPCS: 36415; 80048; 85025

== ENCOUNTER 2022-10-18 06:06 | Outpatient (REF) | payer OTHER, SELFPAY ==
[2022-10-18 05:55] LABS: MANUAL DIFF FLAG NO
[2022-10-18 06:12] LABS: Basophils Percent Auto 0.2 % (0-2); Eosinophils Absolute Auto 0.1 X10*3/uL (0.0-0.4); Eosinophils Percent Auto 1.1 % (0-4); Hemoglobin 9.3 g/dl (14.0-18.0); Imm Gran Abs Auto 0.03 X10*3/uL (0.00-0.03); Imm Gran Pct Auto 0.4 % (0.0-0.4); Lymphocytes Absolute Auto 1.9 X10*3/uL (1.2-4.9); Lymphocytes Percent Auto 22.8 % (20-40); Mean Corpuscular HGB Conc 33.2 g/dl (31.0-36.0); Mean Corpuscular Hemoglobin 31.8 pg (27.0-33.0); Mean Corpuscular Volume 95.9 fL (80.0-98.0); Mean Platelet Volume 9.2 fL (9.4-12.4); Monocytes Absolute Auto 0.6 X10*3/uL (0.1-1.2); Neutrophils Absolute Auto 5.7 x10*3/uL (2.0-8.3); Neutrophils Percent Auto 68.5 % (45-73); Platelet Count 195 X10*3/uL (160-400); Red Blood Count 2.92 X10*6/uL (4.60-5.80); Red Cell Distribution Width 16.8 % (11.0-16.0); White Blood Count 8.3 X10*3/uL (4.8-10.8)
[2022-10-18 07:12] LABS: Anion Gap 15 (12-20); Blood Urea Nitrogen 26 mg/dL (9-16); Calcium 8.4 mg/dL (8.4-10.2); Carbon Dioxide 28 mmol/L (22-29); Chloride 97 mmol/L (96-108); Glucose Random 78 mg/dL (60-115); Potassium 3.8 mmol/L (3.3-5.1); Sodium 136 mmol/L (135-145)
[2022-10-18 07:31] LABS: Estimated Glomerular Filt Rate 13
== END 2022-10-18 06:07 | disposition home or self-care (01) ==
LOC: HO.MMNH2L 06:06
PROVIDERS: Visit Provider Family Medicine
DX: N18.6 End stage renal disease (principal)
CPT/HCPCS: 36415; 80048; 85025

== ENCOUNTER 2022-10-25 06:07 | Outpatient (REF) | payer OTHER, SELFPAY ==
[2022-10-25 05:59] LABS: MANUAL DIFF FLAG NO
[2022-10-25 06:58] LABS: Basophils Percent Auto 0.5 % (0-2); Eosinophils Absolute Auto 0.1 X10*3/uL (0.0-0.4); Eosinophils Percent Auto 1.1 % (0-4); Hematocrit 31.7 % (42.0-52.0); Hemoglobin 10.4 g/dl (14.0-18.0); Imm Gran Abs Auto 0.03 X10*3/uL (0.00-0.03); Imm Gran Pct Auto 0.5 % (0.0-0.4); Lymphocytes Absolute Auto 1.8 X10*3/uL (1.2-4.9); Lymphocytes Percent Auto 28.3 % (20-40); Mean Corpuscular HGB Conc 32.8 g/dl (31.0-36.0); Mean Corpuscular Hemoglobin 31.6 pg (27.0-33.0); Mean Corpuscular Volume 96.4 fL (80.0-98.0); Mean Platelet Volume 9.1 fL (9.4-12.4); Monocytes Absolute Auto 0.5 X10*3/uL (0.1-1.2); Monocytes Percent Auto 7.4 % (2-11); Neutrophils Absolute Auto 3.9 x10*3/uL (2.0-8.3); Neutrophils Percent Auto 62.2 % (45-73); Platelet Count 172 X10*3/uL (160-400); Red Blood Count 3.29 X10*6/uL (4.60-5.80); Red Cell Distribution Width 16.9 % (11.0-16.0); White Blood Count 6.2 X10*3/uL (4.8-10.8)
[2022-10-25 07:46] LABS: Alanine Aminotransferase 12 U/L (0-40); Albumin Level 2.9 g/dL (3.5-5.0); Alkaline Phosphatase 91 U/L (39-117); Anion Gap 14 (12-20); Aspartate Amino Transferase 14 U/L (5-37); Bilirubin Total 0.7 mg/dL (0.0-1.0); Blood Urea Nitrogen 29 mg/dL (9-16); Calcium 8.2 mg/dL (8.4-10.2); Carbon Dioxide 26 mmol/L (22-29); Chloride 99 mmol/L (96-108); Estimated Glomerular Filt Rate 11; Glucose Random 92 mg/dL (60-115); Potassium 3.9 mmol/L (3.3-5.1); Sodium 135 mmol/L (135-145); Total Protein 6.8 g/dL (6.5-8.0)
== END 2022-10-25 06:08 | disposition home or self-care (01) ==
LOC: HO.MMNH2L 06:07
PROVIDERS: Visit Provider Family Medicine
DX: N18.6 End stage renal disease (principal)
CPT/HCPCS: 36415; 80053; 85025

== ENCOUNTER 2022-11-01 05:53 | Outpatient (REF) | payer OTHER, SELFPAY ==
[2022-11-01 05:45] LABS: MANUAL DIFF FLAG NO
[2022-11-01 06:25] LABS: Basophils Percent Auto 0.3 % (0-2); Eosinophils Absolute Auto 0.1 X10*3/uL (0.0-0.4); Hematocrit 29.6 % (42.0-52.0); Imm Gran Abs Auto 0.02 X10*3/uL (0.00-0.03); Imm Gran Pct Auto 0.3 % (0.0-0.4); Lymphocytes Percent Auto 28.3 % (20-40); Mean Corpuscular HGB Conc 33.8 g/dl (31.0-36.0); Mean Corpuscular Hemoglobin 32.3 pg (27.0-33.0); Mean Corpuscular Volume 95.5 fL (80.0-98.0); Mean Platelet Volume 8.8 fL (9.4-12.4); Monocytes Absolute Auto 0.6 X10*3/uL (0.1-1.2); Monocytes Percent Auto 7.9 % (2-11); Neutrophils Absolute Auto 4.3 x10*3/uL (2.0-8.3); Neutrophils Percent Auto 62.2 % (45-73); Platelet Count 189 X10*3/uL (160-400); Red Cell Distribution Width 16.2 % (11.0-16.0); White Blood Count 6.9 X10*3/uL (4.8-10.8)
[2022-11-01 06:54] LABS: Alanine Aminotransferase 15 U/L (0-40); Albumin Level 2.8 g/dL (3.5-5.0); Alkaline Phosphatase 86 U/L (39-117); Anion Gap 13 (12-20); Aspartate Amino Transferase 16 U/L (5-37); Bilirubin Total 0.8 mg/dL (0.0-1.0); Blood Urea Nitrogen 23 mg/dL (9-16); Calcium 8.3 mg/dL (8.4-10.2); Carbon Dioxide 29 mmol/L (22-29); Chloride 96 mmol/L (96-108); Estimated Glomerular Filt Rate 14; Glucose Random 109 mg/dL (60-115); Potassium 4.1 mmol/L (3.3-5.1); Sodium 134 mmol/L (135-145); Total Protein 6.5 g/dL (6.5-8.0)
== END 2022-11-01 05:54 | disposition home or self-care (01) ==
LOC: HO.MMNH2L 05:53
PROVIDERS: Visit Provider Family Medicine
DX: N18.6 End stage renal disease (principal)
CPT/HCPCS: 36415; 80053; 85025

== ENCOUNTER 2022-11-08 06:04 | Outpatient (REF) | payer OTHER, SELFPAY ==
[2022-11-08 06:02] LABS: MANUAL DIFF FLAG NO
[2022-11-08 07:01] LABS: Basophils Percent Auto 0.4 % (0-2); Eosinophils Absolute Auto 0.1 X10*3/uL (0.0-0.4); Eosinophils Percent Auto 1.2 % (0-4); Hematocrit 30.5 % (42.0-52.0); Hemoglobin 10.4 g/dl (14.0-18.0); Imm Gran Abs Auto 0.03 X10*3/uL (0.00-0.03); Imm Gran Pct Auto 0.4 % (0.0-0.4); Lymphocytes Absolute Auto 1.7 X10*3/uL (1.2-4.9); Lymphocytes Percent Auto 21.3 % (20-40); Mean Corpuscular HGB Conc 34.1 g/dl (31.0-36.0); Mean Corpuscular Volume 96.8 fL (80.0-98.0); Mean Platelet Volume 9.1 fL (9.4-12.4); Monocytes Absolute Auto 0.6 X10*3/uL (0.1-1.2); Monocytes Percent Auto 6.9 % (2-11); Neutrophils Absolute Auto 5.6 x10*3/uL (2.0-8.3); Neutrophils Percent Auto 69.8 % (45-73); Platelet Count 180 X10*3/uL (160-400); Red Blood Count 3.15 X10*6/uL (4.60-5.80); Red Cell Distribution Width 16.8 % (11.0-16.0); White Blood Count 8.1 X10*3/uL (4.8-10.8)
[2022-11-08 07:21] LABS: Anion Gap 12 (12-20); Blood Urea Nitrogen 33 mg/dL (9-16); Calcium 8.7 mg/dL (8.4-10.2); Carbon Dioxide 31 mmol/L (22-29); Chloride 97 mmol/L (96-108); Glucose Random 92 mg/dL (60-115); Potassium 3.9 mmol/L (3.3-5.1); Sodium 136 mmol/L (135-145)
[2022-11-08 10:27] LABS: Estimated Glomerular Filt Rate 13
== END 2022-11-08 06:05 | disposition home or self-care (01) ==
LOC: HO.MMNH2L 06:04
PROVIDERS: Visit Provider Family Medicine
DX: N18.6 End stage renal disease (principal)
CPT/HCPCS: 36415; 80048; 85025

== ENCOUNTER 2022-11-15 05:50 | Outpatient (REF) | payer OTHER, SELFPAY ==
[2022-11-15 05:39] LABS: MANUAL DIFF FLAG NO
[2022-11-15 06:16] LABS: Basophils Percent Auto 0.1 % (0-2); Eosinophils Absolute Auto 0.1 X10*3/uL (0.0-0.4); Eosinophils Percent Auto 0.5 % (0-4); Hematocrit 30.5 % (42.0-52.0); Hemoglobin 10.1 g/dl (14.0-18.0); Imm Gran Abs Auto 0.05 X10*3/uL (0.00-0.03); Imm Gran Pct Auto 0.4 % (0.0-0.4); Lymphocytes Absolute Auto 1.8 X10*3/uL (1.2-4.9); Lymphocytes Percent Auto 13.9 % (20-40); Mean Corpuscular HGB Conc 33.1 g/dl (31.0-36.0); Mean Corpuscular Hemoglobin 32.4 pg (27.0-33.0); Mean Corpuscular Volume 97.8 fL (80.0-98.0); Mean Platelet Volume 8.8 fL (9.4-12.4); Monocytes Absolute Auto 0.7 X10*3/uL (0.1-1.2); Monocytes Percent Auto 5.7 % (2-11); Neutrophils Absolute Auto 10.2 x10*3/uL (2.0-8.3); Neutrophils Percent Auto 79.4 % (45-73); Platelet Count 226 X10*3/uL (160-400); Red Blood Count 3.12 X10*6/uL (4.60-5.80); Red Cell Distribution Width 16.1 % (11.0-16.0); White Blood Count 12.9 X10*3/uL (4.8-10.8)
[2022-11-15 06:47] LABS: Anion Gap 14 (12-20); Blood Urea Nitrogen 31 mg/dL (9-16); Calcium 8.7 mg/dL (8.4-10.2); Carbon Dioxide 26 mmol/L (22-29); Chloride 97 mmol/L (96-108); Estimated Glomerular Filt Rate 11; Glucose Random 106 mg/dL (60-115); Potassium 3.9 mmol/L (3.3-5.1); Sodium 133 mmol/L (135-145)
== END 2022-11-15 05:51 | disposition home or self-care (01) ==
LOC: HO.MMNH2L 05:50
PROVIDERS: Visit Provider Family Medicine
DX: N18.6 End stage renal disease (principal)
CPT/HCPCS: 36415; 80048; 85025

== ENCOUNTER 2022-11-22 06:18 | Outpatient (REF) | payer OTHER, SELFPAY ==
[2022-11-22 06:10] LABS: MANUAL DIFF FLAG NO
[2022-11-22 06:20] LABS: Basophils Percent Auto 0.3 % (0-2); Eosinophils Absolute Auto 0.1 X10*3/uL (0.0-0.4); Eosinophils Percent Auto 0.7 % (0-4); Hematocrit 31.1 % (42.0-52.0); Hemoglobin 10.5 g/dl (14.0-18.0); Imm Gran Abs Auto 0.04 X10*3/uL (0.00-0.03); Imm Gran Pct Auto 0.5 % (0.0-0.4); Lymphocytes Absolute Auto 1.9 X10*3/uL (1.2-4.9); Lymphocytes Percent Auto 21.6 % (20-40); Mean Corpuscular HGB Conc 33.8 g/dl (31.0-36.0); Mean Corpuscular Hemoglobin 32.3 pg (27.0-33.0); Mean Corpuscular Volume 95.7 fL (80.0-98.0); Monocytes Absolute Auto 0.6 X10*3/uL (0.1-1.2); Neutrophils Absolute Auto 6.2 x10*3/uL (2.0-8.3); Neutrophils Percent Auto 69.9 % (45-73); Platelet Count 200 X10*3/uL (160-400); Red Blood Count 3.25 X10*6/uL (4.60-5.80); Red Cell Distribution Width 15.6 % (11.0-16.0); White Blood Count 8.8 X10*3/uL (4.8-10.8)
[2022-11-22 07:13] LABS: Alanine Aminotransferase 13 U/L (0-40); Albumin Level 2.9 g/dL (3.5-5.0); Alkaline Phosphatase 94 U/L (39-117); Anion Gap 13 (12-20); Aspartate Amino Transferase 16 U/L (5-37); Bilirubin Total 0.6 mg/dL (0.0-1.0); Blood Urea Nitrogen 30 mg/dL (9-16); Calcium 8.6 mg/dL (8.4-10.2); Carbon Dioxide 28 mmol/L (22-29); Chloride 97 mmol/L (96-108); Glucose Random 84 mg/dL (60-115); Potassium 4.1 mmol/L (3.3-5.1); Sodium 134 mmol/L (135-145); Total Protein 6.9 g/dL (6.5-8.0)
[2022-11-22 07:35] LABS: Estimated Glomerular Filt Rate 12
== END 2022-11-22 06:19 | disposition home or self-care (01) ==
LOC: HO.MMNH2L 06:18
PROVIDERS: Visit Provider Family Medicine
DX: N18.6 End stage renal disease (principal)
CPT/HCPCS: 36415; 80053; 85025

== ENCOUNTER 2022-11-29 05:49 | Outpatient (REF) | payer OTHER, SELFPAY ==
[2022-11-29 05:45] LABS: MANUAL DIFF FLAG NO
[2022-11-29 06:45] LABS: Basophils Percent Auto 0.3 % (0-2); Eosinophils Absolute Auto 0.1 X10*3/uL (0.0-0.4); Eosinophils Percent Auto 0.5 % (0-4); Hematocrit 28.8 % (42.0-52.0); Hemoglobin 9.6 g/dl (14.0-18.0); Imm Gran Abs Auto 0.05 X10*3/uL (0.00-0.03); Imm Gran Pct Auto 0.5 % (0.0-0.4); Lymphocytes Percent Auto 21.8 % (20-40); Mean Corpuscular HGB Conc 33.3 g/dl (31.0-36.0); Monocytes Absolute Auto 0.7 X10*3/uL (0.1-1.2); Monocytes Percent Auto 7.3 % (2-11); Neutrophils Absolute Auto 6.3 x10*3/uL (2.0-8.3); Neutrophils Percent Auto 69.6 % (45-73); Platelet Count 221 X10*3/uL (160-400); Red Cell Distribution Width 15.3 % (11.0-16.0); White Blood Count 9.1 X10*3/uL (4.8-10.8)
[2022-11-29 07:22] LABS: Alanine Aminotransferase < 5 U/L (0-40); Albumin Level 2.8 g/dL (3.5-5.0); Alkaline Phosphatase 94 U/L (39-117); Anion Gap 13 (12-20); Aspartate Amino Transferase 14 U/L (5-37); Bilirubin Total 0.6 mg/dL (0.0-1.0); Blood Urea Nitrogen 35 mg/dL (9-16); Calcium 8.4 mg/dL (8.4-10.2); Carbon Dioxide 27 mmol/L (22-29); Chloride 95 mmol/L (96-108); Estimated Glomerular Filt Rate 11; Glucose Random 102 mg/dL (60-115); Potassium 3.8 mmol/L (3.3-5.1); Sodium 131 mmol/L (135-145); Total Protein 6.7 g/dL (6.5-8.0)
== END 2022-11-29 05:50 | disposition home or self-care (01) ==
LOC: HO.MMNH2L 05:49
PROVIDERS: Visit Provider Family Medicine
DX: N18.6 End stage renal disease (principal)
CPT/HCPCS: 36415; 80053; 85025

== ENCOUNTER 2022-12-07 06:22 | Outpatient (REF) | payer OTHER, SELFPAY ==
[2022-12-07 06:03] LABS: MANUAL DIFF FLAG NO
[2022-12-07 06:30] LABS: Basophils Percent Auto 0.4 % (0-2); Eosinophils Absolute Auto 0.2 X10*3/uL (0.0-0.4); Eosinophils Percent Auto 1.9 % (0-4); Hematocrit 30.7 % (42.0-52.0); Hemoglobin 10.1 g/dl (14.0-18.0); Imm Gran Abs Auto 0.03 X10*3/uL (0.00-0.03); Imm Gran Pct Auto 0.4 % (0.0-0.4); Lymphocytes Absolute Auto 2.4 X10*3/uL (1.2-4.9); Lymphocytes Percent Auto 28.9 % (20-40); Mean Corpuscular HGB Conc 32.9 g/dl (31.0-36.0); Mean Corpuscular Hemoglobin 32.4 pg (27.0-33.0); Mean Corpuscular Volume 98.4 fL (80.0-98.0); Mean Platelet Volume 9.6 fL (9.4-12.4); Monocytes Absolute Auto 0.6 X10*3/uL (0.1-1.2); Monocytes Percent Auto 7.4 % (2-11); Neutrophils Absolute Auto 5.2 x10*3/uL (2.0-8.3); Platelet Count 183 X10*3/uL (160-400); Red Blood Count 3.12 X10*6/uL (4.60-5.80); Red Cell Distribution Width 15.8 % (11.0-16.0); White Blood Count 8.4 X10*3/uL (4.8-10.8)
[2022-12-07 07:05] LABS: Anion Gap 19 (12-20); Blood Urea Nitrogen 53 mg/dL (9-16); Carbon Dioxide 22 mmol/L (22-29); Chloride 96 mmol/L (96-108); Glucose Random 166 mg/dL (60-115); Potassium 5.1 mmol/L (3.3-5.1); Sodium 132 mmol/L (135-145)
[2022-12-07 07:33] LABS: Estimated Glomerular Filt Rate 9
== END 2022-12-07 06:23 | disposition home or self-care (01) ==
LOC: HO.MMNH2L 06:22
PROVIDERS: Visit Provider Family Medicine
DX: N18.6 End stage renal disease (principal)
CPT/HCPCS: 36415; 80048; 85025

== ENCOUNTER 2022-12-15 05:36 | Outpatient (REF) | payer OTHER, SELFPAY ==
[2022-12-15 05:38] LABS: MANUAL DIFF FLAG NO
[2022-12-15 05:54] LABS: Alanine Aminotransferase 7 U/L (0-40); Albumin Level 3.1 g/dL (3.5-5.0); Alkaline Phosphatase 79 U/L (39-117); Anion Gap 14 (12-20); Aspartate Amino Transferase 12 U/L (5-37); Bilirubin Total 0.8 mg/dL (0.0-1.0); Blood Urea Nitrogen 22 mg/dL (9-16); Calcium 8.6 mg/dL (8.4-10.2); Carbon Dioxide 27 mmol/L (22-29); Chloride 98 mmol/L (96-108); Estimated Glomerular Filt Rate 15; Glucose Random 77 mg/dL (60-115); Potassium 4.9 mmol/L (3.3-5.1); Sodium 134 mmol/L (135-145); Total Protein 7.3 g/dL (6.5-8.0)
[2022-12-15 05:57] LABS: Basophils Percent Auto 0.4 % (0-2); Eosinophils Absolute Auto 0.1 X10*3/uL (0.0-0.4); Eosinophils Percent Auto 0.8 % (0-4); Imm Gran Abs Auto 0.04 X10*3/uL (0.00-0.03); Imm Gran Pct Auto 0.5 % (0.0-0.4); Lymphocytes Absolute Auto 1.9 X10*3/uL (1.2-4.9); Lymphocytes Percent Auto 23.9 % (20-40); Mean Corpuscular HGB Conc 33.3 g/dl (31.0-36.0); Mean Corpuscular Hemoglobin 33.2 pg (27.0-33.0); Mean Corpuscular Volume 99.7 fL (80.0-98.0); Mean Platelet Volume 8.8 fL (9.4-12.4); Monocytes Absolute Auto 0.5 X10*3/uL (0.1-1.2); Monocytes Percent Auto 6.3 % (2-11); Neutrophils Absolute Auto 5.5 x10*3/uL (2.0-8.3); Neutrophils Percent Auto 68.1 % (45-73); Platelet Count 205 X10*3/uL (160-400); Red Blood Count 3.01 X10*6/uL (4.60-5.80); Red Cell Distribution Width 16.8 % (11.0-16.0)
== END 2022-12-15 05:37 | disposition home or self-care (01) ==
LOC: HO.MMNH2L 05:36
PROVIDERS: Visit Provider Family Medicine
DX: I10 Essential (primary) hypertension (principal)
CPT/HCPCS: 36415; 80053; 85025

== ENCOUNTER 2022-12-20 06:31 | Outpatient (REF) | payer OTHER, SELFPAY ==
[2022-12-20 05:48] LABS: MANUAL DIFF FLAG NO
[2022-12-20 06:04] LABS: Basophils Absolute Auto 0.1 X10*3/uL (0.0-0.2); Basophils Percent Auto 0.7 % (0-2); Eosinophils Absolute Auto 0.1 X10*3/uL (0.0-0.4); Eosinophils Percent Auto 1.1 % (0-4); Hemoglobin 10.4 g/dl (14.0-18.0); Imm Gran Abs Auto 0.02 X10*3/uL (0.00-0.03); Imm Gran Pct Auto 0.3 % (0.0-0.4); Lymphocytes Absolute Auto 2.3 X10*3/uL (1.2-4.9); Lymphocytes Percent Auto 30.9 % (20-40); Mean Corpuscular HGB Conc 31.5 g/dl (31.0-36.0); Mean Corpuscular Hemoglobin 32.2 pg (27.0-33.0); Mean Corpuscular Volume 102.2 fL (80.0-98.0); Monocytes Absolute Auto 0.6 X10*3/uL (0.1-1.2); Monocytes Percent Auto 8.5 % (2-11); Neutrophils Absolute Auto 4.3 x10*3/uL (2.0-8.3); Neutrophils Percent Auto 58.5 % (45-73); Platelet Count 207 X10*3/uL (160-400); Red Blood Count 3.23 X10*6/uL (4.60-5.80); White Blood Count 7.3 X10*3/uL (4.8-10.8)
[2022-12-20 07:04] LABS: Alanine Aminotransferase 7 U/L (0-40); Albumin Level 3.3 g/dL (3.5-5.0); Alkaline Phosphatase 91 U/L (39-117); Anion Gap 16 (12-20); Aspartate Amino Transferase 15 U/L (5-37); Bilirubin Total 0.7 mg/dL (0.0-1.0); Blood Urea Nitrogen 34 mg/dL (9-16); Carbon Dioxide 27 mmol/L (22-29); Chloride 98 mmol/L (96-108); Glucose Random 123 mg/dL (60-115); Potassium 4.5 mmol/L (3.3-5.1); Sodium 136 mmol/L (135-145); Total Protein 7.8 g/dL (6.5-8.0)
[2022-12-20 07:26] LABS: Estimated Glomerular Filt Rate 10
== END 2022-12-20 06:32 | disposition home or self-care (01) ==
LOC: HO.MMNH2L 06:31
PROVIDERS: Visit Provider Family Medicine
DX: N18.6 End stage renal disease (principal)
CPT/HCPCS: 36415; 80053; 85025

== ENCOUNTER 2022-12-27 05:58 | Outpatient (REF) | payer OTHER, SELFPAY ==
[2022-12-27 05:52] LABS: MANUAL DIFF FLAG NO
[2022-12-27 06:37] LABS: Basophils Absolute Auto 0.1 X10*3/uL (0.0-0.2); Basophils Percent Auto 0.6 % (0-2); Eosinophils Absolute Auto 0.1 X10*3/uL (0.0-0.4); Eosinophils Percent Auto 1.2 % (0-4); Hematocrit 33.5 % (42.0-52.0); Hemoglobin 10.8 g/dl (14.0-18.0); Imm Gran Abs Auto 0.02 X10*3/uL (0.00-0.03); Imm Gran Pct Auto 0.3 % (0.0-0.4); Lymphocytes Absolute Auto 2.2 X10*3/uL (1.2-4.9); Lymphocytes Percent Auto 28.4 % (20-40); Mean Corpuscular HGB Conc 32.2 g/dl (31.0-36.0); Mean Corpuscular Hemoglobin 32.6 pg (27.0-33.0); Mean Corpuscular Volume 101.2 fL (80.0-98.0); Mean Platelet Volume 9.4 fL (9.4-12.4); Monocytes Absolute Auto 0.6 X10*3/uL (0.1-1.2); Monocytes Percent Auto 7.4 % (2-11); Neutrophils Absolute Auto 4.8 x10*3/uL (2.0-8.3); Neutrophils Percent Auto 62.1 % (45-73); Platelet Count 183 X10*3/uL (160-400); Red Blood Count 3.31 X10*6/uL (4.60-5.80); White Blood Count 7.7 X10*3/uL (4.8-10.8)
== END 2022-12-27 05:59 | disposition home or self-care (01) ==
LOC: HO.MMNH2L 05:58
PROVIDERS: Visit Provider Family Medicine
DX: N18.6 End stage renal disease (principal)
CPT/HCPCS: 36415; 80048; 85025

== ENCOUNTER 2023-01-03 06:05 | Outpatient (REF) | payer OTHER, SELFPAY ==
[2023-01-03 05:56] LABS: MANUAL DIFF FLAG NO
[2023-01-03 06:19] LABS: Basophils Percent Auto 0.5 % (0-2); Eosinophils Absolute Auto 0.1 X10*3/uL (0.0-0.4); Eosinophils Percent Auto 1.1 % (0-4); Hematocrit 33.3 % (42.0-52.0); Hemoglobin 10.8 g/dl (14.0-18.0); Imm Gran Abs Auto 0.02 X10*3/uL (0.00-0.03); Imm Gran Pct Auto 0.3 % (0.0-0.4); Lymphocytes Absolute Auto 2.2 X10*3/uL (1.2-4.9); Lymphocytes Percent Auto 28.8 % (20-40); Mean Corpuscular HGB Conc 32.4 g/dl (31.0-36.0); Mean Corpuscular Volume 101.8 fL (80.0-98.0); Mean Platelet Volume 9.5 fL (9.4-12.4); Monocytes Absolute Auto 0.5 X10*3/uL (0.1-1.2); Neutrophils Absolute Auto 4.7 x10*3/uL (2.0-8.3); Neutrophils Percent Auto 63.3 % (45-73); Platelet Count 177 X10*3/uL (160-400); Red Blood Count 3.27 X10*6/uL (4.60-5.80); Red Cell Distribution Width 16.2 % (11.0-16.0); White Blood Count 7.5 X10*3/uL (4.8-10.8)
[2023-01-03 08:33] LABS: Alanine Aminotransferase 12 U/L (0-40); Albumin Level 3.5 g/dL (3.5-5.0); Alkaline Phosphatase 93 U/L (39-117); Anion Gap 16 (12-20); Aspartate Amino Transferase 18 U/L (5-37); Bilirubin Total 0.8 mg/dL (0.0-1.0); Blood Urea Nitrogen 36 mg/dL (9-16); Calcium 9.5 mg/dL (8.4-10.2); Carbon Dioxide 25 mmol/L (22-29); Chloride 97 mmol/L (96-108); Estimated Glomerular Filt Rate 12; Glucose Random 97 mg/dL (60-115); Potassium 4.3 mmol/L (3.3-5.1); Sodium 134 mmol/L (135-145); Total Protein 7.9 g/dL (6.5-8.0)
== END 2023-01-03 06:06 | disposition home or self-care (01) ==
LOC: HO.MMNH2L 06:05
PROVIDERS: Visit Provider Family Medicine
DX: N18.6 End stage renal disease (principal)
CPT/HCPCS: 36415; 80053; 85025

== ENCOUNTER 2023-01-10 06:19 | Outpatient (REF) | payer OTHER, SELFPAY ==
[2023-01-10 06:13] LABS: MANUAL DIFF FLAG NO
[2023-01-10 07:11] LABS: Alanine Aminotransferase 17 U/L (0-40); Albumin Level 3.6 g/dL (3.5-5.0); Alkaline Phosphatase 105 U/L (39-117); Anion Gap 21 (12-20); Aspartate Amino Transferase 26 U/L (5-37); Bilirubin Total 0.8 mg/dL (0.0-1.0); Blood Urea Nitrogen 35 mg/dL (9-16); Calcium 9.2 mg/dL (8.4-10.2); Carbon Dioxide 20 mmol/L (22-29); Chloride 97 mmol/L (96-108); Potassium 4.6 mmol/L (3.3-5.1); Sodium 133 mmol/L (135-145); Total Protein 8.8 g/dL (6.5-8.0)
[2023-01-10 07:20] LABS: Basophils Percent Auto 0.4 % (0-2); Eosinophils Absolute Auto 0.1 X10*3/uL (0.0-0.4); Eosinophils Percent Auto 1.7 % (0-4); Hematocrit 38.7 % (42.0-52.0); Hemoglobin 12.4 g/dl (14.0-18.0); Imm Gran Abs Auto 0.01 X10*3/uL (0.00-0.03); Imm Gran Pct Auto 0.1 % (0.0-0.4); Lymphocytes Absolute Auto 2.4 X10*3/uL (1.2-4.9); Lymphocytes Percent Auto 33.6 % (20-40); Mean Corpuscular Hemoglobin 33.2 pg (27.0-33.0); Mean Corpuscular Volume 103.5 fL (80.0-98.0); Mean Platelet Volume 9.7 fL (9.4-12.4); Monocytes Absolute Auto 0.4 X10*3/uL (0.1-1.2); Monocytes Percent Auto 5.9 % (2-11); Neutrophils Absolute Auto 4.2 x10*3/uL (2.0-8.3); Neutrophils Percent Auto 58.3 % (45-73); Platelet Count 155 X10*3/uL (160-400); Red Blood Count 3.74 X10*6/uL (4.60-5.80); Red Cell Distribution Width 16.5 % (11.0-16.0); White Blood Count 7.2 X10*3/uL (4.8-10.8)
[2023-01-10 07:26] LABS: Estimated Glomerular Filt Rate 11; Glucose Random 55 mg/dL (60-115)
== END 2023-01-10 06:20 | disposition home or self-care (01) ==
LOC: HO.MMNH2L 06:19
PROVIDERS: Visit Provider Family Medicine
DX: N18.6 End stage renal disease (principal)
CPT/HCPCS: 36415; 80053; 85025

== ENCOUNTER 2023-01-17 07:17 | Outpatient (REF) | payer OTHER, SELFPAY ==
[2023-01-17 06:11] LABS: MANUAL DIFF FLAG NO
[2023-01-17 06:50] LABS: Basophils Percent Auto 0.4 % (0-2); Eosinophils Absolute Auto 0.1 X10*3/uL (0.0-0.4); Eosinophils Percent Auto 1.1 % (0-4); Hematocrit 34.9 % (42.0-52.0); Hemoglobin 11.3 g/dl (14.0-18.0); Imm Gran Abs Auto 0.02 X10*3/uL (0.00-0.03); Imm Gran Pct Auto 0.3 % (0.0-0.4); Lymphocytes Absolute Auto 2.2 X10*3/uL (1.2-4.9); Lymphocytes Percent Auto 31.3 % (20-40); Mean Corpuscular HGB Conc 32.4 g/dl (31.0-36.0); Mean Corpuscular Hemoglobin 32.9 pg (27.0-33.0); Mean Corpuscular Volume 101.7 fL (80.0-98.0); Mean Platelet Volume 9.9 fL (9.4-12.4); Monocytes Absolute Auto 0.4 X10*3/uL (0.1-1.2); Monocytes Percent Auto 6.2 % (2-11); Neutrophils Absolute Auto 4.3 x10*3/uL (2.0-8.3); Neutrophils Percent Auto 60.7 % (45-73); Platelet Count 129 X10*3/uL (160-400); Red Blood Count 3.43 X10*6/uL (4.60-5.80); Red Cell Distribution Width 15.2 % (11.0-16.0); White Blood Count 7.1 X10*3/uL (4.8-10.8)
[2023-01-17 08:09] LABS: Anion Gap 18 (12-20); Blood Urea Nitrogen 40 mg/dL (9-16); Calcium 9.5 mg/dL (8.4-10.2); Carbon Dioxide 26 mmol/L (22-29); Chloride 96 mmol/L (96-108); Glucose Random 109 mg/dL (60-115); Potassium 4.4 mmol/L (3.3-5.1); Sodium 136 mmol/L (135-145)
[2023-01-17 08:25] LABS: Estimated Glomerular Filt Rate 11
== END 2023-01-17 07:18 | disposition home or self-care (01) ==
LOC: HO.MMNH2L 07:17
PROVIDERS: Visit Provider Family Medicine
DX: N18.6 End stage renal disease (principal)
CPT/HCPCS: 36415; 80048; 85025

== ENCOUNTER 2023-01-24 06:15 | Outpatient (REF) | payer OTHER, SELFPAY ==
[2023-01-24 05:43] LABS: MANUAL DIFF FLAG NO
[2023-01-24 06:09] LABS: Basophils Percent Auto 0.4 % (0-2); Eosinophils Absolute Auto 0.1 X10*3/uL (0.0-0.4); Eosinophils Percent Auto 1.2 % (0-4); Hematocrit 35.4 % (42.0-52.0); Hemoglobin 11.7 g/dl (14.0-18.0); Imm Gran Abs Auto 0.01 X10*3/uL (0.00-0.03); Imm Gran Pct Auto 0.1 % (0.0-0.4); Lymphocytes Absolute Auto 2.3 X10*3/uL (1.2-4.9); Lymphocytes Percent Auto 34.4 % (20-40); Mean Corpuscular HGB Conc 33.1 g/dl (31.0-36.0); Mean Corpuscular Hemoglobin 33.4 pg (27.0-33.0); Mean Corpuscular Volume 101.1 fL (80.0-98.0); Mean Platelet Volume 9.9 fL (9.4-12.4); Monocytes Absolute Auto 0.4 X10*3/uL (0.1-1.2); Monocytes Percent Auto 6.6 % (2-11); Neutrophils Absolute Auto 3.8 x10*3/uL (2.0-8.3); Neutrophils Percent Auto 57.3 % (45-73); Platelet Count 143 X10*3/uL (160-400); Red Cell Distribution Width 14.6 % (11.0-16.0); White Blood Count 6.7 X10*3/uL (4.8-10.8)
[2023-01-24 06:21] LABS: Anion Gap 18 (12-20); Blood Urea Nitrogen 45 mg/dL (9-16); Calcium 9.5 mg/dL (8.4-10.2); Carbon Dioxide 25 mmol/L (22-29); Chloride 97 mmol/L (96-108); Glucose Random 136 mg/dL (60-115); Potassium 4.9 mmol/L (3.3-5.1); Sodium 135 mmol/L (135-145)
[2023-01-24 06:23] LABS: Estimated Glomerular Filt Rate 10
== END 2023-01-24 06:16 | disposition home or self-care (01) ==
LOC: HO.MMNH2L 06:15
PROVIDERS: Visit Provider Family Medicine
DX: N18.6 End stage renal disease (principal)
CPT/HCPCS: 36415; 80048; 85025

== ENCOUNTER 2023-01-31 06:03 | Outpatient (REF) | payer OTHER, SELFPAY ==
[2023-01-31 05:59] LABS: MANUAL DIFF FLAG NO
[2023-01-31 06:40] LABS: Basophils Percent Auto 0.5 % (0-2); Eosinophils Absolute Auto 0.1 X10*3/uL (0.0-0.4); Eosinophils Percent Auto 1.6 % (0-4); Hematocrit 33.5 % (42.0-52.0); Hemoglobin 11.3 g/dl (14.0-18.0); Imm Gran Abs Auto 0.02 X10*3/uL (0.00-0.03); Imm Gran Pct Auto 0.3 % (0.0-0.4); Lymphocytes Absolute Auto 1.7 X10*3/uL (1.2-4.9); Lymphocytes Percent Auto 23.5 % (20-40); Mean Corpuscular HGB Conc 33.7 g/dl (31.0-36.0); Mean Corpuscular Hemoglobin 32.9 pg (27.0-33.0); Mean Corpuscular Volume 97.7 fL (80.0-98.0); Mean Platelet Volume 9.8 fL (9.4-12.4); Monocytes Absolute Auto 0.6 X10*3/uL (0.1-1.2); Monocytes Percent Auto 8.1 % (2-11); Neutrophils Absolute Auto 4.9 x10*3/uL (2.0-8.3); Platelet Count 144 X10*3/uL (160-400); Red Blood Count 3.43 X10*6/uL (4.60-5.80); Red Cell Distribution Width 14.4 % (11.0-16.0); White Blood Count 7.4 X10*3/uL (4.8-10.8)
[2023-01-31 07:33] LABS: Anion Gap 19 (12-20); Blood Urea Nitrogen 46 mg/dL (9-16); Calcium 9.3 mg/dL (8.4-10.2); Carbon Dioxide 26 mmol/L (22-29); Chloride 95 mmol/L (96-108); Glucose Random 201 mg/dL (60-115); Potassium 4.7 mmol/L (3.3-5.1); Sodium 135 mmol/L (135-145)
[2023-01-31 07:41] LABS: Estimated Glomerular Filt Rate 10
== END 2023-01-31 06:04 | disposition home or self-care (01) ==
LOC: HO.MMNH2L 06:03
PROVIDERS: Visit Provider Family Medicine
DX: N18.6 End stage renal disease (principal)
CPT/HCPCS: 36415; 80048; 85025

== ENCOUNTER 2023-02-07 06:17 | Outpatient (REF) | payer OTHER, SELFPAY ==
[2023-02-07 06:03] LABS: MANUAL DIFF FLAG NO
[2023-02-07 06:51] LABS: Basophils Percent Auto 0.4 % (0-2); Eosinophils Absolute Auto 0.2 X10*3/uL (0.0-0.4); Eosinophils Percent Auto 2.3 % (0-4); Hematocrit 33.6 % (42.0-52.0); Hemoglobin 11.1 g/dl (14.0-18.0); Imm Gran Abs Auto 0.02 X10*3/uL (0.00-0.03); Imm Gran Pct Auto 0.3 % (0.0-0.4); Lymphocytes Absolute Auto 1.9 X10*3/uL (1.2-4.9); Lymphocytes Percent Auto 26.3 % (20-40); Mean Corpuscular Hemoglobin 32.6 pg (27.0-33.0); Mean Corpuscular Volume 98.5 fL (80.0-98.0); Mean Platelet Volume 9.8 fL (9.4-12.4); Monocytes Absolute Auto 0.5 X10*3/uL (0.1-1.2); Monocytes Percent Auto 6.6 % (2-11); Neutrophils Absolute Auto 4.7 x10*3/uL (2.0-8.3); Neutrophils Percent Auto 64.1 % (45-73); Platelet Count 166 X10*3/uL (160-400); Red Blood Count 3.41 X10*6/uL (4.60-5.80); White Blood Count 7.4 X10*3/uL (4.8-10.8)
[2023-02-07 07:04] LABS: Alanine Aminotransferase 19 U/L (0-40); Albumin Level 3.5 g/dL (3.5-5.0); Alkaline Phosphatase 120 U/L (39-117); Anion Gap 23 (12-20); Aspartate Amino Transferase 19 U/L (5-37); Bilirubin Total 0.6 mg/dL (0.0-1.0); Blood Urea Nitrogen 53 mg/dL (9-16); Calcium 9.3 mg/dL (8.4-10.2); Carbon Dioxide 23 mmol/L (22-29); Chloride 94 mmol/L (96-108); Estimated Glomerular Filt Rate 10; Glucose Random 125 mg/dL (60-115); Potassium 4.4 mmol/L (3.3-5.1); Sodium 136 mmol/L (135-145)
== END 2023-02-07 06:18 | disposition home or self-care (01) ==
LOC: HO.MMNH2L 06:17
PROVIDERS: Visit Provider Family Medicine
DX: N18.6 End stage renal disease (principal)
CPT/HCPCS: 36415; 80053; 85025

== ENCOUNTER 2023-02-14 05:59 | Outpatient (REF) | payer OTHER, SELFPAY ==
[2023-02-14 05:55] LABS: MANUAL DIFF FLAG NO
[2023-02-14 06:04] LABS: Basophils Percent Auto 0.5 % (0-2); Eosinophils Absolute Auto 0.1 X10*3/uL (0.0-0.4); Eosinophils Percent Auto 1.3 % (0-4); Hematocrit 30.9 % (42.0-52.0); Hemoglobin 10.4 g/dl (14.0-18.0); Imm Gran Abs Auto 0.02 X10*3/uL (0.00-0.03); Imm Gran Pct Auto 0.3 % (0.0-0.4); Lymphocytes Absolute Auto 2.2 X10*3/uL (1.2-4.9); Lymphocytes Percent Auto 26.9 % (20-40); Mean Corpuscular HGB Conc 33.7 g/dl (31.0-36.0); Mean Corpuscular Volume 98.1 fL (80.0-98.0); Mean Platelet Volume 9.4 fL (9.4-12.4); Monocytes Absolute Auto 0.7 X10*3/uL (0.1-1.2); Monocytes Percent Auto 8.1 % (2-11); Neutrophils Percent Auto 62.9 % (45-73); Platelet Count 180 X10*3/uL (160-400); Red Blood Count 3.15 X10*6/uL (4.60-5.80); Red Cell Distribution Width 13.7 % (11.0-16.0)
[2023-02-14 06:45] LABS: Anion Gap 20 (12-20); Blood Urea Nitrogen 47 mg/dL (9-16); Calcium 9.1 mg/dL (8.4-10.2); Carbon Dioxide 24 mmol/L (22-29); Chloride 97 mmol/L (96-108); Estimated Glomerular Filt Rate 9; Glucose Random 152 mg/dL (60-115); Potassium 4.2 mmol/L (3.3-5.1); Sodium 137 mmol/L (135-145)
== END 2023-02-14 06:00 | disposition home or self-care (01) ==
LOC: HO.MMNH2L 05:59
PROVIDERS: Visit Provider Family Medicine
DX: N18.6 End stage renal disease (principal)
CPT/HCPCS: 36415; 80048; 85025

== ENCOUNTER 2023-02-21 06:15 | Outpatient (REF) | payer OTHER, SELFPAY ==
[2023-02-21 06:03] LABS: MANUAL DIFF FLAG NO
[2023-02-21 06:47] LABS: Basophils Percent Auto 0.4 % (0-2); Eosinophils Absolute Auto 0.2 X10*3/uL (0.0-0.4); Eosinophils Percent Auto 2.1 % (0-4); Hematocrit 31.8 % (42.0-52.0); Hemoglobin 10.9 g/dl (14.0-18.0); Imm Gran Abs Auto 0.03 X10*3/uL (0.00-0.03); Imm Gran Pct Auto 0.4 % (0.0-0.4); Lymphocytes Absolute Auto 2.2 X10*3/uL (1.2-4.9); Lymphocytes Percent Auto 30.2 % (20-40); Mean Corpuscular HGB Conc 34.3 g/dl (31.0-36.0); Mean Corpuscular Volume 96.4 fL (80.0-98.0); Mean Platelet Volume 9.7 fL (9.4-12.4); Monocytes Absolute Auto 0.6 X10*3/uL (0.1-1.2); Monocytes Percent Auto 8.2 % (2-11); Neutrophils Absolute Auto 4.2 x10*3/uL (2.0-8.3); Neutrophils Percent Auto 58.7 % (45-73); Platelet Count 164 X10*3/uL (160-400); Red Cell Distribution Width 13.8 % (11.0-16.0); White Blood Count 7.1 X10*3/uL (4.8-10.8)
[2023-02-21 10:29] LABS: Alanine Aminotransferase 21 U/L (0-40); Albumin Level 3.5 g/dL (3.5-5.0); Alkaline Phosphatase 130 U/L (39-117); Anion Gap 19 (12-20); Aspartate Amino Transferase 21 U/L (5-37); Bilirubin Total 0.5 mg/dL (0.0-1.0); Blood Urea Nitrogen 42 mg/dL (9-16); Calcium 9.4 mg/dL (8.4-10.2); Carbon Dioxide 26 mmol/L (22-29); Chloride 95 mmol/L (96-108); Glucose Random 82 mg/dL (60-115); Potassium 4.5 mmol/L (3.3-5.1); Sodium 135 mmol/L (135-145); Total Protein 7.8 g/dL (6.5-8.0)
[2023-02-21 11:04] LABS: Estimated Glomerular Filt Rate 10
== END 2023-02-21 06:16 | disposition home or self-care (01) ==
LOC: HO.MMNH2L 06:15
PROVIDERS: Visit Provider Family Medicine
DX: N18.6 End stage renal disease (principal)
CPT/HCPCS: 36415; 80053; 85025

== ENCOUNTER 2023-02-28 06:16 | Outpatient (REF) | payer OTHER, SELFPAY ==
[2023-02-28 05:55] LABS: MANUAL DIFF FLAG NO
[2023-02-28 07:04] LABS: Basophils Percent Auto 0.3 % (0-2); Eosinophils Absolute Auto 0.1 X10*3/uL (0.0-0.4); Eosinophils Percent Auto 1.1 % (0-4); Hematocrit 30.1 % (42.0-52.0); Hemoglobin 10.2 g/dl (14.0-18.0); Imm Gran Abs Auto 0.03 X10*3/uL (0.00-0.03); Imm Gran Pct Auto 0.3 % (0.0-0.4); Lymphocytes Absolute Auto 2.2 X10*3/uL (1.2-4.9); Lymphocytes Percent Auto 24.3 % (20-40); Mean Corpuscular HGB Conc 33.9 g/dl (31.0-36.0); Mean Corpuscular Hemoglobin 33.1 pg (27.0-33.0); Mean Corpuscular Volume 97.7 fL (80.0-98.0); Mean Platelet Volume 9.7 fL (9.4-12.4); Monocytes Absolute Auto 0.8 X10*3/uL (0.1-1.2); Monocytes Percent Auto 8.6 % (2-11); Neutrophils Percent Auto 65.4 % (45-73); Platelet Count 166 X10*3/uL (160-400); Red Blood Count 3.08 X10*6/uL (4.60-5.80); Red Cell Distribution Width 13.8 % (11.0-16.0); White Blood Count 9.1 X10*3/uL (4.8-10.8)
[2023-02-28 07:37] LABS: Anion Gap 18 (12-20); Blood Urea Nitrogen 36 mg/dL (9-16); Calcium 9.4 mg/dL (8.4-10.2); Carbon Dioxide 26 mmol/L (22-29); Chloride 97 mmol/L (96-108); Estimated Glomerular Filt Rate 10; Glucose Random 112 mg/dL (60-115); Potassium 4.2 mmol/L (3.3-5.1); Sodium 137 mmol/L (135-145)
== END 2023-02-28 06:17 | disposition home or self-care (01) ==
LOC: HO.MMNH2L 06:16
PROVIDERS: Visit Provider Family Medicine
DX: N18.6 End stage renal disease (principal)
CPT/HCPCS: 36415; 80048; 85025

== ENCOUNTER 2023-03-07 06:13 | Outpatient (REF) | payer OTHER, SELFPAY ==
[2023-03-07 06:02] LABS: MANUAL DIFF FLAG NO
[2023-03-07 06:54] LABS: Basophils Percent Auto 0.3 % (0-2); Eosinophils Absolute Auto 0.1 X10*3/uL (0.0-0.4); Hematocrit 31.1 % (42.0-52.0); Hemoglobin 10.2 g/dl (14.0-18.0); Imm Gran Abs Auto 0.03 X10*3/uL (0.00-0.03); Imm Gran Pct Auto 0.4 % (0.0-0.4); Lymphocytes Absolute Auto 2.1 X10*3/uL (1.2-4.9); Lymphocytes Percent Auto 29.7 % (20-40); Mean Corpuscular HGB Conc 32.8 g/dl (31.0-36.0); Mean Corpuscular Hemoglobin 32.1 pg (27.0-33.0); Mean Corpuscular Volume 97.8 fL (80.0-98.0); Mean Platelet Volume 9.2 fL (9.4-12.4); Monocytes Absolute Auto 0.6 X10*3/uL (0.1-1.2); Monocytes Percent Auto 8.9 % (2-11); Neutrophils Absolute Auto 4.2 x10*3/uL (2.0-8.3); Neutrophils Percent Auto 58.7 % (45-73); Platelet Count 200 X10*3/uL (160-400); Red Blood Count 3.18 X10*6/uL (4.60-5.80); Red Cell Distribution Width 14.1 % (11.0-16.0); White Blood Count 7.2 X10*3/uL (4.8-10.8)
[2023-03-07 07:20] LABS: Alanine Aminotransferase 14 U/L (0-40); Albumin Level 3.5 g/dL (3.5-5.0); Alkaline Phosphatase 118 U/L (39-117); Anion Gap 18 (12-20); Aspartate Amino Transferase 15 U/L (5-37); Bilirubin Total 0.4 mg/dL (0.0-1.0); Blood Urea Nitrogen 40 mg/dL (9-16); Calcium 9.4 mg/dL (8.4-10.2); Carbon Dioxide 27 mmol/L (22-29); Chloride 96 mmol/L (96-108); Glucose Random 84 mg/dL (60-115); Potassium 4.1 mmol/L (3.3-5.1); Sodium 137 mmol/L (135-145); Total Protein 7.8 g/dL (6.5-8.0)
[2023-03-07 08:08] LABS: Estimated Glomerular Filt Rate 11
== END 2023-03-07 06:14 | disposition home or self-care (01) ==
LOC: HO.MMNH2L 06:13
PROVIDERS: Visit Provider Family Medicine
DX: N18.6 End stage renal disease (principal)
CPT/HCPCS: 36415; 80053; 85025

== ENCOUNTER 2023-03-15 06:37 | Outpatient (REF) | payer OTHER, SELFPAY ==
[2023-03-15 06:31] LABS: MANUAL DIFF FLAG NO
[2023-03-15 07:17] LABS: Basophils Percent Auto 0.4 % (0-2); Eosinophils Absolute Auto 0.1 X10*3/uL (0.0-0.4); Eosinophils Percent Auto 1.4 % (0-4); Hematocrit 31.4 % (42.0-52.0); Hemoglobin 10.7 g/dl (14.0-18.0); Imm Gran Abs Auto 0.02 X10*3/uL (0.00-0.03); Imm Gran Pct Auto 0.3 % (0.0-0.4); Lymphocytes Absolute Auto 1.8 X10*3/uL (1.2-4.9); Lymphocytes Percent Auto 23.6 % (20-40); Mean Corpuscular HGB Conc 34.1 g/dl (31.0-36.0); Mean Corpuscular Hemoglobin 32.9 pg (27.0-33.0); Mean Corpuscular Volume 96.6 fL (80.0-98.0); Mean Platelet Volume 8.7 fL (9.4-12.4); Monocytes Absolute Auto 0.7 X10*3/uL (0.1-1.2); Monocytes Percent Auto 9.2 % (2-11); Neutrophils Percent Auto 65.1 % (45-73); Platelet Count 243 X10*3/uL (160-400); Red Blood Count 3.25 X10*6/uL (4.60-5.80); Red Cell Distribution Width 14.5 % (11.0-16.0); White Blood Count 7.7 X10*3/uL (4.8-10.8)
[2023-03-15 07:39] LABS: Anion Gap 19 (12-20); Blood Urea Nitrogen 49 mg/dL (9-16); Calcium 9.1 mg/dL (8.4-10.2); Carbon Dioxide 24 mmol/L (22-29); Chloride 96 mmol/L (96-108); Estimated Glomerular Filt Rate 8; Glucose Random 124 mg/dL (60-115); Potassium 4.1 mmol/L (3.3-5.1); Sodium 135 mmol/L (135-145)
== END 2023-03-15 06:38 | disposition home or self-care (01) ==
LOC: HO.MMNH2L 06:37
PROVIDERS: Visit Provider Family Medicine
DX: N18.6 End stage renal disease (principal)
CPT/HCPCS: 36415; 80048; 85025

== ENCOUNTER 2023-03-21 05:56 | Outpatient (REF) | payer OTHER, SELFPAY ==
[2023-03-21 05:51] LABS: MANUAL DIFF FLAG NO
[2023-03-21 06:55] LABS: Basophils Percent Auto 0.2 % (0-2); Eosinophils Absolute Auto 0.2 X10*3/uL (0.0-0.4); Eosinophils Percent Auto 2.1 % (0-4); Hematocrit 30.9 % (42.0-52.0); Hemoglobin 10.2 g/dl (14.0-18.0); Imm Gran Abs Auto 0.04 X10*3/uL (0.00-0.03); Imm Gran Pct Auto 0.5 % (0.0-0.4); Lymphocytes Absolute Auto 1.9 X10*3/uL (1.2-4.9); Lymphocytes Percent Auto 21.1 % (20-40); Mean Corpuscular Hemoglobin 32.3 pg (27.0-33.0); Mean Corpuscular Volume 97.8 fL (80.0-98.0); Mean Platelet Volume 8.9 fL (9.4-12.4); Monocytes Absolute Auto 0.8 X10*3/uL (0.1-1.2); Monocytes Percent Auto 9.4 % (2-11); Neutrophils Absolute Auto 5.9 x10*3/uL (2.0-8.3); Neutrophils Percent Auto 66.7 % (45-73); Platelet Count 219 X10*3/uL (160-400); Red Blood Count 3.16 X10*6/uL (4.60-5.80); White Blood Count 8.9 X10*3/uL (4.8-10.8)
[2023-03-21 07:02] LABS: Alanine Aminotransferase 14 U/L (0-40); Albumin Level 3.4 g/dL (3.5-5.0); Alkaline Phosphatase 102 U/L (39-117); Anion Gap 18 (12-20); Aspartate Amino Transferase 18 U/L (5-37); Bilirubin Total 0.5 mg/dL (0.0-1.0); Blood Urea Nitrogen 42 mg/dL (9-16); Calcium 9.2 mg/dL (8.4-10.2); Carbon Dioxide 27 mmol/L (22-29); Chloride 97 mmol/L (96-108); Glucose Random 121 mg/dL (60-115); Potassium 3.9 mmol/L (3.3-5.1); Sodium 138 mmol/L (135-145); Total Protein 7.6 g/dL (6.5-8.0)
[2023-03-21 07:29] LABS: Estimated Glomerular Filt Rate 11
== END 2023-03-21 05:57 | disposition home or self-care (01) ==
LOC: HO.MMNH2L 05:56
PROVIDERS: Visit Provider Family Medicine
DX: N18.6 End stage renal disease (principal)
CPT/HCPCS: 36415; 80053; 85025

== ENCOUNTER 2023-03-28 07:13 | Outpatient (REF) | payer OTHER, SELFPAY ==
[2023-03-28 06:08] LABS: MANUAL DIFF FLAG NO
[2023-03-28 06:56] LABS: Basophils Percent Auto 0.4 % (0-2); Eosinophils Absolute Auto 0.2 X10*3/uL (0.0-0.4); Eosinophils Percent Auto 2.3 % (0-4); Hematocrit 30.7 % (42.0-52.0); Hemoglobin 10.1 g/dl (14.0-18.0); Imm Gran Abs Auto 0.04 X10*3/uL (0.00-0.03); Imm Gran Pct Auto 0.4 % (0.0-0.4); Lymphocytes Absolute Auto 1.9 X10*3/uL (1.2-4.9); Lymphocytes Percent Auto 21.1 % (20-40); Mean Corpuscular HGB Conc 32.9 g/dl (31.0-36.0); Mean Corpuscular Hemoglobin 32.5 pg (27.0-33.0); Mean Corpuscular Volume 98.7 fL (80.0-98.0); Mean Platelet Volume 9.1 fL (9.4-12.4); Monocytes Absolute Auto 0.7 X10*3/uL (0.1-1.2); Monocytes Percent Auto 7.8 % (2-11); Neutrophils Absolute Auto 6.2 x10*3/uL (2.0-8.3); Platelet Count 244 X10*3/uL (160-400); Red Blood Count 3.11 X10*6/uL (4.60-5.80); Red Cell Distribution Width 14.8 % (11.0-16.0); White Blood Count 9.1 X10*3/uL (4.8-10.8)
[2023-03-28 07:13] LABS: Anion Gap 18 (12-20); Blood Urea Nitrogen 34 mg/dL (9-16); Carbon Dioxide 27 mmol/L (22-29); Chloride 97 mmol/L (96-108); Glucose Random 99 mg/dL (60-115); Potassium 3.8 mmol/L (3.3-5.1); Sodium 138 mmol/L (135-145)
[2023-03-28 07:57] LABS: Estimated Glomerular Filt Rate 10
== END 2023-03-28 07:14 | disposition home or self-care (01) ==
LOC: HO.MMNH1L 07:13
PROVIDERS: Visit Provider Family Medicine
DX: N18.6 End stage renal disease (principal)
CPT/HCPCS: 36415; 80048; 85025

== ENCOUNTER 2023-04-12 05:56 | Outpatient (REF) | payer OTHER, SELFPAY ==
[2023-04-12 05:59] LABS: MANUAL DIFF FLAG NO
[2023-04-12 06:19] LABS: Basophils Percent Auto 0.3 % (0-2); Eosinophils Absolute Auto 0.3 X10*3/uL (0.0-0.4); Eosinophils Percent Auto 3.3 % (0-4); Hematocrit 27.4 % (42.0-52.0); Hemoglobin 9.4 g/dl (14.0-18.0); Imm Gran Abs Auto 0.04 X10*3/uL (0.00-0.03); Imm Gran Pct Auto 0.5 % (0.0-0.4); Lymphocytes Absolute Auto 1.8 X10*3/uL (1.2-4.9); Lymphocytes Percent Auto 22.6 % (20-40); Mean Corpuscular HGB Conc 34.3 g/dl (31.0-36.0); Mean Corpuscular Hemoglobin 32.9 pg (27.0-33.0); Mean Corpuscular Volume 95.8 fL (80.0-98.0); Mean Platelet Volume 9.1 fL (9.4-12.4); Monocytes Absolute Auto 0.6 X10*3/uL (0.1-1.2); Monocytes Percent Auto 7.9 % (2-11); Neutrophils Absolute Auto 5.2 x10*3/uL (2.0-8.3); Neutrophils Percent Auto 65.4 % (45-73); Platelet Count 196 X10*3/uL (160-400); Red Blood Count 2.86 X10*6/uL (4.60-5.80); Red Cell Distribution Width 14.6 % (11.0-16.0)
[2023-04-12 06:42] LABS: Alanine Aminotransferase 35 U/L (0-40); Albumin Level 3.2 g/dL (3.5-5.0); Alkaline Phosphatase 107 U/L (39-117); Anion Gap 19 (12-20); Aspartate Amino Transferase 28 U/L (5-37); Bilirubin Total 0.4 mg/dL (0.0-1.0); Blood Urea Nitrogen 61 mg/dL (9-16); Calcium 9.1 mg/dL (8.4-10.2); Carbon Dioxide 22 mmol/L (22-29); Chloride 91 mmol/L (96-108); Estimated Glomerular Filt Rate 8; Glucose Random 138 mg/dL (60-115); Potassium 3.9 mmol/L (3.3-5.1); Sodium 128 mmol/L (135-145); Total Protein 7.2 g/dL (6.5-8.0)
== END 2023-04-12 05:57 | disposition home or self-care (01) ==
LOC: HO.MMNH2L 05:56
PROVIDERS: Visit Provider Family Medicine
DX: N18.6 End stage renal disease (principal)
CPT/HCPCS: 36415; 80053; 85025

== ENCOUNTER 2023-04-18 06:15 | Outpatient (REF) | payer OTHER, SELFPAY ==
[2023-04-18 05:58] LABS: MANUAL DIFF FLAG NO
[2023-04-18 06:27] LABS: Basophils Percent Auto 0.4 % (0-2); Eosinophils Absolute Auto 0.2 X10*3/uL (0.0-0.4); Eosinophils Percent Auto 1.7 % (0-4); Hematocrit 26.9 % (42.0-52.0); Hemoglobin 8.9 g/dl (14.0-18.0); Imm Gran Abs Auto 0.04 X10*3/uL (0.00-0.03); Imm Gran Pct Auto 0.4 % (0.0-0.4); Lymphocytes Absolute Auto 2.2 X10*3/uL (1.2-4.9); Lymphocytes Percent Auto 22.1 % (20-40); Mean Corpuscular HGB Conc 33.1 g/dl (31.0-36.0); Mean Corpuscular Hemoglobin 33.1 pg (27.0-33.0); Mean Platelet Volume 9.4 fL (9.4-12.4); Monocytes Absolute Auto 0.8 X10*3/uL (0.1-1.2); Monocytes Percent Auto 8.1 % (2-11); Neutrophils Absolute Auto 6.6 x10*3/uL (2.0-8.3); Neutrophils Percent Auto 67.3 % (45-73); Platelet Count 192 X10*3/uL (160-400); Red Blood Count 2.69 X10*6/uL (4.60-5.80); White Blood Count 9.8 X10*3/uL (4.8-10.8)
[2023-04-18 06:47] LABS: Anion Gap 19 (12-20); Blood Urea Nitrogen 41 mg/dL (9-16); Calcium 8.9 mg/dL (8.4-10.2); Carbon Dioxide 27 mmol/L (22-29); Chloride 97 mmol/L (96-108); Glucose Random 85 mg/dL (60-115); Potassium 3.8 mmol/L (3.3-5.1); Sodium 139 mmol/L (135-145)
[2023-04-18 06:49] LABS: Estimated Glomerular Filt Rate 12
== END 2023-04-18 06:16 | disposition home or self-care (01) ==
LOC: HO.MMNH2L 06:15
PROVIDERS: Visit Provider Family Medicine
DX: N18.6 End stage renal disease (principal)
CPT/HCPCS: 36415; 80048; 85025

== ENCOUNTER 2023-04-25 06:33 | Outpatient (REF) | payer OTHER, SELFPAY ==
[2023-04-25 06:41] LABS: MANUAL DIFF FLAG NO
[2023-04-25 07:16] LABS: Basophils Percent Auto 0.2 % (0-2); Eosinophils Absolute Auto 0.2 X10*3/uL (0.0-0.4); Eosinophils Percent Auto 1.8 % (0-4); Hematocrit 27.2 % (42.0-52.0); Imm Gran Abs Auto 0.03 X10*3/uL (0.00-0.03); Imm Gran Pct Auto 0.4 % (0.0-0.4); Lymphocytes Absolute Auto 2.1 X10*3/uL (1.2-4.9); Lymphocytes Percent Auto 25.3 % (20-40); Mean Corpuscular HGB Conc 33.1 g/dl (31.0-36.0); Mean Corpuscular Hemoglobin 33.3 pg (27.0-33.0); Mean Corpuscular Volume 100.7 fL (80.0-98.0); Mean Platelet Volume 9.3 fL (9.4-12.4); Monocytes Absolute Auto 0.7 X10*3/uL (0.1-1.2); Neutrophils Absolute Auto 5.2 x10*3/uL (2.0-8.3); Neutrophils Percent Auto 63.3 % (45-73); Platelet Count 231 X10*3/uL (160-400); Red Cell Distribution Width 15.6 % (11.0-16.0); White Blood Count 8.3 X10*3/uL (4.8-10.8)
[2023-04-25 08:40] LABS: Alanine Aminotransferase 18 U/L (0-40); Albumin Level 3.3 g/dL (3.5-5.0); Alkaline Phosphatase 107 U/L (39-117); Anion Gap 18 (12-20); Aspartate Amino Transferase 18 U/L (5-37); Bilirubin Total 0.5 mg/dL (0.0-1.0); Blood Urea Nitrogen 35 mg/dL (9-16); Calcium 8.8 mg/dL (8.4-10.2); Carbon Dioxide 26 mmol/L (22-29); Chloride 96 mmol/L (96-108); Estimated Glomerular Filt Rate 12; Glucose Random 108 mg/dL (60-115); Potassium 4.1 mmol/L (3.3-5.1); Sodium 136 mmol/L (135-145); Total Protein 7.2 g/dL (6.5-8.0)
== END 2023-04-25 06:34 | disposition home or self-care (01) ==
LOC: HO.MMNH2L 06:33
PROVIDERS: Visit Provider Family Medicine
DX: N18.6 End stage renal disease (principal)
CPT/HCPCS: 36415; 80053; 85025

== ENCOUNTER 2023-05-02 06:12 | Outpatient (REF) | payer OTHER, SELFPAY ==
[2023-05-02 06:09] LABS: MANUAL DIFF FLAG NO
[2023-05-02 06:47] LABS: Basophils Absolute Auto 0.1 X10*3/uL (0.0-0.2); Basophils Percent Auto 0.5 % (0-2); Eosinophils Absolute Auto 0.1 X10*3/uL (0.0-0.4); Eosinophils Percent Auto 1.1 % (0-4); Hematocrit 30.4 % (42.0-52.0); Hemoglobin 9.9 g/dl (14.0-18.0); Imm Gran Abs Auto 0.06 X10*3/uL (0.00-0.03); Imm Gran Pct Auto 0.6 % (0.0-0.4); Lymphocytes Absolute Auto 2.4 X10*3/uL (1.2-4.9); Lymphocytes Percent Auto 24.1 % (20-40); Mean Corpuscular HGB Conc 32.6 g/dl (31.0-36.0); Mean Corpuscular Hemoglobin 34.1 pg (27.0-33.0); Mean Corpuscular Volume 104.8 fL (80.0-98.0); Mean Platelet Volume 9.3 fL (9.4-12.4); Monocytes Absolute Auto 0.8 X10*3/uL (0.1-1.2); Monocytes Percent Auto 8.2 % (2-11); Neutrophils Absolute Auto 6.4 x10*3/uL (2.0-8.3); Neutrophils Percent Auto 65.5 % (45-73); Platelet Count 194 X10*3/uL (160-400); Red Cell Distribution Width 16.3 % (11.0-16.0); White Blood Count 9.8 X10*3/uL (4.8-10.8)
[2023-05-02 07:46] LABS: Anion Gap 21 (12-20); Blood Urea Nitrogen 28 mg/dL (9-16); Calcium 9.3 mg/dL (8.4-10.2); Carbon Dioxide 22 mmol/L (22-29); Chloride 97 mmol/L (96-108); Estimated Glomerular Filt Rate 11; Glucose Random 74 mg/dL (60-115); Potassium 4.5 mmol/L (3.3-5.1); Sodium 135 mmol/L (135-145)
== END 2023-05-02 06:13 | disposition home or self-care (01) ==
LOC: HO.MMNH2L 06:12
PROVIDERS: Visit Provider Family Medicine
DX: N18.6 End stage renal disease (principal)
CPT/HCPCS: 36415; 80048; 85025

== ENCOUNTER 2023-05-09 06:16 | Outpatient (REF) | payer OTHER, SELFPAY ==
[2023-05-09 06:09] LABS: MANUAL DIFF FLAG NO
[2023-05-09 06:54] LABS: Basophils Percent Auto 0.4 % (0-2); Eosinophils Absolute Auto 0.2 X10*3/uL (0.0-0.4); Eosinophils Percent Auto 1.6 % (0-4); Hematocrit 29.1 % (42.0-52.0); Hemoglobin 9.7 g/dl (14.0-18.0); Imm Gran Abs Auto 0.04 X10*3/uL (0.00-0.03); Imm Gran Pct Auto 0.4 % (0.0-0.4); Lymphocytes Absolute Auto 2.2 X10*3/uL (1.2-4.9); Lymphocytes Percent Auto 23.3 % (20-40); Mean Corpuscular HGB Conc 33.3 g/dl (31.0-36.0); Mean Corpuscular Hemoglobin 34.4 pg (27.0-33.0); Mean Corpuscular Volume 103.2 fL (80.0-98.0); Mean Platelet Volume 9.1 fL (9.4-12.4); Monocytes Absolute Auto 0.6 X10*3/uL (0.1-1.2); Monocytes Percent Auto 6.6 % (2-11); Neutrophils Absolute Auto 6.4 x10*3/uL (2.0-8.3); Neutrophils Percent Auto 67.7 % (45-73); Platelet Count 186 X10*3/uL (160-400); Red Blood Count 2.82 X10*6/uL (4.60-5.80); Red Cell Distribution Width 16.1 % (11.0-16.0); White Blood Count 9.5 X10*3/uL (4.8-10.8)
[2023-05-09 07:58] LABS: Anion Gap 21 (12-20); Blood Urea Nitrogen 31 mg/dL (9-16); Calcium 9.1 mg/dL (8.4-10.2); Carbon Dioxide 25 mmol/L (22-29); Chloride 96 mmol/L (96-108); Glucose Random 89 mg/dL (60-115); Potassium 4.6 mmol/L (3.3-5.1); Sodium 137 mmol/L (135-145)
[2023-05-09 08:36] LABS: Estimated Glomerular Filt Rate 11
== END 2023-05-09 06:17 | disposition home or self-care (01) ==
LOC: HO.MMNH2L 06:16
PROVIDERS: Visit Provider Family Medicine
DX: N18.6 End stage renal disease (principal)
CPT/HCPCS: 36415; 80048; 85025

== ENCOUNTER 2023-05-16 08:05 | Outpatient (REF) | payer OTHER, SELFPAY ==
[2023-05-16 06:13] LABS: MANUAL DIFF FLAG NO
[2023-05-16 07:36] LABS: Basophils Percent Auto 0.4 % (0-2); Eosinophils Absolute Auto 0.2 X10*3/uL (0.0-0.4); Hematocrit 30.3 % (42.0-52.0); Hemoglobin 9.9 g/dl (14.0-18.0); Imm Gran Abs Auto 0.03 X10*3/uL (0.00-0.03); Imm Gran Pct Auto 0.4 % (0.0-0.4); Lymphocytes Absolute Auto 2.2 X10*3/uL (1.2-4.9); Lymphocytes Percent Auto 27.5 % (20-40); Mean Corpuscular HGB Conc 32.7 g/dl (31.0-36.0); Mean Corpuscular Hemoglobin 33.9 pg (27.0-33.0); Mean Corpuscular Volume 103.8 fL (80.0-98.0); Mean Platelet Volume 9.1 fL (9.4-12.4); Monocytes Absolute Auto 0.7 X10*3/uL (0.1-1.2); Monocytes Percent Auto 8.7 % (2-11); Neutrophils Absolute Auto 4.9 x10*3/uL (2.0-8.3); Platelet Count 158 X10*3/uL (160-400); Red Blood Count 2.92 X10*6/uL (4.60-5.80); Red Cell Distribution Width 16.8 % (11.0-16.0); White Blood Count 7.9 X10*3/uL (4.8-10.8)
[2023-05-16 07:43] LABS: Alanine Aminotransferase 13 U/L (0-40); Albumin Level 3.5 g/dL (3.5-5.0); Alkaline Phosphatase 104 U/L (39-117); Anion Gap 18 (12-20); Aspartate Amino Transferase 17 U/L (5-37); Bilirubin Total 0.5 mg/dL (0.0-1.0); Blood Urea Nitrogen 37 mg/dL (9-16); Calcium 9.3 mg/dL (8.4-10.2); Carbon Dioxide 27 mmol/L (22-29); Chloride 95 mmol/L (96-108); Estimated Glomerular Filt Rate 11; Glucose Random 85 mg/dL (60-115); Potassium 4.4 mmol/L (3.3-5.1); Sodium 136 mmol/L (135-145); Total Protein 7.5 g/dL (6.5-8.0)
== END 2023-05-16 08:06 | disposition home or self-care (01) ==
LOC: HO.MMNH2L 08:05
PROVIDERS: Visit Provider Family Medicine
DX: N18.6 End stage renal disease (principal)
CPT/HCPCS: 36415; 80053; 85025

== ENCOUNTER 2023-05-23 06:34 | Outpatient (REF) | payer OTHER, SELFPAY ==
[2023-05-23 06:12] LABS: MANUAL DIFF FLAG NO
[2023-05-23 07:00] LABS: Basophils Percent Auto 0.3 % (0-2); Eosinophils Absolute Auto 0.2 X10*3/uL (0.0-0.4); Eosinophils Percent Auto 2.2 % (0-4); Hematocrit 29.8 % (42.0-52.0); Hemoglobin 9.9 g/dl (14.0-18.0); Imm Gran Abs Auto 0.02 X10*3/uL (0.00-0.03); Imm Gran Pct Auto 0.3 % (0.0-0.4); Lymphocytes Absolute Auto 2.2 X10*3/uL (1.2-4.9); Lymphocytes Percent Auto 31.2 % (20-40); Mean Corpuscular HGB Conc 33.2 g/dl (31.0-36.0); Mean Corpuscular Hemoglobin 34.1 pg (27.0-33.0); Mean Corpuscular Volume 102.8 fL (80.0-98.0); Mean Platelet Volume 9.7 fL (9.4-12.4); Monocytes Absolute Auto 0.6 X10*3/uL (0.1-1.2); Monocytes Percent Auto 8.2 % (2-11); Neutrophils Percent Auto 57.8 % (45-73); Platelet Count 153 X10*3/uL (160-400); Red Cell Distribution Width 14.9 % (11.0-16.0)
[2023-05-23 07:28] LABS: Anion Gap 17 (12-20); Blood Urea Nitrogen 33 mg/dL (9-16); Calcium 8.9 mg/dL (8.4-10.2); Carbon Dioxide 27 mmol/L (22-29); Chloride 96 mmol/L (96-108); Glucose Random 89 mg/dL (60-115); Potassium 4.5 mmol/L (3.3-5.1); Sodium 135 mmol/L (135-145)
[2023-05-23 07:53] LABS: Estimated Glomerular Filt Rate 9
== END 2023-05-23 06:35 | disposition home or self-care (01) ==
LOC: HO.MMNH2L 06:34
PROVIDERS: Visit Provider Family Medicine
DX: N18.6 End stage renal disease (principal)
CPT/HCPCS: 36415; 80048; 85025

== ENCOUNTER 2023-05-30 06:53 | Outpatient (REF) | payer OTHER, SELFPAY ==
[2023-05-30 06:39] LABS: MANUAL DIFF FLAG NO
[2023-05-30 07:05] LABS: Basophils Percent Auto 0.4 % (0-2); Eosinophils Absolute Auto 0.2 X10*3/uL (0.0-0.4); Eosinophils Percent Auto 2.2 % (0-4); Hemoglobin 10.1 g/dl (14.0-18.0); Imm Gran Abs Auto 0.03 X10*3/uL (0.00-0.03); Imm Gran Pct Auto 0.4 % (0.0-0.4); Lymphocytes Absolute Auto 2.3 X10*3/uL (1.2-4.9); Mean Corpuscular HGB Conc 33.7 g/dl (31.0-36.0); Mean Corpuscular Hemoglobin 34.1 pg (27.0-33.0); Mean Corpuscular Volume 101.4 fL (80.0-98.0); Mean Platelet Volume 9.4 fL (9.4-12.4); Monocytes Absolute Auto 0.7 X10*3/uL (0.1-1.2); Monocytes Percent Auto 9.4 % (2-11); Neutrophils Absolute Auto 4.1 x10*3/uL (2.0-8.3); Neutrophils Percent Auto 56.6 % (45-73); Platelet Count 176 X10*3/uL (160-400); Red Blood Count 2.96 X10*6/uL (4.60-5.80); Red Cell Distribution Width 14.5 % (11.0-16.0); White Blood Count 7.3 X10*3/uL (4.8-10.8)
[2023-05-30 07:42] LABS: Alanine Aminotransferase 14 U/L (0-40); Albumin Level 3.4 g/dL (3.5-5.0); Alkaline Phosphatase 96 U/L (39-117); Anion Gap 16 (12-20); Aspartate Amino Transferase 15 U/L (5-37); Bilirubin Total 0.4 mg/dL (0.0-1.0); Blood Urea Nitrogen 30 mg/dL (9-16); Calcium 9.2 mg/dL (8.4-10.2); Carbon Dioxide 28 mmol/L (22-29); Chloride 95 mmol/L (96-108); Estimated Glomerular Filt Rate 10; Glucose Random 87 mg/dL (60-115); Potassium 4.2 mmol/L (3.3-5.1); Sodium 135 mmol/L (135-145)
== END 2023-05-30 06:54 | disposition home or self-care (01) ==
LOC: HO.MMNH2L 06:53
PROVIDERS: Visit Provider Family Medicine
DX: N18.6 End stage renal disease (principal)
CPT/HCPCS: 36415; 80053; 85025

== ENCOUNTER 2023-06-06 06:35 | Outpatient (REF) | payer OTHER, SELFPAY ==
[2023-06-06 06:16] LABS: MANUAL DIFF FLAG NO
[2023-06-06 07:11] LABS: Basophils Percent Auto 0.4 % (0-2); Eosinophils Absolute Auto 0.2 X10*3/uL (0.0-0.4); Eosinophils Percent Auto 1.9 % (0-4); Hematocrit 32.8 % (42.0-52.0); Hemoglobin 10.8 g/dl (14.0-18.0); Imm Gran Abs Auto 0.01 X10*3/uL (0.00-0.03); Imm Gran Pct Auto 0.1 % (0.0-0.4); Lymphocytes Absolute Auto 2.3 X10*3/uL (1.2-4.9); Lymphocytes Percent Auto 29.8 % (20-40); Mean Corpuscular HGB Conc 32.9 g/dl (31.0-36.0); Mean Corpuscular Volume 103.1 fL (80.0-98.0); Mean Platelet Volume 9.4 fL (9.4-12.4); Monocytes Absolute Auto 0.7 X10*3/uL (0.1-1.2); Monocytes Percent Auto 8.5 % (2-11); Neutrophils Absolute Auto 4.6 x10*3/uL (2.0-8.3); Neutrophils Percent Auto 59.3 % (45-73); Platelet Count 157 X10*3/uL (160-400); Red Blood Count 3.18 X10*6/uL (4.60-5.80); Red Cell Distribution Width 15.3 % (11.0-16.0); White Blood Count 7.7 X10*3/uL (4.8-10.8)
[2023-06-06 07:43] LABS: Anion Gap 20 (12-20); Blood Urea Nitrogen 36 mg/dL (9-16); Calcium 9.1 mg/dL (8.4-10.2); Carbon Dioxide 26 mmol/L (22-29); Chloride 96 mmol/L (96-108); Estimated Glomerular Filt Rate 8; Glucose Random 92 mg/dL (60-115); Potassium 4.5 mmol/L (3.3-5.1); Sodium 137 mmol/L (135-145)
== END 2023-06-06 06:36 | disposition home or self-care (01) ==
LOC: HO.MMNH2L 06:35
PROVIDERS: Visit Provider Family Medicine
DX: N18.6 End stage renal disease (principal)
CPT/HCPCS: 36415; 80048; 85025

== ENCOUNTER 2023-06-13 07:17 | Outpatient (REF) | payer OTHER, SELFPAY ==
[2023-06-13 06:12] LABS: MANUAL DIFF FLAG NO
[2023-06-13 07:10] LABS: Basophils Percent Auto 0.5 % (0-2); Eosinophils Absolute Auto 0.1 X10*3/uL (0.0-0.4); Eosinophils Percent Auto 1.5 % (0-4); Hematocrit 33.3 % (42.0-52.0); Hemoglobin 11.1 g/dl (14.0-18.0); Imm Gran Abs Auto 0.02 X10*3/uL (0.00-0.03); Imm Gran Pct Auto 0.2 % (0.0-0.4); Lymphocytes Absolute Auto 2.3 X10*3/uL (1.2-4.9); Lymphocytes Percent Auto 26.9 % (20-40); Mean Corpuscular HGB Conc 33.3 g/dl (31.0-36.0); Mean Corpuscular Hemoglobin 34.4 pg (27.0-33.0); Mean Corpuscular Volume 103.1 fL (80.0-98.0); Monocytes Absolute Auto 0.6 X10*3/uL (0.1-1.2); Monocytes Percent Auto 6.6 % (2-11); Neutrophils Absolute Auto 5.6 x10*3/uL (2.0-8.3); Neutrophils Percent Auto 64.3 % (45-73); Platelet Count 136 X10*3/uL (160-400); Red Blood Count 3.23 X10*6/uL (4.60-5.80); Red Cell Distribution Width 14.4 % (11.0-16.0); White Blood Count 8.7 X10*3/uL (4.8-10.8)
[2023-06-13 07:45] LABS: Anion Gap 19 (12-20); Blood Urea Nitrogen 28 mg/dL (9-16); Calcium 9.1 mg/dL (8.4-10.2); Carbon Dioxide 26 mmol/L (22-29); Chloride 98 mmol/L (96-108); Glucose Random 70 mg/dL (60-115); Potassium 4.2 mmol/L (3.3-5.1); Sodium 139 mmol/L (135-145)
[2023-06-13 08:17] LABS: Estimated Glomerular Filt Rate 10
== END 2023-06-13 07:18 | disposition home or self-care (01) ==
LOC: HO.MMNH2L 07:17
PROVIDERS: Visit Provider Family Medicine
DX: N18.6 End stage renal disease (principal)
CPT/HCPCS: 36415; 80048; 85025

== ENCOUNTER 2023-06-20 07:15 | Outpatient (REF) | payer OTHER, SELFPAY ==
[2023-06-20 06:02] LABS: MANUAL DIFF FLAG NO
[2023-06-20 06:30] LABS: Basophils Percent Auto 0.4 % (0-2); Eosinophils Absolute Auto 0.2 X10*3/uL (0.0-0.4); Hematocrit 31.8 % (42.0-52.0); Hemoglobin 10.8 g/dl (14.0-18.0); Imm Gran Abs Auto 0.02 X10*3/uL (0.00-0.03); Imm Gran Pct Auto 0.3 % (0.0-0.4); Lymphocytes Absolute Auto 2.1 X10*3/uL (1.2-4.9); Lymphocytes Percent Auto 27.5 % (20-40); Mean Corpuscular Hemoglobin 34.3 pg (27.0-33.0); Mean Platelet Volume 9.6 fL (9.4-12.4); Monocytes Absolute Auto 0.6 X10*3/uL (0.1-1.2); Monocytes Percent Auto 8.3 % (2-11); Neutrophils Absolute Auto 4.7 x10*3/uL (2.0-8.3); Neutrophils Percent Auto 61.5 % (45-73); Platelet Count 143 X10*3/uL (160-400); Red Blood Count 3.15 X10*6/uL (4.60-5.80); Red Cell Distribution Width 13.8 % (11.0-16.0); White Blood Count 7.6 X10*3/uL (4.8-10.8)
[2023-06-20 07:10] LABS: Anion Gap 17 (12-20); Blood Urea Nitrogen 41 mg/dL (9-16); Carbon Dioxide 26 mmol/L (22-29); Chloride 99 mmol/L (96-108); Estimated Glomerular Filt Rate 10; Glucose Random 136 mg/dL (60-115); Potassium 4.2 mmol/L (3.3-5.1); Sodium 138 mmol/L (135-145)
== END 2023-06-20 07:16 | disposition home or self-care (01) ==
LOC: HO.MMNH2L 07:15
PROVIDERS: Visit Provider Family Medicine
DX: N18.6 End stage renal disease (principal)
CPT/HCPCS: 36415; 80048; 85025

== ENCOUNTER 2023-06-27 | Outpatient (REF) | payer OTHER, MEDICAID, SELFPAY ==
[2023-06-27 06:05] LABS: MANUAL DIFF FLAG NO
[2023-06-27 06:45] LABS: Basophils Percent Auto 0.5 % (0-2); Eosinophils Absolute Auto 0.2 X10*3/uL (0.0-0.4); Eosinophils Percent Auto 1.8 % (0-4); Hematocrit 30.8 % (42.0-52.0); Hemoglobin 10.4 g/dl (14.0-18.0); Imm Gran Abs Auto 0.03 X10*3/uL (0.00-0.03); Imm Gran Pct Auto 0.4 % (0.0-0.4); Lymphocytes Percent Auto 24.5 % (20-40); Mean Corpuscular HGB Conc 33.8 g/dl (31.0-36.0); Mean Corpuscular Hemoglobin 34.1 pg (27.0-33.0); Monocytes Absolute Auto 0.6 X10*3/uL (0.1-1.2); Monocytes Percent Auto 7.6 % (2-11); Neutrophils Absolute Auto 5.3 x10*3/uL (2.0-8.3); Neutrophils Percent Auto 65.2 % (45-73); Platelet Count 136 X10*3/uL (160-400); Red Blood Count 3.05 X10*6/uL (4.60-5.80); Red Cell Distribution Width 13.6 % (11.0-16.0); White Blood Count 8.2 X10*3/uL (4.8-10.8)
[2023-06-27 06:56] LABS: Anion Gap 16 (12-20); Blood Urea Nitrogen 41 mg/dL (9-16); Calcium 9.2 mg/dL (8.4-10.2); Carbon Dioxide 27 mmol/L (22-29); Chloride 99 mmol/L (96-108); Estimated Glomerular Filt Rate 11; Glucose Random 83 mg/dL (60-115); Potassium 4.2 mmol/L (3.3-5.1); Sodium 138 mmol/L (135-145)
== END 2023-06-27 00:01 ==
LOC: HO.MMNH2L
PROVIDERS: Visit Provider Family Medicine
DX: N18.6 End stage renal disease (principal)
CPT/HCPCS: 36415; 80048; 85025

== ENCOUNTER 2023-07-05 06:32 | Outpatient (REF) | payer OTHER, SELFPAY ==
[2023-07-05 06:18] LABS: MANUAL DIFF FLAG NO
[2023-07-05 06:55] LABS: Basophils Percent Auto 0.5 % (0-2); Eosinophils Absolute Auto 0.2 X10*3/uL (0.0-0.4); Eosinophils Percent Auto 2.1 % (0-4); Hematocrit 29.8 % (42.0-52.0); Hemoglobin 10.1 g/dl (14.0-18.0); Imm Gran Abs Auto 0.03 X10*3/uL (0.00-0.03); Imm Gran Pct Auto 0.4 % (0.0-0.4); Lymphocytes Absolute Auto 2.4 X10*3/uL (1.2-4.9); Lymphocytes Percent Auto 29.4 % (20-40); Mean Corpuscular HGB Conc 33.9 g/dl (31.0-36.0); Mean Corpuscular Hemoglobin 33.6 pg (27.0-33.0); Mean Platelet Volume 9.5 fL (9.4-12.4); Monocytes Absolute Auto 0.6 X10*3/uL (0.1-1.2); Monocytes Percent Auto 7.1 % (2-11); Neutrophils Percent Auto 60.5 % (45-73); Platelet Count 182 X10*3/uL (160-400); Red Blood Count 3.01 X10*6/uL (4.60-5.80); Red Cell Distribution Width 13.5 % (11.0-16.0); White Blood Count 8.3 X10*3/uL (4.8-10.8)
[2023-07-05 07:27] LABS: Alanine Aminotransferase 18 U/L (0-40); Albumin Level 3.5 g/dL (3.5-5.0); Alkaline Phosphatase 100 U/L (39-117); Anion Gap 20 (12-20); Aspartate Amino Transferase 18 U/L (5-37); Bilirubin Total 0.3 mg/dL (0.0-1.0); Blood Urea Nitrogen 55 mg/dL (9-16); Calcium 9.1 mg/dL (8.4-10.2); Carbon Dioxide 24 mmol/L (22-29); Chloride 98 mmol/L (96-108); Estimated Glomerular Filt Rate 8; Glucose Random 76 mg/dL (60-115); Potassium 4.7 mmol/L (3.3-5.1); Sodium 137 mmol/L (135-145); Total Protein 7.1 g/dL (6.5-8.0)
== END 2023-07-05 06:33 | disposition home or self-care (01) ==
LOC: HO.MMNH2L 06:32
PROVIDERS: Visit Provider Family Medicine
DX: N18.6 End stage renal disease (principal)
CPT/HCPCS: 36415; 80053; 85025

== ENCOUNTER 2023-07-12 06:33 | Outpatient (REF) | payer MEDICARE, MEDICAID, SELFPAY ==
[2023-07-12 06:16] LABS: MANUAL DIFF FLAG NO
[2023-07-12 06:32] LABS: Basophils Percent Auto 0.4 % (0-2); Eosinophils Absolute Auto 0.1 X10*3/uL (0.0-0.4); Eosinophils Percent Auto 1.9 % (0-4); Hematocrit 31.4 % (42.0-52.0); Hemoglobin 10.6 g/dl (14.0-18.0); Imm Gran Abs Auto 0.03 X10*3/uL (0.00-0.03); Imm Gran Pct Auto 0.4 % (0.0-0.4); Lymphocytes Absolute Auto 2.3 X10*3/uL (1.2-4.9); Lymphocytes Percent Auto 31.9 % (20-40); Mean Corpuscular HGB Conc 33.8 g/dl (31.0-36.0); Mean Corpuscular Hemoglobin 34.1 pg (27.0-33.0); Mean Platelet Volume 9.7 fL (9.4-12.4); Monocytes Absolute Auto 0.6 X10*3/uL (0.1-1.2); Neutrophils Absolute Auto 4.2 x10*3/uL (2.0-8.3); Neutrophils Percent Auto 57.4 % (45-73); Platelet Count 151 X10*3/uL (160-400); Red Blood Count 3.11 X10*6/uL (4.60-5.80); Red Cell Distribution Width 14.5 % (11.0-16.0); White Blood Count 7.2 X10*3/uL (4.8-10.8)
[2023-07-12 06:58] LABS: Alanine Aminotransferase 16 U/L (0-40); Albumin Level 3.7 g/dL (3.5-5.0); Alkaline Phosphatase 102 U/L (39-117); Anion Gap 20 (12-20); Aspartate Amino Transferase 17 U/L (5-37); Bilirubin Total 0.4 mg/dL (0.0-1.0); Blood Urea Nitrogen 61 mg/dL (9-16); Carbon Dioxide 26 mmol/L (22-29); Chloride 101 mmol/L (96-108); Estimated Glomerular Filt Rate 8; Glucose Random 110 mg/dL (60-115); Potassium 4.7 mmol/L (3.3-5.1); Sodium 142 mmol/L (135-145); Total Protein 7.5 g/dL (6.5-8.0)
== END 2023-07-12 06:34 | disposition home or self-care (01) ==
LOC: HO.MMNH2L 06:33
PROVIDERS: Visit Provider Family Medicine
DX: N18.6 End stage renal disease (principal)
CPT/HCPCS: 36415; 80053; 85025

== ENCOUNTER 2023-07-18 10:21 | Outpatient (REF) | payer MEDICARE, MEDICAID, SELFPAY ==
[2023-07-18 06:23] LABS: MANUAL DIFF FLAG NO
[2023-07-18 06:50] LABS: Basophils Absolute Auto 0.1 X10*3/uL (0.0-0.2); Basophils Percent Auto 0.6 % (0-2); Eosinophils Absolute Auto 0.2 X10*3/uL (0.0-0.4); Eosinophils Percent Auto 1.9 % (0-4); Hemoglobin 10.9 g/dl (14.0-18.0); Imm Gran Abs Auto 0.03 X10*3/uL (0.00-0.03); Imm Gran Pct Auto 0.4 % (0.0-0.4); Lymphocytes Absolute Auto 2.2 X10*3/uL (1.2-4.9); Lymphocytes Percent Auto 25.5 % (20-40); Mean Corpuscular HGB Conc 34.1 g/dl (31.0-36.0); Mean Corpuscular Hemoglobin 34.2 pg (27.0-33.0); Mean Corpuscular Volume 100.3 fL (80.0-98.0); Mean Platelet Volume 9.9 fL (9.4-12.4); Monocytes Absolute Auto 0.7 X10*3/uL (0.1-1.2); Monocytes Percent Auto 7.8 % (2-11); Neutrophils Absolute Auto 5.4 x10*3/uL (2.0-8.3); Neutrophils Percent Auto 63.8 % (45-73); Platelet Count 145 X10*3/uL (160-400); Red Blood Count 3.19 X10*6/uL (4.60-5.80); Red Cell Distribution Width 13.9 % (11.0-16.0); White Blood Count 8.5 X10*3/uL (4.8-10.8)
== END 2023-07-18 10:22 | disposition home or self-care (01) ==
LOC: HO.MMNH2L 10:21
PROVIDERS: Visit Provider Family Medicine
DX: N18.6 End stage renal disease (principal)
CPT/HCPCS: 36415; 80053; 82947; 83036; 85025

== ENCOUNTER 2023-07-25 07:23 | Outpatient (REF) | payer MEDICARE, MEDICAID, SELFPAY ==
[2023-07-25 06:32] LABS: MANUAL DIFF FLAG NO
[2023-07-25 06:47] LABS: Basophils Percent Auto 0.4 % (0-2); Eosinophils Absolute Auto 0.2 X10*3/uL (0.0-0.4); Eosinophils Percent Auto 1.9 % (0-4); Hematocrit 30.4 % (42.0-52.0); Hemoglobin 10.5 g/dl (14.0-18.0); Imm Gran Abs Auto 0.02 X10*3/uL (0.00-0.03); Imm Gran Pct Auto 0.2 % (0.0-0.4); Lymphocytes Absolute Auto 2.8 X10*3/uL (1.2-4.9); Mean Corpuscular HGB Conc 34.5 g/dl (31.0-36.0); Mean Corpuscular Hemoglobin 34.4 pg (27.0-33.0); Mean Corpuscular Volume 99.7 fL (80.0-98.0); Mean Platelet Volume 9.7 fL (9.4-12.4); Monocytes Absolute Auto 0.8 X10*3/uL (0.1-1.2); Monocytes Percent Auto 8.7 % (2-11); Neutrophils Absolute Auto 5.3 x10*3/uL (2.0-8.3); Neutrophils Percent Auto 57.8 % (45-73); Platelet Count 147 X10*3/uL (160-400); Red Blood Count 3.05 X10*6/uL (4.60-5.80); Red Cell Distribution Width 13.5 % (11.0-16.0); White Blood Count 9.1 X10*3/uL (4.8-10.8)
[2023-07-25 07:05] LABS: Alanine Aminotransferase 26 U/L (0-40); Albumin Level 3.8 g/dL (3.5-5.0); Alkaline Phosphatase 99 U/L (39-117); Anion Gap 20 (12-20); Aspartate Amino Transferase 20 U/L (5-37); Bilirubin Total 0.4 mg/dL (0.0-1.0); Blood Urea Nitrogen 48 mg/dL (9-16); Calcium 9.3 mg/dL (8.4-10.2); Carbon Dioxide 26 mmol/L (22-29); Chloride 95 mmol/L (96-108); Estimated Glomerular Filt Rate 9; Glucose Random 128 mg/dL (60-115); Potassium 3.9 mmol/L (3.3-5.1); Sodium 137 mmol/L (135-145); Total Protein 7.6 g/dL (6.5-8.0)
== END 2023-07-25 07:24 | disposition home or self-care (01) ==
LOC: HO.MMNH2L 07:23
PROVIDERS: Visit Provider Family Medicine
DX: N18.6 End stage renal disease (principal)
CPT/HCPCS: 36415; 80053; 85025

== ENCOUNTER 2023-08-01 06:36 | Outpatient (REF) | payer MEDICARE, MEDICAID, SELFPAY ==
[2023-08-01 06:10] LABS: MANUAL DIFF FLAG NO
[2023-08-01 06:51] LABS: Basophils Percent Auto 0.3 % (0-2); Eosinophils Absolute Auto 0.2 X10*3/uL (0.0-0.4); Eosinophils Percent Auto 1.8 % (0-4); Hematocrit 29.4 % (42.0-52.0); Hemoglobin 10.1 g/dl (14.0-18.0); Imm Gran Abs Auto 0.02 X10*3/uL (0.00-0.03); Imm Gran Pct Auto 0.2 % (0.0-0.4); Lymphocytes Absolute Auto 2.4 X10*3/uL (1.2-4.9); Lymphocytes Percent Auto 27.1 % (20-40); Mean Corpuscular HGB Conc 34.4 g/dl (31.0-36.0); Mean Corpuscular Hemoglobin 34.1 pg (27.0-33.0); Mean Corpuscular Volume 99.3 fL (80.0-98.0); Mean Platelet Volume 9.7 fL (9.4-12.4); Monocytes Absolute Auto 0.7 X10*3/uL (0.1-1.2); Monocytes Percent Auto 7.4 % (2-11); Neutrophils Absolute Auto 5.6 x10*3/uL (2.0-8.3); Neutrophils Percent Auto 63.2 % (45-73); Platelet Count 150 X10*3/uL (160-400); Red Blood Count 2.96 X10*6/uL (4.60-5.80); Red Cell Distribution Width 13.4 % (11.0-16.0); White Blood Count 8.9 X10*3/uL (4.8-10.8)
[2023-08-01 07:25] LABS: Anion Gap 20 (12-20); Blood Urea Nitrogen 57 mg/dL (9-16); Calcium 9.5 mg/dL (8.4-10.2); Carbon Dioxide 27 mmol/L (22-29); Chloride 96 mmol/L (96-108); Glucose Random 115 mg/dL (60-115); Potassium 3.8 mmol/L (3.3-5.1); Sodium 139 mmol/L (135-145)
[2023-08-01 08:14] LABS: Estimated Glomerular Filt Rate 8
== END 2023-08-01 06:37 | disposition home or self-care (01) ==
LOC: HO.MMNH2L 06:36
PROVIDERS: Visit Provider Family Medicine
DX: N18.6 End stage renal disease (principal)
CPT/HCPCS: 36415; 80048; 85025

== ENCOUNTER 2023-08-08 06:36 | Outpatient (REF) | payer MEDICARE, MEDICAID, SELFPAY ==
[2023-08-08 06:24] LABS: MANUAL DIFF FLAG NO
[2023-08-08 07:05] LABS: Basophils Percent Auto 0.3 % (0-2); Eosinophils Absolute Auto 0.1 X10*3/uL (0.0-0.4); Eosinophils Percent Auto 1.3 % (0-4); Hematocrit 29.1 % (42.0-52.0); Hemoglobin 9.9 g/dl (14.0-18.0); Imm Gran Abs Auto 0.03 X10*3/uL (0.00-0.03); Imm Gran Pct Auto 0.3 % (0.0-0.4); Lymphocytes Absolute Auto 2.3 X10*3/uL (1.2-4.9); Lymphocytes Percent Auto 22.9 % (20-40); Mean Corpuscular Hemoglobin 33.8 pg (27.0-33.0); Mean Corpuscular Volume 99.3 fL (80.0-98.0); Mean Platelet Volume 9.4 fL (9.4-12.4); Monocytes Absolute Auto 0.9 X10*3/uL (0.1-1.2); Monocytes Percent Auto 8.7 % (2-11); Neutrophils Absolute Auto 6.7 x10*3/uL (2.0-8.3); Neutrophils Percent Auto 66.5 % (45-73); Platelet Count 167 X10*3/uL (160-400); Red Blood Count 2.93 X10*6/uL (4.60-5.80); Red Cell Distribution Width 14.2 % (11.0-16.0); White Blood Count 10.1 X10*3/uL (4.8-10.8)
[2023-08-08 07:31] LABS: Alanine Aminotransferase 18 U/L (0-40); Albumin Level 3.7 g/dL (3.5-5.0); Alkaline Phosphatase 97 U/L (39-117); Anion Gap 21 (12-20); Aspartate Amino Transferase 15 U/L (5-37); Bilirubin Total 0.4 mg/dL (0.0-1.0); Blood Urea Nitrogen 62 mg/dL (9-16); Calcium 9.1 mg/dL (8.4-10.2); Carbon Dioxide 25 mmol/L (22-29); Chloride 97 mmol/L (96-108); Estimated Glomerular Filt Rate 7; Glucose Random 114 mg/dL (60-115); Potassium 4.3 mmol/L (3.3-5.1); Sodium 139 mmol/L (135-145); Total Protein 7.5 g/dL (6.5-8.0)
== END 2023-08-08 06:37 | disposition home or self-care (01) ==
LOC: HO.MMNH2L 06:36
PROVIDERS: Visit Provider Family Medicine
DX: N18.9 Chronic kidney disease, unspecified (principal)
CPT/HCPCS: 36415; 80053; 85025

== ENCOUNTER 2023-08-09 05:39 | Outpatient (REF) | payer MEDICARE, MEDICAID, SELFPAY ==
[2023-08-09 06:27] LABS: Influenza A PCR NEGATIVE (Negative); Influenza B PCR NEGATIVE (Negative); Resp Syncy Virus RNA Qual PCR NEGATIVE (Negative); SARS COV2 PCR INHOUSE NEGATIVE (Negative)
== END 2023-08-09 05:40 | disposition home or self-care (01) ==
LOC: HO.MMNH2L 05:39
PROVIDERS: Visit Provider Family Medicine
DX: E11.22 Type 2 diabetes mellitus with diabetic chronic kidney disease (principal); I12.0 Hypertensive chronic kidney disease with stage 5 chronic kidney disease or end stage renal disease; N18.6 End stage renal disease; Z11.52 Encounter for screening for COVID-19; Z20.828 Contact with and (suspected) exposure to other viral communicable diseases
CPT/HCPCS: 0241U

== ENCOUNTER 2023-08-15 06:33 | Outpatient (REF) | payer MEDICARE, MEDICAID, SELFPAY ==
[2023-08-15 06:07] LABS: MANUAL DIFF FLAG NO
[2023-08-15 06:47] LABS: Basophils Percent Auto 0.3 % (0-2); Eosinophils Absolute Auto 0.2 X10*3/uL (0.0-0.4); Eosinophils Percent Auto 2.3 % (0-4); Hematocrit 28.8 % (42.0-52.0); Hemoglobin 9.9 g/dl (14.0-18.0); Imm Gran Abs Auto 0.04 X10*3/uL (0.00-0.03); Imm Gran Pct Auto 0.4 % (0.0-0.4); Lymphocytes Absolute Auto 2.3 X10*3/uL (1.2-4.9); Lymphocytes Percent Auto 25.2 % (20-40); Mean Corpuscular HGB Conc 34.4 g/dl (31.0-36.0); Mean Platelet Volume 9.2 fL (9.4-12.4); Monocytes Absolute Auto 0.6 X10*3/uL (0.1-1.2); Monocytes Percent Auto 6.7 % (2-11); Neutrophils Percent Auto 65.1 % (45-73); Platelet Count 197 X10*3/uL (160-400); Red Blood Count 2.91 X10*6/uL (4.60-5.80); Red Cell Distribution Width 13.5 % (11.0-16.0); White Blood Count 9.3 X10*3/uL (4.8-10.8)
[2023-08-15 06:57] LABS: Alanine Aminotransferase 11 U/L (0-40); Albumin Level 3.5 g/dL (3.5-5.0); Alkaline Phosphatase 84 U/L (39-117); Anion Gap 23 (12-20); Aspartate Amino Transferase 12 U/L (5-37); Bilirubin Total 0.4 mg/dL (0.0-1.0); Blood Urea Nitrogen 64 mg/dL (9-16); Calcium 9.4 mg/dL (8.4-10.2); Carbon Dioxide 22 mmol/L (22-29); Chloride 96 mmol/L (96-108); Estimated Glomerular Filt Rate 7; Glucose Random 120 mg/dL (60-115); Potassium 4.3 mmol/L (3.3-5.1); Sodium 137 mmol/L (135-145); Total Protein 7.5 g/dL (6.5-8.0)
== END 2023-08-15 06:34 | disposition home or self-care (01) ==
LOC: HO.MMNH2L 06:33
PROVIDERS: Visit Provider Family Medicine
DX: N18.6 End stage renal disease (principal)
CPT/HCPCS: 36415; 80053; 85025

== ENCOUNTER 2023-08-22 06:52 | Outpatient (REF) | payer MEDICARE, MEDICAID, SELFPAY ==
[2023-08-22 06:10] LABS: MANUAL DIFF FLAG NO
[2023-08-22 07:07] LABS: Alanine Aminotransferase 18 U/L (0-40); Albumin Level 3.5 g/dL (3.5-5.0); Alkaline Phosphatase 87 U/L (39-117); Anion Gap 20 (12-20); Aspartate Amino Transferase 16 U/L (5-37); Bilirubin Total 0.4 mg/dL (0.0-1.0); Blood Urea Nitrogen 62 mg/dL (9-16); Calcium 8.8 mg/dL (8.4-10.2); Carbon Dioxide 26 mmol/L (22-29); Chloride 99 mmol/L (96-108); Glucose Random 151 mg/dL (60-115); Potassium 4.8 mmol/L (3.3-5.1); Sodium 140 mmol/L (135-145); Total Protein 7.2 g/dL (6.5-8.0)
[2023-08-22 07:15] LABS: Basophils Percent Auto 0.3 % (0-2); Eosinophils Absolute Auto 0.2 X10*3/uL (0.0-0.4); Eosinophils Percent Auto 1.7 % (0-4); Hematocrit 28.5 % (42.0-52.0); Hemoglobin 9.7 g/dl (14.0-18.0); Imm Gran Abs Auto 0.04 X10*3/uL (0.00-0.03); Imm Gran Pct Auto 0.4 % (0.0-0.4); Lymphocytes Absolute Auto 2.3 X10*3/uL (1.2-4.9); Lymphocytes Percent Auto 21.8 % (20-40); Mean Corpuscular Hemoglobin 33.8 pg (27.0-33.0); Mean Corpuscular Volume 99.3 fL (80.0-98.0); Mean Platelet Volume 9.3 fL (9.4-12.4); Monocytes Absolute Auto 0.7 X10*3/uL (0.1-1.2); Monocytes Percent Auto 6.6 % (2-11); Neutrophils Absolute Auto 7.1 x10*3/uL (2.0-8.3); Neutrophils Percent Auto 69.2 % (45-73); Platelet Count 223 X10*3/uL (160-400); Red Blood Count 2.87 X10*6/uL (4.60-5.80); Red Cell Distribution Width 13.4 % (11.0-16.0); White Blood Count 10.3 X10*3/uL (4.8-10.8)
[2023-08-22 08:14] LABS: Estimated Glomerular Filt Rate 8
== END 2023-08-22 06:53 | disposition home or self-care (01) ==
LOC: HO.MMNH2L 06:52
PROVIDERS: Visit Provider Family Medicine
DX: N18.6 End stage renal disease (principal)
CPT/HCPCS: 36415; 80053; 85025

== ENCOUNTER 2023-08-29 05:54 | Outpatient (REF) | payer MEDICARE, MEDICAID, SELFPAY ==
[2023-08-29 05:47] LABS: MANUAL DIFF FLAG NO
[2023-08-29 06:44] LABS: Basophils Percent Auto 0.4 % (0-2); Eosinophils Absolute Auto 0.3 X10*3/uL (0.0-0.4); Hematocrit 29.7 % (42.0-52.0); Imm Gran Abs Auto 0.04 X10*3/uL (0.00-0.03); Imm Gran Pct Auto 0.4 % (0.0-0.4); Lymphocytes Absolute Auto 2.5 X10*3/uL (1.2-4.9); Lymphocytes Percent Auto 28.2 % (20-40); Mean Corpuscular HGB Conc 33.7 g/dl (31.0-36.0); Mean Corpuscular Hemoglobin 33.8 pg (27.0-33.0); Mean Corpuscular Volume 100.3 fL (80.0-98.0); Mean Platelet Volume 9.3 fL (9.4-12.4); Monocytes Absolute Auto 0.7 X10*3/uL (0.1-1.2); Monocytes Percent Auto 7.7 % (2-11); Neutrophils Absolute Auto 5.4 x10*3/uL (2.0-8.3); Neutrophils Percent Auto 60.3 % (45-73); Platelet Count 206 X10*3/uL (160-400); Red Blood Count 2.96 X10*6/uL (4.60-5.80); Red Cell Distribution Width 14.6 % (11.0-16.0)
[2023-08-29 07:12] LABS: Alanine Aminotransferase 17 U/L (0-40); Albumin Level 3.6 g/dL (3.5-5.0); Alkaline Phosphatase 97 U/L (39-117); Anion Gap 20 (12-20); Aspartate Amino Transferase 16 U/L (5-37); Bilirubin Total 0.6 mg/dL (0.0-1.0); Blood Urea Nitrogen 49 mg/dL (9-16); Calcium 9.2 mg/dL (8.4-10.2); Carbon Dioxide 26 mmol/L (22-29); Chloride 96 mmol/L (96-108); Estimated Glomerular Filt Rate 8; Glucose Random 97 mg/dL (60-115); Potassium 4.5 mmol/L (3.3-5.1); Sodium 137 mmol/L (135-145); Total Protein 7.4 g/dL (6.5-8.0)
== END 2023-08-29 05:55 | disposition home or self-care (01) ==
LOC: HO.MMNH2L 05:54
PROVIDERS: Visit Provider Family Medicine
DX: N18.6 End stage renal disease (principal)
CPT/HCPCS: 36415; 80053; 85025

== ENCOUNTER 2023-09-05 06:05 | Outpatient (REF) | payer MEDICARE, MEDICAID, SELFPAY ==
[2023-09-05 05:53] LABS: MANUAL DIFF FLAG NO
[2023-09-05 06:48] LABS: Basophils Percent Auto 0.4 % (0-2); Eosinophils Absolute Auto 0.2 X10*3/uL (0.0-0.4); Eosinophils Percent Auto 2.1 % (0-4); Hematocrit 31.1 % (42.0-52.0); Hemoglobin 10.8 g/dl (14.0-18.0); Imm Gran Abs Auto 0.03 X10*3/uL (0.00-0.03); Imm Gran Pct Auto 0.3 % (0.0-0.4); Lymphocytes Absolute Auto 2.7 X10*3/uL (1.2-4.9); Lymphocytes Percent Auto 26.6 % (20-40); Mean Corpuscular HGB Conc 34.7 g/dl (31.0-36.0); Mean Corpuscular Hemoglobin 34.6 pg (27.0-33.0); Mean Corpuscular Volume 99.7 fL (80.0-98.0); Mean Platelet Volume 9.4 fL (9.4-12.4); Monocytes Absolute Auto 0.9 X10*3/uL (0.1-1.2); Neutrophils Absolute Auto 6.3 x10*3/uL (2.0-8.3); Neutrophils Percent Auto 61.6 % (45-73); Platelet Count 198 X10*3/uL (160-400); Red Blood Count 3.12 X10*6/uL (4.60-5.80); Red Cell Distribution Width 14.7 % (11.0-16.0); White Blood Count 10.2 X10*3/uL (4.8-10.8)
[2023-09-05 07:23] LABS: Alanine Aminotransferase 13 U/L (0-40); Albumin Level 3.8 g/dL (3.5-5.0); Alkaline Phosphatase 96 U/L (39-117); Anion Gap 20 (12-20); Aspartate Amino Transferase 14 U/L (5-37); Blood Urea Nitrogen 42 mg/dL (9-16); Calcium 9.4 mg/dL (8.4-10.2); Carbon Dioxide 25 mmol/L (22-29); Chloride 93 mmol/L (96-108); Glucose Random 101 mg/dL (60-115); Potassium 4.2 mmol/L (3.3-5.1); Sodium 134 mmol/L (135-145); Total Protein 7.9 g/dL (6.5-8.0)
[2023-09-05 07:33] LABS: Estimated Glomerular Filt Rate 8
[2023-09-05 07:44] LABS: Bilirubin Total 0.6 mg/dL (0.0-1.0)
== END 2023-09-05 06:06 | disposition home or self-care (01) ==
LOC: HO.MMNH2L 06:05
PROVIDERS: Visit Provider Family Medicine
DX: N18.6 End stage renal disease (principal)
CPT/HCPCS: 36415; 80053; 85025

== ENCOUNTER 2023-09-12 06:04 | Outpatient (REF) | payer MEDICARE, MEDICAID, SELFPAY ==
[2023-09-12 05:59] LABS: Basophils Percent Auto 0.4 % (0-2); Eosinophils Absolute Auto 0.2 X10*3/uL (0.0-0.4); Eosinophils Percent Auto 1.9 % (0-4); Hemoglobin 9.5 g/dl (14.0-18.0); Imm Gran Abs Auto 0.03 X10*3/uL (0.00-0.03); Imm Gran Pct Auto 0.4 % (0.0-0.4); Lymphocytes Percent Auto 25.3 % (20-40); MANUAL DIFF FLAG NO; Mean Corpuscular HGB Conc 33.9 g/dl (31.0-36.0); Mean Corpuscular Hemoglobin 34.5 pg (27.0-33.0); Mean Corpuscular Volume 101.8 fL (80.0-98.0); Mean Platelet Volume 8.9 fL (9.4-12.4); Monocytes Absolute Auto 0.8 X10*3/uL (0.1-1.2); Monocytes Percent Auto 10.5 % (2-11); Neutrophils Absolute Auto 4.8 x10*3/uL (2.0-8.3); Neutrophils Percent Auto 61.5 % (45-73); Platelet Count 170 X10*3/uL (160-400); Red Blood Count 2.75 X10*6/uL (4.60-5.80); Red Cell Distribution Width 15.7 % (11.0-16.0); White Blood Count 7.8 X10*3/uL (4.8-10.8)
[2023-09-12 07:10] LABS: Anion Gap 18 (12-20); Blood Urea Nitrogen 43 mg/dL (9-16); Calcium 8.8 mg/dL (8.4-10.2); Carbon Dioxide 26 mmol/L (22-29); Chloride 94 mmol/L (96-108); Estimated Glomerular Filt Rate 8; Glucose Random 146 mg/dL (60-115); Potassium 4.3 mmol/L (3.3-5.1); Sodium 134 mmol/L (135-145)
== END 2023-09-12 06:05 | disposition home or self-care (01) ==
LOC: HO.MMNH2L 06:04
PROVIDERS: Visit Provider Family Medicine
DX: N18.6 End stage renal disease (principal)
CPT/HCPCS: 36415; 80048; 85025

== ENCOUNTER 2023-09-19 06:38 | Outpatient (REF) | payer MEDICARE, MEDICAID, SELFPAY ==
[2023-09-19 06:01] LABS: MANUAL DIFF FLAG NO
[2023-09-19 06:50] LABS: Basophils Absolute Auto 0.1 X10*3/uL (0.0-0.2); Basophils Percent Auto 0.7 % (0-2); Eosinophils Absolute Auto 0.2 X10*3/uL (0.0-0.4); Eosinophils Percent Auto 2.1 % (0-4); Hematocrit 31.8 % (42.0-52.0); Hemoglobin 10.5 g/dl (14.0-18.0); Imm Gran Abs Auto 0.06 X10*3/uL (0.00-0.03); Imm Gran Pct Auto 0.6 % (0.0-0.4); Lymphocytes Absolute Auto 2.5 X10*3/uL (1.2-4.9); Lymphocytes Percent Auto 23.2 % (20-40); Mean Corpuscular Hemoglobin 34.5 pg (27.0-33.0); Mean Corpuscular Volume 104.6 fL (80.0-98.0); Mean Platelet Volume 9.4 fL (9.4-12.4); Monocytes Absolute Auto 0.9 X10*3/uL (0.1-1.2); Monocytes Percent Auto 8.3 % (2-11); Neutrophils Percent Auto 65.1 % (45-73); Platelet Count 207 X10*3/uL (160-400); Red Blood Count 3.04 X10*6/uL (4.60-5.80); White Blood Count 10.8 X10*3/uL (4.8-10.8)
[2023-09-19 06:57] LABS: Anion Gap 23 (12-20); Blood Urea Nitrogen 63 mg/dL (9-16); Calcium 9.3 mg/dL (8.4-10.2); Carbon Dioxide 20 mmol/L (22-29); Chloride 101 mmol/L (96-108); Estimated Glomerular Filt Rate 6; Glucose Random 100 mg/dL (60-115); Potassium 5.3 mmol/L (3.3-5.1); Sodium 139 mmol/L (135-145)
== END 2023-09-19 06:39 | disposition home or self-care (01) ==
LOC: HO.MMNH2L 06:38
PROVIDERS: Visit Provider Family Medicine
DX: N18.6 End stage renal disease (principal)
CPT/HCPCS: 36415; 80048; 85025

== ENCOUNTER 2023-09-26 07:17 | Outpatient (REF) | payer MEDICARE, MEDICAID, SELFPAY ==
[2023-09-26 06:35] LABS: MANUAL DIFF FLAG NO
[2023-09-26 07:09] LABS: Basophils Percent Auto 0.3 % (0-2); Eosinophils Absolute Auto 0.2 X10*3/uL (0.0-0.4); Eosinophils Percent Auto 1.7 % (0-4); Hematocrit 29.3 % (42.0-52.0); Hemoglobin 9.9 g/dl (14.0-18.0); Imm Gran Abs Auto 0.03 X10*3/uL (0.00-0.03); Imm Gran Pct Auto 0.3 % (0.0-0.4); Lymphocytes Percent Auto 22.8 % (20-40); Mean Corpuscular HGB Conc 33.8 g/dl (31.0-36.0); Mean Corpuscular Hemoglobin 34.6 pg (27.0-33.0); Mean Corpuscular Volume 102.4 fL (80.0-98.0); Monocytes Absolute Auto 0.8 X10*3/uL (0.1-1.2); Monocytes Percent Auto 8.5 % (2-11); Neutrophils Absolute Auto 5.8 x10*3/uL (2.0-8.3); Neutrophils Percent Auto 66.4 % (45-73); Platelet Count 212 X10*3/uL (160-400); Red Blood Count 2.86 X10*6/uL (4.60-5.80); Red Cell Distribution Width 15.3 % (11.0-16.0); White Blood Count 8.8 X10*3/uL (4.8-10.8)
[2023-09-26 07:37] LABS: Anion Gap 21 (12-20); Blood Urea Nitrogen 44 mg/dL (9-16); Calcium 8.8 mg/dL (8.4-10.2); Carbon Dioxide 25 mmol/L (22-29); Chloride 95 mmol/L (96-108); Glucose Random 117 mg/dL (60-115); Potassium 4.8 mmol/L (3.3-5.1); Sodium 136 mmol/L (135-145)
[2023-09-26 08:24] LABS: Estimated Glomerular Filt Rate 8
== END 2023-09-26 07:18 | disposition home or self-care (01) ==
LOC: HO.MMNH2L 07:17
PROVIDERS: Visit Provider Family Medicine
DX: N18.6 End stage renal disease (principal)
CPT/HCPCS: 36415; 80048; 85025

== ENCOUNTER 2023-10-03 06:10 | Outpatient (REF) | payer MEDICARE, MEDICAID, SELFPAY ==
[2023-10-03 06:03] LABS: MANUAL DIFF FLAG NO
[2023-10-03 07:12] LABS: Basophils Percent Auto 0.2 % (0-2); Eosinophils Absolute Auto 0.1 X10*3/uL (0.0-0.4); Eosinophils Percent Auto 0.4 % (0-4); Hematocrit 34.2 % (42.0-52.0); Hemoglobin 11.2 g/dl (14.0-18.0); Imm Gran Abs Auto 0.05 X10*3/uL (0.00-0.03); Imm Gran Pct Auto 0.4 % (0.0-0.4); Lymphocytes Absolute Auto 0.8 X10*3/uL (1.2-4.9); Lymphocytes Percent Auto 6.9 % (20-40); Mean Corpuscular HGB Conc 32.7 g/dl (31.0-36.0); Mean Corpuscular Hemoglobin 33.9 pg (27.0-33.0); Mean Corpuscular Volume 103.6 fL (80.0-98.0); Mean Platelet Volume 8.9 fL (9.4-12.4); Monocytes Absolute Auto 0.6 X10*3/uL (0.1-1.2); Neutrophils Absolute Auto 9.8 x10*3/uL (2.0-8.3); Neutrophils Percent Auto 87.1 % (45-73); Platelet Count 316 X10*3/uL (160-400); Red Cell Distribution Width 15.3 % (11.0-16.0); White Blood Count 11.2 X10*3/uL (4.8-10.8)
[2023-10-03 08:02] LABS: Anion Gap 23 (12-20); Blood Urea Nitrogen 36 mg/dL (9-16); Calcium 9.4 mg/dL (8.4-10.2); Carbon Dioxide 24 mmol/L (22-29); Chloride 95 mmol/L (96-108); Glucose Random 106 mg/dL (60-115); Potassium 4.9 mmol/L (3.3-5.1); Sodium 137 mmol/L (135-145)
[2023-10-03 08:26] LABS: Estimated Glomerular Filt Rate 9
== END 2023-10-03 06:11 | disposition home or self-care (01) ==
LOC: HO.MMNH2L 06:10
PROVIDERS: Visit Provider Family Medicine
DX: N18.6 End stage renal disease (principal)
CPT/HCPCS: 36415; 80048; 85025

== ENCOUNTER 2023-10-20 15:30 | Outpatient (REF) | payer MEDICARE, MEDICAID, SELFPAY ==
[2023-10-20 19:36] LABS: CDiff Gene PCR POSITIVE (Negative)
[2023-10-20 20:24] LABS: CDIFF Internal ctrl Dots and bkg OK (V)
[2023-10-20 20:35] LABS: CDiff Toxin Positive (Negative)
== END 2023-10-20 15:31 | disposition home or self-care (01) ==
LOC: HO.MMNH3L 15:30
PROVIDERS: Visit Provider Family Medicine
DX: N18.6 End stage renal disease (principal)
CPT/HCPCS: 87324; 87493

== ENCOUNTER 2023-11-23 12:18 | Outpatient (REF) | payer MEDICARE, MEDICAID, SELFPAY ==
[2023-11-23 13:06] LABS: Influenza A PCR NEGATIVE (Negative); Influenza B PCR NEGATIVE (Negative); Resp Syncy Virus RNA Qual PCR NEGATIVE (Negative); SARS COV2 PCR INHOUSE NEGATIVE (Negative)
== END 2023-11-23 12:19 | disposition home or self-care (01) ==
LOC: HO.MMNH3L 12:18
PROVIDERS: Visit Provider Family Medicine
DX: N18.6 End stage renal disease (principal)
CPT/HCPCS: 0241U

== ENCOUNTER 2024-01-07 11:00 | Outpatient (REF) | payer MEDICARE, MEDICAID, SELFPAY ==
[2024-01-08 12:50] LABS: CDiff Gene PCR POSITIVE (Negative)
[2024-01-08 13:05] LABS: CDiff Toxin Positive (Negative)
[2024-01-08 13:06] LABS: CDIFF Internal ctrl Dots and bkg OK (V)
== END 2024-01-07 11:01 | disposition home or self-care (01) ==
LOC: HO.MMNH3L 11:00
PROVIDERS: Visit Provider Family Medicine
DX: N18.6 End stage renal disease (principal)
CPT/HCPCS: 87324; 87493

== ENCOUNTER 2024-02-07 05:39 | Outpatient (REF) | payer MEDICARE, MEDICAID, SELFPAY ==
[2024-02-07 05:42] LABS: MANUAL DIFF FLAG NO
[2024-02-07 05:57] LABS: Basophils Percent Auto 0.2 % (0-2); Hematocrit 34.1 % (42.0-52.0); Hemoglobin 10.9 g/dl (14.0-18.0); Imm Gran Abs Auto 0.06 X10*3/uL (0.00-0.03); Imm Gran Pct Auto 0.6 % (0.0-0.4); Lymphocytes Absolute Auto 1.2 X10*3/uL (1.2-4.9); Lymphocytes Percent Auto 11.6 % (20-40); Mean Corpuscular Hemoglobin 34.1 pg (27.0-33.0); Mean Corpuscular Volume 106.6 fL (80.0-98.0); Mean Platelet Volume 9.7 fL (9.4-12.4); Monocytes Absolute Auto 0.3 X10*3/uL (0.1-1.2); Monocytes Percent Auto 3.2 % (2-11); NRBC Pct Auto 0.2 /100WBC (0.0-0.2); Neutrophils Absolute Auto 8.9 x10*3/uL (2.0-8.3); Neutrophils Percent Auto 84.4 % (45-73); Platelet Count 142 X10*3/uL (160-400); Red Cell Distribution Width 20.4 % (11.0-16.0); White Blood Count 10.6 X10*3/uL (4.8-10.8)
[2024-02-07 06:09] LABS: Anion Gap 23 (12-20); Blood Urea Nitrogen 43 mg/dL (9-16); Calcium 9.3 mg/dL (8.4-10.2); Carbon Dioxide 23 mmol/L (22-29); Chloride 89 mmol/L (96-108); Estimated Glomerular Filt Rate 8; Glucose Random 105 mg/dL (60-115); Potassium 5.8 mmol/L (3.3-5.1); Sodium 129 mmol/L (135-145)
== END 2024-02-07 05:40 | disposition home or self-care (01) ==
LOC: HO.MMNH3L 05:39
PROVIDERS: Visit Provider Family Medicine
DX: I12.0 Hypertensive chronic kidney disease with stage 5 chronic kidney disease or end stage renal disease (principal); N18.6 End stage renal disease
CPT/HCPCS: 36415; 80048; 85025

== ENCOUNTER 2024-02-08 06:09 | Outpatient (REF) | payer MEDICARE, MEDICAID, SELFPAY ==
[2024-02-08 07:28] LABS: Anion Gap 20 (12-20); Blood Urea Nitrogen 24 mg/dL (9-16); Calcium 8.9 mg/dL (8.4-10.2); Carbon Dioxide 28 mmol/L (22-29); Chloride 92 mmol/L (96-108); Estimated Glomerular Filt Rate 13; Glucose Random 67 mg/dL (60-115); Potassium 4.6 mmol/L (3.3-5.1); Sodium 135 mmol/L (135-145)
== END 2024-02-08 06:10 | disposition home or self-care (01) ==
LOC: HO.MMNH3L 06:09
PROVIDERS: Visit Provider Family Medicine
DX: I12.0 Hypertensive chronic kidney disease with stage 5 chronic kidney disease or end stage renal disease (principal); N18.6 End stage renal disease; E87.1 Hypo-osmolality and hyponatremia
CPT/HCPCS: 36415; 80048

== ENCOUNTER 2024-03-14 08:19 | Inpatient (IN) | payer MEDICARE, MEDICAID, SELFPAY ==
[2024-03-14] VITALS (54 sets, daily range): BP systolic 73–169; BP diastolic 38–92; PULSE 51–83; RESP 12–24; TEMP 32.1–36.8; O2SAT 73–100; BMI 32.1
--- NOTE | 2024-03-14 | ECG_ITS ---
Test Reason : ICU EVAL Blood Pressure : / mmHG Vent. Rate : 070 BPM Atrial Rate : 070 BPM P-R Int : 220 ms QRS Dur : 154 ms QT Int : 500 ms P-R-T Axes : 077 -46 123 degrees QTc Int : 540 ms Sinus rhythm with 1st degree A-V block Left axis deviation Left bundle branch block Prolonged QT Abnormal ECG When compared with ECG of 14-MAR-2024 08:55, No significant change was found Referred By: Park Walter Electronically Signed By:ISAIAH PANDEY
--- NOTE | ~2024-03-14 | XR_ITS ---
EXAMINATION: XR CHEST CLINICAL INFORMATION: Pneumonia COMPARISON: Chest radiograph 03/14/2024 TECHNIQUE: Frontal view of the chest was obtained. FINDINGS: Endotracheal tube is low lying with its tip approximately 1 cm above the elieser. Enteric tube courses subdiaphragmatically with its side-port and tip projecting over the expected location of the stomach. Overlying EKG wires. Bilateral patchy airspace opacities, improving from prior exam. Moderate left pleural effusion slightly improved from prior exam. The cardiomediastinal silhouette is unchanged. No appreciable pneumothorax. XR/XR chest 1V IMPRESSION: 1. Endotracheal tube is low lying with its tip approximately 1 cm above the elieser. Retraction is recommended. 2. Improving bilateral patchy airspace opacities. Moderate left pleural effusion, slightly improved from prior exam. Findings were discussed with Esme Hitchcock MD on 03/16/2024 at 11:53 am Electronically signed by: Peterson Granados MD 03/16/2024 11:53 AM EDT
--- NOTE | ~2024-03-14 | CT_ITS ---
EXAMINATION: CT CHEST WITHOUT CONTRAST CLINICAL INFORMATION: Cough and hypoxia COMPARISON: Chest radiograph same date TECHNIQUE: Multidetector volumetric CT imaging of the chest was done. Axial MIP volume rendering provided. Sagittal and coronal reformatted images were obtained. This CT examination was performed using dose optimization techniques as appropriate, variously including the following: *Automated exposure control *Adjustment of mA and/or kV according to patient size (this includes techniques or standardized protocols for targeted exams where dose is matched to indication/reason for exam; i.e. extremities or head) *Use of iterative reconstruction technique DLP: 339 mGy-cm FINDINGS: WEIGHT AND TEST BAR CLERK: Diffuse parenchymal infiltrates LUNGS: Abnormal. There are extensive airspace consolidations throughout the lungs with dense air bronchograms noted consistent with an extensive multifocal pneumonia. MEDIASTINUM: There is an endotracheal tube seen with its tip above the elieser. There is moderate cardiomegaly. Multiple small confluent mediastinal nodes observed, likely reactive, measuring up to 14 mm. No pericardial effusion. Thoracic inlet unremarkable. CORONARY ARTERY CALCIFICATION: Extensive. PLEURA: Moderate left pleural effusion. Small right pleural effusion. AXILLA: No lymphadenopathy. UPPER ABDOMEN: Gallstones. OSSEOUS STRUCTURES: Spondylitic changes throughout the thoracic spine and lower cervical spine. Mild compression deformity superior endplate L1. CT/CT chest wo IV con IMPRESSION: Extensive multifocal airspace disease likely reflective of pneumonia. Fleischner guidelines were followed. Electronically signed by: Jaime Arciniega MD 03/14/2024 12:18 PM EDT
--- NOTE | ~2024-03-14 | XR_ITS ---
EXAMINATION: XR CHEST CLINICAL INFORMATION: Shortness of breath COMPARISON: Chest radiograph 08/25/2022 TECHNIQUE: Frontal view of the chest was obtained. FINDINGS: Extensive bilateral airspace opacities which have markedly progressed. Moderate left and small right pleural effusion. The cardiac silhouette is obscured by the airspace opacities. XR/XR chest 1V IMPRESSION: 1. Extensive bilateral airspace opacities which have markedly progressed. This could represent multifocal pneumonia or alveolar edema. 2. Moderate left and small right pleural effusions. Electronically signed by: Zay Vang MD 03/14/2024 11:43 AM EDT
--- NOTE | ~2024-03-14 | XR_ITS ---
EXAMINATION: XR CHEST CLINICAL INFORMATION: OG tube placement COMPARISON: Early exam same day TECHNIQUE: Semiupright portable 2:16 PM view of the chest was obtained. FINDINGS: OG tube placed with its tip well below the GE junction in good position. Bilateral extensive alveolar infiltrates appear similar for technical differences. ET tube remains satisfactory. No gross pneumothorax. Likely an element of pleural disease posteriorly loculated left pleural space suspected. XR/XR chest 1V IMPRESSION: OG tube in good position. No other interval change. Electronically signed by: Jackson Sauceda MD 03/14/2024 04:38 PM EDT
--- NOTE | ~2024-03-14 | CT_ITS ---
EXAMINATION: CT HEAD WITHOUT CONTRAST CLINICAL INFORMATION: Changes in mental status. Patient is on blood thinner COMPARISON: Prior CT head dated 08/26/2022 TECHNIQUE: Contiguous axial imaging was performed from the skull base to vertex without intravenous administration of contrast. This CT examination was performed using dose optimization techniques as appropriate, variously including the following: *Automated exposure control *Adjustment of mA and/or kV according to patient size (this includes techniques or standardized protocols for targeted exams where dose is matched to indication/reason for exam; i.e. extremities or head) *Use of iterative reconstruction technique DLP: 690 mGy-cm FINDINGS: There is prominence to the sulci and ventricles. Deep white matter nucleus is noted. Bilateral basal ganglia calcifications noted. No intra or extra-axial fluid collection or hemorrhage, mass, or mass effect. Calvarium intact. There is minor mucoperiosteal thickening within the ethmoid sinus and left sphenoid sinus. The retrobulbar regions are intact. CT/CT head/brain wo IV con IMPRESSION: No acute intracranial pathology. Electronically signed by: Jaime Arciniega MD 03/14/2024 12:26 PM EDT
--- NOTE | 2024-03-14 08:27 | ECG_ITS ---
Test Reason : DYSPNEA Blood Pressure : / mmHG Vent. Rate : 067 BPM Atrial Rate : 067 BPM P-R Int : 224 ms QRS Dur : 156 ms QT Int : 512 ms P-R-T Axes : 053 -44 120 degrees QTc Int : 541 ms Sinus rhythm with 1st degree A-V block Left axis deviation Left bundle branch block Prolonged QT Abnormal ECG When compared with ECG of 25-AUG-2022 18:34, Left bundle branch block is now Present Referred By: Kaitlynn Wilkinson Electronically Signed By:ISAIAH PANDEY
--- NOTE | 2024-03-14 08:31 | ED_ITS ---
HPI - SOB/Dyspnea General Chief Complaint: Dyspnea Stated Complaint: LOW O2 SAT 50'S THEN 70S @SNF,NRB @10LPM 100% Source: EMS and old records reviewed Mode of arrival: EMS Limitations: altered mental status History of Present Illness ED Provider: DARLYN MILLER Narrative: 69 yo male with PMH of ESRD on HD TuThSa, CAD with ischemic cardiomyopathy and CHF EF 28% last ECHO 2022, IDDM, PAF on eliquis, mood disorder who comes from [facility] via EMS they note patient was last seen on round last night this AM on VS checks and they found him with labored breathing and decreased in mentation reportedly SNF found sats in 50s. EMS note when they arrived he was laying flat in resp distress they note as soon as they sit him up his sat was > 90%. He cannot provide a history and just moans but does know his name and that he is at the hospital. MD elicited complaint: shortness of breath and cough Pertinent past history: congestive heart failure and diabetes Onset (ago): unknown Context: other Timing: constant Severity: severe Exacerbating factors: lying flat and coughing Relieving factors: oxygen and upright position Known history of: congestive heart failure and diabetes Associated symptoms: cough and other (weakness, decreased responsiveness) Treatment prior to arrival: oxygen Related Data Home Medications ?Medication ?Instructions ?Recorded ?Confirmed amiodarone 200 mg tablet 1 tab PO DAILY 02/20/22 03/14/24 bumetanide 1 mg tablet 1 tab PO BID 02/20/22 03/14/24 carvedilol 3.125 mg tablet 1 tab PO BID 02/20/22 03/14/24 cholecalciferol (vitamin D3) 50 1 tab PO DAILY 02/20/22 03/14/24 mcg (2,000 unit) tablet insulin glargine 100 unit/mL (3 4 unit subcut BEDTIME 02/20/22 03/14/24 mL) subcutaneous pen (Lantus Solostar U-100 Insulin) fluoxetine 20 mg capsule 1 cap PO BID 05/01/22 03/14/24 acetaminophen 325 mg tablet 650 mg PO BID PRN Back Pain 03/14/24 03/14/24 amino ac-protein hydro-whey 1 ea PO BID 03/14/24 03/14/24 protein 10 gram-100 kcal/30 mL oral liquid (ProSource) aspirin 81 mg chewable tablet 81 mg PO DAILY 03/14/24 03/14/24 atropine sulfate (PF) 1 % eye 1 drp ophthalmic-Left BID 03/14/24 03/14/24 drops in a dropperette brimonidine 0.2 % eye drops 1 drp ophthalmic-Left TID 03/14/24 03/14/24 dorzolamide-timolol (PF) 2 %-0.5 % 1 drp ophthalmic-Left BID 03/14/24 03/14/24 eye drops in a dropperette (Cosopt (PF)) emollient 1 appl topical SUMOWEFR 03/14/24 03/14/24 ergocalciferol (vitamin D2) 1,250 1,250 mcg PO Q30D 03/14/24 03/14/24 mcg (50,000 unit) capsule (Vitamin D2) insulin lispro 100 unit/mL 1 sliding scale dose subcut DAILY 03/14/24 03/14/24 subcutaneous pen (Humalog KwikPen (U-100) Insulin) latanoprost 0.005 % eye drops 1 drp ophthalmic-Left BEDTIME 03/14/24 03/14/24 midodrine 5 mg tablet 5 mg PO TUTHSA 03/14/24 03/14/24 multivitamin 1 tab PO DAILY 03/14/24 03/14/24 ondansetron HCl 4 mg tablet 4 mg PO Q6H PRN Nausea 03/14/24 03/14/24 peg [id number] 1 1 drp ophthalmic-Left BID Dry Eyes 03/14/24 03/14/24 %-0.2 %-0.2 % eye drops (Artificial Tears ([id number])) trazodone 50 mg tablet 25 mg PO BEDTIME 03/14/24 03/14/24 triamcinolone acetonide 0.1 % 1 appl topical BID 03/14/24 03/14/24 topical cream valsartan 40 mg tablet 40 mg PO SUMOWEFR 03/14/24 03/14/24 Previous Rx's ?Medication ?Instructions ?Recorded atorvastatin 80 mg tablet 80 mg PO BEDTIME #90 tabs 04/22/22 apixaban 2.5 mg tablet (Eliquis) 2.5 mg PO BID #60 tabs 09/21/22 Allergies Allergy/AdvReac Type Severity Reaction Status Date / Time No Known Allergies Allergy Verified 03/14/24 08:59 Review of Systems 2 Review of Systems: ROS unable to be obtained due to altered mental status [facility] Past Medical History Attestation statement: The following information was validated with the patient. Source: old records reviewed Medical History ESRD on dialysis Toxic metabolic encephalopathy Bacteremia due to Staphylococcus Gallstones Anemia HFrEF (heart failure with reduced ejection fraction) ESRD (end stage renal disease) Community acquired pneumonia Pneumonia Acute respiratory failure with hypoxia Anemia CKD (chronic kidney disease) ESRD (end stage renal disease) on dialysis Type 2 diabetes mellitus with unspecified complications Essential hypertension Chronic kidney disease, unspecified Chronic heart failure with preserved ejection fraction PAF (paroxysmal atrial fibrillation) Atherosclerotic cardiovascular disease Surgical History History of colon resection History of cardiac catheterization (~07/18/20) Family History Family History Father Esophageal cancer Mother Diabetes Hypertension Social History Social History Household Members: Unknown / Unable to assess Housing: Unknown / Unable to assess Housing Other:: elderly housing Unable to assess alcohol history related to: Unknown Alcohol intake: never Patient Tobacco Use Status: Never used Tobacco Second Hand Smoke Exposure: No Advance Directives Date on File: 09/21/21 service: No Current occupational status: unemployed Physical Exam 2 Vital Signs: Vital Signs: Last Vital Signs Temp 96.8 F 03/14/24 11:31 Pulse 58 03/14/24 15:48 Resp 20 03/14/24 14:56 BP 143/68 H 03/14/24 15:48 Pulse Ox 94 03/14/24 14:56 O2 Del Method Mechanical Ventil ation 03/14/24 14:56 FiO2 60 03/14/24 14:57 Oxygen Flow Rate 10 03/14/24 08:28 BMI result Body Mass Index 32.1 Appearance: Somnolent. Able to say his name, very weak appearing, moderate acute distress. Eyes: Pupils equal, round and reactive to light. ENT: Pharynx dry MM Neck: Normal inspection. Neck supple. CVS: Normal heart rate and rhythm. Pulses normal. Respiratory: Mild respiratory distress labored shallow breaths. Breath sounds very coarse, diminished and fine crackles in both bases Abdomen: Soft and nontender. Skin: Skin warm and dry. pale skin color. Normal skin turgor. Extremities: No lower extremity edema. No calf ttp Neuro: alert to self and place. No motor deficit. No sensory deficit. Course Course Course Narrative: failed high flow sats 85%, attempted bipap in mid 70s failed intubated given CXR spoke to HCP who agrees full code Reevaluation(s) Reevaluation #1: Dr. Walter and notified still pending recc from nephrology family aware of plan at bedside planned admit Reevaluation #2: able to maintain sat on 100% Reevaluation #3: BS was low initial glucose ordered, not given dextrose that was ordered, repeat check in 20s at this time I have ordered another dextrose bolus and held drip as i didn't realize first bolus was not given and communicated again need to recheck after bolus 1228pm aware 1229pm will see patient in consult Additional Reevaluation(s): BP droppped given gentle bolus and albumin will monitor closely repeat sugar in 300s Medications Administered Generic Name Dose Route Start Last Admin Trade Name Freq PRN Reason Stop Dose Admin Dextrose 250 mls @ 750 mls/hr 03/14/24 10:29 03/14/24 12:51 D10 IV Infused Q15M PRN Infusion per Hypoglycemia Standing Ord. Propofol 1,000 mg in 100 mls @ 0 mls/hr 03/14/24 12:00 03/14/24 14:40 Diprivan IVCONT 10 mcg/kg/min .Q0M TRINH 4.62 mls/hr Titration Protocol Per Protocol Piperacillin Sod/Tazobactam 100 mls @ 200 mls/hr 03/14/24 13:00 03/14/24 14:37 Sod 4.5 gm/ Sodium Chloride IV Infused Q12H TRINH Infusion Norepinephrine Bitartrate 8 mg in 250 mls @ 0 mls/hr 03/14/24 13:15 03/14/24 15:48 Levophed IVCONT 0.9 mcg/kg/min .Q0M TRINH 129.94 mls/hr Titration Protocol Per Protocol Discontinued Medications Generic Name Dose Route Start Last Admin Trade Name Jenni PRN Reason Stop Dose Admin Bumetanide 1 mg 03/14/24 12:04 03/14/24 14:14 Bumetanide 1 Mg/4 Ml Vial IVPUSH 03/14/24 12:05 1 mg ONCE ONE Administration Protocol Dextrose 50 gm 03/14/24 12:01 03/14/24 14:02 Dextrose 25 % 2.5 Gm/10 Ml Syringe IVPUSH 03/14/24 12:02 Not Given ONCE ONE Dextrose 50 gm 03/14/24 12:30 03/14/24 12:35 Dextrose 50 % 25 Gm/50 Ml Syringe IVPUSH 03/14/24 12:31 50 gm ONCE ONE Administration Furosemide 80 mg 03/14/24 09:41 03/14/24 10:29 Furosemide 100 Mg/10 Ml Vial IVPUSH 03/14/24 09:42 80 mg ONCE ONE Administration Protocol Cefepime HCl 1 gm/ Sodium 50 mls @ 100 mls/hr 03/14/24 08:31 03/14/24 10:08 Chloride IV 03/14/24 09:00 Infused ONCE ONE Infusion Fentanyl 1,000 mcg in 100 mls @ 0 mls/hr 03/14/24 10:00 03/14/24 14:06 Sublimaze/Ns IVCONT Infused .Q0M TRINH Titration Protocol Per Protocol Midazolam HCl 50 mg in 50 mls @ 2 mls/hr 03/14/24 10:00 03/14/24 14:07 Versed IVCONT Infused .Q24H TRINH Infusion 2 MG/HR Vancomycin HCl 2,000 mg in 500 mls @ 250 mls/hr 03/14/24 11:50 03/14/24 13:42 Vancomycin/Ns IV 03/14/24 13:49 250 mls/hr ONCE ONE Administration Dextrose 1,000 mls @ 50 mls/hr 03/14/24 12:30 03/14/24 13:53 D10 IVCONT Not Given .Q20H TRINH Sodium Chloride 500 mls @ 500 mls/hr 03/14/24 12:44 03/14/24 14:15 Ns IV 03/14/24 13:43 Infused .Q1H ONE Infusion Albumin Human 100 mls @ 133.333 mls/hr 03/14/24 12:45 03/14/24 14:38 Kedbumin 25 % IV 03/14/24 14:29 133.33 mls/hr Q1H TRINH Administration Ketamine HCl 50 mg 03/14/24 10:00 03/14/24 09:48 Ketamine Hcl/Ns 50 Mg/5 Ml Syringe IVPUSH 03/14/24 10:01 50 mg ONCE ONE Administration Rocuronium Horton 50 mg 03/14/24 10:00 03/14/24 09:48 Rocuronium Horton 50 Mg/5 Ml Vial IVPUSH 03/14/24 10:01 50 mg ONCE ONE Administration Medical Decision Making Medical Decision Making MDM Narrative: 69 yo male with PMH of ESRD on HD TuThSa, CAD with ischemic cardiomyopathy and CHF EF 28% last ECHO 2022, IDDM, PAF on eliquis, mood disorder here with c/o hypoxia, resp distress, weakness last known well last night - at this time will need labs, cultures, lactic acid, viral panel - start on empiric cefepime - at this time will place on high flow given hypoxia. He is at SNF so he unlikely has skipped HD and has no peripheral edema or JVD on exam. If lytes or exam concerning for volume overload/hyperkalemia/uremia will discuss case with nephrology. Differential Diagnosis Differential Diagnoses: The differential diagnosis associated with the presentation includes CHF, viral syndrome, pneumonia Admission/Observation Consideration of admission/observation: Escalation of care including admission/observation considered admit given resp failure Consult Healthcare Provider Management of the patient was discussed with: Transportation Supervisor Dr. Lai message sent to Dr. Knapp at 11am pending [facility] Lab Data [facility] Lab Attestation statement: I reviewed the patient's lab results. 03/14/24 12:37 03/14/24 12:37 Labs: Lab Results 03/14/24 03/14/24 03/14/24 Range/Units 08:51 09:00 09:59 WBC 13.2 H (4.8-10.8) X10*3/uL RBC 3.42 L (4.60-5.80) X10*6/uL Hgb 11.3 L (14.0-18.0) g/dl Hct 35.0 L (42.0-52.0) % MCV 102.3 H (80.0-98.0) fL MCH 33.0 (27.0-33.0) pg MCHC 32.3 (31.0-36.0) g/dl RDW 18.2 H (11.0-16.0) % Plt Count 130 L (160-400) X10*3/uL MPV 9.2 L (9.4-12.4) fL Immature Gran % (Auto) 0.5 H (0.0-0.4) % Neut % (Auto) 91.2 H (45-73) % Lymph % (Auto) 4.2 L (20-40) % Otero % (Auto) 3.7 (2-11) % Eos % (Auto) 0.2 (0-4) % Baso % (Auto) 0.2 (0-2) % Lymph # (Auto) 0.6 L (1.2-4.9) X10*3/uL [place]tero # (Auto) 0.5 (0.1-1.2) X10*3/uL Eos # (Auto) 0.0 (0.0-0.4) X10*3/uL Baso # (Auto) 0.0 (0.0-0.2) X10*3/uL Abs Immat Gran (auto) 0.07 H (0.00-0.03) X10*3/uL Absolute Neuts (auto) 12.0 H (2.0-8.3) x10*3/uL Absolute Nucleated RBC 0.000 (0.0-0.012) X10*3/uL Nucleated RBC % (auto) 0.0 (0.0-0.2) /100WBC Smear Tech's Comments VERIFIED PT 17.0 H (11.1-13.3) SEC INR 1.4 H (0.9-1.1) VBG pH 7.46 H (7.32-7.43) VBG pCO2 46 mmHg VBG pO2 58 mmHg VBG HCO3 33 H (22-26) mmol/L VBG O2 Saturation 89.0 % VBG Base Excess 8.8 mmol/L Sodium 139 (135-145) mmol/L Potassium 4.0 (3.3-5.1) mmol/L Chloride 99 (96-108) mmol/L Carbon Dioxide 27 (22-29) mmol/L Anion Gap 17 (12-20) BUN 29 H (9-16) mg/dL Creatinine 3.45 H (0.5-1.4) mg/dL Estim Creat Clear Calc 17.2 Estimated GFR 18 Random Glucose 53 L* (60-115) mg/dL Lactic Acid 1.2 (0.5-2.0) mmol/L Calcium 9.0 (8.4-10.2) mg/dL Magnesium 2.0 (1.6-2.6) mg/dL Total Bilirubin 1.0 (0.0-1.0) mg/dL Direct Bilirubin 0.4 (0.0-0.5) mg/dL AST 41 H (5-37) U/L ALT 23 (0-40) U/L Alkaline Phosphatase 113 (39-117) U/L Troponin I High Sens 56.1 H D (<3.5-35.0) ng/L C-Reactive Protein 8.36 H (< or = 0.50) mg/dL B-Natriuretic Peptide 91790 H (<100) pg/mL Total Protein 7.0 (6.5-8.0) g/dL Albumin 3.0 L (3.5-5.0) g/dL Lipase 20 (8-78) U/L Procalcitonin 0.88 ng/mL Urine Color Urine Appearance Urine pH (5.0-9.0) Ur Specific May (1.005-1.025) Urine Protein (Neg-Trace) mg/dL Urine Glucose (UA) (Negative) mg/dL Urine Ketones (Negative) mg/dL Urine Blood (Negative) Urine Nitrite (Negative) Ur Leukocyte Esterase (Negative) Urine RBC (0-2) /HPF Urine WBC (0-5) /HPF Ur Squamous Epith Cells (0-2) /HPF Urine Bacteria (None Seen) Hyaline Casts (0-2) /LPF Respiratory Panel Dorsey See Note Adenovirus (Rapid PCR) Not Detected (Not Detect.) B.pert (TEM-PCR) Not Detected (Not Detect.) B.parapertussis DNA PCR Not Detected (Not Detect.) C. pneumoniae DNA (PCR) Not Detected (Not Detect.) Coronavirus OC43 (PCR) Not Detected (Not Detect.) Coronavirus HKU1 (PCR) Not Detected (Not Detect.) Coronavirus 229E (PCR) Not Detected (Not Detect.) Coronavirus NL63 (PCR) Not Detected (Not Detect.) Human Metapneumovir PCR Not Detected (Not Detect.) Influenza A (RT-PCR) Not Detected (Not Detect.) Influenza Type A (PCR) NEGATIVE (Negative) Influenza B (RT-PCR) Not Detected (Not Detect.) Influenza Type B (PCR) NEGATIVE (Negative) M. pneumoniae (PCR) Not Detected (Not Detect.) Parainfluenza 1 (PCR) Not Detected (Not Detect.) Parainfluenza 2 (PCR) Not Detected (Not Detect.) Parainfluenza 3 (PCR) Not Detected (Not Detect.) Parainfluenza 4 (PCR) Not Detected (Not Detect.) RSV (PCR) Not Detected (Not Detect.) RSV RNA Qual (PCR) NEGATIVE (Negative) Entero/Rhino (PCR) Not Detected (Not Detect.) SARS-CoV-2 RNA (RT-PCR) NEGATIVE Not Detected (Negative) 03/14/24 03/14/24 Range/Units 10:43 11:04 WBC (4.8-10.8) X10*3/uL RBC (4.60-5.80) X10*6/uL Hgb (14.0-18.0) g/dl Hct (42.0-52.0) % MCV (80.0-98.0) fL MCH (27.0-33.0) pg MCHC (31.0-36.0) g/dl RDW (11.0-16.0) % Plt Count (160-400) X10*3/uL MPV (9.4-12.4) fL Immature Gran % (Auto) (0.0-0.4) % Neut % (Auto) (45-73) % Lymph % (Auto) (20-40) % Otero % (Auto) (2-11) % Eos % (Auto) (0-4) % Baso % (Auto) (0-2) % Lymph # (Auto) (1.2-4.9) X10*3/uL Otero # (Auto) (0.1-1.2) X10*3/uL Eos # (Auto) (0.0-0.4) X10*3/uL Baso # (Auto) (0.0-0.2) X10*3/uL Abs Immat Gran (auto) (0.00-0.03) X10*3/uL Absolute Neuts (auto) (2.0-8.3) x10*3/uL Absolute Nucleated RBC (0.0-0.012) X10*3/uL Nucleated RBC % (auto) (0.0-0.2) /100WBC Smear Tech's Comments PT (11.1-13.3) SEC INR (0.9-1.1) VBG pH 7.47 H (7.32-7.43) VBG pCO2 38 mmHg VBG pO2 140 mmHg VBG HCO3 28 H (22-26) mmol/L VBG O2 Saturation 100.0 % VBG Base Excess 4.8 mmol/L Sodium (135-145) mmol/L Potassium (3.3-5.1) mmol/L Chloride (96-108) mmol/L Carbon Dioxide (22-29) mmol/L Anion Gap (12-20) BUN (9-16) mg/dL Creatinine (0.5-1.4) mg/dL Estim Creat Clear Calc Estimated GFR Random Glucose (60-115) mg/dL Lactic Acid (0.5-2.0) mmol/L Calcium (8.4-10.2) mg/dL Magnesium (1.6-2.6) mg/dL Total Bilirubin (0.0-1.0) mg/dL Direct Bilirubin (0.0-0.5) mg/dL AST (5-37) U/L ALT (0-40) U/L Alkaline Phosphatase (39-117) U/L Troponin I High Sens (<3.5-35.0) ng/L C-Reactive Protein (< or = 0.50) mg/dL B-Natriuretic Peptide (<100) pg/mL Total Protein (6.5-8.0) g/dL Albumin (3.5-5.0) g/dL Lipase (8-78) U/L Procalcitonin ng/mL Urine Color Dark Yellow Urine Appearance Turbid Urine pH 5.5 (5.0-9.0) Ur Specific May 1.020 (1.005-1.025) Urine Protein 300 (3+) H (Neg-Trace) mg/dL Urine Glucose (UA) Negative (Negative) mg/dL Urine Ketones Trace (Negative) mg/dL Urine Blood Large (3+) H (Negative) Urine Nitrite Negative (Negative) Ur Leukocyte Esterase Large (3+) H (Negative) Urine RBC 11-20 H (0-2) /HPF Urine WBC >50 H (0-5) /HPF Ur Squamous Epith Cells 6-10 (0-2) /HPF Urine Bacteria 2+ (None Seen) Hyaline Casts 6-10 (0-2) /LPF Respiratory Panel Dorsey Adenovirus (Rapid PCR) (Not Detect.) B.pert (TEM-PCR) (Not Detect.) B.parapertussis DNA PCR (Not Detect.) C. pneumoniae DNA (PCR) (Not Detect.) Coronavirus OC43 (PCR) (Not Detect.) Coronavirus HKU1 (PCR) (Not Detect.) Coronavirus 229E (PCR) (Not Detect.) Coronavirus NL63 (PCR) (Not Detect.) Human Metapneumovir PCR (Not Detect.) Influenza A (RT-PCR) (Not Detect.) Influenza Type A (PCR) (Negative) Influenza B (RT-PCR) (Not Detect.) Influenza Type B (PCR) (Negative) M. pneumoniae (PCR) (Not Detect.) Parainfluenza 1 (PCR) (Not Detect.) Parainfluenza 2 (PCR) (Not Detect.) Parainfluenza 3 (PCR) (Not Detect.) Parainfluenza 4 (PCR) (Not Detect.) RSV (PCR) (Not Detect.) RSV RNA Qual (PCR) (Negative) Entero/Rhino (PCR) (Not Detect.) SARS-CoV-2 RNA (RT-PCR) (Negative) Independent Interpretation I performed an independent interpretation of an: EKG, Plain X-Ray (complete white out) and CT Scan Interpretation: Rate: 67 Rhythm: NSR [place]: left Normal P waves. 1st degree AVB LBBB ST T wave : inverted t waves I and aVL, V6, no IRIS qTC: 541 prior studies: qtc prolonged at baseline, no sig change from priors The study has been interpreted contemporaneously by me. . Radiology Impression Discussion of test interpretation with radiology: I have reviewed the radiologist's reading. Independent Historian Clinical information obtained from an independent historian. History obtained from or confirmed by: EMS and Other (family) External Record Review External record reviewed: Inpatient record and Outpatient record Procedures EJ/Peripheral Line Neck R: Time Out Performed: Yes Skin Cleansed in Sterile Fashion: Yes Size (gauge): 18 IV Secured and Dressing Applied: Yes Patient Tolerated Procedure: well and no complications Intubation Intubation Type:: Endotracheal Tube Insertion Intubation Date:: 03/14/24 Time out performed: Yes sedative: Ketamine Mg Given: 50 paralytic: Rocuronium Mg Given: 50 Laryngoscope: Shirin ET Tube Size: 7.5 ET Tube Uncuffed: Yes Tube Secured Depth (cm): 23 Tube Secured Location: lips Tube Placement Confirmation: visualized tube passing through cords, equal breath sounds bilaterally, no breath sounds over epigastrium and confirmation by capnometry Patient Tolerated Procedure: well and no complications Intubation Complications: none Critical Care Time Critical Care Time Critical Care Time: Yes Total Critical Care Time: 75 Attestation: vent management - high flow, bipap, intubation, VBG x 2, family discussions, review of records, repeat assessments, consult, admission I attest to this time spent taking care of the patient Discharge Plan Discharge Clinical Impression: Acute hypoxic respiratory failure, Hypoglycemia, Multifocal pneumonia Hypothermia Qualifiers: Encounter type: initial encounter Qualified Code(s): T68.XXXA - Hypothermia, initial encounter Patient Disposition: Admitted As Inpatient Interventions: Admission Worksheet (ED) Last Done: 03/14/24 13:30 Discharge Date/Time: 03/14/24 13:51 Sepsis Bolus Exclusion Sepsis Bolus Exclusion CHF/Renal Failure This patient met severe sepsis criteria due to the following condition(s):: H ypotension In my clinical judgement the administration of 30 ml/kg of crystalloid would be detrimental to this patient due to the patient's following conditions:: NYHA class III or IV Heart Failure(symptoms with low exertion or rest) and Stage III or IV Chronic Kidney Disease (GFR<30) Replace the 30 mls/kg with (Zero amount not acceptable and all fluids for severe sepsis must be given at GREATER than 125 mls/hr) Crystalloids amount given in mls: (rate must be at least 150cc/hr): 500 Colloids amount given in mls:: 200
[2024-03-14 09:04] LABS: VBG Base Excess 8.8 mmol/L; VBG HCO3 33 mmol/L (22-26); VBG pCO2 46 mmHg; VBG pH 7.46 (7.32-7.43); VBG pO2 58 mmHg
[2024-03-14 09:05] LABS: Basophils Percent Auto 0.2 % (0-2); Eosinophils Percent Auto 0.2 % (0-4); Hemoglobin 11.3 g/dl (14.0-18.0); Imm Gran Abs Auto 0.07 X10*3/uL (0.00-0.03); Imm Gran Pct Auto 0.5 % (0.0-0.4); Lymphocytes Absolute Auto 0.6 X10*3/uL (1.2-4.9); Lymphocytes Percent Auto 4.2 % (20-40); MANUAL DIFF FLAG SCAN; Mean Corpuscular HGB Conc 32.3 g/dl (31.0-36.0); Mean Corpuscular Volume 102.3 fL (80.0-98.0); Mean Platelet Volume 9.2 fL (9.4-12.4); Monocytes Absolute Auto 0.5 X10*3/uL (0.1-1.2); Monocytes Percent Auto 3.7 % (2-11); Neutrophils Percent Auto 91.2 % (45-73); Platelet Count 130 X10*3/uL (160-400); Red Blood Count 3.42 X10*6/uL (4.60-5.80); Red Cell Distribution Width 18.2 % (11.0-16.0); SCAN SMEAR FLAG 1; White Blood Count 13.2 X10*3/uL (4.8-10.8)
--- NOTE | 2024-03-14 09:06 | PC.NURSE ---
20g IV access established in left wrist/lower forearm. Labs drawn and sent for analysis. 2nd set of blood cultures being drawn by ED PCT at this time. Unable to use right arm due to fistula. Pt is a dialysis patient. COVID/Flu/RSV swab results obtained and pending at this time. Plan for CT. Pt is on continuous cardiac monitoring and pulse oximeter to left index finger. Oxygen via high-flow cannula, placed by Respiratory Therapist.
[2024-03-14 09:10] LABS: INTERNATIONAL NORM RATIO 1.4 (0.9-1.1)
[2024-03-14 09:12] LABS: Lactic Acid 1.2 mmol/L (0.5-2.0)
[2024-03-14 09:15] LABS: Venous Blood Gas Refer to POC result
[2024-03-14 09:23] LABS: Troponin-I High Sensitivity 56.1 ng/L (<3.5-35.0)
[2024-03-14] MEDS: cefEPime HCl 1 GM in 0.9 % Sodium Chloride 50 ML IV (09:23)
[2024-03-14 09:24] LABS: SLIDE REVIEW VERIFIED
[2024-03-14 09:41] LABS: Influenza A PCR NEGATIVE (Negative); Influenza B PCR NEGATIVE (Negative); Resp Syncy Virus RNA Qual PCR NEGATIVE (Negative); SARS COV2 PCR INHOUSE NEGATIVE (Negative)
[2024-03-14 09:43] LABS: B Type Natriuretic Peptide 12691 pg/mL (<100)
[2024-03-14] MEDS: Ketamine HCl/NS 50 MG/5 ML SYRINGE IVPUSH (09:48)
[2024-03-14] MEDS: Rocuronium Bromide 50 MG/5 ML VIAL IVPUSH (09:48)
--- NOTE | 2024-03-14 09:48 | MHC.CM.ED ---
Patient currently in ER d/t difficulty breathing. Patient's sister/HCP, Alysia, contacted by T/W at the request of Dr Wilkinson, will the assistance of the certified court interpreter via telephone at [phone]. Alysia is aware of patient's current condition and wants to proceed with the current [facility] requests of full code . Dr Wilkinson present for conversation. Continue to monitor for d/c needs.
[2024-03-14] MEDS: fentaNYL citrate/NS 1,000 MCG/100 ML PLAST..BAG 2.5 MCG IVCONT (10:06)
[2024-03-14] MEDS: Midazolam HCl/NS 50 MG/50 ML PLAST..BAG IVCONT (10:07)
--- NOTE | 2024-03-14 10:15 | PC.NURSE ---
late charting due to emergent patient care, patient noted to by hypoxic on high flow with respiratory at the bedside, patient O2 saturation unable to to go above 85%, MD called to bedside to evaluate. patient difficult to arouse, STAT portable chest xray ordered, patient sat up in bed. MD called family, patient is full code, plan for intubation and RSI started per MD. patient premedicated and hyperoxygenated prior to intubation. intubated by MD and respiratory, 7.5 tube [id number] 23cm at the lip, +color change, breath sounds equal bilaterally, capnography 38., MD placed 18g EJ for further IV access. patient to CT with respiratory and RN while remaining on Monitor, plan of care ongoing
[2024-03-14] MEDS: Furosemide 100 MG/10 ML VIAL 80 MG IVPUSH (10:29)
[2024-03-14 10:30] LABS: Alanine Aminotransferase 23 U/L (0-40); Alkaline Phosphatase 113 U/L (39-117); Anion Gap 17 (12-20); Aspartate Amino Transferase 41 U/L (5-37); Bilirubin Direct 0.4 mg/dL (0.0-0.5); Blood Urea Nitrogen 29 mg/dL (9-16); C Reactive Protein 8.36 mg/dL (< or = 0.50); Carbon Dioxide 27 mmol/L (22-29); Chloride 99 mmol/L (96-108); Creatinine Clr Calc Pharmacy 17.2; Estimated Glomerular Filt Rate 18; Glucose Random 53 mg/dL (60-115); Lipase 20 U/L (8-78); Sodium 139 mmol/L (135-145)
[2024-03-14 10:45] LABS: Procalcitonin 0.88 ng/mL
--- NOTE | 2024-03-14 10:45 | PC.NURSE ---
16fr temperature sensing mederos placed w/o complications. small amount of dark yellow/cloudy urine noted immediately post output. approximately 25ml noted upon immediate insertion. urine obtained/sent to lab. after placing temperature sensing mederos - it was noted that pt was hypothermic at 92.7 via core temperature. provider notified/aware. vance browning applied to pt. effectiveness pending. pt remains mechanically ventilated. pt does not seem to be in any signs of distress. plan of care ongoing.
--- NOTE | 2024-03-14 10:50 | PC.NURSE ---
pt's core temperature continues to increase s/p placing pt on blanket warmer. pt remains on mechanical ventilation via RT at this time - seems to be in no apparent distress.
[2024-03-14 10:52] LABS: Appearance Urine Turbid; Color Urine Dark Yellow; Glucose Urine UA Negative (Negative); Leukocyte Esterase Urine Large (3+) (Negative); Nitrite Urine Negative (Negative); PH 5.5 (5.0-9.0); UMIC TRIGGER UACC YES; Urine Blood Large (3+) (Negative); Urine Ketones Trace mg/dL (Negative); Urine Protein 300 (3+) mg/dL (Neg-Trace)
--- NOTE | 2024-03-14 10:59 | PC.NURSE ---
repeat vbg obtained/sent to lab.
[2024-03-14 11:07] LABS: Venous Blood Gas Refer to POC result
[2024-03-14 11:08] LABS: VBG Base Excess 4.8 mmol/L; VBG HCO3 28 mmol/L (22-26); VBG pCO2 38 mmHg; VBG pH 7.47 (7.32-7.43); VBG pO2 140 mmHg
--- NOTE | 2024-03-14 11:12 | P.HPCC_ITS ---
History of Present Illness Date of Service: 03/14/24 Chief Complaint: Acute Hypoxic Respiratory Failure Patient 69 Y M with hypertension, diabetes mellitus, CAD c/b HF, paroxysmal atrial fibrillation on apixaban, ESRD on /, presenting from facility w/ dyspnea, found to be hypoxic; in emergency department, patient persistently hypoxic, intubated; admitted ICU for c/v pulmonary edema and/or pneumonia Review of Systems 2 Review of Systems: Yes Unobtainable due to mental status PMFSH Past Medical History Medical History ESRD on dialysis Toxic metabolic encephalopathy Bacteremia due to Staphylococcus Gallstones Anemia HFrEF (heart failure with reduced ejection fraction) ESRD (end stage renal disease) Community acquired pneumonia Pneumonia Acute respiratory failure with hypoxia Anemia CKD (chronic kidney disease) ESRD (end stage renal disease) on dialysis Type 2 diabetes mellitus with unspecified complications Essential hypertension Chronic kidney disease, unspecified Chronic heart failure with preserved ejection fraction PAF (paroxysmal atrial fibrillation) Atherosclerotic cardiovascular disease Family History Family History Father Esophageal cancer Mother Diabetes Hypertension Surgical History Surgical History History of colon resection History of cardiac catheterization (~07/18/20) Social History Social History Household Members: None Housing: Apartment Housing Other:: elderly housing Do you presently have visiting nurse or other home services: Yes Unable to assess alcohol history related to: Unknown Alcohol intake: never Patient Tobacco Use Status: Never used Tobacco Second Hand Smoke Exposure: No Advance Directives: Yes Advance Directives on File: Yes Advance Directives Date on File: 09/21/21 service: No Current occupational status: unemployed Meds Allergies Allergy/AdvReac Type Severity Reaction Status Date / Time No Known Allergies Allergy Verified 03/14/24 08:59 Active Medications: Current Medications Fentanyl (Sublimaze/Ns) 1,000 mcg in 100 mls @ 0 mls/hr IVCONT .Q0M [facility]; Protocol Last Admin: 03/14/24 10:06 Dose: 25 mcg/hr, 2.5 mls/hr Midazolam HCl (Versed) 50 mg in 50 mls @ 2 mls/hr IVCONT .Q24H [facility] Last Admin: 03/14/24 10:07 Dose: 2 mg/hr, 2 mls/hr Dextrose (D10) 250 mls @ 750 mls/hr IV Q15M PRN PRN Reason: per Hypoglycemia Standing Ord. Naloxone HCl (Naloxone Hcl 0.4 Mg/Ml Vial) 0.2 mg IVPUSH Q2M PRN PRN Reason: Excessive sedation or RR < 8 Home Medications ?Medication ?Instructions ?Recorded ?Confirmed ?Last Taken ?Type amiodarone 200 mg tablet 1 tab PO DAILY 02/20/22 03/14/24 08/25/22 History bumetanide 1 mg tablet 1 tab PO BID 02/20/22 03/14/24 08/25/22 History carvedilol 3.125 mg tablet 1 tab PO BID 02/20/22 03/14/24 08/25/22 History cholecalciferol (vitamin D3) 50 1 tab PO DAILY 02/20/22 03/14/24 08/25/22 History mcg (2,000 unit) tablet insulin glargine 100 unit/mL (3 4 unit subcut DAILY 02/20/22 03/14/24 08/25/22 History mL) subcutaneous pen (Lantus Solostar U-100 Insulin) fluoxetine 20 mg capsule 1 cap PO DAILY 05/01/22 03/14/24 08/25/22 History acetaminophen 325 mg tablet 650 mg PO BID PRN Back Pain 03/14/24 03/14/24 Unknown History amino ac-protein hydro-whey 1 ea PO BID 03/14/24 03/14/24 Unknown History protein 10 gram-100 kcal/30 mL oral liquid (ProSource) aspirin 81 mg chewable tablet 81 mg PO DAILY 03/14/24 03/14/24 Unknown History atropine sulfate (PF) 1 % eye 1 drp ophthalmic (eye) BID 03/14/24 03/14/24 Unknown History drops in a dropperette brimonidine 0.2 % eye drops 1 drp ophthalmic (eye) TID 03/14/24 03/14/24 Unknown History dorzolamide-timolol (PF) 2 %-0.5 % 1 drp ophthalmic-Left BID 03/14/24 03/14/24 Unknown History eye drops in a dropperette (Cosopt (PF)) emollient 1 appl topical DAILY 03/14/24 03/14/24 Unknown History ergocalciferol (vitamin D2) 1,250 1,250 mcg PO DAILY 03/14/24 03/14/24 Unknown History mcg (50,000 unit) capsule (Vitamin D2) insulin lispro 100 unit/mL 1 sliding scale dose subcut 03/14/24 03/14/24 Unknown History subcutaneous pen (Humalog KwikPen USEASDIRECTD (U-100) Insulin) latanoprost 0.005 % eye drops 1 drp ophthalmic-Left BEDTIME 03/14/24 03/14/24 Unknown History midodrine 5 mg tablet 5 mg PO TUTHSA 03/14/24 03/14/24 Unknown History multivitamin 1 tab PO DAILY 03/14/24 03/14/24 Unknown History ondansetron HCl 4 mg tablet 4 mg PO Q6H PRN Nausea 03/14/24 03/14/24 Unknown History peg [id number] 1 1 drp ophthalmic-Left BID Dry Eyes 03/14/24 03/14/24 Unknown History %-0.2 %-0.2 % eye drops (Artificial Tears ([id number])) trazodone 50 mg tablet 25 mg PO BEDTIME 03/14/24 03/14/24 Unknown History triamcinolone acetonide 0.1 % 1 appl topical BID 03/14/24 03/14/24 Unknown History topical cream valsartan 40 mg tablet 40 mg PO SUMOWEFR 03/14/24 03/14/24 Unknown History Physical Exam 2 Vital Signs: Vital Signs: Last Vital Signs Temp 95.5 F L 03/14/24 10:49 Pulse 78 03/14/24 10:49 Resp 20 03/14/24 10:49 BP 150/78 H 03/14/24 10:49 Pulse Ox 92 03/14/24 10:49 O2 Del Method Mechanical Ventil ation 03/14/24 10:49 FiO2 100 03/14/24 10:42 Oxygen Flow Rate 10 03/14/24 08:28 BMI result Body Mass Index 32.1 Const: Other: intubated, sedated General: comfortable and no acute distress HEENT: Head: Yes normal to inspection, Yes normocephalic and Yes atraumatic Eyes: General: appearance normal, both eyes and all related structures Neck: Neck: Yes normal visual inspection, Yes full ROM, Yes trachea midline and Yes supple Chest: Chest palpation & inspection: normal inspection of the chest Resp: Other: appreciable diffuse rhonchi throughout; no appreciable rales, wheezing Effort & Inspection: normal respiratory effort Cardio: Rate: regular rate Rhythm: regular rhythm GI: Inspection: Yes normal to inspection, No Abdominal wall edema and No distended Palpation (GI): Soft to palpation, not firm, nontender, no guarding and not rigid Skin: General skin exam: no rashes or lesions noted Neuro: Other: unable to assess General: tone normal Extrem: General: Yes normal to inspection, Yes full ROM, Yes capillary refill normal and Yes no clubbing, cyanosis or edema Psych: Other: unable to assess Results Labs 03/14/24 12:37 03/14/24 12:37 Labs: Laboratory Results - last 24 hr 03/14/24 03/14/24 03/14/24 08:51 09:00 09:59 MCV 102.3 H MCH 33.0 MCHC 32.3 RDW 18.2 H Plt Count 130 L MPV 9.2 L Immature Gran % (Auto) 0.5 H Neut % (Auto) 91.2 H Lymph % (Auto) 4.2 L [place] % (Auto) 3.7 Eos % (Auto) 0.2 Baso % (Auto) 0.2 Lymph # (Auto) 0.6 L [place] # (Auto) 0.5 Eos # (Auto) 0.0 Baso # (Auto) 0.0 Abs Immat Gran (auto) 0.07 H Absolute Neuts (auto) 12.0 H Absolute Nucleated RBC 0.000 Nucleated RBC % (auto) 0.0 Smear Tech's Comments VERIFIED PT 17.0 H INR 1.4 H VBG pH 7.46 H VBG pCO2 46 VBG pO2 58 VBG HCO3 33 H VBG O2 Saturation 89.0 VBG Base Excess 8.8 Anion Gap 17 Estim Creat Clear Calc 17.2 Estimated GFR 18 Random Glucose 53 L* Lactic Acid 1.2 Calcium 9.0 Magnesium 2.0 Total Bilirubin 1.0 Direct Bilirubin 0.4 AST 41 H ALT 23 Alkaline Phosphatase 113 Troponin I High Sens 56.1 H D C-Reactive Protein 8.36 H B-Natriuretic Peptide 40327 H Total Protein 7.0 Albumin 3.0 L Lipase 20 Procalcitonin 0.88 Urine Color Urine Appearance Urine pH Ur Specific [place] Urine Protein Urine Glucose (UA) Urine Ketones Urine Blood Urine Nitrite Ur Leukocyte Esterase Influenza Type A (PCR) NEGATIVE Influenza Type B (PCR) NEGATIVE RSV RNA Qual (PCR) NEGATIVE SARS-CoV-2 RNA (RT-PCR) NEGATIVE 03/14/24 03/14/24 10:43 11:04 MCV MCH MCHC RDW Plt Count MPV Immature Gran % (Auto) Neut % (Auto) Lymph % (Auto) [place] % (Auto) Eos % (Auto) Baso % (Auto) Lymph # (Auto) [place] # (Auto) Eos # (Auto) Baso # (Auto) Abs Immat Gran (auto) Absolute Neuts (auto) Absolute Nucleated RBC Nucleated RBC % (auto) Smear Tech's Comments PT INR VBG pH 7.47 H VBG pCO2 38 VBG pO2 140 VBG HCO3 28 H VBG O2 Saturation 100.0 VBG Base Excess 4.8 Anion Gap Estim Creat Clear Calc Estimated GFR Random Glucose Lactic Acid Calcium Magnesium Total Bilirubin Direct Bilirubin AST ALT Alkaline Phosphatase Troponin I High Sens C-Reactive Protein B-Natriuretic Peptide Total Protein Albumin Lipase Procalcitonin Urine Color Dark Yellow Urine Appearance Turbid Urine pH 5.5 Ur Specific [place] 1.020 Urine Protein 300 (3+) H Urine Glucose (UA) Negative Urine Ketones Trace Urine Blood Large (3+) H Urine Nitrite Negative Ur Leukocyte Esterase Large (3+) H Influenza Type A (PCR) Influenza Type B (PCR) RSV RNA Qual (PCR) SARS-CoV-2 RNA (RT-PCR) Assessment and Plan (1) Acute hypoxic respiratory failure: Status: Acute (2) Hypothermia: Qualifiers: Encounter type: initial encounter Qualified Code(s): T68.XXXA - Hypothermia, initial encounter Status: Acute (3) End stage renal disease: Status: Acute Plan Patient 69 Y M with hypertension, diabetes mellitus, CAD c/b HF, paroxysmal atrial fibrillation on apixaban, ESRD on //, presenting from facility w/ dyspnea, found to be hypoxic; in emergency department, patient persistently hypoxic, intubated; admitted ICU for c/v volume overload and/or pneumonia N: intubated, sedated w/ propofol gtt CV: hemodynamically stable; to monitor R: acute hypoxic respiratory failure, likely d/t pulmonary edema and/or pneumonia; intubated, wean as tolerated GI: NPO : ESRD, c/f volume overload; appreciate nephrology recommendations H: no acute issues; paroxysmal atrial fibrillation on apixaban ID: empiric vanc/zosyn for possible pneumonia E: diabetes mellitus c/b hypoglycemia; to monitor closely P: no acute issues
[2024-03-14 11:14] LABS: Bacteria Urine 2+ (None Seen); UACC Culture Trigger YES; WBC Urine >50 /HPF (0-5)
[2024-03-14 11:48] LABS: Adenovirus PCR Not Detected (Not Detect.); Bordetella parapertussis PCR Not Detected (Not Detect.); Bordetella pertussis PCR Not Detected (Not Detect.); Chlamydia pneumoniae PCR Not Detected (Not Detect.); Coronavirus 229E PCR Not Detected (Not Detect.); Coronavirus HKU1 PCR Not Detected (Not Detect.); Coronavirus NL63 PCR Not Detected (Not Detect.); Coronavirus OC43 PCR Not Detected (Not Detect.); Human metapneumovirus PCR Not Detected (Not Detect.); Influenza A PCR Not Detected (Not Detect.); Influenza B PCR Not Detected (Not Detect.); Mycoplasma pneumoniae PCR Not Detected (Not Detect.); Parainfluenza 1 PCR Not Detected (Not Detect.); Parainfluenza 2 PCR Not Detected (Not Detect.); Parainfluenza 3 PCR Not Detected (Not Detect.); Parainfluenza 4 PCR Not Detected (Not Detect.); RSV PCR Not Detected (Not Detect.); Rhino/Enterovirus PCR Not Detected (Not Detect.)
[2024-03-14 11:50] LABS: SARS-CoV-2 PCR Not Detected (Not Detect.)
[2024-03-14] MEDS: Dextrose 10 % 250 ML 750 ML IV (12:25)
[2024-03-14 12:32] LABS: Glucose, Whole Blood 20 mg/dL (60-115)
[2024-03-14] MEDS: Dextrose 50 % 25 GM/50 ML SYRINGE IVPUSH (12:35)
--- NOTE | 2024-03-14 12:45 | PC.NURSE ---
Late entry: at 12:35pm, pt was medicated for hypoglycemia POC Glucose 20. Dextrose 50g was unavailable in ED Pyxis. Pharmacist called by data integrity specialist Aggie on behalf of this RN. Dextrose 10% drip initiated by nursing while awaiting arrival for Dextrose from pharmacy. Family at bedside and aware of low glucose levels. at 12:45pm, repeat POC glucose was 330. Dr. Wilkinson notified. Also noted to have decreased BP. NS 500ml initiated. Report given to Duncan CEJA in ICU at this time. 22g IV access established by Daly CEJA in left hand & documented. Prepared for transport/transfer to [facility] 254-1.
[2024-03-14 12:47] LABS: Venous Blood Gas Refer to POC result
[2024-03-14 12:47] LABS: VBG Base Excess 7.8 mmol/L; VBG HCO3 32 mmol/L (22-26); VBG pCO2 43 mmHg; VBG pH 7.47 (7.32-7.43); VBG pO2 128 mmHg
[2024-03-14 12:50] LABS: Hematocrit 37.4 % (42.0-52.0); Hemoglobin 12.2 g/dl (14.0-18.0); Mean Corpuscular HGB Conc 32.6 g/dl (31.0-36.0); Mean Corpuscular Hemoglobin 33.6 pg (27.0-33.0); Mean Platelet Volume 8.9 fL (9.4-12.4); Platelet Count 111 X10*3/uL (160-400); Red Blood Count 3.63 X10*6/uL (4.60-5.80); Red Cell Distribution Width 18.1 % (11.0-16.0); White Blood Count 6.5 X10*3/uL (4.8-10.8)
[2024-03-14 12:51] LABS: Glucose, Whole Blood 330 mg/dL (60-115)
--- NOTE | 2024-03-14 12:58 | PHA.MEDREC ---
Addendum entered by Olivia Sanchez RPh 03/14/24 13:16: Reviewed by [facility] ED Original Note: Pharmacy Consult ? Medication Reconciliation Pharmacy has completed the medication reconciliation. Confirmed medications with list provided by [facility].
[2024-03-14 13:06] LABS: Band Neutrophils Percent 9 % (3-5); Lymphocytes Absolute Manual 0.5 X10*3/uL (1.2-4.9); Lymphocytes Percent Manual 7 % (20-40); Neutrophils Percent Manual 84 % (45-73)
[2024-03-14 13:08] LABS: Acanthocytes 2+ (3-5) /OIF; Burr Cells 2+ (3-5) /OIF; Macrocytosis 1+ (5-14) /OIF; Platelet Estimate DECREASED (NORMAL); Platelet Morphology Comment NORMAL; RBC Morphology NOTED; Schistocytes 1+ (0-2) /OIF; Toxic Vacuolation PRESENT
[2024-03-14 13:10] LABS: Alanine Aminotransferase 20 U/L (0-40); Albumin Level 2.7 g/dL (3.5-5.0); Alkaline Phosphatase 106 U/L (39-117); Anion Gap 17 (12-20); Aspartate Amino Transferase 38 U/L (5-37); Bilirubin Total 1.1 mg/dL (0.0-1.0); Blood Urea Nitrogen 29 mg/dL (9-16); Calcium 8.4 mg/dL (8.4-10.2); Carbon Dioxide 24 mmol/L (22-29); Chloride 100 mmol/L (96-108); Creatinine Clr Calc Pharmacy 17.6; Estimated Glomerular Filt Rate 18; Glucose Random 54 mg/dL (60-115); Phosphorus 2.8 mg/dL (2.7-4.5); Potassium 4.3 mmol/L (3.3-5.1); Sodium 137 mmol/L (135-145); Total Protein 6.5 g/dL (6.5-8.0)
[2024-03-14] MEDS: 0.9 % Sodium Chloride 500 ML IV (13:15)
--- NOTE | 2024-03-14 13:30 | PC.NURSE ---
Patient transferred to ICU bed 254-1 with this RN & respiratory therapist. Fentanyl drip, Midazolam drip infusing as ordered. Dextrose 10 drip stopped due to hyperglycemia 330 via POC. Repeat POC Glucose 260 upon arrival to ICU bed. Dextrose given as ordered via 20g IV access in left wrist/forearm. Family members in waiting room, ICU doctor speaking with them at this time. Report given to Duncan CEJA in ICU, and assumes care of the patient at this time.
[2024-03-14 13:34] LABS: Glucose, Whole Blood 260 mg/dL (60-115)
[2024-03-14 13:34] LABS: Procalcitonin 1.53 ng/mL
[2024-03-14] MEDS: vancomycin/NS 2,000 MG/500 ML PLAST..BAG 250 MG IV (13:42)
[2024-03-14] MEDS: Albumin Human 25 % 100 ML 133.33 ML IV ×2 (13:48→14:38)
[2024-03-14] MEDS: Piperacillin Sodium/Tazobactam 4.5 GM in 0.9 % Sodium Chloride 100 ML IV (13:53)
[2024-03-14] MEDS: propofoL 1,000 MG/100 ML VIAL 9.24 MG IVCONT (14:06)
[2024-03-14] MEDS: Bumetanide 1 MG/4 ML VIAL IVPUSH (14:14)
[2024-03-14] MEDS: Norepinephrine Bitartrate/D5W 8 MG/250 ML PLAST..BAG 7.22 MG IVCONT (14:37)
--- NOTE | 2024-03-14 15:29 | W.PM.CCHP ---
Procedures Date of Service Date of Service: 03/14/24 Central Line Placement Right Femoral: Central Line Comments: of note, patient became hypoxic when attempting IJ central line Consent for Procedure: Emergent-no informed consent obtained Time out performed: Yes Sterile Technique Used: Yes Patient placed on monitor/pulse ox: Yes MD prep: mask, gown and gloves Central line prep: Chlorhexidine scrub and sterile drapes applied Ultrasound used for placement: Yes Central line lumen inserted: triple Post procedure: sutured in place, good blood return, all ports aspirated, flushed, capped and sterile dressing applied Patient tolerated procedure: well and no complications Complications: none
[2024-03-14 15:57] LABS: Glucose, Whole Blood 174 mg/dL (60-115)
[2024-03-14 17:49] LABS: Glucose, Whole Blood 158 mg/dL (60-115)
[2024-03-14 19:59] LABS: Glucose, Whole Blood 158 mg/dL (60-115)
[2024-03-14 22:04] LABS: VBG Base Excess 5.1 mmol/L; VBG HCO3 29 mmol/L (22-26); VBG pCO2 43 mmHg; VBG pH 7.44 (7.32-7.43); VBG pO2 64 mmHg
[2024-03-14 22:06] LABS: Venous Blood Gas Refer to POC result
[2024-03-14] MEDS: Chlorhexidine Gluc Oral Rinse 15 ML MOUTHWASH BUCCAL (23:18)
[2024-03-15] VITALS (35 sets, daily range): BP systolic 86–138; BP diastolic 42–66; PULSE 56–75; RESP 18–35; TEMP 34.3–37.4; O2SAT 97–100; BMI 21.6
[2024-03-15 00:03] LABS: Glucose, Whole Blood 134 mg/dL (60-115)
[2024-03-15] MEDS: Piperacillin Sodium/Tazobactam 4.5 GM in 0.9 % Sodium Chloride 100 ML IV ×2 (00:34→12:06)
[2024-03-15] MEDS: propofoL 1,000 MG/100 ML VIAL 4.62 MG IVCONT (00:36)
[2024-03-15 03:57] LABS: Glucose, Whole Blood 108 mg/dL (60-115)
[2024-03-15 05:16] LABS: VBG Base Excess 5.8 mmol/L; VBG HCO3 29 mmol/L (22-26); VBG pCO2 39 mmHg; VBG pH 7.48 (7.32-7.43); VBG pO2 45 mmHg
[2024-03-15 05:17] LABS: Venous Blood Gas Refer to POC result
[2024-03-15 05:31] LABS: Hematocrit 29.1 % (42.0-52.0); Hemoglobin 9.5 g/dl (14.0-18.0); Mean Corpuscular HGB Conc 32.6 g/dl (31.0-36.0); Mean Platelet Volume 9.7 fL (9.4-12.4); Red Blood Count 2.88 X10*6/uL (4.60-5.80); Red Cell Distribution Width 18.1 % (11.0-16.0); White Blood Count 15.3 X10*3/uL (4.8-10.8)
[2024-03-15 05:34] LABS: Platelet Count 93 X10*3/uL (160-400)
[2024-03-15 05:49] LABS: Albumin Level 3.1 g/dL (3.5-5.0); Creatinine Clr Calc Pharmacy 12.3; Estimated Glomerular Filt Rate 15; Magnesium 1.8 mg/dL (1.6-2.6)
[2024-03-15 06:00] LABS: Band Neutrophils Percent 27 % (3-5); Lymphocytes Absolute Manual 0.6 X10*3/uL (1.2-4.9); Lymphocytes Percent Manual 4 % (20-40); Monocytes Absolute Manual 0.2 X10*3/uL (0.1-1.2); Monocytes Percent Manual 1 % (2-11); Neutrophils Absolute Manual 14.5 X10*3/uL (2.0-8.3); Neutrophils Percent Manual 68 % (45-73)
[2024-03-15 06:02] LABS: Acanthocytes 1+ (0-2) /OIF; Macrocytosis 1+ (5-14) /OIF; Ovalocytes 1+ (5-14) /OIF; Platelet Estimate SLIGHTLY DECREASED (NORMAL); Platelet Morphology Comment NORMAL; RBC Morphology NOTED; Schistocytes 1+ (0-2) /OIF
[2024-03-15 06:03] LABS: Hypochromasia 1+ (5-14) /OIF
[2024-03-15 06:13] LABS: Anion Gap 17 (12-20); Blood Urea Nitrogen 34 mg/dL (9-16); Calcium 8.8 mg/dL (8.4-10.2); Carbon Dioxide 26 mmol/L (22-29); Chloride 97 mmol/L (96-108); Glucose Random 120 mg/dL (60-115); Potassium 3.9 mmol/L (3.3-5.1); Sodium 136 mmol/L (135-145)
--- NOTE | 2024-03-15 07:00 | ECG_ITS ---
Test Reason : QTC Prolongation Blood Pressure : / mmHG Vent. Rate : 062 BPM Atrial Rate : 062 BPM P-R Int : 214 ms QRS Dur : 140 ms QT Int : 496 ms P-R-T Axes : 067 -55 118 degrees QTc Int : 503 ms Sinus rhythm with 1st degree A-V block Left axis deviation Left bundle branch block Prolonged QT Abnormal ECG When compared with ECG of 14-MAR-2024 12:02, Nonspecific T wave abnormality now evident in Anterior leads QT has shortened Referred By: Park Walter Electronically Signed By:ISAIAH PANDEY
--- NOTE | 2024-03-15 07:58 | P.PNCC_ITS ---
Subjective Subjective Date of Service: 03/15/24 Interval History: no significant overnight events Critical Care Time (minutes): 60 Physical Exam 2 Vital Signs: Vital Signs: Last Vital Signs Temp 99.1 F 03/15/24 07:00 Pulse 61 03/15/24 07:00 Resp 18 03/15/24 07:00 BP 130/57 L 03/15/24 07:00 Pulse Ox 100 03/15/24 07:00 O2 Del Method Mechanical Ventil ation 03/15/24 07:00 FiO2 45 03/15/24 07:00 Oxygen Flow Rate 10 03/14/24 08:28 BMI result Body Mass Index 21.6 Const: Other: intubated, sedated HEENT: Head: Yes normal to inspection, Yes normocephalic and Yes atraumatic Eyes: General: appearance normal, both eyes and all related structures Neck: Neck: Yes normal visual inspection, Yes full ROM, Yes trachea midline and Yes supple Chest: Chest palpation & inspection: normal inspection of the chest Resp: Other: some appreciable rhonchi; no appreciable rales, wheezing Effort & Inspection: normal respiratory effort Cardio: Rate: regular rate Rhythm: regular rhythm GI: Inspection: Yes normal to inspection, No Abdominal wall edema and No distended Palpation (GI): Soft to palpation, not firm, nontender, no guarding and not rigid : Male General Exam: Yes normal external exam Skin: General skin exam: no rashes or lesions noted Neuro: General: tone normal Extrem: General: Yes normal to inspection, Yes full ROM, Yes capillary refill normal and Yes no clubbing, cyanosis or edema Psych: Other: unable to assess Objective Data Labs 03/15/24 05:10 03/15/24 05:10 Labs: Laboratory Results - last 24 hr 03/14/24 03/14/24 03/14/24 08:51 09:00 09:59 WBC 13.2 H RBC 3.42 L Hgb 11.3 L Hct 35.0 L MCV 102.3 H MCH 33.0 MCHC 32.3 RDW 18.2 H Plt Count 130 L MPV 9.2 L Immature Gran % (Auto) 0.5 H Neut % (Auto) 91.2 H Lymph % (Auto) 4.2 L Larue % (Auto) 3.7 Eos % (Auto) 0.2 Baso % (Auto) 0.2 Lymph # (Auto) 0.6 L Larue # (Auto) 0.5 Eos # (Auto) 0.0 Baso # (Auto) 0.0 Abs Immat Gran (auto) 0.07 H Absolute Neuts (auto) 12.0 H Absolute Nucleated RBC 0.000 Nucleated RBC % (auto) 0.0 Neutrophils % (Manual) Band Neutrophils % Lymphocytes % (Manual) Monocytes % (Manual) Abs Neuts (Manual) Lymphocytes # (Manual) Monocytes # (Manual) Toxic Vacuolation Platelet Estimate Plt Morphology Comment RBC Morphology Hypochromasia Macrocytosis Ovalocytes Jerry Cells Acanthocytes (Spur) Schistocytes Smear Tech's Comments VERIFIED PT 17.0 H INR 1.4 H VBG pH 7.46 H VBG pCO2 46 VBG pO2 58 VBG HCO3 33 H VBG O2 Saturation 89.0 VBG Base Excess 8.8 Sodium 139 Potassium 4.0 Chloride 99 Carbon Dioxide 27 Anion Gap 17 BUN 29 H Creatinine 3.45 H Estim Creat Clear Calc 17.2 Estimated GFR 18 POC Glucose Random Glucose 53 L* Lactic Acid 1.2 Calcium 9.0 Phosphorus Magnesium 2.0 Total Bilirubin 1.0 Direct Bilirubin 0.4 AST 41 H ALT 23 Alkaline Phosphatase 113 Troponin I High Sens 56.1 H D C-Reactive Protein 8.36 H B-Natriuretic Peptide 49616 H Total Protein 7.0 Albumin 3.0 L Lipase 20 Procalcitonin 0.88 Urine Color Urine Appearance Urine pH Ur Specific [place] Urine Protein Urine Glucose (UA) Urine Ketones Urine Blood Urine Nitrite Ur Leukocyte Esterase Urine RBC Urine WBC Ur Squamous Epith Cells Urine Bacteria Hyaline Casts Respiratory Panel Dorsey See Note Adenovirus (Rapid PCR) Not Detected B.pert (TEM-PCR) Not Detected B.parapertussis DNA PCR Not Detected C. pneumoniae DNA (PCR) Not Detected Coronavirus OC43 (PCR) Not Detected Coronavirus HKU1 (PCR) Not Detected Coronavirus 229E (PCR) Not Detected Coronavirus NL63 (PCR) Not Detected Human Metapneumovir PCR Not Detected Influenza A (RT-PCR) Not Detected Influenza Type A (PCR) NEGATIVE Influenza B (RT-PCR) Not Detected Influenza Type B (PCR) NEGATIVE M. pneumoniae (PCR) Not Detected Parainfluenza 1 (PCR) Not Detected Parainfluenza 2 (PCR) Not Detected Parainfluenza 3 (PCR) Not Detected Parainfluenza 4 (PCR) Not Detected RSV (PCR) Not Detected RSV RNA Qual (PCR) NEGATIVE Entero/Rhino (PCR) Not Detected SARS-CoV-2 RNA (RT-PCR) NEGATIVE Not Detected Blood Type Antibody Screen 03/14/24 03/14/24 03/14/24 10:43 11:04 12:22 WBC RBC Hgb Hct MCV MCH MCHC RDW Plt Count MPV Immature Gran % (Auto) Neut % (Auto) Lymph % (Auto) Larue % (Auto) Eos % (Auto) Baso % (Auto) Lymph # (Auto) Larue # (Auto) Eos # (Auto) Baso # (Auto) Abs Immat Gran (auto) Absolute Neuts (auto) Absolute Nucleated RBC Nucleated RBC % (auto) Neutrophils % (Manual) Band Neutrophils % Lymphocytes % (Manual) Monocytes % (Manual) Abs Neuts (Manual) Lymphocytes # (Manual) Monocytes # (Manual) Toxic Vacuolation Platelet Estimate Plt Morphology Comment RBC Morphology Hypochromasia Macrocytosis Ovalocytes Jerry Cells Acanthocytes (Spur) Schistocytes Smear Tech's Comments PT INR VBG pH 7.47 H VBG pCO2 38 VBG pO2 140 VBG HCO3 28 H VBG O2 Saturation 100.0 VBG Base Excess 4.8 Sodium Potassium Chloride Carbon Dioxide Anion Gap BUN Creatinine Estim Creat Clear Calc Estimated GFR POC Glucose 20 L* Random Glucose Lactic Acid Calcium Phosphorus Magnesium Total Bilirubin Direct Bilirubin AST ALT Alkaline Phosphatase Troponin I High Sens C-Reactive Protein B-Natriuretic Peptide Total Protein Albumin Lipase Procalcitonin Urine Color Dark Yellow Urine Appearance Turbid Urine pH 5.5 Ur Specific [place] 1.020 Urine Protein 300 (3+) H Urine Glucose (UA) Negative Urine Ketones Trace Urine Blood Large (3+) H Urine Nitrite Negative Ur Leukocyte Esterase Large (3+) H Urine RBC 11-20 H Urine WBC >50 H Ur Squamous Epith Cells 6-10 Urine Bacteria 2+ Hyaline Casts 6-10 Respiratory Panel Dorsey Adenovirus (Rapid PCR) B.pert (TEM-PCR) B.parapertussis DNA PCR C. pneumoniae DNA (PCR) Coronavirus OC43 (PCR) Coronavirus HKU1 (PCR) Coronavirus 229E (PCR) Coronavirus NL63 (PCR) Human Metapneumovir PCR Influenza A (RT-PCR) Influenza Type A (PCR) Influenza B (RT-PCR) Influenza Type B (PCR) M. pneumoniae (PCR) Parainfluenza 1 (PCR) Parainfluenza 2 (PCR) Parainfluenza 3 (PCR) Parainfluenza 4 (PCR) RSV (PCR) RSV RNA Qual (PCR) Entero/Rhino (PCR) SARS-CoV-2 RNA (RT-PCR) Blood Type Antibody Screen 03/14/24 03/14/24 03/14/24 12:37 12:43 12:45 WBC 6.5 RBC 3.63 L Hgb 12.2 L Hct 37.4 L MCV 103.0 H MCH 33.6 H MCHC 32.6 RDW 18.1 H Plt Count 111 L MPV 8.9 L Immature Gran % (Auto) Cancelled Neut % (Auto) Cancelled Lymph % (Auto) Cancelled Larue % (Auto) Cancelled Eos % (Auto) Cancelled Baso % (Auto) Cancelled Lymph # (Auto) Cancelled Larue # (Auto) Cancelled Eos # (Auto) Cancelled Baso # (Auto) Cancelled Abs Immat Gran (auto) Cancelled Absolute Neuts (auto) Cancelled Absolute Nucleated RBC 0.000 Nucleated RBC % (auto) 0.0 Neutrophils % (Manual) 84 H Band Neutrophils % 9 H Lymphocytes % (Manual) 7 L Monocytes % (Manual) Abs Neuts (Manual) 6.0 Lymphocytes # (Manual) 0.5 L Monocytes # (Manual) Toxic Vacuolation PRESENT Platelet Estimate DECREASED Plt Morphology Comment NORMAL RBC Morphology NOTED Hypochromasia Macrocytosis 1+ (5-14) Ovalocytes [place] Cells 2+ (3-5) Acanthocytes (Spur) 2+ (3-5) Schistocytes 1+ (0-2) Smear Tech's Comments PT INR VBG pH 7.47 H VBG pCO2 43 VBG pO2 128 VBG HCO3 32 H VBG O2 Saturation 99.0 VBG Base Excess 7.8 Sodium 137 Potassium 4.3 Chloride 100 Carbon Dioxide 24 Anion Gap 17 BUN 29 H Creatinine 3.38 H Estim Creat Clear Calc 17.6 Estimated GFR 18 POC Glucose 330 H Random Glucose 54 L* Lactic Acid Calcium 8.4 D Phosphorus 2.8 Magnesium 2.0 Total Bilirubin 1.1 H Direct Bilirubin AST 38 H ALT 20 Alkaline Phosphatase 106 Troponin I High Sens C-Reactive Protein B-Natriuretic Peptide Total Protein 6.5 Albumin 2.7 L Lipase Procalcitonin 1.53 Urine Color Urine Appearance Urine pH Ur Specific [place] Urine Protein Urine Glucose (UA) Urine Ketones Urine Blood Urine Nitrite Ur Leukocyte Esterase Urine RBC Urine WBC Ur Squamous Epith Cells Urine Bacteria Hyaline Casts Respiratory Panel Dorsey Adenovirus (Rapid PCR) B.pert (TEM-PCR) B.parapertussis DNA PCR C. pneumoniae DNA (PCR) Coronavirus OC43 (PCR) Coronavirus HKU1 (PCR) Coronavirus 229E (PCR) Coronavirus NL63 (PCR) Human Metapneumovir PCR Influenza A (RT-PCR) Influenza Type A (PCR) Influenza B (RT-PCR) Influenza Type B (PCR) M. pneumoniae (PCR) Parainfluenza 1 (PCR) Parainfluenza 2 (PCR) Parainfluenza 3 (PCR) Parainfluenza 4 (PCR) RSV (PCR) RSV RNA Qual (PCR) Entero/Rhino (PCR) SARS-CoV-2 RNA (RT-PCR) Blood Type O Positive Antibody Screen NEGATIVE 03/14/24 03/14/24 03/14/24 13:18 15:53 17:45 WBC RBC Hgb Hct MCV MCH MCHC RDW Plt Count MPV Immature Gran % (Auto) Neut % (Auto) Lymph % (Auto) Larue % (Auto) Eos % (Auto) Baso % (Auto) Lymph # (Auto) Larue # (Auto) Eos # (Auto) Baso # (Auto) Abs Immat Gran (auto) Absolute Neuts (auto) Absolute Nucleated RBC Nucleated RBC % (auto) Neutrophils % (Manual) Band Neutrophils % Lymphocytes % (Manual) Monocytes % (Manual) Abs Neuts (Manual) Lymphocytes # (Manual) Monocytes # (Manual) Toxic Vacuolation Platelet Estimate Plt Morphology Comment RBC Morphology Hypochromasia Macrocytosis Ovalocytes [place] Cells Acanthocytes (Spur) Schistocytes Smear Tech's Comments PT INR VBG pH VBG pCO2 VBG pO2 VBG HCO3 VBG O2 Saturation VBG Base Excess Sodium Potassium Chloride Carbon Dioxide Anion Gap BUN Creatinine Estim Creat Clear Calc Estimated GFR POC Glucose 260 H 174 H 158 H Random Glucose Lactic Acid Calcium Phosphorus Magnesium Total Bilirubin Direct Bilirubin AST ALT Alkaline Phosphatase Troponin I High Sens C-Reactive Protein B-Natriuretic Peptide Total Protein Albumin Lipase Procalcitonin Urine Color Urine Appearance Urine pH Ur Specific [place] Urine Protein Urine Glucose (UA) Urine Ketones Urine Blood Urine Nitrite Ur Leukocyte Esterase Urine RBC Urine WBC Ur Squamous Epith Cells Urine Bacteria Hyaline Casts Respiratory Panel Dorsey Adenovirus (Rapid PCR) B.pert (TEM-PCR) B.parapertussis DNA PCR C. pneumoniae DNA (PCR) Coronavirus OC43 (PCR) Coronavirus HKU1 (PCR) Coronavirus 229E (PCR) Coronavirus NL63 (PCR) Human Metapneumovir PCR Influenza A (RT-PCR) Influenza Type A (PCR) Influenza B (RT-PCR) Influenza Type B (PCR) M. pneumoniae (PCR) Parainfluenza 1 (PCR) Parainfluenza 2 (PCR) Parainfluenza 3 (PCR) Parainfluenza 4 (PCR) RSV (PCR) RSV RNA Qual (PCR) Entero/Rhino (PCR) SARS-CoV-2 RNA (RT-PCR) Blood Type Antibody Screen 03/14/24 03/14/24 03/14/24 19:55 22:00 23:59 WBC RBC Hgb Hct MCV MCH MCHC RDW Plt Count MPV Immature Gran % (Auto) Neut % (Auto) Lymph % (Auto) Larue % (Auto) Eos % (Auto) Baso % (Auto) Lymph # (Auto) Larue # (Auto) Eos # (Auto) Baso # (Auto) Abs Immat Gran (auto) Absolute Neuts (auto) Absolute Nucleated RBC Nucleated RBC % (auto) Neutrophils % (Manual) Band Neutrophils % Lymphocytes % (Manual) Monocytes % (Manual) Abs Neuts (Manual) Lymphocytes # (Manual) Monocytes # (Manual) Toxic Vacuolation Platelet Estimate Plt Morphology Comment RBC Morphology Hypochromasia Macrocytosis Ovalocytes [place] Cells Acanthocytes (Spur) Schistocytes Smear Tech's Comments PT INR VBG pH 7.44 H VBG pCO2 43 VBG pO2 64 VBG HCO3 29 H VBG O2 Saturation 94.0 VBG Base Excess 5.1 Sodium Potassium Chloride Carbon Dioxide Anion Gap BUN Creatinine Estim Creat Clear Calc Estimated GFR POC Glucose 158 H 134 H Random Glucose Lactic Acid Calcium Phosphorus Magnesium Total Bilirubin Direct Bilirubin AST ALT Alkaline Phosphatase Troponin I High Sens C-Reactive Protein B-Natriuretic Peptide Total Protein Albumin Lipase Procalcitonin Urine Color Urine Appearance Urine pH Ur Specific [place] Urine Protein Urine Glucose (UA) Urine Ketones Urine Blood Urine Nitrite Ur Leukocyte Esterase Urine RBC Urine WBC Ur Squamous Epith Cells Urine Bacteria Hyaline Casts Respiratory Panel Dorsey Adenovirus (Rapid PCR) B.pert (TEM-PCR) B.parapertussis DNA PCR C. pneumoniae DNA (PCR) Coronavirus OC43 (PCR) Coronavirus HKU1 (PCR) Coronavirus 229E (PCR) Coronavirus NL63 (PCR) Human Metapneumovir PCR Influenza A (RT-PCR) Influenza Type A (PCR) Influenza B (RT-PCR) Influenza Type B (PCR) M. pneumoniae (PCR) Parainfluenza 1 (PCR) Parainfluenza 2 (PCR) Parainfluenza 3 (PCR) Parainfluenza 4 (PCR) RSV (PCR) RSV RNA Qual (PCR) Entero/Rhino (PCR) SARS-CoV-2 RNA (RT-PCR) Blood Type Antibody Screen 03/15/24 03/15/24 03/15/24 03:53 05:06 05:10 WBC 15.3 H RBC 2.88 L D Hgb 9.5 L D Hct 29.1 L D MCV 101.0 H MCH 33.0 MCHC 32.6 RDW 18.1 H Plt Count 93 L MPV 9.7 Immature Gran % (Auto) Cancelled Neut % (Auto) Cancelled Lymph % (Auto) Cancelled Larue % (Auto) Cancelled Eos % (Auto) Cancelled Baso % (Auto) Cancelled Lymph # (Auto) Cancelled Larue # (Auto) Cancelled Eos # (Auto) Cancelled Baso # (Auto) Cancelled Abs Immat Gran (auto) Cancelled Absolute Neuts (auto) Cancelled Absolute Nucleated RBC 0.000 Nucleated RBC % (auto) 0.0 Neutrophils % (Manual) 68 Band Neutrophils % 27 H Lymphocytes % (Manual) 4 L Monocytes % (Manual) 1 L Abs Neuts (Manual) 14.5 H Lymphocytes # (Manual) 0.6 L Monocytes # (Manual) 0.2 Toxic Vacuolation Platelet Estimate SLIGHTLY DECREASED Plt Morphology Comment NORMAL RBC Morphology NOTED Hypochromasia 1+ (5-14) Macrocytosis 1+ (5-14) Ovalocytes 1+ (5-14) Hollywood Cells Acanthocytes (Spur) 1+ (0-2) Schistocytes 1+ (0-2) Smear Tech's Comments PT INR VBG pH 7.48 H VBG pCO2 39 VBG pO2 45 VBG HCO3 29 H VBG O2 Saturation 82.0 VBG Base Excess 5.8 Sodium 136 Potassium 3.9 Chloride 97 Carbon Dioxide 26 Anion Gap 17 BUN 34 H Creatinine 4.03 H* Estim Creat Clear Calc 12.3 Estimated GFR 15 POC Glucose 108 Random Glucose 120 H Lactic Acid Calcium 8.8 Phosphorus 3.0 Magnesium 1.8 Total Bilirubin Direct Bilirubin AST ALT Alkaline Phosphatase Troponin I High Sens C-Reactive Protein B-Natriuretic Peptide Total Protein Albumin 3.1 L Lipase Procalcitonin Urine Color Urine Appearance Urine pH Ur Specific [place] Urine Protein Urine Glucose (UA) Urine Ketones Urine Blood Urine Nitrite Ur Leukocyte Esterase Urine RBC Urine WBC Ur Squamous Epith Cells Urine Bacteria Hyaline Casts Respiratory Panel Dorsey Adenovirus (Rapid PCR) B.pert (TEM-PCR) B.parapertussis DNA PCR C. pneumoniae DNA (PCR) Coronavirus OC43 (PCR) Coronavirus HKU1 (PCR) Coronavirus 229E (PCR) Coronavirus NL63 (PCR) Human Metapneumovir PCR Influenza A (RT-PCR) Influenza Type A (PCR) Influenza B (RT-PCR) Influenza Type B (PCR) M. pneumoniae (PCR) Parainfluenza 1 (PCR) Parainfluenza 2 (PCR) Parainfluenza 3 (PCR) Parainfluenza 4 (PCR) RSV (PCR) RSV RNA Qual (PCR) Entero/Rhino (PCR) SARS-CoV-2 RNA (RT-PCR) Blood Type Antibody Screen Progress Note: A&P Assessment and plan (1) Multifocal pneumonia: Status: Acute (2) Acute hypoxic respiratory failure: Status: Acute (3) ESRD needing dialysis: Status: Acute Plan Patient 69 Y M with hypertension, diabetes mellitus, CAD c/b HF, paroxysmal atrial fibrillation on apixaban, ESRD on //, presenting from facility w/ dyspnea, found to be hypoxic; in emergency department, patient persistently hypoxic, intubated; admitted ICU for c/v volume overload and/or pneumonia N: intubated, sedated w/ propofol gtt, wean as tolerated CV: hypotension, norepinephrine gtt, wean as tolerated; prolonged QTc, judicious use of QTc prolonging and bradycardic medications R: acute hypoxic respiratory failure, likely d/t pulmonary edema and/or pneumonia; intubated, wean as tolerated GI: NPO; to start tube feeds : ESRD; appreciate nephrology recommendations H: acute on chronic anemia, unclear etiology; thromocytopenia; paroxysmal atrial fibrillation, to hold home apixaban, chemical DVT prophylaxis ID: c/f multifocal pneumonia, empiric vanc/zosyn E: diabetes mellitus c/b hypoglycemia; to monitor closely P: no acute issues Quality Stroke Does the patient have a stroke diagnosis?: No VTE Prior VTE?: No VTE Risk Level:: Medical - moderate - high VTE Device Contraindication: N/A - Device Ordered VTE Drug Contraindication: Treatment Not Tolerated
[2024-03-15 08:08] LABS: Glucose, Whole Blood 104 mg/dL (60-115)
[2024-03-15] MEDS: Chlorhexidine Gluc Oral Rinse 15 ML MOUTHWASH BUCCAL ×3 (08:13→20:05)
[2024-03-15] MEDS: Albumin Human 25 % 50 ML 100 ML IV (08:14)
--- NOTE | 2024-03-15 10:32 | MHC.CLN ---
PT IS INTUBATED AND SEDATED PT TO START TF RECOMMEND NEPRO AT MAX GOAL RATE 35ML/HR TO PROVIDE 1512KCALS (1634KCALS WITH SEDATION; 31KCALS/KG), 68G PROTEIN (1.2G/KG), 610ML FREE WATER FROM FORMULA MONITOR TOLERANCE AND LYTES SEE ALSO FULL CLINICAL NUTRITION ASSESSMENT
[2024-03-15 11:45] LABS: Glucose, Whole Blood 105 mg/dL (60-115)
[2024-03-15] MEDS: propofoL 1,000 MG/100 ML VIAL 13.86 MG IVCONT ×2 (13:34→20:05)
--- NOTE | 2024-03-15 14:02 | PM.CNNEP ---
History of Present Illness Reason for Consult Consult date: 03/15/24 Chief Complaint Chief complaint: Acute hypoxic respiratory failure History of Present Illness Narrative: RTANE ESRD TTS Pateint from [facility] admit with hypoxic Resp fauilure PT seen and examined Full consult dictated HD today and seen on HD CAse d/w ICU doc in detail Will follow gian w team [facility] Past Medical History Medical History ESRD on dialysis Toxic metabolic encephalopathy Bacteremia due to Staphylococcus Gallstones Anemia HFrEF (heart failure with reduced ejection fraction) ESRD (end stage renal disease) Community acquired pneumonia Pneumonia Acute respiratory failure with hypoxia Anemia CKD (chronic kidney disease) ESRD (end stage renal disease) on dialysis Type 2 diabetes mellitus with unspecified complications Essential hypertension Chronic kidney disease, unspecified Chronic heart failure with preserved ejection fraction PAF (paroxysmal atrial fibrillation) Atherosclerotic cardiovascular disease Family History Family History Father Esophageal cancer Mother Diabetes Hypertension Surgical History Surgical History History of colon resection History of cardiac catheterization (~07/18/20) Social History Social History Household Members: Unknown / Unable to assess Housing: Unknown / Unable to assess Housing Other:: elderly housing Unable to assess alcohol history related to: Unknown Alcohol intake: never Patient Tobacco Use Status: Never used Tobacco Second Hand Smoke Exposure: No Advance Directives Date on File: 09/21/21 service: No Current occupational status: unemployed Meds Allergies Allergy/AdvReac Type Severity Reaction Status Date / Time No Known Allergies Allergy Verified 03/14/24 08:59 Active Medications: Current Medications Chlorhexidine Gluconate (Chlorhexidine Gluc Oral Rinse 15 Ml Mouthwash) 15 ml BUCCAL TID TRINH Last Admin: 03/15/24 13:25 Dose: 15 ml Fentanyl (Fentanyl Citrate/Pf 100 Mcg/2 Ml Vial) 25 mcg IVPUSH Q2H PRN; Protocol PRN Reason: Pain, Moderate(Pain Scale 4-6) Glucose (Glucose Gel 15 Gm Gel..Gram.) 15 gm PO Q15M PRN; Protocol PRN Reason: per Hypoglycemia Standing Ord. Dextrose (D10) 250 mls @ 750 mls/hr IV Q15M PRN PRN Reason: per Hypoglycemia Standing Ord. Last Infusion: 03/14/24 12:51 Dose: Infused Propofol (Diprivan) 1,000 mg in 100 mls @ 0 mls/hr IVCONT .Q0M TRINH; Protocol Last Admin: 03/15/24 13:34 Dose: 30 mcg/kg/min, 13.86 mls/hr Piperacillin Sod/Tazobactam (Sod 4.5 gm/ Sodium Chloride) 100 mls @ 200 mls/hr IV Q12H TRINH Last Infusion: 03/15/24 13:24 Dose: Infused Norepinephrine Bitartrate (Levophed) 8 mg in 250 mls @ 0 mls/hr IVCONT .Q0M TRINH; Protocol Last Titration: 03/15/24 12:43 Dose: 0.03 mcg/kg/min, 4.33 mls/hr Vancomycin HCl 500 mg/ Sodium (Chloride) 110 mls @ 110 mls/hr IV Q24H TRINH Insulin Human Lispro (Insulin Lispro 100 Unit/Ml 3 Ml Vial) 0 unit SUBCUT Q6H [facility]; Protocol Last Admin: 03/15/24 11:53 Dose: Not Given Naloxone HCl (Naloxone Hcl 0.4 Mg/Ml Vial) 0.2 mg IVPUSH Q2M PRN PRN Reason: Excessive sedation or RR < 8 Pharmacy Consult (Consult Rx Vancomycin Dosing) 1 each MISCELLANE DAILY PRN PRN Reason: Consult order Home Medications ?Medication ?Instructions ?Recorded ?Confirmed ?Last Taken ?Type amiodarone 200 mg tablet 1 tab PO DAILY 02/20/22 03/14/24 08/25/22 History bumetanide 1 mg tablet 1 tab PO BID 02/20/22 03/14/24 08/25/22 History carvedilol 3.125 mg tablet 1 tab PO BID 02/20/22 03/14/24 08/25/22 History cholecalciferol (vitamin D3) 50 1 tab PO DAILY 02/20/22 03/14/24 08/25/22 History mcg (2,000 unit) tablet insulin glargine 100 unit/mL (3 4 unit subcut BEDTIME 02/20/22 03/14/24 08/25/22 History mL) subcutaneous pen (Lantus Solostar U-100 Insulin) fluoxetine 20 mg capsule 1 cap PO BID 05/01/22 03/14/24 08/25/22 History acetaminophen 325 mg tablet 650 mg PO BID PRN Back Pain 03/14/24 03/14/24 Unknown History amino ac-protein hydro-whey 1 ea PO BID 03/14/24 03/14/24 Unknown History protein 10 gram-100 kcal/30 mL oral liquid (ProSource) aspirin 81 mg chewable tablet 81 mg PO DAILY 03/14/24 03/14/24 Unknown History atropine sulfate (PF) 1 % eye 1 drp ophthalmic-Left BID 03/14/24 03/14/24 Unknown History drops in a dropperette brimonidine 0.2 % eye drops 1 drp ophthalmic-Left TID 03/14/24 03/14/24 Unknown History dorzolamide-timolol (PF) 2 %-0.5 % 1 drp ophthalmic-Left BID 03/14/24 03/14/24 Unknown History eye drops in a dropperette (Cosopt (PF)) emollient 1 appl topical SUMOWEFR 03/14/24 03/14/24 Unknown History ergocalciferol (vitamin D2) 1,250 1,250 mcg PO Q30D 03/14/24 03/14/24 Unknown History mcg (50,000 unit) capsule (Vitamin D2) insulin lispro 100 unit/mL 1 sliding scale dose subcut DAILY 03/14/24 03/14/24 Unknown History subcutaneous pen (Humalog KwikPen (U-100) Insulin) latanoprost 0.005 % eye drops 1 drp ophthalmic-Left BEDTIME 03/14/24 03/14/24 Unknown History midodrine 5 mg tablet 5 mg PO TUTHSA 03/14/24 03/14/24 Unknown History multivitamin 1 tab PO DAILY 03/14/24 03/14/24 Unknown History ondansetron HCl 4 mg tablet 4 mg PO Q6H PRN Nausea 03/14/24 03/14/24 Unknown History peg [id number] 1 1 drp ophthalmic-Left BID Dry Eyes 03/14/24 03/14/24 Unknown History %-0.2 %-0.2 % eye drops (Artificial Tears ([id number])) trazodone 50 mg tablet 25 mg PO BEDTIME 03/14/24 03/14/24 Unknown History triamcinolone acetonide 0.1 % 1 appl topical BID 03/14/24 03/14/24 Unknown History topical cream valsartan 40 mg tablet 40 mg PO SUMOWEFR 03/14/24 03/14/24 Unknown History Physical Exam Vital Signs: Last Vital Signs Temp 98.1 F 03/15/24 13:54 Pulse 56 03/15/24 13:54 Resp 19 03/15/24 13:54 BP 119/55 L 03/15/24 13:54 Pulse Ox 100 03/15/24 13:54 O2 Del Method Mechanical Ventilation 03/15/24 13:54 FiO2 35 03/15/24 13:54 Oxygen Flow Rate 10 03/14/24 08:28 BMI result Body Mass Index 21.6 Results Lab Results 03/15/24 05:10 03/15/24 05:10 Lab results: Chemistry 03/14/24 03/14/24 03/15/24 09:59 12:37 05:10 Sodium 139 137 136 Potassium 4.0 4.3 3.9 Carbon Dioxide 24 26 BUN 29 H 29 H 34 H Creatinine 3.45 H 3.38 H 4.03 H* Calcium 9.0 8.4 D 8.8 Phosphorus 2.8 3.0 Hematology 03/14/24 03/14/24 03/15/24 08:51 12:37 05:10 WBC 13.2 H 6.5 15.3 H Hgb 11.3 L 12.2 L 9.5 L D Plt Count 130 L 111 L 93 L Urinalysis 03/14/24 10:43 Urine Color Dark Yellow Urine Appearance Turbid Urine pH 5.5 Ur Specific Shock 1.020 Urine Protein 300 (3+) H Urine Glucose (UA) Negative Urine Ketones Trace Urine Blood Large (3+) H Urine Nitrite Negative Ur Leukocyte Esterase Large (3+) H Urine RBC 11-20 H Urine WBC >50 H Ur Squamous Epith Cells 6-10 Hyaline Casts 6-10 Procedures Date of Service Date of Service: 03/15/24
[2024-03-15 15:01] LABS: Glucose, Whole Blood 92 mg/dL (60-115)
--- NOTE | 2024-03-15 15:23 | MHC.CM.PN ---
Pt currently intubated in ICU and unable to participate in CM assessment: Information obtained from pt's HCP/sister Alysia and from RN at [facility] where pt is a LTC resident. Per SNF RN: At baseline, pt is alert and oriented, able to make needs known, does not have an activated HCP, requires extensive physical assist for ADL's, is w/c bound but can stand and pivot, requires physical assist for mech. soft meals d/t poor vision and attends HD on , , [facility] on campus. He is a LTC bed hold. Per conversation w/pt's sister Alysia, she is interested in having pt transfer to another LTC center as she has concerns about his care. She states that this center must be in [place]. Discussed pt's current condition with Alysia - CM will need to discuss moving SNF's w/pt once he is medically stable as he does not have an activated HCP and can make own decisions. No referrals to other sites have been made at this time. Pt will need BLS transport. HCP and [facility] on file and verified w/[facility]. CM to follow and discuss d/c w/pt when appropriate. Referred back to [facility] in the interim
[2024-03-15 18:14] LABS: Glucose, Whole Blood 80 mg/dL (60-115)
[2024-03-15] MEDS: Norepinephrine Bitartrate/D5W 8 MG/250 ML PLAST..BAG 4.33 MG IVCONT (19:26)
[2024-03-15 20:05] LABS: Glucose, Whole Blood 102 mg/dL (60-115)
[2024-03-15 23:55] LABS: Glucose, Whole Blood 129 mg/dL (60-115)
[2024-03-16] VITALS (32 sets, daily range): BP systolic 93–137; BP diastolic 49–71; PULSE 52–72; RESP 16–20; TEMP 35–36.9; O2SAT 89–100; BMI 20.1
[2024-03-16] MEDS: Piperacillin Sodium/Tazobactam 4.5 GM in 0.9 % Sodium Chloride 100 ML IV ×2 (00:13→13:57)
[2024-03-16] MEDS: propofoL 1,000 MG/100 ML VIAL 13.86 MG IVCONT (02:29)
[2024-03-16 05:04] LABS: VBG Base Excess 7.8 mmol/L; VBG HCO3 30 mmol/L (22-26); VBG pCO2 35 mmHg; VBG pH 7.54 (7.32-7.43); VBG pO2 36 mmHg
[2024-03-16 05:06] LABS: Venous Blood Gas Refer to POC result
[2024-03-16 05:22] LABS: Basophils Percent Auto 0.2 % (0-2); Eosinophils Absolute Auto 0.1 X10*3/uL (0.0-0.4); Eosinophils Percent Auto 0.7 % (0-4); Hematocrit 29.5 % (42.0-52.0); Hemoglobin 9.9 g/dl (14.0-18.0); Imm Gran Abs Auto 0.04 X10*3/uL (0.00-0.03); Imm Gran Pct Auto 0.3 % (0.0-0.4); Lymphocytes Absolute Auto 0.6 X10*3/uL (1.2-4.9); Lymphocytes Percent Auto 4.9 % (20-40); MANUAL DIFF FLAG SCAN; Mean Corpuscular HGB Conc 33.6 g/dl (31.0-36.0); Mean Corpuscular Hemoglobin 33.4 pg (27.0-33.0); Mean Corpuscular Volume 99.7 fL (80.0-98.0); Mean Platelet Volume 9.4 fL (9.4-12.4); Monocytes Absolute Auto 0.4 X10*3/uL (0.1-1.2); Monocytes Percent Auto 2.9 % (2-11); Neutrophils Absolute Auto 11.6 x10*3/uL (2.0-8.3); Platelet Count 105 X10*3/uL (160-400); Red Blood Count 2.96 X10*6/uL (4.60-5.80); Red Cell Distribution Width 17.9 % (11.0-16.0); SCAN SMEAR FLAG 1; White Blood Count 12.8 X10*3/uL (4.8-10.8)
[2024-03-16 05:34] LABS: Glucose, Whole Blood 173 mg/dL (60-115)
[2024-03-16 05:50] LABS: SLIDE REVIEW VERIFIED
[2024-03-16 05:50] LABS: Albumin Level 2.9 g/dL (3.5-5.0); Anion Gap 15 (12-20); Blood Urea Nitrogen 27 mg/dL (9-16); Calcium 9.2 mg/dL (8.4-10.2); Carbon Dioxide 28 mmol/L (22-29); Chloride 97 mmol/L (96-108); Creatinine Clr Calc Pharmacy 14.9; Estimated Glomerular Filt Rate 20; Glucose Random 186 mg/dL (60-115); Magnesium 1.8 mg/dL (1.6-2.6); Phosphorus 1.1 mg/dL (2.7-4.5); Sodium 137 mmol/L (135-145)
[2024-03-16] MEDS: Potassium Chloride Packet 20 MEQ PACKET 40 MEQ PO (05:57)
[2024-03-16] MEDS: Potassium Phosphate/NS 15 MMOL/250 ML PLAST..BAG 62.5 MMOL IV ×2 (05:58→10:32)
[2024-03-16] MEDS: Albumin Human 25 % 100 ML IV ×2 (06:06→07:54)
[2024-03-16] MEDS: propofoL 1,000 MG/100 ML VIAL 9.24 MG IVCONT (06:12)
--- NOTE | 2024-03-16 07:00 | ECG_ITS ---
Test Reason : qtc check Blood Pressure : / mmHG Vent. Rate : 053 BPM Atrial Rate : 053 BPM P-R Int : 210 ms QRS Dur : 144 ms QT Int : 572 ms P-R-T Axes : 073 -52 148 degrees QTc Int : 536 ms Sinus bradycardia with 1st degree A-V block Left axis deviation Left bundle branch block Prolonged QT Abnormal ECG When compared with ECG of 15-MAR-2024 08:11, Nonspecific T wave abnormality now evident in Inferior leads QT has lengthened Referred By: Park Walter Electronically Signed By:ISAIAH PANDEY
[2024-03-16] MEDS: Chlorhexidine Gluc Oral Rinse 15 ML MOUTHWASH BUCCAL ×3 (07:54→20:21)
--- NOTE | 2024-03-16 08:19 | CONS_ITS ---
DATE OF SERVICE: 03/15/2024 HISTORY OF PRESENT ILLNESS: I was asked to see the patient to provide dialysis support in a patient with end-stage renal disease, admitted to the hospital with hypoxic respiratory failure. In summary, patient is a 69-year-old gentleman, gets his dialysis at the [facility] on a Tuesday, , Tuesday schedule, well known to me and my partners at . The patient presents with marked shortness of breath, required intubation in the emergency room. I am seeing him now in the ICU where he is believed to have a combination of pneumonia and pulmonary edema causing his hypoxic respiratory failure. His blood pressure is soft and he is on a low dose of pressors. Information obtained from electronic medical record. PAST MEDICAL HISTORY: As mentioned, includes end-stage renal disease, on Tuesday, , Tuesday schedule; history of anemia, supported with EPO as an outpatient; heart failure with reduced EF, type 2 diabetes, hypertension, paroxysmal atrial fibrillation, and coronary artery disease are all listed. MEDICATIONS: His medications on admission are noted in the admitting notes. ALLERGIES: HE HAS NO KNOWN DRUG ALLERGIES. REVIEW OF SYSTEMS: Unobtainable. FAMILY HISTORY: Noncontributory. PHYSICAL EXAMINATION: VITAL SIGNS: He is on a ventilator. He is on low dose of pressors. Blood pressure of 128/60 with a heart rate in the 70s. He is afebrile. HEENT: Mucous membranes are moist. LUNGS: Revealed rhonchi bilaterally. CARDIAC: Regular rate and rhythm. ABDOMEN: Soft. EXTREMITIES: Shows 1+ edema. LABORATORY DATA: Show hemoglobin 11.3, hematocrit 35, white blood cell count 13.2 on admission. Today's hemoglobin 9.5, hematocrit 29, white blood cell count 15.3. Sodium 139, potassium 4, chloride 99, bicarb 27. IMPRESSION: End-stage renal disease. Patient admitted with hypoxic respiratory failure due to pneumonia and component of pulmonary edema. 1. End-stage renal disease. We will dialyze him today. Pull fluid as tolerated to try and optimize his respiratory status. 2. Pneumonia. He is on antibiotics per the Critical Care team. 3. Hypotension. He is requiring a little bit of pressors. Will be cautious about fluid removal with dialysis. 4. Anemia. We will continue to monitor his hemoglobin and see about restarting him on EPO. RECOMMENDATIONS: At this time include dialysis today as blood pressure tolerates. Continue antibiotics as noted. Adjust medications for ESRD patient. We will follow the patient with the team. MD RICHARD Gill/LUTHER / [phone]
--- NOTE | 2024-03-16 10:08 | MHC.CLN ---
F/U PT IS INTUBATED AND SEDATED PT RECEIVING NEPRO AT MAX GOAL RATE 35ML/HR TO PROVIDE 1512KCALS (1634KCALS WITH SEDATION; 31KCALS/KG), 68G PROTEIN (1.2G/KG), 610ML FREE WATER FROM FORMULA CONTINUE TO MONITOR TOLERANCE AND LYTES
[2024-03-16 10:53] LABS: MRSA Nasal PCR POSITIVE (Negative); SA Nasal PCR POSITIVE (Negative)
[2024-03-16 11:12] LABS: Glucose, Whole Blood 182 mg/dL (60-115)
[2024-03-16] MEDS: Insulin Lispro 100 UNIT/ML 3 ML VIAL SUBCUT (11:22)
--- NOTE | 2024-03-16 12:13 | PM.CCPN ---
Subjective Subjective Date of Service: 03/16/24 Interval History: Remains on ventilator support this morning however vent requirements are much lesser On propofol for sedation Critical Care Time (minutes): 45 Physical Exam Vital Signs: Vital Signs: Last Vital Signs Temp 97.8 F 03/16/24 07:59 Pulse 63 03/16/24 11:00 Resp 16 03/16/24 11:00 BP 119/61 03/16/24 11:00 Pulse Ox 89 L 03/16/24 11:00 O2 Del Method Mechanical Ventil ation 03/16/24 11:00 FiO2 30 03/16/24 11:21 Oxygen Flow Rate 10 03/14/24 08:28 BMI result Body Mass Index 20.1 General: Not in acute distress, ill appearing Nutritional Appearance: Poorly nourished and under weight Eyes: appearance normal, both eyes and all related structures; Alignment and Position: alignment normal and position normal Neck: No lymphadenopathy, no thyromegaly Resp: bilateral air entry equal, occasional added sounds present Cardio: Regular rate, regular rhythm; Heart sounds: S1 normal heart sound present and S2 normal heart sound present GI: soft, nontender, no guarding, no hepatosplenomegaly : bladder normal to inspection, bladder normal to palpation, no renal angle tenderness Skin: no rashes or lesions noted and elasticity normal Neuro: Sedated, no focal deficits moves all extremities Objective Data Labs 03/16/24 04:53 03/16/24 04:54 Labs: Laboratory Results - last 24 hr 03/15/24 03/15/24 03/15/24 14:12 14:58 18:10 WBC RBC Hgb Hct MCV MCH MCHC RDW Plt Count MPV Immature Gran % (Auto) Neut % (Auto) Lymph % (Auto) [place] % (Auto) Eos % (Auto) Baso % (Auto) Lymph # (Auto) [place] # (Auto) Eos # (Auto) Baso # (Auto) Abs Immat Gran (auto) Absolute Neuts (auto) Absolute Nucleated RBC Nucleated RBC % (auto) Smear Tech's Comments VBG pH VBG pCO2 VBG pO2 VBG HCO3 VBG O2 Saturation VBG Base Excess Sodium Potassium Chloride Carbon Dioxide Anion Gap BUN Creatinine Estim Creat Clear Calc Estimated GFR POC Glucose 92 80 Random Glucose Calcium Phosphorus Magnesium Albumin Nasal Screen MRSA (PCR) Nasal S. aureus Screen Nasal MRSA/S.aureus Interp Random Vancomycin 22.0 H 03/15/24 03/15/24 03/16/24 20:02 23:49 04:51 WBC RBC Hgb Hct MCV MCH MCHC RDW Plt Count MPV Immature Gran % (Auto) Neut % (Auto) Lymph % (Auto) [place] % (Auto) Eos % (Auto) Baso % (Auto) Lymph # (Auto) [place] # (Auto) Eos # (Auto) Baso # (Auto) Abs Immat Gran (auto) Absolute Neuts (auto) Absolute Nucleated RBC Nucleated RBC % (auto) Smear Tech's Comments VBG pH 7.54 H VBG pCO2 35 VBG pO2 36 VBG HCO3 30 H VBG O2 Saturation 68.0 VBG Base Excess 7.8 Sodium Potassium Chloride Carbon Dioxide Anion Gap BUN Creatinine Estim Creat Clear Calc Estimated GFR POC Glucose 102 129 H Random Glucose Calcium Phosphorus Magnesium Albumin Nasal Screen MRSA (PCR) Nasal S. aureus Screen Nasal MRSA/S.aureus Interp Random Vancomycin 03/16/24 03/16/24 03/16/24 04:53 04:54 05:29 WBC 12.8 H RBC 2.96 L Hgb 9.9 L Hct 29.5 L MCV 99.7 H MCH 33.4 H MCHC 33.6 RDW 17.9 H Plt Count 105 L MPV 9.4 Immature Gran % (Auto) 0.3 Neut % (Auto) 91.0 H Lymph % (Auto) 4.9 L [place] % (Auto) 2.9 Eos % (Auto) 0.7 Baso % (Auto) 0.2 Lymph # (Auto) 0.6 L [place] # (Auto) 0.4 Eos # (Auto) 0.1 Baso # (Auto) 0.0 Abs Immat Gran (auto) 0.04 H Absolute Neuts (auto) 11.6 H Absolute Nucleated RBC 0.000 Nucleated RBC % (auto) 0.0 Smear Tech's Comments VERIFIED VBG pH VBG pCO2 VBG pO2 VBG HCO3 VBG O2 Saturation VBG Base Excess Sodium 137 Potassium 3.0 L D Chloride 97 Carbon Dioxide 28 Anion Gap 15 BUN 27 H Creatinine 3.10 H Estim Creat Clear Calc 14.9 Estimated GFR 20 POC Glucose 173 H Random Glucose 186 H Calcium 9.2 Phosphorus 1.1 L Magnesium 1.8 Albumin 2.9 L Nasal Screen MRSA (PCR) Nasal S. aureus Screen Nasal MRSA/S.aureus Interp Random Vancomycin 03/16/24 03/16/24 09:28 11:09 WBC RBC Hgb Hct MCV MCH MCHC RDW Plt Count MPV Immature Gran % (Auto) Neut % (Auto) Lymph % (Auto) [place] % (Auto) Eos % (Auto) Baso % (Auto) Lymph # (Auto) [place] # (Auto) Eos # (Auto) Baso # (Auto) Abs Immat Gran (auto) Absolute Neuts (auto) Absolute Nucleated RBC Nucleated RBC % (auto) Smear Tech's Comments VBG pH VBG pCO2 VBG pO2 VBG HCO3 VBG O2 Saturation VBG Base Excess Sodium Potassium Chloride Carbon Dioxide Anion Gap BUN Creatinine Estim Creat Clear Calc Estimated GFR POC Glucose 182 H Random Glucose Calcium Phosphorus Magnesium Albumin Nasal Screen MRSA (PCR) POSITIVE A Nasal S. aureus Screen POSITIVE A Nasal MRSA/S.aureus Interp SEE NOTE Random Vancomycin Microbiology Microbiology Results: Microbiology 03/14/24 09:10 Blood - Venous Blood Culture - Preliminary No growth after 48 hours. 03/14/24 08:51 Blood - Venous Blood Culture - Preliminary No growth after 48 hours. 03/14/24 Unknown Urine Catheterized - [place] Catheter Urine Culture - Final Progress Note: A&P Assessment and plan (1) Multifocal pneumonia: Status: Acute (2) Hypothermia: Status: Acute (3) Acute hypoxic respiratory failure: Status: Acute (4) ESRD needing dialysis: Status: Acute (5) End stage renal disease: Status: Acute (6) Shock: Status: Acute Plan 69-year-old gentleman with past medical history of hypertension, diabetes mellitus, CAD c/b HF, paroxysmal atrial fibrillation on apixaban, ESRD on admitted to the hospital with altered mental status, hypoxia, bilateral pneumonia intubation and ventilator support Neuro: Acute encephalopathy possibly due to metabolic encephalopathy On propofol for sedation, we will taper off propofol for weaning Close neurological status monitoring in the ICU every hour Cardiac: Paroxysmal Atrial fibrillation: Currently in sinus rhythm, rate controlled We will restart home apixaban for anticoagulation Respiratory: Acute hypoxemic respiratory failure due to bilateral unspecified pneumonia Currently on ventilator support On PRVC mode FiO2[30%], PEEP 5, TV 400, RR 20 Peak pressures and plateau pressures are under the curve Ventilator management bundle with head end elevation, aspiration precaution, chlorhexidine mouthwash, daily awakening trials, daily spontaneous breathing trials We will place the patient on pressor support, if he does well we will get the weaning trials and extubate the patient if possible GI: On Nepro for skilled feeds Chronic malnutrition: We will need up titration of proteins once oral diet is allowed Renal: End-stage renal disease: On hemodialysis Tuesday as per Nephrology Baseline creatinine normal, creatinine today is Avoid nephrotoxic medications Heme: Chronic anemia, closely monitor H&H, transfuse for hemoglobin less than 7 grams/deciliter Endocrine: Blood sugars under control Sliding scale insulin as needed Infectious disease: Pancultures negative so far On empiric vanc and Zosyn We will get MRSA nares and discontinue vanc Musculoskeletal: Decubitus ulcer prevention protocol Lines: Right femoral TLC- which we will take out today Prophylaxis: Apixaban, pantoprazole Critical care time spent is about 45 minutes mainly on managing ventilator support, changing ventilator settings wean from ventilator, titrating sedation at this time is excluding any procedural time. Quality Stroke Does the patient have a stroke diagnosis?: No VTE Prior VTE?: No VTE Risk Level:: Medical - moderate - high VTE Device Contraindication: N/A - Device Ordered VTE Drug Contraindication: Treatment Not Tolerated
--- NOTE | 2024-03-16 12:31 | MHC.CM.PN ---
Pt continues on ventilatory support in ICU: plans for the day are to reduce sedation and attempt vent wean. Pt is a LTC resident of [facility] where he receives HD on and . Pt is A&O at baseline. CM to discuss return to facility when he is participatory in conversation. Pt's sister and non activated HCP is requesting pt transfer to another facility, however, this will ultimately depend on pt's wants and request. CM to follow.
--- NOTE | 2024-03-16 14:41 | PC.RT ---
Pt trialed on PSV. Started with psv 8, rr noted > 35 and vt < 200ml post 4 mins. Psv inc to [id number] and [id number]. Pt noted continued tachypneic, with rr > 35, vt 180 - 200ml and VE < 4.0. Returned to PD, nurse aware.
[2024-03-16 18:00] LABS: Glucose, Whole Blood 139 mg/dL (60-115)
[2024-03-16] MEDS: Apixaban 2.5 MG TABLET PO (20:21)
[2024-03-17] VITALS (33 sets, daily range): BP systolic 86–140; BP diastolic 47–69; PULSE 56–69; RESP 16–23; TEMP 34.5–36.9; O2SAT 92–100; BMI 20.1
[2024-03-17 00:01] LABS: Glucose, Whole Blood 179 mg/dL (60-115)
[2024-03-17] MEDS: Piperacillin Sodium/Tazobactam 4.5 GM in 0.9 % Sodium Chloride 100 ML IV ×2 (02:04→12:26)
--- NOTE | 2024-03-17 02:39 | HO.SKINPHOTO ---
Location: Coccyx/buttock Category: Stage I
[2024-03-17 05:00] LABS: VBG Base Excess 4.9 mmol/L; VBG HCO3 29 mmol/L (22-26); VBG pCO2 42 mmHg; VBG pH 7.44 (7.32-7.43); VBG pO2 47 mmHg
[2024-03-17 05:04] LABS: MANUAL DIFF FLAG NO
[2024-03-17 05:06] LABS: Basophils Percent Auto 0.1 % (0-2); Eosinophils Absolute Auto 0.1 X10*3/uL (0.0-0.4); Eosinophils Percent Auto 0.9 % (0-4); Hematocrit 25.6 % (42.0-52.0); Hemoglobin 8.5 g/dl (14.0-18.0); Imm Gran Abs Auto 0.07 X10*3/uL (0.00-0.03); Imm Gran Pct Auto 0.6 % (0.0-0.4); Lymphocytes Absolute Auto 0.6 X10*3/uL (1.2-4.9); Mean Corpuscular HGB Conc 33.2 g/dl (31.0-36.0); Mean Corpuscular Hemoglobin 33.5 pg (27.0-33.0); Mean Corpuscular Volume 100.8 fL (80.0-98.0); Mean Platelet Volume 9.6 fL (9.4-12.4); Monocytes Absolute Auto 0.4 X10*3/uL (0.1-1.2); Monocytes Percent Auto 3.4 % (2-11); Neutrophils Absolute Auto 10.4 x10*3/uL (2.0-8.3); Red Blood Count 2.54 X10*6/uL (4.60-5.80); White Blood Count 11.5 X10*3/uL (4.8-10.8)
[2024-03-17 05:06] LABS: Venous Blood Gas Refer to POC result
[2024-03-17 05:11] LABS: Platelet Count 95 X10*3/uL (160-400)
[2024-03-17 05:26] LABS: Albumin Level 3.3 g/dL (3.5-5.0); Anion Gap 17 (12-20); Blood Urea Nitrogen 40 mg/dL (9-16); Calcium 9.2 mg/dL (8.4-10.2); Carbon Dioxide 26 mmol/L (22-29); Chloride 101 mmol/L (96-108); Creatinine Clr Calc Pharmacy 12.3; Estimated Glomerular Filt Rate 16; Glucose Random 158 mg/dL (60-115); Magnesium 1.9 mg/dL (1.6-2.6); Phosphorus 2.6 mg/dL (2.7-4.5); Sodium 140 mmol/L (135-145)
[2024-03-17] MEDS: Chlorhexidine Gluc Oral Rinse 15 ML MOUTHWASH BUCCAL ×3 (08:10→20:30)
[2024-03-17 11:48] LABS: Glucose, Whole Blood 130 mg/dL (60-115)
--- NOTE | 2024-03-17 12:18 | P.PNCC_ITS ---
Subjective Subjective Date of Service: 03/17/24 Interval History: Continues to be on ventilator support this morning More awake and alert, following some commands Undergoing hemodialysis this morning Critical Care Time (minutes): 38 Physical Exam 2 Vital Signs: Vital Signs: Last Vital Signs Temp 97.2 F 03/17/24 11:56 Pulse 58 03/17/24 11:56 Resp 19 03/17/24 11:56 BP 116/58 L 03/17/24 11:56 Pulse Ox 100 03/17/24 11:56 O2 Del Method Mechanical Ventil ation 03/17/24 11:56 FiO2 30 03/17/24 12:02 Oxygen Flow Rate 10 03/14/24 08:28 BMI result Body Mass Index 20.1 General: Patient in acute distress, ill appearing Nutritional Appearance: Poorly nourished and under weight Eyes: appearance normal, both eyes and all related structures; Alignment and Position: alignment normal and position normal Neck: No lymphadenopathy, no thyromegaly Resp: bilateral air entry equal, occasional added sounds present Cardio: Regular rate, regular rhythm; Heart sounds: S1 normal heart sound present and S2 normal heart sound present GI: soft, nontender, no guarding, no hepatosplenomegaly : bladder normal to inspection, bladder normal to palpation, no renal angle tenderness Skin: no rashes or lesions noted and elasticity normal Neuro: No focal deficits, moves all extremities Objective Data Labs 03/17/24 04:45 03/17/24 04:45 Labs: Laboratory Results - last 24 hr 03/16/24 03/16/24 03/17/24 17:57 23:53 04:45 WBC 11.5 H RBC 2.54 L Hgb 8.5 L Hct 25.6 L MCV 100.8 H MCH 33.5 H MCHC 33.2 RDW 18.0 H Plt Count 95 L MPV 9.6 Immature Gran % (Auto) 0.6 H Neut % (Auto) 90.0 H Lymph % (Auto) 5.0 L [place] % (Auto) 3.4 Eos % (Auto) 0.9 Baso % (Auto) 0.1 Lymph # (Auto) 0.6 L [place] # (Auto) 0.4 Eos # (Auto) 0.1 Baso # (Auto) 0.0 Abs Immat Gran (auto) 0.07 H Absolute Neuts (auto) 10.4 H Absolute Nucleated RBC 0.000 Nucleated RBC % (auto) 0.0 VBG pH VBG pCO2 VBG pO2 VBG HCO3 VBG O2 Saturation VBG Base Excess Sodium 140 Potassium 4.0 D Chloride 101 Carbon Dioxide 26 Anion Gap 17 BUN 40 H Creatinine 3.74 H Estim Creat Clear Calc 12.3 Estimated GFR 16 POC Glucose 139 H 179 H Random Glucose 158 H Calcium 9.2 Phosphorus 2.6 L Magnesium 1.9 Albumin 3.3 L 03/17/24 03/17/24 04:48 11:41 WBC RBC Hgb Hct MCV MCH MCHC RDW Plt Count MPV Immature Gran % (Auto) Neut % (Auto) Lymph % (Auto) [place] % (Auto) Eos % (Auto) Baso % (Auto) Lymph # (Auto) [place] # (Auto) Eos # (Auto) Baso # (Auto) Abs Immat Gran (auto) Absolute Neuts (auto) Absolute Nucleated RBC Nucleated RBC % (auto) VBG pH 7.44 H VBG pCO2 42 VBG pO2 47 VBG HCO3 29 H VBG O2 Saturation 80.0 VBG Base Excess 4.9 Sodium Potassium Chloride Carbon Dioxide Anion Gap BUN Creatinine Estim Creat Clear Calc Estimated GFR POC Glucose 130 H Random Glucose Calcium Phosphorus Magnesium Albumin Microbiology Microbiology Results: Microbiology 03/14/24 09:10 Blood - Venous Blood Culture - Preliminary No growth after 48 hours. 03/14/24 08:51 Blood - Venous Blood Culture - Preliminary No growth after 48 hours. 03/14/24 Unknown Urine Catheterized - [place] Catheter Urine Culture - Final Progress Note: A&P Assessment and plan (1) Multifocal pneumonia: Status: Acute (2) Hypothermia: Status: Acute (3) Acute hypoxic respiratory failure: Status: Acute (4) ESRD needing dialysis: Status: Acute (5) End stage renal disease: Status: Acute (6) Encephalopathy acute: Status: Acute (7) Acute respiratory failure with hypoxia: Status: Acute Plan 69-year-old gentleman with past medical history of hypertension, diabetes mellitus, CAD c/b HF, paroxysmal atrial fibrillation on apixaban, ESRD on // admitted to the hospital with altered mental status, hypoxia, bilateral pneumonia intubation and ventilator support Neuro: Acute encephalopathy possibly due to metabolic encephalopathy Off propofol since 03/16/2024, if needed we will add Precedex for anxiolysis Close neurological status monitoring in the ICU every hour Cardiac: Paroxysmal Atrial fibrillation: Currently in sinus rhythm, rate controlled On apixaban for anticoagulation On amiodarone at home for rhythm control, currently he is bradycardic and in sinus rhythm so we will with hold Respiratory: Acute hypoxemic respiratory failure due to bilateral unspecified pneumonia Currently on ventilator support On PRVC mode FiO2[30%], PEEP 5, TV 400, RR 20 Peak pressures and plateau pressures are under the curve Ventilator management bundle with head end elevation, aspiration precaution, chlorhexidine mouthwash, daily awakening trials, daily spontaneous breathing trials Place the patient on pressor support this morning poor minute ventilation when he falls asleep intermittently. Episodes of tachypnea as to high 30s GI: On Nepro for skilled feeds Chronic malnutrition: We will need up titration of proteins once oral diet is allowed Renal: End-stage renal disease: On hemodialysis Tuesday as per Nephrology Undergoing hemodialysis this morning with 3 L ultrafiltration Avoid nephrotoxic medications Heme: Chronic anemia, closely monitor H&H, transfuse for hemoglobin less than 7 grams/deciliter Endocrine: Blood sugars under control Sliding scale insulin as needed Infectious disease: Pancultures negative so far On empiric vanc and Zosyn MRSA nares positive, continue vancomycin Musculoskeletal: Decubitus ulcer prevention protocol Lines: Right femoral TLC- which we will take out today Prophylaxis: Apixaban, pantoprazole Patient has multiple organ failures including acute respiratory failure, acute encephalopathy, end-stage renal disease, critical care time spent is about 38 minutes on ventilator management, changing ventilator settings, weaning trials and close neurological status monitoring. Quality Stroke Does the patient have a stroke diagnosis?: No VTE Prior VTE?: No VTE Risk Level:: Medical - moderate - high VTE Device Contraindication: N/A - Device Ordered VTE Drug Contraindication: Treatment Not Tolerated
[2024-03-17] MEDS: Apixaban 2.5 MG TABLET PO ×2 (12:25→20:30)
[2024-03-17 13:44] LABS: Vancomycin Random 14.8 mcg/mL (15-20)
[2024-03-17 18:25] LABS: Glucose, Whole Blood 163 mg/dL (60-115)
[2024-03-17 20:41] LABS: CDiff Gene PCR POSITIVE (Negative)
[2024-03-17 20:51] LABS: CDIFF Internal ctrl Dots and bkg OK (V); CDiff Toxin Positive (Negative)
[2024-03-17] MEDS: Fidaxomicin 200 MG TABLET PO (20:59)
[2024-03-17 23:52] LABS: Glucose, Whole Blood 129 mg/dL (60-115)
[2024-03-18] VITALS (32 sets, daily range): BP systolic 112–141; BP diastolic 49–70; PULSE 55–65; RESP 16–28; TEMP 34.9–36.8; O2SAT 94–100; BMI 18.6
[2024-03-18] MEDS: 0.9 % Sodium Chloride Flush 3 ML SYRINGE IVFLUSH ×3 (00:44→21:23)
[2024-03-18] MEDS: Piperacillin Sodium/Tazobactam 4.5 GM in 0.9 % Sodium Chloride 100 ML IV ×2 (00:56→12:22)
[2024-03-18] MEDS: fentaNYL citrate/PF 100 MCG/2 ML VIAL 25 MCG IVPUSH ×2 (02:31→06:13)
[2024-03-18 04:39] LABS: MANUAL DIFF FLAG NO
[2024-03-18 04:40] LABS: VBG Base Excess 2.4 mmol/L; VBG HCO3 26 mmol/L (22-26); VBG pCO2 38 mmHg; VBG pH 7.44 (7.32-7.43); VBG pO2 61 mmHg
[2024-03-18 04:40] LABS: Basophils Percent Auto 0.3 % (0-2); Eosinophils Absolute Auto 0.2 X10*3/uL (0.0-0.4); Eosinophils Percent Auto 1.6 % (0-4); Hemoglobin 9.1 g/dl (14.0-18.0); Imm Gran Abs Auto 0.06 X10*3/uL (0.00-0.03); Imm Gran Pct Auto 0.6 % (0.0-0.4); Lymphocytes Absolute Auto 0.7 X10*3/uL (1.2-4.9); Lymphocytes Percent Auto 6.6 % (20-40); Mean Corpuscular HGB Conc 32.5 g/dl (31.0-36.0); Mean Corpuscular Hemoglobin 33.2 pg (27.0-33.0); Mean Corpuscular Volume 102.2 fL (80.0-98.0); Mean Platelet Volume 9.6 fL (9.4-12.4); Monocytes Absolute Auto 0.5 X10*3/uL (0.1-1.2); Monocytes Percent Auto 5.1 % (2-11); Neutrophils Absolute Auto 8.9 x10*3/uL (2.0-8.3); Neutrophils Percent Auto 85.8 % (45-73); Platelet Count 93 X10*3/uL (160-400); Red Blood Count 2.74 X10*6/uL (4.60-5.80); Red Cell Distribution Width 17.8 % (11.0-16.0); White Blood Count 10.4 X10*3/uL (4.8-10.8)
--- NOTE | 2024-03-18 04:41 | HO.SKINPHOTO ---
Location: Left posterior ankle Category: abrasion Location: Right posterior ankle Category: DTI
[2024-03-18 04:46] LABS: Venous Blood Gas Refer to POC result
[2024-03-18 04:56] LABS: Albumin Level 3.3 g/dL (3.5-5.0); Anion Gap 16 (12-20); Blood Urea Nitrogen 27 mg/dL (9-16); Calcium 9.3 mg/dL (8.4-10.2); Carbon Dioxide 23 mmol/L (22-29); Chloride 101 mmol/L (96-108); Creatinine Clr Calc Pharmacy 16.3; Estimated Glomerular Filt Rate 22; Glucose Random 181 mg/dL (60-115); Phosphorus 1.6 mg/dL (2.7-4.5); Potassium 3.6 mmol/L (3.3-5.1); Sodium 136 mmol/L (135-145)
[2024-03-18] MEDS: Potassium Phosphate/NS 15 MMOL/250 ML PLAST..BAG 62.5 MMOL IV ×2 (05:39→10:10)
[2024-03-18 05:45] LABS: Glucose, Whole Blood 139 mg/dL (60-115)
[2024-03-18] MEDS: Fidaxomicin 200 MG TABLET PO ×2 (08:21→21:23)
[2024-03-18] MEDS: Apixaban 2.5 MG TABLET PO ×2 (08:21→21:23)
[2024-03-18] MEDS: Chlorhexidine Gluc Oral Rinse 15 ML MOUTHWASH BUCCAL ×3 (08:21→21:22)
[2024-03-18 11:29] LABS: Glucose, Whole Blood 154 mg/dL (60-115)
--- NOTE | 2024-03-18 12:17 | PM.CCPN ---
Subjective Subjective Date of Service: 03/18/24 Interval History: Continues to be on ventilator support this morning Failed weaning trials yesterday due to poor minute ventilation Remained on pressure support for almost the whole day yesterday, placed on controlled ventilator mode during the night Off all sedation drips Critical Care Time (minutes): 40 Physical Exam Vital Signs: Vital Signs: Last Vital Signs Temp 97.2 F 03/18/24 12:00 Pulse 64 03/18/24 12:00 Resp 21 H 03/18/24 12:00 BP 112/53 L 03/18/24 12:00 Pulse Ox 97 03/18/24 12:00 O2 Del Method Mechanical Ventil ation 03/18/24 12:00 FiO2 25 03/18/24 12:00 Oxygen Flow Rate 10 03/14/24 08:28 BMI result Body Mass Index 18.6 General: ill appearing and tired appearing Nutritional Appearance: Malnourished and underweight Eyes: appearance normal, both eyes and all related structures; Alignment and Position: alignment normal and position normal Neck: No lymphadenopathy, no thyromegaly Resp: bilateral air entry equal, bilateral breath sounds heard, very occasional crackles Cardio: Regular rate, regular rhythm; Heart sounds: S1 normal heart sound present and S2 normal heart sound present GI: soft, nontender, no guarding, no hepatosplenomegaly : bladder normal to inspection, bladder normal to palpation, no renal angle tenderness Skin: no rashes or lesions noted and elasticity normal Neuro: Looks around, moves all extremities Objective Data Labs 03/18/24 04:32 03/18/24 04:32 Labs: Laboratory Results - last 24 hr 03/17/24 03/17/24 03/17/24 13:18 18:06 18:30 WBC RBC Hgb Hct MCV MCH MCHC RDW Plt Count MPV Immature Gran % (Auto) Neut % (Auto) Lymph % (Auto) [place] % (Auto) Eos % (Auto) Baso % (Auto) Lymph # (Auto) [place] # (Auto) Eos # (Auto) Baso # (Auto) Abs Immat Gran (auto) Absolute Neuts (auto) Absolute Nucleated RBC Nucleated RBC % (auto) VBG pH VBG pCO2 VBG pO2 VBG HCO3 VBG O2 Saturation VBG Base Excess Sodium Potassium Chloride Carbon Dioxide Anion Gap BUN Creatinine Estim Creat Clear Calc Estimated GFR POC Glucose 163 H Random Glucose Calcium Phosphorus Magnesium Albumin Random Vancomycin 14.8 L C. difficile Tox B Gene POSITIVE A* C. difficile Toxin A&B Positive A* C. difficile Interpret SEE NOTE 03/17/24 03/18/24 03/18/24 23:47 04:29 04:32 WBC 10.4 RBC 2.74 L Hgb 9.1 L Hct 28.0 L MCV 102.2 H MCH 33.2 H MCHC 32.5 RDW 17.8 H Plt Count 93 L MPV 9.6 Immature Gran % (Auto) 0.6 H Neut % (Auto) 85.8 H Lymph % (Auto) 6.6 L [place] % (Auto) 5.1 Eos % (Auto) 1.6 Baso % (Auto) 0.3 Lymph # (Auto) 0.7 L [place] # (Auto) 0.5 Eos # (Auto) 0.2 Baso # (Auto) 0.0 Abs Immat Gran (auto) 0.06 H Absolute Neuts (auto) 8.9 H Absolute Nucleated RBC 0.000 Nucleated RBC % (auto) 0.0 VBG pH 7.44 H VBG pCO2 38 VBG pO2 61 VBG HCO3 26 VBG O2 Saturation 90.0 VBG Base Excess 2.4 Sodium 136 Potassium 3.6 Chloride 101 Carbon Dioxide 23 Anion Gap 16 BUN 27 H Creatinine 2.82 H Estim Creat Clear Calc 16.3 Estimated GFR 22 POC Glucose 129 H Random Glucose 181 H Calcium 9.3 Phosphorus 1.6 L Magnesium 2.0 Albumin 3.3 L Random Vancomycin C. difficile Tox B Gene C. difficile Toxin A&B C. difficile Interpret 03/18/24 03/18/24 05:40 11:27 WBC RBC Hgb Hct MCV MCH MCHC RDW Plt Count MPV Immature Gran % (Auto) Neut % (Auto) Lymph % (Auto) [place] % (Auto) Eos % (Auto) Baso % (Auto) Lymph # (Auto) [place] # (Auto) Eos # (Auto) Baso # (Auto) Abs Immat Gran (auto) Absolute Neuts (auto) Absolute Nucleated RBC Nucleated RBC % (auto) VBG pH VBG pCO2 VBG pO2 VBG HCO3 VBG O2 Saturation VBG Base Excess Sodium Potassium Chloride Carbon Dioxide Anion Gap BUN Creatinine Estim Creat Clear Calc Estimated GFR POC Glucose 139 H 154 H Random Glucose Calcium Phosphorus Magnesium Albumin Random Vancomycin C. difficile Tox B Gene C. difficile Toxin A&B C. difficile Interpret Microbiology Microbiology Results: Microbiology 03/14/24 09:10 Blood - Venous Blood Culture - Preliminary No growth after 48 hours. 03/14/24 08:51 Blood - Venous Blood Culture - Preliminary No growth after 48 hours. 03/14/24 Unknown Urine Catheterized - [place] Catheter Urine Culture - Final Progress Note: A&P Assessment and plan (1) Multifocal pneumonia: Status: Acute (2) Acute hypoxic respiratory failure: Status: Acute (3) ESRD needing dialysis: Status: Acute (4) End stage renal disease: Status: Acute (5) Hyponatremia: Status: Acute (6) Hypothermia: Status: Acute (7) Shock: Status: Acute Plan 69-year-old gentleman with past medical history of hypertension, diabetes mellitus, CAD c/b HF, paroxysmal atrial fibrillation on apixaban, ESRD on / admitted to the hospital with altered mental status, hypoxia, bilateral pneumonia needing intubation and ventilator support Neuro: Acute encephalopathy possibly due to metabolic encephalopathy Off propofol since 03/16/2024, if needed we will add Precedex for anxiolysis Close neurological status monitoring in the ICU every hour Cardiac: Paroxysmal Atrial fibrillation: Currently in sinus rhythm, rate controlled On apixaban for anticoagulation On amiodarone at home for rhythm control, heart rate still on the lower side and in sinus rhythm so we will with hold Respiratory: Acute hypoxemic respiratory failure due to bilateral unspecified pneumonia Currently on ventilator support On PRVC mode FiO2 30%, PEEP 5, TV 380, RR 20, failed weaning trials yesterday due to very poor minute ventilation. She remained on pressor support during the day yesterday and was placed on a pressure control mode during the night. He is placed back on pressure support mode this morning there were periods of apnea which was assisted, following which his respiratory rates are in 20s with tidal volume in 200s Peak pressures and plateau pressures are under the curve Ventilator management bundle with head end elevation, aspiration precaution, chlorhexidine mouthwash, daily awakening trials, daily spontaneous breathing trials GI: On Nepro for tube feeds Chronic malnutrition: We will need up titration of proteins once oral diet is allowed Renal: End-stage renal disease: On hemodialysis Tuesday as per Nephrology Closely monitor I's and O's Avoid nephrotoxic medications Heme: Chronic anemia, closely monitor H&H, transfuse for hemoglobin less than 7 grams/deciliter Endocrine: Blood sugars under control Sliding scale insulin as needed Infectious disease: Pancultures negative so far On empiric vanc and Zosyn MRSA nares positive, continue vancomycin Musculoskeletal: Decubitus ulcer prevention protocol Lines: Peripheral Prophylaxis: Apixaban, pantoprazole Patient has multiple organ failures including acute respiratory failure, acute encephalopathy, end-stage renal disease, critical care time spent is about 40 minutes on ventilator management, changing ventilator settings, weaning trials and close neurological status monitoring. Quality Stroke Does the patient have a stroke diagnosis?: No VTE Prior VTE?: No VTE Risk Level:: Medical - moderate - high VTE Device Contraindication: N/A - Device Ordered VTE Drug Contraindication: Treatment Not Tolerated
[2024-03-18 18:00] LABS: Glucose, Whole Blood 166 mg/dL (60-115)
[2024-03-18 23:47] LABS: Glucose, Whole Blood 174 mg/dL (60-115)
[2024-03-19] VITALS (26 sets, daily range): BP systolic 120–144; BP diastolic 57–73; PULSE 62–90; RESP 20–29; TEMP 35.1–37.2; O2SAT 91–98; BMI 19.4
[2024-03-19] MEDS: Piperacillin Sodium/Tazobactam 4.5 GM in 0.9 % Sodium Chloride 100 ML IV (00:02)
[2024-03-19 05:15] LABS: VBG Base Excess 0.1 mmol/L; VBG HCO3 25 mmol/L (22-26); VBG pCO2 44 mmHg; VBG pH 7.36 (7.32-7.43); VBG pO2 44 mmHg
[2024-03-19 05:17] LABS: Venous Blood Gas Refer to POC result
[2024-03-19 05:32] LABS: MANUAL DIFF FLAG NO
[2024-03-19 05:33] LABS: Basophils Percent Auto 0.2 % (0-2); Eosinophils Absolute Auto 0.2 X10*3/uL (0.0-0.4); Eosinophils Percent Auto 2.2 % (0-4); Hematocrit 28.3 % (42.0-52.0); Hemoglobin 9.1 g/dl (14.0-18.0); Imm Gran Abs Auto 0.06 X10*3/uL (0.00-0.03); Imm Gran Pct Auto 0.6 % (0.0-0.4); Lymphocytes Absolute Auto 0.8 X10*3/uL (1.2-4.9); Lymphocytes Percent Auto 8.2 % (20-40); Mean Corpuscular HGB Conc 32.2 g/dl (31.0-36.0); Mean Corpuscular Hemoglobin 32.5 pg (27.0-33.0); Mean Corpuscular Volume 101.1 fL (80.0-98.0); Mean Platelet Volume 9.7 fL (9.4-12.4); Monocytes Absolute Auto 0.6 X10*3/uL (0.1-1.2); Monocytes Percent Auto 6.5 % (2-11); Neutrophils Absolute Auto 7.8 x10*3/uL (2.0-8.3); Neutrophils Percent Auto 82.3 % (45-73); Platelet Count 111 X10*3/uL (160-400); Red Cell Distribution Width 17.3 % (11.0-16.0); White Blood Count 9.5 X10*3/uL (4.8-10.8)
[2024-03-19 05:47] LABS: Albumin Level 3.2 g/dL (3.5-5.0); Anion Gap 18 (12-20); Blood Urea Nitrogen 39 mg/dL (9-16); Calcium 9.5 mg/dL (8.4-10.2); Carbon Dioxide 24 mmol/L (22-29); Chloride 101 mmol/L (96-108); Creatinine Clr Calc Pharmacy 11.5; Estimated Glomerular Filt Rate 16; Glucose Random 181 mg/dL (60-115); Magnesium 2.1 mg/dL (1.6-2.6); Phosphorus 4.2 mg/dL (2.7-4.5); Potassium 4.1 mmol/L (3.3-5.1); Sodium 139 mmol/L (135-145)
[2024-03-19] MEDS: 0.9 % Sodium Chloride Flush 3 ML SYRINGE IVFLUSH ×3 (08:00→20:05)
[2024-03-19] MEDS: Chlorhexidine Gluc Oral Rinse 15 ML MOUTHWASH BUCCAL (09:15)
[2024-03-19] MEDS: Apixaban 2.5 MG TABLET PO ×2 (09:15→20:05)
[2024-03-19] MEDS: Fidaxomicin 200 MG TABLET PO ×2 (09:15→20:05)
--- NOTE | 2024-03-19 09:20 | MHC.CLN ---
F/U PT REMAINS INTUBATED AND SEDATED DISCUSSED AT ROUNDS WITH PT RECEIVING NEPRO AT MAX GOAL RATE 35ML/HR TO PROVIDE 1512KCALS (1634KCALS WITH SEDATION; 31KCALS/KG), 68G PROTEIN (1.2G/KG), 610ML FREE WATER FROM FORMULA NOTED NEW WOUNDS DTI R ANKLE, STAGE 2 L BUTT-TF TO PROMOTE WOUND HEALING CONTINUE TO MONITOR TOLERANCE AND LYTES
--- NOTE | 2024-03-19 09:39 | PM.CCPN ---
Subjective Subjective Date of Service: 03/19/24 Interval History: 69-year-old gentleman with underlying history of diabetes mellitus, hypertension, end-stage renal disease on hemodialysis, AFib admitted on 03/14/2022 for with dyspnea and acute hypoxic respiratory failure requiring intubation and ventilatory support. Patient treated for community-acquired pneumonia and continued on his regular hemodialysis with improvement in his respiratory status, now tolerating pressure support trials. No events overnight. Critical Care Time (minutes): 60 Physical Exam Vital Signs: Vital Signs: Last Vital Signs Temp 98.7 F 03/19/24 08:00 Pulse 69 03/19/24 09:00 Resp 24 H 03/19/24 09:00 BP 139/69 03/19/24 09:00 Pulse Ox 94 03/19/24 09:00 O2 Del Method Mechanical Ventil ation 03/19/24 09:00 FiO2 25 03/19/24 09:00 Oxygen Flow Rate 10 03/14/24 08:28 BMI result Body Mass Index 19.4 Const: General: no acute distress, alert and awake Eyes: Sclerae: sclerae normal EOM: EOMs intact bilaterally Neck: Neck: Yes no lymphadenopathy, Yes trachea midline and Yes supple Resp: Effort & Inspection: tachypneic Auscultation: clear to auscultation bilaterally Cardio: Rate: regular rate Rhythm: regular rhythm Heart sounds: no gallops, no murmurs and no rubs GI: Palpation (GI): Soft to palpation and Other GI palpation findings present ( Nontender) Auscultation: normal bowel sounds Extrem: General: Yes no pedal edema, No clubbing and No cyanosis Objective Data Labs 03/19/24 05:05 03/19/24 05:05 Labs: Laboratory Results - last 24 hr 03/18/24 03/18/24 03/18/24 11:27 17:54 23:39 WBC RBC Hgb Hct MCV MCH MCHC RDW Plt Count MPV Immature Gran % (Auto) Neut % (Auto) Lymph % (Auto) [place] % (Auto) Eos % (Auto) Baso % (Auto) Lymph # (Auto) [place] # (Auto) Eos # (Auto) Baso # (Auto) Abs Immat Gran (auto) Absolute Neuts (auto) Absolute Nucleated RBC Nucleated RBC % (auto) VBG pH VBG pCO2 VBG pO2 VBG HCO3 VBG O2 Saturation VBG Base Excess Sodium Potassium Chloride Carbon Dioxide Anion Gap BUN Creatinine Estim Creat Clear Calc Estimated GFR POC Glucose 154 H 166 H 174 H Random Glucose Calcium Phosphorus Magnesium Albumin 03/19/24 05:05 WBC 9.5 RBC 2.80 L Hgb 9.1 L Hct 28.3 L MCV 101.1 H MCH 32.5 MCHC 32.2 RDW 17.3 H Plt Count 111 L MPV 9.7 Immature Gran % (Auto) 0.6 H Neut % (Auto) 82.3 H Lymph % (Auto) 8.2 L [place] % (Auto) 6.5 Eos % (Auto) 2.2 Baso % (Auto) 0.2 Lymph # (Auto) 0.8 L [place] # (Auto) 0.6 Eos # (Auto) 0.2 Baso # (Auto) 0.0 Abs Immat Gran (auto) 0.06 H Absolute Neuts (auto) 7.8 Absolute Nucleated RBC 0.000 Nucleated RBC % (auto) 0.0 VBG pH 7.36 VBG pCO2 44 VBG pO2 44 VBG HCO3 25 VBG O2 Saturation 73.0 VBG Base Excess 0.1 Sodium 139 Potassium 4.1 Chloride 101 Carbon Dioxide 24 Anion Gap 18 BUN 39 H Creatinine 3.71 H Estim Creat Clear Calc 11.5 Estimated GFR 16 POC Glucose Random Glucose 181 H Calcium 9.5 Phosphorus 4.2 Magnesium 2.1 Albumin 3.2 L Microbiology Microbiology Results: Microbiology 03/14/24 09:10 Blood - Venous Blood Culture - Preliminary No growth after 48 hours. 03/14/24 08:51 Blood - Venous Blood Culture - Preliminary No growth after 48 hours. 03/14/24 Unknown Urine Catheterized - [place] Catheter Urine Culture - Final Progress Note: A&P Assessment and plan (1) Acute hypoxic respiratory failure: Status: Acute (2) ESRD needing dialysis: Status: Acute (3) Chronic HFrEF (heart failure with reduced ejection fraction): Status: Acute (4) PAF (paroxysmal atrial fibrillation): Status: Acute Plan Assessment: 69-year-old gentleman with underlying CAD, congestive heart failure, paroxysmal AFib, diabetes mellitus with end-stage renal disease on hemodialysis admitted with acute hypoxic respiratory failure requiring intubation and ventilatory support, now improving slowly. Plan: Neuro: No acute issues. Cardiac: No acute issues. Underlying coronary artery disease, AFib, and congestive heart failure. Pulmonary: Acute respiratory failure with hypoxia requiring ventilatory support, likely secondary to pulmonary edema, improved. Now tolerating pressure support trials, continue to titrate off as tolerated. Renal: No acute issues. End-stage renal disease on hemodialysis. Nephrology service care appreciated. Endo: No acute issues. Underlying diabetes mellitus. GI: No acute issues. ID: No acute issues Heme/Onc: No acute issues. Psych: No acute issues. Miscellaneous: No acute issues. Prophylaxis: Heparin, ppi Diet: Tube feeds Critical care time spent: 60 minutes Quality Stroke Does the patient have a stroke diagnosis?: No VTE Prior VTE?: No VTE Risk Level:: Medical - moderate - high VTE Device Contraindication: N/A - Device Ordered VTE Drug Contraindication: Treatment Not Tolerated
[2024-03-19 11:21] LABS: Glucose, Whole Blood 165 mg/dL (60-115)
--- NOTE | 2024-03-19 13:19 | PM.PNNEP ---
Subjective Subjective Date of Service: 03/19/24 Interval history: Seen and examined, evebnts ntoed Physical Exam Vital Signs: Vital Signs: Last Vital Signs Temp 98.7 F 03/19/24 08:00 Pulse 77 03/19/24 12:00 Resp 24 H 03/19/24 12:00 BP 138/69 03/19/24 12:00 Pulse Ox 98 03/19/24 12:00 O2 Del Method Nasal Cannula 03/19/24 12:00 O2 Flow Rate 2 03/19/24 12:00 FiO2 25 03/19/24 10:42 Oxygen Flow Rate 10 03/14/24 08:28 BMI result Body Mass Index 19.4 Const: Other: intubated, sedated General: comfortable, no acute distress, alert and awake HEENT: Head: Yes normal to inspection, Yes normocephalic and Yes atraumatic Eyes: General: appearance normal, both eyes and all related structures Sclerae: sclerae normal EOM: EOMs intact bilaterally Neck: Neck: Yes normal visual inspection, Yes full ROM, Yes no lymphadenopathy, Yes trachea midline and Yes supple Chest: Chest palpation & inspection: normal inspection of the chest Resp: Other: some appreciable rhonchi; no appreciable rales, wheezing Effort & Inspection: normal respiratory effort and tachypneic Auscultation: clear to auscultation bilaterally Cardio: Rate: regular rate Rhythm: regular rhythm Heart sounds: no gallops, no murmurs and no rubs GI: Inspection: Yes normal to inspection, No Abdominal wall edema and No distended Palpation (GI): Soft to palpation, not firm, nontender, no guarding, not rigid and Other GI palpation findings present ( Nontender) Auscultation: normal bowel sounds : Male General Exam: Yes normal external exam Skin: General skin exam: no rashes or lesions noted Neuro: Other: unable to assess General: tone normal Extrem: General: Yes normal to inspection, Yes full ROM, Yes capillary refill normal, Yes no clubbing, cyanosis or edema, Yes no pedal edema, No clubbing and No cyanosis Psych: Other: unable to assess Objective Data Labs 03/19/24 05:05 03/19/24 05:05 Labs: Laboratory Results - last 24 hr 03/18/24 03/18/24 03/19/24 17:54 23:39 05:05 WBC 9.5 RBC 2.80 L Hgb 9.1 L Hct 28.3 L MCV 101.1 H MCH 32.5 MCHC 32.2 RDW 17.3 H Plt Count 111 L MPV 9.7 Immature Gran % (Auto) 0.6 H Neut % (Auto) 82.3 H Lymph % (Auto) 8.2 L [place] % (Auto) 6.5 Eos % (Auto) 2.2 Baso % (Auto) 0.2 Lymph # (Auto) 0.8 L [place] # (Auto) 0.6 Eos # (Auto) 0.2 Baso # (Auto) 0.0 Abs Immat Gran (auto) 0.06 H Absolute Neuts (auto) 7.8 Absolute Nucleated RBC 0.000 Nucleated RBC % (auto) 0.0 VBG pH 7.36 VBG pCO2 44 VBG pO2 44 VBG HCO3 25 VBG O2 Saturation 73.0 VBG Base Excess 0.1 Sodium 139 Potassium 4.1 Chloride 101 Carbon Dioxide 24 Anion Gap 18 BUN 39 H Creatinine 3.71 H Estim Creat Clear Calc 11.5 Estimated GFR 16 POC Glucose 166 H 174 H Random Glucose 181 H Calcium 9.5 Phosphorus 4.2 Magnesium 2.1 Albumin 3.2 L 03/19/24 11:17 WBC RBC Hgb Hct MCV MCH MCHC RDW Plt Count MPV Immature Gran % (Auto) Neut % (Auto) Lymph % (Auto) [place] % (Auto) Eos % (Auto) Baso % (Auto) Lymph # (Auto) [place] # (Auto) Eos # (Auto) Baso # (Auto) Abs Immat Gran (auto) Absolute Neuts (auto) Absolute Nucleated RBC Nucleated RBC % (auto) VBG pH VBG pCO2 VBG pO2 VBG HCO3 VBG O2 Saturation VBG Base Excess Sodium Potassium Chloride Carbon Dioxide Anion Gap BUN Creatinine Estim Creat Clear Calc Estimated GFR POC Glucose 165 H Random Glucose Calcium Phosphorus Magnesium Albumin Microbiology Microbiology Results: Microbiology 03/14/24 09:10 Blood - Venous Blood Culture - Final No growth after 5 days. 03/14/24 08:51 Blood - Venous Blood Culture - Final No growth after 5 days. 03/14/24 Unknown Urine Catheterized - [place] Catheter Urine Culture - Final Procedures Date of Service Date of Service: 03/19/24 Assessment & Plan Assessment and plan (1) Acute hypoxic respiratory failure: Status: Acute (2) ESRD needing dialysis: Status: Acute (3) Chronic HFrEF (heart failure with reduced ejection fraction): Status: Acute (4) PAF (paroxysmal atrial fibrillation): Status: Acute Plan 1. ERSRD: cnt HD TTS 2. 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 Progress Note: Quality Stroke Does the patient have a stroke diagnosis?: No
--- NOTE | 2024-03-19 14:27 | MHC.CM.PN ---
Pt extubated today and continues care in ICU: Pt is a [facility] resident [facility] dependent T, [facility], [facility]. CM to reassess pt on 03/20 to review d/c planning needs.
[2024-03-19 17:53] LABS: Glucose, Whole Blood 139 mg/dL (60-115)
[2024-03-19 23:56] LABS: Glucose, Whole Blood 124 mg/dL (60-115)
[2024-03-20] VITALS (17 sets, daily range): BP systolic 112–157; BP diastolic 64–87; PULSE 75–81; RESP 12–27; TEMP 36.4–37.6; O2SAT 92–99; BMI 19.8
[2024-03-20 05:04] LABS: VBG Base Excess -1.8 mmol/L; VBG HCO3 23 mmol/L (22-26); VBG pCO2 40 mmHg; VBG pH 7.36 (7.32-7.43); VBG pO2 47 mmHg
[2024-03-20 05:15] LABS: Basophils Percent Auto 0.2 % (0-2); Eosinophils Absolute Auto 0.1 X10*3/uL (0.0-0.4); Eosinophils Percent Auto 0.8 % (0-4); Hematocrit 27.3 % (42.0-52.0); Imm Gran Abs Auto 0.09 X10*3/uL (0.00-0.03); Imm Gran Pct Auto 0.7 % (0.0-0.4); Lymphocytes Absolute Auto 1.1 X10*3/uL (1.2-4.9); Lymphocytes Percent Auto 9.4 % (20-40); MANUAL DIFF FLAG SCAN; Mean Corpuscular Hemoglobin 33.2 pg (27.0-33.0); Mean Corpuscular Volume 100.7 fL (80.0-98.0); Mean Platelet Volume 9.4 fL (9.4-12.4); Monocytes Absolute Auto 0.8 X10*3/uL (0.1-1.2); Monocytes Percent Auto 6.8 % (2-11); Neutrophils Absolute Auto 9.9 x10*3/uL (2.0-8.3); Neutrophils Percent Auto 82.1 % (45-73); Platelet Count 118 X10*3/uL (160-400); Red Blood Count 2.71 X10*6/uL (4.60-5.80); Red Cell Distribution Width 17.3 % (11.0-16.0); SCAN SMEAR FLAG 1
[2024-03-20 05:24] LABS: Venous Blood Gas Refer to POC result
[2024-03-20 05:29] LABS: Albumin Level 3.4 g/dL (3.5-5.0); Anion Gap 21 (12-20); Blood Urea Nitrogen 50 mg/dL (9-16); Calcium 9.6 mg/dL (8.4-10.2); Carbon Dioxide 23 mmol/L (22-29); Chloride 102 mmol/L (96-108); Glucose Random 111 mg/dL (60-115); Magnesium 2.1 mg/dL (1.6-2.6); Phosphorus 4.6 mg/dL (2.7-4.5); Potassium 4.5 mmol/L (3.3-5.1); Sodium 141 mmol/L (135-145)
[2024-03-20 05:33] LABS: Creatinine Clr Calc Pharmacy 9.2; Estimated Glomerular Filt Rate 12
[2024-03-20 05:36] LABS: SLIDE REVIEW VERIFIED
[2024-03-20] MEDS: Albumin Human 25 % 100 ML IV ×2 (08:19→14:00)
[2024-03-20] MEDS: 0.9 % Sodium Chloride Flush 3 ML SYRINGE IVFLUSH ×3 (08:19→20:42)
[2024-03-20] MEDS: Apixaban 2.5 MG TABLET PO ×2 (08:19→20:42)
[2024-03-20] MEDS: Fidaxomicin 200 MG TABLET PO ×2 (08:19→20:42)
--- NOTE | 2024-03-20 10:17 | MHC.CLN ---
F/U PT EXTUBATED PT TO BE TRANSFERRED TO MEDICAL FLOOR DISCUSSED AT ROUNDS WITH MD DIET RX: [id number]-RECOMMEND ADDING 2GM NA LOW K LOW PHOS R/T ESRD ON HD WILL ADD ENSURE CLEAR TID TO INCREASE KCALS (SUPP IS RENAL FRIENDLY) SUPP TO PROVIDE 720KCALS, 24G PROTEIN MONITOR PO INTAKE AND ENCOURAGE SUPPLEMENT
--- NOTE | 2024-03-20 11:56 | P.CDIM_ITS ---
PROVIDER RESPONSE TEXT: To clarify, the appropriate diagnosis supported by the clinical indicators: Acute QUERY TEXT: PHYSICIAN'S DOCUMENTATION REQUEST Date of Query: 03/20/2024 08:00 AM EDT Patient Name: Liang Nunez Admit Date: 03/14/2024 Dear Saúl Trinidad MD, A review of the medical record indicates additional documentation may be needed. Please review below and update the documentation accordingly. Clinical Indicators: Per Critical Care Progress Note 03/19/24: pulmonary edema, improved Clarify which of the following accurately represents the acuity of the Pulmonary edema. Possible options might include: Acute Acute on chronic Compensated Chronic stable condition Remission Other (explain) Clinically unable to determine (explain) Thank you, Danielle Shook RN Use of terms such as suspected, likely, concern for, or probable (associated with a specific diagnosi s that is being evaluated, monitored, or treated as if it exists) are acceptable and can be coded in the inpatient se tting, when documented at the time of discharge. Please use your independent medical judgment in providing your response. THIS QUERY IS PART OF THE PERMANENT MEDICAL RECORD
--- NOTE | 2024-03-20 11:56 | PM.CCPN ---
Subjective Subjective Date of Service: 03/20/24 Interval History: 69-year-old gentleman with underlying history of diabetes mellitus, hypertension, end-stage renal disease on hemodialysis, AFib admitted on 03/14/2022 for with dyspnea and acute hypoxic respiratory failure requiring intubation and ventilatory support. Patient treated for community-acquired pneumonia and continued on his regular hemodialysis with improvement in his respiratory status, extubated uneventfully on 03/19/2024. No events overnight. Passed bedside swallow evaluation. Critical Care Time (minutes): 0 Physical Exam Vital Signs: Vital Signs: Last Vital Signs Temp 97.8 F 03/20/24 08:00 Pulse 75 03/20/24 11:00 Resp 20 03/20/24 11:00 BP 157/82 H 03/20/24 11:00 Pulse Ox 99 03/20/24 11:00 O2 Del Method Nasal Cannula 03/20/24 11:00 O2 Flow Rate 2 03/20/24 11:00 FiO2 25 03/19/24 10:42 Oxygen Flow Rate 10 03/14/24 08:28 BMI result Body Mass Index 19.8 Const: General: no acute distress and alert Nutritional Appearance: not obese Orientation/consciousness: Other orientation findings ( oriented) HEENT: Head: Yes atraumatic Eyes: General: appearance normal, both eyes and all related structures Sclerae: sclerae normal EOM: EOMs intact bilaterally Neck: Neck: Yes supple Lymphatic: no lymphadenopathy noted Resp: Effort & Inspection: normal respiratory effort and no use of accessory muscles Auscultation: clear to auscultation bilaterally Cardio: Rate: regular rate Rhythm: regular rhythm Heart sounds: no gallops, no murmurs and no rubs Skin: General skin exam: other ( warm) Extrem: General: No clubbing, No cyanosis and Yes edema (Trace bilateral) Objective Data Labs 03/20/24 04:58 03/20/24 04:58 Labs: Laboratory Results - last 24 hr 03/19/24 03/19/24 03/20/24 17:50 23:45 04:55 WBC RBC Hgb Hct MCV MCH MCHC RDW Plt Count MPV Immature Gran % (Auto) Neut % (Auto) Lymph % (Auto) [place] % (Auto) Eos % (Auto) Baso % (Auto) Lymph # (Auto) [place] # (Auto) Eos # (Auto) Baso # (Auto) Abs Immat Gran (auto) Absolute Neuts (auto) Absolute Nucleated RBC Nucleated RBC % (auto) Smear Tech's Comments VBG pH 7.36 VBG pCO2 40 VBG pO2 47 VBG HCO3 23 VBG O2 Saturation 74.0 VBG Base Excess -1.8 Sodium Potassium Chloride Carbon Dioxide Anion Gap BUN Creatinine Estim Creat Clear Calc Estimated GFR POC Glucose 139 H 124 H Random Glucose Calcium Phosphorus Magnesium Albumin 03/20/24 04:58 WBC 12.0 H RBC 2.71 L Hgb 9.0 L Hct 27.3 L MCV 100.7 H MCH 33.2 H MCHC 33.0 RDW 17.3 H Plt Count 118 L MPV 9.4 Immature Gran % (Auto) 0.7 H Neut % (Auto) 82.1 H Lymph % (Auto) 9.4 L [place] % (Auto) 6.8 Eos % (Auto) 0.8 Baso % (Auto) 0.2 Lymph # (Auto) 1.1 L [place] # (Auto) 0.8 Eos # (Auto) 0.1 Baso # (Auto) 0.0 Abs Immat Gran (auto) 0.09 H Absolute Neuts (auto) 9.9 H Absolute Nucleated RBC 0.000 Nucleated RBC % (auto) 0.0 Smear Tech's Comments VERIFIED VBG pH VBG pCO2 VBG pO2 VBG HCO3 VBG O2 Saturation VBG Base Excess Sodium 141 Potassium 4.5 Chloride 102 Carbon Dioxide 23 Anion Gap 21 H BUN 50 H Creatinine 4.91 H* Estim Creat Clear Calc 9.2 Estimated GFR 12 POC Glucose Random Glucose 111 Calcium 9.6 Phosphorus 4.6 H Magnesium 2.1 Albumin 3.4 L Microbiology Microbiology Results: Microbiology 03/14/24 09:10 Blood - Venous Blood Culture - Final No growth after 5 days. 03/14/24 08:51 Blood - Venous Blood Culture - Final No growth after 5 days. 03/14/24 Unknown Urine Catheterized - [place] Catheter Urine Culture - Final Progress Note: A&P Assessment and plan (1) PAF (paroxysmal atrial fibrillation): Status: Acute (2) Acute hypoxic respiratory failure: Status: Acute (3) ESRD needing dialysis: Status: Acute (4) C. difficile colitis: Status: Acute Plan Assessment: 69-year-old gentleman with underlying CAD, congestive heart failure, paroxysmal AFib, diabetes mellitus with end-stage renal disease on hemodialysis admitted with acute hypoxic respiratory failure requiring intubation and ventilatory support, now improving slowly. Plan: Neuro: No acute issues. Cardiac: No acute issues. Underlying coronary artery disease, AFib, and congestive heart failure. Pulmonary: Acute respiratory failure with hypoxia requiring ventilatory support, likely secondary to pulmonary edema, improved. Extubated on 03/19/2024. Renal: No acute issues. End-stage renal disease on hemodialysis. Nephrology service care appreciated. Endo: No acute issues. Underlying diabetes mellitus. GI: No acute issues. ID: Recurrent C diff, continue fidaxomicin. Heme/Onc: No acute issues. Psych: No acute issues. Miscellaneous: No acute issues. Prophylaxis: Heparin, ppi Diet: Diabetic Quality Stroke Does the patient have a stroke diagnosis?: No VTE Prior VTE?: No VTE Risk Level:: Medical - moderate - high VTE Device Contraindication: N/A - Device Ordered VTE Drug Contraindication: Treatment Not Tolerated
[2024-03-20 12:48] LABS: Glucose, Whole Blood 85 mg/dL (60-115)
--- NOTE | 2024-03-20 14:38 | MHC.SL.SWA ---
Speech Pathologist Impression: Risk of Aspiration Due to: Lethargy Poor PO Intake Hx of Recent Extubation Reduced Cognition Weak Cough Weak Voice Liquid Consistency and Strategies for Safe Swallow: Liquid Intake Recommendation: Thin Liquid Intake Strategies: No Straws Solid Food Consistency: Dietary Recommendations: Grnd/Mech Altered (NDD2) Oral Medication Intake: Crushed with Puree Please contact the pharmacy regarding appropriate crushable or liquid drug formulations that are available whenever modified delivery is recommended. Compensatory Strategies and Precautions to be Taken for Safe Swallow: Sitting Upright (90 deg) No Straw Small Bites and Sips Alternate Liquids/Solids Rate of Ingestion Change Supervision While Eating and Drinking for Safe Swallow: Total Assistance (1:1) Swallowing Recommended Treatments: Compens. Strategy Educat. Recommendation for Speech: Further Testing Needed Comment: Recommend DOWNGRADE to GROUND/MECH SOLIDS (NDD2) and THIN LIQUIDS. MEDS CRUSHED in PUREE. Pt required 1:1 FEEDS. Ensure Pt is upright and alert when providing PO. ESCALATOR SERVICE MECHANIC following for potential upgrade. Frequency/Duration: Daily Date Range for Service Req: Admission - Discharge Timeline to reassess: PRN Crop Or Grain Farmer Clinican/Clinical Fellow: No Supervisory Statement: I have reviewed and agree with the student/clinical fellow's documentation: N/A Speech Language Pathologist: Yan Trinidad M.A., CCC-ESCALATOR SERVICE MECHANIC
--- NOTE | 2024-03-20 15:18 | PM.EVENT ---
Event Note Date of Service: 03/20/24 Event Note: ICU transfer, discussed with ICU attending Patient admitted with pulmonary edema, Recurrent cdiff on fidaxomicin Time Spent With Patient Time: Total time managing care of this patient today ____ minutes.
[2024-03-20 16:27] LABS: Glucose, Whole Blood 102 mg/dL (60-115)
[2024-03-20 20:20] LABS: Glucose, Whole Blood 110 mg/dL (60-115)
[2024-03-21 00:20] LABS: Glucose, Whole Blood 86 mg/dL (60-115)
[2024-03-21 03:11] VITALS: BP 132/70; PULSE 79; RESP 16; TEMP 36.9; O2SAT 96
[2024-03-21 03:53] LABS: Glucose, Whole Blood 88 mg/dL (60-115)
[2024-03-21 06:09] LABS: Glucose, Whole Blood 79 mg/dL (60-115)
[2024-03-21 06:54] LABS: Venous Blood Gas Refer to POC result
[2024-03-21 06:57] LABS: VBG Base Excess -1.6 mmol/L; VBG HCO3 23 mmol/L (22-26); VBG pCO2 40 mmHg; VBG pH 7.36 (7.32-7.43); VBG pO2 83 mmHg
[2024-03-21 06:57] LABS: Basophils Percent Auto 0.4 % (0-2); Eosinophils Absolute Auto 0.1 X10*3/uL (0.0-0.4); Eosinophils Percent Auto 1.3 % (0-4); Hematocrit 27.5 % (42.0-52.0); Hemoglobin 9.1 g/dl (14.0-18.0); Imm Gran Abs Auto 0.06 X10*3/uL (0.00-0.03); Imm Gran Pct Auto 0.7 % (0.0-0.4); Lymphocytes Absolute Auto 1.4 X10*3/uL (1.2-4.9); Lymphocytes Percent Auto 17.6 % (20-40); MANUAL DIFF FLAG SCAN; Mean Corpuscular HGB Conc 33.1 g/dl (31.0-36.0); Mean Corpuscular Volume 99.6 fL (80.0-98.0); Mean Platelet Volume 9.1 fL (9.4-12.4); Monocytes Absolute Auto 0.7 X10*3/uL (0.1-1.2); Monocytes Percent Auto 8.4 % (2-11); Neutrophils Absolute Auto 5.9 x10*3/uL (2.0-8.3); Neutrophils Percent Auto 71.6 % (45-73); Platelet Count 143 X10*3/uL (160-400); Red Blood Count 2.76 X10*6/uL (4.60-5.80); Red Cell Distribution Width 17.1 % (11.0-16.0); SCAN SMEAR FLAG 1; White Blood Count 8.2 X10*3/uL (4.8-10.8)
[2024-03-21 07:00] VITALS: BP 110/58; PULSE 79; RESP 15; TEMP 36.6; O2SAT 95
[2024-03-21 07:22] LABS: Albumin Level 4.1 g/dL (3.5-5.0); Anion Gap 19 (12-20); Blood Urea Nitrogen 28 mg/dL (9-16); Calcium 10.1 mg/dL (8.4-10.2); Carbon Dioxide 22 mmol/L (22-29); Chloride 100 mmol/L (96-108); Creatinine Clr Calc Pharmacy 12.3; Estimated Glomerular Filt Rate 16; Glucose Random 90 mg/dL (60-115); Magnesium 2.1 mg/dL (1.6-2.6); Phosphorus 3.8 mg/dL (2.7-4.5); Potassium 3.8 mmol/L (3.3-5.1); Sodium 137 mmol/L (135-145)
[2024-03-21 07:42] LABS: SLIDE REVIEW VERIFIED
--- NOTE | 2024-03-21 07:54 | HO.PM.IMPN ---
Subjective Subjective Date of Service: 03/21/24 Review of Systems Follow up ICU transfer for pulmonary edema and recurrent C diff more awake and conversing Physical Exam Vital Signs: Vital Signs: Last Vital Signs Temp 98 F 03/21/24 07:00 Pulse 79 03/21/24 07:00 Resp 15 03/21/24 07:00 BP 110/58 L 03/21/24 07:00 Pulse Ox 95 03/21/24 07:00 O2 Del Method Nasal Cannula 03/21/24 07:00 O2 Flow Rate 2 03/21/24 07:00 FiO2 25 03/19/24 10:42 Oxygen Flow Rate 10 03/14/24 08:28 BMI result Body Mass Index 19.8 Appearing in no acute distress lung sounds are clear to auscultation heart regular rate rhythm, clear S1, S2 positive bowel sounds, abdomen is soft, nontender neuro patient is alert x3, no focal deficits Objective Data Active Medications Apixaban (Apixaban 2.5 Mg Tablet) 2.5 mg PO BID [facility] Last Admin: 03/20/24 20:42 Dose: 2.5 mg Documented By: GERSON Fidaxomicin (Fidaxomicin 200 Mg Tablet) 200 mg PO Q12H [facility] Last Admin: 03/20/24 20:42 Dose: 200 mg Documented By: GERSON Glucose (Glucose Gel 15 Gm Gel..Gram.) 15 gm PO Q15M PRN; Protocol PRN Reason: per Hypoglycemia Standing Ord. Dextrose (D10) 250 mls @ 750 mls/hr IV Q15M PRN PRN Reason: per Hypoglycemia Standing Ord. Last Infusion: 03/14/24 12:51 Dose: Infused Documented By: LOREN Insulin Human Lispro (Insulin Lispro 100 Unit/Ml 3 Ml Vial) 0 unit SUBCUT QIDACHS [facility]; Protocol Last Admin: 03/20/24 20:42 Dose: Not Given Documented By: GERSON Non-Admin Reason: POC 110 Naloxone HCl (Naloxone Hcl 0.4 Mg/Ml Vial) 0.2 mg IVPUSH Q2M PRN PRN Reason: Excessive sedation or RR < 8 Sodium Chloride (0.9 % Sodium Chloride Flush 3 Ml Syringe) 3 ml IVFLUSH QSHIFT [facility] Last Admin: 03/20/24 20:42 Dose: 3 ml Documented By: GERSON Labs 03/21/24 06:40 03/21/24 06:40 Labs: Laboratory Results - last 24 hr 03/20/24 03/20/24 03/20/24 12:32 16:24 20:15 MCV MCH MCHC RDW Plt Count MPV Immature Gran % (Auto) Neut % (Auto) Lymph % (Auto) Dickey % (Auto) Eos % (Auto) Baso % (Auto) Lymph # (Auto) Dickey # (Auto) Eos # (Auto) Baso # (Auto) Abs Immat Gran (auto) Absolute Neuts (auto) Absolute Nucleated RBC Nucleated RBC % (auto) Smear Tech's Comments VBG pH VBG pCO2 VBG pO2 VBG HCO3 VBG O2 Saturation VBG Base Excess Anion Gap Estim Creat Clear Calc Estimated GFR POC Glucose 85 102 110 Random Glucose Calcium Phosphorus Magnesium Albumin 03/21/24 03/21/24 03/21/24 00:15 03:15 06:05 MCV MCH MCHC RDW Plt Count MPV Immature Gran % (Auto) Neut % (Auto) Lymph % (Auto) Dickey % (Auto) Eos % (Auto) Baso % (Auto) Lymph # (Auto) Dickey # (Auto) Eos # (Auto) Baso # (Auto) Abs Immat Gran (auto) Absolute Neuts (auto) Absolute Nucleated RBC Nucleated RBC % (auto) Smear Tech's Comments VBG pH VBG pCO2 VBG pO2 VBG HCO3 VBG O2 Saturation VBG Base Excess Anion Gap Estim Creat Clear Calc Estimated GFR POC Glucose 86 88 79 Random Glucose Calcium Phosphorus Magnesium Albumin 03/21/24 03/21/24 06:40 06:54 MCV 99.6 H MCH 33.0 MCHC 33.1 RDW 17.1 H Plt Count 143 L MPV 9.1 L Immature Gran % (Auto) 0.7 H Neut % (Auto) 71.6 Lymph % (Auto) 17.6 L Dickey % (Auto) 8.4 Eos % (Auto) 1.3 Baso % (Auto) 0.4 Lymph # (Auto) 1.4 Dickey # (Auto) 0.7 Eos # (Auto) 0.1 Baso # (Auto) 0.0 Abs Immat Gran (auto) 0.06 H Absolute Neuts (auto) 5.9 Absolute Nucleated RBC 0.000 Nucleated RBC % (auto) 0.0 Smear Tech's Comments VERIFIED VBG pH 7.36 VBG pCO2 40 VBG pO2 83 VBG HCO3 23 VBG O2 Saturation 96.0 VBG Base Excess -1.6 Anion Gap 19 Estim Creat Clear Calc 12.3 Estimated GFR 16 POC Glucose Random Glucose 90 Calcium 10.1 Phosphorus 3.8 Magnesium 2.1 Albumin 4.1 Assessment and Plan (1) C. difficile colitis: Status: Acute (2) PAF (paroxysmal atrial fibrillation): Status: Acute (3) Multifocal pneumonia: Status: Acute Plan 69-year-old man admitted initially to the ICU with dyspnea and found to be hypoxic, due to this he was intubated and admitted to the ICU for treatment of pulmonary edema Acute hypoxic respiratory failure secondary to community-acquired pneumonia and pulmonary edema Initially intubated in the ED, extubated 03/19/2024 Status post Zosyn x5 days supplemental oxygen as needed check BMP in the morning repeat cxr in the am Recurrent C diff infection Continue fidaxomicin End-stage renal disease on dialysis Tuesday, , Tuesday schedule was on Epogen for anemia Midodrine on dialysis days Diabetes mellitus type 2 Sliding scale, ADA diet, Lantus Paroxysmal atrial fibrillation Continue amiodarone and calcium channel benjamin Hypertension Stable but low Hold valsartan for now Mental health Continue home medications Hyperlipidemia/CAD Continue aspirin and statin Moderate protein calorie malnutrition Ensure added to diet DVT prophylaxis with Eliquis Full code DISPO back to LTC when medically clear Quality Stroke Does the patient have a stroke diagnosis?: No VTE Prior VTE?: No VTE Risk Level:: Medical - moderate - high VTE Device Contraindication: N/A - Device Ordered VTE Drug Contraindication: Treatment Not Tolerated
--- NOTE | 2024-03-21 09:51 | MHC.CM.PN ---
Per DISTRIBUTION DISTRICT SUPERVISOR, Patient is just up from ICU and is not yet medically cleared for dc; returning to LTC @ [facility] is the goal and CM will continue to follow.
--- NOTE | 2024-03-21 10:29 | MHC.CLN ---
F/U PO INTAKE 50% X 1 MEALS DIET RX: 2200DM 2GM NA LOW K LOW PHOS GRD M/S -APPROPRIATE PT RECEIVING ENSURE CLEAR TID TO INCREASE KCALS (SUPP IS RENAL FRIENDLY) SUPP PROVIDES 720KCALS, 24G PROTEIN WITH 100% ACCEPTANCE MONITOR PO INTAKE AND ENCOURAGE SUPPLEMENT
[2024-03-21] MEDS: Fidaxomicin 200 MG TABLET PO ×2 (10:35→20:59)
[2024-03-21] MEDS: FLUoxetine HCl 20 MG CAPSULE PO ×2 (10:35→20:58)
[2024-03-21 10:36] VITALS: BP 115/66
[2024-03-21] MEDS: Apixaban 2.5 MG TABLET PO ×2 (10:36→20:59)
[2024-03-21] MEDS: Aspirin 81 MG TAB.CHEW PO (10:36)
[2024-03-21] MEDS: Cholecalciferol (Vitamin D3) 25 MCG TABLET 50 MCG PO (10:36)
[2024-03-21] MEDS: Amiodarone HCL 200 MG TABLET PO (10:36)
[2024-03-21] MEDS: carvediloL 3.125 MG TABLET PO (10:36)
[2024-03-21] MEDS: Multivitamin TABLET 1 TAB PO (10:36)
[2024-03-21] MEDS: Brimonidine Tartrate 0.2% Oph 5 ML BOTTLE 1 DROP EYE-LEFT ×3 (10:48→21:05)
[2024-03-21] MEDS: timoloL maleate 0.5 % Oph Sol 5 ML DRBTL 1 DROP EYE-LEFT ×2 (10:48→20:59)
[2024-03-21] MEDS: Dorzolamide HCl 2 % Ophth Sol 10 ML DRPBTL 1 DROP EYE-LEFT ×2 (10:48→20:59)
[2024-03-21] MEDS: 0.9 % Sodium Chloride Flush 3 ML SYRINGE IVFLUSH ×2 (10:50→20:59)
[2024-03-21 11:30] LABS: Glucose, Whole Blood 254 mg/dL (60-115)
[2024-03-21] MEDS: Insulin Lispro 100 UNIT/ML 3 ML VIAL SUBCUT (12:10)
--- NOTE | 2024-03-21 13:19 | HO.WOUND ---
Wound Consult: Initial 69yr old?male admitted to [facility] on 03/14/24 11:50 - See progress notes and H&P for detailed history.? Wound consult placed for Coccyx and heel wounds POA.? Patient agreeable to assessment and photo documentation.? Sacrum - MASD - epidermal peeling noted - hyperpigmentation noted - no pressure injury noted at this time - hypopigmented tissue noted with evidence of previous injury Right Heel Etiology: Deep Tissue Injury - Present on Admission Measurements: 3.5cm x 2cm x 0cm Wound Bed: intact dark maroon and purple tissue Drainage / Odor: None Edges: ?irregular Delilah wound: ?pink blanchable tissue - No Induration, Fluctuance or Warmth noted Goals of Treatment: ? Off Load Pressure - heels elevated Left Achilles Etiology: ??Healed and resurfaced Diabetic wound Wound Bed: resurfaced intact Drainage / Odor: None Edges: ? well defined Delilah wound: ? Hyperpigmented tissue - No Induration, Fluctuance or Warmth noted Goals of Treatment: ? Off Load Pressure - heels elevated Recommendations: 1. Turn and Reposition every 2 hours and as needed for patient comfort.? Use pillows or wedges to support off loading positions. 2. Off Load all bony prominences with use of pillows and heel boots if needed.? Apply Preventative foams where needed. ? 3. Monitor for incontinence and moisture control, use barrier creams when needed for prevention and treatment. 4. Provide adequate and supplemental nutrition.? 5. Continue low air loss mattress. 6. When applicable maintain blood glucose levels per Providers order. 7. Sacrum - Routine cleansing, Apply sacral foam dressing - peel back and assess Q shift and change every 5 days and PRN. 8. Buttock, perianal and scrotum - Cleanse with Ph balances wipes and or spray. Apply barrier cream to areas twice daily and PRN. 9. Bilateral Heels - Apply skin prep allow to dry. Apply Heel Protector Boots to off load pressure from heels. Re-consult wound care Nurse for wound deterioration or wound changes.
--- NOTE | 2024-03-21 14:01 | MHC.SLORD ---
Speech Language Pathology Order Status: Pt refused PO trials w/ FOREIGN LANGUAGE INSTRUCTOR on this date. Nursing reports no concerns for ground solids, thin liquids, and pills crushed in puree.
[2024-03-21 16:00] VITALS: BP 99/57; PULSE 69; RESP 18; TEMP 36.9; O2SAT 92
[2024-03-21 16:43] LABS: Glucose, Whole Blood 155 mg/dL (60-115)
[2024-03-21 19:41] VITALS: BP 111/65; PULSE 69; RESP 19; TEMP 36.8; O2SAT 95
[2024-03-21] MEDS: Atorvastatin Calcium 80 MG TABLET PO (20:58)
[2024-03-21] MEDS: Latanoprost 0.005 % Ophth Sol 2.5 ML DROPS 1 DROP EYE-LEFT (20:59)
[2024-03-21] MEDS: traZODone HCL 25 MG HALFTAB PO (20:59)
[2024-03-21 21:07] LABS: Glucose, Whole Blood 125 mg/dL (60-115)
[2024-03-21 23:01] VITALS: BP 111/63; PULSE 71; RESP 19; TEMP 35.9; O2SAT 100
[2024-03-21 23:10] LABS: Glucose, Whole Blood 128 mg/dL (60-115)
[2024-03-22] VITALS (7 sets, daily range): BP systolic 97–136; BP diastolic 53–70; PULSE 62–72; RESP 12–19; TEMP 36.1–36.7; O2SAT 98–100
[2024-03-22 05:46] LABS: Glucose, Whole Blood 111 mg/dL (60-115)
[2024-03-22 07:29] LABS: Anion Gap 20 (12-20); Blood Urea Nitrogen 37 mg/dL (9-16); Calcium 9.5 mg/dL (8.4-10.2); Carbon Dioxide 20 mmol/L (22-29); Chloride 99 mmol/L (96-108); Creatinine Clr Calc Pharmacy 9.3; Estimated Glomerular Filt Rate 12; Glucose Random 116 mg/dL (60-115); Potassium 3.7 mmol/L (3.3-5.1); Sodium 135 mmol/L (135-145)
[2024-03-22 08:01] LABS: Glucose, Whole Blood 118 mg/dL (60-115)
[2024-03-22] MEDS: Midodrine HCl 5 MG TABLET PO (08:26)
[2024-03-22] MEDS: 0.9 % Sodium Chloride Flush 3 ML SYRINGE IVFLUSH ×3 (08:26→20:48)
[2024-03-22 09:07] LABS: B Type Natriuretic Peptide 8566 pg/mL (<100)
--- NOTE | 2024-03-22 09:55 | P.PNIM_ITS ---
Subjective Subjective Date of Service: 03/22/24 Review of Systems Follow up ICU transfer for pulmonary edema and recurrent C diff more awake and conversing Physical Exam 2 Vital Signs: Vital Signs: Last Vital Signs Temp 97.1 F 03/22/24 07:50 Pulse 68 03/22/24 07:50 Resp 16 03/22/24 07:50 BP 119/57 L 03/22/24 07:50 Pulse Ox 98 03/22/24 07:50 O2 Del Method Nasal Cannula 03/22/24 07:50 O2 Flow Rate 3 03/22/24 07:50 FiO2 25 03/19/24 10:42 Oxygen Flow Rate 10 03/14/24 08:28 BMI result Body Mass Index 19.8 Appearing in no acute distress lung sounds are clear to auscultation heart regular rate rhythm, clear S1, S2 positive bowel sounds, abdomen is soft, nontender neuro patient is alert x3, no focal deficits Rectal tube Objective Data Active Medications Amiodarone HCl (Amiodarone Hcl 200 Mg Tablet) 200 mg PO DAILY [facility] Last Admin: 03/21/24 10:36 Dose: 200 mg Documented By: ALANA Apixaban (Apixaban 2.5 Mg Tablet) 2.5 mg PO BID [facility] Last Admin: 03/21/24 20:59 Dose: 2.5 mg Documented By: MUNDO Aspirin (Aspirin 81 Mg Tab.Chew) 81 mg PO DAILY [facility] Last Admin: 03/21/24 10:36 Dose: 81 mg Documented By: ALANA Atorvastatin Calcium (Atorvastatin Calcium 80 Mg Tablet) 80 mg PO BEDTIME [facility] Last Admin: 03/21/24 20:58 Dose: 80 mg Documented By: MUNDO Brimonidine Tartrate (Brimonidine Tartrate 0.2% Oph 5 Ml Bottle) 1 drop EYE- LEFT TID [facility] Last Admin: 03/21/24 21:05 Dose: 1 drop Documented By: MUNDO Carvedilol (Carvedilol 3.125 Mg Tablet) 3.125 mg PO BID [facility]; Protocol Last Admin: 03/21/24 21:39 Dose: Not Given Documented By: MUNDO Non-Admin Reason: per MD hold medication Dorzolamide HCl (Dorzolamide Hcl 2 % Ophth Dee 10 Ml Drpbtl) 1 drop EYE-LEFT BID [facility] Last Admin: 03/21/24 20:59 Dose: 1 drop Documented By: MUNDO Fidaxomicin (Fidaxomicin 200 Mg Tablet) 200 mg PO Q12H [facility] Last Admin: 03/21/24 20:59 Dose: 200 mg Documented By: MUNDO Fluoxetine HCl (Fluoxetine Hcl 20 Mg Capsule) 20 mg PO BID [facility] Last Admin: 03/21/24 20:58 Dose: 20 mg Documented By: MUNDO Glucose (Glucose Gel 15 Gm Gel..Gram.) 15 gm PO Q15M PRN; Protocol PRN Reason: per Hypoglycemia Standing Ord. Dextrose (D10) 250 mls @ 750 mls/hr IV Q15M PRN PRN Reason: per Hypoglycemia Standing Ord. Last Infusion: 03/14/24 12:51 Dose: Infused Documented By: LOREN Insulin Glargine (Insulin Glargine,Hum.Rec.Anlog 100 Unit/Ml 10 Ml Vial) 4 unit SUBCUT BEDTIME [facility] Last Admin: 03/21/24 21:39 Dose: Not Given Documented By: MUNDO Non-Admin Reason: poor PO intake Insulin Human Lispro (Insulin Lispro 100 Unit/Ml 3 Ml Vial) 0 unit SUBCUT QIDACHS [facility]; Protocol Last Admin: 03/22/24 08:02 Dose: Not Given Documented By: CALISTA Non-Admin Reason: No Insulin Coverage Latanoprost (Latanoprost 0.005 % Ophth Dee 2.5 Ml Drops) 1 drop EYE-LEFT BEDTIME [facility] Last Admin: 03/21/24 20:59 Dose: 1 drop Documented By: MUNDO Midodrine (Midodrine Hcl 5 Mg Tablet) 5 mg PO TUTHSA [facility] Last Admin: 03/22/24 08:26 Dose: 5 mg Documented By: CALISTA Multivitamins/Vitamin C (Multivitamin Tablet) 1 tab PO DAILY [facility] Last Admin: 03/21/24 10:36 Dose: 1 tab Documented By: ALANA Naloxone HCl (Naloxone Hcl 0.4 Mg/Ml Vial) 0.2 mg IVPUSH Q2M PRN PRN Reason: Excessive sedation or RR < 8 Sodium Chloride (0.9 % Sodium Chloride Flush 3 Ml Syringe) 3 ml IVFLUSH QSHIFT [facility] Last Admin: 03/22/24 08:26 Dose: 3 ml Documented By: CALISTA Timolol Maleate (Timolol Maleate 0.5 % Oph Dee 5 Ml Drbtl) 1 drop EYE-LEFT BID [facility] Last Admin: 03/21/24 20:59 Dose: 1 drop Documented By: MUNDO Trazodone HCl (Trazodone Hcl 25 Mg Halftab) 25 mg PO BEDTIME [facility] Last Admin: 03/21/24 20:59 Dose: 25 mg Documented By: MUNDO Vitamin D (Cholecalciferol (Vitamin D3) 25 Mcg Tablet) 50 mcg PO DAILY [facility] Last Admin: 03/21/24 10:36 Dose: 50 mcg Documented By: ALANA Labs 03/21/24 06:40 03/22/24 06:11 Labs: Laboratory Results - last 24 hr 03/21/24 03/21/24 03/21/24 11:25 16:35 21:03 Hold Purple Top Anion Gap Estim Creat Clear Calc Estimated GFR POC Glucose 254 H 155 H 125 H Random Glucose Calcium B-Natriuretic Peptide 03/21/24 03/22/24 03/22/24 23:07 05:42 06:11 Hold Purple Top Anion Gap 20 Estim Creat Clear Calc 9.3 Estimated GFR 12 POC Glucose 128 H 111 Random Glucose 116 H Calcium 9.5 B-Natriuretic Peptide 03/22/24 03/22/24 07:57 08:11 Hold Purple Top SEE NOTE Anion Gap Estim Creat Clear Calc Estimated GFR POC Glucose 118 H Random Glucose Calcium B-Natriuretic Peptide 8566 H Assessment and Plan (1) C. difficile colitis: Status: Acute (2) PAF (paroxysmal atrial fibrillation): Status: Acute (3) Multifocal pneumonia: Status: Acute Plan 69-year-old man admitted initially to the ICU with dyspnea and found to be hypoxic, due to this he was intubated and admitted to the ICU for treatment of pulmonary edema Acute hypoxic respiratory failure secondary to community-acquired pneumonia and pulmonary edema Initially intubated in the ED, extubated 03/19/2024 Status post Zosyn x5 days supplemental oxygen as needed Recurrent C diff infection Continue fidaxomicin End-stage renal disease on dialysis Tuesday, , Tuesday schedule was on Epogen for anemia Midodrine on dialysis days Diabetes mellitus type 2 Sliding scale, ADA diet, Lantus Paroxysmal atrial fibrillation Continue amiodarone and calcium channel benjamin Hypertension Stable but low Hold valsartan for now Mental health Continue home medications Hyperlipidemia/CAD Continue aspirin and statin Moderate protein calorie malnutrition Ensure added to diet DVT prophylaxis with Eliquis Full code DISPO back to LTC when medically clear Quality Stroke Does the patient have a stroke diagnosis?: No VTE Prior VTE?: No VTE Risk Level:: Medical - moderate - high VTE Device Contraindication: N/A - Device Ordered VTE Drug Contraindication: Treatment Not Tolerated
[2024-03-22 11:44] LABS: Glucose, Whole Blood 138 mg/dL (60-115)
--- NOTE | 2024-03-22 13:53 | MHC.SL.SWA ---
Speech Pathologist Impression: Risk of Aspiration Due to: Lethargy Poor PO Intake Hx of Recent Extubation Reduced Cognition Weak Cough Weak Voice Dysphasia Diet Status: Recommend UPGRADE solids to CHOPPED/ADVANCED, continue on Thin liquids, Pills whole in puree. MANUFACTURERS SERVICE REPRESENTATIVE will continue to follow. Liquid Consistency and Strategies for Safe Swallow: Liquid Intake Recommendation: Thin Liquid Intake Strategies: Small Sips Solid Food Consistency: Dietary Recommendations: Chopped/Advanced (NDD3) Additional Modifications to Solid Foods: Oral Medication Intake: Whole with Puree Please contact the pharmacy regarding appropriate crushable or liquid drug formulations that are available whenever modified delivery is recommended. Compensatory Strategies and Precautions to be Taken for Safe Swallow: Sitting Upright (90 deg) Liquids from Cup Liquids from Straw Alternate Liquids/Solids Rate of Ingestion Change Supervision While Eating and Drinking for Safe Swallow: Total Assistance (1:1) Foods to Avoid: Swallowing Recommended Treatments: Compens. Strategy Educat. Recommendation for Speech: Further Testing Needed Comment: Patient checked on this a.m. (Breakfast) and at lunch, at both visits meal had been completed. Noted that at Breakfast, patient had consumed all food/drink on tray; at lunch patient had eaten minimally. MANUFACTURERS SERVICE REPRESENTATIVE returned to re-assess swallow for possible advancement of diet. Patient was awake and responsive, confused. MANUFACTURERS SERVICE REPRESENTATIVE communicated with Patient in Ethiopian, with patient agreeing to food trials, and was pleasant and cooperative throughout. Patient was given hard piece of cracker in small amount of pudding, with patient producing a rotary chew on this consistency, but chewing for a moderately prolonged period before propelling for swallow. Swallow was timely with complete laryngeal transit palpated. Full oral clearance of the bolus after swallow. Patient given 5 trials at this consistency with very consistent response to this texture, no clinical signs of aspiration. Patient further given sips of liquids by straw, which patient managed well. Patient continues to need 1-1 feed. Recommend UPGRADE solids to CHOPPED/ADVANCED, continue on Thin liquids, Pills whole in puree. MANUFACTURERS SERVICE REPRESENTATIVE will continue to follow. Frequency/Duration: Daily Date Range for Service Req: Admission - Discharge Timeline to reassess: PRN Manager Technical Training Clinican/Clinical Fellow: No Supervisory Statement: I have reviewed and agree with the student/clinical fellow's documentation: N/A Speech Language Pathologist: Elsi Cerda M.A., [facility]-MANUFACTURERS SERVICE REPRESENTATIVE
[2024-03-22] MEDS: timoloL maleate 0.5 % Oph Sol 5 ML DRBTL 1 DROP EYE-LEFT ×2 (14:08→20:49)
[2024-03-22] MEDS: Brimonidine Tartrate 0.2% Oph 5 ML BOTTLE 1 DROP EYE-LEFT ×2 (14:09→20:49)
[2024-03-22] MEDS: Dorzolamide HCl 2 % Ophth Sol 10 ML DRPBTL 1 DROP EYE-LEFT ×2 (14:09→20:49)
[2024-03-22] MEDS: Fidaxomicin 200 MG TABLET PO ×2 (14:09→20:47)
[2024-03-22] MEDS: Aspirin 81 MG TAB.CHEW PO (14:10)
[2024-03-22] MEDS: FLUoxetine HCl 20 MG CAPSULE PO ×2 (14:10→20:47)
[2024-03-22] MEDS: Amiodarone HCL 200 MG TABLET PO (14:10)
[2024-03-22] MEDS: Cholecalciferol (Vitamin D3) 25 MCG TABLET 50 MCG PO (14:10)
[2024-03-22] MEDS: Apixaban 2.5 MG TABLET PO ×2 (14:10→20:47)
[2024-03-22] MEDS: carvediloL 3.125 MG TABLET PO (14:11)
[2024-03-22] MEDS: Multivitamin TABLET 1 TAB PO (14:20)
[2024-03-22 16:40] LABS: Glucose, Whole Blood 201 mg/dL (60-115)
[2024-03-22] MEDS: Insulin Lispro 100 UNIT/ML 3 ML VIAL SUBCUT (17:02)
[2024-03-22 20:17] LABS: Glucose, Whole Blood 199 mg/dL (60-115)
[2024-03-22] MEDS: Insulin Glargine,Hum.rec.anlog 100 UNIT/ML 10 ML VIAL SUBCUT (20:47)
[2024-03-22] MEDS: Atorvastatin Calcium 80 MG TABLET PO (20:47)
[2024-03-22] MEDS: Latanoprost 0.005 % Ophth Sol 2.5 ML DROPS 1 DROP EYE-LEFT (20:49)
[2024-03-22] MEDS: traZODone HCL 25 MG HALFTAB PO (20:58)
--- NOTE | 2024-03-22 22:41 | P.PNNP_ITS ---
Subjective Subjective Date of Service: 03/22/24 Interval history: Seen and examined, events noted Currently on HD Physical Exam 2 Vital Signs: Vital Signs: Last Vital Signs Temp 98.0 F 03/22/24 20:00 Pulse 62 03/22/24 20:00 Resp 19 03/22/24 20:00 BP 126/70 03/22/24 20:00 Pulse Ox 99 03/22/24 20:00 O2 Del Method Nasal Cannula 03/22/24 20:00 O2 Flow Rate 2 03/22/24 16:25 FiO2 25 03/19/24 10:42 Oxygen Flow Rate 10 03/14/24 08:28 BMI result Body Mass Index 19.8 Const: Other: intubated, sedated General: comfortable, no acute distress, alert and awake HEENT: Head: Yes normal to inspection, Yes normocephalic and Yes atraumatic Eyes: General: appearance normal, both eyes and all related structures S clerae: sclerae normal EOM: EOMs intact bilaterally Neck: Neck: Yes normal visual inspection, Yes full ROM, Yes no lymphadenopathy, Yes trachea midline and Yes supple Chest: Chest palpation & inspection: normal inspection of the chest Resp: Other: some appreciable rhonchi; no appreciable rales, wheezing Effort & Inspection: normal respiratory effort and tachypneic A uscultation: clear to auscultation bilaterally Cardio: Rate: regular rate Rhythm: regular rhythm Heart sounds: no gallops, no murmurs and no rubs GI: Inspection: Yes normal to inspection, No Abdominal wall edema and No distended Palpation (GI): Soft to palpation, not firm, nontender, no guarding, not rigid and Other GI palpation findings present ( Nontender) A uscultation: normal bowel sounds : Male General Exam: Yes normal external exam Skin: General skin exam: no rashes or lesions noted Neuro: Other: unable to assess General: tone normal Extrem: General: Yes normal to inspection, Yes full ROM, Yes capillary refill normal, Yes no clubbing, cyanosis or edema, Yes no pedal edema, No clubbing and No cyanosis Psych: Other: unable to assess Objective Data Labs 03/21/24 06:40 03/22/24 06:11 Labs: Laboratory Results - last 24 hr 03/21/24 03/22/24 03/22/24 23:07 05:42 06:11 Hold Purple Top Sodium 135 Potassium 3.7 Chloride 99 Carbon Dioxide 20 L Anion Gap 20 BUN 37 H Creatinine 4.87 H* Estim Creat Clear Calc 9.3 Estimated GFR 12 POC Glucose 128 H 111 Random Glucose 116 H Calcium 9.5 B-Natriuretic Peptide 03/22/24 03/22/24 03/22/24 07:57 08:11 11:38 Hold Purple Top SEE NOTE Sodium Potassium Chloride Carbon Dioxide Anion Gap BUN Creatinine Estim Creat Clear Calc Estimated GFR POC Glucose 118 H 138 H Random Glucose Calcium B-Natriuretic Peptide 8566 H 03/22/24 03/22/24 16:33 20:11 Hold Purple Top Sodium Potassium Chloride Carbon Dioxide Anion Gap BUN Creatinine Estim Creat Clear Calc Estimated GFR POC Glucose 201 H 199 H Random Glucose Calcium B-Natriuretic Peptide Microbiology Microbiology Results: Microbiology 03/14/24 09:10 Blood - Venous Blood Culture - Final No growth after 5 days. 03/14/24 08:51 Blood - Venous Blood Culture - Final No growth after 5 days. 03/14/24 Unknown Urine Catheterized - [place] Catheter Urine Culture - Final Procedures Date of Service Date of Service: 03/22/24 Assessment & Plan Assessment and plan (1) Acute hypoxic respiratory failure: Status: Acute (2) ESRD needing dialysis: Status: Acute (3) Chronic HFrEF (heart failure with reduced ejection fraction): Status: Acute (4) PAF (paroxysmal atrial fibrillation): Status: Acute Plan 1. ERSRD: cnt HD TTS 2. 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 Progress Note: Quality Stroke Does the patient have a stroke diagnosis?: No
[2024-03-23 03:41] VITALS: BP 108/56; PULSE 64; RESP 19; TEMP 36.1; O2SAT 97
[2024-03-23 07:16] VITALS: BP 94/51; PULSE 60; RESP 18; TEMP 36.4; O2SAT 100
[2024-03-23 07:37] LABS: Glucose, Whole Blood 145 mg/dL (60-115)
[2024-03-23] MEDS: Aspirin 81 MG TAB.CHEW PO (08:58)
[2024-03-23] MEDS: Fidaxomicin 200 MG TABLET PO ×2 (08:58→21:43)
[2024-03-23] MEDS: FLUoxetine HCl 20 MG CAPSULE PO ×2 (08:58→21:44)
[2024-03-23] MEDS: Apixaban 2.5 MG TABLET PO ×2 (08:58→21:44)
[2024-03-23] MEDS: Multivitamin TABLET 1 TAB PO (08:58)
[2024-03-23] MEDS: 0.9 % Sodium Chloride Flush 3 ML SYRINGE IVFLUSH ×3 (08:59→21:59)
[2024-03-23] MEDS: Amiodarone HCL 200 MG TABLET PO (08:59)
[2024-03-23] MEDS: Cholecalciferol (Vitamin D3) 25 MCG TABLET 50 MCG PO (08:59)
[2024-03-23] MEDS: Dorzolamide HCl 2 % Ophth Sol 10 ML DRPBTL 1 DROP EYE-LEFT ×2 (09:09→21:47)
[2024-03-23] MEDS: timoloL maleate 0.5 % Oph Sol 5 ML DRBTL 1 DROP EYE-LEFT ×2 (09:09→21:47)
[2024-03-23] MEDS: Brimonidine Tartrate 0.2% Oph 5 ML BOTTLE 1 DROP EYE-LEFT ×3 (09:09→21:47)
--- NOTE | 2024-03-23 10:35 | MHC.CM.PN ---
Patient is not yet medically cleared for dc (steady improvement with Hypoxic Respiratory Failure);returning to LTC [facility] is the goal. CM will follow.
--- NOTE | 2024-03-23 10:45 | HO.PM.IMPN ---
Subjective Subjective Date of Service: 03/23/24 Interval History: seen and examined offers no complaints Physical Exam Vital Signs: Vital Signs: Last Vital Signs Temp 97.6 F 03/23/24 07:16 Pulse 60 03/23/24 07:16 Resp 18 03/23/24 07:16 BP 94/51 L 03/23/24 07:16 Pulse Ox 100 03/23/24 07:16 O2 Del Method Room Air 03/23/24 07:16 O2 Flow Rate 2 03/22/24 16:25 FiO2 25 03/19/24 10:42 Oxygen Flow Rate 10 03/14/24 08:28 BMI result Body Mass Index 19.8 Const: Other: General - no acute distress, appears comfortable Cardiovascular - regular rate and rhythm, S1-S2 Lungs - normal respiratory effort, clear to auscultation bilaterally, no wheezing Abdomen - soft, nontender, no rebound or guarding Extremities - no edema bilaterally Neuro - awake and alert, no focal deficits Objective Data Active Medications Amiodarone HCl (Amiodarone Hcl 200 Mg Tablet) 200 mg PO DAILY [facility] Last Admin: 03/23/24 08:59 Dose: 200 mg Documented By: ALANA Apixaban (Apixaban 2.5 Mg Tablet) 2.5 mg PO BID [facility] Last Admin: 03/23/24 08:58 Dose: 2.5 mg Documented By: ALANA Aspirin (Aspirin 81 Mg Tab.Chew) 81 mg PO DAILY [facility] Last Admin: 03/23/24 08:58 Dose: 81 mg Documented By: ALANA Atorvastatin Calcium (Atorvastatin Calcium 80 Mg Tablet) 80 mg PO BEDTIME [facility] Last Admin: 03/22/24 20:47 Dose: 80 mg Documented By: MUNDO Brimonidine Tartrate (Brimonidine Tartrate 0.2% Oph 5 Ml Bottle) 1 drop EYE-LEFT TID [facility] Last Admin: 03/23/24 09:09 Dose: 1 drop Documented By: ALANA Carvedilol (Carvedilol 3.125 Mg Tablet) 3.125 mg PO BID [facility]; Protocol Last Admin: 03/23/24 08:50 Dose: Not Given Documented By: ALANA Non-Admin Reason: Physician Held Med Dorzolamide HCl (Dorzolamide Hcl 2 % Ophth Dee 10 Ml Drpbtl) 1 drop EYE-LEFT BID [facility] Last Admin: 03/23/24 09:09 Dose: 1 drop Documented By: ALANA Fidaxomicin (Fidaxomicin 200 Mg Tablet) 200 mg PO BID [facility] Last Admin: 03/23/24 08:58 Dose: 200 mg Documented By: ALANA Fluoxetine HCl (Fluoxetine Hcl 20 Mg Capsule) 20 mg PO BID [facility] Last Admin: 03/23/24 08:58 Dose: 20 mg Documented By: ALANA Glucose (Glucose Gel 15 Gm Gel..Gram.) 15 gm PO Q15M PRN; Protocol PRN Reason: per Hypoglycemia Standing Ord. Dextrose (D10) 250 mls @ 750 mls/hr IV Q15M PRN PRN Reason: per Hypoglycemia Standing Ord. Last Infusion: 03/14/24 12:51 Dose: Infused Documented By: LOREN Insulin Glargine (Insulin Glargine,Hum.Rec.Anlog 100 Unit/Ml 10 Ml Vial) 4 unit SUBCUT BEDTIME [facility] Last Admin: 03/22/24 20:47 Dose: 4 unit Documented By: MUNDO Insulin Human Lispro (Insulin Lispro 100 Unit/Ml 3 Ml Vial) 0 unit SUBCUT QIDACHS [facility]; Protocol Last Admin: 03/23/24 08:00 Dose: Not Given Documented By: ALANA Non-Admin Reason: No Insulin Coverage Latanoprost (Latanoprost 0.005 % Ophth Dee 2.5 Ml Drops) 1 drop EYE-LEFT BEDTIME [facility] Last Admin: 03/22/24 20:49 Dose: 1 drop Documented By: MUNDO Midodrine (Midodrine Hcl 5 Mg Tablet) 5 mg PO TUTHSA [facility] Last Admin: 03/22/24 08:26 Dose: 5 mg Documented By: CALISTA Multivitamins/Vitamin C (Multivitamin Tablet) 1 tab PO DAILY [facility] Last Admin: 03/23/24 08:58 Dose: 1 tab Documented By: ALANA Naloxone HCl (Naloxone Hcl 0.4 Mg/Ml Vial) 0.2 mg IVPUSH Q2M PRN PRN Reason: Excessive sedation or RR < 8 Sodium Chloride (0.9 % Sodium Chloride Flush 3 Ml Syringe) 3 ml IVFLUSH QSHIFT [facility] Last Admin: 09/13/24 08:59 Dose: 3 ml Documented By: ALANA Timolol Maleate (Timolol Maleate 0.5 % Oph Dee 5 Ml Drbtl) 1 drop EYE-LEFT BID [facility] Last Admin: 03/23/24 09:09 Dose: 1 drop Documented By: ALANA Trazodone HCl (Trazodone Hcl 25 Mg Halftab) 25 mg PO BEDTIME [facility] Last Admin: 03/22/24 20:58 Dose: 25 mg Documented By: MUNDO Vitamin D (Cholecalciferol (Vitamin D3) 25 Mcg Tablet) 50 mcg PO DAILY [facility] Last Admin: 03/23/24 08:59 Dose: 50 mcg Documented By: ALANA Labs 03/21/24 06:40 03/22/24 06:11 Labs: Laboratory Results - last 24 hr 03/22/24 03/22/24 03/22/24 11:38 16:33 20:11 POC Glucose 138 H 201 H 199 H 03/23/24 07:21 POC Glucose 145 H Assessment and Plan (1) C. difficile colitis: Status: Acute (2) PAF (paroxysmal atrial fibrillation): Status: Acute (3) Multifocal pneumonia: Status: Acute Plan 69-year-old man admitted initially to the ICU with dyspnea and found to be hypoxic, due to this he was intubated and admitted to the ICU for treatment of pulmonary edema Acute hypoxic respiratory failure secondary to community-acquired pneumonia and pulmonary edema Initially intubated in the ED, extubated 03/19/2024 Status post Zosyn x5 days on RA Recurrent C diff infection Continue fidaxomicin ID consult for treatment duration End-stage renal disease on dialysis Tuesday, , Tuesday schedule was on Epogen for anemia Midodrine on dialysis days Diabetes mellitus type 2 Sliding scale, ADA diet, Lantus Paroxysmal atrial fibrillation Continue amiodarone, hold BB today due to low bp hx of Hypertension bp has been low, will hold antihypertensives suspect due to low volume from c. diff diarrhea Mental health Continue home medications Hyperlipidemia/CAD Continue aspirin and statin Moderate protein calorie malnutrition Ensure added to diet DVT prophylaxis with Eliquis Full code reason for continued hospitalization: pt with low BP, also needs ID input re: treament for recurrent c. diff infection; eventual transfer back to [facility] Quality Stroke Does the patient have a stroke diagnosis?: No VTE Prior VTE?: No VTE Risk Level:: Medical - moderate - high VTE Device Contraindication: N/A - Device Ordered VTE Drug Contraindication: Treatment Not Tolerated
[2024-03-23 11:17] VITALS: BP 98/57; PULSE 61; RESP 18; TEMP 36.1; O2SAT 97
[2024-03-23 11:21] LABS: Glucose, Whole Blood 156 mg/dL (60-115)
--- NOTE | 2024-03-23 11:29 | MHC.CLN ---
F/U PO INTAKE 50-100% DIET RX: 2200DM 2GM NA LOW K LOW PHOS CHOPPED -APPROPRIATE PT RECEIVING ENSURE CLEAR TID TO INCREASE KCALS (SUPP IS RENAL FRIENDLY) SUPP PROVIDES 720KCALS, 24G PROTEIN WITH 100% ACCEPTANCE MONITOR PO INTAKE AND ENCOURAGE SUPPLEMENT
--- NOTE | 2024-03-23 12:27 | MHC.SL.SWA ---
Speech Pathologist Impression: Risk of aspiration, oropharyngeal dysphagia Risk of Aspiration Due to: Lethargy Poor PO Intake Hx of Recent Extubation Reduced Cognition Weak Cough Weak Voice Dysphasia Diet Status: Recommend CONTINUE on CHOPPED/ADVANCED (NDD3) diet and THIN liquids, Pills whole in puree. CHURN OPERATOR MARGARINE will continue to follow. Liquid Consistency and Strategies for Safe Swallow: Liquid Intake Recommendation: Thin Liquid Intake Strategies: Small Sips Solid Food Consistency: Dietary Recommendations: Chopped/Advanced (NDD3) Oral Medication Intake: Whole with Puree Please contact the pharmacy regarding appropriate crushable or liquid drug formulations that are available whenever modified delivery is recommended. Compensatory Strategies and Precautions to be Taken for Safe Swallow: Sitting Upright (90 deg) Liquids from Cup Liquids from Straw Alternate Liquids/Solids Rate of Ingestion Change Supervision While Eating and Drinking for Safe Swallow: Total Assistance (1:1) Swallowing Recommended Treatments: Compens. Strategy Educat. Recommendation for Speech: Inpatient Speech Therapy Frequency/Duration: Daily Date Range for Service Req: Admission - Discharge Timeline to reassess: PRN Senior Process Engineer Clinican/Clinical Fellow: No Supervisory Statement: I have reviewed and agree with the student/clinical fellow's documentation: N/A Speech Language Pathologist: Siena Thomas M.A., CCC-CHURN OPERATOR MARGARINE
[2024-03-23 15:14] VITALS: BP 98/64; PULSE 63; RESP 18; TEMP 36.4; O2SAT 97
[2024-03-23 16:32] LABS: Glucose, Whole Blood 149 mg/dL (60-115)
[2024-03-23 20:46] VITALS: BP 108/63; PULSE 65; RESP 20; TEMP 36.6; O2SAT 91
[2024-03-23 21:23] LABS: Glucose, Whole Blood 208 mg/dL (60-115)
[2024-03-23] MEDS: traZODone HCL 25 MG HALFTAB PO (21:43)
[2024-03-23] MEDS: Atorvastatin Calcium 80 MG TABLET PO (21:44)
[2024-03-23] MEDS: Latanoprost 0.005 % Ophth Sol 2.5 ML DROPS 1 DROP EYE-LEFT (21:47)
[2024-03-23] MEDS: Insulin Glargine,Hum.rec.anlog 100 UNIT/ML 10 ML VIAL SUBCUT (21:48)
[2024-03-23] MEDS: Insulin Lispro 100 UNIT/ML 3 ML VIAL SUBCUT (21:49)
--- NOTE | 2024-03-23 22:41 | P.CNID_ITS ---
History of Present Illness Data of Consult Service Date: 03/23/24 Requesting physician: Abdulkadir Mojica Primary Care Provider: Rolando Franklin MD HPI Reason for consult: recurrent Cdiff He presents to hospital with hypoxia and encephalopathy. He is confused. He had been in ICU and treated for pneumonia. He has had diarrhea. He has had Cdiff on 10/2023,12/2023 and 03/2024. Review of Systems 2 Review of Systems: Yes Unobtainable due to mental condition PMFSH Past Medical History Medical History PAF (paroxysmal atrial fibrillation) ESRD on dialysis Toxic metabolic encephalopathy Bacteremia due to Staphylococcus Gallstones Anemia HFrEF (heart failure with reduced ejection fraction) ESRD (end stage renal disease) Community acquired pneumonia Pneumonia Acute respiratory failure with hypoxia Anemia CKD (chronic kidney disease) ESRD (end stage renal disease) on dialysis Type 2 diabetes mellitus with unspecified complications Essential hypertension Chronic kidney disease, unspecified Chronic heart failure with preserved ejection fraction Atherosclerotic cardiovascular disease Family History Family History Father Esophageal cancer Mother Diabetes Hypertension Family history: reviewed and not pertinent Surgical History Surgical History History of colon resection History of cardiac catheterization (~07/18/20) Social History Social History Household Members: Unknown / Unable to assess Housing: Unknown / Unable to assess Housing Other:: elderly housing Unable to assess alcohol history related to: Unknown Alcohol intake: never Comment: bilateral wrist restraints for airway safety Patient Tobacco Use Status: Never used Tobacco Second Hand Smoke Exposure: No Advance Directives Date on File: 09/21/21 service: No Current occupational status: unemployed Meds Allergies Allergy/AdvReac Type Severity Reaction Status Date / Time No Known Allergies Allergy Verified 03/14/24 08:59 Active Medications: Current Medications Amiodarone HCl (Amiodarone Hcl 200 Mg Tablet) 200 mg PO DAILY [facility] Last Admin: 03/23/24 08:59 Dose: 200 mg Apixaban (Apixaban 2.5 Mg Tablet) 2.5 mg PO BID [facility] Last Admin: 03/23/24 21:44 Dose: 2.5 mg Aspirin (Aspirin 81 Mg Tab.Chew) 81 mg PO DAILY [facility] Last Admin: 03/23/24 08:58 Dose: 81 mg Atorvastatin Calcium (Atorvastatin Calcium 80 Mg Tablet) 80 mg PO BEDTIME [facility] Last Admin: 03/23/24 21:44 Dose: 80 mg Brimonidine Tartrate (Brimonidine Tartrate 0.2% Oph 5 Ml Bottle) 1 drop EYE- LEFT TID [facility] Last Admin: 03/23/24 21:47 Dose: 1 drop Carvedilol (Carvedilol 3.125 Mg Tablet) 3.125 mg PO BID [facility]; Protocol Last Admin: 03/23/24 22:03 Dose: Not Given Dorzolamide HCl (Dorzolamide Hcl 2 % Ophth Dee 10 Ml Drpbtl) 1 drop EYE-LEFT BID [facility] Last Admin: 03/23/24 21:47 Dose: 1 drop Fidaxomicin (Fidaxomicin 200 Mg Tablet) 200 mg PO BID [facility] Last Admin: 03/23/24 21:43 Dose: 200 mg Fluoxetine HCl (Fluoxetine Hcl 20 Mg Capsule) 20 mg PO BID [facility] Last Admin: 03/23/24 21:44 Dose: 20 mg Glucose (Glucose Gel 15 Gm Gel..Gram.) 15 gm PO Q15M PRN; Protocol PRN Reason: per Hypoglycemia Standing Ord. Dextrose (D10) 250 mls @ 750 mls/hr IV Q15M PRN PRN Reason: per Hypoglycemia Standing Ord. Last Infusion: 03/14/24 12:51 Dose: Infused Insulin Glargine (Insulin Glargine,Hum.Rec.Anlog 100 Unit/Ml 10 Ml Vial) 4 unit SUBCUT BEDTIME [facility] Last Admin: 03/23/24 21:48 Dose: 4 unit Insulin Human Lispro (Insulin Lispro 100 Unit/Ml 3 Ml Vial) 0 unit SUBCUT QIDACHS [facility]; Protocol Last Admin: 03/23/24 21:49 Dose: 2 unit Latanoprost (Latanoprost 0.005 % Ophth Dee 2.5 Ml Drops) 1 drop EYE-LEFT BEDTIME [facility] Last Admin: 03/23/24 21:47 Dose: 1 drop Midodrine (Midodrine Hcl 5 Mg Tablet) 5 mg PO TUTHSA [facility] Last Admin: 03/22/24 08:26 Dose: 5 mg Multivitamins/Vitamin C (Multivitamin Tablet) 1 tab PO DAILY [facility] Last Admin: 03/23/24 08:58 Dose: 1 tab Naloxone HCl (Naloxone Hcl 0.4 Mg/Ml Vial) 0.2 mg IVPUSH Q2M PRN PRN Reason: Excessive sedation or RR < 8 Sodium Chloride (0.9 % Sodium Chloride Flush 3 Ml Syringe) 3 ml IVFLUSH QSHIFT [facility] Last Admin: 03/23/24 21:59 Dose: 3 ml Timolol Maleate (Timolol Maleate 0.5 % Oph Dee 5 Ml Drbtl) 1 drop EYE-LEFT BID [facility] Last Admin: 03/23/24 21:47 Dose: 1 drop Trazodone HCl (Trazodone Hcl 25 Mg Halftab) 25 mg PO BEDTIME [facility] Last Admin: 03/23/24 21:43 Dose: 25 mg Vitamin D (Cholecalciferol (Vitamin D3) 25 Mcg Tablet) 50 mcg PO DAILY [facility] Last Admin: 03/23/24 08:59 Dose: 50 mcg Home Medications ?Medication ?Instructions ?Recorded ?Confirmed ?Last Taken ?Type amiodarone 200 mg tablet 1 tab PO DAILY 02/20/22 03/14/24 08/25/22 History bumetanide 1 mg tablet 1 tab PO BID 02/20/22 03/14/24 08/25/22 History carvedilol 3.125 mg tablet 1 tab PO BID 02/20/22 03/14/24 08/25/22 History cholecalciferol (vitamin D3) 50 1 tab PO DAILY 02/20/22 03/14/24 08/25/22 History mcg (2,000 unit) tablet insulin glargine 100 unit/mL (3 4 unit subcut BEDTIME 02/20/22 03/14/24 08/25/22 History mL) subcutaneous pen (Lantus Solostar U-100 Insulin) fluoxetine 20 mg capsule 1 cap PO BID 05/01/22 03/14/24 08/25/22 History acetaminophen 325 mg tablet 650 mg PO BID PRN Back Pain 03/14/24 03/14/24 Unknown History amino ac-protein hydro-whey 1 ea PO BID 03/14/24 03/14/24 Unknown History protein 10 gram-100 kcal/30 mL oral liquid (ProSource) aspirin 81 mg chewable tablet 81 mg PO DAILY 03/14/24 03/14/24 Unknown History atropine sulfate (PF) 1 % eye 1 drp ophthalmic-Left BID 03/14/24 03/14/24 Unknown History drops in a dropperette brimonidine 0.2 % eye drops 1 drp ophthalmic-Left TID 03/14/24 03/14/24 Unknown History dorzolamide-timolol (PF) 2 %-0.5 % 1 drp ophthalmic-Left BID 03/14/24 03/14/24 Unknown History eye drops in a dropperette (Cosopt (PF)) emollient 1 appl topical SUMOWEFR 03/14/24 03/14/24 Unknown History ergocalciferol (vitamin D2) 1,250 1,250 mcg PO Q30D 03/14/24 03/14/24 Unknown History mcg (50,000 unit) capsule (Vitamin D2) insulin lispro 100 unit/mL 1 sliding scale dose subcut DAILY 03/14/24 03/14/24 Unknown History subcutaneous pen (Humalog KwikPen (U-100) Insulin) latanoprost 0.005 % eye drops 1 drp ophthalmic-Left BEDTIME 03/14/24 03/14/24 Unknown History midodrine 5 mg tablet 5 mg PO TUTHSA 03/14/24 03/14/24 Unknown History multivitamin 1 tab PO DAILY 03/14/24 03/14/24 Unknown History ondansetron HCl 4 mg tablet 4 mg PO Q6H PRN Nausea 03/14/24 03/14/24 Unknown History peg 135-[id number]-evrgeawg 1 1 drp ophthalmic-Left BID Dry Eyes 03/14/24 03/14/24 Unknown History %-0.2 %-0.2 % eye drops (Artificial Tears ([id number])) trazodone 50 mg tablet 25 mg PO BEDTIME 03/14/24 03/14/24 Unknown History triamcinolone acetonide 0.1 % 1 appl topical BID 03/14/24 03/14/24 Unknown History topical cream valsartan 40 mg tablet 40 mg PO SUMOWEFR 03/14/24 03/14/24 Unknown History Physical Exam 2 Vital Signs: Vital Signs: Last Vital Signs Temp 97.8 F 03/23/24 20:46 Pulse 65 03/23/24 20:46 Resp 20 03/23/24 20:46 BP 108/63 03/23/24 20:46 Pulse Ox 91 L 03/23/24 20:46 O2 Del Method Room Air 03/23/24 20:46 O2 Flow Rate 2 03/23/24 15:14 FiO2 25 03/19/24 10:42 Oxygen Flow Rate 10 03/14/24 08:28 BMI result Body Mass Index 19.8 Psych: Other: confusion Results Labs 03/21/24 06:40 03/22/24 06:11 Microbiology Microbiology Results: Microbiology 03/14/24 09:10 Blood - Venous Blood Culture - Final No growth after 5 days. 03/14/24 08:51 Blood - Venous Blood Culture - Final No growth after 5 days. 03/14/24 Unknown Urine Catheterized - Holloway Catheter Urine Culture - Final Assessment and Plan (1) C. difficile colitis: Status: Acute (2) PAF (paroxysmal atrial fibrillation): Status: Acute (3) Shock: Status: Acute (4) Multifocal pneumonia: Status: Acute Plan He has been on antibiotics due to lung infection. He is at risk for Cdiff due to antibiotic necessity as well as immunosuppression due to ESRD He has had Cdiff at least three times. He is now on fidaxomicin which I dont think will do much. After 10 d fidaxomicin if covered would give po Vancomycin 125 mg qid for a week,tid for a week,bid for a week,daily for a week and then every ,,Tuesday indefinitely as bezlotoxumab (Zinplava) contraindicated with CHF and I doubt microbiome (stool transplant) would be safe and effective in immunocompromised host.
[2024-03-23 23:50] VITALS: BP 95/57; PULSE 73; RESP 20; TEMP 36.8; O2SAT 100
[2024-03-24 04:00] VITALS: BP 121/63; PULSE 63; RESP 20; TEMP 36.6; O2SAT 99
[2024-03-24 08:03] LABS: Glucose, Whole Blood 84 mg/dL (60-115)
[2024-03-24] MEDS: Midodrine HCl 5 MG TABLET PO (09:45)
[2024-03-24 10:28] VITALS: BP 114/59; PULSE 65; RESP 16; TEMP 36.2; O2SAT 100
[2024-03-24] MEDS: Multivitamin TABLET 1 TAB PO (10:43)
[2024-03-24] MEDS: FLUoxetine HCl 20 MG CAPSULE PO (10:43)
[2024-03-24] MEDS: Apixaban 2.5 MG TABLET PO (10:43)
[2024-03-24] MEDS: carvediloL 3.125 MG TABLET PO (10:44)
[2024-03-24] MEDS: Amiodarone HCL 200 MG TABLET PO (10:44)
[2024-03-24] MEDS: Fidaxomicin 200 MG TABLET PO (10:44)
[2024-03-24] MEDS: Cholecalciferol (Vitamin D3) 25 MCG TABLET 50 MCG PO (10:45)
[2024-03-24] MEDS: Aspirin 81 MG TAB.CHEW PO (10:45)
[2024-03-24] MEDS: Brimonidine Tartrate 0.2% Oph 5 ML BOTTLE 1 DROP EYE-LEFT (10:46)
[2024-03-24] MEDS: Dorzolamide HCl 2 % Ophth Sol 10 ML DRPBTL 1 DROP EYE-LEFT (10:46)
[2024-03-24] MEDS: 0.9 % Sodium Chloride Flush 3 ML SYRINGE IVFLUSH (10:47)
[2024-03-24 11:42] VITALS: BP 134/70; PULSE 64; RESP 14; TEMP 36.2; O2SAT 100
[2024-03-24 11:49] LABS: Glucose, Whole Blood 162 mg/dL (60-115)
--- NOTE | 2024-03-24 12:17 | P.DS_ITS ---
DS: Providers Provider Date of Service: 03/24/24 Date of admission: 03/14/24 11:50 Primary care physician: Rolando Franklin MD Consults: 03/15/24 09:19 Consult to Nephrology Routine Consulting Provider: Gordon Pérez Reason for consultation: Hemodialysis Has provider been notified: Yes 03/17/24 01:48 Consult to Wound Care Routine Reason for consultation: Stage 1 to buttock 03/23/24 08:28 Consult to Infectious Diseases Routine Consulting Provider: [facility] Reason for consultation: recurrent c. diff -- ? duration of treatment DS: Diagnosis Discharge Diagnosis (1) C. difficile colitis: Status: Acute (2) PAF (paroxysmal atrial fibrillation): Status: Acute (3) Shock: Status: Acute (4) Multifocal pneumonia: Status: Acute DS: Summary Hospital Course Hospital Course: History and physical as per admitting provider. Patient 69 Y M with hy pertension, diabetes mellitus, CAD c/b HF, paroxysmal atrial fibrillation on apixaban, ESRD on , presenting from facility w/ dyspnea, found to be hypoxic; in emergency department, patient persistently hypoxic, intubated; admitted ICU for c/v pulmonary edema and/or pneumonia 69-year-old man initially admitted to the ICU with dyspnea and found to be hypoxic and intubated for treatment of pulmonary edema. He was dialysis sized and subsequently extubated on 03/19/2024. He was treated with 5 days of IV Zosyn and supplemental oxygen. He had some encephalopathy as well which is lingering, according to his family has had a decline over the last year. Plan is to discharge patient back to long-term care facility. He has a history of recurrent C diff. He has been treated with fidaxomicin while inpatient, we will continue Vancomycin oral 125 mg 4 times a day for 1 week then 3 times a day for 1 week then twice a day for 1 week then every Tuesday and Tuesday indefinitely End-stage renal disease on dialysis, Tuesday, and Tuesday, on midodrine on dialysis days Diabetes mellitus type 2. Continue home medications Paroxysmal atrial fibrillation. Continue amiodarone and carvedilol. Apixaban. Hypertension Mental health. Continue home medications Hyperlipidemia/CAD. Continue aspirin and statin Moderate protein calorie malnutrition. Increase protein to diet Time Attestation Discharge Coordination Time (in mins): 36 Quality: Safe Use of Opioids Does Pt have an Active Cancer Diagnosis on the Problem List?: No Quality: Stroke Does the patient have a stroke diagnosis?: No Physical Exam Vital Signs: Vital Signs: Last Vital Signs Temp 97.2 F 03/24/24 11:42 Pulse 64 03/24/24 11:42 Resp 14 03/24/24 11:42 BP 134/70 03/24/24 11:42 Pulse Ox 100 03/24/24 11:42 O2 Del Method Nasal Cannula 03/24/24 11:42 O2 Flow Rate 2 03/24/24 11:42 FiO2 25 03/19/24 10:42 Oxygen Flow Rate 10 03/14/24 08:28 BMI result Body Mass Index 19.8 Appearing in no acute distress head is normocephalic atraumatic eyes pupils are PERRLA sclera is anicteric mouth throat mucous membranes are intact and moist neck is supple no lymphadenopathy, no JVD noted lung sounds are clear to auscultation heart regular rate rhythm, clear S1, S2 positive bowel sounds, abdomen is soft, nontender neuro patient is alert, confused DS: Data Data Completed and Pending Completed studies during hospitalization [Text1]: Procedures Performance of Urinary Filtration, Intermittent, Less than 6 Hours Per Day (08/25/22) Transfusion of Nonautologous Red Blood Cells into Peripheral Vein, Percutaneous Approach (05/01/22) Labs on day of discharge: Laboratory Results - last 24 hr 03/23/24 03/23/24 03/24/24 15:12 21:17 07:58 POC Glucose 149 H 208 H 84 03/24/24 11:45 POC Glucose 162 H Discharge Plan Discharge Anticipated Discharge Date/Time: 03/24/24 12:09 Patient Disposition: Xfer [facility] Discharge Diagnosis: Recurrent C diff infection Acute hypoxic respiratory failure secondary to community-acquired pneumonia and pulmonary edema end-stage renal disease on dialysis Referrals: [facility] Child[facility] [Outside] - 1 Week Rolando Franklin MD [Primary Care Provider] - 1 Week Discharge Medications: New vancomycin 125 mg capsule 125 mg PO QID Qty: 69 0RF Rx Instructions: Vancomycin oral 125 mg 4 times a day for 7 days then 3 times a day for 7 days then twice a day for 7 days then every Tuesday and Tuesday indefinitely Continued atorvastatin 80 mg tablet 80 mg PO BEDTIME Qty: 90 1RF Rx Instructions: Please call Dr. Abarca's office to schedule follow up appointment in order to continue refills; [phone]. Eliquis 2.5 mg Tablet 2.5 mg PO BID Qty: 60 0RF amiodarone 200 mg tablet 1 tab PO DAILY carvedilol 3.125 mg tablet 1 tab PO BID bumetanide 1 mg tablet 1 tab PO BID insulin glargine [Lantus Solostar U-100 Insulin] 100 unit/mL (3 mL) insulin pen 4 unit subcut BEDTIME cholecalciferol (vitamin D3) 50 mcg (2,000 unit) tablet 1 tab PO DAILY fluoxetine 20 mg capsule 1 cap PO BID multivitamin Tablet 1 tab PO DAILY latanoprost 0.005 % drops 1 drp ophthalmic-Left BEDTIME acetaminophen 325 mg Tablet 650 mg PO BID PRN (Reason: Back Pain) trazodone 50 mg tablet 25 mg PO BEDTIME ondansetron HCl 4 mg tablet 4 mg PO Q6H PRN (Reason: Nausea) midodrine 5 mg Tablet 5 mg PO TUTA triamcinolone acetonide 0.1 % cream 1 appl topical BID Rx Instructions: Apply to left arm topically. brimonidine 0.2 % drops 1 drp ophthalmic-Left TID aspirin 81 mg Tablet,Chewable 81 mg PO DAILY ergocalciferol (vitamin D2) [Vitamin D2] 1,250 mcg (50,000 unit) Capsule 1,250 mcg PO Q30D insulin lispro [Humalog KwikPen Insulin] 100 unit/mL Insulin Pen 1 sliding scale dose SUBCUT DAILY Protocol: Insulin Correction Scale Less than or equal to 110 ---- Give (units): 0 111 to 150 Give (units): 0 151 to 200 Give (units): 2 201 to 250 Give (units): 4 251 to 300 Give (units): 6 301 to 350 Give (units): 8 Greater than 350 Give (units): 10 Call MD if Blood Glucose > : 350 Rx Instructions: Inject MOWEFRSU before meals per sliding scale. Artificial Tears(rv-ched-rdub) 1-0.2-0.2 % Drops 1 drp OPHTHALMIC-LEFT BID valsartan 40 mg tablet 40 mg PO SUMOWEFR emollient Cream 1 appl TOPICAL SUMOWEFR dorzolamide-timolol (PF) [Cosopt (PF)] 2-0.5 % Dropperette 1 drp ophthalmic-Left BID ProSource 10-100 gram-kcal/30 mL Liquid 1 ea PO BID atropine sulfate (PF) 1 % Dropperette 1 drp ophthalmic-Left BID Discharge Orders: Discharge Order (Routine); Ordered 03/24/24 Ordered By: Ly Joseph Diet: Advance to usual diet Activity on Discharge: As tolerated Stand Alone Forms: Patient Portal Discharge page Print Language: Bulgarian Care Plan Goals: Vancomycin oral 125 mg 4 times a day for 1 week then 3 times a day for 1 week then twice a day for 1 week then every Tuesday and Tuesday indefinitely Health Concerns: Recurrent C diff infection Acute hypoxic respiratory failure secondary to community-acquired pneumonia and pulmonary edema end-stage renal disease on dialysis Plan of Treatment: Follow-up with primary care provider as needed Take all medications as prescribed Assessment: See discharge summary
--- NOTE | 2024-03-24 12:28 | P.CDIM_ITS ---
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 Please review below and update the documentation accordingly. Clinical Indicators: Per Wound Note 03/21/24: Right heel DTI, present on admission Based on the above, could you please provide further information regarding the ulcer/wound: Diabetic ulcer Please specify the location and laterality of the ulcer/wound Venous stasis ulcer Please specify the location and laterality of the ulcer/wound Arterial (ischemic) ulcer Please specify the location and laterality of the ulcer/wound Pressure (decubitus) ulcer Please include the stage of the ulcer and specify the location and laterality of the ulcer/wound Traumatic wound Please specify the location and laterality of the ulcer/wound Non-healing surgical wound Please specify the location and laterality of the ulcer/wound Other (explain) Clinically unable to determine (explain) Thank you, Danielle Shook RN Use of terms such as suspected, likely, concern for, or probable (associated with a specific diagnosi s that is being evaluated, monitored, or treated as if it exists) are acceptable and can be coded in the inpatient se tting, when documented at the time of discharge. Please use your independent medical judgment in providing your response. THIS QUERY IS PART OF THE PERMANENT MEDICAL RECORD
[2024-03-24] MEDS: timoloL maleate 0.5 % Oph Sol 5 ML DRBTL 1 DROP EYE-LEFT (12:39)
--- NOTE | 2024-03-24 13:09 | MHC.CM.PN ---
Addendum entered by Hazel Leon 03/24/24 13:12: CM spoke to RN at [facility], who said that they are fine with pt, coming back and requested DC summary be faxed to:[phone], CM faxed this and added DC summary to care port and sent. Original Note: Second IMM sent to HCP, pt has been medically cleared to return to [facility], where he resides LTC. He will return via BLS this afternoon.
--- NOTE | 2024-04-03 16:45 | P.CDIM_ITS ---
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 Please review below and update the documentation accordingly. Sepsis does not appear in the Discharge Summary 03/24/24 Documentation on the Critical Care H&P dated 03/14/24 included the diagnosis of sepsis. The patient's infectious clinical indicators include: Per Critical Care Progress Note 03/15/24: hypotension, norepinephrine gtt, wean as tolerated WBC 13.2 T 92.7 BP 73/38 Per Critical Care Progress Note 03/17/24: has multiple organ failures including acute respiratory failu re, acute encephalopathy, end-stage renal disease Recognized standard criteria for this condition and other infectious definitions includes: Bacteremia Abnormal laboratory test - does not indicate a clinically ill patient Sepsis Systemic manifestations of infection, with 2 or more SIRS criteria which include: Fever > 100.4?F or hypothermia < 96.8?F Leukocytosis - WBC > 12,000 or leukopenia, WBC < 4,000, or > 10% bands Tachycardia- > 90 beats/minute Tachypnea- RR > 20 breaths/minute or PaCO2 < 32mmHg Source: Merck Manual 2013 Documentation should include the known or suspected organism, and the underlying infection, such as U TI or pneumonia Severe Sepsis Sepsis with associated acute organ dysfunction, such as renal or respiratory failure Documentation should indicate the association between the sepsis and the organ dysfunction Septic Shock Severe sepsis with associated with circulatory failure, evidenced by hypotension and hypoperfusion Based on the above information and the recognized standard for sepsis, could you please clarify if th is diagnoses is still accurate and reflective of the patient's condition to ensure quality of the medical record. Sepsis/Severe Sepsis with Septic Shock is/was present and is a clinical diagnosis After study (the condition) has been ruled out Other (explain) Clinically unable to determine (explain) Thank you, Danielle Shook RN Use of terms such as suspected, likely, concern for, or probable (associated with a specific diagnosi s that is being evaluated, monitored, or treated as if it exists) are acceptable and can be coded in the inpatient se tting, when documented at the time of discharge. Please use your independent medical judgment in providing your response. THIS QUERY IS PART OF THE PERMANENT MEDICAL RECORD
== END 2024-03-24 14:53 | DRG 207 ==
LOC: HO.ED 11:49 → HO.EDOVER 12:11 → HO.ICU 12:22 → HO.IMC 03-20 13:36
PROVIDERS: Family Medicine; Internal Medicine Critical Care Medicine; Internal Medicine Pulmonary Disease; Nurse Practitioner Family; Physician Assistant; Admitting Provider Internal Medicine Critical Care Medicine; Emergency Provider Emergency Medicine; PCP Family Medicine; Visit Provider Nurse Practitioner Acute Care
DX: J18.9 Pneumonia, unspecified organism (principal); G93.41 Metabolic encephalopathy; J96.01 Acute respiratory failure with hypoxia; N18.6 End stage renal disease; J81.0 Acute pulmonary edema; I13.2 Hypertensive heart and chronic kidney disease with heart failure and with stage 5 chronic kidney disease, or end stage renal disease; E87.1 Hypo-osmolality and hyponatremia; E44.0 Moderate protein-calorie malnutrition; Z68.1 Body mass index [BMI] 19.9 or less, adult; L97.419 Non-pressure chronic ulcer of right heel and midfoot with unspecified severity; R68.0 Hypothermia, not associated with low environmental temperature; D63.1 Anemia in chronic kidney disease; E11.621 Type 2 diabetes mellitus with foot ulcer; E78.5 Hyperlipidemia, unspecified; E11.649 Type 2 diabetes mellitus with hypoglycemia without coma; I48.0 Paroxysmal atrial fibrillation; D69.6 Thrombocytopenia, unspecified; I25.10 Atherosclerotic heart disease of native coronary artery without angina pectoris; Z99.2 Dependence on renal dialysis; I25.5 Ischemic cardiomyopathy; B96.89 Other specified bacterial agents as the cause of diseases classified elsewhere; E11.22 Type 2 diabetes mellitus with diabetic chronic kidney disease; Z20.822 Contact with and (suspected) exposure to COVID-19; Z79.4 Long term (current) use of insulin; Z79.01 Long term (current) use of anticoagulants; Z79.82 Long term (current) use of aspirin; Z79.899 Other long term (current) drug therapy
CPT/HCPCS: 0241U; 36415; 70450; 71045; 71250; 80048; 80051; 80053; 80076; 80202; 81001; 82040; 82310; 82565; 82803; 82947; 83605; 83690; 83735; 83880; 84100; 84145; 84484; 84520; 85007; 85025; 85027; 85610; 86140; 86850; 86900; 86901; 87040; 87086; 87324; 87493; 87633; 87640; 87641; 90999; 92526; 92610; 93005; 94002; 94003; 99285; C1758; J0692; J1939; J1940; J2251; J2543; J2704; J3010; J3370; P9047

== ENCOUNTER → 2024-03-14 11:50 | Outpatient (BNV) | payer MEDICARE, MEDICAID, SELFPAY | PROVIDERS: Admitting Provider Internal Medicine Critical Care Medicine; Emergency Provider Emergency Medicine; PCP Family Medicine; Visit Provider Nurse Practitioner Acute Care | DX: A04.72 Enterocolitis due to Clostridium difficile, not specified as recurrent (principal); I48.0 Paroxysmal atrial fibrillation; R57.9 Shock, unspecified; J18.9 Pneumonia, unspecified organism | CPT/HCPCS: 99232; 99239; 99499 ==

== ENCOUNTER → 2024-03-14 11:50 | Outpatient (BNV) | payer MEDICARE, MEDICAID, SELFPAY | PROVIDERS: Admitting Provider Internal Medicine Critical Care Medicine; Emergency Provider Emergency Medicine; PCP Family Medicine; Visit Provider Internal Medicine | DX: A04.72 Enterocolitis due to Clostridium difficile, not specified as recurrent (principal); I48.0 Paroxysmal atrial fibrillation; R57.9 Shock, unspecified; J18.9 Pneumonia, unspecified organism | CPT/HCPCS: 99222 ==

== ENCOUNTER → 2024-03-14 11:50 | Outpatient (BNV) | payer MEDICARE, MEDICAID, SELFPAY | PROVIDERS: Admitting Provider Internal Medicine Critical Care Medicine; Emergency Provider Emergency Medicine; PCP Family Medicine; Visit Provider Internal Medicine Pulmonary Disease | DX: J96.01 Acute respiratory failure with hypoxia (principal); N18.6 End stage renal disease; Z99.2 Dependence on renal dialysis; I50.22 Chronic systolic (congestive) heart failure; I48.0 Paroxysmal atrial fibrillation | CPT/HCPCS: 99232; 99291 ==

== ENCOUNTER → 2024-03-14 11:50 | Outpatient (BNV) | payer MEDICARE, MEDICAID, SELFPAY | PROVIDERS: Admitting Provider Internal Medicine Critical Care Medicine; Emergency Provider Emergency Medicine; PCP Family Medicine; Visit Provider Internal Medicine Critical Care Medicine | DX: N18.6 End stage renal disease (principal); Z99.2 Dependence on renal dialysis; J96.01 Acute respiratory failure with hypoxia; J18.9 Pneumonia, unspecified organism | CPT/HCPCS: 36556; 99223; 99291 ==